=== PATIENT | female | born 1950 | race Caucasian/White ===

== ENCOUNTER 2019-07-18 12:11 | Outpatient (CLI) | payer MEDICARE, OTHER, SELFPAY ==
--- NOTE | 2019-07-18 | ECHO_ITS ---
Patient Info Name: Syeda Marks Age: 68 years : 1950 Gender: Female Ht: 64 in Wt: 200 lbs BSA: 2.06 m2 HR: 99 bpm BP: 155 / 87 mmHg Heart Rhythm: Sinus Rhythm Technical Quality: Good Exam Date: 07/18/2019 12:54 PM Exam Location: [facility] Patient Status: Outpatient Admit Date: 07/18/2019 Staff Ordering Physician: Kiran Rivera MD Clinical Molecular Geneticist: Sabi Caba RDCS Attending Provider: Kiran Rivera MD Referring Physician: Miguel HOWELL; Exam Type: CA echo doppler color flow Study Info Indications Z01.818 - Encounter for other preprocedural examination Complete two-dimensional, color flow and Doppler transthoracic echocardiogram is performed. Summary 1. Left ventricular chamber dimension is normal. 2. Left ventricular systolic function is normal, estimated at 60-65%. 3. No valvular abnormalities. 4. Compared with exam from September of last year there are no differences. Left Ventricle Left ventricular chamber dimension is normal. Left ventricular systolic function is normal, estimated at 60-65%. The left ventricular diastolic function is grade I diastolic dysfunction. Right Ventricle Right ventricular chamber dimension is normal. Left Atria Left atrial chamber dimension is normal. Right Atria Right atrial chamber dimension is normal. Aortic Valve The aortic valve is normal. Pulmonic Valve The pulmonic valve is not well visualized. Mitral Valve The mitral valve has normal leaflets. Tricuspid Valve The tricuspid valve leaflets are normal. Pericardium/Pleural The pericardium appears normal. Aorta The aortic root size at the sinus of Valsalva is normal. Left Ventricular Outflow Tract Name Value Normal LVOT 2D LVOT Diameter 1.9 cm LVOT Doppler LVOT Peak Gradient 4 mmHg LVOT Mean Gradient 2 mmHg LVOT VTI 21 cm LVOT VTI/AV VTI Ratio 1.1 LVOT Stroke Volume 57 ml LVOT CO 4.7 l/min LVOT CI 2.3 l/min/m2 Pulmonic Valve Name Value Normal RVOT Doppler RVOT Peak Gradient 2 mmHg PV Doppler PV Peak Gradient 3 mmHg Mitral Valve Name Value Normal MV Doppler MV Decel [place] 397 cm/s2 MV PHT 51 ms MV Area (PHT) 4.3 cm2 4.0-5.0 MV Diasto
== END 2019-07-18 12:12 | disposition home or self-care (01) ==
PROVIDERS: PCP Internal Medicine; Visit Provider Internal Medicine Hematology & Oncology
DX: Z01.818 Encounter for other preprocedural examination (principal); C50.911 Malignant neoplasm of unspecified site of right female breast
CPT/HCPCS: 93306

== ENCOUNTER 2020-01-05 09:29 | Outpatient (CLI) | payer MEDICARE, OTHER, SELFPAY ==
--- NOTE | 2020-01-05 | ECHO_ITS ---
Patient Info Name: Syeda Marks Age: 69 years : 1950 Gender: Female Ht: 64 in Wt: 211 lbs BSA: 2.12 m2 HR: 83 bpm BP: 137 / 66 mmHg Heart Rhythm: Sinus Rhythm Technical Quality: Good Exam Date: 01/05/2020 10:07 AM Exam Location: [facility] Patient Status: Outpatient Admit Date: 01/05/2020 Staff Ordering Physician: Kiran Rivera MD Pump Tester: Christie De Paz RDCS Attending Provider: Kiran Rivera MD Referring Physician: Miguel HOWELL; Exam Type: CA echo doppler color flow Study Info Indications C50.111 - Malignant neoplasm of central portion of right female breast Complete two-dimensional, color flow and Doppler transthoracic echocardiogram is performed. Summary 1. Complete two-dimensional, color flow and Doppler transthoracic echocardiogram is performed. 2. Left ventricular chamber dimension is normal. 3. Left ventricular systolic function is normal, estimated at 60-65%. 4. There is mildly increased left ventricular wall thickness. 5. The left ventricular diastolic function is grade I diastolic dysfunction. 6. Left atrial chamber dimension is mildly enlarged. 7. There is mild mitral valve regurgitation. 8. There is mild tricuspid valve regurgitation. Left Ventricle Left ventricular chamber dimension is normal. Left ventricular systolic function is normal, estimated at 60-65%. There is mildly increased left ventricular wall thickness. The left ventricular diastolic function is grade I diastolic dysfunction. Right Ventricle Right ventricular chamber dimension is normal. Right ventricular systolic function is normal. Left Atria Left atrial chamber dimension is mildly enlarged. Right Atria Right atrial chamber dimension is normal. Atrial Septum Intact interatrial septum visualized by color flow imaging. Aortic Valve The aortic valve is probable trileaflet. There is no aortic valve sclerosis. There is no aortic valve stenosis. There is trace aortic valve regurgitation. Pulmonic Valve The pulmonic valve is normal. There is no pulmonic valve stenosis. There is trace pulmonic regurgitation. Mitral Valve The mitral valve has normal leaflets. There is no mitral valve stenosis. There is mild mitral valve regurgitation. Tricuspid Valve The tricuspid valve leaflets are normal. There is no significant tricuspid valve stenosis. There is mild tricuspid valve regurgitation. No pulmonary hypertension, estimated pulmonary arterial systolic pressure is 32 mmHg. Pericardium/Pleural The pericardium appears normal. There is no pericardial effusion. Inferior Vena Cava Normal inferior vena cava with >50% collapse upon inspiration consistent with normal right atrial pressure, 5 mmHg. Aorta The aortic root size at the sinus of Valsalva is normal. Left Ventricular Outflow Tract Name Value Normal LVOT 2D LVOT Diameter 2.0 cm LVOT Doppler LVOT Peak Gradient 4 mmHg LVOT Mean Gradient 3 mmHg LVOT VTI 23 cm LVOT VTI/AV VTI Ratio 0.9
== END 2020-01-05 09:30 | disposition home or self-care (01) ==
LOC: ANHCARD 09:29
PROVIDERS: PCP Internal Medicine; Visit Provider Internal Medicine Hematology & Oncology
DX: C50.911 Malignant neoplasm of unspecified site of right female breast (principal); I34.0 Nonrheumatic mitral (valve) insufficiency; I36.1 Nonrheumatic tricuspid (valve) insufficiency
CPT/HCPCS: 93306

== ENCOUNTER 2020-04-11 16:09 | Outpatient (CLI) | payer MEDICARE, OTHER, SELFPAY ==
[2020-04-11 16:57] LABS: Alanine Aminotransferase 25 U/L (4-35); Aspartate Amino Transferase 27 U/L (14-36)
== END 2020-04-11 16:10 | disposition home or self-care (01) ==
LOC: ANHLAB 16:12
PROVIDERS: PCP Internal Medicine; Visit Provider Podiatrist Foot & Ankle Surgery
DX: B35.1 Tinea unguium (principal)
CPT/HCPCS: 36415; 84450; 84460

== ENCOUNTER → 2020-07-28 03:15 | Outpatient (CLI) | payer MEDICARE, OTHER, SELFPAY ==
[2020-07-28 19:46] LABS: SARS-CoV-2 RNA PCR Negative
== END ==
PROVIDERS: PCP Internal Medicine; Visit Provider Surgery
DX: Z01.812 Encounter for preprocedural laboratory examination (principal); Z20.822 Contact with and (suspected) exposure to COVID-19
CPT/HCPCS: C9803; U0003; U0005

== ENCOUNTER 2020-08-01 01:27 | Day surgery (SDC) | payer MEDICARE, OTHER, SELFPAY ==
[2020-07-17 10:12] VITALS: BMI 32.9
[2020-08-01 10:09] VITALS: BP 143/63; PULSE 97; RESP 20; TEMP 36.8; O2SAT 100
[2020-08-01] MEDS: LACTATED RINGERS 1,000 ML 30 ML IV CONT ×2 (10:30→12:26)
--- NOTE | 2020-08-01 10:48 | WPDANESEPPF ---
Anes - Initial Pre Proc Eval Procedure: Operation Date: 08/01/20 12:00 Proposed Procedures p Removal Timi Cath - Sandra Camacho MD Date/Time: 08/01/20 10:48 Surgeon: Sandra Camacho MD Pre Op Diagnosis: invasive ductal CA of breast Patient Data Age: 69 Gender: F Height: 5 ft 4 in Weight: 96.6 kg Last Vital Signs Temp 36.8 C 08/01/20 10:09 Pulse 97 08/01/20 10:09 Resp 20 08/01/20 10:09 BP 143/63 H 08/01/20 10:09 Pulse Ox 100 08/01/20 10:09 Allergies Allergy/AdvReac Type Severity Reaction Status Date / Time No Known Allergies Allergy Verified 08/01/20 10:21 Home Medications Medication Instructions Recorded Confirmed Type ascorbic acid (vitamin C) 500 mg PO DAILY 12/17/18 08/01/20 History famotidine 20 mg PO DAILY PRN 12/17/18 08/01/20 History multivitamin 1 tablet PO DAILY 12/17/18 08/01/20 History anastrozole 1 mg PO DAILY 06/08/19 08/01/20 History diphenoxylate-atropine 2.5 1 tablet PO QID PRN 07/20/19 08/01/20 History mg-0.025 mg tablet Lamisil 250 mg PO DAILY 05/24/20 08/01/20 History lisinopril 20 mg PO DAILY 08/01/20 08/01/20 History Patient hx anesthesia problems: none Family hx anesthesia problems: none PMFSH Past Medical History Medical History HTN (hypertension) Surgical History Surgical History Hx of appendectomy Family History Family History Mother Patient's mother is Father Cerebrovascular accident Social History Social History Smoking status: Never smoker Second hand tobacco smoke exposure: No Alcohol intake: current Drinks per week: 1 Substance use: never Living arrangements: with family Additional living arrangements comments: HUSB Spiritual care concerns: No Anes - Eval Final PreProcedure Day of Procedure 08/01/20 10:48 Patient weight: obese Heart: regular rate and rhythm Lungs: clear to auscultation Airway: Mallampati scale class II Neurological: alert and oriented Last oral intake: >/= 8 hours ASA classification: III Emergent: no Anesthetic plan: proceed Anesthesia type and monitoring: general GIVS and standard monitoring Informed Consent: The patient's anesthetic plan and its attendant risks and benefits were discussed with the patient/family/POA. Questions were solicited and answers provided to the satisfaction of the patient/family/POA.
--- NOTE | 2020-08-01 11:41 | PM.IMHP ---
H&P: HPI History of Present Illness Date/Time: 08/01/20 11:41 Pt is a 69 y/o F presenting for removal of VAD. Pt is s/p treatment for R breast cancer. Pt reports no issues c VAD. Pt reports it is regularly flushed. Chief Complaint: R breast cancer Review of Systems Review of Systems: All systems reviewed & are unremarkable except as noted in HPI and below PMFSH Past Medical History Medical History HTN (hypertension) Surgical History Surgical History Hx of appendectomy Family History Family History Mother Patient's mother is Father Cerebrovascular accident Social History Social History Smoking status: Never smoker Second hand tobacco smoke exposure: No Alcohol intake: current Drinks per week: 1 Substance use: never Living arrangements: with family Additional living arrangements comments: HUSB Spiritual care concerns: No Meds Home Medications and Allergies Home Medications Medication Instructions Recorded Confirmed Type ascorbic acid (vitamin C) 500 mg PO DAILY 12/17/18 08/01/20 History famotidine 20 mg PO DAILY PRN 12/17/18 08/01/20 History multivitamin 1 tablet PO DAILY 12/17/18 08/01/20 History anastrozole 1 mg PO DAILY 06/08/19 08/01/20 History diphenoxylate-atropine 2.5 1 tablet PO QID PRN 07/20/19 08/01/20 History mg-0.025 mg tablet Lamisil 250 mg PO DAILY 05/24/20 08/01/20 History lisinopril 20 mg PO DAILY 08/01/20 08/01/20 History Allergies Allergy/AdvReac Type Severity Reaction Status Date / Time No Known Allergies Allergy Verified 08/01/20 10:21 Vital Signs Vital Signs - 24 hr 08/01/20 10:09 Temperature 36.8 C Pulse Rate 97 Respiratory Rate 20 Blood Pressure 143/63 H Pulse Oximetry 100 Exam Const: General: cooperative, comfortable and no acute distress Orientation/consciousness: patient oriented x3 Chest: Chest palpation & inspection: normal inspection of the chest Other: L sided VAD - C/D/I Resp: Effort & Inspection: normal respiratory effort Auscultation: clear to auscultation bilaterally Cardio: Rate: regular rate Rhythm: regular rhythm GI: Inspection: normal to inspection GI Palp: No abdominal tenderness, Yes Soft to palpation and No Tenderness to palpation present (GI) Skin: General skin exam: normal color and no rashes or lesions noted Assessment and Plan Assessment and plan (1) Malignant neoplasm of upper-inner quadrant of right breast in female, estrogen receptor positive: Code(s): C50.211 - Malignant neoplasm of upper-inner quadrant of right female breast; Z17.0 - Estrogen receptor positive status [ER+] Status: Acute Assessment and Plan: will setup for removal today
--- NOTE | 2020-08-01 11:46 | WPDHPUPDATE1 ---
History and Physical Update Update Date/Time: 08/01/20 11:46 History and Physical has been reviewed, including an updated exam of the patient. There are NO changes in the patient's condition. Risks, benefits, and alternatives have been discussed and questions answered. Patient agrees to proceed with procedure.
[2020-08-01] MEDS: KETOROLAC 15 MG/ML VIAL (*BKC) IV PUSH (12:08)
--- NOTE | 2020-08-01 12:17 | PM.PROC ---
Procedure Note - Detailed Date of procedure: 08/01/20 Pre-op diagnosis: invasive ductal CA of breast Post-op diagnosis: same Procedure performed: Removal left chest venous access device Description of procedure: The patient was taken to the operating room placed in the supine position. After adequate induction of MAC anesthesia, the patient was prepped and draped in the normal sterile fashion. A time-out was then done to verify the patient's identity, as well as the procedure being performed. I began by localizing the previous incision line in the left chest and around the port itself. Once this was done, I made an incision through the old incision to the level of the port. I then bluntly dissected around the port, and located the 2 sutures holding the port in place. I then cut the 2 sutures and removed the port from the pocket. I was then able to remove the port and catheter in full. The catheter was noted in the left subclavian vein. I then held pressure at the level of the left subclavian vein for approximately 5 minutes. Hemostasis was noted after pressure was held. I then localized the pocket further and closed the subcutaneous tissue with 3 0 Vicryl suture. I then closed the skin with 4 O Monocryl subcuticular suture. Dermabond was then placed on the wound. The patient tolerated the procedure well, was alert and awake in the operating room postoperatively, and will be transferred to the recovery in stable condition. Implants: none Anesthesia: MAC and local Surgeon: Sandra Camacho MD Estimated blood loss (mL): 5 Drains: No Packing: No Pathology: none sent Complications: No immediate complications Condition: stable Disposition: PACU Findings: removal left-sided VAD
[2020-08-01 12:24] VITALS: BP 128/61; PULSE 94; RESP 16; O2SAT 97
[2020-08-01 13:00] VITALS: BP 119/56; PULSE 82; RESP 16
[2020-08-01 13:30] VITALS: BP 106/60; PULSE 72; RESP 16
== END 2020-08-01 13:45 | disposition home or self-care (01) ==
PROVIDERS: PCP Internal Medicine; Visit Provider Surgery
PROC: (CPT 36589; principal; 2020-08-01 12:00)
DX: Z45.2 Encounter for adjustment and management of vascular access device (principal); Z85.3 Personal history of malignant neoplasm of breast; I10 Essential (primary) hypertension; Z79.811 Long term (current) use of aromatase inhibitors; E66.9 Obesity, unspecified; Z68.36 Body mass index [BMI] 36.0-36.9, adult
CPT/HCPCS: 36590; J0690; J1100; J1885; J2250; J2405; J2704; J3010; J7120

== ENCOUNTER 2021-09-10 11:45 | Outpatient (CLI) | payer MEDICARE, OTHER, SELFPAY ==
[2021-09-10 16:16] LABS: Cholesterol 265 mg/dL (0-200); HDL Direct 43 mg/dL; Triglycerides 270 mg/dL (<150)
[2021-09-10 16:31] LABS: LDL Cholesterol Direct 118 mg/dL
[2021-09-10 18:57] LABS: Folic Acid > 20.0 ng/mL (2.76->20)
== END 2021-09-10 11:46 | disposition home or self-care (01) ==
LOC: ANHLAB 11:47
PROVIDERS: PCP Physician Assistant; Visit Provider Physician Assistant
DX: E66.9 Obesity, unspecified (principal); R53.83 Other fatigue
CPT/HCPCS: 36415; 80061; 82607; 82746; 84443

== ENCOUNTER 2021-10-01 10:16 | Outpatient (CLI) | payer MEDICARE, OTHER, SELFPAY ==
--- NOTE | ~2021-10-01 | PE_ITS ---
EXAMINATION: PET skull to mid thigh DATE: 10/01/2021 12:34 INDICATION: Malignant neoplasm of the upper inner quadrant of the right breast TECHNIQUE: Blood glucose level was 101 mg/dL. 10.247 mCi of 18-fluorodeoxyglucose (18-FDG) was admini stered i.v. Low dose computed tomography (CT) images were acquired from the base of the brain to the proximal thighs for attenuation correction and anatomic localization. Positron emission tomography (P ET) images were acquired in the same distribution beginning 56 minutes after injection. Images includ ing fused PET/CT images were reconstructed in axial, coronal, and sagittal planes. Automated exposure control technique was employed. The dose-length product was 1006.63mGy-cm. COMPARISON: None FINDINGS: Head/neck: There is symmetric increased activity in the oral cavity, masseter muscles, laryngeal muscles and ocu lar muscles without CT correlate, likely physiologic. No pathologically enlarged cervical lymphadenop athy or suspicious foci of increased soft tissue FDG uptake in the visualized head or neck. Chest: Mild emphysema suggested however evaluation of fine pulmonary parenchymal detail is somewhat limited by motion artifact throughout the majority of the lungs. 11 x 9 mm noncalcified left lower lobe nodul e at the posterior sulcus without evident FDG uptake. There are couple small calcified nodules in the right upper lobe consistent with old granulomatous disease. Mild bibasilar atelectasis. Heart size i s normal. No pericardial or pleural effusion. Thoracic aorta is normal in caliber. Surgical clip and postoperative scarring at the upper inner quadrant of the right breast likely at the site of a report ed right breast cancer. No nodular soft tissue density a suspicious increased FDG uptake at this loca tion suggest local recurrence. Additional surgical clips at the right axilla consistent with associat ed lymph node dissection. Prominent increased FDG uptake at the bilateral patti likely related to meta static lymphadenopathy with maximal SUV of 11.6 on the right and 10.5 on the left. The associated lym ph nodes are unable to be clearly distinguished from the adjacent vasculature but do not appear signi ficantly enlarged. Abdomen/pelvis/proximal thighs: Physiologic renal accumulation and excretion of FDG activity in the kidneys, bladder and along portio ns of ureters. Normal degree and heterogenous pattern of increased uptake throughout the liver withou t radiologic correlate or dominant FDG avid lesion. Likely benign 1.5 cm low-attenuation lesion at th e medial aspect of the spleen without evident FDG uptake likely representing a splenic cyst or ottoniel ioma. The gallbladder, pancreas and bilateral adrenal glands are normal. Mild uptake scattered throug hout the bowels without radiologic correlate, also likely physiologic. Fibroid uterus with multiple l arge calcified uterine fibroids without increased FDG uptake. No pathologically enlarged abdominal or pelvic lymphadenopathy. No other suspicious FDG avid soft tissue lesions. Musculoskeletal: Numerous scattered FDG avid bone lesions many with subtle sclerosis scattered throughout the neck, ch est, abdomen, pelvis and proximal femurs. The largest includes a large confluent region of prominent increased FDG uptake occupying much of the right sacrum and adjacent right innominate bone where ther e is a subtle permeative pattern and patchy sclerosis consistent with metastatic disease. The maximal SUV of the disease in the right ilium is 13.2 in the region of the right ischium. Nondisplaced sagit tally oriented pathologic fracture at the right sacral ala. Additional likely pathologic fracture at the right pubic body with similar sclerosis and increased FDG uptake. IMPRESSION: 1. Widespread, FDG avid metastatic lesions of bone with likely pathologic fracture at the right sacra l ala and right pubic body. 2. Prominent
[2021-10-01 10:57] LABS: Glucose Point of Care 101 mg/dl (65-105)
== END 2021-10-01 10:17 | disposition home or self-care (01) ==
PROVIDERS: PCP Physician Assistant; Visit Provider Internal Medicine Hematology & Oncology
DX: C50.211 Malignant neoplasm of upper-inner quadrant of right female breast (principal); Z17.0 Estrogen receptor positive status [ER+]; D25.9 Leiomyoma of uterus, unspecified
CPT/HCPCS: 78815; A9552

== ENCOUNTER 2021-10-07 12:26 | Outpatient (CLI) | payer MEDICARE, OTHER, SELFPAY ==
[2021-10-07 13:07] LABS: INR 1.1; Prothrombin Time 14.1 Seconds (11.1-14.7)
[2021-10-07 13:08] LABS: Partial Thromboplastin Time 34.7 SECONDS (22.3-36.8)
== END 2021-10-07 12:27 | disposition home or self-care (01) ==
PROVIDERS: PCP Physician Assistant; Visit Provider Surgery
DX: C50.211 Malignant neoplasm of upper-inner quadrant of right female breast (principal); Z17.0 Estrogen receptor positive status [ER+]
CPT/HCPCS: 36415; 85610; 85730

== ENCOUNTER 2021-10-09 02:00 | Day surgery (SDC) | payer MEDICARE, OTHER, SELFPAY ==
--- NOTE | 2021-10-07 11:14 | PC.NURSE ---
Report to the Outpatient Waiting Room, entrance under the green pavilion located off [facility], at time _1200 on date ___10/09/21____. OR Time: _1400 . - You and your visitor will be asked a series of questions to screen for COVID 19 for your protection. - Only one visitor is allowed at this time. - The patient visitor is requested to leave or wait in car when not with patient. - A mask is required within the hospital. Patients may have clear liquids (water, carbonated beverages, clear teas, apple juice) until 3 hours prior to surgery with a maximum of 20 ounces. - No food from midnight until time of surgery - Infants may have breast milk until 4 hours before surgery, infant formula 6 hours prior to surgery. - Children will be allowed to drink immediately following surgery. If applicable, please bring a bottle or sippy cup to assist with drinking. Juice, water, soda, and popsicles are readily available. For infants on formula, please bring formula the day of surgery. Pacifiers are allowed. Take the following medications with a SIP of water the morning of surgery: _LETROZOLE Medications to discontinue per physician __ALL VITAMINS AND SUPPLEMENTS 3 DAYS PRE OP Date to take last dose____10/07/21 Please no make-up, nail togolese, hairspray, perfume, deodorant, or body powder the day of surgery. No jewelry (including any body piercings) or valuables the day of surgery, leave them at home. Please take a shower or bath the night before, or the morning of, surgery with an antibacterial soap. Wear comfortable, loose fitting clothing. Children are encouraged to wear pajamas. - Jewelry must be removed prior to entering the operating room. Rings and piercings that are not removed may be cut off. - The hospital will not accept responsibility for valuables. - Please leave all valuables, including medications, at home the day of surgery. If you are going home after surgery, a licensed security patrol driver must drive you home. - NO public transportation without another adult. - We recommend that an adult stay with you for 24 hours following discharge. - We also recommend that you do not drive, make important decision, drink alcoholic beverages, or take any drugs that were not prescribed by your health care provider for at least 24 hours after your discharge time. For Pediatric surgeries, we recommend two adults accompany the child home (only one inside the building at this time). Follow any additional instructions given to you from your surgeon. If you or anyone in your household have experienced Covid symptoms in the past week, please notify your surgeon or the nurse liaison at the phone number below for possible testing. Telephone instructions given to _PATIENT and asked if any additional questions and then verbalized understanding. Patient advised to call surgeon office or pre surgery nurse liaison [phone] if any additional questions.
[2021-10-07 11:21] VITALS: BMI 31.7
--- NOTE | 2021-10-08 15:38 | WPDANESEPPF ---
Anes - Initial Pre Proc Eval Procedure: Operation Date: 10/09/21 14:00 Proposed Procedures p Insertion Timi Cath - Kb Haro DO Date/Time: 10/08/21 15:38 Surgeon: Kb Haro DO Pre Op Diagnosis: malignant neoplasm of right breast Patient Data Age: 70 Gender: F Height: 1.63 m Weight: 83.95 kg Allergies Allergy/AdvReac Type Severity Reaction Status Date / Time No Known Allergies Allergy Verified 10/09/21 12:53 Home Medications Medication Instructions Recorded Confirmed Type ascorbic acid (vitamin C) 500 mg 500 mg PO DAILY 12/17/18 10/07/21 History tablet famotidine 20 mg tablet 20 mg PO DAILY PRN Dyspepsia 12/17/18 10/07/21 History multivitamin 1 tablet PO DAILY 12/17/18 10/07/21 History diphenoxylate-atropine 2.5 1 tablet PO QID PRN diarrhea 07/20/19 10/09/21 History mg-0.025 mg tablet (Lomotil) lisinopril 20 mg tablet See Rx Instructions .Route 01/18/21 10/07/21 Rx .COMPLEX #90 tabs acetaminophen 500 mg capsule 500 mg PO Q6H PRN Pain 10/07/21 10/07/21 History calcium carbonate 600 mg-vitamin 1 tablet PO DAILY 10/07/21 10/07/21 History D3 10 mcg (400 unit) tablet (Calcium 600 + D(3)) cholecalciferol (vitamin D3) 50 50 mcg PO DAILY 10/07/21 10/07/21 History mcg (2,000 unit) tablet ferrous sulfate 325 mg (65 mg 325 mg PO DAILY 10/07/21 10/07/21 History iron) tablet letrozole 2.5 mg tablet 2.5 mg PO DAILY 10/07/21 10/07/21 History Patient hx anesthesia problems: none Family hx anesthesia problems: none Results Review: All pre-operative results and documents have been reviewed as part of the pre-operative evaluation. [facility] Past Medical History Medical History (Updated 10/08/21 @ 17:05 by Kiran Rivera MD) Anemia GERD (gastroesophageal reflux disease) History of breast cancer HTN (hypertension) Surgical History Surgical History Hx of appendectomy Family History Family History Mother Patient's mother is Father Cerebrovascular accident Social History Social History Smoking status: Never smoker Second hand tobacco smoke exposure: No Alcohol intake: current Drinks per week: 1 Substance use: never Living arrangements: with family Additional living arrangements comments: HUSB Spiritual care concerns: No Anes - Eval Final PreProcedure Day of Procedure 10/08/21 15:38 Patient weight: obese Heart: regular rate and rhythm Lungs: clear to auscultation Airway: Mallampati scale class II Neurological: alert and oriented Last oral intake: >/= 8 hours ASA classification: III Emergent: no Anesthetic plan: proceed Anesthesia type and monitoring: general GIVS and standard monitoring Results Review: All pre-operative results and documents have been reviewed as part of the pre-operative evaluation. Informed Consent: The patient's anesthetic plan and its attendant risks and benefits were discussed with the patient/family/POA. Questions were solicited and answers provided to the satisfaction of the patient/family/POA.
--- NOTE | ~2021-10-09 | XR_ITS ---
XR chest port-a-cath/central 10/09/2021 15:59 Indication: Insertion of portacatheter Procedure: AP portable chest Comparison: 03/22/2019 Findings: Portacatheter tip in the SVC. Heart size normal. Bibasilar atelectasis. No focal pneumonia, edema or pneumothorax. Impression: 1: Bibasilar atelectasis. Reviewed, dictated and finalized at location A. Impression: 1: Bibasilar atelectasis.
--- NOTE | ~2021-10-09 | XR_ITS ---
EXAMINATION: XR fl guide central line place DATE: 10/09/2021 14:00 CDT INDICATION: INSERT LYNDA CATH . TECHNIQUE: 2 fluoroscopic images of the left lower and right upper mediastinum were obtained during c entral line placement performed by the surgeon. I was not present in the operating room. Fluoroscopy exposure time was 88.1 seconds. Cumulative dose was 15.68 mGy. COMPARISON: None FINDINGS: Left-sided catheter tubing terminates in the cavoatrial junction. IMPRESSION: Fluoroscopic documentation of central line placement. Please refer to the operative note for complete procedural details . Reviewed, dictated and finalized at location K. IMPRESSION: Fluoroscopic documentation of central line placement. Please refer to the opera tive note for complete procedural details .
[2021-10-09 12:30] VITALS: BP 147/86; PULSE 115; RESP 14; TEMP 36.2; O2SAT 100
[2021-10-09] MEDS: LACTATED RINGERS 1,000 ML 30 ML IV CONT (12:30)
[2021-10-09] MEDS: KETOROLAC 15 MG/ML VIAL (*BKC) IV PUSH (12:47)
--- NOTE | 2021-10-09 13:24 | SUR.PREOP ---
pt informed delay in procedure
--- NOTE | 2021-10-09 14:31 | PM.IMHP ---
H&P: HPI History of Present Illness Date/Time: 10/09/21 14:31 Chief Complaint: Metastatic right breast cancer Narrative: 70 yo woman presents for port placement. She previously had a portacath in the left chest. This was removed 1 year ago, but now she has evidence of recurrent cancer. She now needs another port. Review of Systems Review of Systems: All systems reviewed & are unremarkable except as noted in HPI and below Constitutional: Constitutional: Denies chills, Denies fever(s), Denies headache(s) and Denies weight loss Eyes: Eyes: Denies change in vision ENT: Denies dizziness, Denies headache(s), Denies neck mass and Denies throat swelling Cardiovascular: Cardiovascular: Denies chest pain, Denies lightheadedness and Denies dyspnea Respiratory: Respiratory: Denies cough, Denies dyspnea and Denies wheezing Gastrointestinal: Gastrointestinal: Denies abdominal pain, Denies change in bowel habits, Denies nausea and Denies vomiting Genitourinary: Genitourinary: Denies hematuria and Denies dysuria Musculoskeletal: Musculoskeletal: Reports as per HPI Integumentary/Breasts: Skin/Breast: Reports as per HPI Neurologic: Denies dizziness and Denies headache(s) Allergic/Immunologic: Allergic/Immunologic: Denies throat swelling and Denies wheezing [facility] Past Medical History Medical History (Updated 10/08/21 @ 17:05 by Kiran Rivera MD) Anemia GERD (gastroesophageal reflux disease) History of breast cancer HTN (hypertension) Surgical History Surgical History Hx of appendectomy Family History Family History Mother Patient's mother is Father Cerebrovascular accident Social History Social History Smoking status: Never smoker Second hand tobacco smoke exposure: No Alcohol intake: current Drinks per week: 1 Substance use: never Living arrangements: with family Additional living arrangements comments: [facility] Spiritual care concerns: No Meds Home Medications and Allergies Home Medications Medication Instructions Recorded Confirmed Type ascorbic acid (vitamin C) 500 mg 500 mg PO DAILY 12/17/18 10/07/21 History tablet famotidine 20 mg tablet 20 mg PO DAILY PRN Dyspepsia 12/17/18 10/07/21 History multivitamin 1 tablet PO DAILY 12/17/18 10/07/21 History diphenoxylate-atropine 2.5 1 tablet PO QID PRN diarrhea 07/20/19 10/09/21 History mg-0.025 mg tablet (Lomotil) lisinopril 20 mg tablet See Rx Instructions .Route 01/18/21 10/07/21 Rx .COMPLEX #90 tabs acetaminophen 500 mg capsule 500 mg PO Q6H PRN Pain 10/07/21 10/07/21 History calcium carbonate 600 mg-vitamin 1 tablet PO DAILY 10/07/21 10/07/21 History D3 10 mcg (400 unit) tablet (Calcium 600 + D(3)) cholecalciferol (vitamin D3) 50 50 mcg PO DAILY 10/07/21 10/07/21 History mcg (2,000 unit) tablet ferrous sulfate 325 mg (65 mg 325 mg PO DAILY 10/07/21 10/07/21 History iron) tablet letrozole 2.5 mg tablet 2.5 mg PO DAILY 10/07/21 10/07/21 History Allergies Allergy/AdvReac Type Severity Reaction Status Date / Time No Known Allergies Allergy Verified 10/09/21 12:53 Vital Signs Vital Signs - 24 hr 10/09/21 12:30 Temperature 36.2 C L Pulse Rate 115 H Respiratory Rate 14 Blood Pressure 147/86 H Pulse Oximetry 100 Oxygen Delivery Room Air Exam Const: General: no acute distress and alert Orientation/consciousness: patient oriented x3 HENMT: Head: normocephalic and atraumatic Ears: hearing grossly normal bilaterally General nose exam: Normal nares present Mouth: Yes Normal oral and palatal mucosa present Eyes: Periorbital: periorbital findings normal Sclera: sclerae normal EOM: EOMs intact bilaterally Neck: Neck: normal visual inspection, no lymphadenopathy and trachea midline Chest: Ch
--- NOTE | 2021-10-09 14:34 | WPDHPUPDATE1 ---
History and Physical Update Update Date/Time: 10/09/21 14:34 History and Physical has been reviewed, including an updated exam of the patient. There are NO changes in the patient's condition. Risks, benefits, and alternatives have been discussed and questions answered. Patient agrees to proceed with procedure.
[2021-10-09] MEDS: ceFAZolin 2 GM/D5W 50 ML 2 GM/50 ML BAG IVPB (14:42)
[2021-10-09] MEDS: LIDO 1%/EPINEPHRINE 1:100,000 50 ML VIAL INFILTRATE (15:06)
[2021-10-09] MEDS: HEPARIN SODIUM, PORCINE 10,000 UNITS/10 ML VIAL 3000 UNITS IRRIGATION (15:10)
[2021-10-09] MEDS: HEPARIN SODIUM 5,000 UNITS/ML VIAL 5000 UNITS IRRIGATION (15:11)
--- NOTE | 2021-10-09 15:26 | W.PM.PROC2 ---
Procedure Note - Detailed Date of Procedure 10/09/21 Pre-op Diagnosis malignant neoplasm of right breast Post-op Diagnosis Same Procedure Performed Left Internal Jugular tunneled Port-a-Cath placement using ultrasound and fluoroscopic guidance Surgeon Kb Haro, DO Anesthesia MAC and Local (0.5% bupivicaine with epinephrine) Indications This is a 70-year-old woman who presents with recurrent metastatic breast cancer. She was previously treated for breast cancer and she had a port placed which was removed about 1 year ago. On recent follow-up imaging she was found to have metastatic breast cancer involving the bones. She now is in need of another port placement to start treatment. Findings SonoSite ultrasound was used to identify the left internal jugular vein. This was visualized as a compressible vessel just lateral to the pulsatile carotid artery. An 18 gauge introducer needle was then advanced under ultrasound guidance directly into the lumen of the left internal jugular vein. Dark nonpulsatile blood was aspirated. Fluoroscopy was then used to guide advancement of the guidewire followed by the dilator and sheath. The final fluoroscopic images demonstrated the catheter tip in the distal SVC and no kinks along its path. Description of Procedure Procedure as well as risks, benefits, and alternatives were discussed with patient. Written consent was obtained and placed in chart prior to procedure. Patient was brought back to surgical suite. Was placed supine on operating table. Time-out was done confirm patient procedure. IV sedation was then administered by the Anesthesia Department. The chest and neck area was prepped and draped in sterile fashion using chlorhexidine prep. Patient was placed in Trendelenburg position. SonoSite ultrasound was used to identify the left internal jugular vein. It was visualized as a compressible vessel just lateral to the carotid artery. 1% lidocaine with epinephrine was infiltrated directly over the vessel under ultrasound guidance. An 18 gauge introducer needle was then advanced under ultrasound guidance directly into the left internal jugular vein. Dark nonpulsatile blood was aspirated. A 0.035 in guidewire was then advanced through the needle under fluoroscopic guidance. The guidewire was visualized advancing all the way down into the superior vena cava. 1% lidocaine with epinephrine was then infiltrated on the left anterior chest and along the tract up to the guidewire insertion site. A 3 cm incision was made with a 15 blade scalpel, and electrocautery was then used for dissection down through the subcutaneous tissue to the pectoral fascia. A pocket was created just inferior to the incision using blunt dissection. A small bear incision was then also made at the insertion site at the neck. The tunneler was then advanced from the chest incision up to the neck incision and the catheter tubing was brought up through this tract. The dilator and sheath were then advanced over the guidewire under fluoroscopic visualization. The dilator and guidewire were then removed leaving the sheath in place. The catheter tubing was then advanced through the sheath under fluoroscopic guidance. The sheath was unsnapped and carefully peeled away. The catheter tubing was released underneath the neck incision. Fluoroscopy was used to confirm proper placement of the catheter tubing and no kinks along its path. The catheter was then cut to proper length and secured to the port. The port was then accessed with a Jackson needle and aspirated and flushed with heparinized saline. The port function with ease. The port was then hep-locked with Hep-Lock solution. The port was then placed within the pocket that was created, and was secured to the fascia using 3 0 Prolene simple interrupted sutures. The patient was flattened out in bed. Christina's fascia was reapproximated using 3 0 Vicryl simple interrupted sutures. The skin of the in
[2021-10-09 15:28] VITALS: BP 101/62; PULSE 94; RESP 16; O2SAT 97
--- NOTE | 2021-10-09 15:51 | SUR.PHASEII ---
PORTABLE CXR IN PROGRESS.
[2021-10-09 15:55] VITALS: BP 96/73; PULSE 91; RESP 16
[2021-10-09 16:25] VITALS: BP 123/57; PULSE 83; RESP 16
== END 2021-10-09 16:46 | disposition home or self-care (01) ==
PROVIDERS: PCP Physician Assistant; Visit Provider Surgery
PROC: (CPT 36561; principal; 2021-10-09 14:00)
DX: C50.211 Malignant neoplasm of upper-inner quadrant of right female breast (principal); C79.51 Secondary malignant neoplasm of bone; Z17.0 Estrogen receptor positive status [ER+]; I10 Essential (primary) hypertension; D64.9 Anemia, unspecified; K21.9 Gastro-esophageal reflux disease without esophagitis; E66.9 Obesity, unspecified; Z68.31 Body mass index [BMI] 31.0-31.9, adult
CPT/HCPCS: 36561; 77001; C1788; J0690; J1644; J1885; J2250; J2704; J3010; J7040; J7120

== ENCOUNTER 2021-10-30 12:15 | Outpatient (CLI) | payer MEDICARE, OTHER, SELFPAY ==
--- NOTE | 2021-10-30 | ECHO_ITS ---
Patient Info Name: Syeda Marks Age: 70 years : 1950 Gender: Female Ht: 64 in Wt: 185 lbs BSA: 1.98 m2 HR: 100 bpm BP: 174 / 80 mmHg Technical Quality: Good Exam Date: 10/30/2021 12:55 PM Exam Location: [facility] Patient Status: Outpatient Admit Date: 10/30/2021 Staff Ordering Physician: Kiran Rivera MD Survival Specialist: Ean Campbell RDCS, RT Attending Provider: Kiran Rivera MD Referring Physician: Miguel HOWELL; Exam Type: CA echo doppler color flow Study Info Indications C80.1 - Malignant (primary) neoplasm, unspecified Complete two-dimensional, color flow and Doppler transthoracic echocardiogram is performed. Strain analysis performed. Summary 1. Complete two-dimensional, color flow and Doppler transthoracic echocardiogram is performed. 2. Left ventricular chamber dimension is normal. 3. Left ventricular systolic function is normal, estimated at 65-70%. 4. The left ventricular diastolic function is grade I diastolic dysfunction. 5. E/e' 9 is minimally elevated. 6. Global longitudinal strain is mildly abnormal at -16.0%. Left Ventricle E/e' 9 is minimally elevated. Global longitudinal strain is mildly abnormal at -16.0%. Left ventricular chamber dimension is normal. Left ventricular systolic function is normal, estimated at 65-70%. The left ventricular diastolic function is grade I diastolic dysfunction. Right Ventricle Right ventricular systolic function is normal and with normal TAPSE 2.4 cm. Right ventricular chamber dimension is normal. Left Atria Left atrial chamber dimension is normal. Right Atria Right atrial chamber dimension is normal. Aortic Valve The aortic valve is trileaflet. There is no aortic valve stenosis. There is no aortic valve regurgitation. Pulmonic Valve There is no pulmonic regurgitation. Mitral Valve There is no mitral valve stenosis. There is no mitral valve regurgitation. Tricuspid Valve There is no tricuspid valve regurgitation. Pericardium/Pleural There is no pericardial effusion. Inferior Vena Cava Normal inferior vena cava with >50% collapse upon inspiration consistent with normal right atrial pressure, 5 mmHg. Aorta The aortic root size at the sinus of Valsalva is normal. Left Ventricular Outflow Tract Name Value Normal LVOT 2D LVOT Diameter 2.0 cm LVOT Doppler LVOT Peak Gradient 4 mmHg LVOT Mean Gradient 2 mmHg LVOT VTI 16 cm LVOT VTI/AV VTI Ratio 0.7 LVOT Stroke Volume 50 ml LVOT CO 4.5 l/min LVOT CI 2.3 l/min/m2 Mitral Valve Name Value Normal MV Doppler MV Decel [place] 366 cm/s2 MV PHT
== END 2021-10-30 12:16 | disposition home or self-care (01) ==
LOC: ANHCARD 12:17
PROVIDERS: PCP Physician Assistant; Visit Provider Internal Medicine Hematology & Oncology
DX: C50.211 Malignant neoplasm of upper-inner quadrant of right female breast (principal); Z17.0 Estrogen receptor positive status [ER+]; C80.1 Malignant (primary) neoplasm, unspecified; I10 Essential (primary) hypertension
CPT/HCPCS: 93306

== ENCOUNTER 2022-01-16 08:19 | Outpatient (CLI) | payer MEDICARE, OTHER, SELFPAY ==
--- NOTE | ~2022-01-16 | NM_ITS ---
EXAMINATION: NM bone scan whole body DATE: 01/16/2022 12:52 INDICATION: Malignant neoplasm of upper inner quadrant of right breast. TECHNIQUE: 24.5 mCi Tc-99m HDP was administered intravenously. Delayed whole-body scintigrams were o btained. COMPARISON: PET/CT 10/01/21 FINDINGS: There is increased activity in the intertrochanteric regions of the proximal femora, bilate ral pelvis, most vertebral bodies, sternum, and scapulae correlating with lesions by PET/CT. There ar e foci of increased activity in the skull without CT correlate. These findings are consistent with me tastatic disease. IMPRESSION: 1. Widespread osseous metastatic disease. Reviewed, dictated and finalized at location A. PMENT TESTER
== END 2022-01-16 08:20 | disposition home or self-care (01) ==
LOC: ANHIMG 08:21
PROVIDERS: PCP Physician Assistant; Visit Provider Internal Medicine Hematology & Oncology
DX: C50.211 Malignant neoplasm of upper-inner quadrant of right female breast (principal); Z17.0 Estrogen receptor positive status [ER+]
CPT/HCPCS: 78306; A9561

== ENCOUNTER 2022-01-28 07:27 | Outpatient (CLI) | payer MEDICARE, OTHER, SELFPAY ==
--- NOTE | 2022-01-28 | ECHO_ITS ---
Patient Info Name: Syeda Marks Age: 71 years : 1950 Gender: Female Ht: 64 in Wt: 189 lbs BSA: 2.00 m2 HR: 85 bpm BP: 145 / 84 mmHg Technical Quality: Good Exam Date: 01/28/2022 9:53 AM [facility] Patient Status: Outpatient Admit Date: 01/28/2022 Staff Ordering Physician: Kiran Rivera MD Shot Polisher: Ean Campbell RDCS, RT Attending Provider: Kiran Rivera MD Referring Physician: Miguel HOWELL; Exam Type: CA echo doppler color flow Study Info Indications C80.1 - Malignant (primary) neoplasm, unspecified Complete two-dimensional, color flow and Doppler transthoracic echocardiogram is performed. Strain analysis performed. Summary 1. Complete two-dimensional, color flow and Doppler transthoracic echocardiogram is performed. 2. Left ventricular chamber dimension is normal. 3. Left ventricular systolic function is normal, estimated at 60-65%. 4. The left ventricular diastolic function is grade I diastolic dysfunction. 5. E/e' 6 is not elevated. 6. Global longitudinal strain is normal at -18.1%. 7. There is mild aortic valve sclerosis. 8. There is trace tricuspid valve regurgitation. Left Ventricle E/e' 6 is not elevated. Global longitudinal strain is normal at -18.1%. Left ventricular chamber dimension is normal. Left ventricular systolic function is normal, estimated at 60-65%. The left ventricular diastolic function is grade I diastolic dysfunction. Right Ventricle Right ventricular systolic function is normal and with normal TAPSE 2.1 cm. Right ventricular chamber dimension is normal. Left Atria Left atrial chamber dimension is normal. Right Atria Right atrial chamber dimension is normal. Aortic Valve The aortic valve is trileaflet. There is mild aortic valve sclerosis. There is no aortic valve stenosis. There is no aortic valve regurgitation. Pulmonic Valve There is no pulmonic regurgitation. Mitral Valve There is no mitral valve stenosis. There is no mitral valve regurgitation. Tricuspid Valve There is trace tricuspid valve regurgitation. RVSP is not calculated due to an inadequate TR jet. Pericardium/Pleural There is no pericardial effusion. Inferior Vena Cava Normal inferior vena cava with >50% collapse upon inspiration consistent with normal right atrial pressure, 5 mmHg. Aorta The aortic root size at the sinus of Valsalva is normal. Left Ventricular Outflow Tract Name Value Normal LVOT 2D LVOT Diameter 2.0 cm LVOT Doppler LVOT Peak Gradient 4 mmHg LVOT Mean Gradient 2 mmHg LVOT VTI 20 cm LVOT VTI/AV VTI Ratio 0.8 LVOT Stroke Volume 64 ml LVOT CO 5.9 l/min LVOT CI 3.0 l/min/m2 Mitral Valve Name Value Normal MV
== END 2022-01-28 07:28 | disposition home or self-care (01) ==
LOC: ANHCARD 07:28
PROVIDERS: PCP Physician Assistant; Visit Provider Internal Medicine Hematology & Oncology
DX: C50.211 Malignant neoplasm of upper-inner quadrant of right female breast (principal); Z17.0 Estrogen receptor positive status [ER+]; I35.8 Other nonrheumatic aortic valve disorders
CPT/HCPCS: 93306

== ENCOUNTER 2022-01-28 07:29 | Outpatient (CLI) | payer MEDICARE, OTHER, SELFPAY ==
--- NOTE | ~2022-01-28 | CT_ITS ---
EXAMINATION: CT chest abdomen pelvis w con DATE: 01/28/2022 07:59 INDICATION: Malignant neoplasm of upper inner quadrant of right breast; restaging TECHNIQUE: Computed tomography (CT) of the chest, abdomen and pelvis was performed with 100 CC Omnipa que 350 intravenous contrast. Automated exposure control and iterative reconstruction technique were employed. Exam dose: 1069.71 mGy-cm total exam DLP. COMPARISON: 10/01/2021 PET/CT scan FINDINGS: Left internal jugular Port-A-Cath catheter tip in the upper right atrium. Surgical clips and likely postsurgical seroma of the inner mid to upper right breast are again noted. There is mild skin thickening of the breast in this area. Right axillary surgical clips consistent with prior axillary node dissection.. Normal size and homogeneous enhancement of the thyroid gland. No hilar or mediastinal mass lesion or lymphadenopathy. Normal heart size. No pericardial or pleural effusion. No thoracic aortic aneurysm or dissection. There are occasional calcified pulmonary granulomas consistent with old pulmonary granulomatous disea se. Mild discoid atelectasis or scarring in the lower lung zones, most prominent at the left lower lobe. No pulmonary infiltrate or consolidation. No suspicious pulmonary mass density is noted. The gallbladder is present. No bile duct or pancreatic duct dilatation. No hepatic space-occupying mass lesion. No pancreatic mass lesion or calcification. 1.5 cm cystic lesion of the spleen, nonspecific. No splenomegaly. Normal morphology of the adrenal glands. 1.9 cm upper pole left renal cyst. No renal mass lesion or urinary tract calculus or hydroureteroneph rosis is evident. Urinary bladder is relatively evacuated. A large calcified uterine fibroids are noted Normal caliber of the abdominal aorta with minimal atherosclerotic calcification. No intraperitoneal or retroperitoneal or pelvic mass lesion or adenopathy or ascites. There are fluid levels in the small and large bowel suggesting possible enterocolitis. No bowel obstr uction, bowel wall thickening, pneumatosis or intraperitoneal free air is detected. There is extensive osteosclerotic metastatic disease of the axial skeleton, including sternum, spine, sacrum, pelvis, with significant progression particularly in the thoracic and lumbar spine since 10/01. There are associated pathologic mild to moderate anterior wedge compression fracture deformiti es of T9, T12 and L1 IMPRESSION: Progression of extensive osteosclerotic metastatic disease since 10/01/2021 Reviewed, dictated and finalized at Location A. Reviewed, dictated and finalized at location B. STED LIVING ASSISTANT
== END 2022-01-28 07:30 | disposition home or self-care (01) ==
PROVIDERS: PCP Physician Assistant; Visit Provider Internal Medicine Hematology & Oncology
DX: C50.211 Malignant neoplasm of upper-inner quadrant of right female breast (principal); C79.51 Secondary malignant neoplasm of bone; Z17.0 Estrogen receptor positive status [ER+]
CPT/HCPCS: 71260; 74177; 93306; Q9967

== ENCOUNTER 2022-04-18 07:24 | Outpatient (CLI) | payer MEDICARE, OTHER, SELFPAY ==
--- NOTE | 2022-04-18 | ECHO_ITS ---
Patient Info Name: Syeda Marks Age: 71 years : 1950 Gender: Female Ht: 64 in Wt: 189 lbs BSA: 2.00 m2 HR: 77 bpm BP: 163 / 88 mmHg Technical Quality: Good Exam Date: 04/18/2022 7:35 AM Exam Location: [facility] Patient Status: Outpatient Admit Date: 04/18/2022 Staff Ordering Physician: Kiran Rivera MD Attending Provider: Kiran Rivera MD Referring Physician: Miguel HOWELL; Exam Type: CA echo doppler color flow Study Info Complete two-dimensional, color flow and Doppler transthoracic echocardiogram is performed. Strain analysis performed. Summary 1. Complete two-dimensional, color flow and Doppler transthoracic echocardiogram is performed. 2. Left ventricular chamber dimension is normal. 3. Left ventricular systolic function is normal, estimated at 60-65%. 4. The left ventricular diastolic function is grade I diastolic dysfunction. 5. E/e' 9 is minimally elevated. 6. Global longitudinal strain is normal at -18.3%. 7. No pulmonary hypertension, estimated pulmonary arterial systolic pressure is 33 mmHg. Left Ventricle E/e' 9 is minimally elevated. Global longitudinal strain is normal at -18.3%. Left ventricular chamber dimension is normal. Left ventricular systolic function is normal, estimated at 60-65%. The left ventricular diastolic function is grade I diastolic dysfunction. Right Ventricle Right ventricular systolic function is normal and with normal TAPSE 2.5 cm. Right ventricular chamber dimension is normal. Left Atria Left atrial chamber dimension is normal. Right Atria Right atrial chamber dimension is normal. Aortic Valve The aortic valve is trileaflet. There is no aortic valve stenosis. There is no aortic valve regurgitation. Pulmonic Valve There is no pulmonic regurgitation. Mitral Valve There is no mitral valve stenosis. There is no mitral valve regurgitation. Tricuspid Valve There is no tricuspid valve regurgitation. No pulmonary hypertension, estimated pulmonary arterial systolic pressure is 33 mmHg. Pericardium/Pleural There is no pericardial effusion. Inferior Vena Cava Normal inferior vena cava with >50% collapse upon inspiration consistent with normal right atrial pressure, 5 mmHg. Aorta The aortic root size at the sinus of Valsalva is normal. Left Ventricular Outflow Tract Name Value Normal LVOT 2D LVOT Diameter 2.0 cm LVOT Doppler LVOT Peak Gradient 4 mmHg LVOT Mean Gradient 2 mmHg LVOT VTI 21 cm LVOT VTI/AV VTI Ratio 0.9 LVOT Stroke Volume 68 ml LVOT CO 5.2 l/min LVOT CI 2.6 l/min/m2 Pulmonic Valve Name Value Normal RVOT Doppler RVOT Peak Gradient
== END 2022-04-18 07:25 | disposition home or self-care (01) ==
LOC: ANHCARD 07:26
PROVIDERS: PCP Physician Assistant; Visit Provider Internal Medicine Hematology & Oncology
DX: Z51.81 Encounter for therapeutic drug level monitoring (principal); C50.911 Malignant neoplasm of unspecified site of right female breast
CPT/HCPCS: 93306

== ENCOUNTER 2022-04-29 08:21 | Outpatient (CLI) | payer MEDICARE, OTHER, SELFPAY ==
--- NOTE | ~2022-04-29 | CT_ITS ---
Clinical Indication: Breast cancer CT Scan of the Chest with Contrast: Technique: Contiguous sections were acquired throughout the chest after intravenous administration of 75 cc of Omnipaque 350. Dose reduction technique was used on this scan by utilizing automated exposu re control and iterative reconstruction technique. The dose-length product (DLP) was 273.72 mGy-cm. COMPARISON: 01/28/2022 Findings: There is no evidence of any significant mediastinal, hilar or axillary lymphadenopathy. No large pulm onary embolus seen. There is no evidence of aortic dissection or aneurysm. There is no evidence of pleural or pericardial effusion. Several calcified pulmonary granulomas noted. No suspicious pulmonary nodule seen. Images through the upper abdomen reveal stable splenic cyst. Extensive sclerotic osseous metastatic disease is unchanged from prior exam. Impression: Extensive osseous metastatic disease, unchanged. No significant pulmonary abnormality seen. Reviewed, dictated and finalized at [facility]. NG SPECIALIST Impression: Extensive osseous metastatic disease, unchanged. No significant pulmonary abnormality seen.
--- NOTE | ~2022-04-29 | NM_ITS ---
NM bone scan whole body INDICATION: Invasive ductal carcinoma the breasts TECHNIQUE: The patient was injected with 26.4 mCi Tc 99m HDP. Gamma camera images of the region of i nterest and whole body were obtained. COMPARISON: CT dated 04/29/2022 and bone scan dated 01/16/2022 FINDINGS: There are multiple foci of abnormal radiotracer uptake in the skull, thoracic and lumbar sp ine, bilateral ribs, sternum, intertrochanteric region of the right femur, consistent with metastatic disease. IMPRESSION: 1: Abnormal multifocal uptake throughout the visualized bones described above, consistent with wides pread osseous metastases. Reviewed, dictated and finalized at location L. SEARCH MANAGER IMPRESSION: 1: Abnormal multifocal uptake throughout the visualized bones described above, consistent with widespread osseous metastases.
== END 2022-04-29 08:22 | disposition home or self-care (01) ==
PROVIDERS: PCP Physician Assistant; Visit Provider Internal Medicine Hematology & Oncology
DX: C50.911 Malignant neoplasm of unspecified site of right female breast (principal); C79.51 Secondary malignant neoplasm of bone
CPT/HCPCS: 36415; 71260; 78306; 80053; 85025; 86300; A9503; Q9967

== ENCOUNTER 2022-07-22 08:31 | Outpatient (CLI) | payer MEDICARE, OTHER, SELFPAY ==
--- NOTE | ~2022-07-22 | CT_ITS ---
EXAMINATION:CT diagnostic chest w con DATE: 07/22/2022 09:06 INDICATION: Invasive ductal carcinoma of right breast. TECHNIQUE: Computed tomography (CT) of the chest was performed with 75 mL Omnipaque 350 intravenous c ontrast. Automated exposure control and iterative reconstruction technique were employed. The dose-le ngth product (DLP) was 260.19 mGy-cm. COMPARISON: Chest CT 04/29/2022 FINDINGS: There is mild scarring at the lung apices. Calcified pulmonary nodules are consistent with old granulomatous disease. There is mild radiation fibrosis in anterior right lung. There is mild ate lectasis bilaterally. No pleural effusion. There is a left internal jugular port with tip in right at rium. The heart size is normal. No pericardial effusion. There are surgical clips in right axilla. Th ere are changes of lumpectomy in right breast. There is a 1.7 cm cyst in the spleen. There is a 1.9 c m cyst in left kidney. There are widespread sclerotic lesions of bone, consistent with metastatic dis ease. There is mild chronic height loss of multiple vertebral bodies. IMPRESSION: 1. Stable widespread sclerotic lesions of bone, consistent with metastatic disease. Reviewed, dictated and finalized at location A. IMPRESSION: 1. Stable widespread sclerotic lesions of bone, consistent with metastatic dise ase.
--- NOTE | ~2022-07-22 | NM_ITS ---
EXAMINATION: NM bone scan whole body DATE: 07/22/2022 12:20 INDICATION: Invasive ductal carcinoma of right breast. TECHNIQUE: 23.1 mCi Tc-99m HDP was administered intravenously. Delayed whole-body scintigrams were o btained. COMPARISON: Chest CT 07/22/2022, bone scan 04/29/2022, CT abdomen and pelvis 01/28/22 FINDINGS: There are widespread foci of increased activity in the spine, pelvis, ribs, and proximal fe roth correlating with sclerotic lesions by CT, consistent with metastatic disease. IMPRESSION: 1. Widespread osseous metastatic disease, stable from 04/29/2022. Reviewed, dictated and finalized at location A.
== END 2022-07-22 08:32 | disposition home or self-care (01) ==
LOC: ANHIMG 08:32
PROVIDERS: PCP Physician Assistant; Visit Provider Internal Medicine Hematology & Oncology
DX: D05.11 Intraductal carcinoma in situ of right breast (principal); C79.51 Secondary malignant neoplasm of bone
CPT/HCPCS: 71260; 78306; A9503; Q9967

== ENCOUNTER 2022-07-24 12:21 | Outpatient (CLI) | payer MEDICARE, OTHER, SELFPAY ==
--- NOTE | 2022-07-24 13:00 | ECHO_ITS ---
Patient Info Name: Syeda Marks Age: 71 years : 1950 Gender: Female Ht: 64 in Wt: 190 lbs BSA: 2.01 m2 HR: 84 bpm BP: 147 / 71 mmHg Technical Quality: Fair Exam Date: 07/24/2022 1:16 PM Exam Location: [facility] Patient Status: Outpatient Admit Date: 07/24/2022 Staff Ordering Physician: Kiran Rivera MD [employer] Refuel[employer] Handler: Aliya Ponce RDCS Attending Provider: Kiran Rivera MD Referring Physician: Miguel HOWELL; Exam Type: CA echo doppler color flow Study Info Indications C50.911 - INVASIVE DUCTAL CARCINOMA OF BREAST, FEMALE, RIGHT Complete two-dimensional, color flow and Doppler transthoracic echocardiogram is performed. Summary 1. Complete two-dimensional, color flow and Doppler transthoracic echocardiogram is performed. 2. Left ventricular chamber dimension is normal. 3. Left ventricular systolic function is normal, estimated at 65-70%. 4. There is mild concentric increased left ventricular wall thickness. 5. The left ventricular diastolic function is grade I diastolic dysfunction. 6. E/e' 11 is mildly elevated. 7. There is mild aortic valve sclerosis. 8. No pulmonary hypertension, estimated pulmonary arterial systolic pressure is 12 mmHg. Left Ventricle E/e' 11 is mildly elevated. Left ventricular chamber dimension is normal. Left ventricular systolic function is normal, estimated at 65-70%. There is mild concentric increased left ventricular wall thickness. The left ventricular diastolic function is grade I diastolic dysfunction. Right Ventricle Right ventricular systolic function is normal and with normal TAPSE 2.3 cm. Right ventricular chamber dimension is normal. Left Atria Left atrial chamber dimension is normal. Right Atria Right atrial chamber dimension is normal. Aortic Valve The aortic valve is trileaflet. There is mild aortic valve sclerosis. There is no aortic valve stenosis. There is no aortic valve regurgitation. Pulmonic Valve There is no pulmonic regurgitation. Mitral Valve There is no mitral valve stenosis. There is no mitral valve regurgitation. Tricuspid Valve There is no tricuspid valve regurgitation. No pulmonary hypertension, estimated pulmonary arterial systolic pressure is 12 mmHg. Pericardium/Pleural There is no pericardial effusion. Inferior Vena Cava Normal inferior vena cava with >50% collapse upon inspiration consistent with normal right atrial pressure, 5 mmHg. Aorta The aortic root size at the sinus of Valsalva is normal. Left Ventricular Outflow Tract Name Value Normal LVOT 2D LVOT Diameter 1.7 cm LVOT Doppler LVOT Peak Gradient 4 mmHg LVOT Mean Gradient 1 mmHg LVOT VTI 19 cm LVOT VTI/AV VTI Ratio 0.7 LVOT Stroke Volume 44 ml LVOT CO 3.6 l/min LVOT CI 1.8 l/min/m2 Pulmonic Valve Name Value Normal RVOT Doppler --------
== END 2022-07-24 12:22 | disposition home or self-care (01) ==
LOC: ANHCARD 12:23
PROVIDERS: PCP Physician Assistant; Visit Provider Internal Medicine Hematology & Oncology
DX: C50.911 Malignant neoplasm of unspecified site of right female breast (principal); I35.8 Other nonrheumatic aortic valve disorders
CPT/HCPCS: 93306

== ENCOUNTER 2022-10-23 12:19 | Outpatient (CLI) | payer MEDICARE, OTHER, SELFPAY ==
--- NOTE | 2022-10-23 | ECHO_ITS ---
Patient Info Name: Syeda Marks Age: 71 years : 1950 Gender: Female Ht: 64 in Wt: 190 lbs BSA: 2.01 m2 HR: 97 bpm BP: 145 / 79 mmHg Heart Rhythm: Sinus Rhythm Technical Quality: Fair Exam Date: 10/23/2022 12:57 PM Exam Location: [facility] Patient Status: Outpatient Admit Date: 10/23/2022 Staff Ordering Physician: Kiran Rivera MD Real Time Operator: Selma Collins RDCS Attending Provider: Kiran Rivera MD Referring Physician: Miguel HOWELL; Exam Type: CA echo doppler color flow Study Info Indications - breast cancer Complete two-dimensional, color flow and Doppler transthoracic echocardiogram is performed. Strain analysis performed. Summary 1. Complete two-dimensional, color flow and Doppler transthoracic echocardiogram is performed. 2. Left ventricular chamber dimension is normal. 3. Left ventricular systolic function is normal, estimated at 65-70%. 4. The left ventricular diastolic function is grade I diastolic dysfunction. 5. E/e' 9 is minimally elevated. 6. Global longitudinal strain is normal at -18.0%. 7. There is trace tricuspid valve regurgitation. 8. No pulmonary hypertension, estimated pulmonary arterial systolic pressure is 26 mmHg. Left Ventricle E/e' 9 is minimally elevated. Global longitudinal strain is normal at -18.0%. Left ventricular chamber dimension is normal. Left ventricular systolic function is normal, estimated at 65-70%. The left ventricular diastolic function is grade I diastolic dysfunction. Right Ventricle Right ventricular systolic function is normal and with normal TAPSE 2.2 cm. Right ventricular chamber dimension is normal. Left Atria Left atrial chamber dimension is normal. Right Atria Right atrial chamber dimension is normal. Aortic Valve The aortic valve is trileaflet. There is no aortic valve stenosis. There is no aortic valve regurgitation. Pulmonic Valve There is no pulmonic regurgitation. Mitral Valve There is no mitral valve stenosis. There is no mitral valve regurgitation. Tricuspid Valve There is trace tricuspid valve regurgitation. No pulmonary hypertension, estimated pulmonary arterial systolic pressure is 26 mmHg. Pericardium/Pleural There is no pericardial effusion. Inferior Vena Cava Normal inferior vena cava with >50% collapse upon inspiration consistent with normal right atrial pressure, 5 mmHg. Aorta The aortic root size at the sinus of Valsalva is normal. Left Ventricular Outflow Tract Name Value Normal LVOT 2D LVOT Diameter 2.0 cm LVOT Doppler LVOT Peak Gradient 2 mmHg LVOT Mean Gradient 1 mmHg LVOT VTI 16 cm LVOT VTI/AV VTI Ratio 0.6 LVOT Stroke Volume 47 ml LVOT CO 3.8 l/min LVOT CI 1.9 l/min/m2 Pulmonic Valve Name Value Normal RVOT Doppler
== END 2022-10-23 12:20 | disposition home or self-care (01) ==
LOC: ANHCARD 12:22
PROVIDERS: PCP Physician Assistant; Visit Provider Internal Medicine Hematology & Oncology
DX: C50.911 Malignant neoplasm of unspecified site of right female breast (principal); Z13.6 Encounter for screening for cardiovascular disorders
CPT/HCPCS: 93306

== ENCOUNTER 2022-12-16 11:41 | Outpatient (CLI) | payer MEDICARE, OTHER, SELFPAY ==
--- NOTE | ~2022-12-16 | XR_ITS ---
EXAMINATION: XR mandible min 4V DATE: 12/16/2022 12:08 INDICATION: Mandibular pain. Soft tissue swelling below the chin. TECHNIQUE: 4 views of the mandible were obtained. COMPARISON: PET/CT 10/01/2021 FINDINGS: Bone alignment is normal. No fracture. There is mild osteoarthritis of the temporomandibula r joints. IMPRESSION: 1. Mild osteoarthritis of the temporomandibular joints. Reviewed, dictated and finalized at location E.
== END 2022-12-16 11:42 | disposition home or self-care (01) ==
LOC: ANHIMG 11:43
PROVIDERS: PCP Physician Assistant; Visit Provider Internal Medicine Hematology & Oncology
DX: R68.84 Jaw pain (principal)
CPT/HCPCS: 70110; 99212; G0463

== ENCOUNTER 2023-02-12 10:23 | Outpatient (CLI) | payer MEDICARE, OTHER, SELFPAY ==
--- NOTE | ~2023-02-12 | NM_ITS ---
EXAMINATION: NM bone scan whole body DATE: 02/12/2023 13:56 INDICATION: Cancer, metastatic to bone. TECHNIQUE: Modified 0.4 mCi Tc-99m HDP was administered intravenously. Delayed whole-body scintigram s were obtained. COMPARISON: Mandibular radiographs dated 12/16/2022, chest CT dated 07/22/[address] chest, abdomen a nd pelvis dated 01/28/2022 FINDINGS: Significant interval progression in prominent uptake extending diffusely cross the midline from the l eft mandibular body to the right mandibular body consistent with progression of likely metastatic dis ease which was indiscernible on the prior radiographs. There has also been progression of a small foc i of moderate uptake in the right supra-acetabular region at the L1 and L5 vertebral bodies. New focu s of mild uptake in the region of the right greater trochanter. There are a few additional unchanged small foci of mild uptake at the sternum, cervical and thoracic spine, right scapula and a few ribs. IMPRESSION: 1. Widespread osseous metastatic disease with progression of a few sites including at the mandible, l umbar spine, right supra-acetabular region and right greater trochanter. Reviewed, dictated and finalized at location A. WORKER IMPRESSION: 1. Widespread osseous metastatic disease with progression of a few sites includ ing at the mandible, lumbar spine, right supra-acetabular region and right grea ter trochanter.
== END 2023-02-12 10:24 | disposition home or self-care (01) ==
PROVIDERS: PCP Physician Assistant; Visit Provider Internal Medicine Hematology & Oncology
DX: C79.51 Secondary malignant neoplasm of bone (principal)
CPT/HCPCS: 78306; A9503

== ENCOUNTER 2023-02-16 10:59 | Inpatient (IN) | payer MEDICARE, OTHER, SELFPAY ==
[2023-02-16] VITALS (11 sets, daily range): BP systolic 129–161; BP diastolic 51–69; PULSE 105–114; RESP 15–19; TEMP 36.4; O2SAT 93–100
--- NOTE | ~2023-02-16 | CT_ITS ---
Non-contrast CT scan of the Abdomen and Pelvis Clinical indication: Diarrhea Technique: 2.5 mm axial scans were obtained through the abdomen and pelvis without intravenous or or al contrast. Dose reduction technique was used on this scan by utilizing automated exposure control a nd iterative reconstruction technique. The dose-length product (DLP) was 802.65 mGy-cm. COMPARISON: 01/28/2022 Findings: Images through the lung bases reveal 5 mm pleural-based right lower lobe pulmonary nodule, unchanged. Several calcified granulomas are present.. The liver, right kidney, pancreas, gallbladder, and adrenals appear normal. 2 mm non-obstructing left renal stone noted. There is no aortic aneurysm. There is no evidence of bowel obstruction. Stable irregular central mesenteric mass with coarse calci fication, measuring approximately 2.8 cm in maximum diameter. Images through the pelvis were performed. There is no evidence of ascites or lymphadenopathy. Large u terine fibroids are present, many which are densely calcified. Urinary bladder unremarkable. There is extensive, predominantly sclerotic osseous metastatic disease at the visualized skeleton. St able mild compression deformities in the spine noted. Impression: Stable 2.8 cm irregular, partially calcified central mesenteric mass, suspicious for carcinoid. Stable extensive osseous metastatic disease with several mild compression fractures. Large uterine fibroids, many which are densely calcified. 2 mm nonobstructing left renal stone. Stable 5 mm right lower lobe pulmonary nodule. Reviewed, dictated and finalized at [facility]. [facility] [place] Impression: Stable 2.8 cm irregular, partially calcified central mesenteric mass, suspiciou s for carcinoid. Stable extensive osseous metastatic disease with several mild compression fract ures. Large uterine fibroids, many which are densely calcified. 2 mm nonobstructing left renal stone. Stable 5 mm right lower lobe pulmonary nodule.
[2023-02-16 12:26] LABS: Eosinophils Percent Auto 0.3 % (0-4.4); Hematocrit 31.3 % (37.0-47.0); Hemoglobin 9.8 g/dL (12.0-15.0); Immature Granulocyte Absolute 0.12 K/mm3 (0.00-0.031); Immature Granulocyte Percent A 1.9 % (0-0.5); Lymphocytes Absolute Auto 0.52 K/mm3 (0.9-3.2); Lymphocytes Percent Auto 8.3 % (18.3-44.2); Mean Corpuscular HGB Conc 31.3 g/dl (32-36); Mean Corpuscular Volume 92.6 fl (80-100); Mean Platelet Volume 8.5 fl (7.4-10.4); Monocytes Absolute Auto 0.4 K/mm3 (0.1-0.6); Monocytes Percent Auto 5.8 % (2.6-8.5); Neutrophils Absolute Auto 5.2 K/mm3 (1.3-6.7); Neutrophils Percent Auto 83.7 % (45.5-73.1); Platelet Count Result 278 k/mm3 (150-375); Red Blood Count 3.38 M/mm3 (4.2-5.4); Red Cell Distribution Width 14.5 % (11.5-14.5); White Blood Count 6.2 K/mm3 (4.5-10.0)
[2023-02-16 12:37] LABS: Alanine Aminotransferase 23 U/L (6-35); Albumin Level 4.3 g/dL (3.5-5.1); Alkaline Phosphatase 76 U/L (38-126); Anion Gap 14 mmol/L (8-16); Aspartate Amino Transferase 31 U/L (14-36); Bilirubin,Total 0.4 mg/dL (0.2-1.3); Blood Urea Nitrogen 57 mg/dL (7-17); Calcium 10.4 mg/dL (8.4-10.2); Carbon Dioxide 14 mmol/L (22-30); Chloride 108 mmol/L (98-107); Estimated CRCL calculation 19 ml/min; Estimated Glomerular Filt Rate 19; Glucose 135 mg/dL (65-110); Lipase 45 U/L (23-300); Potassium 5.6 mmol/L (3.4-5.0); Sodium 136 mmol/L (137-145)
[2023-02-16] MEDS: SODIUM CHLORIDE 0.9% IV 1,000 ML 999 ML IV CONT ×2 (12:53→14:31)
[2023-02-16] MEDS: FAMOTIDINE 20 MG/2 ML VIAL IV PUSH (12:54)
[2023-02-16] MEDS: ONDANSETRON INJ 4 MG/2 ML VIAL IV PUSH (12:54)
--- NOTE | 2023-02-16 14:08 | ED.NAVMDI ---
HPI - Nausea/Vomiting/Diarrhea General Chief complaint: Nausea/Vomiting/Diarrhea Stated complaint: diarrhea Time Seen by Provider: 02/16/23 12:11 History of Present Illness HPI Narrative: patient presents the emergency department with her spouse. She has history of breast cancer. For the past 3 weeks she has had persistent diarrhea. she has had 5-15 episodes of diarrhea a day. Denies nausea and vomiting. Denies decreased appetite. Denies blood in her stool. She states that every time she eats she has no episode of diarrhea. Denies fevers and chills. Normally the Imodium and the other medications at her oncologist prescribed results for diarrhea however this time they have not. She has stopped all supplements anything with magnesium But nothing has helped. Related Data Home Medications Medication Instructions Recorded Confirmed ascorbic acid (vitamin C) 500 mg 500 mg PO DAILY 12/17/18 02/13/23 tablet famotidine 20 mg tablet 20 mg PO DAILY PRN Dyspepsia 12/17/18 02/13/23 multivitamin 1 tablet PO DAILY 12/17/18 02/13/23 diphenoxylate-atropine 2.5 1 tablet PO QID PRN diarrhea 07/20/19 02/13/23 mg-0.025 mg tablet (Lomotil) acetaminophen 500 mg capsule 500 mg PO Q6H PRN Pain 10/07/21 02/13/23 calcium carbonate 600 mg-vitamin 1 tablet PO BID 10/07/21 02/13/23 D3 10 mcg (400 unit) tablet (Calcium 600 + D(3)) ferrous sulfate 325 mg (65 mg 325 mg PO DAILY 10/07/21 02/13/23 iron) tablet letrozole 2.5 mg tablet 2.5 mg PO DAILY 10/07/21 02/13/23 lapatinib 250 mg tablet 1,000 mg PO DAILY 11/19/21 02/13/23 Allergies Allergy/AdvReac Type Severity Reaction Status Date / Time No Known Allergies Allergy Verified 02/13/23 11:31 Review of Systems Review of Systems: negative except what is documented in the HPI [facility] Past Medical History Medical History Anemia GERD (gastroesophageal reflux disease) History of breast cancer HTN (hypertension) Surgical History Surgical History Hx of appendectomy Family History Family History Mother Patient's mother is Father Cerebrovascular accident Social History Social History Smoking status: Never smoker Second hand tobacco smoke exposure: No Alcohol intake: current Drinks per week: 1 Substance use: never Lack of Transportation: No Lack of Food: Never True Current Housing: I Have Housing Concerned About Future Housing: No Difficulty Paying Gas/Electric Bills: No Difficulty Paying for Meds: No Currently Unemployed: No Education: Associate Degree Difficulty w/ Childcare or Family Care: No Living arrangements: with family Additional living arrangements comments: HUSB Spiritual care concerns: No Exam Narrative: GENERAL: Well-appearing, well-nourished, and in no acute distress. HEAD: Normocephalic, atraumatic. EYES: PERRLA and EOMI. ENT: Nares clear, no rhinorrhea or epistaxis. Mucous membranes moist. NECK: Supple. CHEST: Clear to auscultation. No respiratory distress. HEART: Regular rate and rhythm. ABDOMEN: Soft, nontender, nondistended. EXTREMITIES: Normal range of motion. No edema. SKIN: Warm, dry, no rash. NEURO: No focal deficits. Alert and oriented x3. PSYCH: Normal mood and affect. Course Course Emergency Course: differential diagnosis includes but not limited to colitis, idiopathic diarrhea labs and CT ordered. patient is tachycardic, IV fluids ordered Vital Signs Vital signs: Vital Signs Temperature 36.4 C 02/16/23 11:01 Pulse Rate 114 H 02/16/23 11:01 Respiratory Rate 18 02/16/23 11:01 Blood Pressure 161/69 H 02/16/23 11:01 Pulse Oximetry 100 02/16/23 11:01 Oxygen Delivery Room Air 02/16/23 11:01 Temperature
--- NOTE | 2023-02-16 14:12 | ECG_ITS ---
Measurements Intervals [place] Rate: 103 P: 37 WI: 152 QRS: 20 QRSD: 90 T: 11 QT: 325 QTc: 426 Interpretive Statements SINUS TACHYCARDIA LOW-VOLTAGE QRS IN PRECORDIAL LEADS BORDERLINE ECG COMPARED TO ECG 03/22/2019 09:46:01 SINUS TACHYCARDIA NOW PRESENT Electronically Signed On 02-16-2023 17:26:19 [employer]CESSION CASHIER by Francisco Mock M.D.
[2023-02-16 14:56] LABS: Appearance Urine Clear (Clear); Bilirubin Urine Negative (Negative); Blood Urine Negative (Negative); Color Urine Yellow (Yellow); Glucose Urine UA Negative (Negative); Ketones Urine Negative (Negative); Leukocyte Esterase Ur Negative LEU/UL (Negative); Nitrate Urine Negative (Negative); Protein Urine Negative (Negative); Specific Grav Ur 1.008 (1.001-1.035); Urobilinogen Urine 0.2 mg/dL (<2.0)
[2023-02-16 15:16] LABS: Add Urine Microscopic? NO; Lactic Acid Reflex 1.7 mmol/L (0.7-2.0)
--- NOTE | 2023-02-16 20:05 | PM.IMHP ---
H&P: HPI History of Present Illness Date/Time: 02/16/23 18:30 Chief Complaint: Diarrhea. Narrative: This is a very pleasant 72-year-old female with right breast cancer diagnosed with widespread osseous metastatic disease in December 2021 who presented to the emergency department via private vehicle from home for evaluation of diarrhea. The patient provides the following history. About a month ago she started having daily episodes of diarrhea and eventually got under control with Lomotil and other prescription medication that she was given by Dr. Rivera (it was thought that her chemotherapy agents were the cause of the diarrhea). Unfortunate within the last 3 to 4 days or so the diarrhea has returned and she is going between 5 to 10 times a day. She describes dark, watery diarrhea (she is on iron supplementation and her urine stool is always dark) and she has not noticed any bright red blood or mucus in the stool. She does not have any abdominal discomfort with that. It does seem to slow down somewhat with and not eating. She has tried to cut back on her magnesium but is now on supplementation as her magnesium stores are low. She denies fever, chills, and sweats. No recent antibiotic use. No recent travel. No sick contacts. She was afebrile on arrival with stable blood pressures. Labs were significant for acute on chronic kidney injury and multiple electrolyte abnormalities including a sodium of 136, potassium 5.6, chloride 108, carbon dioxide 14, calcium 10.4. She received 2 L IV fluid in the ED and she is being admitted in this setting for further hydration and close monitoring of electrolytes. Review of Systems Review of Systems: Twelve systems were reviewed and are negative except for as per HPI. [facility] Past Medical History Medical History (Updated 02/16/23 @ 22:21 by Ginna García PA-C) Anemia Breast cancer metastasized to bone GERD (gastroesophageal reflux disease) History of breast cancer HTN (hypertension) Surgical History Surgical History (Updated 02/16/23 @ 22:18 by Ginna García PA-C) History of lumpectomy Hx of appendectomy Family History Family History Mother Patient's mother is Father Cerebrovascular accident Social History Social History (Updated 02/16/23 @ 22:18 by Ginna G Gerling, PA-C) Social History: Surrogate medical decision maker: Moe Marks, spouse. Code status: full code. Smoking status: Never smoker Second hand tobacco smoke exposure: No Alcohol intake: current Drinks per week: 1 Substance use: never Lack of Transportation: No Lack of Food: Never True Current Housing: I Have Housing Concerned About Future Housing: No Difficulty Paying Gas/Electric Bills: No Difficulty Paying for Meds: No Currently Unemployed: No Education: Associate Degree Difficulty w/ Childcare or Family Care: No Living arrangements: with family Additional living arrangements comments: Lives with in [place]. They have 1 child. Spiritual care concerns: No Meds Home Medications and Allergies Home Medications Medication Instructions Recorded Confirmed Type ascorbic acid (vitamin C) 500 mg 500 mg PO DAILY 12/17/18 02/16/23 History tablet famotidine 20 mg tablet 20 mg PO DAILY PRN Dyspepsia 12/17/18 02/16/23 History multivitamin 1 tablet PO DAILY 12/17/18 02/16/23 History diphenoxylate-atropine 2.5 1 tablet PO QID PRN diarrhea 07/20/19 02/16/23 History mg-0.025 mg tablet (Lomotil) acetaminophen 500 mg capsule 500 mg PO Q6H PRN Pain 10/07/21 02/16/23 History ferrous sulfate 325 mg (65 mg 325 mg PO DAILY 10/07/21 02/16/23 History iron) tablet letrozole 2.5 mg tablet 2.5 mg PO DAILY 10/07/21 02/16/23 History lapatinib 250 mg tablet 1,000 mg PO DAILY 11/19/21 02/16/23 History lisinopril 20 mg tablet 20 mg PO QAM 02/16/23 02/16/23 History Allergies A
[2023-02-16 20:53] LABS: Anion Gap 11 mmol/L (8-16); Blood Urea Nitrogen 43 mg/dL (7-17); Calcium 9.2 mg/dL (8.4-10.2); Carbon Dioxide 12 mmol/L (22-30); Chloride 115 mmol/L (98-107); Estimated CRCL calculation 28 ml/min; Estimated Glomerular Filt Rate 30; Glucose 101 mg/dL (65-110); Magnesium 1.5 mg/dL (1.6-2.3); Potassium 4.9 mmol/L (3.4-5.0); Sodium 138 mmol/L (137-145)
[2023-02-16 22:11] LABS: Free T4 Free Thyroxine Reflex 1.48 ng/dL (0.78-2.19)
[2023-02-16] MEDS: MAGNESIUM SULF 1 GM/D5W 100 ML 1 GM/100 ML BAG IVPB (22:16)
[2023-02-16] MEDS: HYDROcodone/acetaminophen (*CRX) 5-325 MG TABLET 1 TAB PO (22:19)
[2023-02-16 22:50] LABS: Total Triiodothyronine (T3) 0.95 NG/ML (0.97-1.69)
[2023-02-16] MEDS: LACTATED RINGERS 1,000 ML 100 ML IV CONT (23:37)
[2023-02-17] VITALS (10 sets, daily range): BP systolic 130–147; BP diastolic 61–91; PULSE 86–115; RESP 14–20; TEMP 36.3–37.2; O2SAT 96–100; BMI 30.4
[2023-02-17] MEDS: SODIUM BICARBONATE 8.4% 150 MEQ in DEXTROSE 5% 1,000 ML 950 ML IV CONT (01:51)
[2023-02-17] MEDS: DIPHENOXYLATE/ATROPINE (*CRX) 2.5 MG TABLET 1 TABLET PO ×2 (07:36→20:06)
--- NOTE | 2023-02-17 07:41 | PC.NURSE ---
pt reports diarrhea requested lomotil, med given, breakfast ordered
--- NOTE | 2023-02-17 08:20 | PC.NURSE ---
waiting for medications to come from pharmacy
[2023-02-17 08:34] LABS: Eosinophils Percent Auto 0.5 % (0-4.4); Hematocrit 26.4 % (37.0-47.0); Hemoglobin 8.7 g/dL (12.0-15.0); Immature Granulocyte Percent A 1.7 % (0-0.5); Lymphocytes Absolute Auto 0.55 K/mm3 (0.9-3.2); Lymphocytes Percent Auto 9.5 % (18.3-44.2); Mean Corpuscular Hemoglobin 29.5 pg (26-34); Mean Corpuscular Volume 89.5 fl (80-100); Monocytes Absolute Auto 0.4 K/mm3 (0.1-0.6); Monocytes Percent Auto 6.9 % (2.6-8.5); Neutrophils Absolute Auto 4.7 K/mm3 (1.3-6.7); Neutrophils Percent Auto 81.4 % (45.5-73.1); Platelet Count Result 249 k/mm3 (150-375); Red Blood Count 2.95 M/mm3 (4.2-5.4); Red Cell Distribution Width 14.3 % (11.5-14.5); White Blood Count 5.8 K/mm3 (4.5-10.0)
[2023-02-17 08:48] LABS: Alanine Aminotransferase 19 U/L (6-35); Albumin Level 3.9 g/dL (3.5-5.1); Alkaline Phosphatase 68 U/L (38-126); Anion Gap 7 mmol/L (8-16); Aspartate Amino Transferase 31 U/L (14-36); Bilirubin,Total 0.3 mg/dL (0.2-1.3); Blood Urea Nitrogen 31 mg/dL (7-17); Calcium 8.9 mg/dL (8.4-10.2); Carbon Dioxide 19 mmol/L (22-30); Chloride 111 mmol/L (98-107); Estimated CRCL calculation 39 ml/min; Estimated Glomerular Filt Rate 44; Glucose 142 mg/dL (65-110); Magnesium 1.7 mg/dL (1.6-2.3); Potassium 4.7 mmol/L (3.4-5.0); Sodium 137 mmol/L (137-145)
[2023-02-17] MEDS: MULTIVITAMINS THERAPEUTIC TAB (*BKC) 1 TABLET PO (08:57)
[2023-02-17] MEDS: FAMOTIDINE 20 MG TABLET PO (08:57)
[2023-02-17] MEDS: LETROZOLE (*CHEMO) 2.5 MG TABLET PO (08:58)
[2023-02-17] MEDS: ASCORBIC ACID 500 MG TABLET PO (08:58)
[2023-02-17] MEDS: ENOXAPARIN 40 MG/0.4 ML SYRINGE SUB-Q (08:59)
--- NOTE | 2023-02-17 09:15 | PC.NURSE ---
iron supplement did not come fro pharmacy with other daily meds. Pharmacy notified and Ericka on 3med/surg notified
--- NOTE | 2023-02-17 09:20 | ADMGEN ---
This patient, Syeda Marsk, was admitted to [facility] Surg Room 332-01. Patient/family oriented to hospital policies and general routines including ID bracelet, bed and alarms, visiting hours, pain management, procedures, bathroom and other care routines, personal items, smoking policy, room service/diet, and visiting hours. Information on how to activate the Rapid Response Team has been discussed. Patient/Family are encouraged to report perceived risks to care and to ask questions if they do not understand what they are told or what they should do.
[2023-02-17] MEDS: FERROUS SULFATE 325 MG TABLET DR PO (11:05)
[2023-02-17] MEDS: LACTATED RINGERS 1,000 ML 100 ML IV CONT ×2 (11:05→21:32)
--- NOTE | 2023-02-17 12:44 | PM.IMPN ---
Progress Note: A&P Assessment and Plan (1) Acute on chronic kidney failure: Code(s): N17.9 - Acute kidney failure, unspecified; N18.9 - Chronic kidney disease, unspecified Status: Acute Assessment and Plan: Likely dehydration related due to consistent diarrhea. Status post IV fluid bolus and maintenance. (2) Electrolyte abnormality: Code(s): E87.8 - Other disorders of electrolyte and fluid balance, not elsewhere classified Status: Acute Assessment and Plan: 02/17: Mild hypo magnesemia improved after repletion in the emergency department. Potassium is on the high side of normal at 4.7 today. IZAIAH improved. (3) Dehydration: Code(s): E86.0 - Dehydration Status: Acute Assessment and Plan: See 1. (4) Diarrhea: Qualifiers: Diarrhea type: unspecified type Qualified Code(s): R19.7 - Diarrhea, unspecified Code(s): R19.7 - Diarrhea, unspecified Status: Acute Assessment and Plan: Continue loperamide and Lomotil p.r.n.. Dr. Rivera has stopped one of her chemo medications. (5) Chronic anemia: Code(s): D64.9 - Anemia, unspecified Status: Acute Assessment and Plan: Chronic, Dr. Rivera on board (6) Breast cancer metastasized to bone: Code(s): C50.919 - Malignant neoplasm of unspecified site of unspecified female breast; C79.51 - Secondary malignant neoplasm of bone Status: Acute Assessment and Plan: Acute area chin per patient that is swollen and tender Time Spent With Patient Time with patient: 25 - 35 minutes Subjective Date/time seen: 02/17/23 12:44 Interval history: 02/16 H&P: This is a very pleasant 72-year-old female with right breast cancer diagnosed with widespread osseous metastatic disease in December 2021 who presented to the emergency department via private vehicle from home for evaluation of diarrhea. The patient provides the following history. About a month ago she started having daily episodes of diarrhea and eventually got under control with Lomotil and other prescription medication that she was given by Dr. Rivera (it was thought that her chemotherapy agents were the cause of the diarrhea). Unfortunate within the last 3 to 4 days or so the diarrhea has returned and she is going between 5 to 10 times a day. She describes dark, watery diarrhea (she is on iron supplementation and her urine stool is always dark) and she has not noticed any bright red blood or mucus in the stool. She does not have any abdominal discomfort with that. It does seem to slow down somewhat with and not eating. She has tried to cut back on her magnesium but is now on supplementation as her magnesium stores are low. She denies fever, chills, and sweats. No recent antibiotic use. No recent travel. No sick contacts. She was afebrile on arrival with stable blood pressures. Labs were significant for acute on chronic kidney injury and multiple electrolyte abnormalities including a sodium of 136, potassium 5.6, chloride 108, carbon dioxide 14, calcium 10.4. She received 2 L IV fluid in the ED and she is being admitted in this setting for further hydration and close monitoring of electrolytes. 02/17: Dr. Rivera saw patient and stopped a chemo medication that is likely cause of diarrhea. IV fluids will continue. Patient already asking if she can go home tomorrow. She did not eat lunch today, states that when she eats it causes diarrhea so she is not eating much. I explained that we would want her symptoms better and her to eat before discharge. Review of Systems Review of Systems: Twelve systems were reviewed and are negative except for as per HPI. Exam Narrative: General: Chronically ill, nontoxic-appearing female sitting up in bed. HEENT: PERRL, EOMI. Sclera anicteric. Tacky mucous membranes. Gums are erythematous with shallow ulcerations. Neck: Supple. There is in approximately 2 to 2.5 cm area of fluctuance under the
--- NOTE | 2023-02-17 14:02 | PHAR ---
The patient's home med of LAPATINIB 250MG has been verified.
--- NOTE | 2023-02-17 18:13 | PDONCCN ---
[facility] - Date of Consult Date/Time: 02/17/23 18:13 Requesting Physician: Dre Russell MD Primary Care Provider: Sid Barrios PA-C - Consult Narrative Reason for consult: Metastatic breast cancer Narrative: Syeda Marks is a 72 year old female with diagnosis of metastatic breast cancer currently on treatment with letrozole, Herceptin and lapatinib since October 2021. Patient was seen in the office on February 09. She was concerned about worsening of the chin pain. She bone scan was ordered that showed metastatic involvement of the mandible. She got admitted to the hospital with diarrhea profound nature. Denies any melena hematochezia. No fevers and chills. She was complaining of abdominal discomfort. Labs showed mild anemia with hemoglobin of 8.7. BUN was elevated as well as creatinine was elevated. CT scan of abdomen and pelvis showed 2.8 cm central mesenteric mass concerning for carcinoid as well as stable bone metastasis. There was 5 mm right lower lobe pulmonary nodule. She denies any other complaints. Review of Systems - Review of Systems All systems reviewed & are unremarkable except as noted in HPI and [facility] Medical History: Medical History (Last Updated 02/16/23 @ 22:18 by Ginna García PA-C) Anemia Breast cancer metastasized to bone GERD (gastroesophageal reflux disease) History of breast cancer HTN (hypertension) Surgical History: Surgical History (Last Updated 02/16/23 @ 22:18 by Ginna García PA-C) History of lumpectomy Hx of appendectomy Family History: Family History (Last Reviewed 02/16/23 @ 22:18 by Ginna García PA-C) Mother Patient's mother is Father Cerebrovascular accident - Social History Social History: Social History (Last Updated 02/16/23 @ 22:18 by Ginna García PA-C) Alcohol Use: Alcohol intake: never Drinks per week: 1 Substance Use: Substance use: never Others: Spiritual care concerns: No Living Arrangements: Living arrangements: with family Smoking Status: Smoking status: Never smoker Second hand tobacco smoke exposure: No Social Determinants of Health: Has the Lack of Transportation Kept You From Medical Appointments or From Getting Medications?: No Within the Past 12 Months, Were You Worried Whether Your Food Would Run Out Before You Got Money to Buy More?: Never True What is Your Housing Situation Today?: I Have Housing Are You Worried That in the Next 2 Months, You May Not Have Your Own Housing to Live In?: No Do You Have Trouble Paying Your Heating Or Electricity Bill?: No Do You Have Trouble Paying For Medicines?: No Are You Currently Unemployed and Looking for Work?: No Highest Level of Education Completed: Decline to Answer Do You Have Trouble With Childcare or the Care of a Family Member?: No Exam - Vital Signs Vital Signs - 24 hr 02/16/23 19:29 02/16/23 22:49 02/17/23 01:52 Temperature Pulse Rate 111 H 105 H 103 H Respiratory Rate 15 19 15 Blood Pressure 134/63 133/63 131/64 Pulse Oximetry 97 97 99 02/17/23 05:22 02/17/23 05:24 02/17/23 05:26 Temperature 36.9 C Pulse Rate 90 100 102 H Respiratory Rate 14 Blood Pressure 142/65 H 135/61 146/91 H Pulse Oximetry 100 02/17/23 05:27 02/17/23 06:42 02/17/23 08:00 Temperature 36.4 C Pulse Rate 101 H 86 108 H Respiratory Rate 15 16 Blood Pressure 130/70 130/71 139/71 Pulse Oximetry 96 97 02/17/23 09:20 02/17/23 14:00 Temperature 37.2 C 36.3 C L Pulse Rate 115 H 106 H Respiratory Rate 18 14 Blood Pressure 142/72 H 135/69 Pulse Oximetry 98 98 - Exam HEENT: EOMI, PERRLA, mucous membranes moist and pink, nares patent Neck: supple Lungs: clear to auscultation, normal air movement Heart: no murmurs, gallops, or rubs, regular rhythm, regular rate Abdomen: abdomen soft, non-distended, normal bowel sounds Extr
[2023-02-17] MEDS: HYDROcodone/acetaminophen (*CRX) 5-325 MG TABLET 1 TAB PO (21:32)
[2023-02-18] MEDS: LACTATED RINGERS 1,000 ML 100 ML IV CONT (05:45)
[2023-02-18 06:00] VITALS: BP 131/79; PULSE 106; RESP 18; TEMP 36.4; O2SAT 97
[2023-02-18 06:21] LABS: Basophils Percent Auto 0.3 % (0.2-1.2); Eosinophils Percent Auto 0.4 % (0-4.4); Hemoglobin 8.2 g/dL (12.0-15.0); Immature Granulocyte Absolute 0.18 K/mm3 (0.00-0.031); Immature Granulocyte Percent A 2.5 % (0-0.5); Lymphocytes Absolute Auto 0.62 K/mm3 (0.9-3.2); Lymphocytes Percent Auto 8.8 % (18.3-44.2); Mean Corpuscular HGB Conc 31.5 g/dl (32-36); Mean Corpuscular Hemoglobin 29.6 pg (26-34); Mean Corpuscular Volume 93.9 fl (80-100); Mean Platelet Volume 8.6 fl (7.4-10.4); Monocytes Absolute Auto 0.6 K/mm3 (0.1-0.6); Monocytes Percent Auto 8.3 % (2.6-8.5); Neutrophils Absolute Auto 5.6 K/mm3 (1.3-6.7); Neutrophils Percent Auto 79.7 % (45.5-73.1); Platelet Count Result 248 k/mm3 (150-375); Red Blood Count 2.77 M/mm3 (4.2-5.4); Red Cell Distribution Width 14.3 % (11.5-14.5); White Blood Count 7.1 K/mm3 (4.5-10.0)
[2023-02-18 06:29] LABS: Alanine Aminotransferase 17 U/L (6-35); Albumin Level 3.4 g/dL (3.5-5.1); Alkaline Phosphatase 55 U/L (38-126); Anion Gap 9 mmol/L (8-16); Aspartate Amino Transferase 31 U/L (14-36); Bilirubin,Total 0.5 mg/dL (0.2-1.3); Blood Urea Nitrogen 21 mg/dL (7-17); Calcium 8.3 mg/dL (8.4-10.2); Carbon Dioxide 17 mmol/L (22-30); Chloride 110 mmol/L (98-107); Estimated CRCL calculation 52 ml/min; Estimated Glomerular Filt Rate > 60; Glucose 96 mg/dL (65-110); Magnesium 1.6 mg/dL (1.6-2.3); Potassium 4.4 mmol/L (3.4-5.0); Sodium 136 mmol/L (137-145)
--- NOTE | 2023-02-18 07:44 | PM.DS ---
DS: Summary Time Spent with Patient Time attestation: Total time spent providing and/or coordinating discharge services: DS: Data Data Completed and Pending Labs on day of discharge: Labs from last 24 hours 02/18/23 02/17/23 02/17/23 05:44 19:53 08:22 WBC 7.1 5.8 RBC 2.77 L 2.95 L Hgb 8.2 L 8.7 L Hct 26.0 L 26.4 L MCV 93.9 89.5 MCH 29.6 29.5 MCHC 31.5 L 33.0 RDW 14.3 14.3 Plt Count 248 249 MPV 8.6 8.0 Immature Gran % (Auto) 2.5 H 1.7 H Neut % (Auto) 79.7 H 81.4 H Lymph % (Auto) 8.8 L 9.5 L Rhea % (Auto) 8.3 6.9 Eos % (Auto) 0.4 0.5 Baso % (Auto) 0.3 0.0 L Lymph # (Auto) 0.62 L 0.55 L Rhea # (Auto) 0.6 0.4 Eos # (Auto) 0.0 0.0 Baso # (Auto) 0.0 0.0 Abs Immat Gran (auto) 0.18 H 0.10 H Absolute Neuts (auto) 5.6 4.7 Absolute Nucleated RBC 0.0 0.0 Nucleated RBC % 0.0 0.0 Sodium 136 L 137 Potassium 4.4 4.7 Chloride 110 H 111 H Carbon Dioxide 17 L 19 L Anion Gap 9 7 L BUN 21 H D 31 H D Creatinine 0.90 1.20 H Estim Creat Clear Calc 52 39 Estimated GFR > 60 44 L Glucose 96 142 H Calcium 8.3 L 8.9 Magnesium 1.6 1.7 Total Bilirubin 0.5 0.3 AST 31 31 ALT 17 19 Alkaline Phosphatase 55 68 Total Protein 6.0 L 7.0 Albumin 3.4 L 3.9 Serotonin Pending Chromogranin A Pending Discharge Plan Discharge Attending physician on discharge: Wolfgang Alarcon Consulting providers: Kiran Rivera Discharging Clinician: Inder Alejandra Anticipated Discharge Date/Time: 02/18/23 13:00 Patient Disposition: Home, Self-Care Activity: as tolerated Diet: as tolerated Discharge Instructions: Follow up with Radiation Oncology due to jaw metastasis. Please hold lapatinib until restarted by Oncology Call your primary care provider to schedule an office visit for post hospitalization evaluation. Return to the ER or call 911 if you experience high fever, difficulty breathing or new/worsening symptoms of concern. Thank you for [facility]. We hope you were pleased with your care. Patient Instructions: Antibiotic Form, Acute Diarrhea (ED), Nutrition Tips for Relief of Diarrhea (DC) Stand Alone Forms: General Discharge Information Follow-up/Referrals: Kiran Rivera MD [Physician] - Call for Appointment Discharge Medications: Continued multivitamin Tablet 1 tablet PO DAILY famotidine 20 mg Tablet 20 mg PO DAILY PRN (Reason: Dyspepsia) ascorbic acid (vitamin C) 500 mg Tablet 500 mg PO DAILY diphenoxylate-atropine [Lomotil] 2.5-0.025 mg tablet 1 tablet PO QID PRN (Reason: diarrhea) lisinopril 20 mg tablet 20 mg PO QAM letrozole 2.5 mg tablet 2.5 mg PO DAILY ferrous sulfate 325 mg (65 mg iron) Tablet 325 mg PO DAILY acetaminophen 500 mg Capsule 500 mg PO Q6H PRN (Reason: Pain) Held lapatinib 250 mg Tablet 1,000 mg PO DAILY Hold Instructions: Resume on 03/09/23. Hold until restarted by Oncology Rx Instructions: must administer on empty stomach, at least 1 hour before or 1 hour after a meal/food Date of admission: 02/17/23 08:19 Primary Care Provider: Sid Barrios Admitting Provider: Dre Russell Attending physician on admission: Dre Russell Condition: Stable
[2023-02-18 08:00] VITALS: O2SAT 97
[2023-02-18] MEDS: ASCORBIC ACID 500 MG TABLET PO (08:06)
[2023-02-18] MEDS: FERROUS SULFATE 325 MG TABLET DR PO (08:06)
[2023-02-18] MEDS: ENOXAPARIN 40 MG/0.4 ML SYRINGE SUB-Q (08:07)
[2023-02-18] MEDS: LETROZOLE (*CHEMO) 2.5 MG TABLET PO (08:07)
[2023-02-18] MEDS: MULTIVITAMINS THERAPEUTIC TAB (*BKC) 1 TABLET PO (08:07)
--- NOTE | 2023-02-18 09:48 | PM.IMPN ---
Progress Note: A&P Assessment and Plan (1) Acute on chronic kidney failure: Code(s): N17.9 - Acute kidney failure, unspecified; N18.9 - Chronic kidney disease, unspecified Status: Acute Assessment and Plan: Likely dehydration related due to consistent diarrhea. Status post IV fluid bolus and maintenance. 02/18: Labs improved, IZAIAH resolved (2) Electrolyte abnormality: Code(s): E87.8 - Other disorders of electrolyte and fluid balance, not elsewhere classified Status: Acute Assessment and Plan: 02/17: Mild hypo magnesemia improved after repletion in the emergency department. Potassium is on the high side of normal at 4.7 today. IZAIAH improved. 02/18: IZAIAH improved, magnesium and potassium also improved (3) Dehydration: Code(s): E86.0 - Dehydration Status: Acute Assessment and Plan: See 1. (4) Diarrhea: Qualifiers: Diarrhea type: unspecified type Qualified Code(s): R19.7 - Diarrhea, unspecified Code(s): R19.7 - Diarrhea, unspecified Status: Acute Assessment and Plan: Continue loperamide and Lomotil p.r.n.. Dr. Rivera has stopped one of her chemo medications. (5) Chronic anemia: Code(s): D64.9 - Anemia, unspecified Status: Acute Assessment and Plan: Chronic, Dr. Rivera on board (6) Breast cancer metastasized to bone: Code(s): C50.919 - Malignant neoplasm of unspecified site of unspecified female breast; C79.51 - Secondary malignant neoplasm of bone Status: Acute Assessment and Plan: Acute area chin per patient that is swollen and tender, Radiation Oncology on discharge Plan Increase PO intake then DC IV fluids. Discharge possible tomorrow. Time Spent With Patient Time with patient: 25 - 35 minutes Subjective Date/time seen: 02/18/23 09:48 Interval history: 02/16 H&P: This is a very pleasant 72-year-old female with right breast cancer diagnosed with widespread osseous metastatic disease in December 2021 who presented to the emergency department via private vehicle from home for evaluation of diarrhea. The patient provides the following history. About a month ago she started having daily episodes of diarrhea and eventually got under control with Lomotil and other prescription medication that she was given by Dr. Rivera (it was thought that her chemotherapy agents were the cause of the diarrhea). Unfortunate within the last 3 to 4 days or so the diarrhea has returned and she is going between 5 to 10 times a day. She describes dark, watery diarrhea (she is on iron supplementation and her urine stool is always dark) and she has not noticed any bright red blood or mucus in the stool. She does not have any abdominal discomfort with that. It does seem to slow down somewhat with and not eating. She has tried to cut back on her magnesium but is now on supplementation as her magnesium stores are low. She denies fever, chills, and sweats. No recent antibiotic use. No recent travel. No sick contacts. She was afebrile on arrival with stable blood pressures. Labs were significant for acute on chronic kidney injury and multiple electrolyte abnormalities including a sodium of 136, potassium 5.6, chloride 108, carbon dioxide 14, calcium 10.4. She received 2 L IV fluid in the ED and she is being admitted in this setting for further hydration and close monitoring of electrolytes. 02/17: Dr. Rivera saw patient and stopped a chemo medication that is likely cause of diarrhea. IV fluids will continue. Patient already asking if she can go home tomorrow. She did not eat lunch today, states that when she eats it causes diarrhea so she is not eating much. I explained that we would want her symptoms better and her to eat before discharge. 02/18: Patient still having significant decreased appetite this morning. Loose stools improving some but fecal incontinence did occur. Patient reports significant exhaustion from such frequent diarrhe
[2023-02-18] MEDS: DIPHENOXYLATE/ATROPINE (*CRX) 2.5 MG TABLET 1 TABLET PO ×2 (10:21→18:45)
[2023-02-18 11:37] LABS: Toxigenic C. Diff NEGATIVE (NEGATIVE)
[2023-02-18 14:00] VITALS: BP 134/59; PULSE 107; RESP 16; TEMP 36.8; O2SAT 96
[2023-02-18] MEDS: HYDROcodone/acetaminophen (*CRX) 5-325 MG TABLET 1 TAB PO (20:53)
[2023-02-18] MEDS: LACTATED RINGERS 1,000 ML 50 ML IV CONT (20:54)
[2023-02-18 21:55] VITALS: BP 142/76; PULSE 100; RESP 16; TEMP 36.6; O2SAT 97
[2023-02-19] MEDS: DIPHENOXYLATE/ATROPINE (*CRX) 2.5 MG TABLET 1 TABLET PO (05:57)
[2023-02-19 06:00] VITALS: BP 135/80; PULSE 107; RESP 16; TEMP 36.7; O2SAT 97
[2023-02-19 06:02] LABS: Basophils Percent Auto 0.2 % (0.2-1.2); Eosinophils Absolute Auto 0.1 K/mm3 (0-0.3); Eosinophils Percent Auto 0.9 % (0-4.4); Hematocrit 25.2 % (37.0-47.0); Immature Granulocyte Absolute 0.35 K/mm3 (0.00-0.031); Immature Granulocyte Percent A 5.3 % (0-0.5); Lymphocytes Percent Auto 12.2 % (18.3-44.2); Mean Corpuscular HGB Conc 31.7 g/dl (32-36); Mean Corpuscular Hemoglobin 29.3 pg (26-34); Mean Corpuscular Volume 92.3 fl (80-100); Mean Platelet Volume 8.6 fl (7.4-10.4); Monocytes Absolute Auto 0.5 K/mm3 (0.1-0.6); Monocytes Percent Auto 7.8 % (2.6-8.5); Neutrophils Absolute Auto 4.9 K/mm3 (1.3-6.7); Neutrophils Percent Auto 73.6 % (45.5-73.1); Platelet Count Result 260 k/mm3 (150-375); Red Blood Count 2.73 M/mm3 (4.2-5.4); Red Cell Distribution Width 14.3 % (11.5-14.5); White Blood Count 6.6 K/mm3 (4.5-10.0)
[2023-02-19 06:08] LABS: Alanine Aminotransferase 17 U/L (6-35); Albumin Level 3.6 g/dL (3.5-5.1); Alkaline Phosphatase 63 U/L (38-126); Anion Gap 8 mmol/L (8-16); Aspartate Amino Transferase 32 U/L (14-36); Bilirubin,Total 0.4 mg/dL (0.2-1.3); Blood Urea Nitrogen 13 mg/dL (7-17); Calcium 7.9 mg/dL (8.4-10.2); Carbon Dioxide 21 mmol/L (22-30); Chloride 108 mmol/L (98-107); Estimated CRCL calculation 52 ml/min; Estimated Glomerular Filt Rate > 60; Glucose 100 mg/dL (65-110); Magnesium 1.6 mg/dL (1.6-2.3); Potassium 3.9 mmol/L (3.4-5.0); Sodium 137 mmol/L (137-145)
[2023-02-19] MEDS: LETROZOLE (*CHEMO) 2.5 MG TABLET PO (09:46)
[2023-02-19] MEDS: FERROUS SULFATE 325 MG TABLET DR PO (09:46)
[2023-02-19] MEDS: MULTIVITAMINS THERAPEUTIC TAB (*BKC) 1 TABLET PO (09:46)
[2023-02-19] MEDS: ENOXAPARIN 40 MG/0.4 ML SYRINGE SUB-Q (09:47)
[2023-02-19] MEDS: ASCORBIC ACID 500 MG TABLET PO (09:47)
--- NOTE | 2023-02-19 12:35 | PM.DS ---
DS: Admitting Diagnosis Discharge Date 02/19/2023 Admitting Diagnosis Acute on chronic kidney failure, electrolyte abnormality, dehydration, diarrhea, chronic anemia, breast cancer metastasized to bone DS: Discharge Diagnosis Discharge Diagnosis (1) Chemotherapy induced diarrhea: Code(s): K52.1 - Toxic gastroenteritis and colitis; T45.1X5A - Adverse effect of antineoplastic and immunosuppressive drugs, initial encounter Status: Acute (2) Chronic anemia: Code(s): D64.9 - Anemia, unspecified Status: Acute (3) Electrolyte abnormality: Code(s): E87.8 - Other disorders of electrolyte and fluid balance, not elsewhere classified Status: Acute (4) Dehydration: Code(s): E86.0 - Dehydration Status: Acute (5) Acute on chronic kidney failure: Code(s): N17.9 - Acute kidney failure, unspecified; N18.9 - Chronic kidney disease, unspecified Status: Acute (6) Breast cancer metastasized to bone: Code(s): C50.919 - Malignant neoplasm of unspecified site of unspecified female breast; C79.51 - Secondary malignant neoplasm of bone Status: Acute (7) Diarrhea: Qualifiers: Diarrhea type: unspecified type Qualified Code(s): R19.7 - Diarrhea, unspecified Code(s): R19.7 - Diarrhea, unspecified Status: Acute (8) Use of letrozole (Femara): Code(s): Z79.811 - buttermaker (current) use of aromatase inhibitors Status: Acute (9) Bone metastasis: Code(s): C79.51 - Secondary malignant neoplasm of bone Status: Acute DS: Summary Hospital Course Reason for hospitalization: Profuse diarrhea associated with chemotherapy, IZAIAH Hospital Course: 02/16 H&P:? This is a very pleasant 72-year-old female with right breast cancer diagnosed with widespread osseous metastatic disease in December 2021 who presented to the emergency department via private vehicle from home for evaluation of diarrhea. The patient provides the following history. About a month ago she started having daily episodes of diarrhea and eventually got under control with Lomotil and other prescription medication that she was given by Dr. Rivera (it was thought that her chemotherapy agents were the cause of the diarrhea). Unfortunate within the last 3 to 4 days or so the diarrhea has returned and she is going between 5 to 10 times a day. She describes dark, watery diarrhea (she is on iron supplementation and her urine stool is always dark) and she has not noticed any bright red blood or mucus in the stool. She does not have any abdominal discomfort with that. It does seem to slow down somewhat with and not eating. She has tried to cut back on her magnesium but is now on supplementation as her magnesium stores are low. She denies fever, chills, and sweats. No recent antibiotic use. No recent travel. No sick contacts. She was afebrile on arrival with stable blood pressures. Labs were significant for acute on chronic kidney injury and multiple electrolyte abnormalities including a sodium of 136, potassium 5.6, chloride 108, carbon dioxide 14, calcium 10.4. She received 2 L IV fluid in the ED and she is being admitted in this setting for further hydration and close monitoring of electrolytes. 02/17:? Dr. Rivera saw patient and stopped a chemo medication that is likely cause of diarrhea.? IV fluids will continue.? Patient already asking if she can go home tomorrow.? She did not eat lunch today, states that when she eats it causes diarrhea so she is not eating much.? I explained that we would want her symptoms better and her to eat before discharge. 02/18:? Patient still having significant decreased appetite this morning.? Loose stools improving some but fecal incontinence did occur.? Patient reports significant exhaustion from such frequent diarrhea.? Recommended patient stay another day and increase oral fluids in the meantime.? IV fluid rate decreased from 100 mL/hr to 50 mL/hr.? 02/19: Patient tolerati
[2023-03-05 16:11] LABS: Serotonin 528 ng/mL (56-244)
== END 2023-02-19 14:08 | disposition home or self-care (01) | DRG 683 ==
LOC: ANHED 19:42 → ANH3MEDSUR 20:34
PROVIDERS: Emergency Medicine; Internal Medicine Hematology & Oncology; Nurse Practitioner; Physician Assistant; Admitting Provider Internal Medicine; Emergency Provider Emergency Medicine; PCP Physician Assistant; Visit Provider Internal Medicine
DX: N17.9 Acute kidney failure, unspecified (principal); C79.51 Secondary malignant neoplasm of bone; K52.1 Toxic gastroenteritis and colitis; E87.5 Hyperkalemia; E86.0 Dehydration; E83.42 Hypomagnesemia; I12.9 Hypertensive chronic kidney disease with stage 1 through stage 4 chronic kidney disease, or unspecified chronic kidney disease; N18.9 Chronic kidney disease, unspecified; C50.919 Malignant neoplasm of unspecified site of unspecified female breast; K21.9 Gastro-esophageal reflux disease without esophagitis; D64.9 Anemia, unspecified; T45.1X5A Adverse effect of antineoplastic and immunosuppressive drugs, initial encounter
CPT/HCPCS: 36415; 74176; 80048; 80053; 81003; 83605; 83690; 83735; 84260; 84439; 84443; 84480; 85025; 86316; 87045; 87269; 87272; 87427; 87449; 87493; 93005; 96361; 96365; 96375; 99285; A9270; G0378; J1650; J2405; J3475; J7030; J7070; J7120

== ENCOUNTER 2023-02-24 09:48 | Emergency (ER) | payer MEDICARE, OTHER, SELFPAY ==
--- NOTE | ~2023-02-24 | CT_ITS ---
EXAMINATION: CT facial bones w con DATE: 02/24/2023 13:27 INDICATION: Chin abscess. TECHNIQUE: Computed tomography (CT) of the facial bones and maxillofacial region was performed with 7 5 mL Omnipaque 350 intravenous contrast. Automated exposure control and iterative reconstruction tech [employer]que were employed. The dose-length product was 415.84 mGy-cm. COMPARISON: Bone scan 02/12/2023, 07/22/22, mandible radiographs 12/16/2022, PET/CT 10/01/2021 FINDINGS: There are likely changes of ocular lens replacement surgeries. There is a 3.0 x 3.0 x 2.4 c m mass in the submandibular region abutting the skin and mandible. There is irregularity of the skin margin. There is aggressive periosteal reaction of the adjacent mandible. There is ill-defined sclero sis in the mandible. There are multiple sclerotic lesions in the cervical spine. IMPRESSION: 1. Subcutaneous submandibular mass, consistent with phlegmon/abscess versus metastatic disease. 2. Sclerosis and aggressive periosteal reaction of the mandible, consistent with osteomyelitis versus metastatic disease. 3. Sclerotic lesions in the cervical spine, consistent with metastatic disease. Reviewed, dictated and finalized at location E. [facility]ER IMPRESSION: 1. Subcutaneous submandibular mass, consistent with phlegmon/abscess versus met astatic disease. 2. Sclerosis and aggressive periosteal reaction of the mandible, consistent wit h osteomyelitis versus metastatic disease. 3. Sclerotic lesions in the cervical spine, consistent with metastatic disease.
[2023-02-24 10:01] VITALS: BP 137/79; PULSE 132; RESP 20; TEMP 36.5; O2SAT 100
--- NOTE | 2023-02-24 11:47 | ED.GENADULT ---
HPI - General Adult General Chief complaint: Wound/Laceration Stated complaint: wound popped open Time Seen by Provider: 02/24/23 11:57 Source: patient and family Mode of arrival: ambulatory Limitations: no limitations History of Present Illness HPI narrative: 72 YEARS OLD WHITE FEMALE PRESENTS WITH A LUMP AT THE SUBMANDIBULAR AREA FOR THE LAST 2 MONTHS QUESTIONABLE METASTASIS, OVERNIGHT OPENED UP AND START LEAKING PURULENT DISCHARGE. SHE DENIES ANY FEVER OR CHILLS. HISTORY OF BREAST CANCER STAGE IV WITH BONE METASTASIS ALL OVER. CURRENTLY ON IMMUNE SUPPRESSANT MEDICATION FOR LAST 1 AND HALF YEAR Related Data Home Medications Medication Instructions Recorded Confirmed ascorbic acid (vitamin C) 500 mg 500 mg PO DAILY 12/17/18 02/24/23 tablet famotidine 20 mg tablet 20 mg PO DAILY PRN Dyspepsia 12/17/18 02/24/23 multivitamin 1 tablet PO DAILY 12/17/18 02/24/23 acetaminophen 500 mg capsule 500 mg PO Q6H PRN Pain 10/07/21 02/24/23 ferrous sulfate 325 mg (65 mg 325 mg PO DAILY 10/07/21 02/24/23 iron) tablet letrozole 2.5 mg tablet 2.5 mg PO DAILY 10/07/21 02/24/23 lapatinib 250 mg tablet 1,000 mg PO DAILY 11/19/21 02/24/23 lisinopril 20 mg tablet 20 mg PO QAM 02/16/23 02/16/23 Allergies Allergy/AdvReac Type Severity Reaction Status Date / Time amoxicillin [From Augmentin] AdvReac Nausea and Verified 02/24/23 17:03 Vomiting clavulanic acid AdvReac Nausea and Verified 02/24/23 17:03 [From Augmentin] Vomiting Review of Systems Review of Systems: All systems reviewed & are unremarkable except as noted in HPI and below PMFSH Past Medical History Medical History Anemia Breast cancer metastasized to bone Chemotherapy induced diarrhea GERD (gastroesophageal reflux disease) History of breast cancer HTN (hypertension) Surgical History Surgical History History of lumpectomy Hx of appendectomy Family History Family History Mother Patient's mother is Father Cerebrovascular accident Social History Social History Social History: Surrogate medical decision maker: Moe Marks, spouse. Code status: full code. Smoking status: Never smoker Second hand tobacco smoke exposure: No Alcohol intake: never Drinks per week: 1 Substance use: never Do You Feel Safe in your Home?: Yes Lack of Transportation: No Lack of Food: Never True Current Housing: I Have Housing Concerned About Future Housing: No Difficulty Paying Gas/Electric Bills: No Difficulty Paying for Meds: No Currently Unemployed: No Education: Decline to Answer Difficulty w/ Childcare or Family Care: No Living arrangements: with family Additional living arrangements comments: Lives with in [place]. They have 1 child. Spiritual care concerns: No Exam Narrative: GENERAL APPEARANCE: WELL-DEVELOPED, WELL-NOURISHED SKIN: NORMAL COLOR HEAD: NORMOCEPHALIC, NONTRAUMATIC EYES: CLEAR CONJUNCTIVA ENT: OROPHARYNX NORMAL, EARS NORMAL, NOSE NORMAL NECK: SUPPLE, NONTENDER, SUB MANDIBULAR MASS, FIRM IN CONSISTENCY, WITH AN OPENING LEAKING PURULENT DISCHARGE CHEST AND RESPIRATORY: AIRWAY PATENT, NO RESPIRATORY DISTRESS, NO ACCESSORY MUSCLE USE HEART: REGULAR RATE/RHYTHM ABDOMEN: SOFT, NONTENDER, NO ORGANOMEGALY, QUIET BOWEL SOUNDS VASCULAR: NORMAL PERIPHERAL PULSES, NORMAL CAPILLARY REFILL. MUSCULOSKELETAL: NORMAL RANGE OF MOTION, NONTENDER BACK NEUROLOGIC: ALERT AND ORIENTED ?3, AIRPORT SECURITY SCREENER IS NORMAL TESTED, NO GROSS MOTOR DEFICIT
[2023-02-24 12:09] VITALS: BP 139/69; PULSE 111; RESP 18; TEMP 36.8; O2SAT 97
[2023-02-24 12:20] LABS: Basophils Percent Auto 0.2 % (0.2-1.2); Eosinophils Percent Auto 0.1 % (0-4.4); Hematocrit 30.9 % (37.0-47.0); Hemoglobin 9.8 g/dL (12.0-15.0); Immature Granulocyte Absolute 0.35 K/mm3 (0.00-0.031); Immature Granulocyte Percent A 2.3 % (0-0.5); Lymphocytes Absolute Auto 0.64 K/mm3 (0.9-3.2); Lymphocytes Percent Auto 4.2 % (18.3-44.2); Mean Corpuscular HGB Conc 31.7 g/dl (32-36); Mean Corpuscular Hemoglobin 29.3 pg (26-34); Mean Corpuscular Volume 92.2 fl (80-100); Mean Platelet Volume 8.7 fl (7.4-10.4); Monocytes Absolute Auto 0.8 K/mm3 (0.1-0.6); Monocytes Percent Auto 5.2 % (2.6-8.5); Neutrophils Absolute Auto 13.5 K/mm3 (1.3-6.7); Platelet Count Result 378 k/mm3 (150-375); Red Blood Count 3.35 M/mm3 (4.2-5.4); Red Cell Distribution Width 14.7 % (11.5-14.5); White Blood Count 15.3 K/mm3 (4.5-10.0)
[2023-02-24 12:40] LABS: Alanine Aminotransferase 39 U/L (6-35); Albumin Level 4.4 g/dL (3.5-5.1); Alkaline Phosphatase 132 U/L (38-126); Anion Gap 15 mmol/L (8-16); Aspartate Amino Transferase 47 U/L (14-36); Bilirubin,Total 0.8 mg/dL (0.2-1.3); Blood Urea Nitrogen 19 mg/dL (7-17); CRP 4.8 mg/dL (<1.0); Calcium 10.6 mg/dL (8.4-10.2); Carbon Dioxide 19 mmol/L (22-30); Chloride 103 mmol/L (98-107); Estimated CRCL calculation 42 ml/min; Estimated Glomerular Filt Rate 49; Glucose 127 mg/dL (65-110); Potassium 4.9 mmol/L (3.4-5.0); Sodium 137 mmol/L (137-145)
[2023-02-24 12:56] LABS: Lactic Acid Reflex 1.5 mmol/L (0.7-2.0)
[2023-02-24 12:57] LABS: INR 1.1; Prothrombin Time 14.9 Seconds (11.1-14.7)
[2023-02-24 12:58] LABS: Partial Thromboplastin Time 35.8 SECONDS (22.3-36.8)
[2023-02-24 14:10] VITALS: BP 141/74; PULSE 103; RESP 20; TEMP 36.6; O2SAT 97
[2023-02-24] MEDS: ONDANSETRON INJ 4 MG/2 ML VIAL 8 MG (16:25)
[2023-02-24] MEDS: PIPERACILLN/TAZ 3.375GM/NS50ML 3.375 GM/50 ML BAG IVPB (16:26)
[2023-02-24] MEDS: SODIUM CHLORIDE 0.9% IV 1,000 ML 999 ML IV CONT (16:26)
[2023-02-24 16:59] VITALS: BP 139/78; PULSE 97; RESP 18; TEMP 36.7; O2SAT 97
[2023-02-24] MEDS: VANCOMYCIN 2,000 MG/NS 500 ML 2,000 MG/500 ML BAG 250 MG IVPB (17:42)
[2023-02-24 18:01] VITALS: BP 134/74; PULSE 99; RESP 16; TEMP 36.9; O2SAT 98
== END 2023-02-24 18:04 | disposition short-term general hospital (02) ==
PROVIDERS: Emergency Provider Emergency Medicine; PCP Physician Assistant
DX: M27.2 Inflammatory conditions of jaws (principal); C50.919 Malignant neoplasm of unspecified site of unspecified female breast; C79.52 Secondary malignant neoplasm of bone marrow; D64.9 Anemia, unspecified; K21.9 Gastro-esophageal reflux disease without esophagitis; I10 Essential (primary) hypertension; Z79.811 Long term (current) use of aromatase inhibitors
CPT/HCPCS: 36415; 70487; 80053; 83605; 85025; 85610; 85730; 86140; 87040; 96361; 96365; 96367; 96375; 99212; 99285; G0463; J2405; J2543; J3370; J7030; Q9967

== ENCOUNTER 2023-03-26 07:30 | Outpatient (CLI) | payer MEDICARE, OTHER, SELFPAY ==
--- NOTE | 2023-03-26 | ECHO_ITS ---
Patient Info Name: Syeda Marks Age: 72 years : 1950 Gender: Female Ht: 64 in Wt: 180 lbs BSA: 1.95 m2 HR: 85 bpm BP: 140 / 65 mmHg Technical Quality: Good Exam Date: 03/26/2023 7:55 AM Exam Location: Echo Lab Patient Status: Outpatient Admit Date: 03/26/2023 Staff Ordering Physician: Kiran Rivera MD Attending Provider: Kiran Rivera MD Referring Physician: Miguel HOWELL; Exam Type: CA echo doppler color flow Study Info Indications - post chemo Complete two-dimensional, color flow and Doppler transthoracic echocardiogram is performed. Strain analysis performed. Summary 1. Complete two-dimensional, color flow and Doppler transthoracic echocardiogram is performed. 2. Left ventricular chamber dimension is normal. 3. Left ventricular systolic function is normal, estimated at 60-65%. 4. The left ventricular diastolic function is grade I diastolic dysfunction. 5. E/e' 12 is mildly elevated. 6. Global longitudinal strain is normal at -18.4%. 7. Left atrial chamber dimension is mildly enlarged. 8. There is trace mitral valve regurgitation. 9. No pulmonary hypertension, estimated pulmonary arterial systolic pressure is 28 mmHg. Left Ventricle E/e' 12 is mildly elevated. Global longitudinal strain is normal at -18.4%. Left ventricular chamber dimension is normal. Left ventricular systolic function is normal, estimated at 60-65%. The left ventricular diastolic function is grade I diastolic dysfunction. Right Ventricle Right ventricular systolic function is normal and with normal TAPSE 2.0 cm. Right ventricular chamber dimension is normal. Left Atria Left atrial chamber dimension is mildly enlarged. Right Atria Right atrial chamber dimension is normal. Aortic Valve The aortic valve is trileaflet. There is no aortic valve stenosis. There is no aortic valve regurgitation. Pulmonic Valve There is no pulmonic regurgitation. Mitral Valve There is no mitral valve stenosis. There is trace mitral valve regurgitation. Tricuspid Valve There is no tricuspid valve regurgitation. No pulmonary hypertension, estimated pulmonary arterial systolic pressure is 28 mmHg. Pericardium/Pleural There is no pericardial effusion. Inferior Vena Cava Normal inferior vena cava with >50% collapse upon inspiration consistent with normal right atrial pressure, 5 mmHg. Aorta The aortic root size at the sinus of Valsalva is normal. Left Ventricular Outflow Tract Name Value Normal LVOT 2D LVOT Diameter 2.0 cm LVOT Doppler LVOT Peak Gradient 3 mmHg LVOT Mean Gradient 2 mmHg LVOT VTI 19 cm LVOT VTI/AV VTI Ratio 0.8 LVOT Stroke Volume 59 ml LVOT CO 4.1 l/min LVOT CI 2.1 l/min/m2 Pulmonic Valve Name Value Normal PV Doppler PV Peak Gradie
== END 2023-03-26 07:31 | disposition home or self-care (01) ==
LOC: ANHCARD 07:31
PROVIDERS: PCP Internal Medicine; Visit Provider Internal Medicine Hematology & Oncology
DX: C50.911 Malignant neoplasm of unspecified site of right female breast (principal); I34.0 Nonrheumatic mitral (valve) insufficiency; R93.1 Abnormal findings on diagnostic imaging of heart and coronary circulation; Z79.60 Long term (current) use of unspecified immunomodulators and immunosuppressants
CPT/HCPCS: 36415; 80053; 85025; 86300; 93306

== ENCOUNTER 2023-06-23 10:26 | Outpatient (CLI) | payer MEDICARE, OTHER, SELFPAY ==
--- NOTE | 2023-06-23 | ECHO_ITS ---
Patient Info Name: Syeda Marks Age: 72 years : 1950 Gender: Female Ht: 59 in Wt: 170 lbs BSA: 1.83 m2 HR: 140 bpm BP: 124 / 76 mmHg Heart Rhythm: Tachycardia Technical Quality: Good Exam Date: 06/23/2023 10:57 AM Exam Location: Echo Lab Patient Status: Outpatient Admit Date: 06/23/2023 Staff Ordering Physician: Kiran Rivera MD Reservations Sales Supervisor: Aliya Ponce RDCS Attending Provider: Kiran Rivera MD Referring Physician: Miguel HOWELL; Exam Type: CA echo doppler color flow Study Info Indications - during chemo Complete two-dimensional, color flow and Doppler transthoracic echocardiogram is performed. Summary 1. Complete two-dimensional, color flow and Doppler transthoracic echocardiogram is performed. 2. Left ventricular chamber dimension is normal. 3. Left ventricular systolic function is normal, estimated at 60-65%. 4. The left ventricular diastolic function is grade I diastolic dysfunction. 5. E/e' 6 is not elevated. 6. There is trace mitral valve regurgitation. 7. No pulmonary hypertension, estimated pulmonary arterial systolic pressure is 24 mmHg. Left Ventricle E/e' 6 is not elevated. Left ventricular chamber dimension is normal. Left ventricular systolic function is normal, estimated at 60-65%. The left ventricular diastolic function is grade I diastolic dysfunction. Right Ventricle Right ventricular chamber dimension is normal. Right ventricular systolic function is normal. Left Atria Left atrial chamber dimension is normal. Right Atria Right atrial chamber dimension is normal. Aortic Valve The aortic valve is trileaflet. There is no aortic valve stenosis. There is no aortic valve regurgitation. Pulmonic Valve There is no pulmonic regurgitation. Mitral Valve There is no mitral valve stenosis. There is trace mitral valve regurgitation. Tricuspid Valve There is no tricuspid valve regurgitation. No pulmonary hypertension, estimated pulmonary arterial systolic pressure is 24 mmHg. Pericardium/Pleural There is no pericardial effusion. Inferior Vena Cava Normal inferior vena cava with >50% collapse upon inspiration consistent with normal right atrial pressure, 5 mmHg. Aorta The aortic root size at the sinus of Valsalva is normal. Left Ventricular Outflow Tract Name Value Normal LVOT 2D LVOT Diameter 2.0 cm LVOT Doppler LVOT Peak Gradient 3 mmHg LVOT Mean Gradient 2 mmHg LVOT VTI 14 cm LVOT VTI/AV VTI Ratio 0.8 LVOT Stroke Volume 42 ml LVOT CO 4.2 l/min LVOT CI 2.3 l/min/m2 Pulmonic Valve Name Value Normal RVOT Doppler RVOT Peak Gradient 2 mmHg PV Doppler PV Peak Gradient
== END 2023-06-23 10:27 | disposition home or self-care (01) ==
LOC: ANHCARD 10:28
PROVIDERS: PCP Physician Assistant; Visit Provider Internal Medicine Hematology & Oncology
DX: Z51.81 Encounter for therapeutic drug level monitoring (principal); Z79.630 Long term (current) use of alkylating agent; C50.911 Malignant neoplasm of unspecified site of right female breast
CPT/HCPCS: 93306

== ENCOUNTER 2023-08-25 07:24 | Emergency (ER) | payer MEDICARE, OTHER, SELFPAY ==
[2023-08-25 07:29] VITALS: BP 146/68; PULSE 113; RESP 17; TEMP 37.2; O2SAT 99
--- NOTE | 2023-08-25 08:06 | ED.GENADULT ---
HPI - General Adult General Chief complaint: Skin/Abscess/Foreign Body Stated complaint: cyst Time Seen by Provider: 08/25/23 07:49 History of Present Illness HPI narrative: 72-year-old female presents to the emergency department for evaluation for a wound did to her chin. Patient states she did have a cyst that last year that was ultimately drained. Patient reports that the cyst has come back. Patient does describe drainage from the cyst. Patient did have follow-up with ENT and he stated he was unable to do in the for the cyst and did set the patient up with follow-up with a physician and [facility] for next week. Patient states she was concerned about the symptoms that she was having such is the intermittent drainage from the wound so she wanted to be evaluated did not feel she could wait the week until her appointment. Patient is currently following up with Oncology for metastatic breast cancer. Related Data Home Medications Medication Instructions Recorded Confirmed ascorbic acid (vitamin C) 500 mg 500 mg PO DAILY 12/17/18 08/10/23 tablet famotidine 20 mg tablet 20 mg PO DAILY PRN Dyspepsia 12/17/18 08/10/23 multivitamin 1 tablet PO DAILY 12/17/18 08/10/23 acetaminophen 500 mg capsule 500 mg PO Q6H PRN Pain 10/07/21 08/10/23 ferrous sulfate 325 mg (65 mg 325 mg PO DAILY 10/07/21 08/10/23 iron) tablet letrozole 2.5 mg tablet 2.5 mg PO DAILY 10/07/21 08/10/23 Probiotic 1 tablet PO DAILY 04/24/23 08/10/23 doxycycline hyclate 1 tablet PO BID 04/24/23 08/10/23 vitamin B12 1 mg-folic acid 0.8 mg 1,000 tablet PO DAILY 07/23/23 08/10/23 tablet Allergies Allergy/AdvReac Type Severity Reaction Status Date / Time amoxicillin [From Augmentin] AdvReac Nausea and Verified 08/25/23 07:34 Vomiting clavulanic acid AdvReac Nausea and Verified 08/25/23 07:34 [From Augmentin] Vomiting Review of Systems Review of Systems: All systems reviewed & are unremarkable except as noted in HPI and below PMFSH Past Medical History Medical History Anemia Breast cancer metastasized to bone Chemotherapy induced diarrhea GERD (gastroesophageal reflux disease) History of breast cancer HTN (hypertension) Surgical History Surgical History History of lumpectomy Hx of appendectomy Family History Family History Mother Patient's mother is Father Cerebrovascular accident Social History Social History Social History: Surrogate medical decision maker: Moe Marks, spouse. Code status: full code. Smoking status: Never smoker Second hand tobacco smoke exposure: No Alcohol intake: never Drinks per week: 1 Substance use: never Do You Feel Safe in your Home?: Yes Lack of Transportation: No Lack of Food: Never True Current Housing: I Have Housing Concerned About Future Housing: No Difficulty Paying Gas/Electric Bills: No Difficulty Paying for Meds: No Currently Unemployed: No Education: Decline to Answer Difficulty w/ Childcare or Family Care: No Living arrangements: with family Additional living arrangements comments: Lives with in [place]. They have 1 child. Spiritual care concerns: No Exam Narrative: APPEARANCE: Well appearing, no pain, no distress, well-nourished. HEAD: normocephalic, atraumatic. EYES: PERRLA/EOMI, conjunctivae clear. NOSE: Normal no drainage EARS:TMS clear with good light reflex. THROAT: Pharynx clear, no exudate. NECK: Supple. No adenopathy, no masses. RESPIRATORY: Airway patent, respirations nonlabored. Clear to auscultation bilaterally, no rales, rhonchi, wheezing. CARDIOVASCULAR: Regular rate and rhythm without murmurs rubs or gallops. ABDOMINAL: Soft, nontender, nondistended, normal bowel sounds M
[2023-08-25] MEDS: CEPHALEXIN 500 MG CAPSULE PO (08:23)
== END 2023-08-25 08:24 | disposition home or self-care (01) ==
LOC: ANHED 08:10
PROVIDERS: Emergency Provider Emergency Medicine; PCP Internal Medicine
DX: L72.9 Follicular cyst of the skin and subcutaneous tissue, unspecified (principal); I10 Essential (primary) hypertension; Z85.3 Personal history of malignant neoplasm of breast
CPT/HCPCS: 71250; 74176; 78306; 99283; A9270; A9503

== ENCOUNTER 2023-08-25 08:39 | Outpatient (CLI) | payer MEDICARE, OTHER, SELFPAY ==
--- NOTE | ~2023-08-25 | NM_ITS ---
EXAMINATION: NM bone scan whole body DATE: 08/25/2023 13:05 INDICATION: Invasive ductal carcinoma of the breast TECHNIQUE: 23.6 mCi Tc-99m HDP was administered intravenously. Delayed whole-body scintigrams were o btained. COMPARISON: Bone scan dated 07/22/2022 and 02/12/[address] chest, abdomen and pelvis dated -07/23 FINDINGS: No significant change in scattered foci of increased bone uptake the largest and most intense at the mandible. There are several additional lesions in the spine, ribs and pelvis consistent with widespre ad metastatic disease with more extensive sclerotic bone disease evident on the CT than on the curren t bone scan suggesting treated metastatic disease. There is a new region of likely soft tissue activi ty at the dorsum of the left wrist likely representing extravasation at the site of injection. No oth er new or enlarging lesions identified when compared with the prior bone scan. IMPRESSION: 1. Stable appearance of widespread bone uptake in the axial and appendicular skeleton consistent with metastatic disease. Reviewed, dictated and finalized at location B. IMPRESSION: 1. Stable appearance of widespread bone uptake in the axial and appendicular sk [place]leton consistent with metastatic disease.
--- NOTE | ~2023-08-25 | CT_ITS ---
EXAMINATION: CT chest abdomen pelvis wo con DATE: 08/25/2023 09:06 INDICATION: Invasive ductal breast carcinoma. TECHNIQUE: Computed tomography (CT) of the chest, abdomen, and pelvis was performed without intraveno us contrast. Automated exposure control and iterative reconstruction technique were employed. The dos e-length product was 843.37 mGy-cm. COMPARISON: 02/16/2023 FINDINGS: CHEST CT: Mild biapical pleural-parenchymal scarring. There are few small bilateral calcified pulmonary nodules consistent with old granulomatous disease. No suspicious noncalcified pulmonary nodules. Mild discoi d atelectasis in the lingula and bilateral lower lobes. No pneumonia, pulmonary edema, pleural effusi on or pneumothorax. Left supraclavicular central venous port catheter with distal tip at the superior cavoatrial junction. Thoracic aorta is normal in caliber. No pathologically enlarged thoracic lympha denopathy. A couple surgical clips in the left breast adjacent to a small ovoid region of central fat attenuation with surrounding thin surrounding rim of soft tissue density suggestive of fat necrosis at the site of a likely excisional breast biopsy. Additional surgical clips the right axilla likely r elated to prior lymph node dissection. Severe thoracic spondylosis. There are numerous scattered scle rotic bone lesions in the spine, and multiple ribs, and the sternum and scapula consistent with wides pread osseous metastatic disease. ABDOMEN/PELVIS CT: Liver, gallbladder, pancreas, bilateral adrenal glands and right kidney are normal. 2.1 cm left renal cyst and 2 mm nonobstructing stone at the lower pole of the left kidney. 1.5 cm splenic cyst. 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 No bowel obstruction. Suggestion of a ne w calcified mass at the tip of the cecum Multiple uterine fibroids, several of which are calcified, t he 2 largest measuring up to 7.0 cm and 6.3 cm. Bladder is normal. Very small amount of likely physio logic free fluid in the cul-de-sac. Unchanged partially calcified 2.1 x 1.9 cm central mesenteric mas s. No other pathologically enlarged abdominal or pelvic lymphadenopathy. Additional extensive scatter ed sclerotic metastatic bone lesions in the lumbar spine and pelvis. A few chronic likely pathologic compression fractures in the lower thoracic and upper lumbar spine. Additional chronic nondisplaced l ikely pathologic fracture at the right sacral ala. IMPRESSION: 1. Extensive scattered sclerotic bone lesions consistent with metastatic disease. These appear unchan ged when compared with the prior study. 2. Unchanged 2.1 x 1.9 cm partially calcified spiculated central mesenteric mass which could be secon yuri to carcinoid tumor, sclerosing mesenteritis or treated metastatic disease or lymphoma. 3. Fibroid uterus. 4. 2 mm nonobstructing left renal stone. Reviewed, dictated and finalized at location B. IMPRESSION: 1. Extensive scattered sclerotic bone lesions consistent with metastatic diseas e. These appear unchanged when compared with the prior study. 2. Unchanged 2.1 x 1.9 cm partially calcified spiculated central mesenteric mas s which could be secondary to carcinoid tumor, sclerosing mesenteritis or treat ed metastatic disease or lymphoma. 3. Fibroid uterus. 4. 2 mm nonobstructing left renal stone.
== END 2023-08-25 08:40 | disposition home or self-care (01) ==
LOC: ANHIMG 08:42
PROVIDERS: PCP Internal Medicine; Visit Provider Internal Medicine Hematology & Oncology
DX: C50.911 Malignant neoplasm of unspecified site of right female breast (principal); D25.9 Leiomyoma of uterus, unspecified; N20.0 Calculus of kidney
CPT/HCPCS: 71250; 74176; 78306; A9503

== ENCOUNTER 2023-10-13 08:30 | Outpatient (CLI) | payer MEDICARE, OTHER, SELFPAY ==
--- NOTE | 2023-10-13 | ECHO_ITS ---
Patient Info Name: Syeda Marks Age: 72 years : 1950 Gender: Female Ht: 64 in Wt: 178 lbs BSA: 1.94 m2 HR: 97 bpm BP: 142 / 71 mmHg Heart Rhythm: Sinus Rhythm Technical Quality: Good Exam Date: 10/13/2023 8:55 AM Exam Location: Echo Lab Patient Status: Outpatient Admit Date: 10/13/2023 Staff Ordering Physician: Kiran Rivera MD Manager Multicultural: Selma Collins RDCS Attending Provider: Kiran Rivera MD Referring Physician: Miguel HOWELL; Exam Type: CA echo doppler color flow Study Info Indications - Z51.81 Complete two-dimensional, color flow and Doppler transthoracic echocardiogram is performed. Strain analysis performed. Summary 1. Complete two-dimensional, color flow and Doppler transthoracic echocardiogram is performed. 2. Left ventricular chamber dimension is normal. 3. Left ventricular systolic function is normal, estimated at 65-70%. 4. The left ventricular diastolic function is grade I diastolic dysfunction. 5. E/e' 9 is minimally elevated. 6. Global longitudinal strain is normal at -21.8%. 7. No pulmonary hypertension, estimated pulmonary arterial systolic pressure is 17 mmHg. Left Ventricle E/e' 9 is minimally elevated. Global longitudinal strain is normal at -21.8%. Left ventricular chamber dimension is normal. Left ventricular systolic function is normal, estimated at 65-70%. The left ventricular diastolic function is grade I diastolic dysfunction. Right Ventricle Right ventricular systolic function is normal and with normal TAPSE 2.3 cm. Right ventricular chamber dimension is normal. Left Atria Left atrial chamber dimension is normal. Right Atria Right atrial chamber dimension is normal. Aortic Valve The aortic valve is trileaflet. There is no aortic valve stenosis. There is no aortic valve regurgitation. Pulmonic Valve There is no pulmonic regurgitation. Mitral Valve There is no mitral valve stenosis. There is no mitral valve regurgitation. Tricuspid Valve There is no tricuspid valve regurgitation. No pulmonary hypertension, estimated pulmonary arterial systolic pressure is 17 mmHg. Pericardium/Pleural There is no pericardial effusion. Inferior Vena Cava Normal inferior vena cava with >50% collapse upon inspiration consistent with normal right atrial pressure, 5 mmHg. Aorta The aortic root size at the sinus of Valsalva is normal. Left Ventricular Outflow Tract Name Value Normal LVOT 2D LVOT Diameter 2.0 cm LVOT Doppler LVOT Peak Gradient 5 mmHg LVOT Mean Gradient 2 mmHg LVOT VTI 18 cm LVOT VTI/AV VTI Ratio 0.7 LVOT Stroke Volume 54 ml LVOT CO 4.5 l/min LVOT CI 2.3 l/min/m2 Pulmonic Valve Name Value Normal RVOT Doppler RVOT Peak Gradient 2 mmHg
== END 2023-10-13 08:31 | disposition home or self-care (01) ==
LOC: ANHCARD 08:30
PROVIDERS: PCP Internal Medicine; Visit Provider Internal Medicine Hematology & Oncology
DX: C50.911 Malignant neoplasm of unspecified site of right female breast (principal); Z51.81 Encounter for therapeutic drug level monitoring; Z79.899 Other long term (current) drug therapy
CPT/HCPCS: 93306

== ENCOUNTER 2023-12-08 08:15 | Outpatient (CLI) | payer MEDICARE, OTHER, SELFPAY ==
--- NOTE | ~2023-12-08 | NM_ITS ---
EXAMINATION: NM bone scan whole body DATE: 12/08/2023 12:28 INDICATION: Invasive ductal carcinoma of breast, female. TECHNIQUE: 24.7 mCi Tc-99m HDP was administered intravenously. Delayed whole-body scintigrams were o btained. COMPARISON: Bone scan 08/25/2023, CT chest, abdomen, and pelvis 12/08/2023, CT maxillofacial 02/24/23 FINDINGS: There are widespread scattered foci of increased activity involving the spine, ribs, pelvis , proximal femora, sternum, and mandible correlating with predominantly sclerotic lesions by CT, cons istent with metastatic disease. IMPRESSION: 1. Widespread bone lesions, stable in distribution from 08/25/2023, consistent with metastatic disease . Reviewed, dictated and finalized at location A. IMPRESSION: 1. Widespread bone lesions, stable in distribution from 08/25/2023, consistent w ith metastatic disease.
--- NOTE | ~2023-12-08 | CT_ITS ---
Clinical Indication: Breast cancer CT Scan of the Chest, Abdomen, and Pelvis without Contrast: Technique: Contiguous sections were acquired throughout the chest, abdomen, and pelvis without IV con trast administration. Dose reduction technique was used on this scan by utilizing automated exposure control and iterative reconstruction technique. The dose-length product (DLP) was 1052.03 mGy-cm. Comparison: 08/25/2023 Findings: There is no evidence of any significant mediastinal, hilar or axillary lymphadenopathy. The mediastin al soft tissues appear normal. There is no evidence of pleural or pericardial effusion. Stable 2 mm right upper lobe pulmonary nodule/granuloma. There is linear right basilar scarring or at electasis. There is linear left basilar scarring or atelectasis. Calcified left lower lobe granulomas are present. The liver, spleen, pancreas, gallbladder, adrenals and right kidney are within normal limits. 2-3 mm nonobstructing left renal stone present. No evidence of aortic aneurysm. No lymphadenopathy. No bowel obstruction or bowel wall thickening. There is an irregular coarsely calcified mesenteric ma ss measuring approximately 2.9 cm in maximum diameter (axial image 157).. Urinary bladder is unremarkable. Enlarged multi fibroid uterus present, with densely calcified fibroi ds present. Extensive sclerotic osseous metastatic disease throughout the skeleton is stable from prior exam. Impression: No change from prior exam. Extensive sclerotic osseous metastatic disease, possibly treated disease. Stable 2.9 cm irregular calcified mesenteric mass. Stable small nonobstructing left renal stone. Enlarged multi fibroid uterus. Reviewed, dictated and finalized at [facility]. Impression: No change from prior exam. Extensive sclerotic osseous metastatic disease, poss ibly treated disease. Stable 2.9 cm irregular calcified mesenteric mass. Stable small nonobstructing left renal stone. Enlarged multi fibroid uterus.
[2023-12-08 09:23] LABS: Estimated Glomerular Filt Rate 24
== END 2023-12-08 08:16 | disposition home or self-care (01) ==
PROVIDERS: PCP Internal Medicine; Visit Provider Internal Medicine Hematology & Oncology
DX: C50.911 Malignant neoplasm of unspecified site of right female breast (principal); D25.9 Leiomyoma of uterus, unspecified; N20.0 Calculus of kidney
CPT/HCPCS: 71250; 74176; 78306; A9503

== ENCOUNTER 2023-12-25 15:00 | Inpatient (IN) | payer MEDICARE, OTHER, SELFPAY ==
[2023-12-25] VITALS (11 sets, daily range): BP systolic 126–150; BP diastolic 56–76; PULSE 99–123; RESP 17–27; TEMP 36.4–37.1; O2SAT 96–100; BMI 29.9
--- NOTE | ~2023-12-25 | XR_ITS ---
EXAMINATION: XR ERCP DATE: 12/28/2023 14:11 INDICATION: Choledocholithiasis. TECHNIQUE: 2 spot fluoroscopic images of the right upper quadrant were obtained during endoscopic ret rograde cholangiopancreatography (ERCP). Fluoroscopy exposure time was 287 seconds. COMPARISON: MRCP 12/26/2023 FINDINGS: Endoscope is in the second portion of the duodenum. There is contrast opacification of the common duct. There are stones in the common duct. IMPRESSION: 1. Choledocholithiasis. Please refer to the ERCP procedure note for additional details. Reviewed, dictated and finalized at location B.
--- NOTE | ~2023-12-25 | US_ITS ---
Right upper quadrant ABDOMINAL ULTRASOUND Ordering provider: Tony Magdaleno History: . RUQ tenderness . Comparison: None. FINDINGS: LIVER: Normal size and echotexture. No focal hepatic lesions or perihepatic fluid collections are matteo ntified. Normal flow of the portal vein. Slight dilatation of the proximal intrahepatic bile ducts. GALLBLADDER: Cholelithiasis with multiple stones. the largest measures 1.9 CNM.. No evidence for slud ge, gallbladder wall thickening or pericholecystic fluid collections. Wall thickness is 0.4 cm. A neg ative sonographic Campbell's sign was noted. BILIARY DUCTS: No evidence for intra or extrahepatic biliary dilation. Common bile duct measures 4 mm in diameter which is within normal limits. PANCREAS: Not demonstrated. UPPER ABDOMINAL AORTA: Normal in caliber. IVC: Patent. FREE FLUID: None. IMPRESSION: Cholelithiasis. Otherwise, Unremarkable right upper quadrant ultrasound of the abdomen. Reviewed, dictated and finalized at location A.
--- NOTE | ~2023-12-25 | MR_ITS ---
EXAMINATION: MR MRCP wo/w con/w 3D wo ind DATE: 12/26/2023 08:18 INDICATION: Right upper quadrant abdominal pain. TECHNIQUE: Magnetic resonance imaging (MRI) of the abdomen was performed without and with 16 mL Multi Joya intravenous contrast. Sequences included coronal T2-weighted FS FSE, coronal T2-weighted FSE, a xial T1-weighted LAVA, coronal FS FIESTA, axial dual-echo T1-weighted SPGR, coronal lava-FLEX, sagitt al T2-weighted FSE, axial T2-weighted FSE, and axial DWI. Thick-slab T2-weighted FSE images were obta ined for magnetic resonance cholangiopancreatography (MRCP). Maximum intensity projection 3-D reconst ructions of the volumetric data were created by the technologist. Postcontrast sequences included cor onal LAVA-flex and time course of axial T1-weighted LAVA. COMPARISON: CT abdomen and pelvis 12/25/2023 FINDINGS: ABDOMEN MRI: There is moderate intrahepatic biliary duct dilatation. There are gallstones in the gall bladder, which is normal in size. There is a 16 mm cyst in the spleen. There is fat stranding around the head of the pancreas, consistent with acute interstitial pancreatitis. There is a 4 mm cyst in th e pancreas, likely benign. The adrenal glands and right kidney are normal. There is a 2.6 cm cyst in left kidney. There are no dilated loops of bowel. There is a 2.5 cm calcified mass in the mesentery. Partially visualized are uterine fibroids. There are widespread sclerotic lesions of bone. ABDOMEN MRCP: The common duct is dilated to 9 mm. There is an 8 mm stone in the common duct. IMPRESSION: 1. Acute interstitial pancreatitis. 2. Choledocholithiasis with intrahepatic and extrahepatic biliary duct dilatation. 3. Cholelithiasis. 4. Widespread sclerotic lesions of bone, consistent with metastatic disease. 5. 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 Reviewed, dictated and finalized at location A. IMPRESSION: 1. Acute interstitial pancreatitis. 2. Choledocholithiasis with intrahepatic and extrahepatic biliary duct dilatati on. 3. Cholelithiasis. 4. Widespread sclerotic lesions of bone, consistent with metastatic disease. 5. Chronic 2.5 cm calcified mass in the mesentery, consistent with sclerosing m esenteritis versus carcinoid.
--- NOTE | ~2023-12-25 | CT_ITS ---
CLINICAL INDICATION: Right upper quadrant tenderness, cholelithiasis. COMPARISON: Multiple prior CT examinations of the chest abdomen and pelvis performed most recently on 12/08/2023 and dating back to 01/28/2022. Reference is also made to right upper quadrant ultrasound examination, performed earlier this evening . TECHNIQUE: An enhanced CT of the abdomen and pelvis was performed utilizing multislice spiral [employer] ue reconstructed at 5 mm slice thickness. Coronal and sagittal reconstructions were performed. This CT examination was performed utilizing dose reduction techniques. DLP: 773 mGy-cm FINDINGS/OBSERVATIONS: Visualized lower thorax:Calcified granuloma within the left lower lobe for which no further follow-up is needed. The remainder of the bilateral lung bases are clear. Heart is of normal size, without pericardial eff usion. Liver: The liver is not enlarged but demonstrates dense attenuation within the biliary ducts, further evaluated below. Gallbladder and biliary system: The gallbladder is hydropic, measuring at least 9.6 cm in longitudina l dimension. Intrahepatic biliary ductal dilatation is present. Despite the ultrasound appearance and measurements, the common bile duct on CT appears markedly enlar ged (up to 15 mm), and demonstrates abnormally dense attenuation. Further evaluation with MRCP (or ER CP) is recommended. Ultrasound examination also demonstrated innumerable gallbladder stones, which are not calcified on C T examination. This could account for the increased density within the biliary tree, possibly a cause of obstruction, not visualized on today's noncontrast CT. Pancreas: The pancreas is atrophic. The lack of contrast limits its evaluation. Spleen: The spleen is not enlarged. A rounded 15 mm focus of decreased attenuation is identified within the spleen, unchanged dating back to 2021. The remainder of the spleen demonstrates homogeneous attenuation. Kidneys: Well-circumscribed fluid attenuation focus within the upper pole of the left kidney, unchang ed from 2021, representing a cyst for which no further follow-up is needed. 3 mm stone within the lower pole of the left kidney an interval change from prior studies. Adrenal glands: Unremarkable Gastrointestinal tract: Trace fecal stasis without obstruction. Calcified spiculated focus within the mesentery of the right lower quadrant, stable dating back to . Appendix:Surgically absent Vasculature: No aneurysmal dilatation of the abdominal aorta. The inferior vena cava is slit like, suggesting hypovolemia. Lymph nodes: Scattered nonpathologically enlarged lymph nodes throughout the retroperitoneum and at t he root of the mesentery, a nonspecific finding. Pelvic structures:The uterus is enlarged and nodular with multiple bulky calcifications, consistent w ith prior fibroid disease. The bladder is decompressed, limiting its evaluation. Body wall and musculoskeletal: Redemonstration of extensive blastic and sclerotic lesions throughout the spine, visualized portion of the sternum and pelvis, consistent with patient's known metastatic d isease. IMPRESSION: Gallbladder hydrops with indeterminate attenuation within the dilated common bile duct with extension to the central most intrahepatic ducts. These findings could represent obstruction due to malignancy versus choledocholithiasis for which MRC P/ERCP is recommended, if the patient is clinically able. Additional findings of significant hypovolemia given the appearance of the inferior vena cava. Nonobstructing calculus within the lower pole of the left kidney, increased in size from 12/08/2023 an d an interval change from 2022 and 2021. Redemonstration of known metastatic osseous disease, as detailed above These findings were discussed with Dr. Santos, caring for the patient in the ER at 7:00 PM on 2023 Reviewed, dictated and finalized at location A. IMPRESSION: Gallbladder hydrops with indeterminate attenuation within the dilated common bi le duct with extension to the central most intrahepatic ducts. These findings could represent obstruction due to malignancy versus choledochol ithiasis for which MRCP/ERCP is recommended, if the patient is clinically able. Additional findings of significant hypovolemia given the appearance of the infe rior vena cava. Nonobstructing calculus within the lower pole of the left kidney, increased in size from 12/08/2023 and an interval change from 2022 and 2021. Redemonstration of known metastatic osseous disease, as detailed above These findings were discussed with Dr. Santos, caring for the patient in the E R at 7:00 PM on 12/25/2023
--- NOTE | 2023-12-25 15:31 | ED_ITS ---
HPI - Abdominal Pain General Chief Complaint: Abdominal Pain <Tony Magdaleno PA-C - Last Filed: 12/25/23 15:34> Stated Complaint: RUQ abd pain <Tony Magdaleno PA-C - Last Filed: 12/25/23 15:34> Time Seen by Provider: 12/25/23 15:31 <Tony Magdaleno PA-C - Last Filed: 12/25/23 15:34> Focused HPI: This is a 73-year-old female with PMH of breast cancer with metastasis who presents to the ED for chief complaint of right upper quadrant abdominal pain beginning yesterday. Reports the pain has been intermittent but worsened today after drinking some milk. Reports the pain is primarily in the right upper quadrant but does radiate to the right flank at times. States that she toast and then the pain started to resolve but then came back full force. States that she was seen by Dr. Eduardo tubbs recently and had ch emo treatment 1 week ago. She is receiving chemo for cancer that has spread to the bones. Denies chest pain, shortness of breath, urinary symptoms. GENERAL: Well-appearing, well-nourished, and in no acute distress. HEAD: Normocephalic, atraumatic. CHEST: Clear to auscultation. No respiratory distress. HEART: Regular rate and rhythm. NEURO: Alert and oriented x3. Patient screened in triage and initial orders placed. Additional care and disposition to be based upon diagnostic testing and treatment. <Tony Magdaleno PA-C - Last Filed: 12/25/23 15:34> Source: patient <Tony Magdaleno PA-C - Last Filed: 12/25/23 15:34> Mode of arrival: ambulatory <Tony Magdaleno PA-C - Last Filed: 12/25/23 15:34> Limitations: no limitations <Tony Magdaleno PA-C - Last Filed: 12/25/23 15:34> History of Present Illness HPI narrative: Agree with HPI. sees Dr. Rivera. RUQ pain, peristent since drinking milk. No alleviating factors. <Ferdinand Santos MD - Last Filed: 12/25/23 21:17> Related Data Home Medications: Home Medications Medication Instructions Recorded Confirmed ascorbic acid (vitamin C) 500 mg 500 mg PO DAILY 12/17/18 12/15/23 tablet famotidine 20 mg tablet 20 mg PO DAILY PRN Dyspepsia 12/17/18 12/15/23 multivitamin 1 tablet PO DAILY 12/17/18 12/15/23 acetaminophen 500 mg capsule 500 mg PO Q6H PRN Pain 10/07/21 12/15/23 ferrous sulfate 325 mg (65 mg 325 mg PO DAILY 10/07/21 12/15/23 iron) tablet Probiotic 1 tablet PO DAILY 04/24/23 12/15/23 doxycycline hyclate 1 tablet PO BID 04/24/23 12/15/23 vitamin B12 1 mg-folic acid 0.8 mg 1,000 tablet PO DAILY 07/23/23 12/15/23 tablet megestrol 400 mg/10 mL (10 mL) 400 mg PO DAILY 09/21/23 12/15/23 oral suspension <Tony Magdaleno PA-C - Last Filed: 12/25/23 15:34> Allergies/Adverse Reactions: Allergies Allergy/AdvReac Type Severity Reaction Status Date / Time amoxicillin [From Augmentin] AdvReac Nausea and Verified 12/25/23 15:03 Vomiting clavulanic acid AdvReac Nausea and Verified 12/25/23 15:03 [From Augmentin] Vomiting <Tony Magdaleno PA-C - Last Filed: 12/25/23 15:34> Review of Systems Review of Systems: All systems reviewed & are unremarkable except as noted in HPI and below <Ferdinand Santos MD - Last Filed: 12/25/23 21:17> Constitutional: Constitutional: Reports no additional constitutional complaints <Ferdinand Santos MD - Last Filed: 12/25/23 21:17> Cardiovascular: Cardiovascular: Reports no additional cardiovascular complaints <Ferdinand Santos MD - Last Filed: 12/25/23 21:17> Respiratory: Respiratory: Reports no additional respiratory complaints <Ferdinand Santos MD - Last Filed: 12/25/23 21:17> Gastrointestinal: Gastrointestinal: Reports abdominal pain, Denies diarrhea, Reports nausea and Denies vomiting <Ferdinand Santos MD - Last Filed: 12/25/23 21:17> Genitourinary: Genitourinary: Reports no additional female genitourinary complaints <Ferdinand Santos MD - Last Filed: 12/25/23 21:17> [facility] Past Medical History Medical History: Medical History (Updated 12/25/23 @ 21:17 by Ferdinand Santos MD) Anemia Breast cancer metastasized to bone Chemotherapy induced diarrhea GERD (gastroesophageal reflux disease) History of breast cancer HTN (hypertension) <Tony Magdaleno PA-C - Last Filed: 12/25/23 15:34> Surgical History Surgical History: Surgical History History of lumpectomy Hx of appendectomy <Tony Magdaleno PA-C - Last Filed: 12/25/23 15:34> Family History Family History: Family History Mother Patient's mother is Father Cerebrovascular accident <Tony Magdaleno PA-C - Last Filed: 12/25/23 15:34> Social History Social History: Social History Social History: Surrogate medical decision maker: Moe Marks, spouse. Code status: full code. Smoking status: Never smoker Second hand tobacco smoke exposure: No Alcohol intake: never Drinks per week: 1 Substance use: never Do You Feel Safe in your Home?: Yes Lack of Transportation: No Lack of Food: Never True Current Housing: I Have Housing Concerned About Future Housing: No Difficulty Paying Gas/Electric Bills: No Difficulty Paying for Meds: No Currently Unemployed: No Education: Decline to Answer Difficulty w/ Childcare or Family Care: No Living arrangements: with family Additional living arrangements comments: Lives with in [place]. They have 1 child. Spiritual care concerns: No <Tony Magdaleno PA-C - Last Filed: 12/25/23 15:34> Exam Narrative: GENERAL: Well-appearing, well-nourished, and in no acute distress. HEAD: Normocephalic, atraumatic. ENT: Mucous membranes moist. CHEST: Clear to auscultation. No respiratory distress. HEART: Regular rate and rhythm. Normal peripheral pulses. ABDOMEN: Soft, tender to palpation right upper quadrant with guarding, nondistended. EXTREMITIES: Normal range of motion. No edema. SKIN: Warm, dry, no rash. NEURO: Alert and oriented x3. PSYCH: Normal mood and affect. <Ferdinand Santos MD - Last Filed: 12/25/23 21:17> Course Course Emergency Course: GI consult. Admit for MRCP. NPO. Suspect stone causing obstruction over mass. No evidence of infection at this time so antibiotics will be withheld. <Ferdinand Santos MD - Last Filed: 12/25/23 21:17> Vital Signs Vital signs: Vital Signs Temperature 97.8 F 12/25/23 15:28 Pulse Rate 99 12/25/23 15:28 Respiratory Rate 17 12/25/23 15:28 Blood Pressure 146/56 H 12/25/23 15:28 Pulse Oximetry 100 12/25/23 15:28 Oxygen Delivery Room Air 12/25/23 15:28 Temperature 97.8 F 12/25/23 15:28 Pulse Rate 99 12/25/23 15:28 Respiratory Rate 17 12/25/23 15:28 Blood Pressure 146/56 H 12/25/23 15:28 Pulse Oximetry 100 12/25/23 15:28 Oxygen Delivery Room Air 12/25/23 15:28 <Tony Magdaleno PA-C - Last Filed: 12/25/23 15:34> Vital Signs Temperature 97.8 F 12/25/23 15:28 Pulse Rate 99 12/25/23 15:28 Respiratory Rate 17 12/25/23 15:28 Blood Pressure 146/56 H 12/25/23 15:28 Pulse Oximetry 100 12/25/23 15:28 Oxygen Delivery Room Air 12/25/23 15:28 Temperature 97.8 F 12/25/23 15:28 Pulse Rate 99 12/25/23 15:28 Respiratory Rate 17 12/25/23 15:28 Blood Pressure 146/56 H 12/25/23 15:28 Pulse Oximetry 100 12/25/23 15:28 Oxygen Delivery Room Air 12/25/23 15:28 <Ferdinand Santos MD - Last Filed: 12/25/23 21:17> MDM - Abdominal Pain Lab Data Result diagrams: 12/25/23 16:45 12/25/23 16:45 <Tony Magdaleno PA-C - Last Filed: 12/25/23 15:34> Labs: Lab Results 12/25/23 12/25/23 Range/Units 16:45 17:58 WBC 7.0 (4.5-10.0) K/mm3 RBC 2.94 L (4.2-5.4) M/mm3 Hgb 10.2 L (12.0-15.0) g/dL Hct 30.6 L (37.0-47.0) % MCV 104.1 H (80-100) fl MCH 34.7 H (26-34) pg MCHC 33.3 (32-36) g/dl RDW 15.5 H (11.5-14.5) % Plt Count 173 (150-375) k/mm3 MPV 10.6 H (7.4-10.4) fl Immature Gran % (Auto) 1.6 H (0-0.5) % Neut % (Auto) 87.6 H (45.5-73.1) % Lymph % (Auto) 4.6 L (18.3-44.2) % Jack % (Auto) 6.0 (2.6-8.5) % Eos % (Auto) 0.1 (0-4.4) % Baso % (Auto) 0.1 L (0.2-1.2) % Lymph # (Auto) 0.32 L (0.9-3.2) K/mm3 Jack # (Auto) 0.4 (0.1-0.6) K/mm3 Eos # (Auto) 0.0 (0-0.3) K/mm3 Baso # (Auto) 0.0 (0.0-0.1) K/mm3 Abs Immat Gran (auto) 0.11 H (0.00-0.031) K/mm3 Absolute Neuts (auto) 6.1 (1.3-6.7) K/mm3 Absolute Nucleated RBC 0.000 (0.0-0.012) K/mm3 Nucleated RBC % 0.0 (0.0-0.2) % Sodium 137 (137-145) mmol/L Potassium 4.4 (3.4-5.0) mmol/L Chloride 103 (98-107) mmol/L Carbon Dioxide 23 (22-30) mmol/L Anion Gap 11 (4-12) mmol/L BUN 19 H (7-17) mg/dL Creatinine 1.40 H (0.7-1.0) mg/dL Estim Creat Clear Calc 33 ml/min Estimated GFR 37 L (59 - ) Glucose 122 H (65-110) mg/dL Calcium 11.3 H (8.4-10.2) mg/dL Total Bilirubin 4.1 H (0.2-1.3) mg/dL Direct Bilirubin 1.8 H (0-0.3) mg/dL AST 437 H (14-36) U/L ALT 435 H (6-35) U/L Alkaline Phosphatase 246 H (38-126) U/L Total Protein 7.0 (6.3-8.2) g/dL Albumin 4.3 (3.5-5.1) g/dL Lipase 434 H (23-300) U/L Urine Color Dark yellow (Yellow) Urine Appearance Clear (Clear) Urine pH 8.0 (5.0-9.0) Ur Specific Wendell 1.018 (1.001-1.035) Urine Protein 1+ H (Negative) mg/dL Urine Glucose (UA) Negative (Negative) mg/dL Urine Ketones Trace H (Negative) mg/dL Ur Blood (Man) Negative (Negative) Urine Nitrate Negative (Negative) Urine Bilirubin 2+ H (Negative) Urine Urobilinogen 1.0 (<2.0) mg/dL Add Ur Microanalysis Reviewed Leukocyte Esterase Rfl 1+ H (Negative) KIRSTY/UL Urine RBC 0-2 (0-2) /hpf Urine WBC 0-5 (0-3) /hpf Ur Squamous Epith Cells Occasional (Few) /hpf Urine Bacteria None seen /hpf Urine Casts 6-10 <Tony Madgaleno PA-C - Last Filed: 12/25/23 15:34> Lab Results 12/25/23 12/25/23 Range/Units 16:45 17:58 WBC 7.0 (4.5-10.0) K/mm3 RBC 2.94 L (4.2-5.4) M/mm3 Hgb 10.2 L (12.0-15.0) g/dL Hct 30.6 L (37.0-47.0) % MCV 104.1 H (80-100) fl MCH 34.7 H (26-34) pg MCHC 33.3 (32-36) g/dl RDW 15.5 H (11.5-14.5) % Plt Count 173 (150-375) k/mm3 MPV 10.6 H (7.4-10.4) fl Immature Gran % (Auto) 1.6 H (0-0.5) % Neut % (Auto) 87.6 H (45.5-73.1) % Lymph % (Auto) 4.6 L (18.3-44.2) % Jack % (Auto) 6.0 (2.6-8.5) % Eos % (Auto) 0.1 (0-4.4) % Baso % (Auto) 0.1 L (0.2-1.2) % Lymph # (Auto) 0.32 L (0.9-3.2) K/mm3 Jack # (Auto) 0.4 (0.1-0.6) K/mm3 Eos # (Auto) 0.0 (0-0.3) K/mm3 Baso # (Auto) 0.0 (0.0-0.1) K/mm3 Abs Immat Gran (auto) 0.11 H (0.00-0.031) K/mm3 Absolute Neuts (auto) 6.1 (1.3-6.7) K/mm3 Absolute Nucleated RBC 0.000 (0.0-0.012) K/mm3 Nucleated RBC % 0.0 (0.0-0.2) % Sodium 137 (137-145) mmol/L Potassium 4.4 (3.4-5.0) mmol/L Chloride 103 (98-107) mmol/L Carbon Dioxide 23 (22-30) mmol/L Anion Gap 11 (4-12) mmol/L BUN 19 H (7-17) mg/dL Creatinine 1.40 H (0.7-1.0) mg/dL Estim Creat Clear Calc 33 ml/min Estimated GFR 37 L (59 - ) Glucose 122 H (65-110) mg/dL Calcium 11.3 H (8.4-10.2) mg/dL Total Bilirubin 4.1 H (0.2-1.3) mg/dL Direct Bilirubin 1.8 H (0-0.3) mg/dL AST 437 H (14-36) U/L ALT 435 H (6-35) U/L Alkaline Phosphatase 246 H (38-126) U/L Total Protein 7.0 (6.3-8.2) g/dL Albumin 4.3 (3.5-5.1) g/dL Lipase 434 H (23-300) U/L Urine Color Dark yellow (Yellow) Urine Appearance Clear (Clear) Urine pH 8.0 (5.0-9.0) Ur Specific [place]ell 1.018 (1.001-1.035) Urine Protein 1+ H (Negative) mg/dL Urine Glucose (UA) Negative (Negative) mg/dL Urine Ketones Trace H (Negative) mg/dL Ur Blood (Man) Negative (Negative) Urine Nitrate Negative (Negative) Urine Bilirubin 2+ H (Negative) Urine Urobilinogen 1.0 (<2.0) mg/dL Add Ur Microanalysis Reviewed Leukocyte Esterase Rfl 1+ H (Negative) KIRSTY/UL Urine RBC 0-2 (0-2) /hpf Urine WBC 0-5 (0-3) /hpf Ur Squamous Epith Cells Occasional (Few) /hpf Urine Bacteria None seen /hpf Urine Casts 6-10 <Ferdinand Santos MD - Last Filed: 12/25/23 21:17> Imaging Data Radiologist's impression: ITS Impressions Upper Quadrant Ultrasound 12/25/23 16:11 IMPRESSION: Cholelithiasis. Otherwise, Unremarkable right upper quadrant ultrasound of the abdomen. Abdomen/Pelvis CT 12/25/23 18:37 IMPRESSION: Gallbladder hydrops with indeterminate attenuation within the dilated common b ile duct with extension to the central most intrahepatic ducts. These findings could represent obstruction due to malignancy versus choledocholithiasis for which MRCP/ERCP is recommended, if the patient is clinically able. Additional findings of significant hypovolemia given the appearance of the inferior vena cava. Nonobstructing calculus within the lower pole of the left kidney, increased in size from 12/08/2023 and an interval change from 2022 and 2021. Redemonstration of known metastatic osseous disease, as detailed above These findings were discussed with Dr. Santos, caring for the patient in the ER at 7:00 PM on 12/25/2023 <Tony Magdaleno PA-C - Last Filed: 12/25/23 15:34> ITS Impressions Upper Quadrant Ultrasound 12/25/23 16:11 IMPRESSION: Cholelithiasis. Otherwise, Unremarkable right upper quadrant ultrasound of the abdomen. Abdomen/Pelvis CT 12/25/23 18:37 IMPRESSION: Gallbladder hydrops with indeterminate attenuation within the dilated common bile duct with extension to the central most intrahepatic ducts. These findings could represent obstruction due to malignancy versus choledocho lithiasis for which MRCP/ERCP is recommended, if the patient is clinically able. Additional findings of significant hypovolemia given the appearance of the inferior vena cava. Nonobstructing calculus within the lower pole of the left kidney, increased in size from 12/08/2023 and an interval change from 2022 and 2021. Redemonstration of known metastatic osseous disease, as detailed above These findings were discussed with Dr. Santos, caring for the patient in the ER at 7:00 PM on 12/25/2023 <Ferdinand Santos MD - Last Filed: 12/25/23 21:17> Discharge Plan Discharge Clinical Impression: Abdominal pain, RUQ, Cholelithiasis, Elevated transaminase level <Tony Magdaleno PA-C - Last Filed: 12/25/23 15:34> Patient Disposition: Still a Patient <Tony Magdaleno PA-C - Last Filed: 12/25/23 15:34> Condition: Stable <Tony Magdaleno PA-C - Last Filed: 12/25/23 15:34> Instructions: Antibiotic Form <Tony Magdaleno PA-C - Last Filed: 12/25/23 15:34> Prescriptions: No Action multivitamin Tablet 1 tablet PO DAILY famotidine 20 mg Tablet 20 mg PO DAILY PRN (Reason: Dyspepsia) ascorbic acid (vitamin C) 500 mg Tablet 500 mg PO DAILY Probiotic 124 mg 1 tablet PO DAILY doxycycline hyclate 100 mg 1 tablet PO BID vitamin [id number] acid 1-0.8 mg Tablet 1,000 tablet PO DAILY megestrol 400 mg/10 mL (10 mL) Suspension 400 mg PO DAILY diphenoxylate-atropine [Lomotil] 2.5-0.025 mg tablet 1 tablet PO QID PRN (Reason: diarrhea) Qty: 40 0RF ferrous sulfate 325 mg (65 mg iron) Tablet 325 mg PO DAILY acetaminophen 500 mg Capsule 500 mg PO Q6H PRN (Reason: Pain) lisinopril 20 mg tablet See Rx Instructions .ROUTE .COMPLEX Qty: 90 2RF Dose Instruction: TAKE 1 TABLET BY MOUTH DAILY Rx Instructions: TAKE 1 TABLET BY MOUTH DAILY <Tony Magdaleno PA-C - Last Filed: 12/25/23 15:34> Follow-up/Referrals: Braeden,Puneet Jiménez DO [Physician] - <Tony Magdaleno PA-C - Last Filed: 12/25/23 15:34>
[2023-12-25 16:54] LABS: Basophils Percent Auto 0.1 % (0.2-1.2); Eosinophils Percent Auto 0.1 % (0-4.4); Hematocrit 30.6 % (37.0-47.0); Hemoglobin 10.2 g/dL (12.0-15.0); Immature Granulocyte Absolute 0.11 K/mm3 (0.00-0.031); Immature Granulocyte Percent A 1.6 % (0-0.5); Lymphocytes Absolute Auto 0.32 K/mm3 (0.9-3.2); Lymphocytes Percent Auto 4.6 % (18.3-44.2); Mean Corpuscular HGB Conc 33.3 g/dl (32-36); Mean Corpuscular Hemoglobin 34.7 pg (26-34); Mean Corpuscular Volume 104.1 fl (80-100); Mean Platelet Volume 10.6 fl (7.4-10.4); Monocytes Absolute Auto 0.4 K/mm3 (0.1-0.6); Neutrophils Absolute Auto 6.1 K/mm3 (1.3-6.7); Neutrophils Percent Auto 87.6 % (45.5-73.1); Platelet Count Result 173 k/mm3 (150-375); Red Blood Count 2.94 M/mm3 (4.2-5.4); Red Cell Distribution Width 15.5 % (11.5-14.5)
[2023-12-25 17:06] LABS: Alanine Aminotransferase 435 U/L (6-35); Albumin Level 4.3 g/dL (3.5-5.1); Alkaline Phosphatase 246 U/L (38-126); Anion Gap 11 mmol/L (4-12); Aspartate Amino Transferase 437 U/L (14-36); Bilirubin Direct 1.8 mg/dL (0-0.3); Bilirubin,Total 4.1 mg/dL (0.2-1.3); Blood Urea Nitrogen 19 mg/dL (7-17); Calcium 11.3 mg/dL (8.4-10.2); Carbon Dioxide 23 mmol/L (22-30); Chloride 103 mmol/L (98-107); Estimated CRCL calculation 33 ml/min; Estimated Glomerular Filt Rate 37; Glucose 122 mg/dL (65-110); Lipase 434 U/L (23-300); Potassium 4.4 mmol/L (3.4-5.0); Sodium 137 mmol/L (137-145)
[2023-12-25 18:25] LABS: Add Urine Microscopic? YES; Appearance Urine Clear (Clear); Bacteria Urine None Seen /hpf; Bilirubin Urine 2+ (Negative); Blood Urine Negative (Negative); Color Urine Dark Yellow (Yellow); Glucose Urine UA Negative (Negative); Ketones Urine Trace mg/dL (Negative); Leukocyte Esterase Ur 1+ LEU/UL (Negative); Need Manual Microscopic Reviewed; Nitrate Urine Negative (Negative); Protein Urine 1+ mg/dL (Negative); RBC Urine 0-2 /hpf (0-2); Specific Grav Ur 1.018 (1.001-1.035); Squamous Epithelial Cell Urine Occasional /hpf (Few); WBC Urine 0-5 /hpf (0-3)
[2023-12-25] MEDS: SODIUM CHLORIDE 0.9% IV 1,000 ML 999 ML IV CONT (20:37)
[2023-12-25] MEDS: MORPHINE SULFATE (*CRX) 4 MG/ML INJ IV PUSH (20:37)
[2023-12-25] MEDS: ONDANSETRON INJ 4 MG/2 ML VIAL IV PUSH ×2 (20:37→22:42)
--- NOTE | 2023-12-25 22:15 | ADMGEN ---
This patient, Syeda Marks, was admitted to Medical Room 340-01. Patient/family oriented to hospital policies and general routines including ID bracelet, bed and alarms, visiting hours, pain management, procedures, bathroom and other care routines, personal items, smoking policy, room service/diet, and visiting hours. Information on how to activate the Rapid Response Team has been discussed. Patient/Family are encouraged to report perceived risks to care and to ask questions if they do not understand what they are told or what they should do.
[2023-12-25] MEDS: MORPHINE SULFATE (*CRX) 2 MG/ML INJ IV PUSH (22:37)
[2023-12-25] MEDS: SODIUM CHLORIDE 0.9% IV 1,000 ML 125 ML IV CONT (22:38)
--- NOTE | 2023-12-25 22:52 | P.HP_ITS ---
H&P: HPI History of Present Illness Date/Time: 12/25/23 22:52 Chief Complaint: Right upper quadrant pain Narrative: 73-year-old female who arrives with her sister and her . She lives with her . Complains of right upper quadrant pain on the day of admission 12/25/2023. Became abruptly in onset while she was doing nothing in morning. Pain was persistent and radiated to her right flank. Any type of oral intake exacerbated it. She cannot eat since the morning of admission.. This also happened a few weeks ago but it was transient and she was able to forego seeking professional evaluation. Of note, the patient has a history of GERD, hypertension, breast cancer invasive ductal carcinoma of the right breast diagnosed September 21, 2018. Currently on Enhertu started April 23, 2023 due to recurrence. Your evaluation demonstrated blood pressure 126/76, with mild sinus tachycardia, respiratory rate 22 due to pain, afebrile. Saturating well on room air. Laboratory workup revealed normal WBC, hemoglobin 10.2, transaminitis, hyperbilirubinemia, elevated lipase at 434. CT abdomen pelvis with contrast demonstrated: Gallbladder hydrops with indeterminate attenuation within the dilated common bile duct with extension to the central most intrahepatic ducts. These findings could represent obstruction due to malignancy versus choledocholithiasis for which MRCP/ERCP is recommended, if the patient is clinically able. Additional findings of significant hypovolemia given the appearance of the inferior vena cava. Nonobstructing calculus within the lower pole of the left kidney, increased in size from 12/08/2023 and an interval change from 2022 and 2021. Redemonstration of known metastatic osseous disease, as detailed above GI consulted from ER. Recommended hospitalization. MRCP ordered. Patient was given Zofran, morphine 4 mg IV x1, 1 L normal saline bolus. Hospice service requested to admit the patient on 12/25/2023. Review of Systems Review of Systems: All systems reviewed & are unremarkable except as noted in HPI and below (Subjective) [facility] Past Medical History Medical History (Updated 12/25/23 @ 23:18 by Carlie Farrell MD) Anemia Breast cancer metastasized to bone Chemotherapy induced diarrhea GERD (gastroesophageal reflux disease) History of breast cancer HTN (hypertension) Surgical History Surgical History History of lumpectomy Hx of appendectomy Family History Family History Mother Patient's mother is Father Cerebrovascular accident Social History Social History Social History: Surrogate medical decision maker: Moe Marks, spouse. Code status: full code. Smoking status: Never smoker Second hand tobacco smoke exposure: No Alcohol intake: never Drinks per week: 1 Substance use: never Substance use type: does not use Do You Feel Safe in your Home?: Yes Lack of Transportation: No Lack of Food: Never True Current Housing: I Have Housing Concerned About Future Housing: No Difficulty Paying Gas/Electric Bills: No Difficulty Paying for Meds: No Currently Unemployed: No Education: Associate Degree Difficulty w/ Childcare or Family Care: No Living arrangements: with family Additional living arrangements comments: Lives with in [place]. They have 1 child. Spiritual care concerns: No Meds Home Medications and Allergies Home Medications Medication Instructions Recorded Confirmed Type ascorbic acid (vitamin C) 500 mg 500 mg PO BID 12/17/18 12/25/23 History tablet famotidine 20 mg tablet 20 mg PO DAILY PRN Dyspepsia 12/17/18 12/25/23 History multivitamin 1 tablet PO DAILY 12/17/18 12/25/23 History acetaminophen 500 mg capsule 500 mg PO Q6H PRN Pain 10/07/21 12/25/23 History ferrous sulfate 325 mg (65 mg 325 mg PO BID 10/07/21 12/25/23 History iron) tablet doxycycline hyclate 1 tablet PO BID 04/24/23 12/25/23 History vitamin B12 1 mg-folic acid 0.8 mg 1,000 tablet PO DAILY 07/23/23 12/25/23 History tablet diphenoxylate-atropine 2.5 1 tablet PO PRN PRN Diarrhea 12/25/23 12/25/23 History mg-0.025 mg tablet lisinopril 20 mg tablet 20 mg PO DAILY 12/25/23 12/25/23 History ondansetron 8 mg disintegrating 8 mg PO Q8H PRN Nausea 12/25/23 12/25/23 History tablet Allergies Allergy/AdvReac Type Severity Reaction Status Date / Time amoxicillin [From Augmentin] AdvReac Nausea and Verified 12/25/23 15:03 Vomiting clavulanic acid AdvReac Nausea and Verified 12/25/23 15:03 [From Augmentin] Vomiting Vital Signs Vital Signs - 24 hr 12/25/23 15:28 12/25/23 20:13 12/25/23 20:25 Temperature 97.8 F Pulse Rate 99 116 H 109 H Respiratory Rate 17 23 H 22 H Blood Pressure 146/56 H Pulse Oximetry 100 Oxygen Delivery Room Air 12/25/23 20:31 12/25/23 20:59 12/25/23 21:02 Temperature Pulse Rate 114 H 110 H 112 H Respiratory Rate 20 18 20 Blood Pressure Pulse Oximetry 99 100 Oxygen Delivery 12/25/23 21:15 12/25/23 21:30 12/25/23 21:45 Temperature Pulse Rate 106 H 105 H 123 H Respiratory Rate 26 H 26 H 22 H Blood Pressure Pulse Oximetry 96 98 100 Oxygen Delivery 12/25/23 21:49 12/25/23 22:20 Temperature 97.6 F 98.8 F Pulse Rate 109 H 112 H Respiratory Rate 27 H 18 Blood Pressure 126/76 150/59 H Pulse Oximetry 98 97 Oxygen Delivery Exam Const: General: comfortable and no acute distress Eyes: Pupils: Equal, round and reactive pupils present Neck: Neck: supple Resp: Effort & Inspection: normal respiratory effort Auscultation: clear to auscultation bilaterally Cardio: Rate: regular rate Rhythm: regular rhythm Heart sounds: no gallops, no murmurs and no rubs GI: Inspection: non-distended GI Palp: Yes Soft to palpation Other: Positive Campbell sign : General: Yes bladder normal to palpation Extrem: General: no edema H&P: Results Labs Labs: Short CBC 12/25/23 Range/Units 16:45 WBC 7.0 (4.5-10.0) K/mm3 Hgb 10.2 L (12.0-15.0) g/dL Hct 30.6 L (37.0-47.0) % Plt Count 173 (150-375) k/mm3 BMP 12/25/23 16:45 Sodium 137 Potassium 4.4 Chloride 103 Carbon Dioxide 23 BUN 19 H Creatinine 1.40 H Glucose 122 H Calcium 11.3 H Liver Function 12/25/23 Range/Units 16:45 Total Bilirubin 4.1 H (0.2-1.3) mg/dL Direct Bilirubin 1.8 H (0-0.3) mg/dL AST 437 H (14-36) U/L ALT 435 H (6-35) U/L Alkaline Phosphatase 246 H (38-126) U/L Albumin 4.3 (3.5-5.1) g/dL Urine 12/25/23 Range/Units 17:58 Urine Color Dark yellow (Yellow) Urine Appearance Clear (Clear) Urine pH 8.0 (5.0-9.0) Ur Specific [place] 1.018 (1.001-1.035) Urine Protein 1+ H (Negative) mg/dL Urine Glucose (UA) Negative (Negative) mg/dL Assessment and Plan Assessment and plan (1) Abdominal pain, RUQ: Code(s): R10.11 - Right upper quadrant pain Status: Acute (2) Elevated transaminase level: Code(s): R74.01 - Elevation of levels of liver transaminase levels Status: Acute (3) Choledocholithiasis: Code(s): K80.50 - Calculus of bile duct without cholangitis or cholecystitis without obstruction Status: Acute Plan 73-year-old female who arrives with her sister and her . She lives with her . Complains of right upper quadrant pain on the day of admission 12/25/2023. Became abruptly in onset while she was doing nothing in morning. Pain was persistent and radiated to her right flank. Any type of oral intake exacerbated it. She cannot eat since the morning of admission.. This also happened a few weeks ago but it was transient and she was able to forego seeking professional evaluation. Of note, the patient has a history of GERD, hypertension, breast cancer invasive ductal carcinoma of the right breast diagnosed September 21, 2018. Currently on Enhertu started April 23, 2023 due to recurrence. Your evaluation demonstrated blood pressure 126/76, with mild sinus tachycardia, respiratory rate 22 due to pain, afebrile. Saturating well on room air. Laboratory workup revealed normal WBC, hemoglobin 10.2, transaminitis, hyperbilirubinemia, elevated lipase at 434. CT abdomen pelvis with contrast demonstrated: Gallbladder hydrops with indeterminate attenuation within the dilated common bile duct with extension to the central most intrahepatic ducts. These findings could represent obstruction due to malignancy versus choledocholithiasis for which MRCP/ERCP is recommended, if the patient is clinically able. Additional findings of significant hypovolemia given the appearance of the inferior vena cava. Nonobstructing calculus within the lower pole of the left kidney, increased in size from 12/08/2023 and an interval change from 2022 and 2021. Redemonstration of known metastatic osseous disease, as detailed above GI consulted from ER. Recommended hospitalization. MRCP ordered. Patient was given Zofran, morphine 4 mg IV x1, 1 L normal saline bolus. Hospice service requested to admit the patient on 12/25/2023. ----- NPO except sips with meds. MRCP ordered. GI consultation pending. Zofran p.r.n., morphine p.r.n., fluids. ----- SCDs. Famotidine 20 mg IV b.i.d. Full code. Hospitalist [facility] Advance Care Plan I have confirmed that the patient's Advanced Care Plan is present, code status is documented, or surrogate decision maker is listed in patient medical record.: Yes Medication Reconciliation I have utilized all available resources to obtain, update and review the patients current medications (includes all prescriptions, OTC, herbals, cannabis, and nutritional supplements).: Yes
[2023-12-26] MEDS: FAMOTIDINE 20 MG/2 ML VIAL IV PUSH (00:28)
[2023-12-26 05:42] LABS: Basophils Percent Auto 0.2 % (0.2-1.2); Hematocrit 27.3 % (37.0-47.0); Hemoglobin 9.1 g/dL (12.0-15.0); Immature Granulocyte Absolute 0.09 K/mm3 (0.00-0.031); Immature Granulocyte Percent A 1.4 % (0-0.5); Lymphocytes Absolute Auto 0.49 K/mm3 (0.9-3.2); Lymphocytes Percent Auto 7.7 % (18.3-44.2); Mean Corpuscular HGB Conc 33.3 g/dl (32-36); Mean Corpuscular Hemoglobin 35.4 pg (26-34); Mean Corpuscular Volume 106.2 fl (80-100); Mean Platelet Volume 10.8 fl (7.4-10.4); Monocytes Absolute Auto 0.4 K/mm3 (0.1-0.6); Monocytes Percent Auto 6.2 % (2.6-8.5); Neutrophils Absolute Auto 5.4 K/mm3 (1.3-6.7); Neutrophils Percent Auto 84.5 % (45.5-73.1); Platelet Count Result 155 k/mm3 (150-375); Red Blood Count 2.57 M/mm3 (4.2-5.4); Red Cell Distribution Width 15.7 % (11.5-14.5); White Blood Count 6.3 K/mm3 (4.5-10.0)
[2023-12-26 05:51] LABS: INR 1.1; Prothrombin Time 14.2 Seconds (11.1-14.7)
[2023-12-26 05:52] LABS: Alanine Aminotransferase 372 U/L (6-35); Albumin Level 3.5 g/dL (3.5-5.1); Alkaline Phosphatase 211 U/L (38-126); Anion Gap 7 mmol/L (4-12); Aspartate Amino Transferase 331 U/L (14-36); Bilirubin,Total 4.4 mg/dL (0.2-1.3); Blood Urea Nitrogen 16 mg/dL (7-17); Carbon Dioxide 23 mmol/L (22-30); Chloride 107 mmol/L (98-107); Estimated CRCL calculation 33 ml/min; Estimated Glomerular Filt Rate 37; Glucose 119 mg/dL (65-110); Phosphorus 3.7 mg/dL (2.5-4.5); Potassium 4.3 mmol/L (3.4-5.0); Sodium 137 mmol/L (137-145)
[2023-12-26 06:00] VITALS: BP 128/63; PULSE 109; RESP 20; TEMP 36.9; O2SAT 97
[2023-12-26] MEDS: MORPHINE SULFATE (*CRX) 2 MG/ML INJ IV PUSH ×2 (06:15→22:05)
[2023-12-26] MEDS: ONDANSETRON INJ 4 MG/2 ML VIAL IV PUSH (06:16)
[2023-12-26 06:44] LABS: Anisocytosis 1+; Platelet Estimate Adequate (Adequate); Schistocytes None Seen
[2023-12-26 07:24] VITALS: O2SAT 97
--- NOTE | 2023-12-26 08:31 | PM.IMPN ---
Progress Note: A&P Assessment and Plan (1) Abdominal pain, RUQ: Code(s): R10.11 - Right upper quadrant pain Status: Acute Assessment and Plan: CT abdomen pelvis with contrast demonstrated: Gallbladder hydrops with indeterminate attenuation within the dilated common bile duct with extension to the central most intrahepatic ducts. These findings could represent obstruction due to malignancy versus choledocholithiasis for which MRCP/ERCP is recommended, if the patient is clinically able. Additional findings of significant hypovolemia given the appearance of the inferior vena cava. Nonobstructing calculus within the lower pole of the left kidney, increased in size from 12/08/2023 and an interval change from 2022 and 2021. Redemonstration of known metastatic osseous disease, as detailed above GI consulted from ER. Recommended hospitalization. MRCP ordered. Patient was given Zofran, morphine 4 mg IV x1, 1 L normal saline bolus. (2) Elevated transaminase level: Code(s): R74.01 - Elevation of levels of liver transaminase levels Status: Acute (3) Choledocholithiasis: Code(s): K80.50 - Calculus of bile duct without cholangitis or cholecystitis without obstruction Status: Acute Assessment and Plan: GI consulted ordered, notes reviewed: This patient has clear evidence of cholelithiasis and choledocholithiasis with jaundice, markedly increased AST and ALT levels and an MRCP demonstrating the presence of a common bile duct stone. Will start antibiotics, will check INR tomorrow and will plan ERCP on Thursday. On the other hand, magnesium level is noticed to be low, and suggest correcting it during the weekend. In the meantime, patient can have a regular diet and will be kept NPO after midnight on Thursday for ERCP on Thursday at noon. Plan 73-year-old female who arrives with her sister and her . She lives with her . Complains of right upper quadrant pain on the day of admission 12/25/2023. Became abruptly in onset while she was doing nothing in morning. Pain was persistent and radiated to her right flank. Any type of oral intake exacerbated it. She cannot eat since the morning of admission.. This also happened a few weeks ago but it was transient and she was able to forego seeking professional evaluation. Of note, the patient has a history of GERD, hypertension, breast cancer invasive ductal carcinoma of the right breast diagnosed September 21, 2018. Currently on Enhertu started April 23, 2023. SCDs. Famotidine 20 mg IV b.i.d. Full code. Time Spent With Patient Time with patient: Greater than 35 minutes Subjective Date/time seen: 12/26/23 08:31 Interval history: Right upper quadrant pain Narrative: 73-year-old female who arrives with her sister and her . She lives with her . Complains of right upper quadrant pain on the day of admission 12/25/2023. Became abruptly in onset while she was doing nothing in morning. Pain was persistent and radiated to her right flank. Any type of oral intake exacerbated it. She cannot eat since the morning of admission.. This also happened a few weeks ago but it was transient and she was able to forego seeking professional evaluation. Of note, the patient has a history of GERD, hypertension, breast cancer invasive ductal carcinoma of the right breast diagnosed September 21, 2018. Currently on Enhertu started April 23, 2023 due to recurrence. Blood pressure 126/76, with mild sinus tachycardia, respiratory rate 22 due to pain, afebrile. Saturating well on room air. Laboratory workup revealed normal WBC, hemoglobin 10.2, transaminitis, hyperbilirubinemia, elevated lipase at 434. CT abdomen pelvis with contrast demonstrated: Gallbladder hydrops with indeterminate attenuation within the dilated common bile duct with extension to the central most intrahepatic ducts. These findings could represent obstruction due to malignancy versus choledocholithiasis for which MRCP/ERCP is recommended, if the patient is clinically able. Additional findings of significant hypovolemia given the appearance of the inferior vena cava. Nonobstructing calculus within the lower pole of the left kidney, increased in size from 12/08/2023 and an interval change from 2022 and 2021. Redemonstration of known metastatic osseous disease, as detailed above GI consulted from ER. Recommended hospitalization. MRCP ordered. Patient was given Zofran, morphine 4 mg IV x1, 1 L normal saline bolus. 12/25- pt is seen and examined. GI consulted. GI consult pending- IV- pain control and nausea med prn ordered.pt is pleasant, calm, reports being comfortable- no nausea or pain Review of Systems Review of Systems: All systems reviewed & are unremarkable except as noted in HPI and below (Subjective) Exam Const: General: comfortable and no acute distress Eyes: Pupils: Equal, round and reactive pupils present Neck: Neck: supple Resp: Effort & Inspection: normal respiratory effort Auscultation: clear to auscultation bilaterally Cardio: Rate: regular rate Rhythm: regular rhythm Heart sounds: no gallops, no murmurs and no rubs GI: Inspection: non-distended Other: Positive Campbell sign : General: Yes bladder normal to palpation Bimanual exam- vagina & uterus: bladder normal to palpation Neuro: Cranial nerves: Yes Equal, round and reactive pupils present Extrem: General: no edema Objective Data Vital Signs Vital Signs: Vital Signs - 24 hr 12/25/23 15:28 12/25/23 20:13 12/25/23 20:25 Temperature 97.8 F Pulse Rate 99 116 H 109 H Respiratory Rate 17 23 H 22 H Blood Pressure 146/56 H Pulse Oximetry 100 Oxygen Delivery Room Air Fraction of Inspired Oxygen 12/25/23 20:31 12/25/23 20:59 12/25/23 21:02 Temperature Pulse Rate 114 H 110 H 112 H Respiratory Rate 20 18 20 Blood Pressure Pulse Oximetry 99 100 Oxygen Delivery Fraction of Inspired Oxygen 12/25/23 21:15 12/25/23 21:30 12/25/23 21:45 Temperature Pulse Rate 106 H 105 H 123 H Respiratory Rate 26 H 26 H 22 H Blood Pressure Pulse Oximetry 96 98 100 Oxygen Delivery Fraction of Inspired Oxygen 12/25/23 21:49 12/25/23 22:20 12/26/23 06:00 Temperature 97.6 F 98.8 F 98.4 F Pulse Rate 109 H 112 H 109 H Respiratory Rate 27 H 18 20 Blood Pressure 126/76 150/59 H 128/63 Pulse Oximetry 98 97 97 Oxygen Delivery Fraction of Inspired Oxygen 12/26/23 07:24 Temperature Pulse Rate Respiratory Rate Blood Pressure Pulse Oximetry 97 Oxygen Delivery Room Air Fraction of Inspired Oxygen 21 Intake/Output Intake/Output: Intake & Output 12/23/23 12/24/23 12/25/23 12/26/23 23:59 23:59 23:59 23:59 Intake Total 1000 0 Balance 1000 0 Meds/Results Medications: Active Medications Generic Name Dose Route Start Last Admin Trade Name Freq PRN Reason Stop Dose Admin Famotidine 20 mg 12/25/23 23:20 12/26/23 00:28 Famotidine 20 Mg/2 Ml Vial IV PUSH 20 mg Q12HR AMADO Administration Sodium Chloride 1,000 mls @ 125 mls/hr 12/25/23 20:20 12/25/23 22:38 Normal Saline Iv IV CONT 125 mls/hr .Q8H AMADO Administration Morphine Sulfate 2 mg 12/25/23 20:16 12/26/23 06:15 Morphine Sulfate (*Crx) 2 Mg/Ml Inj IV PUSH 2 mg Q2H PRN Administration Pain Rated 7-10 Ondansetron HCl 4 mg 12/25/23 20:16 12/26/23 06:16 Ondansetron Inj 4 Mg/2 Ml Vial IV PUSH 4 mg Q4H PRN Administration Nausea Radiology Results: ITS Impressions Upper Quadrant Ultrasound 12/25/23 16:11 IMPRESSION: Cholelithiasis. Otherwise, Unremarkable right upper quadrant ultrasound of the abdomen. Abdomen/Pelvis CT 12/25/23 18:37 IMPRESSION: Gallbladder hydrops with indeterminate attenuation within the dilated common bile duct with extension to the central most intrahepatic ducts. These findings could represent obstruction due to malignancy versus choledocholithiasis for which MRCP/ERCP is recommended, if the patient is clinically able. Additional findings of significant hypovolemia given the appearance of the inferior vena cava. Nonobstructing calculus within the lower pole of the left kidney, increased in size from 12/08/2023 and an interval change from 2022 and 2021. Redemonstration of known metastatic osseous disease, as detailed above These findings were discussed with Dr. Santos, caring for the patient in the ER at 7:00 PM on 12/25/2023 Labs Labs: Laboratory Results - last 24 hr 12/25/23 12/25/23 12/26/23 16:45 17:58 05:19 WBC 7.0 6.3 RBC 2.94 L 2.57 L Hgb 10.2 L 9.1 L Hct 30.6 L 27.3 L MCV 104.1 H 106.2 H MCH 34.7 H 35.4 H MCHC 33.3 33.3 RDW 15.5 H 15.7 H Plt Count 173 155 MPV 10.6 H 10.8 H Immature Gran % (Auto) 1.6 H 1.4 H Neut % (Auto) 87.6 H 84.5 H Lymph % (Auto) 4.6 L 7.7 L [place] % (Auto) 6.0 6.2 Eos % (Auto) 0.1 0.0 Baso % (Auto) 0.1 L 0.2 Lymph # (Auto) 0.32 L 0.49 L [place] # (Auto) 0.4 0.4 Eos # (Auto) 0.0 0.0 Baso # (Auto) 0.0 0.0 Abs Immat Gran (auto) 0.11 H 0.09 H Absolute Neuts (auto) 6.1 5.4 Absolute Nucleated RBC 0.000 0.000 Nucleated RBC % 0.0 0.0 Platelet Estimate Adequate Anisocytosis 1+ Schistocytes None seen PT 14.2 INR 1.1 Sodium 137 137 Potassium 4.4 4.3 Chloride 103 107 Carbon Dioxide 23 23 Anion Gap 11 7 BUN 19 H 16 Creatinine 1.40 H 1.40 H Estim Creat Clear Calc 33 33 Estimated GFR 37 L 37 L Glucose 122 H 119 H Calcium 11.3 H 10.0 Phosphorus 3.7 Magnesium 1.0 L Total Bilirubin 4.1 H 4.4 H Direct Bilirubin 1.8 H AST 437 H 331 H ALT 435 H 372 H Alkaline Phosphatase 246 H 211 H Total Protein 7.0 6.0 L Albumin 4.3 3.5 Lipase 434 H Urine Color Dark yellow Urine Appearance Clear Urine pH 8.0 Ur Specific [place] 1.018 Urine Protein 1+ H Urine Glucose (UA) Negative Urine Ketones Trace H Ur Blood (Man) Negative Urine Nitrate Negative Urine Bilirubin 2+ H Urine Urobilinogen 1.0 Add Ur Microanalysis Reviewed Leukocyte Esterase Rfl 1+ H Urine RBC 0-2 Urine WBC 0-5 Ur Squamous Epith Cells Occasional Urine Bacteria None seen Urine Casts 6-10 Quality VTE Prophylaxis VTE prophylaxis: mechanical ordered
[2023-12-26 08:47] LABS: Glucose Point of Care 108 mg/dl (65-105)
[2023-12-26] MEDS: SODIUM CHLORIDE 0.9% IV 1,000 ML 125 ML IV CONT ×2 (08:54→23:50)
--- NOTE | 2023-12-26 10:55 | WPDGICN ---
Assessment and Plan Assessment and plan (1) Choledocholithiasis: Code(s): K80.50 - Calculus of bile duct without cholangitis or cholecystitis without obstruction Status: Acute Assessment and Plan: This patient has clear evidence of cholelithiasis and choledocholithiasis with jaundice, markedly increased AST and ALT levels and an MRCP demonstrating the presence of a common bile duct stone. Will start antibiotics, will check INR tomorrow and will plan ERCP on Thursday. On the other hand, magnesium level is noticed to be low, and suggest correcting it during the weekend. In the meantime, patient can have a regular diet and will be kept NPO after midnight on Thursday for ERCP on Thursday at noon. (2) Abdominal pain, RUQ: Code(s): R10.11 - Right upper quadrant pain Status: Acute (3) Hypomagnesemia: Code(s): E83.42 - Hypomagnesemia Status: Acute GI Consult Note Consult date/time: 12/26/23 10:55 Reason for consult: jaundice - abdominal pain HPI: Syeda Marks is a 73 year old female with a history of metastatic breast cancer to the bones, currently undergoing a rescue chemotherapy regime. She was in her usual state of health and yesterday she felt sudden onset of epigastric and right upper quadrant pain, very intense, and decided to come to the emergency room for evaluation. She was jaundiced and found to have a distended gallbladder with multiple stones, intra and extrahepatic biliary dilatation. She was admitted, provided hydration and analgesia and is currently comfortable and asymptomatic. Review of Systems Review of Systems: All systems reviewed & are unremarkable except as noted in HPI and below PMFSH Past Medical History Medical History (Updated 12/26/23 @ 11:01 by Joshua Elizabeth MD) Anemia Breast cancer metastasized to bone Chemotherapy induced diarrhea GERD (gastroesophageal reflux disease) History of breast cancer HTN (hypertension) Surgical History Surgical History History of lumpectomy Hx of appendectomy Family History Family History Mother Patient's mother is Father Cerebrovascular accident Social History Social History Social History: Surrogate medical decision maker: Moe Marks, spouse. Code status: full code. Smoking status: Never smoker Second hand tobacco smoke exposure: No Alcohol intake: never Drinks per week: 1 Substance use: never Substance use type: does not use Do You Feel Safe in your Home?: Yes Lack of Transportation: No Lack of Food: Never True Current Housing: I Have Housing Concerned About Future Housing: No Difficulty Paying Gas/Electric Bills: No Difficulty Paying for Meds: No Currently Unemployed: No Education: Associate Degree Difficulty w/ Childcare or Family Care: No Living arrangements: with family Additional living arrangements comments: Lives with in [place]. They have 1 child. Spiritual care concerns: No Meds Home Medications and Allergies Home Medications Medication Instructions Recorded Confirmed Type ascorbic acid (vitamin C) 500 mg 500 mg PO BID 12/17/18 12/25/23 History tablet famotidine 20 mg tablet 20 mg PO DAILY PRN Dyspepsia 12/17/18 12/25/23 History multivitamin 1 tablet PO DAILY 12/17/18 12/25/23 History acetaminophen 500 mg capsule 500 mg PO Q6H PRN Pain 10/07/21 12/25/23 History ferrous sulfate 325 mg (65 mg 325 mg PO BID 10/07/21 12/25/23 History iron) tablet doxycycline hyclate 1 tablet PO BID 04/24/23 12/25/23 History vitamin B12 1 mg-folic acid 0.8 mg 1,000 tablet PO DAILY 07/23/23 12/25/23 History tablet diphenoxylate-atropine 2.5 1 tablet PO PRN PRN Diarrhea 12/25/23 12/25/23 History mg-0.025 mg tablet lisinopril 20 mg tablet 20 mg PO DAILY 12/25/23 12/25/23 History ondansetron 8 mg disintegrating 8 mg PO Q8H PRN Nausea 12/25/23 12/25/23 History tablet Allergies Allergy/AdvReac Type Severity Reaction Status Date / Time amoxicillin [From Augmentin] AdvReac Nausea and Verified 12/25/23 15:03 Vomiting clavulanic acid AdvReac Nausea and Verified 12/25/23 15:03 [From Augmentin] Vomiting Vital Signs Vital Signs - 24 hr 12/25/23 15:28 12/25/23 20:13 12/25/23 20:25 Temperature 97.8 F Pulse Rate 99 116 H 109 H Respiratory Rate 17 23 H 22 H Blood Pressure 146/56 H Pulse Oximetry 100 Oxygen Delivery Room Air Fraction of Inspired Oxygen 12/25/23 20:31 12/25/23 20:59 12/25/23 21:02 Temperature Pulse Rate 114 H 110 H 112 H Respiratory Rate 20 18 20 Blood Pressure Pulse Oximetry 99 100 Oxygen Delivery Fraction of Inspired Oxygen 12/25/23 21:15 12/25/23 21:30 12/25/23 21:45 Temperature Pulse Rate 106 H 105 H 123 H Respiratory Rate 26 H 26 H 22 H Blood Pressure Pulse Oximetry 96 98 100 Oxygen Delivery Fraction of Inspired Oxygen 12/25/23 21:49 12/25/23 22:20 12/26/23 06:00 Temperature 97.6 F 98.8 F 98.4 F Pulse Rate 109 H 112 H 109 H Respiratory Rate 27 H 18 20 Blood Pressure 126/76 150/59 H 128/63 Pulse Oximetry 98 97 97 Oxygen Delivery Fraction of Inspired Oxygen 12/26/23 07:24 12/26/23 08:00 Temperature Pulse Rate Respiratory Rate Blood Pressure Pulse Oximetry 97 Oxygen Delivery Room Air Room Air Fraction of Inspired Oxygen 21 Exam Const: General: comfortable Resp: Effort & Inspection: normal respiratory effort and able to speak in complete sentences Auscultation: clear to auscultation bilaterally Cardio: Rate: regular rate Rhythm: regular rhythm GI: GI Palp: No No hepatosplenomegaly present Auscultation: normal bowel sounds Rectal Exam: deferred Skin: Other: moderate jaundice Psych: Appearance: grossly normal Mental Status: mental status grossly normal Results Labs 12/26/23 05:19 12/26/23 05:19 Labs: Short CBC 12/25/23 12/26/23 Range/Units 16:45 05:19 WBC 7.0 6.3 (4.5-10.0) K/mm3 Hgb 10.2 L 9.1 L (12.0-15.0) g/dL Hct 30.6 L 27.3 L (37.0-47.0) % Plt Count 173 155 (150-375) k/mm3 BMP 12/25/23 12/26/23 16:45 05:19 Sodium 137 137 Potassium 4.4 4.3 Chloride 103 107 Carbon Dioxide 23 23 BUN 19 H 16 Creatinine 1.40 H 1.40 H Glucose 122 H 119 H Calcium 11.3 H 10.0 Liver Function 12/25/23 12/26/23 Range/Units 16:45 05:19 Total Bilirubin 4.1 H 4.4 H (0.2-1.3) mg/dL Direct Bilirubin 1.8 H (0-0.3) mg/dL AST 437 H 331 H (14-36) U/L ALT 435 H 372 H (6-35) U/L Alkaline Phosphatase 246 H 211 H (38-126) U/L Albumin 4.3 3.5 (3.5-5.1) g/dL Urine 12/25/23 Range/Units 17:58 Urine Color Dark yellow (Yellow) Urine Appearance Clear (Clear) Urine pH 8.0 (5.0-9.0) Ur Specific [place] 1.018 (1.001-1.035) Urine Protein 1+ H (Negative) mg/dL Urine Glucose (UA) Negative (Negative) mg/dL
[2023-12-26 14:00] VITALS: BP 131/62; PULSE 98; RESP 16; TEMP 36.6; O2SAT 96
[2023-12-26] MEDS: MAGNESIUM SULF 2 GM/WATER 50ML 2 GM/50 ML BAG IVPB (15:57)
[2023-12-26] MEDS: ASCORBIC ACID 500 MG TABLET PO (17:35)
[2023-12-26] MEDS: FERROUS SULFATE 325 MG TABLET DR PO (17:35)
[2023-12-26 20:49] VITALS: BP 149/68; PULSE 91; RESP 18; TEMP 37; O2SAT 94
[2023-12-26] MEDS: DOXYCYCLINE HYCLATE 100 MG TABLET PO (21:49)
[2023-12-27 05:53] LABS: Hematocrit 24.5 % (37.0-47.0); Hemoglobin 8.1 g/dL (12.0-15.0); Mean Corpuscular HGB Conc 33.1 g/dl (32-36); Mean Corpuscular Hemoglobin 35.1 pg (26-34); Mean Corpuscular Volume 106.1 fl (80-100); Mean Platelet Volume 9.9 fl (7.4-10.4); Platelet Count Result 129 k/mm3 (150-375); Red Blood Count 2.31 M/mm3 (4.2-5.4); Red Cell Distribution Width 16.1 % (11.5-14.5); White Blood Count 4.6 K/mm3 (4.5-10.0)
[2023-12-27 06:00] VITALS: BP 132/66; PULSE 100; RESP 18; TEMP 37.1; O2SAT 100
[2023-12-27 06:06] LABS: Anion Gap 7 mmol/L (4-12); Blood Urea Nitrogen 10 mg/dL (7-17); Calcium 9.5 mg/dL (8.4-10.2); Carbon Dioxide 22 mmol/L (22-30); Chloride 108 mmol/L (98-107); Estimated CRCL calculation 42 ml/min; Estimated Glomerular Filt Rate 49; Glucose 80 mg/dL (65-110); Magnesium 1.4 mg/dL (1.6-2.3); Potassium 3.8 mmol/L (3.4-5.0); Sodium 137 mmol/L (137-145)
[2023-12-27 06:09] LABS: INR 1.1; Prothrombin Time 14.3 Seconds (11.1-14.7)
[2023-12-27 07:36] VITALS: O2SAT 97
[2023-12-27] MEDS: SODIUM CHLORIDE 0.9% IV 1,000 ML 125 ML IV CONT ×2 (08:43→19:12)
[2023-12-27] MEDS: CYANOCOBALAMIN 1,000 MCG TABLET 1000 MCG PO (08:45)
[2023-12-27] MEDS: FOLIC ACID 0.4 MG TABLET 0.8 MG PO (08:45)
[2023-12-27] MEDS: DOXYCYCLINE HYCLATE 100 MG TABLET PO ×2 (08:46→20:15)
[2023-12-27] MEDS: FAMOTIDINE 20 MG TABLET PO (08:46)
[2023-12-27] MEDS: ASCORBIC ACID 500 MG TABLET PO ×2 (08:46→17:03)
[2023-12-27] MEDS: MULTIVITAMINS THERAPEUTIC TAB (*BKC) 1 TABLET PO (08:46)
[2023-12-27] MEDS: lisinopriL 20 MG TABLET PO (08:46)
[2023-12-27 08:50] VITALS: O2SAT 97
--- NOTE | 2023-12-27 10:32 | P.PNIM_ITS ---
Progress Note: A&P Assessment and Plan (1) Abdominal pain, RUQ: Code(s): R10.11 - Right upper quadrant pain Status: Acute Assessment and Plan: CT abdomen pelvis with contrast demonstrated: Gallbladder hydrops with indeterminate attenuation within the dilated common bile duct with extension to the central most intrahepatic ducts. These findings could represent obstruction due to malignancy versus choledocholithiasis for which MRCP/ERCP is recommended, if the patient is clinically able. Additional findings of significant hypovolemia given the appearance of the inferior vena cava. Nonobstructing calculus within the lower pole of the left kidney, increased in size from 12/08/2023 and an interval change from 2022 and 2021. Redemonstration of known metastatic osseous disease, as detailed above GI consulted from ER. Recommended hospitalization. MRCP ordered. Patient was given Zofran, morphine 4 mg IV x1, 1 L normal saline bolus. (2) Elevated transaminase level: Code(s): R74.01 - Elevation of levels of liver transaminase levels Status: Acute (3) Choledocholithiasis: Code(s): K80.50 - Calculus of bile duct without cholangitis or cholecystitis without obstruction Status: Acute Assessment and Plan: GI consulted ordered, notes reviewed: This patient has clear evidence of cholelithiasis and choledocholithiasis with jaundice, markedly increased AST and ALT levels and an MRCP demonstrating the presence of a common bile duct stone. Will start antibiotics, will check INR tomorrow and will plan ERCP on Thursday. On the other hand, magnesium level is noticed to be low, and suggest correcting it during the weekend. In the meantime, patient can have a regular diet and will be kept NPO after midnight on Thursday for ERCP on Thursday at noon. - continue antibiotics- nausea/pain control -GI is following- appreciate recommendation Plan 73-year-old female who arrives with her sister and her . She lives with her . Complains of right upper quadrant pain on the day of admission 12/25/2023. Became abruptly in onset while she was doing nothing in morning. Pain was persistent and radiated to her right flank. Any type of oral intake exacerbated it. She cannot eat since the morning of admission.. This also happened a few weeks ago but it was transient and she was able to forego seeking professional evaluation. Of note, the patient has a history of GERD, hypertension, breast cancer invasive ductal carcinoma of the right breast diagnosed September 21, 2018. Currently on En hertu started April 23, 2023. - mg is replaced yesterday and today- monitor SCDs. Famotidine 20 mg IV b.i.d. Full code. Time Spent With Patient Time with patient: Greater than 35 minutes Subjective Date/time seen: 12/27/23 10:32 Interval history: Right upper quadrant pain Narrative: 73-year-old female who arrives with her sister and her . She lives with her . Complains of right upper quadrant pain on the day of admission 12/25/2023. Became abruptly in onset while she was doing nothing in morning. Pain was persistent and radiated to her right flank. Any type of oral intake exacerbated it. She cannot eat since the morning of admission.. This also happened a few weeks ago but it was transient and she was able to forego seeking professional evaluation. Of note, the patient has a history of GERD, hypertension, breast cancer invasive ductal carcinoma of the right breast diagnosed September 21, 2018. Currently on Enhertu started April 23, 2023 due to recurrence. Blood pressure 126/76, with mild sinus tachycardia, respiratory rate 22 due to pain, afebrile. Saturating well on room air. Laboratory workup revealed normal WBC, hemoglobin 10.2, transaminitis, hyperbilirubinemia, elevated lipase at 434. CT abdomen pelvis with contrast demonstrated: Gallbladder hydrops with indeterminate attenuation within the dilated common bile duct with extension to the central most intrahepatic ducts. These findings could represent obstruction due to malignancy versus choledocholithiasis for which MRCP/ERCP is recommended, if the patient is clinically able. Additional findings of significant hypovolemia given the appearance of the inferior vena cava. Nonobstructing calculus within the lower pole of the left kidney, increased in size from 12/08/2023 and an interval change from 2022 and 2021. Redemonstration of known metastatic osseous disease, as detailed above GI consulted from ER. Recommended hospitalization. MRCP ordered. Patient was given Zofran, morphine 4 mg IV x1, 1 L normal saline bolus. 12/25- pt is seen and examined. GI consulted. GI consult pending- IV- pain control and nausea med prn ordered.pt is pleasant, calm, reports being comfortable- no nausea or pain 12/26- ERCP on Thursday- NPO at midnight tonight. Doing well otherwise.No nausea- ambulating well Review of Systems Review of Systems: All systems reviewed & are unremarkable except as noted in HPI and below (Subjective) Exam Const: General: comfortable and no acute distress Eyes: Pupils: Equal, round and reactive pupils present Neck: Neck: supple Resp: Effort & Inspection: normal respiratory effort Auscultation: clear to auscultation bilaterally Cardio: Rate: regular rate Rhythm: regular rhythm Heart sounds: no gallops, no murmurs and no rubs GI: Inspection: non-distended Other: Positive Campbell sign : General: Yes bladder normal to palpation Bimanual exam- vagina & uterus: bladder normal to palpation Neuro: Cranial nerves: Yes Equal, round and reactive pupils present Extrem: General: no edema Objective Data Vital Signs Vital Signs: Vital Signs - 24 hr 12/26/23 14:00 12/26/23 20:49 12/26/23 20:00 Temperature 97.8 F 98.6 F Pulse Rate 98 91 Respiratory Rate 16 18 Blood Pressure 131/62 149/68 H Pulse Oximetry 96 94 Oxygen Delivery Room Air 12/27/23 06:00 12/27/23 07:36 Temperature 98.8 F Pulse Rate 100 Respiratory Rate 18 Blood Pressure 132/66 Pulse Oximetry 100 97 Oxygen Delivery Room Air Intake/Output Intake/Output: Intake & Output 12/24/23 12/25/23 12/26/23 12/27/23 23:59 23:59 23:59 23:59 Intake Total 1000 3000.0 1720 Balance 1000 3000.0 1720 Meds/Results Medications: Active Medications Generic Name Dose Route Start Last Admin Trade Name Freq PRN Reason Stop Dose Admin Acetaminophen 1,000 mg 12/26/23 16:16 Acetaminophen 500 Mg Tablet PO Q8H PRN Pain Ascorbic Acid 500 mg 12/26/23 17:00 12/27/23 08:46 Ascorbic Acid 500 Mg Tablet PO 500 mg BID AMADO Administration Cyanocobalamin 1,000 mcg 12/27/23 09:00 12/27/23 08:45 Cyanocobalamin 1,000 Mcg Tablet PO 1,000 mcg DAILY AMADO Administration Diphenoxylate HCl/Atropine 1 tablet 12/26/23 15:49 Diphenoxylate/Atropine (*Crx) 2.5 Mg Tablet PO PRN PRN Diarrhea Doxycycline Hyclate 100 mg 12/26/23 21:00 12/27/23 08:46 Doxycycline Hyclate 100 Mg Tablet PO 100 mg Q12HR AMADO Administration Famotidine 20 mg 12/27/23 09:00 12/27/23 08:46 Famotidine 20 Mg Tablet PO 20 mg DAILY AMADO Administration Ferrous Sulfate 325 mg 12/26/23 17:00 12/26/23 17:35 Ferrous Sulfate [address] PO 325 mg 1200,1700 AMADO Administration Folic Acid 0.8 mg 12/27/23 09:00 12/27/23 08:45 Folic Acid 0.4 Mg Tablet PO 01/26/24 08:59 0.8 mg DAILY AMADO Administration Sodium Chloride 1,000 mls @ 125 mls/hr 12/25/23 20:20 12/27/23 08:43 Normal Saline Iv IV CONT 125 mls/hr .Q8H AMADO Administration Ceftriaxone Sodium 1 gm in 50 mls @ 100 mls/hr 12/26/23 11:10 12/27/23 08:44 Rocephin 1 Gm/Ns 50 Ml IVPB 100 mls/hr DAILY AMADO Administration Magnesium Sulfate 2 gm in 50 mls @ 25 mls/hr 12/27/23 10:14 Magnesium Sulf 2 Gm/Water 50ml IVPB 12/27/23 12:13 ONCE ONE Lisinopril 20 mg 12/27/23 09:00 12/27/23 08:46 Lisinopril 20 Mg Tablet PO 20 mg DAILY AMADO Administration Loperamide HCl 2 mg 12/26/23 16:18 Loperamide Hcl 2 Mg Capsule PO PRN PRN Diarrhea Magnesium Oxide 400 mg 12/28/23 09:00 Magnesium Oxide 400 Mg Tablet PO DAILY [facility] Morphine Sulfate 2 mg 12/25/23 20:16 12/26/23 22:05 Morphine Sulfate (*Crx) 2 Mg/Ml Inj IV PUSH 2 mg Q2H PRN Administration Pain Rated 7-10 Multivitamins Therapeutic 1 tablet 12/27/23 09:00 12/27/23 08:46 Multivitamins Therapeutic Tab (*Bkc) PO 1 tablet DAILY AMADO Administration Ondansetron HCl 4 mg 12/25/23 20:16 12/26/23 06:16 Ondansetron Inj 4 Mg/2 Ml Vial IV PUSH 4 mg Q4H PRN Administration Nausea Radiology Results: ITS Impressions Upper Quadrant Ultrasound 12/25/23 16:11 IMPRESSION: Cholelithiasis. Otherwise, Unremarkable right upper quadrant ultrasound of the abdomen. Abdomen/Pelvis CT 12/25/23 18:37 IMPRESSION: Gallbladder hydrops with indeterminate attenuation within the dilated common bile duct with extension to the central most intrahepatic ducts. These findings could represent obstruction due to malignancy versus choledocholithiasis for which MRCP/ERCP is recommended, if the patient is clinically able. Additional findings of significant hypovolemia given the appearance of the inferior vena cava. Nonobstructing calculus within the lower pole of the left kidney, increased in size from 12/08/2023 and an interval change from 2022 and 2021. Redemonstration of known metastatic osseous disease, as detailed above These findings were discussed with Dr. Santos, caring for the patient in the ER at 7:00 PM on 12/25/2023 MRCP 12/26/23 08:20 IMPRESSION: 1. Acute interstitial pancreatitis. 2. Choledocholithiasis with intrahepatic and extrahepatic biliary duct dilatation. 3. Cholelithiasis. 4. Widespread sclerotic lesions of bone, consistent with metastatic disease. 5. 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 Labs Labs: Laboratory Results - last 24 hr 12/27/23 05:32 WBC 4.6 RBC 2.31 L Hgb 8.1 L Hct 24.5 L MCV 106.1 H MCH 35.1 H MCHC 33.1 RDW 16.1 H Plt Count 129 L MPV 9.9 PT 14.3 INR 1.1 Sodium 137 Potassium 3.8 Chloride 108 H Carbon Dioxide 22 Anion Gap 7 BUN 10 D Creatinine 1.10 H Estim Creat Clear Calc 42 Estimated GFR 49 L Glucose 80 Calcium 9.5 Magnesium 1.4 L Quality VTE Prophylaxis VTE prophylaxis: mechanical ordered
--- NOTE | 2023-12-27 10:50 | WPDGIPROGNO ---
Progress Note: A&P Assessment and Plan (1) Hypomagnesemia: Code(s): E83.42 - Hypomagnesemia Status: Acute (2) Choledocholithiasis: Code(s): K80.50 - Calculus of bile duct without cholangitis or cholecystitis without obstruction Status: Acute Assessment and Plan: the patient has clear evidence of choledocholithiasis on MRCP. Plan for ERCP tomorrow. She is already getting ceftriaxone and will administered lactated Ringer's and indomethacin suppository prior to the procedure. Surgery to follow the patient post ERCP to planned laparoscopic cholecystectomy. Magnesium level still low although better than yesterday's. Will administer another 2 g of IV magnesium today. Subjective Date/time seen: 12/27/23 10:50 Interval history: Patient doing well, asymptomatic, no fever, no abdominal pain, tolerating food with no problems. Exam Narrative: Unchanged Objective Data Vital Signs Vital Signs: Vital Signs - 24 hr 12/26/23 14:00 12/26/23 20:49 12/26/23 20:00 Temperature 97.8 F 98.6 F Pulse Rate 98 91 Respiratory Rate 16 18 Blood Pressure 131/62 149/68 H Pulse Oximetry 96 94 Oxygen Delivery Room Air 12/27/23 06:00 12/27/23 07:36 Temperature 98.8 F Pulse Rate 100 Respiratory Rate 18 Blood Pressure 132/66 Pulse Oximetry 100 97 Oxygen Delivery Room Air Intake/Output Intake/Output: Intake & Output 12/24/23 12/25/23 12/26/23 12/27/23 23:59 23:59 23:59 23:59 Intake Total 1000 3000.0 1720 Balance 1000 3000.0 1720 Meds/Results Medications: Active Medications Generic Name Dose Route Start Last Admin Trade Name Freq PRN Reason Stop Dose Admin Acetaminophen 1,000 mg 12/26/23 16:16 Acetaminophen 500 Mg Tablet PO Q8H PRN Pain Ascorbic Acid 500 mg 12/26/23 17:00 12/27/23 08:46 Ascorbic Acid 500 Mg Tablet PO 500 mg BID AMADO Administration Cyanocobalamin 1,000 mcg 12/27/23 09:00 12/27/23 08:45 Cyanocobalamin 1,000 Mcg Tablet PO 1,000 mcg DAILY AMADO Administration Diphenoxylate HCl/Atropine 1 tablet 12/26/23 15:49 Diphenoxylate/Atropine (*Crx) 2.5 Mg Tablet PO PRN PRN Diarrhea Doxycycline Hyclate 100 mg 12/26/23 21:00 12/27/23 08:46 Doxycycline Hyclate 100 Mg Tablet PO 100 mg Q12HR AMADO Administration Famotidine 20 mg 12/27/23 09:00 12/27/23 08:46 Famotidine 20 Mg Tablet PO 20 mg DAILY AMADO Administration Ferrous Sulfate 325 mg 12/26/23 17:00 12/26/23 17:35 Ferrous Sulfate [address] PO 325 mg 1200,1700 AMADO Administration Folic Acid 0.8 mg 12/27/23 09:00 12/27/23 08:45 Folic Acid 0.4 Mg Tablet PO 01/26/24 08:59 0.8 mg DAILY AMADO Administration Sodium Chloride 1,000 mls @ 125 mls/hr 12/25/23 20:20 12/27/23 08:43 Normal Saline Iv IV CONT 125 mls/hr .Q8H AMADO Administration Ceftriaxone Sodium 1 gm in 50 mls @ 100 mls/hr 12/26/23 11:10 12/27/23 08:44 Rocephin 1 Gm/Ns 50 Ml IVPB 100 mls/hr DAILY AMADO Administration Magnesium Sulfate 2 gm in 50 mls @ 25 mls/hr 12/27/23 10:14 Magnesium Sulf 2 Gm/Water 50ml IVPB 12/27/23 12:13 ONCE ONE Lisinopril 20 mg 12/27/23 09:00 12/27/23 08:46 Lisinopril 20 Mg Tablet PO 20 mg DAILY AMADO Administration Loperamide HCl 2 mg 12/26/23 16:18 Loperamide Hcl 2 Mg Capsule PO PRN PRN Diarrhea Magnesium Oxide 400 mg 12/28/23 09:00 Magnesium Oxide 400 Mg Tablet PO DAILY AMADO Morphine Sulfate 2 mg 12/25/23 20:16 12/26/23 22:05 Morphine Sulfate (*Crx) 2 Mg/Ml Inj IV PUSH 2 mg Q2H PRN Administration Pain Rated 7-10 Multivitamins Therapeutic 1 tablet 12/27/23 09:00 12/27/23 08:46 Multivitamins Therapeutic Tab (*Bkc) PO 1 tablet DAILY AMADO Administration Ondansetron HCl 4 mg 12/25/23 20:16 12/26/23 06:16 Ondansetron Inj 4 Mg/2 Ml Vial IV PUSH 4 mg Q4H PRN Administration Nausea Radiology Results: ITS Impressions Upper Quadrant Ultrasound 12/25/23 16:11 IMPRESSION: Cholelithiasis. Otherwise, Unremarkable right upper quadrant ultrasound of the abdomen. Abdomen/Pelvis CT 12/25/23 18:37 IMPRESSION: Gallbladder hydrops with indeterminate attenuation within the dilated common bile duct with extension to the central most intrahepatic ducts. These findings could represent obstruction due to malignancy versus choledocholithiasis for which MRCP/ERCP is recommended, if the patient is clinically able. Additional findings of significant hypovolemia given the appearance of the inferior vena cava. Nonobstructing calculus within the lower pole of the left kidney, increased in size from 12/08/2023 and an interval change from 2022 and 2021. Redemonstration of known metastatic osseous disease, as detailed above These findings were discussed with Dr. Santos, caring for the patient in the ER at 7:00 PM on 12/25/2023 MRCP 12/26/23 08:20 IMPRESSION: 1. Acute interstitial pancreatitis. 2. Choledocholithiasis with intrahepatic and extrahepatic biliary duct dilatation. 3. Cholelithiasis. 4. Widespread sclerotic lesions of bone, consistent with metastatic disease. 5. 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 Labs Labs: Laboratory Results - last 24 hr 12/27/23 05:32 WBC 4.6 RBC 2.31 L Hgb 8.1 L Hct 24.5 L MCV 106.1 H MCH 35.1 H MCHC 33.1 RDW 16.1 H Plt Count 129 L MPV 9.9 PT 14.3 INR 1.1 Sodium 137 Potassium 3.8 Chloride 108 H Carbon Dioxide 22 Anion Gap 7 BUN 10 D Creatinine 1.10 H Estim Creat Clear Calc 42 Estimated GFR 49 L Glucose 80 Calcium 9.5 Magnesium 1.4 L
[2023-12-27] MEDS: FERROUS SULFATE 325 MG TABLET DR PO ×2 (11:55→17:03)
[2023-12-27] MEDS: MAGNESIUM SULF 2 GM/WATER 50ML 2 GM/50 ML BAG IVPB (11:56)
--- NOTE | 2023-12-27 15:06 | P.PNAN_ITS ---
Anes - Eval Pre Procedure Procedure: ERCP Date/Time: 12/27/23 15:06 Surgeon: Glenn Pre Op Diagnosis: RUQ Pain w Transaminitis/Cholelithiasis Patient Data Age: 73 Gender: F Height: 1.63 m Weight: 79.1 kg Last Vital Signs Temp 37.1 C 12/27/23 06:00 Pulse 100 12/27/23 06:00 Resp 18 12/27/23 06:00 BP 132/66 12/27/23 06:00 Pulse Ox 97 12/27/23 08:50 O2 Del Method Room Air 12/27/23 08:50 FiO2 21 12/26/23 07:24 Allergies Allergy/AdvReac Type Severity Reaction Status Date / Time amoxicillin [From Augmentin] AdvReac Nausea and Verified 12/25/23 15:03 Vomiting clavulanic acid AdvReac Nausea and Verified 12/25/23 15:03 [From Augmentin] Vomiting Home Medications Medication Instructions Recorded Confirmed Type ascorbic acid (vitamin C) 500 mg 500 mg PO BID 12/17/18 12/25/23 History tablet famotidine 20 mg tablet 20 mg PO DAILY 12/17/18 12/25/23 History multivitamin 1 tablet PO DAILY 12/17/18 12/25/23 History acetaminophen 500 mg capsule 1,000 mg PO Q8H PRN Pain 10/07/21 12/26/23 History ferrous sulfate 325 mg (65 mg 325 mg PO BID 10/07/21 12/25/23 History iron) tablet doxycycline hyclate 1 tablet PO BID 04/24/23 12/25/23 History vitamin B12 1 mg-folic acid 0.8 mg 1,000 tablet PO DAILY 07/23/23 12/25/23 History tablet diphenoxylate-atropine 2.5 1 tablet PO PRN PRN Diarrhea 12/25/23 12/25/23 History mg-0.025 mg tablet lisinopril 20 mg tablet 20 mg PO DAILY 12/25/23 12/25/23 History ondansetron 8 mg disintegrating 8 mg PO Q8H PRN Nausea 12/25/23 12/25/23 History tablet loperamide 2 mg capsule 2 mg PO PRN PRN Diarrhea 12/26/23 12/26/23 History Laboratory Tests 12/27/23 05:32 WBC 4.6 K/mm3 (4.5-10.0) RBC 2.31 L M/mm3 (4.2-5.4) Hgb 8.1 L g/dL (12.0-15.0) Hct 24.5 L % (37.0-47.0) MCV 106.1 H fl (80-100) MCH 35.1 H pg (26-34) MCHC 33.1 g/dl (32-36) RDW 16.1 H % (11.5-14.5) Plt Count 129 L k/mm3 (150-375) MPV 9.9 fl (7.4-10.4) PT 14.3 Seconds (11.1-14.7) INR 1.1 Sodium 137 mmol/L (137-145) Potassium 3.8 mmol/L (3.4-5.0) Chloride 108 H mmol/L (98-107) Carbon Dioxide 22 mmol/L (22-30) Anion Gap 7 mmol/L (4-12) BUN 10 D mg/dL (7-17) Creatinine 1.10 H mg/dL (0.7-1.0) Estim Creat Clear Calc 42 ml/min Estimated GFR 49 L (59 - ) Glucose 80 mg/dL (65-110) Calcium 9.5 mg/dL (8.4-10.2) Magnesium 1.4 L mg/dL (1.6-2.3) Patient hx anesthesia problems: none Family hx anesthesia problems: none Results Review: All pre-operative results and documents have been reviewed as part of the pre- operative evaluation. [facility] Past Medical History Medical History Anemia Breast cancer metastasized to bone Chemotherapy induced diarrhea GERD (gastroesophageal reflux disease) History of breast cancer HTN (hypertension) Surgical History Surgical History History of lumpectomy Hx of appendectomy Family History Family History Mother Patient's mother is Father Cerebrovascular accident Social History Social History Social History: Surrogate medical decision maker: Moe Marks, spouse. Code status: full code. Smoking status: Never smoker Second hand tobacco smoke exposure: No Alcohol intake: never Drinks per week: 1 Substance use: never Substance use type: does not use Do You Feel Safe in your Home?: Yes Lack of Transportation: No Lack of Food: Never True Current Housing: I Have Housing Concerned About Future Housing: No Difficulty Paying Gas/Electric Bills: No Difficulty Paying for Meds: No Currently Unemployed: No Education: Associate Degree Difficulty w/ Childcare or Family Care: No Living arrangements: with family Additional living arrangements comments: Lives with in [place]. They have 1 child. Spiritual care concerns: No Exam Day of Procedure 12/27/23 15:06
[2023-12-27] MEDS: ONDANSETRON INJ 4 MG/2 ML VIAL IV PUSH ×2 (15:23→20:15)
[2023-12-27 15:33] VITALS: BP 144/60; PULSE 93; RESP 18; TEMP 36.4; O2SAT 99
[2023-12-27] MEDS: MORPHINE SULFATE (*CRX) 2 MG/ML INJ IV PUSH ×2 (20:15→22:19)
[2023-12-27 21:31] VITALS: BP 144/61; PULSE 88; RESP 18; TEMP 37; O2SAT 100
[2023-12-28] VITALS (12 sets, daily range): BP systolic 70–154; BP diastolic 36–89; PULSE 71–105; RESP 16–22; TEMP 36.1–36.8; O2SAT 94–100
[2023-12-28] MEDS: ONDANSETRON INJ 4 MG/2 ML VIAL IV PUSH ×2 (00:22→22:12)
[2023-12-28] MEDS: MORPHINE SULFATE (*CRX) 2 MG/ML INJ IV PUSH (00:22)
[2023-12-28] MEDS: SODIUM CHLORIDE 0.9% IV 1,000 ML 125 ML IV CONT (03:09)
[2023-12-28 05:45] LABS: Hematocrit 24.1 % (37.0-47.0); Hemoglobin 7.9 g/dL (12.0-15.0); Mean Corpuscular HGB Conc 32.8 g/dl (32-36); Mean Corpuscular Volume 106.6 fl (80-100); Mean Platelet Volume 10.5 fl (7.4-10.4); Platelet Count Result 146 k/mm3 (150-375); Red Blood Count 2.26 M/mm3 (4.2-5.4); White Blood Count 4.5 K/mm3 (4.5-10.0)
[2023-12-28 05:57] LABS: Potassium 3.5 mmol/L (3.4-5.0)
[2023-12-28 05:59] LABS: Anion Gap 6 mmol/L (4-12); Blood Urea Nitrogen 9 mg/dL (7-17); Calcium 9.3 mg/dL (8.4-10.2); Carbon Dioxide 21 mmol/L (22-30); Chloride 109 mmol/L (98-107); Estimated CRCL calculation 46 ml/min; Estimated Glomerular Filt Rate 55; Glucose 87 mg/dL (65-110); Sodium 136 mmol/L (137-145)
--- NOTE | 2023-12-28 08:12 | PM.IMPN ---
Progress Note: A&P Assessment and Plan (1) Abdominal pain, RUQ: Code(s): R10.11 - Right upper quadrant pain Status: Acute Assessment and Plan: CT abdomen pelvis with contrast demonstrated: Gallbladder hydrops with indeterminate attenuation within the dilated common bile duct with extension to the central most intrahepatic ducts. These findings could represent obstruction due to malignancy versus choledocholithiasis for which MRCP/ERCP is recommended, if the patient is clinically able. Additional findings of significant hypovolemia given the appearance of the inferior vena cava. Nonobstructing calculus within the lower pole of the left kidney, increased in size from 12/08/2023 and an interval change from 2022 and 2021. Redemonstration of known metastatic osseous disease, as detailed above GI consulted from ER. Recommended hospitalization. MRCP ordered. Patient was given Zofran, morphine 4 mg IV x1, 1 L normal saline bolus. (2) Elevated transaminase level: Code(s): R74.01 - Elevation of levels of liver transaminase levels Status: Acute (3) Choledocholithiasis: Code(s): K80.50 - Calculus of bile duct without cholangitis or cholecystitis without obstruction Status: Acute Assessment and Plan: GI consulted ordered, notes reviewed: This patient has clear evidence of cholelithiasis and choledocholithiasis with jaundice, markedly increased AST and ALT levels and an MRCP demonstrating the presence of a common bile duct stone. Will start antibiotics, will check INR tomorrow and will plan ERCP on Thursday. On the other hand, magnesium level is noticed to be low, and suggest correcting it during the weekend. In the meantime, patient can have a regular diet and will be kept NPO after midnight on Thursday for ERCP on Thursday at noon. - continue antibiotics- nausea/pain control -GI is following Plan 73-year-old female who arrives with her sister and her . She lives with her . Complains of right upper quadrant pain on the day of admission 12/25/2023. Became abruptly in onset while she was doing nothing in morning. Pain was persistent and radiated to her right flank. Any type of oral intake exacerbated it. She cannot eat since the morning of admission.. This also happened a few weeks ago but it was transient and she was able to forego seeking professional evaluation. Of note, the patient has a history of GERD, hypertension, breast cancer invasive ductal carcinoma of the right breast diagnosed September 21, 2018. Currently on Enhertu started April 23, 2023. - mg is replaced yesterday and today- monitor SCDs. Famotidine 20 mg IV b.i.d. Full code. Time Spent With Patient Time with patient: Greater than 35 minutes Subjective Date/time seen: 12/28/23 08:12 Interval history: Right upper quadrant pain Narrative: 73-year-old female who arrives with her sister and her . She lives with her . Complains of right upper quadrant pain on the day of admission 12/25/2023. Became abruptly in onset while she was doing nothing in morning. Pain was persistent and radiated to her right flank. Any type of oral intake exacerbated it. She cannot eat since the morning of admission.. This also happened a few weeks ago but it was transient and she was able to forego seeking professional evaluation. Of note, the patient has a history of GERD, hypertension, breast cancer invasive ductal carcinoma of the right breast diagnosed September 21, 2018. Currently on Enhertu started April 23, 2023 due to recurrence. Blood pressure 126/76, with mild sinus tachycardia, respiratory rate 22 due to pain, afebrile. Saturating well on room air. Laboratory workup revealed normal WBC, hemoglobin 10.2, transaminitis, hyperbilirubinemia, elevated lipase at 434. CT abdomen pelvis with contrast demonstrated: Gallbladder hydrops with indeterminate attenuation within the dilated common bile duct with extension to the central most intrahepatic ducts. These findings could represent obstruction due to malignancy versus choledocholithiasis for which MRCP/ERCP is recommended, if the patient is clinically able. Additional findings of significant hypovolemia given the appearance of the inferior vena cava. Nonobstructing calculus within the lower pole of the left kidney, increased in size from 12/08/2023 and an interval change from 2022 and 2021. Redemonstration of known metastatic osseous disease, as detailed above GI consulted from ER. Recommended hospitalization. MRCP ordered. Patient was given Zofran, morphine 4 mg IV x1, 1 L normal saline bolus. 12/25- pt is seen and examined. GI consulted. GI consult pending- IV- pain control and nausea med prn ordered.pt is pleasant, calm, reports being comfortable- no nausea or pain 12/26- ERCP on Thursday- NPO at midnight tonight. Doing well otherwise.No nausea- ambulating well 12/27- ERCP today- no events overnight. doing well- uneventful night. No pain, no nausea Review of Systems Review of Systems: All systems reviewed & are unremarkable except as noted in HPI and below (Subjective) Exam Const: General: comfortable and no acute distress Eyes: Pupils: Equal, round and reactive pupils present Neck: Neck: supple Resp: Effort & Inspection: normal respiratory effort Auscultation: clear to auscultation bilaterally Cardio: Rate: regular rate Rhythm: regular rhythm Heart sounds: no gallops, no murmurs and no rubs GI: Inspection: non-distended Other: Positive Campbell sign : General: Yes bladder normal to palpation Bimanual exam- vagina & uterus: bladder normal to palpation Neuro: Cranial nerves: Yes Equal, round and reactive pupils present Extrem: General: no edema Objective Data Vital Signs Vital Signs: Vital Signs - 24 hr 12/27/23 08:50 12/27/23 15:33 12/27/23 20:15 Temperature 97.5 F L Pulse Rate 93 Respiratory Rate 18 Blood Pressure 144/60 H Pulse Oximetry 97 99 Oxygen Delivery Room Air Room Air 12/27/23 21:31 12/28/23 06:00 12/28/23 07:53 Temperature 98.6 F 98.2 F Pulse Rate 88 87 Respiratory Rate 18 18 Blood Pressure 144/61 H 127/65 Pulse Oximetry 100 97 99 Oxygen Delivery Room Air Intake/Output Intake/Output: Intake & Output 12/25/23 12/26/23 12/27/23 12/28/23 23:59 23:59 23:59 23:59 Intake Total 1000 3000.0 3660 1473.8 Balance 1000 3000.0 3660 1473.8 Meds/Results Medications: Active Medications Generic Name Dose Route Start Last Admin Trade Name Freq PRN Reason Stop Dose Admin Acetaminophen 1,000 mg 12/26/23 16:16 Acetaminophen 500 Mg Tablet PO Q8H PRN Pain Ascorbic Acid 500 mg 12/26/23 17:00 12/27/23 17:03 Ascorbic Acid 500 Mg Tablet PO 500 mg BID AMADO Administration Cyanocobalamin 1,000 mcg 12/27/23 09:00 12/27/23 08:45 Cyanocobalamin 1,000 Mcg Tablet PO 1,000 mcg DAILY AMADO Administration Diphenoxylate HCl/Atropine 1 tablet 12/26/23 15:49 Diphenoxylate/Atropine (*Crx) 2.5 Mg Tablet PO PRN PRN Diarrhea Doxycycline Hyclate 100 mg 12/26/23 21:00 12/27/23 20:15 Doxycycline Hyclate 100 Mg Tablet PO 100 mg Q12HR AMADO Administration Famotidine 20 mg 12/27/23 09:00 12/27/23 08:46 Famotidine 20 Mg Tablet PO 20 mg DAILY AMADO Administration Ferrous Sulfate 325 mg 12/26/23 17:00 12/27/23 17:03 Ferrous Sulfate [address] PO 325 mg 1200,1700 AMADO Administration Folic Acid 0.8 mg 12/27/23 09:00 12/27/23 08:45 Folic Acid 0.4 Mg Tablet PO 01/26/24 08:59 0.8 mg DAILY AMADO Administration Sodium Chloride 1,000 mls @ 125 mls/hr 12/25/23 20:20 12/28/23 03:09 Normal Saline Iv IV CONT 125 mls/hr .Q8H AMADO Administration Ceftriaxone Sodium 1 gm in 50 mls @ 100 mls/hr 12/26/23 11:10 12/27/23 21:06 Rocephin 1 Gm/Ns 50 Ml IVPB Infused DAILY AMADO Infusion Lisinopril 20 mg 12/27/23 09:00 12/27/23 08:46 Lisinopril 20 Mg Tablet PO 20 mg DAILY AMADO Administration Loperamide HCl 2 mg 12/26/23 16:18 Loperamide Hcl 2 Mg Capsule PO PRN PRN Diarrhea Magnesium Oxide 400 mg 12/28/23 09:00 Magnesium Oxide 400 Mg Tablet PO DAILY AMADO Morphine Sulfate 2 mg 12/25/23 20:16 12/28/23 00:22 Morphine Sulfate (*Crx) 2 Mg/Ml Inj IV PUSH 2 mg Q2H PRN Administration Pain Rated 7-10 Multivitamins Therapeutic 1 tablet 12/27/23 09:00 12/27/23 08:46 Multivitamins Therapeutic Tab (*Bkc) PO 1 tablet DAILY AMADO Administration Ondansetron HCl 4 mg 12/25/23 20:16 12/28/23 00:22 Ondansetron Inj 4 Mg/2 Ml Vial IV PUSH 4 mg Q4H PRN Administration Nausea Radiology Results: ITS Impressions Upper Quadrant Ultrasound 12/25/23 16:11 IMPRESSION: Cholelithiasis. Otherwise, Unremarkable right upper quadrant ultrasound of the abdomen. Abdomen/Pelvis CT 12/25/23 18:37 IMPRESSION: Gallbladder hydrops with indeterminate attenuation within the dilated common bile duct with extension to the central most intrahepatic ducts. These findings could represent obstruction due to malignancy versus choledocholithiasis for which MRCP/ERCP is recommended, if the patient is clinically able. Additional findings of significant hypovolemia given the appearance of the inferior vena cava. Nonobstructing calculus within the lower pole of the left kidney, increased in size from 12/08/2023 and an interval change from 2022 and 2021. Redemonstration of known metastatic osseous disease, as detailed above These findings were discussed with Dr. Santos, caring for the patient in the ER at 7:00 PM on 12/25/2023 MRCP 12/26/23 08:20 IMPRESSION: 1. Acute interstitial pancreatitis. 2. Choledocholithiasis with intrahepatic and extrahepatic biliary duct dilatation. 3. Cholelithiasis. 4. Widespread sclerotic lesions of bone, consistent with metastatic disease. 5. 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 Labs Labs: Laboratory Results - last 24 hr 12/28/23 05:13 WBC 4.5 RBC 2.26 L Hgb 7.9 L Hct 24.1 L MCV 106.6 H MCH 35.0 H MCHC 32.8 RDW 16.0 H Plt Count 146 L MPV 10.5 H Sodium 136 L Potassium 3.5 Chloride 109 H Carbon Dioxide 21 L Anion Gap 6 BUN 9 Creatinine 1.00 Estim Creat Clear Calc 46 Estimated GFR 55 L Glucose 87 Calcium 9.3 Quality VTE Prophylaxis VTE prophylaxis: mechanical ordered
[2023-12-28] MEDS: lisinopriL 20 MG TABLET PO (08:46)
[2023-12-28] MEDS: LACTATED RINGERS 1,000 ML 150 ML IV CONT ×2 (12:32→14:23)
[2023-12-28] MEDS: INDOMETHACIN 50 MG SUPP.RECT 100 MG RECTAL (12:33)
--- NOTE | 2023-12-28 12:33 | P.PNAN_ITS ---
Anes - Initial Pre Proc Eval Procedure: Operation Date: 12/28/23 12:30 Proposed Procedures p Endoscopic Retro Cholangiopancreatogram - Joshua Elizabeth MD Date/Time: 12/28/23 12:33 Surgeon: Carlie Farrell MD Pre Op Diagnosis: RUQ Pain w Transaminitis/Cholelithiasis Patient Data Age: 73 Gender: F Height: 1.63 m Weight: 79.1 kg Last Vital Signs Temp 36.2 C L 12/28/23 12:29 Pulse 103 H 12/28/23 12:29 Resp 20 12/28/23 12:29 BP 154/77 H 12/28/23 12:29 Pulse Ox 98 12/28/23 12:29 O2 Del Method Room Air 12/28/23 12:29 FiO2 21 12/26/23 07:24 Allergies Allergy/AdvReac Type Severity Reaction Status Date / Time amoxicillin [From Augmentin] AdvReac Nausea and Verified 12/25/23 15:03 Vomiting clavulanic acid AdvReac Nausea and Verified 12/25/23 15:03 [From Augmentin] Vomiting Home Medications Medication Instructions Recorded Confirmed Type ascorbic acid (vitamin C) 500 mg 500 mg PO BID 12/17/18 12/25/23 History tablet famotidine 20 mg tablet 20 mg PO DAILY 12/17/18 12/25/23 History multivitamin 1 tablet PO DAILY 12/17/18 12/25/23 History acetaminophen 500 mg capsule 1,000 mg PO Q8H PRN Pain 10/07/21 12/26/23 History ferrous sulfate 325 mg (65 mg 325 mg PO BID 10/07/21 12/25/23 History iron) tablet doxycycline hyclate 1 tablet PO BID 04/24/23 12/25/23 History vitamin B12 1 mg-folic acid 0.8 mg 1,000 tablet PO DAILY 07/23/23 12/25/23 History tablet diphenoxylate-atropine 2.5 1 tablet PO PRN PRN Diarrhea 12/25/23 12/25/23 History mg-0.025 mg tablet lisinopril 20 mg tablet 20 mg PO DAILY 12/25/23 12/25/23 History ondansetron 8 mg disintegrating 8 mg PO Q8H PRN Nausea 12/25/23 12/25/23 History tablet loperamide 2 mg capsule 2 mg PO PRN PRN Diarrhea 12/26/23 12/26/23 History Laboratory Tests 12/28/23 05:13 WBC 4.5 K/mm3 (4.5-10.0) RBC 2.26 L M/mm3 (4.2-5.4) Hgb 7.9 L g/dL (12.0-15.0) Hct 24.1 L % (37.0-47.0) MCV 106.6 H fl (80-100) MCH 35.0 H pg (26-34) MCHC 32.8 g/dl (32-36) RDW 16.0 H % (11.5-14.5) Plt Count 146 L k/mm3 (150-375) MPV 10.5 H fl (7.4-10.4) Sodium 136 L mmol/L (137-145) Potassium 3.5 mmol/L (3.4-5.0) Chloride 109 H mmol/L (98-107) Carbon Dioxide 21 L mmol/L (22-30) Anion Gap 6 mmol/L (4-12) BUN 9 mg/dL (7-17) Creatinine 1.00 mg/dL (0.7-1.0) Estim Creat Clear Calc 46 ml/min Estimated GFR 55 L (59 - ) Glucose 87 mg/dL (65-110) Calcium 9.3 mg/dL (8.4-10.2) Patient hx anesthesia problems: none Family hx anesthesia problems: none Results Review: All pre-operative results and documents have been reviewed as part of the pre- operative evaluation. [facility] Past Medical History Medical History Anemia Breast cancer metastasized to bone Chemotherapy induced diarrhea GERD (gastroesophageal reflux disease) History of breast cancer HTN (hypertension) Surgical History Surgical History History of lumpectomy Hx of appendectomy Family History Family History Mother Patient's mother is Father Cerebrovascular accident Social History Social History Social History: Surrogate medical decision maker: Moe Marks, spouse. Code status: full code. Smoking status: Never smoker Second hand tobacco smoke exposure: No Alcohol intake: never Drinks per week: 1 Substance use: never Substance use type: does not use Do You Feel Safe in your Home?: Yes Lack of Transportation: No Lack of Food: Never True Current Housing: I Have Housing Concerned About Future Housing: No Difficulty Paying Gas/Electric Bills: No Difficulty Paying for Meds: No Currently Unemployed: No Education: Associate Degree Difficulty w/ Childcare or Family Care: No Living arrangements: with family Additional living arrangements comments: Lives with in [place]. They have 1 child. Spiritual care concerns: No Anes - Eval Final PreProcedure Day of Procedure 12/28/23 12:33 Patient weight: overweight Heart: regular rate and rhythm Lungs: decreased breath sounds Airway: Mallampati scale class II and special considerations poor dentition Neurological: alert and oriented Last oral intake: >/= 8 hours ASA classification: IV Emergent: no Anesthetic plan: proceed Anesthesia type and monitoring: general ETT and standard monitoring Results Review: All pre-operative results and documents have been reviewed as part of the pre- operative evaluation. Informed Consent: The patient's anesthetic plan and its attendant risks and benefits were discussed with the patient/family/POA. Questions were solicited and answers provided to the satisfaction of the patient/family/POA.
--- NOTE | 2023-12-28 12:59 | PM.IMHP ---
H&P: HPI History of Present Illness Date/Time: 12/28/23 12:59 Chief Complaint: Abdominal pain Narrative: patient evaluated over the weekend with a history is metastatic breast cancer, who had a new onset epigastric/right upper quadrant pain. Multiple gallstones were seen on imaging studies, including a common bile duct stone documented on MRCP. Down here for ERCP, sphincterotomy stone extraction. [facility] Past Medical History Medical History Anemia Breast cancer metastasized to bone Chemotherapy induced diarrhea GERD (gastroesophageal reflux disease) History of breast cancer HTN (hypertension) Surgical History Surgical History History of lumpectomy Hx of appendectomy Family History Family History Mother Patient's mother is Father Cerebrovascular accident Social History Social History Social History: Surrogate medical decision maker: Moe Marks, spouse. Code status: full code. Smoking status: Never smoker Second hand tobacco smoke exposure: No Alcohol intake: never Drinks per week: 1 Substance use: never Substance use type: does not use Do You Feel Safe in your Home?: Yes Lack of Transportation: No Lack of Food: Never True Current Housing: I Have Housing Concerned About Future Housing: No Difficulty Paying Gas/Electric Bills: No Difficulty Paying for Meds: No Currently Unemployed: No Education: Associate Degree Difficulty w/ Childcare or Family Care: No Living arrangements: with family Additional living arrangements comments: Lives with in [place]. They have 1 child. Spiritual care concerns: No Meds Home Medications and Allergies Home Medications Medication Instructions Recorded Confirmed Type ascorbic acid (vitamin C) 500 mg 500 mg PO BID 12/17/18 12/25/23 History tablet famotidine 20 mg tablet 20 mg PO DAILY 12/17/18 12/25/23 History multivitamin 1 tablet PO DAILY 12/17/18 12/25/23 History acetaminophen 500 mg capsule 1,000 mg PO Q8H PRN Pain 10/07/21 12/26/23 History ferrous sulfate 325 mg (65 mg 325 mg PO BID 10/07/21 12/25/23 History iron) tablet doxycycline hyclate 1 tablet PO BID 04/24/23 12/25/23 History vitamin B12 1 mg-folic acid 0.8 mg 1,000 tablet PO DAILY 07/23/23 12/25/23 History tablet diphenoxylate-atropine 2.5 1 tablet PO PRN PRN Diarrhea 12/25/23 12/25/23 History mg-0.025 mg tablet lisinopril 20 mg tablet 20 mg PO DAILY 12/25/23 12/25/23 History ondansetron 8 mg disintegrating 8 mg PO Q8H PRN Nausea 12/25/23 12/25/23 History tablet loperamide 2 mg capsule 2 mg PO PRN PRN Diarrhea 12/26/23 12/26/23 History Allergies Allergy/AdvReac Type Severity Reaction Status Date / Time amoxicillin [From Augmentin] AdvReac Nausea and Verified 12/25/23 15:03 Vomiting clavulanic acid AdvReac Nausea and Verified 12/25/23 15:03 [From Augmentin] Vomiting Vital Signs Vital Signs - 24 hr 12/27/23 15:33 12/27/23 20:15 12/27/23 21:31 Temperature 97.5 F L 98.6 F Pulse Rate 93 88 Respiratory Rate 18 18 Blood Pressure 144/60 H 144/61 H Pulse Oximetry 99 100 Oxygen Delivery Room Air 12/28/23 06:00 12/28/23 07:53 12/28/23 08:40 Temperature 98.2 F Pulse Rate 87 Respiratory Rate 18 Blood Pressure 127/65 Pulse Oximetry 97 99 Oxygen Delivery Room Air Room Air 12/28/23 12:29 Temperature 97.2 F L Pulse Rate 103 H Respiratory Rate 20 Blood Pressure 154/77 H Pulse Oximetry 98 Oxygen Delivery Room Air H&P: Results Labs Labs: Short CBC 12/28/23 Range/Units 05:13 WBC 4.5 (4.5-10.0) K/mm3 Hgb 7.9 L (12.0-15.0) g/dL Hct 24.1 L (37.0-47.0) % Plt Count 146 L (150-375) k/mm3 BMP 12/28/23 05:13 Sodium 136 L Potassium 3.5 Chloride 109 H Carbon Dioxide 21 L BUN 9 Creatinine 1.00 Glucose 87 Calcium 9.3 Assessment and Plan Assessment and plan (1) Choledocholithiasis: Code(s): K80.50 - Calculus of bile duct without cholangitis or cholecystitis without obstruction Status: Acute Assessment and Plan: Will proceed with ERCP. Indomethacin suppository 100 g administered and will administer 1 or 2 L of lactated Ringer's during the procedure and after. (2) Cholelithiasis: Code(s): K80.20 - Calculus of gallbladder without cholecystitis without obstruction Status: Acute
--- NOTE | 2023-12-28 14:44 | SUR.PHASEII ---
1423 Order for 2nd bag of Lactated Ringer ordered by Dr. Elizabeth. Orders to continue LR on the medical floor.
--- NOTE | 2023-12-28 15:48 | WPDGIPROGNO ---
Progress Note: A&P Assessment and Plan (1) Choledocholithiasis: Code(s): K80.50 - Calculus of bile duct without cholangitis or cholecystitis without obstruction Status: Acute (2) Cholelithiasis: Code(s): K80.20 - Calculus of gallbladder without cholecystitis without obstruction Status: Acute Assessment and Plan: Patient's common bile duct is clear from stones. She will need laparoscopic cholecystectomy. Surgery already contacted will see her today. She received a 2nd round of magnesium due to hypomagnesemia. We will check levels tomorrow a.m.. Subjective Date/time seen: 12/28/23 15:48 Interval history: The patient underwent ERCP sphincterotomy and passage of 12 mm balloon 2 hours ago. There were no residual common bile duct stones. Objective Data Vital Signs Vital Signs: Vital Signs - 24 hr 12/27/23 20:15 12/27/23 21:31 12/28/23 06:00 Temperature 98.6 F 98.2 F Pulse Rate 88 87 Respiratory Rate 18 18 Blood Pressure 144/61 H 127/65 Pulse Oximetry 100 97 Oxygen Delivery Room Air Oxygen Flow Rate 12/28/23 07:53 12/28/23 08:40 12/28/23 12:29 Temperature 97.2 F L Pulse Rate 103 H Respiratory Rate 20 Blood Pressure 154/77 H Pulse Oximetry 99 98 Oxygen Delivery Room Air Room Air Room Air Oxygen Flow Rate 12/28/23 14:13 12/28/23 14:23 12/28/23 14:33 Temperature 97.2 F L Pulse Rate 76 77 71 Respiratory Rate 16 18 21 H Blood Pressure 80/39 L 70/36 L 96/52 L Pulse Oximetry 100 100 100 Oxygen Delivery Simple Face Mask Simple Face Mask Simple Face Mask Oxygen Flow Rate 15 10 4 12/28/23 14:43 12/28/23 14:53 12/28/23 15:03 Temperature Pulse Rate 98 104 H 105 H Respiratory Rate 22 H 18 19 Blood Pressure 120/66 124/89 117/75 Pulse Oximetry 98 98 95 Oxygen Delivery Room Air Room Air Room Air Oxygen Flow Rate 12/28/23 15:32 Temperature 96.9 F L Pulse Rate 105 H Respiratory Rate 18 Blood Pressure 143/59 H Pulse Oximetry 94 Oxygen Delivery Oxygen Flow Rate Intake/Output Intake/Output: Intake & Output 12/25/23 12/26/23 12/27/23 10/28/24 23:59 23:59 23:59 23:59 Intake Total 1000 3000.0 3660 2573.8 Balance 1000 3000.0 3660 2573.8 Meds/Results Medications: Active Medications Generic Name Dose Route Start Last Admin Trade Name Freq PRN Reason Stop Dose Admin Acetaminophen 1,000 mg 12/26/23 16:16 Acetaminophen 500 Mg Tablet PO Q8H PRN Pain Ascorbic Acid 500 mg 12/26/23 17:00 12/27/23 17:03 Ascorbic Acid 500 Mg Tablet PO 500 mg BID AMADO Administration Cyanocobalamin 1,000 mcg 12/27/23 09:00 12/27/23 08:45 Cyanocobalamin 1,000 Mcg Tablet PO 1,000 mcg DAILY AMADO Administration Diphenoxylate HCl/Atropine 1 tablet 12/26/23 15:49 Diphenoxylate/Atropine (*Crx) 2.5 Mg Tablet PO PRN PRN Diarrhea Doxycycline Hyclate 100 mg 12/26/23 21:00 12/27/23 20:15 Doxycycline Hyclate 100 Mg Tablet PO 100 mg Q12HR AMADO Administration Famotidine 20 mg 12/27/23 09:00 12/27/23 08:46 Famotidine 20 Mg Tablet PO 20 mg DAILY AMADO Administration Ferrous Sulfate 325 mg 12/26/23 17:00 12/27/23 17:03 Ferrous Sulfate [address] PO 325 mg 1200,1700 AMADO Administration Folic Acid 0.8 mg 12/27/23 09:00 12/27/23 08:45 Folic Acid 0.4 Mg Tablet PO 01/26/24 08:59 0.8 mg DAILY AMADO Administration Ceftriaxone Sodium 1 gm in 50 mls @ 100 mls/hr 12/26/23 11:10 12/28/23 08:44 Rocephin 1 Gm/Ns 50 Ml IVPB 100 mls/hr DAILY AMADO Administration Lactated Ringer's 1,000 mls @ 120 mls/hr 12/28/23 15:05 Lr - Lactated Ringers Iv IV CONT .Q8H20M AMADO Lisinopril 20 mg 12/27/23 09:00 12/28/23 08:46 Lisinopril 20 Mg Tablet PO 20 mg DAILY AMADO Administration Loperamide HCl 2 mg 12/26/23 16:18 Loperamide Hcl 2 Mg Capsule PO PRN PRN Diarrhea Magnesium Oxide 400 mg 12/28/23 09:00 Magnesium Oxide 400 Mg Tablet PO DAILY [facility] Metronidazole 500 mg 12/28/23 14:00 Metronidazole 500 Mg Tablet PO Q8HR [facility] Morphine Sulfate 2 mg 12/25/23 20:16 12/28/23 00:22 Morphine Sulfate (*Crx) 2 Mg/Ml Inj IV PUSH 2 mg Q2H PRN Administration Pain Rated 7-10 Multivitamins Therapeutic 1 tablet 12/27/23 09:00 12/27/23 08:46 Multivitamins Therapeutic Tab (*Bkc) PO 1 tablet DAILY [facility] Administration Ondansetron HCl 4 mg 12/25/23 20:16 12/28/23 00:22 Ondansetron Inj 4 Mg/2 Ml Vial IV PUSH 4 mg Q4H PRN Administration Nausea Pantoprazole Sodium 40 mg 12/29/23 09:00 Pantoprazole 40 Mg Tablet PO QAM [facility] Radiology Results: ITS Impressions Upper Quadrant Ultrasound 12/25/23 16:11 IMPRESSION: Cholelithiasis. Otherwise, Unremarkable right upper quadrant ultrasound of the abdomen. Abdomen/Pelvis CT 12/25/23 18:37 IMPRESSION: Gallbladder hydrops with indeterminate attenuation within the dilated common bile duct with extension to the central most intrahepatic ducts. These findings could represent obstruction due to malignancy versus choledocholithiasis for which MRCP/ERCP is recommended, if the patient is clinically able. Additional findings of significant hypovolemia given the appearance of the inferior vena cava. Nonobstructing calculus within the lower pole of the left kidney, increased in size from 12/08/2023 and an interval change from 2022 and 2021. Redemonstration of known metastatic osseous disease, as detailed above These findings were discussed with Dr. Santos, caring for the patient in the ER at 7:00 PM on 12/25/2023 MRCP 12/26/23 08:20 IMPRESSION: 1. Acute interstitial pancreatitis. 2. Choledocholithiasis with intrahepatic and extrahepatic biliary duct dilatation. 3. Cholelithiasis. 4. Widespread sclerotic lesions of bone, consistent with metastatic disease. 5. 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 Endo Retro Cholangiopancreatogram 12/28/23 14:25 IMPRESSION: 1. Choledocholithiasis. Please refer to the ERCP procedure note for additional details. Labs Labs: Laboratory Results - last 24 hr 12/28/23 05:13 WBC 4.5 RBC 2.26 L Hgb 7.9 L Hct 24.1 L MCV 106.6 H MCH 35.0 H MCHC 32.8 RDW 16.0 H Plt Count 146 L MPV 10.5 H Sodium 136 L Potassium 3.5 Chloride 109 H Carbon Dioxide 21 L Anion Gap 6 BUN 9 Creatinine 1.00 Estim Creat Clear Calc 46 Estimated GFR 55 L Glucose 87 Calcium 9.3
[2023-12-28] MEDS: FOLIC ACID 0.4 MG TABLET 0.8 MG PO (15:57)
[2023-12-28] MEDS: DOXYCYCLINE HYCLATE 100 MG TABLET PO ×2 (15:58→21:00)
[2023-12-28] MEDS: MAGNESIUM OXIDE 400 MG TABLET PO (15:58)
[2023-12-28] MEDS: CYANOCOBALAMIN 1,000 MCG TABLET 1000 MCG PO (15:58)
[2023-12-28] MEDS: MULTIVITAMINS THERAPEUTIC TAB (*BKC) 1 TABLET PO (15:58)
[2023-12-28] MEDS: ASCORBIC ACID 500 MG TABLET PO (15:58)
[2023-12-28] MEDS: FAMOTIDINE 20 MG TABLET PO (15:58)
[2023-12-28] MEDS: metroNIDAZOLE 500 MG TABLET PO ×2 (15:59→21:00)
[2023-12-28] MEDS: FERROUS SULFATE 325 MG TABLET DR PO (15:59)
[2023-12-28] MEDS: LACTATED RINGERS 1,000 ML 120 ML IV CONT (15:59)
[2023-12-29] MEDS: LACTATED RINGERS 1,000 ML 120 ML IV CONT ×3 (02:26→19:37)
[2023-12-29] MEDS: metroNIDAZOLE 500 MG TABLET PO ×3 (05:18→21:10)
[2023-12-29 05:25] VITALS: BP 132/66; PULSE 87; RESP 16; TEMP 36.7; O2SAT 97
[2023-12-29] MEDS: DIPHENOXYLATE/ATROPINE (*CRX) 2.5 MG TABLET 1 TABLET PO ×3 (06:21→23:47)
[2023-12-29 06:32] LABS: Hematocrit 27.4 % (37.0-47.0); Hemoglobin 8.7 g/dL (12.0-15.0); Mean Corpuscular HGB Conc 31.8 g/dl (32-36); Mean Corpuscular Hemoglobin 35.8 pg (26-34); Mean Corpuscular Volume 112.8 fl (80-100); Mean Platelet Volume 10.3 fl (7.4-10.4); Platelet Count Result 180 k/mm3 (150-375); Red Blood Count 2.43 M/mm3 (4.2-5.4); Red Cell Distribution Width 16.2 % (11.5-14.5); White Blood Count 5.2 K/mm3 (4.5-10.0)
[2023-12-29 06:46] LABS: Potassium 3.6 mmol/L (3.4-5.0)
[2023-12-29 06:52] LABS: Anion Gap 7 mmol/L (4-12); Blood Urea Nitrogen 10 mg/dL (7-17); Calcium 9.6 mg/dL (8.4-10.2); Carbon Dioxide 22 mmol/L (22-30); Chloride 109 mmol/L (98-107); Estimated CRCL calculation 50 ml/min; Estimated Glomerular Filt Rate > 60; Glucose 80 mg/dL (65-110); Magnesium 1.3 mg/dL (1.6-2.3); Sodium 138 mmol/L (137-145)
[2023-12-29] MEDS: FAMOTIDINE 20 MG TABLET PO (08:52)
[2023-12-29] MEDS: PANTOPRAZOLE 40 MG TABLET PO (08:52)
[2023-12-29] MEDS: CYANOCOBALAMIN 1,000 MCG TABLET 1000 MCG PO (08:52)
[2023-12-29] MEDS: MULTIVITAMINS THERAPEUTIC TAB (*BKC) 1 TABLET PO (08:52)
[2023-12-29] MEDS: LOPERAMIDE HCL 2 MG CAPSULE PO (08:52)
[2023-12-29] MEDS: FOLIC ACID 0.4 MG TABLET 0.8 MG PO (08:52)
[2023-12-29] MEDS: lisinopriL 20 MG TABLET PO (08:52)
[2023-12-29] MEDS: DOXYCYCLINE HYCLATE 100 MG TABLET PO ×2 (08:52→21:10)
[2023-12-29] MEDS: ASCORBIC ACID 500 MG TABLET PO ×2 (08:52→17:11)
[2023-12-29] MEDS: MAGNESIUM OXIDE 400 MG TABLET PO (08:52)
[2023-12-29] MEDS: ONDANSETRON INJ 4 MG/2 ML VIAL IV PUSH ×2 (08:53→12:59)
--- NOTE | 2023-12-29 09:17 | PM.IMPN ---
Progress Note: A&P Assessment and Plan (1) Abdominal pain, RUQ: Code(s): R10.11 - Right upper quadrant pain Status: Acute Assessment and Plan: CT abdomen pelvis with contrast demonstrated: Gallbladder hydrops with indeterminate attenuation within the dilated common bile duct with extension to the central most intrahepatic ducts. These findings could represent obstruction due to malignancy versus choledocholithiasis for which MRCP/ERCP is recommended, if the patient is clinically able. Additional findings of significant hypovolemia given the appearance of the inferior vena cava. Nonobstructing calculus within the lower pole of the left kidney, increased in size from 12/08/2023 and an interval change from 2022 and 2021. Redemonstration of known metastatic osseous disease, as detailed above GI consulted from ER. Recommended hospitalization. MRCP ordered. Patient was given Zofran, morphine 4 mg IV x1, 1 L normal saline bolus. 12/28- FI is following: Patient's common bile duct is clear from stones. She will need laparoscopic cholecystectomy. Surgery already contacted will see her today. She received a 2nd round of magnesium due to hypomagnesemia. (2) Elevated transaminase level: Code(s): R74.01 - Elevation of levels of liver transaminase levels Status: Acute (3) Choledocholithiasis: Code(s): K80.50 - Calculus of bile duct without cholangitis or cholecystitis without obstruction Status: Acute Assessment and Plan: GI consulted ordered, notes reviewed: This patient has clear evidence of cholelithiasis and choledocholithiasis with jaundice, markedly increased AST and ALT levels and an MRCP demonstrating the presence of a common bile duct stone. Will start antibiotics, will check INR tomorrow and will plan ERCP on Thursday. On the other hand, magnesium level is noticed to be low, and suggest correcting it during the weekend. In the meantime, patient can have a regular diet and will be kept NPO after midnight on Thursday for ERCP on Thursday at noon. - continue antibiotics- nausea/pain control -GI is following- Patient's common bile duct is clear from stones. She will need laparoscopic cholecystectomy. Surgery already contacted will see her today. She received a 2nd round of magnesium due to hypomagnesemia. We will check levels tomorrow a.m. Plan 73-year-old female who arrives with her sister and her . She lives with her . Complains of right upper quadrant pain on the day of admission 12/25/2023. Became abruptly in onset while she was doing nothing in morning. Pain was persistent and radiated to her right flank. Any type of oral intake exacerbated it. She cannot eat since the morning of admission.. This also happened a few weeks ago but it was transient and she was able to forego seeking professional evaluation. Of note, the patient has a history of GERD, hypertension, breast cancer invasive ductal carcinoma of the right breast diagnosed September 21, 2018. Currently on Enhertu started April 23, 2023. - mg is replaced yesterday and today- monitor SCDs. Famotidine 20 mg IV b.i.d. Full code. Time Spent With Patient Time with patient: Greater than 35 minutes Subjective Date/time seen: 12/29/23 09:17 Interval history: seen and examined. She will need laparoscopic cholecystectomy. Surgery consulted per DR Elizabeth. Review of Systems Review of Systems: All systems reviewed & are unremarkable except as noted in HPI and below (Subjective) Exam Const: General: comfortable and no acute distress Eyes: Pupils: Equal, round and reactive pupils present Neck: Neck: supple Resp: Effort & Inspection: normal respiratory effort Auscultation: clear to auscultation bilaterally Cardio: Rate: regular rate Rhythm: regular rhythm Heart sounds: no gallops, no murmurs and no rubs GI: Inspection: non-distended Other: Positive Campbell sign : General: Yes bladder normal to palpation Bimanual exam- vagina & uterus: bladder normal to palpation Neuro: Cranial nerves: Yes Equal, round and reactive pupils present Extrem: General: no edema Objective Data Vital Signs Vital Signs: Vital Signs - 24 hr 12/28/23 12:29 12/28/23 14:13 12/28/23 14:23 Temperature 97.2 F L 97.2 F L Pulse Rate 103 H 76 77 Respiratory Rate 20 16 18 Blood Pressure 154/77 H 80/39 L 70/36 L Pulse Oximetry 98 100 100 Oxygen Delivery Room Air Simple Face Mask Simple Face Mask Oxygen Flow Rate 15 10 12/28/23 14:33 12/28/23 14:43 12/28/23 14:53 Temperature Pulse Rate 71 98 104 H Respiratory Rate 21 H 22 H 18 Blood Pressure 96/52 L 120/66 124/89 Pulse Oximetry 100 98 98 Oxygen Delivery Simple Face Mask Room Air Room Air Oxygen Flow Rate 4 12/28/23 15:03 12/28/23 15:32 12/28/23 16:15 Temperature 96.9 F L 98.1 F Pulse Rate 105 H 105 H 87 Respiratory Rate 19 18 18 Blood Pressure 117/75 143/59 H 127/70 Pulse Oximetry 95 94 97 Oxygen Delivery Room Air Oxygen Flow Rate 12/28/23 19:24 12/28/23 20:00 12/29/23 05:25 Temperature 97.7 F 98.1 F Pulse Rate 90 87 Respiratory Rate 18 16 Blood Pressure 130/69 132/66 Pulse Oximetry 98 97 Oxygen Delivery Room Air Oxygen Flow Rate Intake/Output Intake/Output: Intake & Output 12/26/23 12/27/23 12/28/23 12/29/23 23:59 23:59 23:59 23:59 Intake Total 3000.0 3660 2863.8 1000 Balance 3000.0 3660 2863.8 1000 Meds/Results Medications: Active Medications Generic Name Dose Route Start Last Admin Trade Name Freq PRN Reason Stop Dose Admin Acetaminophen 1,000 mg 12/26/23 16:16 Acetaminophen 500 Mg Tablet PO Q8H PRN Pain Ascorbic Acid 500 mg 12/26/23 17:00 12/29/23 08:52 Ascorbic Acid 500 Mg Tablet PO 500 mg BID AMADO Administration Cyanocobalamin 1,000 mcg 12/27/23 09:00 12/29/23 08:52 Cyanocobalamin 1,000 Mcg Tablet PO 1,000 mcg DAILY AMADO Administration Diphenoxylate HCl/Atropine 1 tablet 12/26/23 15:49 12/29/23 06:21 Diphenoxylate/Atropine (*Crx) 2.5 Mg Tablet PO 1 tablet PRN PRN Administration Diarrhea Doxycycline Hyclate 100 mg 12/26/23 21:00 12/29/23 08:52 Doxycycline Hyclate 100 Mg Tablet PO 100 mg Q12HR AMADO Administration Famotidine 20 mg 12/27/23 09:00 12/29/23 08:52 Famotidine 20 Mg Tablet PO 20 mg DAILY AMADO Administration Ferrous Sulfate 325 mg 12/26/23 17:00 12/28/23 16:00 Ferrous Sulfate [address] PO Not Given 1200,1700 [facility] Folic Acid 0.8 mg 12/27/23 09:00 12/29/23 08:52 Folic Acid 0.4 Mg Tablet PO 01/26/24 08:59 0.8 mg DAILY AMADO Administration Ceftriaxone Sodium 1 gm in 50 mls @ 100 mls/hr 12/26/23 11:10 12/29/23 08:52 Rocephin 1 Gm/Ns 50 Ml IVPB 100 mls/hr DAILY AMADO Administration Lactated Ringer's 1,000 mls @ 120 mls/hr 12/28/23 15:05 12/29/23 02:26 Lr - Lactated Ringers Iv IV CONT 120 mls/hr .Q8H20M AMADO Administration Lisinopril 20 mg 12/27/23 09:00 12/29/23 08:52 Lisinopril 20 Mg Tablet PO 20 mg DAILY AMADO Administration Loperamide HCl 2 mg 12/26/23 16:18 12/29/23 08:52 Loperamide Hcl 2 Mg Capsule PO 2 mg PRN PRN Administration Diarrhea Magnesium Oxide 400 mg 12/28/23 09:00 12/29/23 08:52 Magnesium Oxide 400 Mg Tablet PO 400 mg DAILY AMADO Administration Metronidazole 500 mg 12/28/23 14:00 12/29/23 05:18 Metronidazole 500 Mg Tablet PO 500 mg Q8HR AMADO Administration Morphine Sulfate 2 mg 12/25/23 20:16 12/28/23 00:22 Morphine Sulfate (*Crx) 2 Mg/Ml Inj IV PUSH 2 mg Q2H PRN Administration Pain Rated 7-10 Multivitamins Therapeutic 1 tablet 12/27/23 09:00 12/29/23 08:52 Multivitamins Therapeutic Tab (*Bkc) PO 1 tablet DAILY AMADO Administration Ondansetron HCl 4 mg 12/25/23 20:16 12/29/23 08:53 Ondansetron Inj 4 Mg/2 Ml Vial IV PUSH 4 mg Q4H PRN Administration Nausea Pantoprazole Sodium 40 mg 12/29/23 09:00 12/29/23 08:52 Pantoprazole 40 Mg Tablet PO 40 mg QAM AMADO Administration Radiology Results: ITS Impressions Upper Quadrant Ultrasound 12/25/23 16:11 IMPRESSION: Cholelithiasis. Otherwise, Unremarkable right upper quadrant ultrasound of the abdomen. Abdomen/Pelvis CT 12/25/23 18:37 IMPRESSION: Gallbladder hydrops with indeterminate attenuation within the dilated common bile duct with extension to the central most intrahepatic ducts. These findings could represent obstruction due to malignancy versus choledocholithiasis for which MRCP/ERCP is recommended, if the patient is clinically able. Additional findings of significant hypovolemia given the appearance of the inferior vena cava. Nonobstructing calculus within the lower pole of the left kidney, increased in size from 12/08/2023 and an interval change from 2022 and 2021. Redemonstration of known metastatic osseous disease, as detailed above These findings were discussed with Dr. Santos, caring for the patient in the ER at 7:00 PM on 12/25/2023 MRCP 12/26/23 08:20 IMPRESSION: 1. Acute interstitial pancreatitis. 2. Choledocholithiasis with intrahepatic and extrahepatic biliary duct dilatation. 3. Cholelithiasis. 4. Widespread sclerotic lesions of bone, consistent with metastatic disease. 5. 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 Endo Retro Cholangiopancreatogram 12/28/23 14:25 IMPRESSION: 1. Choledocholithiasis. Please refer to the ERCP procedure note for additional details. Labs Labs: Laboratory Results - last 24 hr 12/29/23 06:15 WBC 5.2 RBC 2.43 L Hgb 8.7 L Hct 27.4 L MCV 112.8 H D MCH 35.8 H MCHC 31.8 L RDW 16.2 H Plt Count 180 MPV 10.3 Sodium 138 Potassium 3.6 Chloride 109 H Carbon Dioxide 22 Anion Gap 7 BUN 10 Creatinine 0.90 Estim Creat Clear Calc 50 Estimated GFR > 60 Glucose 80 Calcium 9.6 Magnesium 1.3 L Quality VTE Prophylaxis VTE prophylaxis: mechanical ordered
[2023-12-29] MEDS: FERROUS SULFATE 325 MG TABLET DR PO ×2 (12:59→17:11)
[2023-12-29 14:00] VITALS: BP 128/67; PULSE 99; RESP 19; TEMP 37.1; O2SAT 96
--- NOTE | 2023-12-29 15:44 | WPDGIPROGNO ---
Progress Note: A&P Assessment and Plan (1) Cholelithiasis: Code(s): K80.20 - Calculus of gallbladder without cholecystitis without obstruction Status: Acute Assessment and Plan: The patient underwent ERCP yesterday, finding no residual stones. Laparoscopic cholecystectomy to be scheduled by surgery, pending consultation. Time Spent With Patient Time with patient: less than 15 minutes Subjective Date/time seen: 12/29/23 15:44 Interval history: The patient is doing well, tolerating food, no fever no abdominal pain. Still with ceftriaxone, awaiting surgical consultation. Objective Data Vital Signs Vital Signs: Vital Signs - 24 hr 12/28/23 16:15 12/28/23 19:24 12/28/23 20:00 Temperature 98.1 F 97.7 F Pulse Rate 87 90 Respiratory Rate 18 18 Blood Pressure 127/70 130/69 Pulse Oximetry 97 98 Oxygen Delivery Room Air 12/29/23 05:25 12/29/23 08:52 Temperature 98.1 F Pulse Rate 87 Respiratory Rate 16 Blood Pressure 132/66 Pulse Oximetry 97 Oxygen Delivery Room Air Intake/Output Intake/Output: Intake & Output 12/26/23 12/27/23 12/28/23 12/29/23 23:59 23:59 23:59 23:59 Intake Total 3000.0 3660 2863.8 2230 Balance 3000.0 3660 2863.8 2230 Meds/Results Medications: Active Medications Generic Name Dose Route Start Last Admin Trade Name Freq PRN Reason Stop Dose Admin Acetaminophen 1,000 mg 12/26/23 16:16 Acetaminophen 500 Mg Tablet PO Q8H PRN Pain Ascorbic Acid 500 mg 12/26/23 17:00 12/29/23 08:52 Ascorbic Acid 500 Mg Tablet PO 500 mg BID AMADO Administration Cyanocobalamin 1,000 mcg 12/27/23 09:00 12/29/23 08:52 Cyanocobalamin 1,000 Mcg Tablet PO 1,000 mcg DAILY AMADO Administration Diphenoxylate HCl/Atropine 1 tablet 12/26/23 15:49 12/29/23 06:21 Diphenoxylate/Atropine (*Crx) 2.5 Mg Tablet PO 1 tablet PRN PRN Administration Diarrhea Doxycycline Hyclate 100 mg 12/26/23 21:00 12/29/23 08:52 Doxycycline Hyclate 100 Mg Tablet PO 100 mg Q12HR AMADO Administration Famotidine 20 mg 12/27/23 09:00 12/29/23 08:52 Famotidine 20 Mg Tablet PO 20 mg DAILY AMADO Administration Ferrous Sulfate 325 mg 12/26/23 17:00 12/29/23 12:59 Ferrous Sulfate [address] PO 325 mg 1200,1700 AMADO Administration Folic Acid 0.8 mg 12/27/23 09:00 12/29/23 08:52 Folic Acid 0.4 Mg Tablet PO 01/26/24 08:59 0.8 mg DAILY AMADO Administration Ceftriaxone Sodium 1 gm in 50 mls @ 100 mls/hr 12/26/23 11:10 12/29/23 09:22 Rocephin 1 Gm/Ns 50 Ml IVPB Infused DAILY AMADO Infusion Lactated Ringer's 1,000 mls @ 120 mls/hr 12/28/23 15:05 12/29/23 11:30 Lr - Lactated Ringers Iv IV CONT 120 mls/hr .Q8H20M AMADO Administration Lisinopril 20 mg 12/27/23 09:00 12/29/23 08:52 Lisinopril 20 Mg Tablet PO 20 mg DAILY AMADO Administration Loperamide HCl 2 mg 12/26/23 16:18 12/29/23 08:52 Loperamide Hcl 2 Mg Capsule PO 2 mg PRN PRN Administration Diarrhea Magnesium Oxide 400 mg 12/28/23 09:00 12/29/23 08:52 Magnesium Oxide 400 Mg Tablet PO 400 mg DAILY AMADO Administration Metronidazole 500 mg 12/28/23 14:00 12/29/23 12:59 Metronidazole 500 Mg Tablet PO 500 mg Q8HR AMADO Administration Morphine Sulfate 2 mg 12/25/23 20:16 12/28/23 00:22 Morphine Sulfate (*Crx) 2 Mg/Ml Inj IV PUSH 2 mg Q2H PRN Administration Pain Rated 7-10 Multivitamins Therapeutic 1 tablet 12/27/23 09:00 12/29/23 08:52 Multivitamins Therapeutic Tab (*Bkc) PO 1 tablet DAILY AMADO Administration Ondansetron HCl 4 mg 12/25/23 20:16 12/29/23 12:59 Ondansetron Inj 4 Mg/2 Ml Vial IV PUSH 4 mg Q4H PRN Administration Nausea Pantoprazole Sodium 40 mg 12/29/23 09:00 12/29/23 08:52 Pantoprazole 40 Mg Tablet PO 40 mg QAM AMADO Administration Radiology Results: ITS Impressions Upper Quadrant Ultrasound 12/25/23 16:11 IMPRESSION: Cholelithiasis. Otherwise, Unremarkable right upper quadrant ultrasound of the abdomen. Abdomen/Pelvis CT 12/25/23 18:37 IMPRESSION: Gallbladder hydrops with indeterminate attenuation within the dilated common bile duct with extension to the central most intrahepatic ducts. These findings could represent obstruction due to malignancy versus choledocholithiasis for which MRCP/ERCP is recommended, if the patient is clinically able. Additional findings of significant hypovolemia given the appearance of the inferior vena cava. Nonobstructing calculus within the lower pole of the left kidney, increased in size from 12/08/2023 and an interval change from 2022 and 2021. Redemonstration of known metastatic osseous disease, as detailed above These findings were discussed with Dr. Santos, caring for the patient in the ER at 7:00 PM on 12/25/2023 MRCP 12/26/23 08:20 IMPRESSION: 1. Acute interstitial pancreatitis. 2. Choledocholithiasis with intrahepatic and extrahepatic biliary duct dilatation. 3. Cholelithiasis. 4. Widespread sclerotic lesions of bone, consistent with metastatic disease. 5. 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 Endo Retro Cholangiopancreatogram 12/28/23 14:25 IMPRESSION: 1. Choledocholithiasis. Please refer to the ERCP procedure note for additional details. Labs Labs: Laboratory Results - last 24 hr 12/29/23 06:15 WBC 5.2 RBC 2.43 L Hgb 8.7 L Hct 27.4 L MCV 112.8 H D MCH 35.8 H MCHC 31.8 L RDW 16.2 H Plt Count 180 MPV 10.3 Sodium 138 Potassium 3.6 Chloride 109 H Carbon Dioxide 22 Anion Gap 7 BUN 10 Creatinine 0.90 Estim Creat Clear Calc 50 Estimated GFR > 60 Glucose 80 Calcium 9.6 Magnesium 1.3 L
--- NOTE | 2023-12-29 16:06 | P.CONGS_ITS ---
Assessment and Plan Assessment and plan (1) Cholelithiasis: Code(s): K80.20 - Calculus of gallbladder without cholecystitis without obstruction Status: Acute Assessment and Plan: Patient presented with acute biliary pancreatitis and found to have choledocholithiasis on MRCP. She does have evidence of cholelithiasis on imaging. Common bile duct stone likely passed. ERCP with sphincterotomy yesterday but no stones in the common bile duct. We would recommend proceeding with a laparoscopic cholecystectomy to prevent recurrence. I discussed with the patient that this would temporarily put her chemotherapy on hold while she recovers from surgery. We discussed the details of a laparoscopic cholecystect marvin, possible open, that would be done under general anesthesia, as well as the risks, benefits, alternatives, and expected recovery in detail. All of her questions were answered. She agrees to proceed with surgery. We will work on adding her onto the surgery schedule in the next few days. (2) Choledocholithiasis: Code(s): K80.50 - Calculus of bile duct without cholangitis or cholecystitis without obstruction Status: Acute (3) Biliary acute pancreatitis: Code(s): K85.10 - Biliary acute pancreatitis without necrosis or infection Status: Acute Assessment and Plan: Presented with acute biliary pancreatitis with only a mildly elevated lipase in the 400's. MRCP showed acute interstitial pancreatitis with choledocholithiasis and cholelithiasis. Her abdominal pain has resolved and her abdominal exam is completely benign. See plan above. Will repeat labs tomorrow. (4) Elevated LFTs: Code(s): R79.89 - Other specified abnormal findings of blood chemistry Status: Acute Assessment and Plan: Will repeat labs tomorrow. (5) Breast cancer metastasized to bone: Code(s): C50.919 - Malignant neoplasm of unspecified site of unspecified female breast; C79.51 - Secondary malignant neoplasm of bone Status: Acute Assessment and Plan: Undergoing chemotherapy treatments. She has a Port in her left chest. She is due for her next chemotherapy treatment next Thursday and we discussed that chemotherapy would likely need to be held while recovering from surgery, but this would be deferred to Oncology when they would want to resume her chemo. (6) Chronic anemia: Code(s): D64.9 - Anemia, unspecified Status: Acute Assessment and Plan: Hgb stable but low at 8.7. (7) Acute on chronic kidney failure: Code(s): N17.9 - Acute kidney failure, unspecified; N18.9 - Chronic kidney disease, unspecified Status: Acute Assessment and Plan: Improved and creatinine now down to 0.9. Plan I have discussed the patient's case and plan of care with Dr. Babcock. History of Present Illness Consult details Consult date: 12/29/23 Reason for consult: other (Cholelithiasis) Requesting physician: Joshua Elizabeth MD Narrative: This is a 73-year-old woman with PMH of breast cancer with metastasis undergoing chemotherapy, GERD, and hypertension, who we have been asked to see in surgical consultation for cholelithiasis. She presented to the ED last Thursday with complaints of right upper quadrant abdominal pain. This was a sudden onset in the morning and radiated into her right flank. She reports associated nausea. She had a similar episode of pain about a month prior and was concerned it was related to her gallbladder. Her abdominal pain resolved after 2 days and she was not evaluated for her pain at that time as her symptoms resolved. Workup in the ED showed elevated liver enzymes with a total bilirubin of 4.1 and lipase 434. Right upper quadrant ultrasound showed cholelithiasis. CT scan of the abdomen and pelvis showed a dilated gallbladder with common bile duct dilation that extends to the central most intrahepatic ducts. This also showed hypovolemia with the flattened appearance of inferior vena cava, nonobstructing calculus within the lower pole of the left kidney, and known metastatic osseous disease. 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 GI was consulted and she underwent ERCP yesterday with sphincterotomy. There were no common bile duct stones found, but she was found to have a duodenal ulcer. She is now seen in consultation on the medical floor. Her is at the bedside. Review of Systems Review of Systems: All systems reviewed & are unremarkable except as noted in HPI and below PMFSH Past Medical History Medical History Anemia Breast cancer metastasized to bone Chemotherapy induced diarrhea GERD (gastroesophageal reflux disease) History of breast cancer Diagnosed in 2019 status post right-sided lumpectomy and sentinel lymph node biopsy in 2019. Found to have recurrent metastatic disease and was started on chemotherapy in 2023. HTN (hypertension) Surgical History Surgical History History of lumpectomy Hx of appendectomy Open appendectomy Family History Family History Mother Patient's mother is Father Cerebrovascular accident Social History Social History Social History: Surrogate medical decision maker: Moe Marks, spouse. Code status: full code. Smoking status: Never smoker Second hand tobacco smoke exposure: No Alcohol intake: never Drinks per week: 1 Substance use: never Substance use type: does not use Do You Feel Safe in your Home?: Yes Lack of Transportation: No Lack of Food: Never True Current Housing: I Have Housing Concerned About Future Housing: No Difficulty Paying Gas/Electric Bills: No Difficulty Paying for Meds: No Currently Unemployed: No Education: Associate Degree Difficulty w/ Childcare or Family Care: No Living arrangements: with family Additional living arrangements comments: Lives with in [place]. They have 1 child. Spiritual care concerns: No Meds Home Medications and Allergies Home Medications Medication Instructions Recorded Confirmed Type ascorbic acid (vitamin C) 500 mg 500 mg PO BID 12/17/18 12/25/23 History tablet famotidine 20 mg tablet 20 mg PO DAILY 12/17/18 12/25/23 History multivitamin 1 tablet PO DAILY 12/17/18 12/25/23 History acetaminophen 500 mg capsule 1,000 mg PO Q8H PRN Pain 10/07/21 12/26/23 History ferrous sulfate 325 mg (65 mg 325 mg PO BID 10/07/21 12/25/23 History iron) tablet doxycycline hyclate 1 tablet PO BID 04/24/23 12/25/23 History vitamin B12 1 mg-folic acid 0.8 mg 1,000 tablet PO DAILY 07/23/23 12/25/23 History tablet diphenoxylate-atropine 2.5 1 tablet PO PRN PRN Diarrhea 12/25/23 12/25/23 History mg-0.025 mg tablet lisinopril 20 mg tablet 20 mg PO DAILY 12/25/23 12/25/23 History ondansetron 8 mg disintegrating 8 mg PO Q8H PRN Nausea 12/25/23 12/25/23 History tablet loperamide 2 mg capsule 2 mg PO PRN PRN Diarrhea 12/26/23 12/26/23 History Allergies Allergy/AdvReac Type Severity Reaction Status Date / Time amoxicillin [From Augmentin] AdvReac Nausea and Verified 12/25/23 15:03 Vomiting clavulanic acid AdvReac Nausea and Verified 12/25/23 15:03 [From Augmentin] Vomiting Vital Signs Vital Signs - 24 hr 12/28/23 16:15 12/28/23 19:24 12/28/23 20:00 Temperature 98.1 F 97.7 F Pulse Rate 87 90 Respiratory Rate 18 18 Blood Pressure 127/70 130/69 Pulse Oximetry 97 98 Oxygen Delivery Room Air 12/29/23 05:25 12/29/23 08:52 Temperature 98.1 F Pulse Rate 87 Respiratory Rate 16 Blood Pressure 132/66 Pulse Oximetry 97 Oxygen Delivery Room Air Exam Const: General: comfortable and no acute distress Nutritional Appearance: average body habitus Orientation/consciousness: patient oriented x3 HENMT: Head: normocephalic and atraumatic Ears: hearing grossly normal bilaterally Mouth: Yes moist mucous membranes Eyes: General: appearance normal, both eyes and all related structures Pupils: Equal, round and reactive pupils present Neck: Neck: normal visual inspection and full ROM Resp: Effort & Inspection: no respiratory distress Auscultation: clear to auscultation bilaterally Cardio: Rate: regular rate Rhythm: regular rhythm Heart sounds: S1 normal heart sound present and S2 normal heart sound present Peripheral pulses: Peripheral pulses 2+ throughout GI: Inspection: non-distended, scar (lower abdominal scar in the midline) and no visible herniation GI Palp: Yes Soft to palpation, No Tenderness to palpation present (GI), No Guarding due to palpation present (GI), Yes No hepatosplenomegaly present and No Rebound tenderness present Auscultation: normal bowel sounds Skin: General skin exam: normal color Neuro: General: moves all extremities and no focal motor deficits Speech: normal speech Motor exam (neuro): 5/5 motor strength present throughout Extrem: General: normal to inspection and no edema Psych: Mental Status: mental status grossly normal Attitude: cooperative Insight: Good insight present (Psych) Judgement: Good judgement present (Psych) Results Labs 12/29/23 06:15 12/29/23 06:15 Labs: Abnormal lab results 12/29/23 Range/Units 06:15 RBC 2.43 L (4.2-5.4) M/mm3 Hgb 8.7 L (12.0-15.0) g/dL Hct 27.4 L (37.0-47.0) % MCV 112.8 H D (80-100) fl MCH 35.8 H (26-34) pg MCHC 31.8 L (32-36) g/dl RDW 16.2 H (11.5-14.5) % Chloride 109 H (98-107) mmol/L Magnesium 1.3 L (1.6-2.3) mg/dL Diabetes panel 12/29/23 Range/Units 06:15 Sodium 138 (137-145) mmol/L Potassium 3.6 (3.4-5.0) mmol/L Chloride 109 H (98-107) mmol/L Carbon Dioxide 22 (22-30) mmol/L BUN 10 (7-17) mg/dL Creatinine 0.90 (0.7-1.0) mg/dL Glucose 80 (65-110) mg/dL Calcium 9.6 (8.4-10.2) mg/dL Calcium panel 12/29/23 Range/Units 06:15 Calcium 9.6 (8.4-10.2) mg/dL Pituitary panel 12/29/23 Range/Units 06:15 Sodium 138 (137-145) mmol/L Potassium 3.6 (3.4-5.0) mmol/L Chloride 109 H (98-107) mmol/L Carbon Dioxide 22 (22-30) mmol/L BUN 10 (7-17) mg/dL Creatinine 0.90 (0.7-1.0) mg/dL Glucose 80 (65-110) mg/dL Calcium 9.6 (8.4-10.2) mg/dL Adrenal panel 12/29/23 Range/Units 06:15 Sodium 138 (137-145) mmol/L Potassium 3.6 (3.4-5.0) mmol/L Chloride 109 H (98-107) mmol/L Carbon Dioxide 22 (22-30) mmol/L BUN 10 (7-17) mg/dL Creatinine 0.90 (0.7-1.0) mg/dL Glucose 80 (65-110) mg/dL Calcium 9.6 (8.4-10.2) mg/dL All other labs normal. Imaging Additional studies: ITS Impressions Upper Quadrant Ultrasound 12/25/23 16:11 IMPRESSION: Cholelithiasis. Otherwise, Unremarkable right upper quadrant ultrasound of the abdomen. Abdomen/Pelvis CT 12/25/23 18:37 IMPRESSION: Gallbladder hydrops with indeterminate attenuation within the dilated common bile duct with extension to the central most intrahepatic ducts. These findings could represent obstruction due to malignancy versus choledocholithiasis for which MRCP/ERCP is recommended, if the patient is clinically able. Additional findings of significant hypovolemia given the appearance of the inferior vena cava. Nonobstructing calculus within the lower pole of the left kidney, increased in size from 12/08/2023 and an interval change from 2022 and 2021. Redemonstration of known metastatic osseous disease, as detailed above These findings were discussed with Dr. Santos, caring for the patient in the ER at 7:00 PM on 12/25/2023 MRCP 12/26/23 08:20 IMPRESSION: 1. Acute interstitial pancreatitis. 2. Choledocholithiasis with intrahepatic and extrahepatic biliary duct dilatation. 3. Cholelithiasis. 4. Widespread sclerotic lesions of bone, consistent with metastatic disease. 5. 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 Endo Retro Cholangiopancreatogram 12/28/23 14:25 IMPRESSION: 1. Choledocholithiasis. Please refer to the ERCP procedure note for additional details.
[2023-12-29 21:29] VITALS: BP 151/80; PULSE 110; RESP 18; TEMP 36.9; O2SAT 96
[2023-12-30] VITALS (8 sets, daily range): BP systolic 133–155; BP diastolic 63–92; PULSE 86–115; RESP 18–21; TEMP 36.4–36.9; O2SAT 92–98
[2023-12-30] MEDS: LACTATED RINGERS 1,000 ML 120 ML IV CONT ×2 (03:49→11:57)
[2023-12-30] MEDS: metroNIDAZOLE 500 MG TABLET PO ×2 (05:58→21:03)
[2023-12-30 07:11] LABS: Hematocrit 24.2 % (37.0-47.0); Mean Corpuscular HGB Conc 33.1 g/dl (32-36); Mean Corpuscular Hemoglobin 35.9 pg (26-34); Mean Corpuscular Volume 108.5 fl (80-100); Mean Platelet Volume 10.5 fl (7.4-10.4); Platelet Count Result 172 k/mm3 (150-375); Red Blood Count 2.23 M/mm3 (4.2-5.4); Red Cell Distribution Width 16.4 % (11.5-14.5)
[2023-12-30 07:33] LABS: Alanine Aminotransferase 224 U/L (6-35); Alkaline Phosphatase 193 U/L (38-126); Anion Gap 8 mmol/L (4-12); Aspartate Amino Transferase 141 U/L (14-36); Bilirubin,Total 1.4 mg/dL (0.2-1.3); Blood Urea Nitrogen 6 mg/dL (7-17); Calcium 9.1 mg/dL (8.4-10.2); Carbon Dioxide 24 mmol/L (22-30); Chloride 109 mmol/L (98-107); Estimated CRCL calculation 56 ml/min; Estimated Glomerular Filt Rate > 60; Glucose 82 mg/dL (65-110); Lipase 34 U/L (23-300); Potassium 3.1 mmol/L (3.4-5.0); Sodium 141 mmol/L (137-145)
--- NOTE | 2023-12-30 10:19 | P.PNIM_ITS ---
Progress Note: A&P Assessment and Plan (1) Choledocholithiasis: Code(s): K80.50 - Calculus of bile duct without cholangitis or cholecystitis without obstruction Status: Acute Assessment and Plan: GI consulted ordered, notes reviewed: This patient has clear evidence of cholelithiasis and choledocholithiasis with jaundice, markedly increased AST and ALT levels and an MRCP demonstrating the presence of a common bile duct stone. Will start antibiotics, will check INR tomorrow and will plan ERCP on Thursday. On the other hand, magnesium level is noticed to be low, and suggest correcting it during the weekend. In the meantime, patient can have a regular diet and will be kept NPO after midnight on Thursday for ERCP on Thursday at noon. - continue antibiotics- nausea/pain control -GI is following- status post ERCP Patient's common bile duct is clear from stones. surgery consult plan for cholecystectomy today likely discharge home tomorrow (2) Abdominal pain, RUQ: Code(s): R10.11 - Right upper quadrant pain Status: Acute Assessment and Plan: CT abdomen pelvis with contrast demonstrated: Gallbladder hydrops with indeterminate attenuation within the dilated common bile duct with extension to the central most intrahepatic ducts. These findings could represent obstruction due to malignancy versus choledocholithiasis for which MRCP/ERCP is recommended, if the patient is clinically able. Additional findings of significant hypovolemia given the appearance of the inferior vena cava. Nonobstructing calculus within the lower pole of the left kidney, increased in size from 12/08/2023 and an interval change from 2022 and 2021. Redemonstration of known metastatic osseous disease, as detailed above 12/28- GI is following: ERCP 12/29 lipase WDL, plan for surgery for cholecystectomy will (3) Elevated transaminase level: Code(s): R74.01 - Elevation of levels of liver transaminase levels Status: Acute Assessment and Plan: trending down (4) Macrocytic anemia: Code(s): D53.9 - Nutritional anemia, unspecified Status: Acute Assessment and Plan: chronic disease hemoglobin stable (5) UTI (urinary tract infection): Code(s): N39.0 - Urinary tract infection, site not specified Status: Acute Assessment and Plan: Mirian JUDD Plan 73-year-old female who arrives with her sister and her . She lives with her . Complains of right upper quadrant pain on the day of admission 12/25/2023. Became abruptly in onset while she was doing nothing in morning. Pain was persistent and radiated to her right flank. Any type of oral intake exacerbated it. She cannot eat since the morning of admission.. This also happened a few weeks ago but it was transient and she was able to forego seeking professional evaluation. Of note, the patient has a history of GERD, hypertension, breast cancer invasive ductal carcinoma of the right breast diagnosed September 21, 2018. Currently on Enhertu started April 23, 2023. - mg is replaced yesterday and today- monitor SCDs. Famotidine 20 mg IV b.i.d. Full code. Time Spent With Patient Time with patient: Greater than 35 minutes Subjective Date/time seen: 12/30/23 10:19 Interval history: 73 year old female patient evaluated over the weekend with a history is metastatic breast cancer, who had a new onset epigastric/right upper quadrant pain choledocholithiasis. The patient is doing well, tolerating food, no fever no abdominal pain. 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 All systems reviewed & are unremarkable except as noted in HPI and below (Subjective) Exam Narrative: General: well appearing, appears stated age. HEENT: normocephalic, atraumatic. Mucous membranes moist. EOMI, PERRLA, bilateral sclera anicteric, no conjunctival injection. Neck supple without JVD, lymphadenopathy, or bruit. Respiratory: clear to ascultation bilaterally. No rales/rhonic/wheezes. Cardiovascular: Regular rate and rhythm, normal S1-S2 upon ascultation. No murmurs, rubs, or clicks. PMI is nondisplaced, capillary refill less than 3 second. Abdomen: Soft, round, no pulsatile masses, nondistended and nontender. No rebound, no guarding. No CVA tenderness, no hepatosplenomegaly. Bowel sounds present to all four quadrants. No high pitch or tinkling sounds, resonant to percussion. Extremities: No cyanosis, clubbing, or edema present. Pulses are palpable 2/2. Active ROM to all four extremities. Neuro: Alert and orientated x 4. PERRLA. Cranial nerves 2-12 intact without focal deficit. Skin: Warm, dry, and intact, without rash, erythema, or lesion. Psych: pleasant, cooperative, normal speech, normal affect, no hallucinations, no dysarthia Const: General: comfortable and no acute distress Eyes: Pupils: Equal, round and reactive pupils present Neck: Neck: supple Resp: Effort & Inspection: normal respiratory effort Auscultation: clear to auscultation bilaterally Cardio: Rate: regular rate Rhythm: regular rhythm Heart sounds: no gallops, no murmurs and no rubs GI: Inspection: non-distended Other: Positive Campbell sign : General: Yes bladder normal to palpation Bimanual exam- vagina & uterus: bladder normal to palpation Neuro: Cranial nerves: Yes Equal, round and reactive pupils present Extrem: General: no edema Objective Data Vital Signs Vital Signs: Vital Signs - 24 hr 12/29/23 14:00 12/29/23 19:47 12/29/23 21:29 Temperature 98.8 F 98.4 F Pulse Rate 99 110 H Respiratory Rate 19 18 Blood Pressure 128/67 151/80 H Pulse Oximetry 96 96 Oxygen Delivery Room Air 12/30/23 05:03 Temperature 97.7 F Pulse Rate 93 Respiratory Rate 18 Blood Pressure 133/63 Pulse Oximetry 96 Oxygen Delivery Intake/Output Intake/Output: Intake & Output 12/27/23 12/28/23 12/29/23 12/30/23 23:59 23:59 23:59 23:59 Intake Total 3660 2863.8 3426 984 Balance 3660 2863.8 3426 984 Meds/Results Medications: Active Medications Generic Name Dose Route Start Last Admin Trade Name Freq PRN Reason Stop Dose Admin Acetaminophen 1,000 mg 12/26/23 16:16 Acetaminophen 500 Mg Tablet PO Q8H PRN Pain Ascorbic Acid 500 mg 12/26/23 17:00 12/30/23 10:10 Ascorbic Acid 500 Mg Tablet PO Not Given BID AMADO Cyanocobalamin 1,000 mcg 12/27/23 09:00 12/30/23 10:11 Cyanocobalamin 1,000 Mcg Tablet PO Not Given DAILY AMADO Diphenoxylate HCl/Atropine 1 tablet 12/26/23 15:49 12/29/23 23:47 Diphenoxylate/Atropine (*Crx) 2.5 Mg Tablet PO 1 tablet PRN PRN Administration Diarrhea Doxycycline Hyclate 100 mg 12/26/23 21:00 12/30/23 10:11 Doxycycline Hyclate 100 Mg Tablet PO Not Given Q12HR AMADO Famotidine 20 mg 12/27/23 09:00 12/30/23 10:11 Famotidine 20 Mg Tablet PO Not Given DAILY [facility] Ferrous Sulfate 325 mg 12/26/23 17:00 12/29/23 17:11 Ferrous Sulfate [address] PO 325 mg 1200,1700 AMADO Administration Folic Acid 0.8 mg 12/27/23 09:00 12/30/23 10:11 Folic Acid 0.4 Mg Tablet PO 01/26/24 08:59 Not Given DAILY [facility] Ceftriaxone Sodium 1 gm in 50 mls @ 100 mls/hr 12/26/23 11:10 12/30/23 10:16 Rocephin 1 Gm/Ns 50 Ml IVPB 100 mls/hr DAILY AMADO Administration Lactated Ringer's 1,000 mls @ 120 mls/hr 12/28/23 15:05 12/30/23 03:49 Lr - Lactated Ringers Iv IV CONT 120 mls/hr .Q8H20M AMADO Administration Lisinopril 20 mg 12/27/23 09:00 12/30/23 10:11 Lisinopril 20 Mg Tablet PO Not Given DAILY [facility] Loperamide HCl 2 mg 12/26/23 16:18 12/29/23 08:52 Loperamide Hcl 2 Mg Capsule PO 2 mg PRN PRN Administration Diarrhea Magnesium Oxide 400 mg 12/28/23 09:00 12/30/23 10:11 Magnesium Oxide 400 Mg Tablet PO Not Given DAILY [facility] Metronidazole 500 mg 12/28/23 14:00 12/30/23 05:58 Metronidazole 500 Mg Tablet PO 500 mg Q8HR AMADO Administration Morphine Sulfate 2 mg 12/25/23 20:16 12/28/23 00:22 Morphine Sulfate (*Crx) 2 Mg/Ml Inj IV PUSH 2 mg Q2H PRN Administration Pain Rated 7-10 Multivitamins Therapeutic 1 tablet 12/27/23 09:00 12/30/23 10:11 Multivitamins Therapeutic Tab (*Bkc) PO Not Given DAILY AMADO Ondansetron HCl 4 mg 12/25/23 20:16 12/29/23 12:59 Ondansetron Inj 4 Mg/2 Ml Vial IV PUSH 4 mg Q4H PRN Administration Nausea Pantoprazole Sodium 40 mg 12/29/23 09:00 12/30/23 10:11 Pantoprazole 40 Mg Tablet PO Not Given QAM [facility] Radiology Results: ITS Impressions Upper Quadrant Ultrasound 12/25/23 16:11 IMPRESSION: Cholelithiasis. Otherwise, Unremarkable right upper quadrant ultrasound of the abdomen. Abdomen/Pelvis CT 12/25/23 18:37 IMPRESSION: Gallbladder hydrops with indeterminate attenuation within the dilated common bile duct with extension to the central most intrahepatic ducts. These findings could represent obstruction due to malignancy versus choledocholithiasis for which MRCP/ERCP is recommended, if the patient is clinically able. Additional findings of significant hypovolemia given the appearance of the inferior vena cava. Nonobstructing calculus within the lower pole of the left kidney, increased in size from 12/08/2023 and an interval change from 2022 and 2021. Redemonstration of known metastatic osseous disease, as detailed above These findings were discussed with Dr. Santos, caring for the patient in the ER at 7:00 PM on 12/25/2023 MRCP 12/26/23 08:20 IMPRESSION: 1. Acute interstitial pancreatitis. 2. Choledocholithiasis with intrahepatic and extrahepatic biliary duct dilatation. 3. Cholelithiasis. 4. Widespread sclerotic lesions of bone, consistent with metastatic disease. 5. 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 Endo Retro Cholangiopancreatogram 12/28/23 14:25 IMPRESSION: 1. Choledocholithiasis. Please refer to the ERCP procedure note for additional details. Labs Labs: Laboratory Results - last 24 hr 12/29/23 12/30/23 16:41 06:16 WBC 4.0 L RBC 2.23 L Hgb 8.0 L Hct 24.2 L MCV 108.5 H MCH 35.9 H MCHC 33.1 RDW 16.4 H Plt Count 172 MPV 10.5 H Sodium 141 Potassium 3.1 L Chloride 109 H Carbon Dioxide 24 Anion Gap 8 BUN 6 L Creatinine 0.80 Estim Creat Clear Calc 56 Estimated GFR > 60 Glucose 82 Calcium 9.1 Total Bilirubin 1.4 H AST 141 H ALT 224 H Alkaline Phosphatase 193 H Total Protein 6.0 L Albumin 3.0 L Lipase 34 Blood Type O Positive Antibody Screen Negative Quality VTE Prophylaxis VTE prophylaxis: mechanical ordered Hospitalist MIPS Advance Care Plan I have confirmed that the patient's Advanced Care Plan is present, code status is documented, or surrogate decision maker is listed in patient medical record.: Yes Medication Reconciliation I have utilized all available resources to obtain, update and review the patients current medications (includes all prescriptions, OTC, herbals, cannabis, and nutritional supplements).: Yes
[2023-12-30 11:10] LABS: Lipase 37 U/L (23-300)
[2023-12-30] MEDS: KCL 20 MEQ/SW 100 ML 100 ML 50 MEQ IVPB (11:55)
[2023-12-30 12:21] LABS: Folic Acid > 20.0 ng/mL (2.76->20); Vitamin B12 > 1000.0 pg/mL (239-931)
--- NOTE | 2023-12-30 13:57 | PC.NURSE ---
Patient off of unit to surgery
[2023-12-30] MEDS: LACTATED RINGERS 1,000 ML 30 ML IV CONT (14:05)
--- NOTE | 2023-12-30 14:32 | P.PNAN_ITS ---
Anes - Eval Final PreProcedure Day of Procedure 12/30/23 14:32 Patient weight: overweight Heart: regular rate and rhythm Lungs: clear to auscultation Airway: Mallampati scale class II Neurological: alert and oriented Last oral intake: >/= 8 hours ASA classification: IV Emergent: no Anesthetic plan: proceed Anesthesia type and monitoring: general ETT and standard monitoring Results Review: All pre-operative results and documents have been reviewed as part of the pre- operative evaluation. Informed Consent: The patient's anesthetic plan and its attendant risks and benefits were discussed with the patient/family/POA. Questions were solicited and answers provided to the satisfaction of the patient/family/POA.
--- NOTE | 2023-12-30 14:32 | WPDHPUPDATE1 ---
History and Physical Update Update Date/Time: 12/30/23 14:32 History and Physical has been reviewed, including an updated exam of the patient. There are NO changes in the patient's condition. Risks, benefits, and alternatives have been discussed and questions answered. Patient agrees to proceed with procedure.
[2023-12-30] MEDS: BUPIVACAINE/EPINEPHRINE 0.5% 10 ML VIAL 30 ML INFILTRATE (15:34)
--- NOTE | 2023-12-30 16:32 | P.OP_ITS ---
Procedure Note - Detailed Date of Procedure 12/30/23 Pre-op Diagnosis Cholelithiasis Post-op Diagnosis Same Procedure Performed Laparoscopic cholecystectomy Surgeon Kb Haro, DO Anesthesia General and Local (0.5% bupivacaine) Indications This is a 73-year-old woman who presented to the emergency department with right upper quadrant pain and elevated liver enzymes. Her workup showed evidence of a dilated common bile duct. She then had an MRCP which showed evidence of choledocholithiasis and multiple stones within the gallbladder. She underwent ERCP [address] Elizabeth. she further discussions were made with the patient about treatment options and decision was made to proceed with laparoscopic cholecystectomy, possible open. Findings Laparoscopic cholecystectomy was performed. The patient had evidence of pericholecystic adhesions and a dilated and elongated gallbladder. Her gallbladder was filled with small gallstones. Her gallbladder neck and cystic duct were also dilated, but the cystic duct did not appear to be containing any stones. The gallbladder was removed and sent to the lab for pathology. Description of Procedure Procedure as well as risks, benefits, and alternatives were discussed with patient. Written consent was obtained and placed in chart prior to procedure. The patient was brought back to surgical suite. Patient was placed in supine position on operating table. Time-out was done to confirm patient and procedure. Patient was then intubated by the anesthesia department. Abdomen was prepped and draped in sterile fashion using chlorhexidine prep. 0.5% bupivacaine with epinephrine was infiltrated at each site of incision. A 5 millimeter incision was made near the umbilicus, and a 5 millimeter Optiview trocar was advanced through the abdominal layers under direct visualization. Once inside the abdominal cavity, carbon dioxide was insufflated to create a pneumoperitoneum. The camera was inserted and the abdomen was inspected. No immediate abnormalities were identified. The patient was placed in reverse Trendelenburg position and rotated slightly to the left. An 11 millimeter incision was made in the subxiphoid region, and an 11 millimeter trocar was inserted under direct visualization. Two 5 millimeter incisions were made in the right upper quadrant, and two 5 millimeter trocars were inserted under direct visualization. The gallbladder was identified and grasped at the fundus and retracted superiorly. It was then grasped at the infundibulum retracted laterally. Careful dissection around the neck of the gallbladder was performed using blunt dissection with a [place] grasper and hook electrocautery. The cystic duct was identified, and a window was created behind it. The cystic artery was also identified and a window was created behind it. The critical view of safety was identified, visualizing the cystic duct running directly into the neck of the gallbladder, and the cystic artery running directly into the wall of the gallbladder. A 5 millimeter clip software lead was then used to place 2 clips proximally and 1 clip distally on both the cystic duct and cystic artery. They were then both transected using endoscopic scissors. Once safely away from the sal hepatitis, the gallbladder was dissected free from the liver bed using hook electrocautery. Hemostasis was achieved along the way. The gallbladder was removed completely and then removed through the subxiphoid port. The liver bed was then inspected. Hemostasis appeared adequate, and our clips appeared secure. The area was gently irrigated with sterile saline. No other abnormalities were seen. The patient was flattened out in bed, and 1 final inspection was made around the abdominal cavity. The subxiphoid port was removed, and a Shalom Fermín cone was used to approximate the fascia with an 0-Vicryl simple interrupted suture. The remaining ports were then removed under direct visualization, the camera was removed, and the pneumoperitoneum was released. The skin of the incisions was approximated using 4-0 Monocryl subcuticular sutures. Exofin glue was applied on top. The patient was then awakened from anesthesia, extubated, and transferred to recovery. Estimated Blood Loss 20 Pathology Yes (Gallbladder) Complications No immediate complications Condition Stable Disposition Floor AM Billing Surgery - Charge Forward: Surgery Billing
[2023-12-30] MEDS: LACTATED RINGERS 1,000 ML 100 ML IV CONT (17:16)
[2023-12-30] MEDS: DOXYCYCLINE HYCLATE 100 MG TABLET PO (21:03)
[2023-12-30] MEDS: ACETAMINOPHEN 500 MG TABLET PO (23:21)
[2023-12-31 02:44] VITALS: BP 142/83; PULSE 91; RESP 20; TEMP 36.7; O2SAT 98
[2023-12-31] MEDS: metroNIDAZOLE 500 MG TABLET PO (06:10)
[2023-12-31 06:44] VITALS: BP 140/72; PULSE 94; RESP 20; TEMP 36.6; O2SAT 100
[2023-12-31] MEDS: PANTOPRAZOLE 40 MG TABLET PO (08:29)
[2023-12-31] MEDS: FOLIC ACID 0.4 MG TABLET 0.8 MG PO (08:29)
[2023-12-31] MEDS: CYANOCOBALAMIN 1,000 MCG TABLET 1000 MCG PO (08:29)
[2023-12-31] MEDS: MAGNESIUM OXIDE 400 MG TABLET PO (08:29)
[2023-12-31] MEDS: MULTIVITAMINS THERAPEUTIC TAB (*BKC) 1 TABLET PO (08:29)
[2023-12-31] MEDS: ENOXAPARIN 40 MG/0.4 ML SYRINGE SUB-Q (08:29)
[2023-12-31] MEDS: ASCORBIC ACID 500 MG TABLET PO (08:29)
[2023-12-31] MEDS: DOXYCYCLINE HYCLATE 100 MG TABLET PO (08:29)
[2023-12-31] MEDS: lisinopriL 20 MG TABLET PO (08:29)
[2023-12-31] MEDS: FAMOTIDINE 20 MG TABLET PO (08:29)
[2023-12-31 08:56] LABS: Hematocrit 27.1 % (37.0-47.0); Hemoglobin 8.9 g/dL (12.0-15.0); Mean Corpuscular HGB Conc 32.8 g/dl (32-36); Mean Corpuscular Hemoglobin 35.3 pg (26-34); Mean Corpuscular Volume 107.5 fl (80-100); Mean Platelet Volume 10.5 fl (7.4-10.4); Platelet Count Result 227 k/mm3 (150-375); Red Blood Count 2.52 M/mm3 (4.2-5.4); Red Cell Distribution Width 16.7 % (11.5-14.5); White Blood Count 8.3 K/mm3 (4.5-10.0)
[2023-12-31 09:07] LABS: Anion Gap 10 mmol/L (4-12); Blood Urea Nitrogen 8 mg/dL (7-17); Calcium 9.5 mg/dL (8.4-10.2); Carbon Dioxide 23 mmol/L (22-30); Chloride 106 mmol/L (98-107); Estimated CRCL calculation 50 ml/min; Estimated Glomerular Filt Rate > 60; Glucose 94 mg/dL (65-110); Potassium 3.1 mmol/L (3.4-5.0); Sodium 139 mmol/L (137-145)
--- NOTE | 2023-12-31 10:17 | P.PNIM_ITS ---
Progress Note: A&P Assessment and Plan (1) Choledocholithiasis: Code(s): K80.50 - Calculus of bile duct without cholangitis or cholecystitis without obstruction Status: Acute Assessment and Plan: GI consulted ordered, notes reviewed: This patient has clear evidence of cholelithiasis and choledocholithiasis with jaundice, markedly increased AST and ALT levels and an MRCP demonstrating the presence of a common bile duct stone. Will start antibiotics, will check INR tomorrow and will plan ERCP on Thursday. On the other hand, magnesium level is noticed to be low, and suggest correcting it during the weekend. In the meantime, patient can have a regular diet and will be kept NPO after midnight on Thursday for ERCP on Thursday at noon. - continue antibiotics- nausea/pain control -GI is following- status post ERCP Patient's common bile duct is clear from stones. surgery consult plan for cholecystectomy today likely discharge home tomorrow (2) Abdominal pain, RUQ: Code(s): R10.11 - Right upper quadrant pain Status: Acute Assessment and Plan: CT abdomen pelvis with contrast demonstrated: Gallbladder hydrops with indeterminate attenuation within the dilated common bile duct with extension to the central most intrahepatic ducts. These findings could represent obstruction due to malignancy versus choledocholithiasis for which MRCP/ERCP is recommended, if the patient is clinically able. Additional findings of significant hypovolemia given the appearance of the inferior vena cava. Nonobstructing calculus within the lower pole of the left kidney, increased in size from 12/08/2023 and an interval change from 2022 and 2021. Redemonstration of known metastatic osseous disease, as detailed above 12/28- GI is following: ERCP 12/29 lipase WDL, plan for surgery for cholecystectomy will (3) Elevated transaminase level: Code(s): R74.01 - Elevation of levels of liver transaminase levels Status: Acute Assessment and Plan: trending down (4) Macrocytic anemia: Code(s): D53.9 - Nutritional anemia, unspecified Status: Acute Assessment and Plan: chronic disease hemoglobin stable (5) UTI (urinary tract infection): Code(s): N39.0 - Urinary tract infection, site not specified Status: Acute Assessment and Plan: Mirian JUDD Plan 73-year-old female who arrives with her sister and her . She lives with her . Complains of right upper quadrant pain on the day of admission 12/25/2023. Became abruptly in onset while she was doing nothing in morning. Pain was persistent and radiated to her right flank. Any type of oral intake exacerbated it. She cannot eat since the morning of admission.. This also happened a few weeks ago but it was transient and she was able to forego seeking professional evaluation. Of note, the patient has a history of GERD, hypertension, breast cancer invasive ductal carcinoma of the right breast diagnosed September 21, 2018. Currently on Enhertu started April 23, 2023. - mg is replaced yesterday and today- monitor SCDs. Famotidine 20 mg IV b.i.d. Full code. Subjective Date/time seen: 12/31/23 10:17 Interval history: 73 year old female patient evaluated over the weekend with a history is metastatic breast cancer, who had a new onset epigastric/right upper quadrant pain choledocholithiasis. The patient is doing well, tolerating food, no fever no abdominal pain. on antibiotics, plan for postop day 1 from cholecystectomy Review of Systems Review of Systems: 12 systems were reviewed and are negative except for as per HPI. All systems reviewed & are unremarkable except as noted in HPI and below (Subjective) Exam Narrative: General: well appearing, appears stated age. HEENT: normocephalic, atraumatic. Mucous membranes moist. EOMI, PERRLA, bilateral sclera anicteric, no conjunctival injection. Neck supple without JVD, lymphadenopathy, or bruit. Respiratory: clear to ascultation bilaterally. No rales/rhonic/wheezes. Cardiovascular: Regular rate and rhythm, normal S1-S2 upon ascultation. No murmurs, rubs, or clicks. PMI is nondisplaced, capillary refill less than 3 second. Abdomen: Soft, round, no pulsatile masses, nondistended and nontender. No rebound, no guarding. No CVA tenderness, no hepatosplenomegaly. Bowel sounds present to all four quadrants. No high pitch or tinkling sounds, resonant to percussion. Extremities: No cyanosis, clubbing, or edema present. Pulses are palpable 2/2. Active ROM to all four extremities. Neuro: Alert and orientated x 4. PERRLA. Cranial nerves 2-12 intact without focal deficit. Skin: Warm, dry, and intact, without rash, erythema, or lesion. Psych: pleasant, cooperative, normal speech, normal affect, no hallucinations, no dysarthia Const: General: comfortable and no acute distress Eyes: Pupils: Equal, round and reactive pupils present Neck: Neck: supple Resp: Effort & Inspection: normal respiratory effort Auscultation: clear to auscultation bilaterally Cardio: Rate: regular rate Rhythm: regular rhythm Heart sounds: no gallops, no murmurs and no rubs GI: Inspection: non-distended Other: Positive Campbell sign : General: Yes bladder normal to palpation Bimanual exam- vagina & uterus: bladder normal to palpation Neuro: Cranial nerves: Yes Equal, round and reactive pupils present Extrem: General: no edema Objective Data Vital Signs Vital Signs: Vital Signs - 24 hr 12/30/23 14:05 12/30/23 16:27 12/30/23 16:40 Temperature 98.5 F 97.6 F Pulse Rate 104 H 115 H 102 H Respiratory Rate 18 18 18 Blood Pressure 142/68 H 155/74 H 154/72 H Pulse Oximetry 98 98 92 Oxygen Delivery Room Air Simple Face Mask Room Air Oxygen Flow Rate 8 12/30/23 16:55 12/30/23 16:55 12/30/23 17:37 Temperature 98.4 F 97.6 F Pulse Rate 98 86 100 Respiratory Rate 21 H 18 18 Blood Pressure 153/75 H 145/65 H 141/92 H Pulse Oximetry 96 98 97 Oxygen Delivery Room Air Oxygen Flow Rate 12/30/23 18:42 12/30/23 20:00 12/30/23 21:48 Temperature 97.7 F 98.2 F Pulse Rate 95 98 Respiratory Rate 18 18 Blood Pressure 143/63 H 153/82 H Pulse Oximetry 97 96 Oxygen Delivery Room Air Oxygen Flow Rate 12/31/23 02:44 12/31/23 06:44 12/31/23 08:29 Temperature 98.1 F 97.8 F Pulse Rate 91 94 Respiratory Rate 20 20 Blood Pressure 142/83 H 140/72 Pulse Oximetry 98 100 Oxygen Delivery Room Air Oxygen Flow Rate Intake/Output Intake/Output: Intake & Output 12/28/23 12/29/23 12/30/23 12/31/23 23:59 23:59 23:59 23:59 Intake Total 2863.8 3426 2790 600 Balance 2863.8 3426 2790 600 Meds/Results Medications: Active Medications Generic Name Dose Route Start Last Admin Trade Name Freq PRN Reason Stop Dose Admin Acetaminophen 500 mg 12/30/23 16:59 12/30/23 23:21 Acetaminophen 500 Mg Tablet PO 500 mg Q6H PRN Administration Pain Rated 1-3 Hydrocodone Bitart/Acetaminophen 1 tab 12/30/23 16:59 Hydrocodone/Acetaminophen (*Crx) 5-325 Mg Tablet PO Q4H PRN Pain Rated 4-6 Hydrocodone Bitart/Acetaminophen 1 tab 12/30/23 16:59 Hydrocodone/Acetaminophen (*Crx) 7.5-325 Mg Tablet PO Q4H PRN Pain Rated 7-10 Ascorbic Acid 500 mg 12/26/23 17:00 12/31/23 08:29 Ascorbic Acid 500 Mg Tablet PO 500 mg BID AMADO Administration Cyanocobalamin 1,000 mcg 12/27/23 09:00 12/31/23 08:29 Cyanocobalamin 1,000 Mcg Tablet PO 1,000 mcg DAILY AMADO Administration Diphenoxylate HCl/Atropine 1 tablet 12/26/23 15:49 12/29/23 23:47 Diphenoxylate/Atropine (*Crx) 2.5 Mg Tablet PO 1 tablet PRN PRN Administration Diarrhea Doxycycline Hyclate 100 mg 12/26/23 21:00 12/31/23 08:29 Doxycycline Hyclate 100 Mg Tablet PO 100 mg Q12HR AMADO Administration Enoxaparin Sodium 40 mg 12/31/23 09:00 12/31/23 08:29 Enoxaparin 40 Mg/0.4 Ml Syringe SUB-Q 40 mg DAILY AMADO Administration Famotidine 20 mg 12/27/23 09:00 12/31/23 08:29 Famotidine 20 Mg Tablet PO 20 mg DAILY AMADO Administration Ferrous Sulfate 325 mg 12/26/23 17:00 12/30/23 16:11 Ferrous Sulfate [address] PO Not Given 1200,1700 AMADO Folic Acid 0.8 mg 12/27/23 09:00 12/31/23 08:29 Folic Acid 0.4 Mg Tablet PO 01/26/24 08:59 0.8 mg DAILY AMADO Administration Lisinopril 20 mg 12/27/23 09:00 12/31/23 08:29 Lisinopril 20 Mg Tablet PO 20 mg DAILY AMADO Administration Loperamide HCl 2 mg 12/26/23 16:18 12/29/23 08:52 Loperamide Hcl 2 Mg Capsule PO 2 mg PRN PRN Administration Diarrhea Magnesium Oxide 400 mg 12/28/23 09:00 12/31/23 08:29 Magnesium Oxide 400 Mg Tablet PO 400 mg DAILY AMADO Administration Metronidazole 500 mg 12/28/23 14:00 12/31/23 06:10 Metronidazole 500 Mg Tablet PO 500 mg Q8HR AMADO Administration Morphine Sulfate 2 mg 12/30/23 16:59 Morphine Sulfate (*Crx) 2 Mg/Ml Inj IV PUSH Q2H PRN Breakthrough Pain Rated 4-6 or NPO Morphine Sulfate 4 mg 12/30/23 16:59 Morphine Sulfate (*Crx) 4 Mg/Ml Inj IV PUSH Q2H PRN Breakthrough Pain Rated 7-10 or NPO Multivitamins Therapeutic 1 tablet 12/27/23 09:00 12/31/23 08:29 Multivitamins Therapeutic Tab (*Bkc) PO 1 tablet DAILY AMADO Administration Naloxone HCl 0.1 mg 12/30/23 16:59 Naloxone Hcl 0.4 Mg/Ml Vial IV PUSH Q2M PRN Opiate Reversal Ondansetron HCl 4 mg 12/25/23 20:16 12/29/23 12:59 Ondansetron Inj 4 Mg/2 Ml Vial IV PUSH 4 mg Q4H PRN Administration Nausea Pantoprazole Sodium 40 mg 12/29/23 09:00 12/31/23 08:29 Pantoprazole 40 Mg Tablet PO 40 mg QAM AMADO Administration Radiology Results: ITS Impressions Upper Quadrant Ultrasound 12/25/23 16:11 IMPRESSION: Cholelithiasis. Otherwise, Unremarkable right upper quadrant ultrasound of the abdomen. Abdomen/Pelvis CT 12/25/23 18:37 IMPRESSION: Gallbladder hydrops with indeterminate attenuation within the dilated common bile duct with extension to the central most intrahepatic ducts. These findings could represent obstruction due to malignancy versus choledocholithiasis for which MRCP/ERCP is recommended, if the patient is clinically able. Additional findings of significant hypovolemia given the appearance of the inferior vena cava. Nonobstructing calculus within the lower pole of the left kidney, increased in size from 12/08/2023 and an interval change from 2022 and 2021. Redemonstration of known metastatic osseous disease, as detailed above These findings were discussed with Dr. Santos, caring for the patient in the ER at 7:00 PM on 12/25/2023 MRCP 12/26/23 08:20 IMPRESSION: 1. Acute interstitial pancreatitis. 2. Choledocholithiasis with intrahepatic and extrahepatic biliary duct dilatation. 3. Cholelithiasis. 4. Widespread sclerotic lesions of bone, consistent with metastatic disease. 5. 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 Endo Retro Cholangiopancreatogram 12/28/23 14:25 IMPRESSION: 1. Choledocholithiasis. Please refer to the ERCP procedure note for additional d etails. Labs Labs: Laboratory Results - last 24 hr 12/30/23 12/31/23 06:12 08:30 WBC 8.3 RBC 2.52 L Hgb 8.9 L Hct 27.1 L MCV 107.5 H MCH 35.3 H MCHC 32.8 RDW 16.7 H Plt Count 227 MPV 10.5 H Sodium 139 Potassium 3.1 L Chloride 106 Carbon Dioxide 23 Anion Gap 10 BUN 8 Creatinine 0.90 Estim Creat Clear Calc 50 Estimated GFR > 60 Glucose 94 Calcium 9.5 Lipase 37 Vitamin B12 > 1000.0 H Folate > 20.0 H Quality VTE Prophylaxis VTE prophylaxis: mechanical ordered
[2023-12-31 10:43] VITALS: BP 144/72; PULSE 98; RESP 16; TEMP 36.8; O2SAT 98
[2023-12-31] MEDS: FERROUS SULFATE 325 MG TABLET DR PO (11:07)
[2023-12-31] MEDS: LOPERAMIDE HCL 2 MG CAPSULE PO (11:07)
--- NOTE | 2023-12-31 13:24 | P.PNGS_ITS ---
Progress Note: A&P Assessment and Plan (1) Cholelithiasis: Code(s): K80.20 - Calculus of gallbladder without cholecystitis without obstruction Status: Acute Assessment and Plan: * Doing well on POD#1. OK to discharge from surgical standpoint. Follow up in 2 weeks in office. Discharge instructions discussed with patient. (2) Elevated LFTs: Code(s): R79.89 - Other specified abnormal findings of blood chemistry Status: Acute (3) Breast cancer metastasized to bone: Code(s): C50.919 - Malignant neoplasm of unspecified site of unspecified female breast; C79.51 - Secondary malignant neoplasm of bone Status: Acute Subjective Subjective Date/Time Seen: 12/31/23 13:24 Interval history: Tolerating diet. pain controlled. no nausea/vomiting. Exam GI: Inspection: non-distended and incision (intact with glue, ecchymosis) GI Palp: Yes Soft to palpation and Yes Tenderness to palpation present (GI) (incisional) Objective Data Vital Signs Vital Signs: Vital Signs - 24 hr 12/30/23 14:05 12/30/23 16:27 12/30/23 16:40 Temperature 98.5 F 97.6 F Pulse Rate 104 H 115 H 102 H Respiratory Rate 18 18 18 Blood Pressure 142/68 H 155/74 H 154/72 H Pulse Oximetry 98 98 92 Oxygen Delivery Room Air Simple Face Mask Room Air Oxygen Flow Rate 8 12/30/23 16:55 12/30/23 16:55 12/30/23 17:37 Temperature 98.4 F 97.6 F Pulse Rate 98 86 100 Respiratory Rate 21 H 18 18 Blood Pressure 153/75 H 145/65 H 141/92 H Pulse Oximetry 96 98 97 Oxygen Delivery Room Air Oxygen Flow Rate 12/30/23 18:42 12/30/23 20:00 12/30/23 21:48 Temperature 97.7 F 98.2 F Pulse Rate 95 98 Respiratory Rate 18 18 Blood Pressure 143/63 H 153/82 H Pulse Oximetry 97 96 Oxygen Delivery Room Air Oxygen Flow Rate 12/31/23 02:44 12/31/23 06:44 12/31/23 08:29 Temperature 98.1 F 97.8 F Pulse Rate 91 94 Respiratory Rate 20 20 Blood Pressure 142/83 H 140/72 Pulse Oximetry 98 100 Oxygen Delivery Room Air Oxygen Flow Rate 12/31/23 10:43 Temperature 98.3 F Pulse Rate 98 Respiratory Rate 16 Blood Pressure 144/72 H Pulse Oximetry 98 Oxygen Delivery Oxygen Flow Rate Intake/Output Intake/Output: Intake & Output 12/28/23 12/29/23 12/30/23 12/31/23 23:59 23:59 23:59 23:59 Intake Total 2863.8 3426 2790 1050 Balance 2863.8 3426 2790 1050 Meds/Results Medications: Active Medications Generic Name Dose Route Start Last Admin Trade Name Freq PRN Reason Stop Dose Admin Acetaminophen 500 mg 12/30/23 16:59 12/30/23 23:21 Acetaminophen 500 Mg Tablet PO 500 mg Q6H PRN Administration Pain Rated 1-3 Hydrocodone Bitart/Acetaminophen 1 tab 12/30/23 16:59 Hydrocodone/Acetaminophen (*Crx) 5-325 Mg Tablet PO Q4H PRN Pain Rated 4-6 Hydrocodone Bitart/Acetaminophen 1 tab 12/30/23 16:59 Hydrocodone/Acetaminophen (*Crx) 7.5-325 Mg Tablet PO Q4H PRN Pain Rated 7-10 Ascorbic Acid 500 mg 12/26/23 17:00 12/31/23 08:29 Ascorbic Acid 500 Mg Tablet PO 500 mg BID AMADO Administration Cyanocobalamin 1,000 mcg 12/27/23 09:00 12/31/23 08:29 Cyanocobalamin 1,000 Mcg Tablet PO 1,000 mcg DAILY AMADO Administration Diphenoxylate HCl/Atropine 1 tablet 12/26/23 15:49 12/29/23 23:47 Diphenoxylate/Atropine (*Crx) 2.5 Mg Tablet PO 1 tablet PRN PRN Administration Diarrhea Doxycycline Hyclate 100 mg 12/26/23 21:00 12/31/23 08:29 Doxycycline Hyclate 100 Mg Tablet PO 100 mg Q12HR AMADO Administration Enoxaparin Sodium 40 mg 12/31/23 09:00 12/31/23 08:29 Enoxaparin 40 Mg/0.4 Ml Syringe SUB-Q 40 mg DAILY AMADO Administration Famotidine 20 mg 12/27/23 09:00 12/31/23 08:29 Famotidine 20 Mg Tablet PO 20 mg DAILY AMADO Administration Ferrous Sulfate 325 mg 12/26/23 17:00 12/31/23 11:07 Ferrous Sulfate [address] PO 325 mg 1200,1700 AMADO Administration Folic Acid 0.8 mg 12/27/23 09:00 12/31/23 08:29 Folic Acid 0.4 Mg Tablet PO 01/26/24 08:59 0.8 mg DAILY AMADO Administration Lisinopril 20 mg 12/27/23 09:00 12/31/23 08:29 Lisinopril 20 Mg Tablet PO 20 mg DAILY AMADO Administration Loperamide HCl 2 mg 12/26/23 16:18 12/31/23 11:07 Loperamide Hcl 2 Mg Capsule PO 2 mg PRN PRN Administration Diarrhea Magnesium Oxide 400 mg 12/28/23 09:00 12/31/23 08:29 Magnesium Oxide 400 Mg Tablet PO 400 mg DAILY AMADO Administration Metronidazole 500 mg 12/28/23 14:00 12/31/23 06:10 Metronidazole 500 Mg Tablet PO 500 mg Q8HR AMADO Administration Morphine Sulfate 2 mg 12/30/23 16:59 Morphine Sulfate (*Crx) 2 Mg/Ml Inj IV PUSH Q2H PRN Breakthrough Pain Rated 4-6 or NPO Morphine Sulfate 4 mg 12/30/23 16:59 Morphine Sulfate (*Crx) 4 Mg/Ml Inj IV PUSH Q2H PRN Breakthrough Pain Rated 7-10 or NPO Multivitamins Therapeutic 1 tablet 12/27/23 09:00 12/31/23 08:29 Multivitamins Therapeutic Tab (*Bkc) PO 1 tablet DAILY AMADO Administration Naloxone HCl 0.1 mg 12/30/23 16:59 Naloxone Hcl 0.4 Mg/Ml Vial IV PUSH Q2M PRN Opiate Reversal Ondansetron HCl 4 mg 12/25/23 20:16 12/29/23 12:59 Ondansetron Inj 4 Mg/2 Ml Vial IV PUSH 4 mg Q4H PRN Administration Nausea Pantoprazole Sodium 40 mg 12/29/23 09:00 12/31/23 08:29 Pantoprazole 40 Mg Tablet PO 40 mg QAM AMADO Administration Radiology Results: ITS Impressions Upper Quadrant Ultrasound 12/25/23 16:11 IMPRESSION: Cholelithiasis. Otherwise, Unremarkable right upper quadrant ultrasound of the abdomen. Abdomen/Pelvis CT 12/25/23 18:37 IMPRESSION: Gallbladder hydrops with indeterminate attenuation within the dilated common bile duct with extension to the central most intrahepatic ducts. These findings could represent obstruction due to malignancy versus choledocholithiasis for which MRCP/ERCP is recommended, if the patient is clinically able. Additional findings of significant hypovolemia given the appearance of the inferior vena cava. Nonobstructing calculus within the lower pole of the left kidney, increased in size from 12/08/2023 and an interval change from 2022 and 2021. Redemonstration of known metastatic osseous disease, as detailed above These findings were discussed with Dr. Santos, caring for the patient in the ER at 7:00 PM on 12/25/2023 MRCP 12/26/23 08:20 IMPRESSION: 1. Acute interstitial pancreatitis. 2. Choledocholithiasis with intrahepatic and extrahepatic biliary duct dilatation. 3. Cholelithiasis. 4. Widespread sclerotic lesions of bone, consistent with metastatic disease. 5. 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 Endo Retro Cholangiopancreatogram 12/28/23 14:25 IMPRESSION: 1. Choledocholithiasis. Please refer to the ERCP procedure note for additional details. Labs Labs: Laboratory Results - last 24 hr 12/31/23 08:30 WBC 8.3 RBC 2.52 L Hgb 8.9 L Hct 27.1 L MCV 107.5 H MCH 35.3 H MCHC 32.8 RDW 16.7 H Plt Count 227 MPV 10.5 H Sodium 139 Potassium 3.1 L Chloride 106 Carbon Dioxide 23 Anion Gap 10 BUN 8 Creatinine 0.90 Estim Creat Clear Calc 50 Estimated GFR > 60 Glucose 94 Calcium 9.5
[2023-12-31 14:44] VITALS: BP 137/64; PULSE 96; RESP 16; TEMP 36.6; O2SAT 97
--- NOTE | 2023-12-31 15:17 | P.DS_ITS ---
DS: Admitting Diagnosis Discharge Date 12/31/2023 Admitting Diagnosis right upper quadrant pain and UTI DS: Discharge Diagnosis Discharge Diagnosis (1) Choledocholithiasis: Code(s): K80.50 - Calculus of bile duct without cholangitis or cholecystitis without obstruction Status: Acute Assessment and Plan: GI consulted ordered, notes reviewed: This patient has clear evidence of cholelithiasis and choledocholithiasis with jaundice, markedly increased AST and ALT levels and an MRCP demonstrating the presence of a common bile duct stone. Will start antibiotics, will check INR tomorrow and will plan ERCP on Thursday. On the other hand, magnesium level is noticed to be low, and suggest correcting it during the weekend. In the meantime, patient can have a regular diet and will be kept NPO after midnight on Thursday for ERCP on Thursday at noon. - continue antibiotics- nausea/pain control -GI is following- status post ERCP Patient's common bile duct is clear from stones. cholecystectomy on 12/30/2023 (2) Abdominal pain, RUQ: Code(s): R10.11 - Right upper quadrant pain Status: Acute Assessment and Plan: CT abdomen pelvis with contrast demonstrated: Gallbladder hydrops with indeterminate attenuation within the dilated common bile duct with extension to the central most intrahepatic ducts. These findings could represent obstruction due to malignancy versus choledocholithiasis for which MRCP/ERCP is recommended, if the patient is clinically able. Additional findings of significant hypovolemia given the appearance of the inferior vena cava. Nonobstructing calculus within the lower pole of the left kidney, increased in size from 12/08/2023 and an interval change from 2022 and 2021. Redemonstration of known metastatic osseous disease, as detailed above 12/28- GI is following: ERCP 12/29 lipase WDL, plan for surgery for cholecystectomy will (3) Elevated transaminase level: Code(s): R74.01 - Elevation of levels of liver transaminase levels Status: Acute Assessment and Plan: trending down (4) Macrocytic anemia: Code(s): D53.9 - Nutritional anemia, unspecified Status: Acute Assessment and Plan: chronic disease cancer hemoglobin stable (5) UTI (urinary tract infection): Code(s): N39.0 - Urinary tract infection, site not specified Status: Acute Assessment and Plan: resolved Rocephin DC Plan 73-year-old female who arrives with her sister and her . She lives with her . Complains of right upper quadrant pain on the day of admission 12/25/2023. Became abruptly in onset while she was doing nothing in morning. Pain was persistent and radiated to her right flank. Any type of oral intake exacerbated it. She cannot eat since the morning of admission.. This also happened a few weeks ago but it was transient and she was able to forego seeking professional evaluation. Of note, the patient has a history of GERD, hypertension, breast cancer invasive ductal carcinoma of the right breast diagnosed September 21, 2018. Currently on Enhertu started April 23, 2023. - mg is replaced yesterday and today- monitor SCDs. Famotidine 20 mg IV b.i.d. Full code. DS: Summary Hospital Course Reason for hospitalization: choledocholithiasis and UTI Hospital Course: 73-year-old female who arrives with her sister and her . She lives with her . Complains of right upper quadrant pain on the day of admission 12/25/2023. Became abruptly in onset while she was doing nothing in morning. Pain was persistent and radiated to her right flank. Any type of oral intake exacerbated it. She cannot eat since the morning of admission.. This also happened a few weeks ago but it was transient and she was able to forego seeking professional evaluation. Of note, the patient has a history of GERD, hypertension, breast cancer invasive ductal carcinoma of the right breast diagnosed September 21, 2018. Currently on Enhertu started April 23, 2023. patient had a CT that showed Cholelithiasis. Otherwise, Unremarkable right upper quadrant ultrasound of the abdomen. Gallbladder hydrops with indeterminate attenuation within the dilated common bile duct with extension to the central most intrahepatic ducts. These findings could represent obstruction due to malignancy versus choledocholithiasis for which MRCP/ERCP is recommended, if the patient is clinically able. GI was consulted with MRCP performed that showed Acute interstitial pancreatitis, Choledocholithiasis with intrahepatic and extrahepatic biliary duct dilatation and Cholelithiasis. on 12/28/2023 patient had a ERCP. on 12/30/2023 the patient's lipase resolved with improvement in LFTs and patient had a cholecystectomy. On the day of discharge patient complains of moderate pain at 1 of the port sites but it overall is doing well eating and drinking fine. Status at Discharge Functional status at discharge: independent ambulation Time Spent with Patient Time attestation: Total time spent providing and/or coordinating discharge services: Exam Narrative: General: well appearing, appears stated age. HEENT: normocephalic, atraumatic. Mucous membranes moist. EOMI, PERRLA, bilateral sclera anicteric, no conjunctival injection. Neck supple without JVD, lymphadenopathy, or bruit. Respiratory: clear to auscultation bilaterally. No rales/rhonic/wheezes. Cardiovascular: Regular rate and rhythm, normal S1-S2 upon auscultation. No murmurs, rubs, or clicks. PMI is nondisplaced, capillary refill less than 3 second. Abdomen: Soft, round, no pulsatile masses, nondistended and nontender. No rebound, no guarding. No CVA tenderness, no hepatosplenomegaly. Bowel sounds present to all four quadrants. No high pitch or tinkling sounds, resonant to percussion. Laparoscopic sites with Dermabond, bruising around the umbilicus Extremities: No cyanosis, clubbing, or edema present. Pulses are palpable 2/2. Active ROM to all four extremities. Neuro: Alert and orientated x 4. PERRLA. Cranial nerves 2-12 intact without focal deficit. Skin: Warm, dry, and intact, without rash, erythema, or lesion. Psych: pleasant, cooperative, normal speech, normal affect, no hallucinations, no dysarthria Const: General: comfortable and no acute distress Eyes: Pupils: Equal, round and reactive pupils present Neck: Neck: supple Resp: Effort & Inspection: normal respiratory effort Auscultation: clear to auscultation bilaterally Cardio: Rate: regular rate Rhythm: regular rhythm Heart sounds: no gallops, no murmurs and no rubs GI: Inspection: non-distended Other: Positive Campbell sign : General: Yes bladder normal to palpation Bimanual exam- vagina & uterus: bladder normal to palpation Neuro: Cranial nerves: Yes Equal, round and reactive pupils present Extrem: General: no edema DS: Data Data Completed and Pending Pending studies at discharge: Pending at discharge 12/30/23 16:16 Surgical [PTH] Routine Labs on day of discharge: Labs from last 24 hours 12/31/23 08:30 WBC 8.3 RBC 2.52 L Hgb 8.9 L Hct 27.1 L MCV 107.5 H MCH 35.3 H MCHC 32.8 RDW 16.7 H Plt Count 227 MPV 10.5 H Sodium 139 Potassium 3.1 L Chloride 106 Carbon Dioxide 23 Anion Gap 10 BUN 8 Creatinine 0.90 Estim Creat Clear Calc 50 Estimated GFR > 60 Glucose 94 Calcium 9.5 Discharge Plan Discharge Attending physician on discharge: Dre Russell Consulting providers: Kb López Discharging Clinician: Yennifer Gunter Anticipated Discharge Date/Time: 12/31/23 15:28 Patient Disposition: Home, Self-Care Activity: other - see discharge instructions Diet: low fat Wound Care Instructions: other - see discharge instructions Discharge Instructions: DISCHARGE INSTRUCTION SHEET FOR HERNIA, GALLBLADDER AND APPENDIX SURGERIES DR. LÓPEZ PATIENT TO TAKE HOME 1. May shower, no soaking in bath x 2weeks. 2. Call office for: * Wound increasingly painful or bleeding * Vomiting * Fever of greater than 101 degrees 3. If no bowel movement for three days, take 1 oz. (30 ml) Milk of Magnesia or MiraLax 17g 1 to 2 times daily. 4. No heavy lifting > 10-15 pounds x __2___ 5. No driving for 3 days or while taking narcotic pain medications. 6. Ice to surgical site for 48 hours (30 min on, then 30 min off). 7. Up walking 10-30 minutes three times per day. 8. Resume previous home medications. 9. Follow-up 10-14 days in office for wound check or as previously scheduled. ([phone]) 10. Oral pain medications prescription to be sent to pharmacy. Take Tylenol 500mg every 6 hours and Ibuprofen 600mg every 6 hours for the first 2 days, then as needed. 11. NUTRITION: Start out by drinking fluids and increase your diet as tolerated. If you experience nausea, try dry toast, crackers, and 7-UP. If nausea or vomiting persists, contact your surgeon?s office. 12. Gallbladders-Low Fat Diet for 2 weeks (send care note of low fat diet) Revised June 2018 Patient Instructions: Antibiotic Form Stand Alone Forms: General Discharge Information Follow-up/Referrals: Kb López, [Physician] - 2 Weeks Discharge Medications: New hydrocodone-acetaminophen 5-325 mg tablet 1 tablet PO Q4H PRN (Reason: pain) Qty: 10 0RF Continued multivitamin Tablet 1 tablet PO DAILY famotidine 20 mg Tablet 20 mg PO DAILY Rx Instructions: before dinner ascorbic acid (vitamin C) 500 mg Tablet 500 mg PO BID doxycycline hyclate 100 mg 1 tablet PO BID vitamin F42-jrazl acid 1-0.8 mg Tablet 1,000 tablet PO DAILY ferrous sulfate 325 mg (65 mg iron) Tablet 325 mg PO BID acetaminophen 500 mg Capsule 1,000 mg PO Q8H PRN (Reason: Pain) diphenoxylate-atropine 2.5-0.025 mg tablet 1 tablet PO PRN PRN (Reason: Diarrhea) ondansetron 8 mg tablet,disintegrating 8 mg PO Q8H PRN (Reason: Nausea) lisinopril 20 mg tablet 20 mg PO DAILY loperamide [Imodium] 2 mg Capsule 2 mg PO PRN PRN (Reason: Diarrhea) Rx Instructions: if lomotil is not effective Date of admission: 12/26/23 12:50 Primary Care Provider: Alexey Medrano Admitting Provider: Carlie Farrell Attending physician on admission: Carlie Farrell Condition: Improved Quality VTE Prophylaxis VTE prophylaxis: mechanical ordered Hospitalist MIPS Heart Failure (Exclusion) Patient has history of Heart Transplant or Left Ventricular Assistive Device?: No IF YES, STOP HERE Heart Failure (Qualifier) Patient has current or prior documentation of LVEF less than or equal to 40%, or mod/servere depressed LVSF?: No IF NO, STOP HERE
== END 2023-12-31 16:25 | disposition home or self-care (01) | DRG 417 ==
LOC: ANHED 21:17 → ANH3MED 21:26
PROVIDERS: Internal Medicine Gastroenterology; Nurse Practitioner; Nurse Practitioner Family; Physician Assistant; Surgery; Admitting Provider General Practice; Emergency Provider Emergency Medicine; PCP Internal Medicine; Visit Provider Nurse Practitioner Gerontology
PROC: 0F798ZZ Dilation of Common Bile Duct, Via Natural or Artificial Opening Endoscopic (ICD-10-PCS; CPT 43260; principal; 2023-12-28 12:30)
PROC: 0FT44ZZ Resection of Gallbladder, Percutaneous Endoscopic Approach (ICD-10-PCS; CPT 47562; principal; 2023-12-30 15:30)
DX: K80.70 Calculus of gallbladder and bile duct without cholecystitis without obstruction (principal); K85.10 Biliary acute pancreatitis without necrosis or infection; C79.51 Secondary malignant neoplasm of bone; K82.1 Hydrops of gallbladder; K26.9 Duodenal ulcer, unspecified as acute or chronic, without hemorrhage or perforation; C50.911 Malignant neoplasm of unspecified site of right female breast; D64.9 Anemia, unspecified; K21.9 Gastro-esophageal reflux disease without esophagitis; I10 Essential (primary) hypertension; E83.42 Hypomagnesemia; Z90.49 Acquired absence of other specified parts of digestive tract
CPT/HCPCS: 36415; 74176; 74183; 74329; 76376; 76705; 80048; 80053; 81001; 82248; 82607; 82746; 82948; 83690; 83735; 84100; 85025; 85027; 85610; 86850; 86900; 86901; 87086; 88304; 96361; 96374; 96375; 99285; A9270; A9577; G0378; J0330; J0696; J1100; J1171; J1650; J2003; J2270; J2371; J2405; J2704; J3010; J3475; J3480; J7030; J7120; Q9966

== ENCOUNTER 2024-02-29 09:25 | Outpatient (CLI) | payer MEDICARE, OTHER, SELFPAY ==
--- NOTE | 2024-02-29 | ECHO_ITS ---
Patient Info Name: Syeda Marks Age: 73 years : 1950 Gender: Female Ht: 64 in Wt: 178 lbs BSA: 1.94 m2 HR: 82 bpm BP: 134 / 66 mmHg Heart Rhythm: Sinus Rhythm Technical Quality: Good Exam Date: 02/29/2024 10:00 AM Exam Location: Echo Lab Patient Status: Outpatient Admit Date: 02/29/2024 Staff Ordering Physician: Kiran Rivera MD Pyrometer Temperature Regulator: Selma Collins RDCS Attending Provider: Kiran Rivera MD Referring Physician: Miguel HOWELL; Exam Type: CA echo doppler color flow Study Info Indications - breast cancer of right breast, chemo Complete two-dimensional, color flow and Doppler transthoracic echocardiogram is performed. Strain analysis performed. Summary 1. Complete two-dimensional, color flow and Doppler transthoracic echocardiogram is performed. 2. Normal left ventricular function was seen. Ejection fraction was 60%. 3. Left ventricular chamber size was normal and there was no evidence of LVH. 4. Left ventricular diastolic function is grade 1. 5. Global longitudinal strain is normal at -21.4% which is similar to what it was last time in October of 2023. 6. Left atrial and right atrial size was normal. 7. No pericardial effusion. 8. Aortic root was also normal. 9. Estimated PA pressure was 10/19/2028 which is normal pulmonary pressures. Left Ventricle Left ventricular chamber dimension is normal. Left ventricular systolic function is normal, estimated at 65-70%. There is no increased left ventricular wall thickness. Left ventricular septal wall motion is normal. The left ventricular diastolic function is grade I diastolic dysfunction. Right Ventricle Right ventricular chamber dimension is normal. Right ventricular systolic function is normal. Left Atria Left atrial chamber dimension is normal. Right Atria Right atrial chamber dimension is normal. Aortic Valve The aortic valve is trileaflet. There is no aortic valve stenosis. There is no aortic valve regurgitation. Mitral Valve The mitral valve has normal leaflets. There is no mitral valve stenosis. There is no mitral valve regurgitation. Tricuspid Valve The tricuspid valve leaflets are normal. There is trace tricuspid valve regurgitation. No pulmonary hypertension, estimated pulmonary arterial systolic pressure is 30 mmHg. Pericardium/Pleural The pericardium appears normal. There is no pericardial effusion. Aorta The aortic root size at the sinus of Valsalva is normal. Left Ventricular Outflow Tract Name Value Normal LVOT 2D LVOT Diameter 2.0 cm LVOT Doppler LVOT Peak Gradient 3 mmHg LVOT Mean Gradient 1 mmHg LVOT VTI 14 cm LVOT VTI/AV VTI Ratio 0.6 LVOT Stroke Volume 46 ml LVOT CO 3.6 l/min LVOT CI 1.9 l/min/m2 Pulmonic Valve Name Value Normal RVOT Doppler RVOT Peak Gradient 3 mmHg PV Doppler PV Peak Gradient 11 mmHg Mitral Valve Name Value Normal MV Doppler MV Decel Clinch 344 cm/s2 MV PHT 51 ms MV Area (PHT) 4.3 cm2 4.0-5.0 MV Diastolic Function MV E Peak Velocity 61 cm/s MV A Peak Velocity 69 cm/s MV E/A 0.9 MV Decel Time 177 ms MV Annular TDI MV E/e' (Septal) 6.5 <=8.0 MV E/e' (Lateral) 6.5 <=8.0 MV E/e' (Average) 6.5 Tricuspid Valve Name Value Normal TV Regurgitation Doppler TR Peak Velocity 222 cm/s TR Peak Gradient 20 mmHg Estimated PAP/RSVP RA Pressure 10 mmHg <=5 PA Systolic Pressure 30 mmHg <36 RV Systolic Pressure 30 mmHg <36 Aorta Name Value Normal Ascending Aorta Ao Root Diameter (MM) 2.7 cm Ao Root Diam Index (MM) 1.4 cm/m2 Aortic Valve Name Value Normal AV Doppler AV Peak Velocity 129 cm/s AV Peak Gradient 7 mmHg AV Mean Gradient 3 mmHg AV VTI 22 cm AV Area (Cont Eq VTI) 2.1 cm2 >=3.0 AV Area (Cont Eq Carlos) 2.1 cm2 AV Regurgitation 2D LVOT Area 3.3 cm2 Ventricles Name Value Normal LV Dimensions 2D/MM IVS Diastolic Thickness (2D) 0.9 cm 0.6-1.0 LVID Diastole (2D) 3.7 cm 3.8-5.2 LVIW Diastolic Thickness (2D) 0.9 cm 0.6-0.9 LVID Systole (2D) 2.4 cm 2.2-3.5 LVOT Diameter 2.0 cm LV Mass (2D Cubed) 95.96 g 67.00-162.00 LV Mass Index (2D Cubed) 50 g/m2 43-95 Relative Wall Thickness (2D) 0.50 LV Fractional Shortening/Ejection Fraction 2D/MM LV Fractional Shortening (2D) 35 % 27-45 LV EF (2D Teicholz) 66 % 54-74 LV Diastolic Volume (4C MOD) 80 ml LV EF (4C MOD) 73 % LV Diastolic Volume (2C MOD) 53 ml LV EF (2C MOD) 69 % LV Diastolic Volume (BP MOD) 66 ml 46-106 LV Diastolic Volume Index (BP MOD) 34 ml/m2 29-61 LV Systolic Volume (BP MOD) 19 ml 14-42 LV Systolic Volume Index (BP MOD) 10 ml/m2 8-24 LV EF (BP MOD) 71 % 54-74 LV Diastolic Length (4C) 8.1 cm LV Systolic Length (4C) 6.2 cm LV Stroke Volume (4C MOD) 58 ml Atria Name Value Normal LA Dimensions LA Dimension (MM) 4.3 cm 2.7-3.8 LA Volume (4C A-L) 38 ml LA Volume (BP A-L) 42 ml RA Dimensions RA Area (4C) 9.7 cm2 <=18.0 EchoPAC Name Value Normal JUDITH AA peak sys SL (AWMA) 22.9 % AAS peak sys SL (AWMA) 26.9 % AI peak sys SL (AWMA) 26.8 % AL peak sys SL (AWMA) 20.5 % AP peak sys SL (AWMA) 25.8 % peak sys SL (AWMA) 23.2 % AVC (AWMA) 360 ms BA peak sys SL (AWMA) 17.4 % BAS peak sys SL (AWMA) 19.2 % BI peak sys SL (AWMA) 20.6 % BL peak sys SL (AWMA) 20.0 % BP peak sys SL (AWMA) 18.7 % BS peak sys SL (AWMA) 17.4 % G peak SL(A2C) (AWMA) 21.4 % G peak SL(A4C) (AWMA) 20.1 % G peak SL(APLAX) (AWMA) 22.0 % G peak SL(Avg) (AWMA) 21.2 % MA peak sys SL (AWMA) 18.4 % MAS peak sys SL (AWMA) 22.3 % ND peak sys SL (AWMA) 23.1 % ML peak sys SL (AWMA) 20.3 % MP peak sys SL (AWMA) 20.7 % MS peak sys SL (AWMA) 20.5 % Report Signatures
== END 2024-02-29 09:26 | disposition home or self-care (01) ==
LOC: ANHCARD 09:25
PROVIDERS: PCP Internal Medicine; Visit Provider Internal Medicine Hematology & Oncology
DX: Z01.818 Encounter for other preprocedural examination (principal); C50.411 Malignant neoplasm of upper-outer quadrant of right female breast; I51.89 Other ill-defined heart diseases
CPT/HCPCS: 93306

== ENCOUNTER 2024-05-17 10:00 | Outpatient (CLI) | payer MEDICARE, OTHER, SELFPAY ==
--- NOTE | ~2024-05-17 | CT_ITS ---
Clinical Indication: Invasive ductal carcinoma CT Scan of the Chest, Abdomen, and Pelvis without Contrast: Technique: Contiguous sections were acquired throughout the chest, abdomen, and pelvis without IV con trast administration. Dose reduction technique was used on this scan by utilizing automated exposure control and iterative reconstruction technique. The dose-length product (DLP) was 683.48 mGy-cm. Comparison: 12/25/2023 and 12/08/2023 Findings: There is no evidence of any significant mediastinal, hilar or axillary lymphadenopathy. The mediastin al soft tissues appear normal. There is no evidence of pleural or pericardial effusion. There are several irregular nodular opacities in lung bases bilaterally, with additional peripheral c onsolidation in the posterior right lung apex/upper lobe. There is probable mild post radiation fisher e in the right middle lobe. The liver, spleen, pancreas, adrenals and right kidney are within normal limits. 3 mm nonobstructing left renal stone present. Cholecystectomy clips are present. No evidence of aortic aneurysm. No lymp hadenopathy. No bowel obstruction or bowel wall thickening. Stable calcified amorphous mass in the mid mesentery.. Urinary bladder is unremarkable. Enlarged multi fibroid uterus again present. Diffuse osseous metastatic disease is similar to prior exam. Stable mild compression deformity of L1 noted superior endplate. Stable additional compression deformities of T9 and T12. Impression: Several irregular nodular opacities in the lung apices with peripheral consolidation the posterior ri ght lung apex. Findings could reflect infectious/inflammatory process or postradiation change. Metast atic disease not completely excluded, though felt to be less likely based on morphologic appearance. Probable mild postradiation change right middle lobe. Stable diffuse osseous metastatic disease. Stable compression deformity of T9, T12, and L1. Stable calcified mass in the mid mesentery. Enlarged multi fibroid uterus. Reviewed, dictated and finalized at [facility]. Impression: Several irregular nodular opacities in the lung apices with peripheral consolid ation the posterior right lung apex. Findings could reflect infectious/inflamma tory process or postradiation change. Metastatic disease not completely exclude d, though felt to be less likely based on morphologic appearance. Probable mild postradiation change right middle lobe. Stable diffuse osseous metastatic disease. Stable compression deformity of T9, T12, and L1. Stable calcified mass in the mid mesentery. Enlarged multi fibroid uterus.
--- NOTE | ~2024-05-17 | NM_ITS ---
Whole-body bone scan: History: Breast cancer. Radiopharmaceutical: 26.4 mCi of technetium 99m MDP was administered intravenously. Procedure: Three hour delayed anterior and posterior whole-body bone scan was performed. COMPARISON: 12/08/2023 Findings: There are multifocal areas of increased uptake throughout the spine and pelvis, with additi onal areas increased uptake at the bilateral intertrochanteric regions of the proximal femora. There is additional uptake in the sternum, probable multiple subtle areas of uptake in the ribs. Spinal upt kellen is most prominent at the L5 and T10 levels, but there is multilevel uptake present.. Impression: Widespread osseous metastatic disease, similar to prior exam. Reviewed, dictated and finalized at location . Impression: Widespread osseous metastatic disease, similar to prior exam.
--- OUTSIDE RECORDS SUMMARY | 2024-05-17 11:13 | XMS_ITS | Continuity of Care Document ---
Author Organization [facility] Address [address] [facility] [address] [place] [address] Phone Care Team Providers Care Curing Oven Attendant Name Role Phone Connie Moctezuma Unavailable Unavailable Advance Directives Directive Yes / No Effective Date File Name No Information Encounters Encounter Description Practice Location Reason(s) For Visit Diagnoses Date Provider Providers Copied on Encounter [facility], [address], [place], [place], [id number], [place] tel:[phone] [facility]) No Information 5[address] Rhianna Rosales. [address] , [address], [place], [address], [place]. tel:[phone] Family History Family Member Type Diagnosis Age At Onset No Information Payers Payer name Insurance type Covered constitution party ID Authoriza tion(s) No Information Social History Type Description Quantity Date Captured Comments Sex Female Smoking Status No Information Chief Complaint And Reason For Visit No Information Reason For Referral Reason For Referral No Information History Of Present Illness Encounter Date Complaint History Of Prese nt Illness No Information Functional Status Date Functional Assessmen t No Information Instructions Date Instruction Additional Infor mation No Information Assessments Type Assessment Date No Information Patient Care Teams Name Effective Dates (start - stop) Status Members No Information
--- OUTSIDE RECORDS SUMMARY | 2024-05-17 11:13 | XMS_ITS | Encounter Summary ---
Author Organization [facility] Address [address] [place] [address] Care Team Providers Care Modern Greek Studies Professor Name Role Phone Alexey Medrano DO Primary Care Provider [phone] Encounter Details Date Type Department Care Team (Late Contact Info) Description 03/23/2019 Chart Note [facility] Radiation Therapy [address] [place] [address] [place] [address] [place] [address] Social History Tobacco Use Types Packs/Day Years Used Date Smoking Tobacco: Never Smokeless Tobacco: Never Alcohol Use Standard Drinks/Week Comments Yes 0 (1 standard drink = 0.6 oz pur e alcohol) rarely Comments No Sex and Gender Information Value Date Recorded Sex Assigned at Not on file Legal Sex Female 10:42 AM CDT Gender Identity Not on file Sexual Orientation Not on file documented as of this encounter Plan of Treatment Upcoming Encounters Date Type Department Care Team (Late st Contact Info) Description 05/31/2024 8:30 AM CDT Office Visit [facility] Oncology and Hematology - [place] [address] [facility] [address] [place] [address] Kiran Rivera MD [address] [facility] [address] [place] [address] documented as of this encounter Visit Diagnoses Not on filedocumented in this encounter Care Teams Modern Greek Studies Professor Relationship Specialty Start Date End Date Alexey Medrano DO [address] [facility] [address] [place] [id number] PCP - General Internal Medicine 12/15/23 documented as of this encounter
--- OUTSIDE RECORDS SUMMARY | 2024-05-17 11:13 | XMS_ITS | Encounter Summary ---
Author Organization [facility] Address [address] [place] [address] Care Team Providers Care Artist Model Name Role Phone Alexey Medrano DO Primary Care Provider [phone] Encounter Details Date Type Department Care Team (Late Contact Info) Description 05/11/2024 Orders Only [facility] Oncology and Hematology - [place] [address] [place] [address] [place] [address] [place] [address] [address] [place] [address] Social History Tobacco Use Types Packs/Day Years Used Date Smoking Tobacco: Never Smokeless Tobacco: Never Alcohol Use Standard Drinks/Week Comments Yes 0 (1 standard drink = 0.6 oz pur e alcohol) rarely Feeling Safe Answer Date Recorded Are you in a relationship wi th someone who hurts you emotionally and/or physically? No 02/24/2023 Food Insecurity Answer Date Recorded Social/Environmental Concerns No concerns Transportation Needs Answer Date Record ed Social/Environmental Concerns No concerns Housing Stability Answer Date Recorded Social/Environmental Concerns No concerns Utility Needs Answer Date Recorded Social/Environmental Concerns No concerns Comments No Sex and Gender Information Value Date Recorded Sex Assigned at Not on file Legal Sex Female 10:42 AM CDT Gender Identity Not on file Sexual Orientation Not on file documented as of this encounter Plan of Treatment Upcoming Encounters Date Type Department Care Team (Late Contact Info) Description 05/31/2024 8:30 AM CDT Office Visit [facility] Oncology and Hematology - [place] [address] [place] [address] Kiran Rivera MD [address] [facility] [address] [place] [address] documented as of this encounter Procedures Procedure Name Priority Date/Time Associated Diagnosis Comments BASIC METABOLIC PANEL Routine 05/10/2024 9:54 AM CDT documented in this encounter Results * BASIC METABOLIC PANEL (05/10/2024 9:54 AM CDT) Blood us Kiran Rivera MD CHEMISTRY ORDERABLES Final Resu lt documented in this encounter Visit Diagnoses Not on filedocumented in this encounter Care Teams Artist Model Relationship Specialty Start Date End Date Alexey Medrano DO [address] [place] [address] PCP - General Internal Medicine 12/15/23 documented as of this encounter
--- OUTSIDE RECORDS SUMMARY | 2024-05-17 11:13 | XMS_ITS | Encounter Summary ---
Author Organization [facility] [email or web address] [facility] Address [address] [place] [address] Care Team Providers Care Crew Leader/Control Room Operator Name Role Phone Alexey Medrano DO Primary Care Provider [phone] Reason for Visit * Reason Onset Date Comments Medication Refill 05/16/2024 Encounter Details Date Type Department Care Team (Late Contact Info) Description 05/16/2024 Refill [facility] Oncology and Hematology - [place] [address] [facility] [address] [place] [address] Kiran Rivera MD [address] [facility] [address] [place] [address] Acute diarrhea; Invasive ductal carcinoma of breast, female, right (CMS/HCC) Social History Tobacco Use Types Packs/Day Years [...] AM CDT Office Visit [facility] Oncology and Hematology - [place] [address] [facility] [address] [place] [address] Kiran Rivera MD [address] [facility] [address] [place] [address] documented as of this encounter Visit Diagnoses Diagnosis Acute diarrhea Diarrhea Invasive ductal carcinoma of breast, female, right (CMS/HCC) documented in this encounter Care Teams Crew Leader/Control Room Operator Relationship Specialty Start Date End Date Alexey Medrano DO [address] [facility] [address] [place] [address] PCP - General Internal Medicine 12/15/23 documented as of this encounter
--- OUTSIDE RECORDS SUMMARY | 2024-05-17 11:13 | XMS_ITS | Clinical Summary ---
Author Organization [facility] Address [address] [place] [address] Care Team Providers Care Media Services Specialist Name Role Phone Alexey Medrano Primary Care Provider [phone] Allergies Active Allergy Reactions Criticality Noted Date Comments Amoxicillin-Pot Clavulanate Nausea and Vomiting Low 03/03/2023 Medications lisinopril (PRINIVIL) 20 mg tablet 09/21/19 19 Active iron-vitamin C-vitamin S73-qrbnq acid-succinic acid (MULTIGEN PLUS) 238-93-19-1-50 tn-cx-riv-mg-mg Tablet tablet Take by mouth. A ctive multivitamin (DAILY-MIREYA) tablet Take 1 Tablet by mouth daily. Active ascorbic acid (VITAMIN C ORAL) Take by mouth. Activ e COVID-19 VACC,MRNA,MODER NA,-PF IM Inject by intramuscular injection. Lot [id number] Through [facility] Second shot in one month 04/02/19 21 Active ondansetron (ZOFRAN) 4 mg Tablet TAKE ONE TABLET EVERY 4-6 HOURS DAILY NEEDED 08/17/19 22 Active lidocaine-prilo keely (EMLA) 2.5-2.5 % Cream Apply to affected area see administration instructions. 30 Gram 1 11/12/19 22 Active ferrous sulfate (FEOSOL) 300 mg (60 mg iron)/5 mL solution Take 300 mg by mouth daily. Active lapatinib (TYKERB) 250 mg tabletIndicatio ns:Cancer, metastatic to bone (CMS/HCC),Malig nant neoplasm of axillary tail of right female breast, unspecified estrogen receptor status (CMS/HCC) TAKE 4 TABLETS BY MOUTH 1 TIME A DAY BEFORE BREAKFAST. 120 Tablet 5 08/19/19 23 Active letrozole (Femara) 2.5 mg tablet Take 1 Tablet (2.5 mg) by mouth daily. 90 Tablet 3 09/10/19 23 Active lidocaine-alumi num-magnesium hydroxide-simet hicone-diphenhy drAMINE mouthwashIndica tions:Cancer, metastatic to bone (CMS/HCC) Take 10 mL by mouth every 4 hours as needed for Pain. 120 mL 3 01/27/20 23 Active HYDROcodone-tariq taminophen (NORCO) 5-325 mg tabletIndicatio ns:Cancer, metastatic to bone (CMS/HCC) Take 1 Tablet by mouth every 6 hours as needed for Pain, Moderate. Max Daily Amount: 4 Tablets 60 Tablet 02/07/20 23 Active acetaminophen (TYLENOL) 325 mg tablet Take 2 Tablets (650 mg) by mouth every 6 hours as needed. 60 Tablet 3 4:36 PM CONSERVATION BIOLOGY PROFESSOR 02/29/20 23 Active ibuprofen (MOTRIN) 600 mg tablet Take 1 Tablet (600 mg) by mouth every 6 hours as needed for mild pain. 60 Tablet 3 4:36 PM CONSERVATION BIOLOGY PROFESSOR 02/29/20 23 Active Saccharomyces boulardii (FLORASTOR) 250 mg Capsule Take 1 Capsule (250 mg) by mouth 2 times daily. 60 Capsule 3 4:36 PM CONSERVATION BIOLOGY PROFESSOR 02/29/20 23 Active cefUROXime axetil (CEFTIN) 500 mg tablet Take 1 Tablet (500 mg) by mouth 2 times daily. 18 Tablet 3 4:36 PM CONSERVATION BIOLOGY PROFESSOR 02/29/20 23 Active chlorhexidine gluconate (Peridex) 0.12 % Mouthwash 10 mL by Mouth/Throat route 3 times daily. 180 mL 3 03/17/19 24 Active doxycycline hyclate (VIBRAMYCIN) 100 mg capsule Take 100 mg by mouth 2 times daily. 03/20/19 24 Active ondansetron (ZOFRAN ODT) 8 mg Tablet, Rapid Dissolve DISSOLVE ONE TABLET ON TOP OF TONGUE THEN SWALLOW WITH SALIVA EVERY 8 HOURS NEEDED FOR NAUSEA AND VOMITING 30 Tablet 1 01/25/20 24 Active prochlorperazin e maleate (COMPAZINE) 10 mg tablet Take 1 Tablet (10 mg) by mouth every 6 hours as needed for Nausea/Emesis. 30 Tablet 2 01/26/20 24 Active diphenoxylate-a tropine 2.5 mg-0.025 mg tabletIndicatio ns:Acute diarrhea,Invasi ve ductal carcinoma of breast, female, right (CMS/HCC) TAKE 1 TABLET BY MOUTH FOUR TIMES DAILY NEEDED FOR DIARRHEA OR LOOSE STOOLS 90 Tablet 1 05/17/19 25 Active diphenoxylate-a tropine 2.5 mg-0.025 mg tabletIndicatio ns:Acute diarrhea,Invasi ve ductal carcinoma of breast, female, right (CMS/HCC) TAKE 1 TABLET BY MOUTH FOUR TIMES DAILY NEEDED FOR DIARRHEA OR LOOSE STOOLS 90 Tablet 1 09/10/19 24 025 Discontin ued(Reord er) Active Problems Patient Care Coordination No te Formatting of this note migh t be different from the original. Primary Care: Sid Barrios PA-C Referring Provider: Sid Barrios PA-C [address] [place] [address] Other: Problem Noted Date Diagnosed Date Osteonecrosis of mandible 02/27/2023 Facial abscess 02/24/2023 Osteomyelitis 02/24/2023 Malignant neoplasm of axillary tail of right fem josé miguel breast 01/21/2022 Cancer, metastatic to bone 01/21/2022 Invasive ductal carcinoma of breast, female, rig ht 10/18/2018 Lump of right breast 09/21/2018 Abnormality of left breast on screening mammogra m 09/21/2018 Encounters Date Type Department Care Team Description 05/16/2024 Refill [facility] Oncology and Hematology - [place] [address] [place] [address] Kiran Rivera MD Acute diarrhea; Invasive ductal carcinoma of breast, female, right (CMS/HCC) 05/11/2024 Orders Only [facility] Oncology and Hematology - [place] [address] [place] [address] Kiran Rivera MD 05/10/2024 Orders Only [facility] Oncology and Hematology - [place] [address] [place] [address] Kiran Rivera MD Encounter for monitoring cyclophosphamide therapy (Primary Dx); Invasive ductal carcinoma of breast, female, right (CMS/HCC) 05/09/2024 Orders Only [facility] Oncology and Hematology - [address] Kiran Rivera MD Invasive ductal carcinoma of breast, female, right (CMS/HCC) 05/04/2024 External Device Data STL ABSTRACTION Provider, Abstract 05/02/2024 8:45 AM CONSERVATION BIOLOGY PROFESSOR Office Visit [facility] Oncology and Hematology - [place] [address] Kiran Rivera MD Invasive ductal carcinoma of breast, female, right (CMS/HCC) (Primary Dx) 05/02/2024 Orders Only [facility] Oncology and Hematology - [place] [address] [place] [id number] Kiran Rivera MD 04/25/2024 Orders Only [facility] Oncology and Hematology - [address] Kiran Rivera MD Invasive ductal carcinoma of breast, female, right (CMS/HCC) 04/18/2024 Orders Only [facility] Oncology and Hematology - [place] [address] [place] [phone] Kiran Rivera MD Invasive ductal carcinoma of breast, female, right (CMS/HCC) (Primary Dx) 04/11/2024 Orders Only [facility] Oncology and Hematology - [place] [address] [place] [id number] Kiran Rivera MD Invasive ductal carcinoma of breast, female, right (CMS/HCC) 03/30/2024 Orders Only [facility] Oncology and Hematology - [place] [address] [place] [address] Kiran Rivera MD 03/29/2024 Orders Only [facility] Oncology and Hematology - [place] [address] [place] [phone] Kiran Rivera MD 03/28/2024 Orders Only [facility] Oncology and Hematology - [place] [address] [place] [phone] Kiran Rivera MD Invasive ductal carcinoma of breast, female, right (CMS/HCC) 03/24/2024 External Device Data STL ABSTRACTION Provider, Abstract 03/22/2024 Orders Only [facility] Oncology and Hematology - [place] [address] [place] [phone] Kiran Rivera MD 03/14/2024 Orders Only [facility] Oncology and Hematology - [place] [address] Kiran Rivera MD Invasive ductal carcinoma of breast, female, right (CMS/HCC) 03/11/2024 Orders Only [facility] Oncology and Hematology - [place] [address] Kiran Rivera MD 03/08/2024 9:30 AM CONSERVATION BIOLOGY PROFESSOR Office Visit [facility] Oncology and Hematology - [place] [address] Adelso Leal MD Invasive ductal carcinoma of breast, female, right (CMS/HCC) (Primary Dx) 03/03/2024 Orders Only [facility] Oncology and Hematology - [address] [place] [phone] Kiran Rivera MD 02/29/2024 Orders Only [facility] Oncology and Hematology - [place] [address] [place] [address] Kiran Rivera MD Invasive ductal carcinoma of breast, female, right (CMS/HCC) 02/26/2024 Orders Only [facility] Oncology and Hematology - [place] [address] [place] [address] Kiran Rivera MD 02/22/2024 Orders Only [facility] Oncology and Hematology - [place] [address] [place] [address] Kiran Rivera MD from Last 3 Months Family History Medical History Relation Name Comments Colon Cancer Father Breast Cancer Neg Hx Ovarian Cancer Neg Hx Relation Name Status Comments Father Social History Tobacco Use Types Packs/Day Years Used Date Smoking Tobacco: Never Smokeless Tobacco: Never Tobacco Cessation:Counseling Given: Not Answered Alcohol Use Standard Drinks/Week Comments Yes 0 [...] on file Sexual Orientation Not on file Last Filed Vital Signs Vital Sign Reading Time Taken Comments Blood Pressure 137/82 05/02/2024 8:39 AM CONSERVATION BIOLOGY PROFESSOR Pulse 118 05/02/2024 8:39 AM CONSERVATION BIOLOGY PROFESSOR Temperature 36.6 C (97.8 F) 05/02/2024 8:39 AM CONSERVATION BIOLOGY PROFESSOR Respiratory Rate 15 05/02/2024 8:39 AM CONSERVATION BIOLOGY PROFESSOR Oxygen Saturation 94% 05/02/2024 8:39 AM CONSERVATION BIOLOGY PROFESSOR Inhaled Oxygen Concentration - - Weight 79.7 kg (175 lb 12.8 oz) 05/02/2024 8:39 AM CONSERVATION BIOLOGY PROFESSOR Height 162.6 cm (5' 4 ) 03/17/2023 2:08 PM CONSERVATION BIOLOGY PROFESSOR Body Mass Index 30.18 03/17/2023 2:08 PM CONSERVATION BIOLOGY PROFESSOR Plan of Treatment Upcoming Encounters Date Type Department Care Team (Late st Contact Info) Description 05/31/2024 8:30 AM CDT Office Visit [facility] Oncology and Hematology [place] [address] [place] [address] Kiran Rivera MD [address] [address] Health Maintenance Due Date Last Done Comments DTAP/TDAP/TD VACCINES (1 - Tdap) 12/05/1970 PNEUMOCOCCAL VACCINE 50+ YEA RS (1 of 2 - PCV) 12/05/1970 Traditional Medicare (ACO) A nnual Wellness Visit 12/05/1970 ZOSTER VACCINE (1 of 2) 12/05/1970 COLORECTAL SCREENING 12/05/1996 Colorectal Cancer Screening 12/05/1996 FIT-DNA Q 3 years 12/05/1996 FIT/FOBT Q 1 year 12/05/1996 Flex Sig/CT Colonography Q 5 years 12/05/1996 OSTEOPOROSIS SCREENING 12/05/2016 BREAST CANCER SCREENING 01/21/2023 01/22/20, 01/03/2021, 06/14/2020, Additional history exists INFLUENZA VACCINE (#1) 2023 RSV VACCINE (60+ or ) (1 - 1-dose 75+ series) 12/05/2026 Medical Devices Implanted Type Area Finishing Supervisor Device Identifier Shelf Expiration Date Model / Serial / Lot Juke Box Mechanic Clip Surgiclip Ii Talon 9.75in [id number] - [id number] Implanted:Qty: 1 on 03/31/2019 by Alissa Duarte MD at [facility] [place] Clip Right: Breast [employer] - COVIDIEN 07/31/2023 [id number] / / [id number] Hemostatic Surgicel 2x14in 1950 - [id number] Implanted:Qty: 1 on 03/31/2019 by Alissa Duarte MD at [facility] [place] Hemostatic Right: Breast [employer] 04/30/20231950 / / [id number] Hemostatic Surgicel 2x14in 1950 - [id number] Implanted:Qty: 1 on 03/31/2019 by Alissa Duarte MD at [facility] [place] Hemostatic Right: Breast [employer] 04/30/20231950 / / [id number] Procedures Procedure Name Priority Date/Time Associated Diagnosis Comments BASIC METABOLIC PANEL Routine 05/10/2024 9:54 AM CDT BASIC METABOLIC PANEL Routine 05/02/2024 2:38 PM CONSERVATION BIOLOGY PROFESSOR CBC WITH AUTODIFFERENTIAL Routine 05/02/2024 10:30 AM CONSERVATION BIOLOGY PROFESSOR BASIC METABOLIC PANEL Routine 03/29/2024 4:11 PM CONSERVATION BIOLOGY PROFESSOR CBC WITH DIFFERENTIAL Routine 03/29/2024 4:08 PM CONSERVATION BIOLOGY PROFESSOR BASIC METABOLIC PANEL Routine 03/29/2024 4:05 PM CONSERVATION BIOLOGY PROFESSOR CBC WITH DIFFERENTIAL Routine 03/29/2024 4:04 PM CONSERVATION BIOLOGY PROFESSOR CBC WITH DIFFERENTIAL Routine 03/21/2024 10:48 AM CONSERVATION BIOLOGY PROFESSOR CBC WITH DIFFERENTIAL Routine 03/08/2024 1:30 PM CONSERVATION BIOLOGY PROFESSOR BASIC METABOLIC PANEL Routine 03/08/2024 11:17 AM CONSERVATION BIOLOGY PROFESSOR ECHO COMPLETE Routine 02/29/2024 10:56 AM CONSERVATION BIOLOGY PROFESSOR CBC WITH DIFFERENTIAL Routine 02/22/2024 3:15 PM CONSERVATION BIOLOGY PROFESSOR CANCER ANTIGEN 15-3 Routine 02/22/2024 1 2:41 PM CONSERVATION BIOLOGY PROFESSOR BASIC METABOLIC PANEL Routine 02/22/2024 9:27 AM CONSERVATION BIOLOGY PROFESSOR MAMMO 3D RIAN DIAGNOSTIC BILAT W OR WO CAD Routine 01/21/2022 12:54 PM CONSERVATION BIOLOGY PROFESSOR Invasive ductal carcinoma of breast, female, right (CMS/HCC) Malignant neoplasm of axillary tail of right female breast, unspecified estrogen receptor status from Last 3 Months or Most Recently Relevant to Health Maintenance Results * BASIC METABOLIC PANEL (05/10/2024 9:54 AM CDT) Only the most recent of6 resultswithin the time period is included. Blood us Kiran Rivera MD CHEMISTRY ORDERABLES Final Resu lt * CBC WITH AUTODIFFERENTIAL (05/02/2024 10:30 AM CONSERVATION BIOLOGY PROFESSOR) Blood us Kiran Rivera MD HEMATOLOGY ORDERABLES Final Res ult * CBC WITH DIFFERENTIAL (03/29/2024 4:08 PM CONSERVATION BIOLOGY PROFESSOR) Only the most recent of5 resultswithin the time period is included. Blood us Kiran Rivera MD HEMATOLOGY ORDERABLES Final Res ult * ECHO COMPLETE (02/29/2024 10:56 AM CONSERVATION BIOLOGY PROFESSOR) us Kiran Rivera MD ECHO ORDERABLES Final Result * CANCER ANTIGEN 15-3 (02/22/2024 12:41 PM CONSERVATION BIOLOGY PROFESSOR) Blood us Kiran Rivera MD CHEMISTRY ORDERABLES Final Resu lt * MAMMO DIAG BILAT 3D RIAN W OR WO CAD (01/21/2022 12:54 PM CONSERVATION BIOLOGY PROFESSOR) Anatomical Region Laterality Modality Breast Bilateral Mammography 01/21/2022 12:5 4 PM CONSERVATION BIOLOGY PROFESSOR Impressions 01/21/2022 3:32 PM CONSERVATION BIOLOGY PROFESSOR IMPRESSION: No suspicious findings to suggest malignancy in either breast. Annual mammography is recommended. OVERALL FINAL ASSESSMENT: BI-RADS CATEGORY 2 - Benign findings. Narrative 01/21/2022 3:32 PM CONSERVATION BIOLOGY PROFESSOR EXAM: BILATERAL DIAGNOSTIC DIGITAL MAMMOGRAM WITH 3D TOMOSYNTHESIS AND CAD DATE: 01/21/2022 12:54 PM HISTORY: Personal history of breast cancer with prior right breast conservation therapy. DICTATION LOCATION: [facility] TECHNIQUE: Mediolateral oblique, mediolateral and craniocaudal views of both breasts were performed using full-field digital mammography. Low-dose digital breast tomosynthesis examination was performed with 2D and 3D acquisitions. Examination is read in conjunction with computer aided detection. COMPARISON: 01/15/2021 and older. BREAST COMPOSITION: Scattered fibroglandular densities FINDINGS: Mammographic changes consistent with breast conservation therapy are seen on the right. No concerning mass, suspicious microcalcifications, or concerning areas of architectural distortion are identified in either breast. Computer aided detection was utilized. Procedure Note Katy Bernard MD - 01/21/2022 EXAM: BILATERAL DIAGNOSTIC DIGITAL MAMMOGRAM WITH 3D TOMOSYNTHESIS AND CAD DATE: 01/21/2022 12:54 PM HISTORY: Personal history of breast cancer with prior right breast conservation therapy. DICTATION LOCATION: [facility] TECHNIQUE: Mediolateral oblique, mediolateral and craniocaudal views of both breasts were performed using full-field digital mammography. Low-dose digital breast tomosynthesis examination was performed with 2D and 3D acquisitions. Examination is read in conjunction with computer aided detection. COMPARISON: 01/15/2021 and older. BREAST COMPOSITION: Scattered fibroglandular densities FINDINGS: Mammographic changes consistent with breast conservation therapy are seen on the right. No concerning mass, suspicious microcalcifications, or concerning areas of architectural distortion are identified in either breast. Computer aided detection was utilized. IMPRESSION: No suspicious findings to suggest malignancy in either breast. Annual mammography is recommended. OVERALL FINAL ASSESSMENT: BI-RADS CATEGORY 2 - Benign findings. Charlene Birch MD MAMMO ORDERABLES Final R esult from Last 3 Months or Most Recently Relevant to Health Maintenance Insurance MEDICARE PART A AND B [facility] MEDICARE PART A AND B [facility] RX [facility] Medicare Part D RX [employer] (INTERNAL) [facility] Plans Advance Directives For more information, please contact: [phone] * Full Code (Latest Code Status on File) Date Activated Date Inactivated Comments 02/24/2023 10:43 PM 02/28/2023 7:18 PM Care Teams Media Services Specialist Relationship Specialty Start Date End Date Alexey Medrano DO [address] [place] [address] PCP - General Internal Medicine 12/15/23
--- OUTSIDE RECORDS SUMMARY | 2024-05-17 11:13 | XMS_ITS | Clinical Summary ---
Author Organization [facility] Address [address] [place] [address] Care Team Providers Care Minute Clerk For Basic Traffic Name Role Phone Sid Barrios PA-C Primary Care Provide r Source Comments [facility],non-owned Affiliates and Associated Physician Practices is amultiple site organization consisting of ambulatory clinics and hospital sitesin [place], [place], [place] and [place]. This disclosure is being madepursuant to the Care Everywhere program and may not contain all information available regarding this patient. Last updated 17.[facility] Social History Tobacco Use Types Packs/Day Years Used Date Smoking Tobacco: Never Assessed Sex and Gender Information Value Date Recorded Sex Assigned at Not on file Gender Identity Not on file Sexual Orientation Not on file Last Filed Vital Signs Vital Sign Reading Time Taken Comments Blood Pressure - - Pulse - - Temperature - - Respiratory Rate - - Oxygen Saturation - - Inhaled Oxygen Concentration - - Weight 91.2 kg (201 lb) 10/12/2018 7:10 AM CDT Height 162.6 cm (5' 4 ) 10/12/2018 7:10 AM CDT Body Mass Index 34.5 10/12/2018 7:10 AM CDT Plan of Treatment Health Maintenance Due Date Last Done Comments BONE DENSITY TESTING 1950 COLOGUARD (AGES 45-75) - COL ON CA SCREENING 1950 COLON MONITORING 1950 COLONOSCOPY - COLON CA SCREENING 1950 CT COLONOGRAPHY - COLON CA SCREENING 1950 Colorectal Cancer Screening 1950 FIT - COLON CA SCREENING 1950 FLEX SIG - COLON CA SCREENING 1950 LIPID TESTING 1950 MAMMOGRAM 1950 MEDICARE AWV 12 MONTHS 1950 HEPATITIS C SCREENING 12/01/1969 DTAP/TDAP/TD VACCINES (1 - Tdap) 12/05/1970 PNEUMOCOCCAL VACCINE 50+ (1 of 1 - PCV) 12/05/2001 ZOSTER VACCINE (1 of 2) 12/05/2001 COVID-19 VACCINE ( - 2023-2 5 season) 2023 INFLUENZA VACCINE (#1) 2023 DEPRESSION SCREENING 03/02/2024 Respiratory Syncytial Virus (RSV) Vaccine Pt: or over 60 yrs (1 - 1-dose 75+ series) 12/05/2026 HEPATITIS B VACCINE Aged Out No longe r eligible based on patient's age to complete this topic HIB VACCINE Aged Out No longer eligi ble based on patient's age to complete this topic HPV VACCINE Aged Out No longer eligi ble based on patient's age to complete this topic MENINGOCOCCAL (Group B) VACC INE SHARED DECISION-MAKING Aged Out No longer eligibl e based on patient's age to complete this topic MENINGOCOCCAL GROUPS A/C/Y/W VACCINE Aged Out No longer eligible b ased on patient's age to complete this topic Care Teams Minute Clerk For Basic Traffic Relationship Specialty Start Date End Date Sid Barrios PA-C [address] [place] [address] PCP - General Physician Payroll Master 02/27/23
== END 2024-05-17 10:01 | disposition home or self-care (01) ==
PROVIDERS: PCP Internal Medicine; Visit Provider Internal Medicine Hematology & Oncology
DX: C50.911 Malignant neoplasm of unspecified site of right female breast (principal); C79.51 Secondary malignant neoplasm of bone
CPT/HCPCS: 71250; 74176; 78306; A9503

== ENCOUNTER 2024-05-24 14:03 | Outpatient (CLI) | payer MEDICARE, OTHER, SELFPAY ==
--- NOTE | 2024-05-24 | ECHO_ITS ---
Patient Info Name: Syeda Marks Age: 73 years : 1950 Gender: Female Ht: 64 in Wt: 170 lbs BSA: 1.89 m2 HR: 122 bpm BP: 116 / 72 mmHg Technical Quality: Fair Exam Date: 05/24/2024 3:02 PM Exam Location: Echo Lab Patient Status: Outpatient Admit Date: 05/24/2024 Staff Ordering Physician: Kiran Rivera MD Top Distribution Executive: Selma Collins RDCS Attending Provider: Kiran Rivera MD Referring Physician: Miguel HOWELL; Exam Type: CA echo doppler color flow Study Info Indications C50.911 - Malignant neoplasm of unspecified site of right female breast Strain analysis performed. Complete two-dimensional, color flow and Doppler transthoracic echocardiogram is performed. Summary 1. Complete two-dimensional, color flow and Doppler transthoracic echocardiogram is performed. 2. Left ventricular chamber dimension is normal. 3. Left ventricular systolic function is normal, estimated at 65-70%. 4. The left ventricular diastolic function is grade I diastolic dysfunction. 5. E/e' 7 is not elevated. 6. Global longitudinal strain is normal at -20.5%. 7. There is trace tricuspid valve regurgitation. 8. No pulmonary hypertension, estimated pulmonary arterial systolic pressure is 27 mmHg. Left Ventricle E/e' 7 is not elevated. Global longitudinal strain is normal at -20.5%. Left ventricular chamber dimension is normal. Left ventricular systolic function is normal, estimated at 65-70%. The left ventricular diastolic function is grade I diastolic dysfunction. Right Ventricle Right ventricular chamber dimension is normal. Right ventricular systolic function is normal. Left Atria Left atrial chamber dimension is normal. Right Atria Right atrial chamber dimension is normal. Aortic Valve The aortic valve is trileaflet. There is no aortic valve stenosis. There is no aortic valve regurgitation. Pulmonic Valve There is no pulmonic regurgitation. Mitral Valve There is no mitral valve stenosis. There is no mitral valve regurgitation. Tricuspid Valve There is trace tricuspid valve regurgitation. No pulmonary hypertension, estimated pulmonary arterial systolic pressure is 27 mmHg. Pericardium/Pleural There is no pericardial effusion. Inferior Vena Cava Normal inferior vena cava with >50% collapse upon inspiration consistent with normal right atrial pressure, 5 mmHg. Aorta The aortic root size at the sinus of Valsalva is normal. Left Ventricular Outflow Tract Name Value Normal LVOT 2D LVOT Diameter 2.0 cm LVOT Doppler LVOT Peak Gradient 4 mmHg LVOT Mean Gradient 2 mmHg LVOT VTI 14 cm LVOT VTI/AV VTI Ratio 0.7 LVOT Stroke Volume 44 ml LVOT CO 4.4 l/min LVOT CI 2.3 l/min/m2 Mitral Valve Name Value Normal MV Doppler MV Decel [place] 755 cm/s2 MV PHT 27 ms MV Area (PHT) 8.1 cm2 4.0-5.0 MV Diastolic Function MV E Peak Velocity 71 cm/s MV A Peak Velocity 93 cm/s MV E/A 0.8 MV Decel Time 94 ms MV Annular TDI MV E/e' (Septal) 9.5 <=8.0 MV E/e' (Lateral) 6.4 <=8.0 MV E/e' (Average) 7.9 Tricuspid Valve Name Value Normal TV Regurgitation Doppler TR Peak Velocity 233 cm/s TR Peak Gradient 22 mmHg Estimated PAP/RSVP RA Pressure 5 mmHg <=5 PA Systolic Pressure 27 mmHg <36 RV Systolic Pressure 27 mmHg <36 Aortic Valve Name Value Normal AV Doppler AV Peak Velocity 130 cm/s AV Peak Gradient 7 mmHg AV Mean Gradient 4 mmHg AV VTI 21 cm AV Area (Cont Eq VTI) 2.1 cm2 >=3.0 AV Area (Cont Eq Carlos) 2.4 cm2 AV Regurgitation 2D LVOT Area 3.1 cm2 Ventricles Name Value Normal LV Dimensions 2D/MM IVS Diastolic Thickness (2D) 1.0 cm 0.6-1.0 LVID Diastole (2D) 5.0 cm 3.8-5.2 LVIW Diastolic Thickness (2D) 0.9 cm 0.6-0.9 LVID Systole (2D) 2.9 cm 2.2-3.5 LVOT Diameter 2.0 cm LV Mass (2D Cubed) 161.24 g 67.00-162.00 LV Mass Index (2D Cubed) 85 g/m2 43-95 Relative Wall Thickness (2D) 0.34 LV Fractional Shortening/Ejection Fraction 2D/MM LV Fractional Shortening (2D) 42 % 27-45 LV EF (2D Teicholz) 73 % 54-74 LV Diastolic Volume (4C MOD) 61 ml LV EF (4C MOD) 61 % LV Diastolic Volume (2C MOD) 52 ml LV EF (2C MOD) 63 % LV Diastolic Volume (BP MOD) 56 ml 46-106 LV Diastolic Volume Index (BP MOD) 30 ml/m2 29-61 LV Systolic Volume (BP MOD) 22 ml 14-42 LV Systolic Volume Index (BP MOD) 12 ml/m2 8-24 LV EF (BP MOD) 61 % 54-74 LV Diastolic Length (4C) 7.3 cm LV Systolic Length (4C) 6.3 cm LV Stroke Volume (4C MOD) 37 ml Atria Name Value Normal LA Dimensions LA Volume (4C A-L) 37 ml LA Volume (BP A-L) 43 ml RA Dimensions RA Area (4C) 10.5 cm2 <=18.0 EchoPAC Name Value Normal JUDITH AA peak sys SL (AWMA) 25.7 % AAS peak sys SL (AWMA) 26.1 % AI peak sys SL (AWMA) 27.3 % AL peak sys SL (AWMA) 27.4 % AP peak sys SL (AWMA) 31.1 % peak sys SL (AWMA) 27.0 % AVC (AWMA) 355 ms BA peak sys SL (AWMA) 13.9 % BAS peak sys SL (AWMA) 9.7 % BI peak sys SL (AWMA) 19.8 % BL peak sys SL (AWMA) 17.9 % BP peak sys SL (AWMA) 16.7 % BS peak sys SL (AWMA) 13.3 % G peak SL(A2C) (AWMA) 20.6 % G peak SL(A4C) (AWMA) 20.6 % G peak SL(APLAX) (AWMA) 20.3 % G peak SL(Avg) (AWMA) 20.5 % MA peak sys SL (AWMA) 17.8 % MAS peak sys SL (AWMA) 13.9 % AK peak sys SL (AWMA) 21.0 % ML peak sys SL (AWMA) 20.7 % MP peak sys SL (AWMA) 25.3 % MS peak sys SL (AWMA) 17.0 % Report Signatures
--- OUTSIDE RECORDS SUMMARY | 2024-05-24 16:31 | XMS_ITS | Continuity of Care Document ---
Author Organization [facility] Address [address] [facility] [address] [place] [address] Phone Care Team Providers Care Welt Trimming Machine Operator Name Role Phone Connie Moctezuma Unavailable Unavailable Advance Directives Directive Yes / No Effective Date File Name No Information Encounters Encounter Description Practice Location Reason(s) For Visit Diagnoses Date Provider Providers Copied on Encounter [facility], [address], [place], [place], [id number], [place] tel:[phone] [facility] No Information [phone] 0 Rhianna Rosales. [address] , [address], [place], [address], [place]. tel:[phone] Family History Family Member Type Diagnosis Age [...]
--- OUTSIDE RECORDS SUMMARY | 2024-05-24 16:31 | XMS_ITS | Clinical Summary ---
Author Organization [facility] Address [address] [place] [address] Care Team Providers Care Desktop Publisher Name Role Phone Alexey Medrano Primary Care Provider [phone] Allergies Active Allergy Reactions Criticality Noted Date Comments Amoxicillin-Pot Clavulanate Nausea and Vomiting Low 03/03/2023 Medications lisinopril (PRINIVIL) 20 mg tablet 09/21/19 19 Active iron-vitamin C-vitamin A52-zgqik acid-succinic acid (MULTIGEN PLUS) 370-05-93-1-50 yu-pw-quu-mg-mg Tablet tablet Take by mouth. A ctive multivitamin (DAILY-MIREYA) tablet Take 1 Tablet by mouth daily. Active ascorbic acid (VITAMIN C ORAL) Take by mouth. Activ e COVID-19 VACC,MRNA,MODER NA,-PF IM Inject by intramuscular injection. Lot [id number] Through [facility] Second shot in one month 04/02/19 [...] as needed. 60 Tablet 3 4:36 PM DISPENSING OPTICIAN APPRENTICE 02/29/20 23 Active ibuprofen (MOTRIN) 600 mg tablet Take 1 Tablet (600 mg) by mouth every 6 hours as needed for mild pain. 60 Tablet 3 4:36 PM DISPENSING OPTICIAN APPRENTICE 02/29/20 23 Active Saccharomyces boulardii (FLORASTOR) 250 mg Capsule Take 1 Capsule (250 mg) by mouth 2 times daily. 60 Capsule 3 4:36 PM DISPENSING OPTICIAN APPRENTICE 02/29/20 23 Active cefUROXime axetil (CEFTIN) 500 mg tablet Take 1 Tablet (500 mg) by mouth 2 times daily. 18 Tablet 3 4:36 PM DISPENSING OPTICIAN APPRENTICE 02/29/20 23 Active chlorhexidine gluconate (Peridex) 0.12 [...] STOOLS 90 Tablet 1 05/17/19 25 Active megestroL (MEGACE) 400 mg/10 mL (40 mg/mL) suspension Take 10 mL (400 mg) by mouth daily. 240 mL 1 05/25/19 25 Active diphenoxylate-a tropine 2.5 mg-0.025 mg [...] PA-C Referring Provider: Sid Barrios PA-C [address] [facility] [address] [place] [address] Other: Problem Noted Date Diagnosed Date Osteonecrosis of mandible 02/27/2023 Facial abscess 02/24/2023 Osteomyelitis 02/24/2023 Malignant neoplasm of axillary tail of right fem josé miguel breast 01/21/2022 Cancer, metastatic to bone 01/21/2022 Invasive ductal carcinoma of breast, female, rig ht 10/18/2018 Lump of right breast 09/21/2018 Abnormality of left breast on screening mammogra m 09/21/2018 Encounters Date Type Department Care Team Description 05/24/2024 Telephone [facility] Oncology and Hematology - [place] [address] [place] [address] Kiran Rivera MD Megace 05/23/2024 Orders Only [facility] Oncology and Hematology - [place] [address] [place] [address] Kiran Rivera MD Invasive ductal carcinoma of breast, female, right (CMS/HCC) 05/18/2024 Orders Only [facility] Oncology and Hematology - [place] [address] [place] [id number] Kiran Rivera MD 05/17/2024 Orders Only [facility] Oncology and Hematology - [place] [address] [place] [id number] Kiran Rivera MD 05/16/2024 Refill [facility] Oncology and Hematology - [place] [address] [place] [id number] Kiran Rivera MD Acute diarrhea; Invasive ductal carcinoma of breast, female, right (CMS/HCC) 05/11/2024 Orders Only [facility] Oncology and Hematology - [place] [address] Kiran Rivera MD 05/10/2024 Orders Only [facility] Oncology and Hematology - [place] [address] [place] [address] Kiran Rivera MD Encounter for monitoring cyclophosphamide therapy (Primary Dx); Invasive ductal carcinoma of breast, female, right (CMS/HCC) 05/09/2024 Orders Only [facility] Oncology and Hematology - [place] [address] [place] [address] Kiran Rivera MD Invasive ductal carcinoma of breast, female, right (CMS/HCC) 05/04/2024 External Device Data STL ABSTRACTION Provider, Abstract 05/02/2024 8:45 AM DISPENSING OPTICIAN APPRENTICE Office Visit [facility] Oncology and Hematology - [place] [address] [place] [address] Kiran Rivera MD Invasive ductal carcinoma of breast, female, right (CMS/HCC) (Primary Dx) 05/02/2024 Orders Only [facility] Oncology and Hematology - [place] [address] [place] [address] Kiran Rivera MD 04/25/2024 Orders Only [facility] Oncology and Hematology - [place] [address] [place] [address] Kiran Rivera MD Invasive ductal carcinoma of breast, female, right (CMS/HCC) 04/18/2024 [facility] On[facility] and Hematology - [place] [address] Kiran Rivera MD Invasive ductal carcinoma of breast, female, right (CMS/HCC) (Primary Dx) 04/11/2024 Orders Only [facility] Oncology and Hematology - [place] [address] [place] [id number] Kiran Rivera MD Invasive ductal carcinoma of breast, female, right (CMS/HCC) 03/30/2024 Orders Only [facility] Oncology and Hematology - [place] [address] [place] [phone] Kiarn Rivera MD 03/29/2024 Orders Only [facility] Oncology and Hematology - [place] [address] [place] [id number] Kiran Rivera MD 03/28/2024 Orders Only [facility] Oncology and Hematology - [place] [address] [place] [address] Kiran Rivera MD Invasive ductal carcinoma of breast, female, right (CMS/HCC) 03/24/2024 External Device Data STL ABSTRACTION Provider, Abstract 03/22/2024 Orders Only [facility] Oncology and Hematology - [place] [address] [place] [address] Kiran Rivera MD 03/14/2024 Orders Only [facility] Oncology and Hematology - [place] [address] [place] [address] Kiran Rivera MD Invasive ductal carcinoma of breast, female, right (CMS/HCC) 03/11/2024 Orders Only [facility] Oncology and Hematology - [place] [address] [place] [address] Kiran Rivera MD 03/08/2024 9:30 AM DISPENSING OPTICIAN APPRENTICE Office Visit [facility] Oncology and Hematology - [place] [address] [place] [address] Adelso Leal MD Invasive ductal carcinoma of breast, female, right (CMS/HCC) (Primary Dx) 03/03/2024 Orders Only [facility] Oncology and Hematology - [place] [address] Kiran Rivera MD 02/29/2024 Orders Only [facility] Oncology and Hematology - [place] [address] Kiran Rivera MD Invasive ductal carcinoma of breast, female, right (CMS/HCC) 02/26/2024 Orders Only [facility] Oncology and Hematology - [place] [address] [place] [phone] Kiran Rivera MD from Last 3 Months [...] Comments Blood Pressure 137/82 05/02/2024 8:39 AM DISPENSING OPTICIAN APPRENTICE Pulse 118 05/02/2024 8:39 AM DISPENSING OPTICIAN APPRENTICE Temperature 36.6 C (97.8 F) 05/02/2024 8:39 AM DISPENSING OPTICIAN APPRENTICE Respiratory Rate 15 05/02/2024 8:39 AM DISPENSING OPTICIAN APPRENTICE Oxygen Saturation 94% 05/02/2024 8:39 AM DISPENSING OPTICIAN APPRENTICE Inhaled Oxygen Concentration - - Weight 79.7 kg (175 lb 12.8 oz) 05/02/2024 8:39 AM DISPENSING OPTICIAN APPRENTICE Height 162.6 cm (5' 4 ) 03/17/2023 2:08 PM DISPENSING OPTICIAN APPRENTICE Body Mass Index 30.18 03/17/2023 2:08 PM DISPENSING OPTICIAN APPRENTICE Plan of Treatment Upcoming Encounters Date Type Department Care Team (Late st Contact Info) Description 05/31/2024 8:30 AM CDT Office Visit [facility] Oncology and Hematology - [place] [address] [facility] [address] [place] [address] Kiran Rivera MD [address] [facility] [address] [place] [address] Health Maintenance Due Date Last Done [...] OSTEOPOROSIS SCREENING 12/05/2016 BREAST CANCER SCREENING 01/21/2023 01/22/20 22, 01/03/2021, 06/14/2020, Additional history exists INFLUENZA VACCINE (#1) 2023 RSV VACCINE (60+ or ) (1 - 1-dose 75+ series) 12/05/2026 Medical Devices Implanted Type Area Greenhouse Transplanter Device Identifier Shelf Expiration Date Model / Serial / Lot Ux Specialist Clip Surgiclip Ii Talon 9.75in [id number] - [id number] Implanted:Qty: 1 on 03/31/2019 by Alissa Duarte MD at [facility] Clip Right: Breast [employer] - COVIDIEN 07/31/2023 [id number] / / [id number] Hemostatic Surgicel 2x14in 1949 - [id number] Implanted:Qty: 1 on 03/31/2019 by Alissa Duarte MD at [facility] Hemostatic Right: Breast [employer]- [employer] 04/30/20231950 / / [id number] Hemostatic Surgicel 2x14in 1949 - [id number] Implanted:Qty: 1 on 03/31/2019 by Alissa Duarte MD at [facility] Hemostatic Right: Breast [employer] 04/30/20231950 / / [id number] Procedures Procedure Name Priority Date/Time Associated Diagnosis Comments CT CHEST ABDOMEN PELVIS W CONT Routine 05/17/2024 2:40 PM CDT CBC MIXED CELL DIFFERENTIAL Routine 05/16/2024 11:43 AM CDT BASIC METABOLIC PANEL Routine 05/10/2024 9:54 AM CDT BASIC METABOLIC PANEL Routine 05/02/2024 2:38 PM DISPENSING OPTICIAN APPRENTICE CBC WITH AUTODIFFERENTIAL Routine 05/02/2024 10:30 AM DISPENSING OPTICIAN APPRENTICE BASIC METABOLIC PANEL Routine 03/29/2024 4:11 PM DISPENSING OPTICIAN APPRENTICE CBC WITH DIFFERENTIAL Routine 03/29/2024 4:08 PM DISPENSING OPTICIAN APPRENTICE BASIC METABOLIC PANEL Routine 03/29/2024 4:05 PM DISPENSING OPTICIAN APPRENTICE CBC WITH DIFFERENTIAL Routine 03/29/2024 4:04 PM DISPENSING OPTICIAN APPRENTICE CBC WITH DIFFERENTIAL Routine 03/21/2024 10:48 AM DISPENSING OPTICIAN APPRENTICE CBC WITH DIFFERENTIAL Routine 03/08/2024 1:30 PM DISPENSING OPTICIAN APPRENTICE BASIC METABOLIC PANEL Routine 03/08/2024 11:17 AM DISPENSING OPTICIAN APPRENTICE ECHO COMPLETE Routine 02/29/2024 10:56 AM DISPENSING OPTICIAN APPRENTICE MAMMO 3D RIAN DIAGNOSTIC BILAT W OR WO CAD Routine 01/21/2022 12:54 PM DISPENSING OPTICIAN APPRENTICE Invasive ductal carcinoma of breast, female, right (CMS/HCC) Malignant neoplasm of axillary tail of right female breast, unspecified estrogen receptor status from Last 3 Months or Most Recently Relevant to Health Maintenance Results * CT CHEST ABDOMEN PELVIS W CONT (05/17/2024 2:40 PM CDT) Anatomical Region Laterality Modality Chest Computed Tomogra phy us Kiran Rivera MD CT ORDERABLES Final Result * CBC MIXED CELL DIFFERENTIAL (05/16/2024 11:43 AM CDT) Blood Result Erika Rivera MD HEMATOLOGY ORDERABLES Final Res ult * BASIC METABOLIC PANEL (05/10/2024 9:54 AM CDT) Only the most recent of5 resultswithin the time period is included. Blood Result Erika Rivera MD CHEMISTRY ORDERABLES Final Resu lt * CBC WITH AUTODIFFERENTIAL (05/02/2024 10:30 AM DISPENSING OPTICIAN APPRENTICE) Blood Result [facility] us Kiran Rivera MD HEMATOLOGY ORDERABLES Final Res ult * CBC WITH DIFFERENTIAL (03/29/2024 4:08 PM DISPENSING OPTICIAN APPRENTICE) Only the most recent of4 resultswithin the time period is included. Blood Result Erika Rivera MD HEMATOLOGY ORDERABLES Final Res ult * ECHO COMPLETE (02/29/2024 10:56 AM DISPENSING OPTICIAN APPRENTICE) Result [facility] us Kiran Rivera MD ECHO ORDERABLES Final Result * MAMMO DIAG BILAT 3D RIAN W OR WO CAD (01/21/2022 12:54 PM DISPENSING OPTICIAN APPRENTICE) Anatomical Region Laterality Modality Breast Bilateral Mammography 01/21/2022 12:5 4 PM DISPENSING OPTICIAN APPRENTICE Impressions 01/21/2022 3:32 PM DISPENSING OPTICIAN APPRENTICE IMPRESSION: No suspicious findings to suggest malignancy in either breast. Annual mammography is recommended. OVERALL FINAL ASSESSMENT: BI-RADS CATEGORY 2 - Benign findings. Narrative 01/21/2022 3:32 PM DISPENSING OPTICIAN APPRENTICE EXAM: BILATERAL DIAGNOSTIC DIGITAL MAMMOGRAM WITH 3D [...] Maintenance Insurance MEDICARE PART A AND B [facility] MEDICARE PART A AND B [facility] RX [facility] Medicare Part D RX [employer] (INTERNAL) [facility] Advance Directives For more information, please contact: [phone] * Full Code (Latest Code Status on File) Date Activated Date Inactivated Comments 02/24/2023 10:43 PM 02/28/2023 7:18 PM Care Teams Desktop Publisher Relationship Specialty Start Date End Date Alexey Medrano DO [address] [facility] [address] [facility] [address] [place] [address] PCP - General Internal Medicine 12/15/23
--- OUTSIDE RECORDS SUMMARY | 2024-05-24 16:31 | XMS_ITS | Encounter Summary ---
Author Organization [facility] [employer] [facility] Address [address] [place] [address] Care Team Providers Care Welding Operator Name Role Phone Alexey Medrano DO Primary Care Provider [phone] Encounter Details Date Type Department Care Team (Late Contact Info) Description 05/18/[address] [facility] Oncology and Hematology - [place] [address] [place] [address] [place] [address] [place] [address] [address] [place] [address] Social History Tobacco Use Types [...] Description 05/31/2024 8:30 AM CDT Office Visit [facility] Oncology and Hematology - [place] [address] [place] [address] Kiran Rivera MD [address] [facility] [address] [place] [address] documented as of this encounter Procedures Procedure Name Priority Date/Time Associated Diagnosis Comments CBC MIXED CELL DIFFERENTIAL Routine 05/16/2024 11:43 AM CDT documented in this encounter Results * CBC MIXED CELL DIFFERENTIAL (05/16/2024 11:43 AM CDT) Blood us Kiran Rivera MD HEMATOLOGY ORDERABLES Final Res ult documented in this encounter Visit Diagnoses Not on filedocumented in this encounter Care Teams Welding Operator Relationship Specialty Start Date End Date Alexey Medrano DO [address] [facility] [address] [place] [address] PCP - General Internal Medicine 12/15/23 documented as of this encounter
--- OUTSIDE RECORDS SUMMARY | 2024-05-24 16:31 | XMS_ITS | Encounter Summary ---
Author Organization [facility] [employer] [facility] Address [address] [place] [address] Care Team Providers Care Hydraulic Boom Operator Name Role Phone Alexey Medrano DO Primary Care Provider [phone] Encounter Details Date Type Department Care Team (Late Contact Info) Description 05/23/2024 Orders Only [facility] Oncology and Hematology - [place] [address] [facility] [address] [place] [address] Kiran Rivera MD [address] [facility] [address] [place] [address] Invasive ductal carcinoma of breast, female, right [...] Description 05/31/2024 8:30 AM CDT Office Visit [facility] Oncology and Hematology [facility] [address] [facility] [address] [place] [address] Kiran Rivera MD [address] [facility] [address] [place] [address] documented as of this encounter Visit Diagnoses Diagnosis Invasive ductal carcinoma of breast, female, right (CMS/HCC) documented in this encounter Care Teams Hydraulic Boom Operator Relationship Specialty Start Date End Date Alexey Medrano DO [address] [facility] [address] [place] [address] PCP - General Internal Medicine 12/15/23 documented as of this encounter
--- OUTSIDE RECORDS SUMMARY | 2024-05-24 16:31 | XMS_ITS | Encounter Summary ---
Author Organization [facility] [employer] [facility] Address [address] [place] [address] Care Team Providers Care Signal Worker Helper Name Role Phone Alexey Medrano DO Primary Care Provider [phone] Reason for Visit * Reason Onset Date Comments Megace 05/24/2024 Encounter Details Date Type Department Care Team (Late st Contact Info) Description 05/24/2024 Telephone [facility] Oncology and Hematology - [place] [address] [facility] [address] [place] [address] Kiran Rivera MD [address] [facility] [address] [place] [address] [place] Social History Tobacco Use Types Packs/Day Years [...] on file documented as of this encounter Miscellaneous Notes * Telephone Encounter - Carmina Mcclelland - 05/24/2024 3:27 PM CDT LVM for patient with recommendations. * Telephone Encounter - Carmina Mcclelland - 05/24/2024 3:26 PM CDT ----- Message from Dr. Kiran Rivera sent at 05/24/2024 3:11 PM CDT ----- Regarding: RE: Megace ordered ----- Message ----- From: Carmina Mcclelland Sent: 05/24/2024 1:48 PM CDT To: Kiran Rivera MD Subject: Megace Patient called and stated that she does not have much of an appetite and is wanting to know if you could prescribe megace for her to take for a little while? Please advise. documented in this encounter Plan of Treatment Upcoming Encounters Date Type Department Care Team (Late st Contact Info) Description 05/31/2024 8:30 AM CDT Office Visit [facility] Oncology and Hematology - [place] [address] [place] [address] [address] [place] [address] Kiran Rivera MD [address] [facility] [address] [place] [address] documented as of this encounter Visit Diagnoses Not on filedocumented in this encounter Care Teams Signal Worker Helper Relationship Specialty Start Date End Date Alexey Medrano DO [address] [place] [address] PCP - General Internal Medicine 12/15/23 documented as of this encounter
--- OUTSIDE RECORDS SUMMARY | 2024-05-24 16:31 | XMS_ITS | Encounter Summary ---
Author Organization [facility] Address [address] [place] [address] Care Team Providers Care Employee Benefits Insurance Agent Name Role Phone Alexey Medrano DO Primary Care Provider [phone] Encounter Details Date Type Department Care Team (Late Contact Info) Description 03/23/2019 Chart Note [facility] Radiation Therapy [address] [place] [address] [place] [address] [place] [address] Social History Tobacco Use Types [...] 05/31/2024 8:30 AM CDT Office Visit [facility] Oncology and Hematology - Walter [address] [facility] [address] [place] [address] Kiran Rivera MD [address] [facility] [address] [place] [address] documented as of this encounter Visit Diagnoses Not on filedocumented in this encounter Care Teams Employee Benefits Insurance Agent Relationship Specialty Start Date End Date Alexey Medrano DO [address] [facility] [address] [place] [address] PCP - General Internal Medicine 12/15/23 documented as of this encounter
--- OUTSIDE RECORDS SUMMARY | 2024-05-24 16:31 | XMS_ITS | Clinical Summary ---
Author Organization [facility] Address [address] [facility] [place] [address] Care Team Providers Care Paint Prep Technician Name Role Phone Sid Barrios PA-C Primary Care Provide r Source Comments [facility] [employer],non-owned Affiliates and Associated Physician Practices is amultiple site organization consisting of ambulatory clinics and hospital sitesin [place], [place], [place] and [place]. This disclosure is being madepursuant to the Care Everywhere program and may not contain all information available regarding this patient. Last updated 17.[facility] [employer] Social History Tobacco Use Types Packs/Day Years [...] age to complete this topic Care Teams Paint Prep Technician Relationship Specialty Start Date End Date Sid Barrios PA-C [address] [place] [address] PCP - General Physician Tire Inspector 02/27/23
== END 2024-05-24 14:04 | disposition home or self-care (01) ==
LOC: ANHCARD 14:06
PROVIDERS: PCP Internal Medicine; Visit Provider Internal Medicine Hematology & Oncology
DX: Z51.81 Encounter for therapeutic drug level monitoring (principal); C50.911 Malignant neoplasm of unspecified site of right female breast; Z79.630 Long term (current) use of alkylating agent
CPT/HCPCS: 93306

== ENCOUNTER 2024-06-18 09:36 | Inpatient (IN) | payer MEDICARE, OTHER, SELFPAY ==
[2024-06-18] VITALS (15 sets, daily range): BP systolic 107–140; BP diastolic 54–87; PULSE 108–134; RESP 16–26; TEMP 36.4–36.7; O2SAT 93–100; BMI 29.2
--- NOTE | ~2024-06-18 | US_ITS ---
EXAMINATION: US venous doppler [facility] DATE: 06/22/2024 08:18 INDICATION: Venous thrombosis TECHNIQUE: Grayscale ultrasound images without and with compression and Doppler ultrasound images of the bilateral lower extremity veins were obtained. COMPARISON: None. FINDINGS: The visualized portions of right common femoral vein, profunda (deep) femoral vein, femoral vein, pop liteal vein, posterior tibial veins, peroneal veins, gastrocnemius vein and greater saphenous vein ou tflow are patent. The visualized portions of left common femoral vein, profunda femoral vein, femoral vein, popliteal v ein, posterior tibial veins, peroneal veins, gastrocnemius vein and greater saphenous vein outflow ar e patent. IMPRESSION: 1. No deep venous thrombosis in either lower limb. Reviewed, dictated and finalized at location A.
--- NOTE | ~2024-06-18 | XR_ITS ---
CHEST RADIOGRAPH CLINICAL HISTORY: Pneumonia/ shortness of breath . COMPARISON: Reference is made to a CT examination of the chest, performed 3 days earlier TECHNIQUE: Single portable view of the chest. FINDINGS Left internal jugular central venous port catheter identified with its tip projecting over the superi or vena cava. The remainder of the cardiomediastinal silhouette is otherwise unremarkable. Redemonstration of significant interstitial thickening and patchy groundglass opacification with a bi lateral upper lobe distribution, demonstrating progression from recent CT examination. IMPRESSION: Significant interstitial thickening with progression of patchy groundglass opacification with a bilat eral upper lobe distribution. Reviewed, dictated and finalized at location A. IMPRESSION: Significant interstitial thickening with progression of patchy groundglass opac ification with a bilateral upper lobe distribution.
--- NOTE | ~2024-06-18 | CT_ITS ---
EXAMINATION: CT diagnostic chest wo con DATE: 06/18/2024 10:54 INDICATION: tachycardia TECHNIQUE: Computed tomography (CT) of the chest was performed without intravenous contrast. Addition al 3D reconstructions utilizing coronal maximum intensity projection (MIP) were performed. Automated exposure control and iterative reconstruction technique were employed. The dose-length product was 30 0.22 mGy-cm. COMPARISON: 05/17/2024 FINDINGS: Respiratory motion in the lungs. Similar pattern of peripheral predominant reticular and patchy airsp tariq opacities in both lungs. There appears be some subtle progression with increasing groundglass opa city associated with a few the nodule at the apical left upper lobe and new small peripheral patchy a irspace opacity in the right upper lobe along the minor fissure. No pulmonary edema, pleural effusion or pneumothorax. Heart size is normal. No pericardial effusion. Thoracic aorta is normal in caliber. Left internal jugular central venous port catheter with distal tip at the caudal superior vena cava. No pathologically enlarged thoracic lymphadenopathy. Surgical clips at the right axilla likely relat ed to prior lymph node dissection. Thoracic cholecystectomy clips the gallbladder fossa. Moderate tho racic spondylosis. There is patchy sclerosis of the bones consistent with osseous metastatic disease. Unchanged compression fractures at T9, T12-L1. IMPRESSION: 1. Mild interval progression in peripheral predominant reticular and patchy airspace opacities in bot h lungs which most likely infectious/inflammatory in etiology although differential would include les s likely metastatic disease. 2. Diffuse patchy sclerosis of the bones consistent with metastatic disease with no change in chronic T9, T12 and L1 compression fractures. Reviewed, dictated and finalized at location A. IMPRESSION: 1. Mild interval progression in peripheral predominant reticular and patchy air space opacities in both lungs which most likely infectious/inflammatory in etio logy although differential would include less likely metastatic disease. 2. Diffuse patchy sclerosis of the bones consistent with metastatic disease wit h no change in chronic T9, T12 and L1 compression fractures.
--- NOTE | ~2024-06-18 | CT_ITS ---
Clinical Indication: Pulmonary embolus CT Scan of the Chest with Contrast: Technique: Contiguous sections were acquired throughout the chest after intravenous administration of 100 cc of Omnipaque 350. Dose reduction technique was used on this scan by utilizing automated expos ure control and iterative reconstruction technique. The dose-length product (DLP) was 361.96 mGy-cm. COMPARISON: 06/18/2024 Findings: There is no evidence of any significant mediastinal, hilar or axillary lymphadenopathy. There is no f illing defect in the pulmonary arterial tree to suggest pulmonary embolus. There is no evidence of ao rtic dissection or aneurysm. Small bilateral pleural effusions are present. No pericardial effusion. There is extensive patchy consolidation throughout the lungs, worse overall from prior exam, worst in the right upper lobe. Images through the upper abdomen reveal no abnormalities. There is extensive sclerotic osseous metast atic disease. There are mild compression deformities of T12 and L1. Impression: No evidence of pulmonary embolus, aortic dissection, or aortic aneurysm. Worsening patchy consolidation throughout the lungs, as above. Findings suggest worsening pulmonary e belen versus pneumonia. Correlate clinically. Extensive osseous metastatic disease. Stable mild compression deformities. Small bilateral pleural effusions, new from prior exam. Reviewed, dictated and finalized at location . Impression: No evidence of pulmonary embolus, aortic dissection, or aortic aneurysm. Worsening patchy consolidation throughout the lungs, as above. Findings suggest worsening pulmonary edema versus pneumonia. Correlate clinically. Extensive osseous metastatic disease. Stable mild compression deformities. Small bilateral pleural effusions, new from prior exam.
--- OUTSIDE RECORDS SUMMARY | 2024-06-18 09:39 | XMS_ITS | Continuity of Care Document ---
Author Organization [facility] Address [address] [facility] [address] [place] [address] Phone Care Team Providers Care Sales Representative Printing Supplies Name Role Phone Connie Moctezuma Unavailable Unavailable Advance Directives Directive Yes / No Effective Date File Name No Information Encounters Encounter Description Practice Location Reason(s) For Visit Diagnoses Date Provider Providers Copied on Encounter [facility], [id number] [place] [address] [address], [place], [place], [id number], [place] tel:[phone] [facility] No Information [phone] Rhianna Rosales. [address] , [address], [place], [address], [place]. tel:[phone] Family History Family Member Type Diagnosis Age At Onset No Information Payers Payer name Insurance type Covered green party ID Authoriza tion(s) No Information Social [...]
--- OUTSIDE RECORDS SUMMARY | 2024-06-18 09:39 | XMS_ITS | Clinical Summary ---
Author Organization [facility] Address [address] [place] [address] Care Team Providers Care Sanitary Aide Name Role Phone Alexey Medrano Primary Care Provider [phone] Allergies Active Allergy Reactions Criticality Noted Date Comments Amoxicillin-Pot Clavulanate Nausea and Vomiting Low 03/03/2023 Medications lisinopril (PRINIVIL) 20 mg tablet 09/21/19 19 Active iron-vitamin C-vitamin T07-wipfz acid-succinic acid (MULTIGEN PLUS) 366-47-46-1-50 pn-nc-yij-mg-mg Tablet tablet Take by mouth. A ctive multivitamin (DAILY-MIREYA) tablet Take 1 Tablet by mouth daily. Active ascorbic acid (VITAMIN C ORAL) Take by mouth. Activ e COVID-19 VACC,MRNA,MODER NA,-PF IM Inject by intramuscular injection. Lot [id number] Through [facility] Second shot in one month 04/02/19 [...] as needed. 60 Tablet 3 4:36 PM EXECUTIVE ASST 02/29/20 23 Active ibuprofen (MOTRIN) 600 mg tablet Take 1 Tablet (600 mg) by mouth every 6 hours as needed for mild pain. 60 Tablet 3 4:36 PM EXECUTIVE ASST 02/29/20 23 Active Saccharomyces boulardii (FLORASTOR) 250 mg Capsule Take 1 Capsule (250 mg) by mouth 2 times daily. 60 Capsule 3 4:36 PM EXECUTIVE ASST 02/29/20 23 Active cefUROXime axetil (CEFTIN) 500 mg tablet Take 1 Tablet (500 mg) by mouth 2 times daily. 18 Tablet 3 4:36 PM EXECUTIVE ASST 02/29/20 23 Active chlorhexidine gluconate (Peridex) 0.12 [...] daily. 240 mL 1 05/25/19 25 Active levoFLOXacin (LEVAQUIN) 500 mg tablet Take 1 Tablet (500 mg) by mouth daily for 10 days. 10 Tablet 06/14/19 25 025 Active levoFLOXacin (LEVAQUIN) 500 mg tablet Take 1 Tablet (500 mg) by mouth daily for 7 days. 10 Tablet 06/01/19 25 025 Active Problems Patient Care Coordination No te Formatting of this note migh t be different from the original. Primary Care: Sid Barrios PA-C Referring Provider: Sid Barrios PA-C [address] [facility] [address] [place] [address] Other: Problem Noted Date Diagnosed Date Osteonecrosis of mandible 02/27/2023 Facial abscess 02/24/2023 Osteomyelitis 02/24/2023 Malignant neoplasm of axillary tail of right fem josé miguel breast 01/21/2022 Cancer, metastatic to bone 01/21/2022 Invasive ductal carcinoma of breast, female, rig ht 10/18/2018 Lump of right breast 09/21/2018 Abnormality of left breast on screening mammogra m 09/21/2018 Encounters Date Type Department Care Team Description 06/13/2024 Orders Only [facility] Oncology and Hematology - Walter [address] [place] [address] Kiran Rivera MD 06/06/2024 Orders Only [facility] Oncology and Hematology - Walter [address] [place] [address] Kiran Rivera MD Invasive ductal carcinoma of breast, female, right (CMS/HCC) 05/31/2024 8:30 AM CDT Office Visit [facility] Oncology and Hematology - Walter [address] [place] [address] Kiran Rivera MD Invasive ductal carcinoma of breast, female, right (CMS/HCC) (Primary Dx) 05/31/2024 Orders Only [facility] Oncology and Hematology - Walter [address] [place] [address] Kiran Rivera MD 05/25/2024 Orders Only [facility] Oncology and Hematology - Walter [address] [place] [address] Kiran Rivera MD 05/24/2024 Telephone [facility] Oncology and Hematology - Walter [address] [place] [address] Kiran Rivera MD Mega 05/23/2024 Orders Only [facility] Oncology and Hematology - Walter [address] Kiran Rivera MD Invasive ductal carcinoma of breast, female, right (CMS/HCC) 05/18/2024 Orders Only [facility] Oncology and Hematology - [address] [place] [address] Kiran Rivera MD 05/17/2024 Orders Only [facility] Oncology and Hematology - Walter [address] Kiran Rivera MD 05/16/2024 Refill [facility] Oncology and Hematology - Walter [address] Kiran Rivera MD Acute diarrhea; Invasive ductal carcinoma of breast, female, right (CMS/HCC) 05/11/2024 Orders Only [facility] Oncology and Hematology - Walter [address] [place] [address] Kiran Rivera MD 05/10/2024 Orders Only [facility] Oncology and Hematology - [address] Kiran Rivera MD Encounter for monitoring cyclophosphamide therapy (Primary Dx); Invasive ductal carcinoma of breast, female, right (CMS/HCC) 05/09/2024 Orders Only [facility] Oncology and Hematology - Walter [address] [place] [id number] Kiran Rivera MD Invasive ductal carcinoma of breast, female, right (CMS/HCC) 05/04/2024 External Device Data STL ABSTRACTION Provider, Abstract 05/02/2024 8:45 AM EXECUTIVE ASST Office Visit [facility] Oncology and Hematology - Walter [address] Kiran Rivera MD Invasive ductal carcinoma of breast, female, right (CMS/HCC) (Primary Dx) 05/02/2024 Orders Only [facility] Oncology and Hematology - Walter [address] [place] [id number] Kiran Rivera MD 04/25/2024 Orders Only [facility] Oncology and Hematology - Walter [address] [place] [address] Kiran Rivera MD Invasive ductal carcinoma of breast, female, right (CMS/HCC) 04/18/2024 Orders Only [facility] Oncology and Hematology - Walter [address] [place] [address] Kiran Rivera MD Invasive ductal carcinoma of breast, female, right (CMS/HCC) (Primary Dx) 04/11/2024 Orders Only [facility] Oncology and Hematology - Walter [address] [place] [address] Kiran Rivera MD Invasive ductal carcinoma of breast, female, right (CMS/HCC) 03/30/2024 Orders Only [facility] Oncology and Hematology - Walter [address] [place] [address] Kiran Rivera MD 03/29/2024 Orders Only [facility] Oncology and Hematology - Walter [address] [place] [address] Kiran Rivera MD 03/28/2024 Orders Only [facility] Oncology and Hematology - Walter [address] [place] [address] Kiran Rivera MD Invasive ductal carcinoma of breast, female, right (CMS/HCC) 03/24/2024 External Device Data STL ABSTRACTION Provider, Abstract 03/22/2024 Orders Only [facility] Oncology and Hematology - Walter [address] [place] [address] Kiran Rivera MD from Last [...] Sign Reading Time Taken Comments Blood Pressure 134/85 05/31/2024 8:36 AM CDT Pulse 130 05/31/2024 8:33 AM CDT Pt. is nervous Temperature 36.5 C (97.7 F) 05/31/2024 8:33 AM CDT Respiratory Rate 15 05/31/2024 8:33 AM CDT Oxygen Saturation 95% 05/31/2024 8:3 3 AM CDT Inhaled Oxygen Concentration - - Weight 79.1 kg (174 lb 6.4 oz) 05/31/2024 8:33 AM CDT Height 162.6 cm (5' 4 ) 03/17/2023 2:08 PM EXECUTIVE ASST Body Mass Index 29.94 03/17/2023 2:08 PM EXECUTIVE ASST Plan of Treatment Upcoming Encounters Date Type Department Care Team (Late st Contact Info) Description 06/20/2024 Orders Only [facility] Oncology and Hematology [facility] [address] [place] [address] Kiran Rivera MD [address] [place] [address] Invasive ductal carcinoma of breast, female, right (CMS/HCC) 06/27/2024 8:30 AM CDT Office Visit [facility] Oncology and [facility] [address] [place] [address] Tiarra Virk MD [address] [place] [address] Health Maintenance Due Date Last [...] series) 12/05/2026 Medical Devices Implanted Type Area Entry Table Operator Device Identifier Shelf Expiration Date Model / Serial / Lot Rn Pool Clip Surgiclip Ii Talon 9.75in [id number] - [id number] Implanted:Qty: 1 on 03/31/2019 [place] [facility] Right: Breast [employer] - COVIDIEN 07/31/2023 [id number] / / [id number] Hemostatic Surgicel 2x14in 1950 - [id number] Implanted:Qty: 1 on 03/31/2019 [place]issa Du[place] [facility]ostatic Right: Breast [employer] 04/30/20231950 / / [id number] Hemostatic Surgicel 2x14in 1950 - [id number] Implanted:Qty: 1 on 03/31/2019 by Alissa Duarte [place] [facility] Hemostatic Right: Breast [employer] 04/30/20231950 / / [id number] Procedures Procedure Name Priority Date/Time Associated Diagnosis Comments COMPREHENSIVE METABOLIC PANEL Routine 05/30/2024 11:36 AM CDT CANCER ANTIGEN 15-3 Routine 05/24/2024 3 :[address] CHEST ABDOMEN PELVIS W CONT Routine 05/17/2024 2:40 PM CDT CBC MIXED CELL DIFFERENTIAL Routine 05/16/2024 11:43 AM CDT BASIC METABOLIC PANEL Routine 05/10/2024 9:54 AM CDT BASIC METABOLIC PANEL Routine 05/02/2024 2:38 PM EXECUTIVE ASST CBC WITH AUTODIFFERENTIAL Routine 05/02/2024 10:30 AM EXECUTIVE ASST BASIC METABOLIC PANEL Routine 03/29/2024 4:11 PM EXECUTIVE ASST CBC WITH DIFFERENTIAL Routine 03/29/2024 4:08 PM EXECUTIVE ASST BASIC METABOLIC PANEL Routine 03/29/2024 4:05 PM EXECUTIVE ASST CBC WITH DIFFERENTIAL Routine 03/29/2024 4:04 PM EXECUTIVE ASST CBC WITH DIFFERENTIAL Routine 03/21/2024 10:48 AM EXECUTIVE ASST MAMMO 3D RIAN DIAGNOSTIC BILAT W OR WO CAD Routine 01/21/2022 12:54 PM EXECUTIVE ASST Invasive ductal carcinoma of breast, female, right (CMS/HCC) Malignant neoplasm of axillary tail of right female breast, unspecified estrogen receptor status from Last 3 Months or Most Recently Relevant to Health Maintenance Results * COMPREHENSIVE METABOLIC PANEL (05/30/2024 11:36 AM CDT) Blood Result Erika Rivera MD CHEMISTRY ORDERABLES Final Resu lt * CANCER ANTIGEN 15-3 (05/24/2024 3:20 PM CDT) Blood Result Erika Rivera MD CHEMISTRY ORDERABLES Final Resu lt * CT CHEST ABDOMEN PELVIS W CONT (05/17/2024 2:40 PM CDT) Anatomical Region Laterality Modality Chest Computed Tomogra phy Result Erika Rivera MD CT ORDERABLES Final Result * CBC MIXED CELL DIFFERENTIAL (05/16/2024 11:43 AM CDT) Blood Result Erika Rivera MD HEMATOLOGY ORDERABLES Final Res ult * BASIC METABOLIC PANEL (05/10/2024 9:54 AM CDT) Only the most recent of4 resultswithin the time period is included. Blood Result Erika Rivera MD CHEMISTRY ORDERABLES Final Resu lt * CBC WITH AUTODIFFERENTIAL (05/02/2024 10:30 AM EXECUTIVE ASST) Blood Result Erika Rivera MD HEMATOLOGY ORDERABLES Final Res ult * CBC WITH DIFFERENTIAL (03/29/2024 4:08 PM EXECUTIVE ASST) Only the most recent of3 resultswithin the time period is included. Blood Result Erika Rivera MD HEMATOLOGY ORDERABLES Final Res ult * MAMMO DIAG BILAT 3D RIAN W OR WO CAD (01/21/2022 12:54 PM EXECUTIVE ASST) Anatomical Region Laterality Modality Breast Bilateral Mammography 01/21/2022 12:5 4 PM EXECUTIVE ASST Impressions 01/21/2022 3:32 PM EXECUTIVE ASST IMPRESSION: No suspicious findings to suggest malignancy in either breast. Annual mammography is recommended. OVERALL FINAL ASSESSMENT: BI-RADS CATEGORY 2 - Benign findings. Narrative 01/21/2022 3:32 PM EXECUTIVE ASST EXAM: BILATERAL DIAGNOSTIC DIGITAL MAMMOGRAM WITH 3D [...] Maintenance Insurance MEDICARE PART A AND B [facility] MEDICARE PART A AND B [facility] [place] [id number] RX [facility] Medicare Part D RX [employer] (INTERNAL) [facility] Plans Advance Directives For more information, please contact: [phone] * Full Code (Latest Code Status on File) Date Activated Date Inactivated Comments 02/24/2023 10:43 PM 02/28/2023 7:18 PM Care Teams Sanitary Aide Relationship Specialty Start Date End Date Alexey Medrano DO [address] [facility] [address] [place] [address] PCP - General Internal Medicine 12/15/23
--- OUTSIDE RECORDS SUMMARY | 2024-06-18 09:39 | XMS_ITS | Clinical Summary ---
Author Organization [facility] Address [address] [facility] [place] [address] Care Team Providers Care Senior Formulation Scientist Name Role Phone Sid Barrios PA-C Primary Care Provide r Source Comments [facility],non-[facility] Affiliates and Associated Physician Practices is amultiple site organization consisting of ambulatory clinics and hospital sitesin [place], [place], [place] and [place]. This disclosure is being madepursuant to the Care Everywhere program and may not contain all information available regarding this patient. Last updated 17.[facility] [employer] Social History Tobacco Use Types Packs/Day Years Used Date Smoking Tobacco: Never Assessed Comments Unknown Sex and Gender Information Value Date Recorded Sex Assigned at Not on file Legal Sex Female 11:00 AM CDT Gender Identity Not on file [...] VACCINE (1 of 2) 12/05/2001 COVID-19 VACCINE (1 - 2023-2 5 season) 2023 DEPRESSION SCREENING 03/02/2024 INFLUENZA VACCINE (Season Ended) 2024 Respiratory Syncytial Virus (RSV) Vaccine Pt: or [...] on patient's age to complete this topic Insurance SELF PAY NO INSURANCE Member Subscriber Plan / Payer (Ef fective for All Dates) Name:Nita Robert Member ID:Not on file Relation to Subscriber:Self Name:NITA ROBERT Subscriber ID:Not on file Payer ID:Not on file Group ID:Not on file Type:Self Pay Address: [place], [place] MEDICARE [employer] [employer] MEDICARE [employer] Care Teams Senior Formulation Scientist Relationship Specialty Start Date End Date Sid Barrios PA-C [address] [place] [address] PCP - General Physician Leather Goods I Assembler 02/27/23
--- OUTSIDE RECORDS SUMMARY | 2024-06-18 09:39 | XMS_ITS | Encounter Summary ---
Author Organization [facility] Address [address] [place] [address] Care Team Providers Care Child Care Specialist Name Role Phone Alexey Medrano DO Primary Care Provider [phone] Encounter Details Date Type Department Care Team (Late Contact Info) Description 03/23/2019 Chart Note [facility] Radiation Therapy [address] [place] [address] [place] [address] [place] [address] Social History Tobacco Use Types [...] st Contact Info) Description 06/20/2024 Orders Only [facility] Oncology and Hematology - [address] [place] [address] Kiran Rivera MD [address] [facility] [address] [place] [address] Invasive ductal carcinoma of breast, female, right (CMS/HCC) 06/27/2024 8:30 AM CDT Office Visit [facility] Oncology and Hematology - Walter [address] [place] [address] Tiarra Virk MD [address] [place] [address] documented as of this encounter Visit Diagnoses Not on filedocumented in this encounter Care Teams Child Care Specialist Relationship Specialty Start Date End Date Alexey Medrano DO [address] [facility] [address] [facility] [address] [place] [address] PCP - General Internal Medicine 12/15/23 documented as of this encounter
--- NOTE | 2024-06-18 09:41 | ECG_ITS ---
Test Date: 2024-06-18 09:55:05 Measurements Intervals Meredith Rate: 127 P: 50 WA: 155 QRS: 40 QRSD: 89 T: -12 QT: 305 QTc: 444 Interpretive Statements SINUS TACHYCARDIA NONSPECIFIC T-WAVE ABNORMALITY- INFERIOR LEADS ABNORMAL ECG No previous ECG available for comparison Electronically Signed On 06-18-2024 10:07:26 CDT by Carlitos Rowell D.O.
[2024-06-18] MEDS: LACTATED RINGERS 1,000 ML 999 ML IV CONT ×2 (10:06→12:46)
--- NOTE | 2024-06-18 10:07 | ED.GENADULT ---
HPI - General Adult General Chief complaint: Weakness Stated complaint: weakness, decreased appetite Time Seen by Provider: 06/18/24 09:55 History of Present Illness HPI narrative: 73-year-old female presents emergency department for evaluation for increasing weakness and decreased p.o. intake. Patient is currently being treated for breast cancer that metastasized to bone and possible lung. Patient's last treatment was approximately 3 weeks ago and she is due for another treatment on Thursday. Patient does feel increasingly weak. Patient denies any shortness of breath at rest but does have exertional shortness of breath. Patient does have worsening lower extremity edema. Patient denies any associated chest pain with this. Patient follows up with Dr. Rivera Related Data Home Medications ?Medication ?Instructions ?Recorded ?Confirmed ?Last Taken ?Type ascorbic acid (vitamin C) 500 mg 500 mg PO BID 12/17/18 06/18/24 12/25/23 History tablet famotidine 20 mg tablet 20 mg PO DAILY 12/17/18 06/18/24 12/24/23 History multivitamin 1 tablet PO DAILY 12/17/18 06/18/24 12/24/23 History acetaminophen 500 mg capsule 1,000 mg PO Q8H PRN Pain 10/07/21 06/18/24 06/17/24 21:00 History 1,000 mg ferrous sulfate 325 mg (65 mg 325 mg PO BID 10/07/21 06/18/24 12/24/23 History iron) tablet vitamin B12 1 mg-folic acid 0.8 mg 1,000 tablet PO DAILY 07/23/23 06/18/24 12/24/23 History tablet diphenoxylate-atropine 2.5 1 tablet PO PRN PRN Diarrhea 12/25/23 06/18/24 06/18/24 08:00 History mg-0.025 mg tablet 1 tablet lisinopril 20 mg tablet 20 mg PO DAILY 12/25/23 06/18/24 12/25/23 History ondansetron 8 mg disintegrating 8 mg PO Q8H PRN Nausea 12/25/23 06/18/24 12/24/23 History tablet loperamide 2 mg capsule 2 mg PO PRN PRN Diarrhea 12/26/23 06/18/24 Unknown History megestrol 400 mg/10 mL (40 mg/mL) 400 mg PO DAILY 05/31/24 06/18/24 Unknown History oral suspension levofloxacin 500 mg tablet 500 mg PO DAILY 06/18/24 06/18/24 Unknown History prochlorperazine maleate 10 mg 10 mg PO Q8H PRN nausea and 06/18/24 06/18/24 Unknown History tablet vomiting Allergies Allergy/AdvReac Type Severity Reaction Status Date / Time amoxicillin (From Augmentin) AdvReac Nausea and Verified 06/18/24 14:52 Vomiting clavulanic acid (From AdvReac Nausea and Verified 06/18/24 14:52 Augmentin) Vomiting Review of Systems Review of Systems: All systems reviewed & are unremarkable except as noted in HPI and below PMFSH Past Medical History Medical History (Updated 06/18/24 @ 11:23 by Srini Selby MD) Chemotherapy induced diarrhea Breast cancer metastasized to bone History of breast cancer Diagnosed in 2018 status post right-sided lumpectomy and sentinel lymph node biopsy in 2019. Found to have recurrent metastatic disease and was started on chemotherapy in 2023. Anemia GERD (gastroesophageal reflux disease) HTN (hypertension) Surgical History Surgical History History of lumpectomy Hx laparoscopic cholecystectomy 12/30/[address] Haro Hx of appendectomy Open appendectomy Family History Family History Mother Patient's mother is Father Cerebrovascular accident Social History Social History Social History: Surrogate medical decision maker: Moe Marks, spouse. Code status: full code. Smoking status: Never smoker Second hand tobacco smoke exposure: No Alcohol intake: never Drinks per week: 1 Substance use: never Substance use type: does not use Do You Feel Safe in your Home?: Yes Lack of Transportation: No Lack of Food: Never True Current Housing: I Have Housing Concerned About Future Housing: No Difficulty Paying Gas/Electric Bills: No Difficulty Paying for Meds: No Currently Unemployed: No Education: Associate Degree Difficulty w/ Childcare or Family Care: No Living arrangements: with family Additional living arrangements comments: Lives with in [place]. They have 1 child. Spiritual care concerns: No Exam Narrative: APPEARANCE: Ill-appearing HEAD: normocephalic, atraumatic. EYES: PERRLA/EOMI, conjunctivae clear. NOSE: Normal no drainage EARS:TMS clear with good light reflex. THROAT: Pharynx clear, no exudate. NECK: Supple. No adenopathy, no masses. RESPIRATORY: Airway patent, respirations nonlabored. Clear to auscultation bilaterally, no rales, rhonchi, wheezing. CARDIOVASCULAR: Tachycardia ABDOMINAL: Soft, nontender, nondistended, normal bowel sounds MUSCULOSKELETAL: Lower extremity edema NEURO: Alert. Cranial nerves II through XII intact. Good gait. Good coordination SKIN: Warm, dry. Normal Color Course Vital Signs Vital signs: Vital Signs Temperature 97.7 F 06/18/24 09:42 Pulse Rate 130 H 06/18/24 09:42 Respiratory Rate 20 06/18/24 09:42 Blood Pressure 118/57 L 06/18/24 09:42 Pulse Oximetry 100 06/18/24 09:42 Oxygen Delivery Room Air 06/18/24 09:42 Temperature 98.1 F 06/18/24 14:23 Pulse Rate 116 H 06/18/24 16:00 Respiratory Rate 16 06/18/24 14:23 Blood Pressure 126/63 06/18/24 14:23 Pulse Oximetry 97 06/18/24 14:23 Oxygen Delivery Room Air 06/18/24 09:42 Medical Decision Making [facility] Narrative Medical decision making narrative: 73-year-old female presents emergency department for evaluation for shortness of breath, rapid heart rate and decreased p.o. intake. Patient is currently afebrile leukocytosis and hemoglobin 8.7 which is similar to her baseline. Patient does have acute kidney injury. Patient's proBNP is not significantly elevated. Patient's be treating with IV fluids due to presumed dehydration. After that of IV fluids patient's heart rate was improved. Patient is also being started on antibiotics for presumed pneumonia. Discussed with hospitalist patient was accepted for admission. Differential Diagnosis Differential Diagnosis: Dehydration, sinus tachycardia, pneumonia, acute kidney injury, Vital Signs Vital Signs: Vital Signs Temperature 97.7 F 06/18/24 09:42 Pulse Rate 130 H 06/18/24 09:42 Respiratory Rate 20 06/18/24 09:42 Blood Pressure 118/57 L 06/18/24 09:42 Pulse Oximetry 100 06/18/24 09:42 Oxygen Delivery Room Air 06/18/24 09:42 Temperature 98.1 F 06/18/24 14:23 Pulse Rate 116 H 06/18/24 16:00 Respiratory Rate 16 06/18/24 14:23 Blood Pressure 126/63 06/18/24 14:23 Pulse Oximetry 97 06/18/24 14:23 Oxygen Delivery Room Air 06/18/24 09:42 Lab Data Lab results reviewed: Yes I reviewed the patient's lab results. 06/18/24 10:05 06/18/24 10:05 Labs: Lab Results 06/18/24 06/18/24 Range/Units 10:05 11:01 WBC 4.3 L (4.5-10.0) K/mm3 RBC 2.56 L (4.2-5.4) M/mm3 Hgb 8.7 L (12.0-15.0) g/dL Hct 26.8 L (37.0-47.0) % MCV 104.7 H (80-100) fl MCH 34.0 (26-34) pg MCHC 32.5 (32-36) g/dl RDW 17.4 H (11.5-14.5) % Plt Count 211 (150-375) k/mm3 MPV 9.9 (7.4-10.4) fl Immature Gran % (Auto) 5.5 H (0-0.5) % Neut % (Auto) 63.5 (45.5-73.1) % Lymph % (Auto) 12.2 L (18.3-44.2) % Moca % (Auto) 17.1 H (2.6-8.5) % Eos % (Auto) 1.2 (0-4.4) % Baso % (Auto) 0.5 (0.2-1.2) % Lymph # (Auto) 0.53 L (0.9-3.2) K/mm3 Moca # (Auto) 0.7 H (0.1-0.6) K/mm3 Eos # (Auto) 0.1 (0-0.3) K/mm3 Baso # (Auto) 0.0 (0.0-0.1) K/mm3 Abs Immat Gran (auto) 0.24 H (0.00-0.031) K/mm3 Absolute Neuts (auto) 2.8 (1.3-6.7) K/mm3 Absolute Nucleated RBC 0.020 H (0.0-0.012) K/mm3 Band Neutrophils % Not Reportable Nucleated RBC % 0.5 H (0.0-0.2) % Platelet Estimate Adequate (Adequate) Anisocytosis 1+ Crenated Cell 1+ Schistocytes None seen PT 18.9 H (11.1-14.7) Seconds INR 1.6 APTT 55.7 H (22.3-36.8) Seconds Sodium 138 (137-145) mmol/L Potassium 4.2 (3.4-5.0) mmol/L Chloride 112 H (98-107) mmol/L Carbon Dioxide 8 L (22-30) mmol/L Anion Gap 18 H (4-12) mmol/L BUN 72 H D (7-17) mg/dL Creatinine 2.86 H (0.7-1.0) mg/dL Estim Creat Clear Calc 16 ml/min Estimated GFR 16 L (59 - ) Glucose 111 H (65-110) mg/dL Calcium 10.9 H (8.4-10.2) mg/dL Total Bilirubin 0.6 (0.2-1.3) mg/dL AST 103 H (14-36) U/L ALT 23 (6-35) U/L Alkaline Phosphatase 187 H (38-126) U/L NT-Pro-B Natriuret Pep 249 H (19.9-100) pg/mL Total Protein 7.0 (6.3-8.2) g/dL Albumin 3.9 (3.5-5.1) g/dL Urine Color Yellow (Yellow) Urine Appearance Clear (Clear) Urine pH 5.0 (5.0-9.0) Ur Specific [place] 1.019 (1.001-1.035) Urine Protein Trace (Negative) mg/dL Urine Glucose (UA) Negative (Negative) mg/dL Urine Ketones Negative (Negative) mg/dL Ur Blood (Man) Negative (Negative) Urine Nitrate Negative (Negative) Urine Bilirubin Negative (Negative) Urine Urobilinogen 0.2 (<2.0) mg/dL Add Ur Microanalysis Reviewed Leukocyte Esterase Rfl Negative (Negative) KIRSTY/UL Urine RBC 0-2 (0-2) /hpf Urine WBC 0-5 (0-3) /hpf Ur Squamous Epith Cells None seen (Few) /hpf Urine Bacteria None seen /hpf Urine Casts 11-20 Hyaline Casts Present (None) /lpf Imaging Data Radiologist's impression: Impressions Chest CT 06/18/24 11:03 IMPRESSION: 1. Mild interval progression in peripheral predominant reticular and patchy airspace opacities in both lungs which most likely infectious/inflammatory in etiology although differential would include less likely metastatic disease. 2. Diffuse patchy sclerosis of the bones consistent with metastatic disease with no change in chronic T9, T12 and L1 compression fractures. Critical Care Time Critical Care Time Critical Care Time: Yes Total Critical Care Time: 35 Discharge Plan Discharge Clinical Impression: IZAIAH (acute kidney injury), Weakness, Pneumonia Patient Disposition: Still a Patient Condition: Serious
[2024-06-18 10:12] LABS: Basophils Percent Auto 0.5 % (0.2-1.2); Eosinophils Absolute Auto 0.1 K/mm3 (0-0.3); Eosinophils Percent Auto 1.2 % (0-4.4); Hematocrit 26.8 % (37.0-47.0); Hemoglobin 8.7 g/dL (12.0-15.0); Immature Granulocyte Absolute 0.24 K/mm3 (0.00-0.031); Immature Granulocyte Percent A 5.5 % (0-0.5); Lymphocytes Absolute Auto 0.53 K/mm3 (0.9-3.2); Lymphocytes Percent Auto 12.2 % (18.3-44.2); Mean Corpuscular HGB Conc 32.5 g/dl (32-36); Mean Corpuscular Volume 104.7 fl (80-100); Mean Platelet Volume 9.9 fl (7.4-10.4); Monocytes Absolute Auto 0.7 K/mm3 (0.1-0.6); Monocytes Percent Auto 17.1 % (2.6-8.5); Neutrophils Absolute Auto 2.8 K/mm3 (1.3-6.7); Neutrophils Percent Auto 63.5 % (45.5-73.1); Nucleated Red Blood Cells Perc 0.5 % (0.0-0.2); Platelet Count Result 211 k/mm3 (150-375); Red Blood Count 2.56 M/mm3 (4.2-5.4); Red Cell Distribution Width 17.4 % (11.5-14.5); White Blood Count 4.3 K/mm3 (4.5-10.0)
--- OUTSIDE RECORDS SUMMARY | 2024-06-18 10:12 | XMS_ITS | Clinical Summary ---
Author Organization [facility] Address [address] [place] [address] Care Team Providers Care Glass Loading Equipment Tender Name Role Phone Sid Barrios PA-C Primary Care Provide r Source Comments [facility] Affiliates and Associated Physician Practices is amultiple site organization consisting of ambulatory clinics and hospital sitesin [place], [place], [place] and [place]. This disclosure is being madepursuant to the Care Everywhere program and may not contain all information available regarding this patient. Last updated 17.[facility] [email or web address] Social History Tobacco Use Types Packs/Day Years [...] Group ID:Not on file Type:Self Pay Address: [place], [place] MEDICARE [employer] MEDICARE [employer] Care Teams Glass Loading Equipment Tender Relationship Specialty Start Date End Date Sid Barrios PA-C [address] [place] [address] PCP - General Physician Supervising Film Or Videotape Editor 02/27/23
--- OUTSIDE RECORDS SUMMARY | 2024-06-18 10:12 | XMS_ITS | Continuity of Care Document ---
Author Organization [facility] Address [address] [facility] [address] [place] [address] Phone Care Team Providers Care Fingerprint Expert Name Role Phone Connie Moctezuma Unavailable Unavailable Advance Directives Directive Yes / No Effective Date File Name No Information Encounters Encounter Description Practice Location Reason(s) For Visit Diagnoses Date Provider Providers Copied on Encounter [facility], [id number] [place] [address] [address], [place], [place], [id number], [place] tel:[phone] [facility] No Information 5-[address] Rhianna Rosales. [address] , [address], [place], [address], [place]. tel:[phone] Family History Family Member Type Diagnosis Age At Onset No Information Payers Payer name Insurance type Covered libertarian ID Authoriza tion(s) No Information Social History [...]
--- OUTSIDE RECORDS SUMMARY | 2024-06-18 10:12 | XMS_ITS | Encounter Summary ---
Author Organization [facility] Address [address] [place] [address] Care Team Providers Care Clinical Engineering Director Name Role Phone Alexey Medrano DO Primary Care Provider [phone] Encounter Details Date Type Department Care Team (Late Contact Info) Description 03/23/2019 Chart Note [facility] Radiation Therapy [address] [place] [address] [place] [address] [place] [address] Social History Tobacco Use Types [...] st Contact Info) Description 06/20/2024 Orders Only [facility] Oncology and Hematology - [address] [place] [address] Kiran Rivera MD [address] [place] [address] Invasive ductal carcinoma of breast, female, right (CMS/HCC) 06/27/2024 8:30 AM CDT Office Visit [facility] Oncology and Hematology - [address] [place] [address] Tiarra Virk MD [address] [place] [address] documented as of this encounter Visit Diagnoses Not on filedocumented in this encounter Care Teams Clinical Engineering Director Relationship Specialty Start Date End Date Alexey Medrano DO [address] [facility] [address] [place] [address] PCP - General Internal Medicine 12/15/23 documented as of this encounter
--- OUTSIDE RECORDS SUMMARY | 2024-06-18 10:12 | XMS_ITS | Clinical Summary ---
Author Organization [facility] Address [address] [place] [address] Care Team Providers Care Linux Administrator Name Role Phone Alexey Medrano Primary Care Provider [phone] Allergies Active Allergy Reactions Criticality Noted Date Comments Amoxicillin-Pot Clavulanate Nausea and Vomiting Low 03/03/2023 Medications lisinopril (PRINIVIL) 20 mg tablet 09/21/19 19 Active iron-vitamin C-vitamin S22-bhota acid-succinic acid (MULTIGEN PLUS) 153-69-84-1-50 jj-kc-adj-mg-mg Tablet tablet Take by mouth. A ctive multivitamin (DAILY-MIREYA) tablet Take 1 Tablet by mouth daily. Active ascorbic acid (VITAMIN C ORAL) Take by mouth. Activ e COVID-19 VACC,MRNA,MODER NA,-PF IM Inject by intramuscular injection. Lot [id number] Through [facility] Second shot in one month 04/02/19 [...] as needed. 60 Tablet 3 4:36 PM SOFTWARE WRITER 02/29/20 23 Active ibuprofen (MOTRIN) 600 mg tablet Take 1 Tablet (600 mg) by mouth every 6 hours as needed for mild pain. 60 Tablet 3 4:36 PM SOFTWARE WRITER 02/29/20 23 Active Saccharomyces boulardii (FLORASTOR) 250 mg Capsule Take 1 Capsule (250 mg) by mouth 2 times daily. 60 Capsule 3 4:36 PM SOFTWARE WRITER 02/29/20 23 Active cefUROXime axetil (CEFTIN) 500 mg tablet Take 1 Tablet (500 mg) by mouth 2 times daily. 18 Tablet 3 4:36 PM SOFTWARE WRITER 02/29/20 23 Active chlorhexidine gluconate (Peridex) 0.12 [...] PA-C Referring Provider: Sid Barrios PA-C [address] [place] [address] Other: Problem Noted Date Diagnosed Date Osteonecrosis [...] Department Care Team Description 06/13/2024 Orders Only [facility] Oncology and Hematology - [address] [place] [address] Kiran Rivera MD 06/06/2024 Orders Only [facility] Oncology and Hematology - [address] [place] [address] Kiran Rivera MD Invasive ductal carcinoma of breast, female, right (CMS/HCC) 05/31/2024 8:30 AM CDT Office Visit [facility] Oncology and Hematology - [address] [place] [address] Kiran Rivera MD Invasive ductal carcinoma of breast, female, right (CMS/HCC) (Primary Dx) 05/31/2024 Orders Only [facility] Oncology and Hematology - [address] [place] [address] Kiran Rivera MD 05/25/2024 Orders Only [facility] Oncology and Hematology - [address] [place] [address] Kiran Rivera MD 05/24/2024 Telephone [facility] Oncology and Hematology - [address] [place] [address] Kiran Rivera MD Mega 05/23/2024 Orders Only [facility] Oncology and Hematology - [address] Kiran Rivera MD Invasive ductal carcinoma of breast, female, right (CMS/HCC) 05/18/2024 Orders Only [facility] Oncology and Hematology - [address] [place] [address] Kiran Rivera MD 05/17/2024 Orders Only [facility] Oncology and Hematology - [address] Kiran Rivera MD 05/16/2024 Refill [facility] Oncology and Hematology - [address] Kiran Rivera MD Acute diarrhea; Invasive ductal carcinoma of breast, female, right (CMS/HCC) 05/11/2024 Orders Only [facility] Oncology and Hematology - [address] [place] [address] Kiran Rivera MD 05/10/2024 Orders Only [facility] Oncology and Hematology - [address] Kiran Rivera MD Encounter for monitoring cyclophosphamide therapy (Primary Dx); Invasive ductal carcinoma of breast, female, right (CMS/HCC) 05/09/2024 Orders Only [facility] Oncology and Hematology - [address] [place] [id number] Kiran Rivera MD Invasive ductal carcinoma of breast, female, right (CMS/HCC) 05/04/2024 External Device Data STL ABSTRACTION Provider, Abstract 05/02/2024 8:45 AM SOFTWARE WRITER Office Visit [facility] Oncology and Hematology - [address] Kiran Rivera MD Invasive ductal carcinoma of breast, female, right (CMS/HCC) (Primary Dx) 05/02/2024 Orders Only [facility] Oncology and Hematology - [address] [place] [id number] Kiran Rivera MD 04/25/2024 Orders Only [facility] Oncology and Hematology - [address] [place] [address] Kiran Rivera MD Invasive ductal carcinoma of breast, female, right (CMS/HCC) 04/18/2024 Orders Only [facility] Oncology and Hematology - [address] [place] [address] Kiran Rivera MD Invasive ductal carcinoma of breast, female, right (CMS/HCC) (Primary Dx) 04/11/2024 Orders Only [facility] Oncology and Hematology - [address] [place] [address] Kiran Rivera MD Invasive ductal carcinoma of breast, female, right (CMS/HCC) 03/30/2024 Orders Only [facility] Oncology and Hematology - [address] [place] [address] Kiran Rivera MD 03/29/2024 Orders Only [facility] Oncology and Hematology - [address] [place] [address] Kiran Rivera MD 03/28/2024 Orders Only [facility] Oncology and Hematology - [address] [place] [address] Kiran Rivera MD Invasive ductal carcinoma of breast, female, right (CMS/HCC) 03/24/2024 External Device Data STL ABSTRACTION Provider, Abstract 03/22/2024 Orders Only [facility] Oncology and Hematology - [address] [place] [address] Kiran Rivera MD from Last [...] cm (5' 4 ) 03/17/2023 2:08 PM SOFTWARE WRITER Body Mass Index 29.94 03/17/2023 2:08 PM SOFTWARE WRITER Plan of Treatment Upcoming Encounters Date Type Department Care Team (Late st Contact Info) Description 06/20/2024 Orders Only [facility] Oncology and Hematology [facility] [address] [place] [address] Kiran Rivera MD [address] [place] [address] Invasive ductal carcinoma of breast, female, right (CMS/HCC) 06/27/2024 8:30 AM CDT Office Visit [facility] Oncology and [facility] [address] [place] [address] Tiarra Virk MD [address] [place] [address] Health Maintenance Due Date Last [...] series) 12/05/2026 Medical Devices Implanted Type Area Office Services Specialist Device Identifier Shelf Expiration Date Model / Serial / Lot Shovel Log Loader Operator Clip Surgiclip Ii Talon 9.75in [id number] - [id number] Implanted:Qty: 1 on 03/31/2019 by Alissa Duarte MD at [facility] Clip Right: Breast [employer] - COVID[employer]EN 07/31/2023 [id number] / / [id number] Hemostatic Surgicel 2x14in 1950 - [id number] Implanted:Qty: 1 on 03/31/2019 by Alissa Duarte MD at [facility] Hemostatic Right: Breast [employer] 04/30/20231950 / / [id number] Hemostatic Surgicel 2x14in 1950 - [id number] Implanted:Qty: 1 on 03/31/2019 by Alissa Duarte MD at [facility] Hemostatic Right: Breast [employer] 04/30/20231950 / / [id number] Procedures Procedure Name Priority Date/Time Associated Diagnosis Comments COMPREHENSIVE METABOLIC PANEL Routine 05/30/2024 11:36 AM CDT CANCER ANTIGEN 15-3 Routine 05/24/2024 3 :[address] CHEST ABDOMEN PELVIS W CONT Routine 05/17/2024 2:40 PM CDT CBC MIXED CELL DIFFERENTIAL Routine 05/16/2024 11:43 AM CDT BASIC METABOLIC PANEL Routine 05/10/2024 9:54 AM CDT BASIC METABOLIC PANEL Routine 05/02/2024 2:38 PM SOFTWARE WRITER CBC WITH AUTODIFFERENTIAL Routine 05/02/2024 10:30 AM SOFTWARE WRITER BASIC METABOLIC PANEL Routine 03/29/2024 4:11 PM SOFTWARE WRITER CBC WITH DIFFERENTIAL Routine 03/29/2024 4:08 PM SOFTWARE WRITER BASIC METABOLIC PANEL Routine 03/29/2024 4:05 PM SOFTWARE WRITER CBC WITH DIFFERENTIAL Routine 03/29/2024 4:04 PM SOFTWARE WRITER CBC WITH DIFFERENTIAL Routine 03/21/2024 10:48 AM SOFTWARE WRITER MAMMO 3D RIAN DIAGNOSTIC BILAT W OR WO CAD Routine 01/21/2022 12:54 PM SOFTWARE WRITER Invasive ductal carcinoma of breast, female, right [...] * CBC WITH AUTODIFFERENTIAL (05/02/2024 10:30 AM SOFTWARE WRITER) Blood Result Erika Rivera MD HEMATOLOGY ORDERABLES Final Res ult * CBC WITH DIFFERENTIAL (03/29/2024 4:08 PM SOFTWARE WRITER) Only the most recent of3 resultswithin the time period is included. Blood Result Erika Rivera MD HEMATOLOGY ORDERABLES Final Res ult * MAMMO DIAG BILAT 3D RIAN W OR WO CAD (01/21/2022 12:54 PM SOFTWARE WRITER) Anatomical Region Laterality Modality Breast Bilateral Mammography 01/21/2022 12:5 4 PM SOFTWARE WRITER Impressions 01/21/2022 3:32 PM SOFTWARE WRITER IMPRESSION: No suspicious findings to suggest malignancy in either breast. Annual mammography is recommended. OVERALL FINAL ASSESSMENT: BI-RADS CATEGORY 2 - Benign findings. Narrative 01/21/2022 3:32 PM SOFTWARE WRITER EXAM: BILATERAL DIAGNOSTIC DIGITAL MAMMOGRAM WITH 3D [...] Maintenance Insurance MEDICARE PART A AND B [facility] MEDICARE PART A AND B [facility] [place] [id number] RX [facility] Medicare Part D RX [employer] (INTERNAL) [facility] Plans Advance Directives For more information, please contact: [phone] * Full Code (Latest Code Status on File) Date Activated Date Inactivated Comments 02/24/2023 10:43 PM 02/28/2023 7:18 PM Care Teams Linux Administrator Relationship Specialty Start Date End Date Alexey Medrano DO [address] [place] [address] PCP - General Internal Medicine 12/15/23
[2024-06-18 10:23] LABS: Alanine Aminotransferase 23 U/L (6-35); Albumin Level 3.9 g/dL (3.5-5.1); Alkaline Phosphatase 187 U/L (38-126); Anion Gap 18 mmol/L (4-12); Aspartate Amino Transferase 103 U/L (14-36); Bilirubin,Total 0.6 mg/dL (0.2-1.3); Blood Urea Nitrogen 72 mg/dL (7-17); Calcium 10.9 mg/dL (8.4-10.2); Carbon Dioxide 8 mmol/L (22-30); Chloride 112 mmol/L (98-107); Estimated CRCL calculation 16 ml/min; Estimated Glomerular Filt Rate 16; Glucose 111 mg/dL (65-110); Potassium 4.2 mmol/L (3.4-5.0); Sodium 138 mmol/L (137-145)
[2024-06-18 10:34] LABS: INR 1.6; Prothrombin Time 18.9 Seconds (11.1-14.7)
[2024-06-18 10:35] LABS: Partial Thromboplastin Time 55.7 Seconds (22.3-36.8)
[2024-06-18 10:42] LABS: Anisocytosis 1+; Crenated RBC 1+; Platelet Estimate Adequate (Adequate)
[2024-06-18 10:43] LABS: Schistocytes None Seen
[2024-06-18 11:00] LABS: NT Pro B Type Natriuretic Pept 249 pg/mL (19.9-100)
--- NOTE | 2024-06-18 11:20 | PC.NURSE ---
Bedside report provided by FELIX Chamberlain. Pt. has no additional requests at this time. This RN to assume care at this time.
[2024-06-18 11:24] LABS: Add Urine Microscopic? YES; Appearance Urine Clear (Clear); Bacteria Urine None Seen /hpf; Bilirubin Urine Negative (Negative); Blood Urine Negative (Negative); Color Urine Yellow (Yellow); Glucose Urine UA Negative (Negative); Hyaline Casts Urine Present /lpf; Ketones Urine Negative (Negative); Leukocyte Esterase Ur Negative LEU/UL (Negative); Need Manual Microscopic Reviewed; Nitrate Urine Negative (Negative); Protein Urine Trace mg/dL (Negative); RBC Urine 0-2 /hpf (0-2); Specific Grav Ur 1.019 (1.001-1.035); Squamous Epithelial Cell Urine None Seen /hpf (Few); Urobilinogen Urine 0.2 mg/dL (<2.0); WBC Urine 0-5 /hpf (0-3)
[2024-06-18] MEDS: levoFLOXacin 750 MG/D5W 150 ML 750 MG/150 ML BAG 100 MG IVPB (12:48)
--- NOTE | 2024-06-18 12:58 | P.HP_ITS ---
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 She was started on oral antibiotics about a week with no improvement in her breathing. She complains of tremors and anxiety but not rigors or chills. she said that her cough has improved but her weakness and shortness of breath have not. Shows leukopenia at 4.3, hemoglobin of 8.7 baseline being around 10, chloride of 112, carbon dioxide of 8, INR gap 18, BUN of 72, creatinine of 2.86 with baseline being around 1.18, AST 103 alkaline phos 187, proBNP 249, UA shows no acute process. CT of the chest shows Mild interval progression in peripheral predominant reticular and patchy airspace opacities in both lungs which most likely infectious/inflammatory in etiology although differential would include less likely metastatic disease. Her las CT chest was on 12/08/23 which showed There is no evidence of any significant mediastinal, hilar or axillary lymphadenopathy. The mediastinal soft tissues appear normal. Stable 2 mm right upper lobe pulmonary nodule/granuloma. There is linear right basilar scarring or atelectasis. There is linear left basilar scarring or atelectasis. Calcified left lower lobe granulomas are present. Review of Systems Review of Systems: 12 systems were reviewed and are negativ e except for as per HPI. [facility] Past Medical History Medical History (Updated 06/18/24 @ 11:23 by Srini Selby MD) Chemotherapy induced diarrhea Breast cancer metastasized to bone History of breast cancer Diagnosed in 2019 status post right-sided lumpectomy and sentinel lymph node biopsy in 2019. Found to have recurrent metastatic disease and was started on chemotherapy in 2023. Anemia GERD (gastroesophageal reflux disease) HTN (hypertension) Surgical History Surgical History History of lumpectomy Hx laparoscopic cholecystectomy 12/30/[address] Haro Hx of appendectomy Open appendectomy Family History Family History Mother Patient's mother is Father Cerebrovascular accident Social History Social History (Reviewed 01/11/24 @ 13:11 by CHAS Alva Social History: Surrogate medical decision maker: Moe Marks, spouse. Code status: full code. Smoking status: Never smoker Second hand tobacco smoke exposure: No Alcohol intake: never Drinks per week: 1 Substance use: never Substance use type: does not use Do You Feel Safe in your Home?: Yes Lack of Transportation: No Lack of Food: Never True Current Housing: I Have Housing Concerned About Future Housing: No Difficulty Paying Gas/Electric Bills: No Difficulty Paying for Meds: No Currently Unemployed: No Education: Associate Degree Difficulty w/ Childcare or Family Care: No Living arrangements: with family Additional living arrangements comments: Lives with in [place]. They have 1 child. Spiritual care concerns: No Meds Home Medications and Allergies Home Medications ?Medication ?Instructions ?Recorded ?Confirmed ?Type ascorbic acid (vitamin C) 500 mg 500 mg PO BID 12/17/18 06/18/24 History tablet famotidine 20 mg tablet 20 mg PO DAILY 12/17/18 06/18/24 History multivitamin 1 tablet PO DAILY 12/17/18 06/18/24 History acetaminophen 500 mg capsule 1,000 mg PO Q8H PRN Pain 10/07/21 06/18/24 History ferrous sulfate 325 mg (65 mg 325 mg PO BID 10/07/21 06/18/24 History iron) tablet vitamin B12 1 mg-folic acid 0.8 mg 1,000 tablet PO DAILY 07/23/23 06/18/24 History tablet diphenoxylate-atropine 2.5 1 tablet PO PRN PRN Diarrhea 12/25/23 06/18/24 History mg-0.025 mg tablet lisinopril 20 mg tablet 20 mg PO DAILY 12/25/23 06/18/24 History ondansetron 8 mg disintegrating 8 mg PO Q8H PRN Nausea 12/25/23 06/18/24 History tablet loperamide 2 mg capsule 2 mg PO PRN PRN Diarrhea 12/26/23 06/18/24 History megestrol 400 mg/10 mL (40 mg/mL) 400 mg PO DAILY 05/31/24 06/18/24 History oral suspension levofloxacin 500 mg tablet 500 mg PO DAILY 06/18/24 06/18/24 History prochlorperazine maleate 10 mg 10 mg PO Q8H PRN nausea and 06/18/24 06/18/24 History tablet vomiting Allergies Allergy/AdvReac Type Severity Reaction Status Date / Time amoxicillin (From Augmentin) AdvReac Nausea and Verified 06/18/24 14:52 Vomiting clavulanic acid (From AdvReac Nausea and Verified 06/18/24 14:52 Augmentin) Vomiting Vital Signs Vital Signs - 24 hr 06/18/24 09:42 06/18/24 09:50 06/18/24 09:51 Temperature 97.7 F Pulse Rate 130 H 134 H 130 H Respiratory Rate 20 18 22 H Blood Pressure 118/57 L 140/71 Pulse Oximetry 100 97 100 Oxygen Delivery Room Air 06/18/24 10:00 06/18/24 10:01 06/18/24 10:15 Temperature Pulse Rate 126 H 122 H 115 H Respiratory Rate 21 H 20 19 Blood Pressure 110/71 120/54 L Pulse Oximetry 97 99 98 Oxygen Delivery 06/18/24 10:16 06/18/24 10:30 06/18/24 10:31 Temperature Pulse Rate 117 H 116 H 108 H Respiratory Rate 20 26 H 18 Blood Pressure 107/87 Pulse Oximetry 98 93 96 Oxygen Delivery 06/18/24 12:52 Temperature Pulse Rate 119 H Respiratory Rate 24 H Blood Pressure 132/77 Pulse Oximetry 98 Oxygen Delivery Exam Narrative: General: chronically ill , appears stated age. HEENT: normocephalic, atraumatic. Mucous membranes moist. EOMI, PERRLA, bilateral sclera anicteric, no conjunctival injection. Neck supple without JVD, lymphadenopathy, or bruit. Respiratory: clear to auscultation bilaterally. No rales/rhonic/wheezes. port site without erythema or induration Cardiovascular: Regular rate and rhythm, normal S1-S2 upon ascultation. No murmurs, rubs, or clicks. PMI is nondisplaced, capillary refill less than 3 second. Abdomen: Soft, round, no pulsatile masses, nondistended and nontender. No rebound, no guarding. No CVA tenderness, no hepatosplenomegaly. Bowel sounds present to all four quadrants. No high pitch or tinkling sounds, resonant to percussion. Extremities: No cyanosis, clubbing, or edema present. Pulses are palpable 2/2. Active ROM to all four extremities. Neuro: Alert and orientated x 4. PERRLA. Cranial nerves 2-12 intact without focal deficit. Skin: Warm, dry, and intact, without rash, erythema, or lesion. Psych: pleasant, cooperative, normal speech, normal affect, no hallucinations, no dysarthia H&P: Results Labs Labs: Short CBC 06/18/24 Range/Units 10:05 WBC 4.3 L (4.5-10.0) K/mm3 Hgb 8.7 L (12.0-15.0) g/dL Hct 26.8 L (37.0-47.0) % Plt Count 211 (150-375) k/mm3 BMP 06/18/24 10:05 Sodium 138 Potassium 4.2 Chloride 112 H Carbon Dioxide 8 L BUN 72 H D Creatinine 2.86 H Glucose 111 H Calcium 10.9 H Liver Function 06/18/24 Range/Units 10:05 Total Bilirubin 0.6 (0.2-1.3) mg/dL AST 103 H (14-36) U/L ALT 23 (6-35) U/L Alkaline Phosphatase 187 H (38-126) U/L Albumin 3.9 (3.5-5.1) g/dL Urine 06/18/24 Range/Units 11:01 Urine Color Yellow (Yellow) Urine Appearance Clear (Clear) Urine pH 5.0 (5.0-9.0) Ur Specific [place] 1.019 (1.001-1.035) Urine Protein Trace (Negative) mg/dL Urine Glucose (UA) Negative (Negative) mg/dL Assessment and Plan Assessment and plan (1) Acute on chronic kidney failure: Code(s): N17.9 - Acute kidney failure, unspecified; N18.9 - Chronic kidney disease, unspecified Status: Acute Assessment and Plan: IV fluids hydration Hold lisinopril and nephrotoxic medications BMP in the AM (2) Pneumonia: Code(s): J18.9 - Pneumonia, unspecified organism Status: Acute Assessment and Plan: Versus possible metastases to lungs Pulmonology consulted pending recommendations, available by telephone on Thursday and in house on Thursday Started on Levaquin, per patient was on oral Levaquin IVF for hydration (3) Breast cancer metastasized to bone: Code(s): C50.919 - Malignant neoplasm of unspecified site of unspecified female breast; C79.51 - Secondary malignant neoplasm of bone Status: Acute Assessment and Plan: last treatment about two weeks ago (4) Chemotherapy induced diarrhea: Code(s): K52.1 - Toxic gastroenteritis and colitis; T45.1X5A - Adverse effect of antineoplastic and immunosuppressive drugs, initial encounter Status: Acute Assessment and Plan: Okay for home meds Quality VTE Prophylaxis VTE prophylaxis: mechanical ordered and pharmacologic ordered Hospitalist MIPS Advance Care Plan I have confirmed that the patient's Advanced Care Plan is present, code status is documented, or surrogate decision maker is listed in patient medical record.: Yes Medication Reconciliation I have utilized all available resources to obtain, update and review the patients current medications (includes all prescriptions, OTC, herbals, cannabis, and nutritional supplements).: Yes
[2024-06-18] MEDS: CENTRAL LINE FLUSH 10 ML IV PUSH ×2 (13:56→20:55)
--- NOTE | 2024-06-18 14:11 | ADMGEN ---
This patient, Syeda Marks, was admitted to Medical Room 250-01. Patient/family oriented to hospital policies and general routines including ID bracelet, bed and alarms, visiting hours, pain management, procedures, bathroom and other care routines, personal items, smoking policy, room service/diet, and visiting hours. Information on how to activate the Rapid Response Team has been discussed. Patient/Family are encouraged to report perceived risks to care and to ask questions if they do not understand what they are told or what they should do.
[2024-06-18] MEDS: ACETAMINOPHEN 325 MG TABLET 650 MG PO (15:42)
[2024-06-18] MEDS: ALPRAZolam (*CRX) 0.25 MG TABLET PO (15:43)
[2024-06-18] MEDS: ASCORBIC ACID 500 MG TABLET PO (17:19)
[2024-06-18] MEDS: FERROUS SULFATE 325 MG TABLET DR BY MOUTH (17:19)
[2024-06-18] MEDS: SODIUM CHLORIDE 0.9% IV 1,000 ML 125 ML IV CONT (17:21)
[2024-06-18] MEDS: HEPARIN SODIUM 5,000 UNITS/ML VIAL 5000 UNITS SUB-Q (20:53)
[2024-06-19] VITALS (9 sets, daily range): BP systolic 116–123; BP diastolic 53–56; PULSE 69–112; RESP 16–18; TEMP 36.6–37.3; O2SAT 96–99
[2024-06-19] MEDS: SODIUM CHLORIDE 0.9% IV 1,000 ML 125 ML IV CONT ×3 (02:38→18:45)
[2024-06-19] MEDS: LOPERAMIDE HCL 2 MG CAPSULE PO ×3 (05:45→10:42)
[2024-06-19] MEDS: CENTRAL LINE FLUSH 10 ML IV PUSH ×3 (05:51→20:28)
[2024-06-19 06:06] LABS: Basophils Percent Auto 0.6 % (0.2-1.2); Eosinophils Percent Auto 0.6 % (0-4.4); Hematocrit 23.9 % (37.0-47.0); Immature Granulocyte Absolute 0.21 K/mm3 (0.00-0.031); Immature Granulocyte Percent A 6.6 % (0-0.5); Lymphocytes Percent Auto 18.8 % (18.3-44.2); Mean Corpuscular HGB Conc 33.5 g/dl (32-36); Mean Corpuscular Hemoglobin 34.3 pg (26-34); Mean Corpuscular Volume 102.6 fl (80-100); Monocytes Absolute Auto 0.5 K/mm3 (0.1-0.6); Neutrophils Absolute Auto 1.8 K/mm3 (1.3-6.7); Neutrophils Percent Auto 57.4 % (45.5-73.1); Nucleated Red Blood Cells Perc 0.9 % (0.0-0.2); Platelet Count Result 178 k/mm3 (150-375); Red Blood Count 2.33 M/mm3 (4.2-5.4); Red Cell Distribution Width 17.3 % (11.5-14.5); White Blood Count 3.2 K/mm3 (4.5-10.0)
[2024-06-19 06:19] LABS: Anion Gap 14 mmol/L (4-12); Blood Urea Nitrogen 51 mg/dL (7-17); Calcium 10.4 mg/dL (8.4-10.2); Carbon Dioxide 10 mmol/L (22-30); Chloride 116 mmol/L (98-107); Estimated CRCL calculation 24 ml/min; Estimated Glomerular Filt Rate 25; Glucose 82 mg/dL (65-110); Potassium 4.3 mmol/L (3.4-5.0); Sodium 140 mmol/L (137-145)
[2024-06-19 06:40] LABS: Anisocytosis 1+; Crenated RBC 2+; Platelet Estimate Adequate (Adequate); Schistocytes None Seen
[2024-06-19] MEDS: FAMOTIDINE 20 MG TABLET PO (08:14)
[2024-06-19] MEDS: FERROUS SULFATE 325 MG TABLET DR BY MOUTH ×2 (08:14→16:35)
[2024-06-19] MEDS: ASCORBIC ACID 500 MG TABLET PO ×2 (08:14→16:35)
[2024-06-19] MEDS: MULTIVITAMINS THERAPEUTIC TAB (*BKC) 1 TABLET PO (08:14)
[2024-06-19] MEDS: MEGESTROL ACETATE (*CHEMO) ORAL SUSP 40 MG/ML SYR 400 MG PO (08:15)
[2024-06-19] MEDS: HEPARIN SODIUM 5,000 UNITS/ML VIAL 5000 UNITS SUB-Q ×2 (08:15→20:21)
[2024-06-19 12:22] LABS: Magnesium 1.3 mg/dL (1.6-2.3)
--- NOTE | 2024-06-19 13:55 | P.PNIM_ITS ---
Progress Note: A&P Assessment and Plan (1) Acute on chronic kidney failure: Code(s): N17.9 - Acute kidney failure, unspecified; N18.9 - Chronic kidney disease, unspecified Status: Acute Assessment and Plan: IV fluids hydration Hold lisinopril and nephrotoxic medications BMP in the AM (2) Pneumonia: Code(s): J18.9 - Pneumonia, unspecified organism Status: Acute Assessment and Plan: Versus possible metastases to lungs Pulmonology consulted pending recommendations, available by telephone on Thursday and in house on Thursday Started on Levaquin, per patient was on oral Levaquin IVF for hydration (3) Breast cancer metastasized to bone: Code(s): C50.919 - Malignant neoplasm of unspecified site of unspecified female breast; C79.51 - Secondary malignant neoplasm of bone Status: Acute Assessment and Plan: last treatment about two weeks ago (4) Chemotherapy induced diarrhea: Code(s): K52.1 - Toxic gastroenteritis and colitis; T45.1X5A - Adverse effect of antineoplastic and immunosuppressive drugs, initial encounter Status: Acute Assessment and Plan: Okay for home meds Plan upon arrival patient was dehydrated, weak and confused, patient has been receiving IVF and stats feeling much better, patient CT scan of chest is concerning for pneumonia, and being treated with levofloxacin, will follow up on blood C/S, patient is scheduled to have chemo infusion June 21, will inform her oncologist patient is in the hospital, will continue IVF and IV abx, will have PT/OT evaluate and further recommendation to follow. Subjective Date/time seen: 06/19/24 13:55 Interval history: weakness Narrative: 18-year-old female past medical history of currently being treated for breast cancer that metastasized to bone, anemia, hypertension chronic diarrhea secon yuri to chemotherapy presents the hospital with weakness. She was started on oral antibiotics about a week with no improvement in her breathing. She complains of tremors and anxiety but not rigors or chills. she said that her cough has improved but her weakness and shortness of breath have not. Shows leukopenia at 4.3, hemoglobin of 8.7 baseline being around 10, chloride of 112, carbon dioxide of 8, INR gap 18, BUN of 72, creatinine of 2.86 with baseline being around 1.18, AST 103 alkaline phos 187, proBNP 249, UA shows no acute process. CT of the chest shows Mild interval progression in peripheral predominant reticular and patchy airspace opacities in both lungs which most likely infectious/inflammatory in etiology although differential would include less likely metastatic disease. Her las CT chest was on 12/08/23 which showed There is no evidence of any significant mediastinal, hilar or axillary lymphadenopathy. The mediastinal soft tissues appear normal. Stable 2 mm right upper lobe pulmonary nodule/granuloma. There is linear right basilar scarring or atelectasis. There is linear left basilar scarring or atelectasis. Calcified left lower lobe granulomas are present. upon arrival patient was dehydrated, weak and confused, patient has been receiving IVF and stats feeling much better, patient CT scan of chest is concerning for pneumonia, and being treated with levofloxacin, will follow up on blood C/S, patient is scheduled to have chemo infusion June 21, will inform her oncologist patient is in the hospital, will continue IVF and IV abx, will have PT/OT evaluate and further recommendation to follow. Review of Systems Review of Systems: 12 systems were reviewed and are negativ e except for as per HPI. Exam Narrative: Patient is comfortable, NAD HEENT: eyes are clear and none icteric LUNGS:CTA HEART: RR S1S2 ABD: BS+, Soft and nontender Lower extremities: no edema SKIN: nonjaundiced Neuro: grossly intact. Objective Data Vital Signs Vital Signs: Vital Signs - 24 hr 06/18/24 14:23 06/18/24 16:00 06/18/24 20:00 Temperature 36.7 C Pulse Rate 128 H 116 H Respiratory Rate 16 Blood Pressure 126/63 Pulse Oximetry 97 Oxygen Delivery Room Air 06/18/24 20:00 06/18/24 22:56 06/19/24 00:00 Temperature 36.4 C Pulse Rate 109 H 110 H 96 Respiratory Rate 16 Blood Pressure 116/56 L Pulse Oximetry 96 Oxygen Delivery 06/19/24 04:00 06/19/24 05:49 06/19/24 08:00 Temperature 36.6 C Pulse Rate 98 106 H 99 Respiratory Rate 16 Blood Pressure 122/56 L Pulse Oximetry 97 Oxygen Delivery 06/19/24 12:00 Temperature Pulse Rate 112 H Respiratory Rate Blood Pressure Pulse Oximetry Oxygen Delivery Intake/Output Intake/Output: Intake & Output 06/16/24 06/17/24 06/18/24 06/19/24 23:59 23:59 23:59 23:59 Intake Total 1050 2710.8 Output Total 50 Balance 1000 2710.8 Meds/Results Medications: Active Medications Generic Name Dose Route Start Last Admin Trade Name Freq PRN Reason Stop Dose Admin Acetaminophen 650 mg 06/18/24 15:02 06/18/24 15:42 Acetaminophen 325 Mg Tablet PO 650 mg Q4H PRN Administration Mild Pain (1-3) or Fever Alprazolam 0.25 mg 06/18/24 15:02 06/18/24 15:43 Alprazolam (*Crx) 0.25 Mg Tablet PO 0.25 mg TID PRN Administration Anxiety Ascorbic Acid 500 mg 06/18/24 17:00 06/19/24 08:14 Ascorbic Acid 500 Mg Tablet PO 500 mg BID AMADO Administration Famotidine 20 mg 06/19/24 09:00 06/19/24 08:14 Famotidine 20 Mg Tablet PO 20 mg DAILY AMADO Administration Ferrous Sulfate 325 mg 06/18/24 17:00 06/19/24 08:14 Ferrous Sulfate [address] BY MOUTH 325 mg BID AMADO Administration Heparin Sodium (Beef Lung) 50 units 06/19/24 09:00 06/19/24 08:22 Heparin Flush 50 Units/5 Ml Syringe IV PUSH Not Given QAM AMADO Heparin Sodium (Beef Lung) 50 units 06/18/24 10:10 Heparin Flush 50 Units/5 Ml Syringe IV PUSH PRN PRN after intermittent infusion Heparin Sodium (Beef Lung) 50 units 06/18/24 10:10 Heparin Flush 50 Units/5 Ml Syringe IV PUSH PRN PRN after blood draws Heparin Sodium (Porcine) 500 units 06/18/24 10:10 Heparin Sodium Lock Flush 500 Units/5 Ml Syringe IV PUSH PRN PRN see comments below Heparin Sodium (Porcine) 5,000 units 06/18/24 21:00 06/19/24 08:15 Heparin Sodium 5,000 Units/Ml Vial SUB-Q 5,000 units Q12HR AMADO Administration Levofloxacin/Dextrose 500 mg in 100 mls @ 66.667 mls/hr 06/20/24 12:00 Levaquin 500 Mg/D5w 100 Ml IVPB Q48H AMADO Sodium Chloride 1,000 mls @ 125 mls/hr 06/18/24 15:55 06/19/24 10:24 Normal Saline Iv IV CONT 125 mls/hr .Q8H AMADO Administration Loperamide HCl 2 mg 06/18/24 19:16 06/19/24 10:42 Loperamide Hcl 2 Mg Capsule PO 2 mg PRN PRN Administration Diarrhea Megestrol Acetate 400 mg 06/19/24 09:00 06/19/24 08:15 Megestrol Acetate (*Chemo) Oral Susp 40 Mg/Ml Syr PO 400 mg DAILY AMADO Administration Multivitamins Therapeutic 1 tablet 06/19/24 09:00 06/19/24 08:14 Multivitamins Therapeutic Tab (*Bkc) PO 1 tablet DAILY AMADO Administration Ondansetron HCl 8 mg 06/18/24 15:07 Ondansetron Hcl Odt 4 Mg Tablet PO Q8H PRN Nausea Prochlorperazine Maleate 10 mg 06/18/24 15:03 Prochlorperazine Maleate 5 Mg Tablet PO Q8H PRN nausea and vomiting Sodium Chloride 10 ml 06/18/24 14:00 06/19/24 05:51 Central Line Flush IV PUSH 10 ml Q8HR AMADO Administration Radiology Results: ITS Impressions Chest CT 06/18/24 11:03 IMPRESSION: 1. Mild interval progression in peripheral predominant reticular and patchy airspace opacities in both lungs which most likely infectious/inflammatory in etiology although differential would include less likely metastatic disease. 2. Diffuse patchy sclerosis of the bones consistent with metastatic disease with no change in chronic T9, T12 and L1 compression fractures. Labs Labs: Laboratory Results - last 24 hr 06/19/24 06/19/24 05:46 05:51 WBC 3.2 L RBC 2.33 L Hgb 8.0 L Hct 23.9 L MCV 102.6 H MCH 34.3 H MCHC 33.5 RDW 17.3 H Plt Count 178 MPV 10.0 Immature Gran % (Auto) 6.6 H Neut % (Auto) 57.4 Lymph % (Auto) 18.8 [place] % (Auto) 16.0 H Eos % (Auto) 0.6 Baso % (Auto) 0.6 Lymph # (Auto) 0.60 L [place] # (Auto) 0.5 Eos # (Auto) 0.0 Baso # (Auto) 0.0 Abs Immat Gran (auto) 0.21 H Absolute Neuts (auto) 1.8 Absolute Nucleated RBC 0.030 H Band Neutrophils % Not Reportable Nucleated RBC % 0.9 H Platelet Estimate Adequate Anisocytosis 1+ Crenated Cell 2+ Schistocytes None seen Sodium 140 Potassium 4.3 Chloride 116 H Carbon Dioxide 10 L Anion Gap 14 H BUN 51 H D Creatinine 1.95 H Estim Creat Clear Calc 24 Estimated GFR 25 L Glucose 82 Calcium 10.4 H Magnesium 1.3 L Quality VTE Prophylaxis VTE prophylaxis: mechanical ordered and pharmacologic ordered
--- NOTE | 2024-06-19 14:31 | P.CONONC_ITS ---
Assessment and Plan Assessment and plan (1) Breast cancer metastasized to bone: Code(s): C50.919 - Malignant neoplasm of unspecified site of unspecified female breast; C79.51 - Secondary malignant neoplasm of bone Status: Acute Assessment and Plan: Patient has active metastatic breast cancer and is getting treatment with Dr. Rivera with IV chemotherapy Enhertu (Fam Trastuzumab deruxtecan). Patient was first diagnosed with Right breast cancer ER/MA Positive and Her2 positive disease 09/21/2018. She underwent neoadjuvant chemotherapy with TCH-P and then Lumpectomy with sentinel node biopsy on 03/31/19. She then underwent radiation therapy and 1 year of Herceptin which she finished 01/2020. Patient then was found to have metastatic breast cancer to bones on PET/CT performed 10/01/21 after observation of increasing CA 15-3. Patient then started first line chemotherapy for metastatic breast cancer with Lapatinib, Letrozole and Herceptin. She had severe diarrhea with Lapatinib and herceptin. Progression of bone mets were noted on Bone scan dne 02/12/23. Patient then started second line agent for metastatic breast cancer with Fam Trastuzumab Deruxtecan (Enhertu) and remains on this chemotherapy. Last CT scan done 05/17/24 showed bilateral pulmonary nodules concerning for infection and bone scan done 05/17/[address] Rivera treated patient with oral levofloxacin for 10 days in April 2024 with no relief. Her levofloxacin prescription was renewed last week when she came to infusion for Procrit injection. Patient is admitted for bilateral pneumonia and acute renal failure secondary to dehydration. She has been started on IV normal saline and IV levofloxacin. Care per hospitalist team. I will inform the [facility] that patient will not be coming for infusion on 06/21/24 where she is scheduled for next Enhertu infusion. Will continue to follow. HPI Data of Consult Date/Time: 06/19/24 14:31 Requesting Physician: Dre Russell MD Primary Care Provider: Alexey Medrano DO Consult Narrative Narrative: Syeda Marks is a 73 year old female who presented to ER 06/18/24 with concerns of progressive weakness and decreased appetite. Patient has active metastatic breast cancer and is getting treatment with Dr. Rivera with IV chemotherapy Enhertu (Fam Trastuzumab deruxtecan). Patient was first diagnosed with Right breast cancer ER/MA Positive and Her2 positive disease 09/21/2018. She underwent neoadjuvant chemotherapy with TCH-P and then Lumpectomy with sentinel node biopsy on 03/31/19. She then underwent radiation therapy and 1 year of Herceptin which she finished 01/2020. Patient then was found to have metastatic breast cancer to bones on PET/CT performed 10/01/21 after observation of increasing CA 15-3. Patient then started first line chemotherapy for metastatic breast cancer with Lapatinib, Letrozole and Herceptin. She had severe diarrhea with Lapatinib and herceptin. Progression of bone mets were noted on Bone scan dne 02/12/23. Patient then started second line agent for metastatic breast cancer with Fam Trastuzumab Deruxtecan (Enhertu) and remains on this chemotherapy. Last CT scan done 05/17/24 showed bilateral pulmonary nodules concerning for infection and bone scan done 05/17/[address] Rivera treated patient with oral levofloxacin for 10 days in April 2024 with no relief. Her prescription was renewed last week when she came to infusion for Procrit injection. Patient reports that she continued to experience progressive weakness and decreased oral intake and then presented to ER on 06/18/24. She also has progressive dyspnea and anxiety. Denies any f/c/night sweats. CT scan of chest done at admission shows progressive bilateral lung opacities. Creatinine was 2.86. WBC is 4.3 and Hemoglobin is 8.7g/dL. Patient is admitted for pnumonia and acute renal failure secondary to dehydration. The patient is started on IV levofloxacin and IV normal saline. at bedside. Review of Systems 2 Review of Systems: Patient reports weakness, fatigue, dyspnea with decreased appetite and oral intake. Patient also reports anxiety with her metastatic breast cancer and treatment. reports that patient also has lower extremity pain bilaterally (mid thigh down) in the evening. Patient endorses restless legs and urge to move at night. Denies f/c, night sweats. No back pain. No abdominal pain. she has diarrhea (1-2 BM per day) from chemotherapy. Denies falls, syncope, TIA or CVA. No hematochezia or melena. No hematuria. [facility] Past Medical History Medical History (Updated 06/19/24 @ 14:48 by Tiarra Virk MD) Chemotherapy induced diarrhea Breast cancer metastasized to bone History of breast cancer Diagnosed in 2019 status post right-sided lumpectomy and sentinel lymph node biopsy in 2019. Found to have recurrent metastatic disease and was started on chemotherapy in 2023. Anemia GERD (gastroesophageal reflux disease) HTN (hypertension) Surgical History Surgical History (Reviewed 01/11/24 @ 13:11 by Alta Mansfield [facility]) History of lumpectomy Hx laparoscopic cholecystectomy 12/30/[address] Haro Hx of appendectomy Open appendectomy Family History Family History Mother Patient's mother is Father Cerebrovascular accident Social History Social History (Reviewed 01/11/24 @ 13:11 by Alta Mansfield [facility]) Social History: Surrogate medical decision maker: Moe Marks, spouse. Code status: full code. Smoking status: Never smoker Second hand tobacco smoke exposure: No Alcohol intake: never Drinks per week: 1 Substance use: never Substance use type: does not use Do You Feel Safe in your Home?: Yes Lack of Transportation: No Lack of Food: Never True Current Housing: I Have Housing Concerned About Future Housing: No Difficulty Paying Gas/Electric Bills: No Difficulty Paying for Meds: No Currently Unemployed: No Education: Associate Degree Difficulty w/ Childcare or Family Care: No Living arrangements: with family Additional living arrangements comments: Lives with in [place]. They have 1 child. Spiritual care concerns: No Meds Home Medications and Allergies Home Medications ?Medication ?Instructions ?Recorded ?Confirmed ?Type ascorbic acid (vitamin C) 500 mg 500 mg PO BID 12/17/18 06/18/24 History tablet famotidine 20 mg tablet 20 mg PO DAILY 12/17/18 06/18/24 History multivitamin 1 tablet PO DAILY 12/17/18 06/18/24 History acetaminophen 500 mg capsule 1,000 mg PO Q8H PRN Pain 10/07/21 06/18/24 History ferrous sulfate 325 mg (65 mg 325 mg PO BID 10/07/21 06/18/24 History iron) tablet vitamin B12 1 mg-folic acid 0.8 mg 1,000 tablet PO DAILY 07/23/23 06/18/24 History tablet diphenoxylate-atropine 2.5 1 tablet PO PRN PRN Diarrhea 12/25/23 06/18/24 History mg-0.025 mg tablet lisinopril 20 mg tablet 20 mg PO DAILY 12/25/23 06/18/24 History ondansetron 8 mg disintegrating 8 mg PO Q8H PRN Nausea 12/25/23 06/18/24 History tablet loperamide 2 mg capsule 2 mg PO PRN PRN Diarrhea 12/26/23 06/18/24 History megestrol 400 mg/10 mL (40 mg/mL) 400 mg PO DAILY 05/31/24 06/18/24 History oral suspension levofloxacin 500 mg tablet 500 mg PO DAILY 06/18/24 06/18/24 History prochlorperazine maleate 10 mg 10 mg PO Q8H PRN nausea and 06/18/24 06/18/24 History tablet vomiting Allergies Allergy/AdvReac Type Severity Reaction Status Date / Time amoxicillin (From Augmentin) AdvReac Nausea and Verified 06/18/24 14:52 Vomiting clavulanic acid (From AdvReac Nausea and Verified 06/18/24 14:52 Augmentin) Vomiting Vital Signs Vital Signs - 24 hr 06/18/24 16:00 06/18/24 20:00 06/18/24 20:00 Temperature Pulse Rate 116 H 109 H Respiratory Rate Blood Pressure Pulse Oximetry Oxygen Delivery Room Air 06/18/24 22:56 06/19/24 00:00 06/19/24 04:00 Temperature 36.4 C Pulse Rate 110 H 96 98 Respiratory Rate 16 Blood Pressure 116/56 L Pulse Oximetry 96 Oxygen Delivery 06/19/24 05:49 06/19/24 08:00 06/19/24 12:00 Temperature 36.6 C Pulse Rate 106 H 99 112 H Respiratory Rate 16 Blood Pressure 122/56 L Pulse Oximetry 97 Oxygen Delivery Exam 2 Narrative: Alert and oriented x3, pleasant, ill appearing female in no acute distress HEENT: No scleral icterus, EOMI, no other gross abnormalities CV: Tachycardic. no m/g/r RESP: Lungs are clear to auscultation without wheezing ABD: Soft, NT, ND, BS+ EXT: no edema NEURO: Intact PSYCH: pleasant mood at this time. Results Labs 06/19/24 05:51 06/19/24 05:51 Labs: Short CBC 06/19/24 Range/Units 05:51 WBC 3.2 L (4.5-10.0) K/mm3 Hgb 8.0 L (12.0-15.0) g/dL Hct 23.9 L (37.0-47.0) % Plt Count 178 (150-375) k/mm3 [facility] 06/19/24 05:51 Sodium 140 Potassium 4.3 Chloride 116 H Carbon Dioxide 10 L BUN 51 H D Creatinine 1.95 H Glucose 82 Calcium 10.4 H Imaging Radiologist's impression: 06/18/24- CT Chest at admission [facility] [address] [place] [address] CT Scan Report Signed Patient: Syeda Marks : 1950 MR#: [id number] Age: 73 Acct:[id number] Loc: [facility] ADM Date: 06/18/24Attending Dr: Ordering Physician: Srini Selby MD Date of Service: 06/18/24 Procedure(s): CT diagnostic chest wo con Accession Number(s): [id number] cc: Srini Selby MD; Alexey Medrano DO~ EXAMINATION: CT diagnostic chest wo con DATE: 06/18/2024 10:54 INDICATION: tachycardia TECHNIQUE: Computed tomography (CT) of the chest was performed without intravenous contrast. Additional 3D reconstructions utilizing coronal maximum intensity projection (MIP) were performed. Automated exposure control and iterative reconstruction technique were employed. The dose-length product was 300.22 mGy-cm. COMPARISON: 05/17/2024 FINDINGS: Respiratory motion in the lungs. Similar pattern of peripheral predominant reticular and patchy airspace opacities in both lungs. There appears be some subtle progression with increasing groundglass opacity associated with a few the nodule at the apical left upper lobe and new small peripheral patchy airspace opacity in the right upper lobe along the minor fissure. No pulmonary edema, pleural effusion or pneumothorax. Heart size is normal. No pericardial effusion. Thoracic aorta is normal in caliber. Left internal jugular central venous port catheter with distal tip at the caudal superior vena cava. No pathologically enlarged thoracic lymphadenopathy. Surgical clips at the right axilla likely related to prior lymph node dissection. Thoracic cholecystectomy clips the gallbladder fossa. Moderate thoracic spondylosis. There is patchy sclerosis of the bones consistent with osseous metastatic disease. Unchanged compression fractures at T9, T12-L1. IMPRESSION: 1. Mild interval progression in peripheral predominant reticular and patchy airspace opacities in both lungs which most likely infectious/inflammatory in etiology although differential would include less likely metastatic disease. 2. Diffuse patchy sclerosis of the bones consistent with metastatic disease with no change in chronic T9, T12 and L1 compression fractures.
[2024-06-20] VITALS (11 sets, daily range): BP systolic 133–142; BP diastolic 63–74; PULSE 72–129; RESP 16–18; TEMP 36.7–37.1; O2SAT 95–97; BMI 29.2
[2024-06-20] MEDS: SODIUM CHLORIDE 0.9% IV 1,000 ML 125 ML IV CONT ×3 (02:30→15:00)
[2024-06-20 06:12] LABS: Hematocrit 21.3 % (37.0-47.0); Mean Corpuscular HGB Conc 32.4 g/dl (32-36); Mean Corpuscular Hemoglobin 33.8 pg (26-34); Mean Corpuscular Volume 104.4 fl (80-100); Mean Platelet Volume 9.6 fl (7.4-10.4); Platelet Count Result 136 k/mm3 (150-375); Red Blood Count 2.04 M/mm3 (4.2-5.4); Red Cell Distribution Width 17.5 % (11.5-14.5); White Blood Count 3.1 K/mm3 (4.5-10.0)
[2024-06-20 06:24] LABS: Anion Gap 8 mmol/L (4-12); Blood Urea Nitrogen 31 mg/dL (7-17); Calcium 9.9 mg/dL (8.4-10.2); Carbon Dioxide 13 mmol/L (22-30); Chloride 121 mmol/L (98-107); Estimated CRCL calculation 32 ml/min; Estimated Glomerular Filt Rate 36; Glucose 83 mg/dL (65-110); Potassium 3.7 mmol/L (3.4-5.0); Sodium 142 mmol/L (137-145)
[2024-06-20 06:35] LABS: Hemoglobin 6.9 g/dL (12.0-15.0)
[2024-06-20] MEDS: CENTRAL LINE FLUSH 10 ML IV PUSH ×2 (06:44→15:15)
[2024-06-20] MEDS: LOPERAMIDE HCL 2 MG CAPSULE PO (06:52)
--- NOTE | 2024-06-20 07:00 | PC.NURSE ---
I called and left a message on Dr. Sorai cell phone about Hgb of 6.[address] Farrell as Pt. has Hx. breast CA with mets and receiving chemo. Pt. denies any dark stools at this time but states that she just had a loose stool & requested Immodium. Pt. states that she has IBS and normally has diarrhea every couple of days which usually resolve with Immodium.
[2024-06-20] MEDS: ASCORBIC ACID 500 MG TABLET PO ×2 (09:28→17:17)
[2024-06-20] MEDS: FAMOTIDINE 20 MG TABLET PO (09:28)
[2024-06-20] MEDS: MULTIVITAMINS THERAPEUTIC TAB (*BKC) 1 TABLET PO (09:28)
[2024-06-20] MEDS: FERROUS SULFATE 325 MG TABLET DR BY MOUTH ×2 (09:28→17:17)
[2024-06-20] MEDS: MEGESTROL ACETATE (*CHEMO) ORAL SUSP 40 MG/ML SYR 400 MG PO (09:29)
[2024-06-20] MEDS: HEPARIN SODIUM 5,000 UNITS/ML VIAL 5000 UNITS SUB-Q ×2 (09:29→20:34)
[2024-06-20 10:13] LABS: Hematocrit 22.3 % (37.0-47.0); Hemoglobin 7.3 g/dL (12.0-15.0)
[2024-06-20 11:44] LABS: Magnesium 1.3 mg/dL (1.6-2.3)
[2024-06-20] MEDS: levoFLOXacin 500 MG/D5W 100 ML 500 MG/100 ML BAG 66.67 MG IVPB (11:58)
[2024-06-20] MEDS: MAGNESIUM SULF 2 GM/WATER 50ML 2 GM/50 ML BAG IVPB (13:56)
--- NOTE | 2024-06-20 16:06 | P.PNIM_ITS ---
Progress Note: A&P Assessment and Plan (1) Acute on chronic kidney failure: Code(s): N17.9 - Acute kidney failure, unspecified; N18.9 - Chronic kidney disease, unspecified Status: Acute Assessment and Plan: IV fluids hydration Hold lisinopril and nephrotoxic medications BMP in the AM (2) Pneumonia: Code(s): J18.9 - Pneumonia, unspecified organism Status: Acute Assessment and Plan: Versus possible metastases to lungs Pulmonology consulted pending recommendations, available by telephone on Thursday and in house on Thursday Started on Levaquin, per patient was on oral Levaquin IVF for hydration (3) Breast cancer metastasized to bone: Code(s): C50.919 - Malignant neoplasm of unspecified site of unspecified female breast; C79.51 - Secondary malignant neoplasm of bone Status: Acute Assessment and Plan: last treatment about two weeks ago (4) Chemotherapy induced diarrhea: Code(s): K52.1 - Toxic gastroenteritis and colitis; T45.1X5A - Adverse effect of antineoplastic and immunosuppressive drugs, initial encounter Status: Acute Assessment and Plan: Okay for home meds Plan upon arrival patient was dehydrated, weak and confused, patient has been receiving IVF and stats feeling much better, abd her BUN and Serum Creatine is trending down, patient CT scan of chest is concerning for pneumonia, and being treated with levofloxacin, will follow up on blood C/S, patient is scheduled to have chemo infusion June 21, her oncologist canceled the appointment, today patient stats she is havin rest lef syndrome, will start patient on gabapentin, will continue IVF and IV abx, will have PT/OT evaluate and further recommendation to follow. 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 She was started on oral antibiotics about a week with no improvement in her breathing. She complains of tremors and anxiety but not rigors or chills. she said that her cough has improved but her weakness and shortness of breath have not. Shows leukopenia at 4.3, hemoglobin of 8.7 baseline being around 10, chloride of 112, carbon dioxide of 8, INR gap 18, BUN of 72, creatinine of 2.86 with baseline being around 1.18, AST 103 alkaline phos 187, proBNP 249, UA shows no acute process. CT of the chest shows Mild interval progression in peripheral predominant reticular and patchy airspace opacities in both lungs which most likely infectious/inflammatory in etiology although differential would include less likely metastatic disease. Her las CT chest was on 12/08/23 which showed There is no evidence of any significant mediastinal, hilar or axillary lymphadenopathy. The mediastinal soft tissues appear normal. Stable 2 mm right upper lobe pulmonary nodule/granuloma. There is linear right basilar scarring or atelectasis. There is linear left basilar scarring or atelectasis. Calcified left lower lobe granulomas are present. upon arrival patient was dehydrated, weak and confused, patient has been receiving IVF and stats feeling much better, abd her BUN and Serum Creatine is trending down, patient CT scan of chest is concerning for pneumonia, and being treated with levofloxacin, will follow up on blood C/S, patient is scheduled to have chemo infusion June 21, her oncologist canceled the appointment, today patient stats she is havin rest lef syndrome, will start patient on gabapentin, will continue IVF and IV abx, will have PT/OT evaluate and further recommendation to follow. Review of Systems Review of Systems: 12 systems were reviewed and are negativ e except for as per HPI. Exam Narrative: Patient is comfortable, NAD HEENT: eyes are clear and none icteric LUNGS:CTA HEART: RR S1S2 ABD: BS+, Soft and nontender Lower extremities: no edema SKIN: nonjaundiced Neuro: grossly intact. Objective Data Vital Signs Vital Signs: Vital Signs - 24 hr 06/19/24 20:00 06/19/24 20:00 06/19/24 22:00 Temperature 37.3 C Pulse Rate 105 H 112 H Respiratory Rate 18 Blood Pressure 116/53 L Pulse Oximetry 99 Oxygen Delivery Room Air 06/20/24 00:00 06/20/24 04:00 06/20/24 06:00 Temperature 36.9 C Pulse Rate 72 99 129 H Respiratory Rate 18 Blood Pressure 142/63 H Pulse Oximetry 95 Oxygen Delivery 06/20/24 08:00 06/20/24 09:05 06/20/24 09:30 Temperature Pulse Rate 117 H Respiratory Rate Blood Pressure Pulse Oximetry 95 Oxygen Delivery Room Air Room Air 06/20/24 12:00 06/20/24 13:36 Temperature 37.1 C Pulse Rate 118 H 109 H Respiratory Rate 17 Blood Pressure 133/72 Pulse Oximetry 95 Oxygen Delivery Intake/Output Intake/Output: Intake & Output 06/17/24 06/18/24 06/19/24 06/20/24 23:59 23:59 23:59 23:59 Intake Total 1050 4190.8 2744.2 Output Total 50 Balance 1000 4190.8 2744.2 Meds/Results Medications: Active Medications Generic Name Dose Route Start Last Admin Trade Name Freq PRN Reason Stop Dose Admin Acetaminophen 650 mg 06/18/24 15:02 06/18/24 15:42 Acetaminophen 325 Mg Tablet PO 650 mg Q4H PRN Administration Mild Pain (1-3) or Fever Alprazolam 0.25 mg 06/18/24 15:02 06/18/24 15:43 Alprazolam (*Crx) 0.25 Mg Tablet PO 0.25 mg TID PRN Administration Anxiety Ascorbic Acid 500 mg 06/18/24 17:00 06/20/24 09:28 Ascorbic Acid 500 Mg Tablet PO 500 mg BID AMADO Administration Famotidine 20 mg 06/19/24 09:00 06/20/24 09:28 Famotidine 20 Mg Tablet PO 20 mg DAILY AMADO Administration Ferrous Sulfate 325 mg 06/18/24 17:00 06/20/24 09:28 Ferrous Sulfate [address] BY MOUTH 325 mg BID AMADO Administration Gabapentin 200 mg 06/20/24 21:00 Gabapentin 100 Mg Capsule PO HS AMADO Heparin Sodium (Beef Lung) 50 units 06/19/24 09:00 06/20/24 09:29 Heparin Flush 50 Units/5 Ml Syringe IV PUSH 50 units QAM AMADO Administration Heparin Sodium (Beef Lung) 50 units 06/18/24 10:10 Heparin Flush 50 Units/5 Ml Syringe IV PUSH PRN PRN after intermittent infusion Heparin Sodium (Beef Lung) 50 units 06/18/24 10:10 Heparin Flush 50 Units/5 Ml Syringe IV PUSH PRN PRN after blood draws Heparin Sodium (Porcine) 500 units 06/18/24 10:10 Heparin Sodium Lock Flush 500 Units/5 Ml Syringe IV PUSH PRN PRN see comments below Heparin Sodium (Porcine) 5,000 units 06/18/24 21:00 06/20/24 09:29 Heparin Sodium 5,000 Units/Ml Vial SUB-Q 5,000 units Q12HR AMADO Administration Levofloxacin/Dextrose 500 mg in 100 mls @ 66.667 mls/hr 06/20/24 12:00 06/20/24 11:58 Levaquin 500 Mg/D5w 100 Ml IVPB 66.67 mls/hr Q48H AMADO Administration Sodium Chloride 1,000 mls @ 125 mls/hr 06/18/24 15:55 06/20/24 15:00 Normal Saline Iv IV CONT 125 mls/hr .Q8H AMADO Administration Loperamide HCl 2 mg 06/18/24 19:16 06/20/24 06:52 Loperamide Hcl 2 Mg Capsule PO 2 mg PRN PRN Administration Diarrhea Megestrol Acetate 400 mg 06/19/24 09:00 06/20/24 09:29 Megestrol Acetate (*Chemo) Oral Susp 40 Mg/Ml Syr PO 400 mg DAILY AMADO Administration Multivitamins Therapeutic 1 tablet 06/19/24 09:00 06/20/24 09:28 Multivitamins Therapeutic Tab (*Bkc) PO 1 tablet DAILY AMADO Administration Ondansetron HCl 8 mg 06/18/24 15:07 Ondansetron Hcl Odt 4 Mg Tablet PO Q8H PRN Nausea Prochlorperazine Maleate 10 mg 06/18/24 15:03 Prochlorperazine Maleate 5 Mg Tablet PO Q8H PRN nausea and vomiting Sodium Chloride 10 ml 06/18/24 14:00 06/20/24 15:15 Central Line Flush IV PUSH 10 ml Q8HR AMADO Administration Radiology Results: ITS Impressions Chest CT 06/18/24 11:03 IMPRESSION: 1. Mild interval progression in peripheral predominant reticular and patchy airspace opacities in both lungs which most likely infectious/inflammatory in etiology although differential would include less likely metastatic disease. 2. Diffuse patchy sclerosis of the bones consistent with metastatic disease with no change in chronic T9, T12 and L1 compression fractures. Labs Labs: Laboratory Results - last 24 hr 06/20/24 06/20/24 06/20/24 05:58 06:05 09:48 WBC 3.1 L RBC 2.04 L Hgb 6.9 L* 7.3 L Hct 21.3 L 22.3 L MCV 104.4 H MCH 33.8 MCHC 32.4 RDW 17.5 H Plt Count 136 L MPV 9.6 Sodium 142 Potassium 3.7 Chloride 121 H Carbon Dioxide 13 L Anion Gap 8 BUN 31 H D Creatinine 1.42 H Estim Creat Clear Calc 32 Estimated GFR 36 L Glucose 83 Calcium 9.9 Magnesium 1.3 L Quality VTE Prophylaxis VTE prophylaxis: mechanical ordered and pharmacologic ordered
--- NOTE | 2024-06-20 16:50 | P.CONPL_ITS ---
Assessment and Plan Assessment and plan (1) Pneumonia: Code(s): J18.9 - Pneumonia, unspecified organism Status: Acute Assessment and Plan: She developed pneumonia several weeks prior to admission, failed outpatient Levaquin. Chest x-ray 06/21 shows progression of infiltrates compared to the chest CT 06/18 Mild interval progression in peripheral predominant reticular and patchy airspace opacities in both lungs which most likely infectious/inflammatory in etiology although differential would include less likely metastatic disease. Her arterial blood gas shows a pO2 of 60.9 with a CO2 of 19. She has as hypoxemia with compensation, rapid breathing causing a respiratory alkalosis. This is been going on for a few days looking at her chemistries. Oxygen has been added, I discussed with the my concern for pulmonary embolus, would like to get a CTA. Risks include with her anemia she could have some bleeding, her platelets are borderline [phone]. Oncology said the platelets were fine to give Lovenox for concern of pulmonary embolus until workup is completed will also get lower extremity Dopplers. She may also have metastatic breast cancer to the lungs. Lungs show interstitial changes but this could be lepidic pattern, not a nodular mass but lung cancer cells that are more infiltrative. The diagnostic confirmation may include a transbronchial biopsy but she is not stable at this moment. Will discuss with Oncology further. (2) Acute hypoxemic respiratory failure: Code(s): J96.01 - Acute respiratory failure with hypoxia Status: Acute Assessment and Plan: Saturation was misleading, looked to be 94 and above on room air but this was due to a tachypnea, respiratory rate was in the mid 20s, and her pCO2 was in the teens. 06/21/24 7.509, pCO2 16.6, pO2 60.8 saturation 94% Room air (3) Acute respiratory alkalosis: Code(s): E87.3 - Alkalosis Status: Acute Assessment and Plan: Plan plan: Oxygen. CTA and LE dopplers. Start full dose Lovenox for possible PE. Will need further work up to determine if she has breast metastases to lungs. Will follow with you. I spoke with the family at the bedside and by phone twice later in the evening 06/21. History of Present Illness History of Present Illness Consult date: 06/21/24 Requesting physician: Arabella Gamino MD Chief complaint: IZAIAH, Weakness, Pneumonia Narrative: Patient was seen June 21, 2024 at 17:15, Room 250; , daughter and son-in-law are at the bedside; they assist with a history says that her hemoglobin was lower this week than ever. NEW : Syeda Marks is a 73 plfa6oug female with breast cancer met to bone, anemia, chronic diarrhea due to chemo. She was admitted with dehydration and pneumonia seen on CXR 06/16. She has had metastatic breast cancer, initially diagnosed in 2018. She is a never smoker and has never had any lung problems. She developed pneumonia about 2 or 3 weeks ago, took Levaquin as an outpatient but this did not seem to really help. She was admitted here, had an abnormal chest CT and now has increased respiratory rate and shortness of breath. When she walks to the bathroom it takes her 15 minutes to recover. She is tachycardic and cannot take deep breaths. In addition to cough with sputum and shortness of breath, she is week, has not eaten normally for a month and has lost weight. Lowest H/H - 6.9/21.3% on June 20. Arterial blood gas today on room air showed pH 7.509, pCO2 16.6, pO2 60.8 saturation 94% She is breathing rapidly to improve her oxygenation, has a normal saturation but she is alkalotic The nurse started 2 L /min and gave her a Xanax. DATA * 06/18/[address]; Mild interval progression in peripheral predominant reticular and patchy airspace opacities in both lungs which most likely infectious/inflammatory in etiology although differential would include less likely metastatic disease. 2. Diffuse patchy sclerosis of the bones consistent with metastatic disease with no change in chronic T9, T12 and L1 compression fractures. * 06/21/ CXR IMPRESSION: Significant interstitial thickening with progression of patchy groundglass opacification with a bilateral upper lobe distribution. Review of Systems 2 Review of Systems: She walks at home, tries to stay active She also says this decrease is any fluid that may accumulate in her ankles All systems reviewed & are unremarkable except as noted in HPI and below PMFSH Past Medical History Medical History (Updated 06/22/24 @ 09:12 by Deidre Hudson MD) Chemotherapy induced diarrhea Breast cancer metastasized to bone History of breast cancer Diagnosed in 2019 status post right-sided lumpectomy and sentinel lymph node biopsy in 2019. Found to have recurrent metastatic disease and was started on chemotherapy in 2023. Anemia GERD (gastroesophageal reflux disease) HTN (hypertension) Surgical History Surgical History History of lumpectomy Hx laparoscopic cholecystectomy 12/30/[address] Haro Hx of appendectomy Open appendectomy Family History Family History Mother Patient's mother is Father Cerebrovascular accident Social History Social History Social History: Surrogate medical decision maker: Moe Marks, spouse. Code status: full code. Smoking status: Never smoker Second hand tobacco smoke exposure: No Alcohol intake: never Drinks per week: 1 Substance use: never Substance use type: does not use Do You Feel Safe in your Home?: Yes Lack of Transportation: No Lack of Food: Never True Current Housing: I Have Housing Concerned About Future Housing: No Difficulty Paying Gas/Electric Bills: No Difficulty Paying for Meds: No Currently Unemployed: No Education: Associate Degree Difficulty w/ Childcare or Family Care: No Living arrangements: with family Additional living arrangements comments: Lives with in [place]. They have 1 child. Spiritual care concerns: No Meds Home Medications and Allergies Home Medications ?Medication ?Instructions ?Recorded ?Confirmed ?Type ascorbic acid (vitamin C) 500 mg 500 mg PO BID 12/17/18 06/18/24 History tablet famotidine 20 mg tablet 20 mg PO DAILY 12/17/18 06/18/24 History multivitamin 1 tablet PO DAILY 12/17/18 06/18/24 History acetaminophen 500 mg capsule 1,000 mg PO Q8H PRN Pain 10/07/21 06/18/24 History ferrous sulfate 325 mg (65 mg 325 mg PO BID 10/07/21 06/18/24 History iron) tablet vitamin B12 1 mg-folic acid 0.8 mg 1,000 tablet PO DAILY 07/23/23 06/18/24 History tablet diphenoxylate-atropine 2.5 1 tablet PO PRN PRN Diarrhea 12/25/23 06/18/24 History mg-0.025 mg tablet lisinopril 20 mg tablet 20 mg PO DAILY 12/25/23 06/18/24 History ondansetron 8 mg disintegrating 8 mg PO Q8H PRN Nausea 12/25/23 06/18/24 History tablet loperamide 2 mg capsule 2 mg PO PRN PRN Diarrhea 12/26/23 06/18/24 History megestrol 400 mg/10 mL (40 mg/mL) 400 mg PO DAILY 05/31/24 06/18/24 History oral suspension levofloxacin 500 mg tablet 500 mg PO DAILY 06/18/24 06/18/24 History prochlorperazine maleate 10 mg 10 mg PO Q8H PRN nausea and 06/18/24 06/18/24 History tablet vomiting Allergies Allergy/AdvReac Type Severity Reaction Status Date / Time amoxicillin (From Augmentin) AdvReac Nausea and Verified 06/18/24 14:52 Vomiting clavulanic acid (From AdvReac Nausea and Verified 06/18/24 14:52 Augmentin) Vomiting Vital Signs Vital Signs - 24 hr 06/19/24 20:00 06/19/24 20:00 06/19/24 22:00 Temperature 37.3 C Pulse Rate 105 H 112 H Respiratory Rate 18 Blood Pressure 116/53 L Pulse Oximetry 99 Oxygen Delivery Room Air 06/20/24 00:00 06/20/24 04:00 06/20/24 06:00 Temperature 36.9 C Pulse Rate 72 99 129 H Respiratory Rate 18 Blood Pressure 142/63 H Pulse Oximetry 95 Oxygen Delivery 06/20/24 08:00 06/20/24 09:05 06/20/24 09:30 Temperature Pulse Rate 117 H Respiratory Rate Blood Pressure Pulse Oximetry 95 Oxygen Delivery Room Air Room Air 06/20/24 12:00 06/20/24 13:36 06/20/24 16:00 Temperature 37.1 C Pulse Rate 118 H 109 H 113 H Respiratory Rate 17 Blood Pressure 133/72 Pulse Oximetry 95 Oxygen Delivery Exam 2 Narrative: GEN: Alert, oriented, increased respiratory rate, wearing oxygen 1 L minute saturation 97% Family tells me oxygen was just added within the last hour. HEENT: pupils are equal, EOMI, symmetrical face; oral membranes partial moist, Mallampati II airway, NECK: Trachea is midline CHEST: Equal air entry, symmetric excursion, decreased breath sounds few crackles in the bases CV: Tachycardic regular S1S2 no m/g/r ABD : (+) bowel sounds Extremities : no clubbing, cyanosis, edema; skin is warm and dry, good capillary refill PSYCH: normal thought and speech, gait is not tested. Results Laboratory Findings 06/22/24 05:05 06/22/24 05:05 ABG, PT/INR, D-dimer: PT/INR, D-dimer PT 18.9 Seconds (11.1-14.7) H 06/18/24 10:05 INR 1.6 06/18/24 10:05 Abnormal lab findings: Abnormal Labs 06/18/24 06/19/24 06/19/24 10:05 05:46 05:51 WBC 4.3 L 3.2 L RBC 2.56 L 2.33 L Hgb 8.7 L 8.0 L Hct 26.8 L 23.9 L MCV 104.7 H 102.6 H MCH 34.3 H RDW 17.4 H 17.3 H Plt Count Immature Gran % (Auto) 5.5 H 6.6 H Lymph % (Auto) 12.2 L [place] % (Auto) 17.1 H 16.0 H Lymph # (Auto) 0.53 L 0.60 L [place] # (Auto) 0.7 H Abs Immat Gran (auto) 0.24 H 0.21 H Absolute Nucleated RBC 0.020 H 0.030 H Nucleated RBC % 0.5 H 0.9 H PT 18.9 H APTT 55.7 H Chloride 112 H 116 H Carbon Dioxide 8 L 10 L Anion Gap 18 H 14 H BUN 72 H D 51 H D Creatinine 2.86 H 1.95 H Estimated GFR 16 L 25 L Glucose 111 H Calcium 10.9 H 10.4 H Magnesium 1.3 L AST 103 H Alkaline Phosphatase 187 H NT-Pro-B Natriuret Pep 249 H 06/20/24 06/20/24 06/20/24 05:58 06:05 09:48 WBC 3.1 L RBC 2.04 L Hgb 6.9 L* 7.3 L Hct 21.3 L 22.3 L MCV 104.4 H MCH RDW 17.5 H Plt Count 136 L Immature Gran % (Auto) Lymph % (Auto) [place] % (Auto) Lymph # (Auto) [place] # (Auto) Abs Immat Gran (auto) Absolute Nucleated RBC Nucleated RBC % PT APTT Chloride 121 H Carbon Dioxide 13 L Anion Gap BUN 31 H D Creatinine 1.42 H Estimated GFR 36 L Glucose Calcium Magnesium 1.3 L AST Alkaline Phosphatase NT-Pro-B Natriuret Pep
[2024-06-20] MEDS: ACETAMINOPHEN 325 MG TABLET 650 MG PO (17:25)
--- NOTE | 2024-06-20 18:48 | WPDONCPN ---
Progress Note: A&P Assessment and Plan (1) Breast cancer metastasized to bone: Code(s): C50.919 - Malignant neoplasm of unspecified site of unspecified female breast; C79.51 - Secondary malignant neoplasm of bone Status: Acute Assessment and Plan: Patient has active metastatic breast cancer and is getting treatment with Dr. Rivera with IV chemotherapy Enhertu (Fam Trastuzumab deruxtecan). Patient was first diagnosed with Right breast cancer ER/GA Positive and Her2 positive disease 09/21/2018. She underwent neoadjuvant chemotherapy with TCH-P and then Lumpectomy with sentinel node biopsy on 03/31/19. She then underwent radiation therapy and 1 year of Herceptin which she finished 01/2020. Patient then was found to have metastatic breast cancer to bones on PET/CT performed 10/01/21 after observation of increasing CA 15-3. Patient then started first line chemotherapy for metastatic breast cancer with Lapatinib, Letrozole and Herceptin. She had severe diarrhea with Lapatinib and herceptin. Progression of bone mets were noted on Bone scan dne 02/12/23. Patient then started second line agent for metastatic breast cancer with Fam Trastuzumab Deruxtecan (Enhertu) and remains on this chemotherapy. Last CT scan done 05/17/24 showed bilateral pulmonary nodules concerning for infection and bone scan done 05/17/[address] Rivera treated patient with oral levofloxacin for 10 days in April 2024 with no relief. Her levofloxacin prescription was renewed last week when she came to infusion for Procrit injection. Patient is admitted for bilateral pneumonia and acute renal failure secondary to dehydration. She has been started on IV normal saline and IV levofloxacin. Care per hospitalist team. Labs 06/20/24 shows improvement in creatinine. There is concern of fluid overload given patient's dyspnea. IV fluids stopped today at 6:15pm. If dyspnea does not improve, may need another chest imaging to reevaluate. (2) Bone pain of lower leg: Code(s): M89.8X6 - Other specified disorders of bone, lower leg Status: Acute Assessment and Plan: Likely secondary to bone mets. She is on acetaminophen which is not helping. Suggest Tramadol 50mg TID prn for bone pain. She has also been started with gabapentin for restless legs. (3) Macrocytic anemia: Code(s): D53.9 - Nutritional anemia, unspecified Status: Acute Assessment and Plan: Patient with anemia. She has been on MIREYA (Procrit) as outpatient every [address] Rivera's office. I will get the exact dose and order Procrit as inpatient tomorrow. Subjective Date/time seen: 06/20/24 18:48 Interval history: Patient seen at bedside. present. Patient reports more dyspnea when walked to bathroom and to bed. Review of Systems Review of Systems Patient reports weakness, fatigue, dyspnea with decreased appetite and oral intake. Patient also reports anxiety with her metastatic breast cancer and treatment. reports that patient also has lower extremity pain bilaterally (mid thigh down) in the evening. Patient endorses restless legs and urge to move at night. Denies f/c, night sweats. No back pain. No abdominal pain. she has diarrhea (1-2 BM per day) from chemotherapy. Denies falls, syncope, TIA or CVA. No hematochezia or melena. No hematuria. Exam Narrative: Alert and oriented x3, pleasant, ill appearing female in no acute distress HEENT: No scleral icterus, EOMI, no other gross abnormalities CV: Tachycardic. no m/g/r RESP: Lungs are clear to auscultation without wheezing ABD: Soft, NT, ND, BS+ EXT: no edema NEURO: Intact PSYCH: pleasant mood at this time. Objective Data Vital Signs Vital Signs: Vital Signs - 24 hr 06/19/24 20:00 06/19/24 20:00 06/19/24 22:00 Temperature 37.3 C Pulse Rate 105 H 112 H Respiratory Rate 18 Blood Pressure 116/53 L Pulse Oximetry 99 Oxygen Delivery Room Air 06/20/24 00:00 06/20/24 04:00 06/20/24 06:00 Temperature 36.9 C Pulse Rate 72 99 129 H Respiratory Rate 18 Blood Pressure 142/63 H Pulse Oximetry 95 Oxygen Delivery 06/20/24 08:00 06/20/24 09:05 06/20/24 09:30 Temperature Pulse Rate 117 H Respiratory Rate Blood Pressure Pulse Oximetry 95 Oxygen Delivery Room Air Room Air 06/20/24 12:00 06/20/24 13:36 06/20/24 16:00 Temperature 37.1 C Pulse Rate 118 H 109 H 113 H Respiratory Rate 17 Blood Pressure 133/72 Pulse Oximetry 95 Oxygen Delivery Intake/Output Intake/Output: Intake & Output 06/17/24 06/18/24 06/19/24 06/20/24 23:59 23:59 23:59 23:59 Intake Total 1050 4190.8 3534.2 Output Total 50 Balance 1000 4190.8 3534.2 Meds/Results Medications: Active Medications Generic Name Dose Route Start Last Admin Trade Name Freq PRN Reason Stop Dose Admin Acetaminophen 650 mg 06/18/24 15:02 06/20/24 17:25 Acetaminophen 325 Mg Tablet PO 650 mg Q4H PRN Administration Mild Pain (1-3) or Fever Alprazolam 0.25 mg 06/18/24 15:02 06/18/24 15:43 Alprazolam (*Crx) 0.25 Mg Tablet PO 0.25 mg TID PRN Administration Anxiety Ascorbic Acid 500 mg 06/18/24 17:00 06/20/24 17:17 Ascorbic Acid 500 Mg Tablet PO 500 mg BID AMADO Administration Famotidine 20 mg 06/19/24 09:00 06/20/24 09:28 Famotidine 20 Mg Tablet PO 20 mg DAILY AMADO Administration Ferrous Sulfate 325 mg 06/18/24 17:00 06/20/24 17:17 Ferrous Sulfate [address] BY MOUTH 325 mg BID AMADO Administration Gabapentin 200 mg 06/20/24 21:00 Gabapentin 100 Mg Capsule PO HS AMADO Heparin Sodium (Beef Lung) 50 units 06/19/24 09:00 06/20/24 09:29 Heparin Flush 50 Units/5 Ml Syringe IV PUSH 50 units QAM AMADO Administration Heparin Sodium (Beef Lung) 50 units 06/18/24 10:10 Heparin Flush 50 Units/5 Ml Syringe IV PUSH PRN PRN after intermittent infusion Heparin Sodium (Beef Lung) 50 units 06/18/24 10:10 Heparin Flush 50 Units/5 Ml Syringe IV PUSH PRN PRN after blood draws Heparin Sodium (Porcine) 500 units 06/18/24 10:10 Heparin Sodium Lock Flush 500 Units/5 Ml Syringe IV PUSH PRN PRN see comments below Heparin Sodium (Porcine) 5,000 units 06/18/24 21:00 06/20/24 09:29 Heparin Sodium 5,000 Units/Ml Vial SUB-Q 5,000 units Q12HR AMADO Administration Levofloxacin/Dextrose 500 mg in 100 mls @ 66.667 mls/hr 06/20/24 12:00 06/20/24 11:58 Levaquin 500 Mg/D5w 100 Ml IVPB 66.67 mls/hr Q48H AMADO Administration Loperamide HCl 2 mg 06/18/24 19:16 06/20/24 06:52 Loperamide Hcl 2 Mg Capsule PO 2 mg PRN PRN Administration Diarrhea Megestrol Acetate 400 mg 06/19/24 09:00 06/20/24 09:29 Megestrol Acetate (*Chemo) Oral Susp 40 Mg/Ml Syr PO 400 mg DAILY AMADO Administration Multivitamins Therapeutic 1 tablet 06/19/24 09:00 06/20/24 09:28 Multivitamins Therapeutic Tab (*Bkc) PO 1 tablet DAILY AMADO Administration Ondansetron HCl 8 mg 06/18/24 15:07 Ondansetron Hcl Odt 4 Mg Tablet PO Q8H PRN Nausea Prochlorperazine Maleate 10 mg 06/18/24 15:03 Prochlorperazine Maleate 5 Mg Tablet PO Q8H PRN nausea and vomiting Radiology Results: ITS Impressions Chest CT 06/18/24 11:03 IMPRESSION: 1. Mild interval progression in peripheral predominant reticular and patchy airspace opacities in both lungs which most likely infectious/inflammatory in etiology although differential would include less likely metastatic disease. 2. Diffuse patchy sclerosis of the bones consistent with metastatic disease with no change in chronic T9, T12 and L1 compression fractures. Labs Labs: Laboratory Results - last 24 hr 06/20/24 06/20/24 06/20/24 05:58 06:05 09:48 WBC 3.1 L RBC 2.04 L Hgb 6.9 L* 7.3 L Hct 21.3 L 22.3 L MCV 104.4 H MCH 33.8 MCHC 32.4 RDW 17.5 H Plt Count 136 L MPV 9.6 Sodium 142 Potassium 3.7 Chloride 121 H Carbon Dioxide 13 L Anion Gap 8 BUN 31 H D Creatinine 1.42 H Estim Creat Clear Calc 32 Estimated GFR 36 L Glucose 83 Calcium 9.9 Magnesium 1.3 L
[2024-06-20] MEDS: GABAPENTIN 100 MG CAPSULE 200 MG PO (20:29)
[2024-06-21] VITALS (13 sets, daily range): BP systolic 137–145; BP diastolic 72–76; PULSE 100–113; RESP 16–20; TEMP 36.4–37.9; O2SAT 94–98
[2024-06-21 05:27] LABS: Hematocrit 22.4 % (37.0-47.0); Hemoglobin 7.4 g/dL (12.0-15.0); Mean Corpuscular Hemoglobin 34.1 pg (26-34); Mean Corpuscular Volume 103.2 fl (80-100); Mean Platelet Volume 9.9 fl (7.4-10.4); Platelet Count Result 139 k/mm3 (150-375); Red Blood Count 2.17 M/mm3 (4.2-5.4); Red Cell Distribution Width 17.7 % (11.5-14.5); White Blood Count 4.2 K/mm3 (4.5-10.0)
[2024-06-21] MEDS: ALPRAZolam (*CRX) 0.25 MG TABLET PO ×2 (07:00→17:33)
[2024-06-21] MEDS: ACETAMINOPHEN 325 MG TABLET 650 MG PO (07:00)
[2024-06-21 07:57] LABS: Sodium 142 mmol/L (137-145)
[2024-06-21 08:12] LABS: Anion Gap 11 mmol/L (4-12); Blood Urea Nitrogen 21 mg/dL (7-17); Calcium 10.4 mg/dL (8.4-10.2); Carbon Dioxide 12 mmol/L (22-30); Chloride 119 mmol/L (98-107); Estimated CRCL calculation 38 ml/min; Estimated Glomerular Filt Rate 44; Glucose 105 mg/dL (65-110); Magnesium 1.5 mg/dL (1.6-2.3); Potassium 3.5 mmol/L (3.4-5.0)
[2024-06-21] MEDS: ASCORBIC ACID 500 MG TABLET PO ×2 (09:45→17:32)
[2024-06-21] MEDS: FERROUS SULFATE 325 MG TABLET DR BY MOUTH ×2 (09:45→17:32)
[2024-06-21] MEDS: FAMOTIDINE 20 MG TABLET PO (09:45)
[2024-06-21] MEDS: MEGESTROL ACETATE (*CHEMO) ORAL SUSP 40 MG/ML SYR 400 MG PO (09:45)
[2024-06-21] MEDS: MULTIVITAMINS THERAPEUTIC TAB (*BKC) 1 TABLET PO (09:45)
[2024-06-21] MEDS: HEPARIN SODIUM 5,000 UNITS/ML VIAL 5000 UNITS SUB-Q ×2 (09:46→20:15)
[2024-06-21] MEDS: MAGNESIUM SULF 2 GM/WATER 50ML 2 GM/50 ML BAG IVPB (09:46)
[2024-06-21] MEDS: LOPERAMIDE HCL 2 MG CAPSULE PO (10:11)
[2024-06-21] MEDS: guaiFENesin 12 HR 600 MG TABCR PO ×2 (11:59→20:16)
--- NOTE | 2024-06-21 12:09 | P.PNIM_ITS ---
Progress Note: A&P Assessment and Plan (1) Acute on chronic kidney failure: Code(s): N17.9 - Acute kidney failure, unspecified; N18.9 - Chronic kidney disease, unspecified Status: Acute Assessment and Plan: IV fluids hydration Hold lisinopril and nephrotoxic medications BMP in the AM (2) Pneumonia: Code(s): J18.9 - Pneumonia, unspecified organism Status: Acute Assessment and Plan: Versus possible metastases to lungs Pulmonology consulted pending recommendations, available by telephone on Thursday and in house on Thursday Started on Levaquin, per patient was on oral Levaquin IVF for hydration (3) Breast cancer metastasized to bone: Code(s): C50.919 - Malignant neoplasm of unspecified site of unspecified female breast; C79.51 - Secondary malignant neoplasm of bone Status: Acute Assessment and Plan: last treatment about two weeks ago (4) Chemotherapy induced diarrhea: Code(s): K52.1 - Toxic gastroenteritis and colitis; T45.1X5A - Adverse effect of antineoplastic and immunosuppressive drugs, initial encounter Status: Acute Assessment and Plan: Okay for home meds Plan Upon arrival patient was dehydrated, weak and confused, patient has been receiving IVF and stats feeling much better, abd her BUN and Serum Creatine is trending down, patient CT scan of chest is concerning for pneumonia, and being treated with levofloxacin, will follow up on blood C/S, patient is scheduled to have chemo infusion June 21, her oncologist canceled the appointment, patient started she is having rest leg syndrome, started patient on gabapentin, which did help, discussed with her oncologist, patient has extensive bone metastatic from her breast cancer, the oncologist will order epogen for the patient, will stop IVF as patient kidney function is improving and will continue IV abx, will chest x-ray, will have PT/OT evaluate and further recommendation to follow. Subjective Date/time seen: 06/21/24 12:09 Interval history: weakness Narrative: 18-year-old female past medical history of currently being treated for breast cancer that metastasized to bone, anemia, hypertension chronic diarrhea secondary to chemotherapy presents the hospital with weakness. She was started on oral antibiotics about a week with no improvement in her breathing. She complains of tremors and anxiety but not rigors or chills. she said that her cough has improved but her weakness and shortness of breath have not. Shows leukopenia at 4.3, hemoglobin of 8.7 baseline being around 10, chloride of 112, carbon dioxide of 8, INR gap 18, BUN of 72, creatinine of 2.86 with baseline being around 1.18, AST 103 alkaline phos 187, proBNP 249, UA shows no acute process. CT of the chest shows Mild interval progression in peripheral predominant reticular and patchy airspace opacities in both lungs which most likely infectious/inflammatory in etiology although differential would include less likely metastatic disease. Her las CT chest was on 12/08/23 which showed There is no evidence of any significant mediastinal, hilar or axillary lymphadenopathy. The mediastinal soft tissues appear normal. Stable 2 mm right upper lobe pulmonary nodule/granuloma. There is linear right basilar scarring or atelectasis. There is linear left basilar scarring or atelectasis. Calcified left lower lobe granulomas are present. Upon arrival patient was dehydrated, weak and confused, patient has been receiving IVF and stats feeling much better, abd her BUN and Serum Creatine is trending down, patient CT scan of chest is concerning for pneumonia, and being treated with levofloxacin, will follow up on blood C/S, patient is scheduled to have chemo infusion [place] June 21, her oncologist canceled the appointment, patient started she is having rest leg syndrome, started patient on gabapentin, which did help, discussed with her oncologist, patient has extensive bone metastatic from her breast cancer, the oncologist will order epogen for the patient, will stop IVF as patient kidney function is improving and will continue IV abx, will chest x-ray, will have PT/OT evaluate and further recommendation to follow. Review of Systems Review of Systems: 12 systems were reviewed and are negativ e except for as per HPI. Exam Narrative: Patient is comfortable, NAD HEENT: eyes are clear and none icteric LUNGS:CTA HEART: RR S1S2 ABD: BS+, Soft and nontender Lower extremities: no edema SKIN: nonjaundiced Neuro: grossly intact. Objective Data Vital Signs Vital Signs: Vital Signs - 24 hr 06/20/24 13:36 06/20/24 16:00 06/20/24 19:59 Temperature 37.1 C Pulse Rate 109 H 113 H 113 H Respiratory Rate 17 17 Blood Pressure 133/72 Pulse Oximetry 95 95 Oxygen Delivery Room Air 06/20/24 20:00 06/20/24 21:09 06/21/24 00:00 Temperature 36.7 C Pulse Rate 111 H 109 H 103 H Respiratory Rate 16 Blood Pressure 134/74 Pulse Oximetry 97 Oxygen Delivery 06/21/24 04:00 06/21/24 05:28 06/21/24 07:00 Temperature 36.7 C 37.9 C H Pulse Rate 113 H 112 H Respiratory Rate 16 Blood Pressure 137/72 Pulse Oximetry 94 Oxygen Delivery 06/21/24 08:00 06/21/24 09:45 06/21/24 09:46 Temperature 37.0 C Pulse Rate 112 H Respiratory Rate Blood Pressure Pulse Oximetry Oxygen Delivery Room Air Intake/Output Intake/Output: Intake & Output 06/18/24 06/19/24 06/20/24 06/21/24 23:59 23:59 23:59 23:59 Intake Total 1050 4190.8 3684.2 318 Output Total 50 Balance 1000 4190.8 3684.2 318 Meds/Results Medications: Active Medications Generic Name Dose Route Start Last Admin Trade Name Freq PRN Reason Stop Dose Admin Acetaminophen 650 mg 06/18/24 15:02 06/21/24 07:00 Acetaminophen 325 Mg Tablet PO 650 mg Q4H PRN Administration Mild Pain (1-3) or Fever Alprazolam 0.25 mg 06/18/24 15:02 06/21/24 07:00 Alprazolam (*Crx) 0.25 Mg Tablet PO 0.25 mg TID PRN Administration Anxiety Ascorbic Acid 500 mg 06/18/24 17:00 06/21/24 09:45 Ascorbic Acid 500 Mg Tablet PO 500 mg BID AMADO Administration Benzocaine 1 lozenge 06/21/24 11:49 Benzocaine/Menthol (*Bkc) 18 Ea Lozenge PO PRN PRN Sore Throat Benzonatate 200 mg 06/21/24 11:48 Benzonatate 100 Mg Capsule PO Q8HR PRN Cough Famotidine 20 mg 06/19/24 09:00 06/21/24 09:45 Famotidine 20 Mg Tablet PO 20 mg DAILY AMADO Administration Ferrous Sulfate 325 mg 06/18/24 17:00 06/21/24 09:45 Ferrous Sulfate [address] BY MOUTH 325 mg BID AMADO Administration Gabapentin 200 mg 06/20/24 21:00 06/20/24 20:29 Gabapentin 100 Mg Capsule PO 200 mg HS AMADO Administration Guaifenesin 600 mg 06/21/24 11:50 06/21/24 11:59 Guaifenesin 12 Hr 600 Mg Tabcr PO 600 mg Q12HR AMADO Administration Heparin Sodium (Beef Lung) 50 units 06/19/24 09:00 06/21/24 09:46 Heparin Flush 50 Units/5 Ml Syringe IV PUSH 50 units QAM AMADO Administration Heparin Sodium (Beef Lung) 50 units 06/18/24 10:10 Heparin Flush 50 Units/5 Ml Syringe IV PUSH PRN PRN after intermittent infusion Heparin Sodium (Beef Lung) 50 units 06/18/24 10:10 Heparin Flush 50 Units/5 Ml Syringe IV PUSH PRN PRN after blood draws Heparin Sodium (Porcine) 500 units 06/18/24 10:10 Heparin Sodium Lock Flush 500 Units/5 Ml Syringe IV PUSH PRN PRN see comments below Heparin Sodium (Porcine) 5,000 units 06/18/24 21:00 06/21/24 09:46 Heparin Sodium 5,000 Units/Ml Vial SUB-Q 5,000 units Q12HR AMADO Administration Levofloxacin/Dextrose 500 mg in 100 mls @ 66.667 mls/hr 06/20/24 12:00 06/20/24 11:58 Levaquin 500 Mg/D5w 100 Ml IVPB 66.67 mls/hr Q48H AMADO Administration Loperamide HCl 2 mg 06/18/24 19:16 06/21/24 10:11 Loperamide Hcl 2 Mg Capsule PO 2 mg PRN PRN Administration Diarrhea Megestrol Acetate 400 mg 06/19/24 09:00 06/21/24 09:45 Megestrol Acetate (*Chemo) Oral Susp 40 Mg/Ml Syr PO 400 mg DAILY AMADO Administration Multivitamins Therapeutic 1 tablet 06/19/24 09:00 06/21/24 09:45 Multivitamins Therapeutic Tab (*Bkc) PO 1 tablet DAILY AMADO Administration Ondansetron HCl 8 mg 06/18/24 15:07 Ondansetron Hcl Odt 4 Mg Tablet PO Q8H PRN Nausea Prochlorperazine Maleate 10 mg 06/18/24 15:03 Prochlorperazine Maleate 5 Mg Tablet PO Q8H PRN nausea and vomiting Radiology Results: ITS Impressions Chest CT 06/18/24 11:03 IMPRESSION: 1. Mild interval progression in peripheral predominant reticular and patchy airspace opacities in both lungs which most likely infectious/inflammatory in etiology although differential would include less likely metastatic disease. 2. Diffuse patchy sclerosis of the bones consistent with metastatic disease with no change in chronic T9, T12 and L1 compression fractures. Labs Labs: Laboratory Results - last 24 hr 06/21/24 06/21/24 05:13 05:13 WBC 4.2 L RBC 2.17 L Hgb 7.4 L Hct 22.4 L MCV 103.2 H MCH 34.1 H MCHC 33.0 RDW 17.7 H Plt Count 139 L MPV 9.9 Sodium 142 Potassium 3.5 Chloride 119 H Carbon Dioxide 12 L Anion Gap 11 BUN 21 H D Creatinine 1.21 H Estim Creat Clear Calc 38 Estimated GFR 44 L Glucose 105 Calcium 10.4 H Magnesium 1.5 L Cancelled Quality VTE Prophylaxis VTE prophylaxis: mechanical ordered and pharmacologic ordered
[2024-06-21] MEDS: EPOETIN ALFA 20,000 UNITS/ML VIAL 20000 UNITS SUB-Q (13:48)
[2024-06-21] MEDS: BENZONATATE 100 MG CAPSULE 200 MG PO (13:57)
[2024-06-21 17:14] LABS: Alveolar/Arterial O2 Gradient 69.1 mmHg; Fractional Inspired Oxygen 21 %; HCO3 ABG 12.9 mEq/l (22.0-26.0); Oxygen Content ABG 13.7 %vol (16.0-22.0); Oxygen Saturation ABG 94.1 % (95.0-100.0); Oxyhemoglobin 91.7 % THb (90.0-100.0); PO2 ABG 60.8 mmHg (80.0-100.0); Total Hemoglobin 10.6 g/dL (12.0-18.0)
[2024-06-21 17:15] LABS: Device ROOM AIR; Modified Allen's Test Pass; PCO2 ABG 16.6 mmHg (35.0-45.0); Site Drawn LEFT RADIAL; pH ABG 7.509 (7.350-7.450)
--- NOTE | 2024-06-21 19:11 | WPDONCPN ---
Progress Note: A&P Assessment and Plan (1) Breast cancer metastasized to bone: Code(s): C50.919 - Malignant neoplasm of unspecified site of unspecified female breast; C79.51 - Secondary malignant neoplasm of bone Status: Acute Assessment and Plan: Patient has active metastatic breast cancer and is getting treatment with Dr. Rivera with IV chemotherapy Enhertu (Fam Trastuzumab deruxtecan). Patient was first diagnosed with Right breast cancer ER/RI Positive and Her2 positive disease 09/21/2018. She underwent neoadjuvant chemotherapy with TCH-P and then Lumpectomy with sentinel node biopsy on 03/31/19. She then underwent radiation therapy and 1 year of Herceptin which she finished 01/2020. Patient then was found to have metastatic breast cancer to bones on PET/CT performed 10/01/21 after observation of increasing CA 15-3. Patient then started first line chemotherapy for metastatic breast cancer with Lapatinib, Letrozole and Herceptin. She had severe diarrhea with Lapatinib and herceptin. Progression of bone mets were noted on Bone scan dne 02/12/23. Patient then started second line agent for metastatic breast cancer with Fam Trastuzumab Deruxtecan (Enhertu) and remains on this chemotherapy. Last CT scan done 05/17/24 showed bilateral pulmonary nodules concerning for infection and bone scan done 05/17/[address] Rivera treated patient with oral levofloxacin for 10 days in April 2024 with no relief. Her levofloxacin prescription was renewed last week when she came to infusion for Procrit injection. Patient is admitted for bilateral pneumonia and acute renal failure secondary to dehydration. She has been started on IV normal saline and IV levofloxacin. Acute renal failure has improved with creatinine 1.2 today 06/21/2024 However patient has worsening dyspnea and a chest x-ray performed today showed significant interstitial thickening with progression of patchy groundglass opacification with a bilateral upper lobe distribution. I believe pulmonary team will be involved now per patient there may be a bronchoscopy in planning. (2) Bone pain of lower leg: Code(s): M89.8X6 - Other specified disorders of bone, lower leg Status: Acute Assessment and Plan: Likely secondary to bone mets. She is on acetaminophen which is not helping. Suggest Tramadol 50mg TID prn for bone pain. She has also been started with gabapentin for restless legs. (3) Macrocytic anemia: Code(s): D53.9 - Nutritional anemia, unspecified Status: Acute Assessment and Plan: Patient with anemia. She has been on MIREYA (Procrit) as outpatient every [address] Rivera's office. I will get the exact dose and order Procrit as inpatient tomorrow. Subjective Date/time seen: 06/21/24 19:11 Interval history: Patient seen at bedside. She is unable to speak in long sentences due to dyspnea. Review of Systems Review of Systems Patient is progressively dyspneic. A CXR done today shows worsening infiltrates/opacities. She has no appetite and is fatigued. No chest pain. Progressive cough. Denies abdominal pain, hematochezia, melena. No hematuria no dysuria. Exam Narrative: Alert and oriented x3, pleasant, ill appearing female, in mild distress or dyspnea HEENT: No scleral icterus, EOMI, no other gross abnormalities CV: Tachycardic. no m/g/r RESP: Crackles in all lung orozco ABD: Soft, NT, ND, BS+ EXT: no edema NEURO: Intact PSYCH: pleasant mood at this time. Objective Data Vital Signs Vital Signs: Vital Signs - 24 hr 06/20/24 19:59 06/20/24 20:00 06/20/24 21:09 Temperature 36.7 C Pulse Rate 113 H 111 H 109 H Respiratory Rate 17 16 Blood Pressure 134/74 Pulse Oximetry 95 97 Oxygen Delivery Room Air Oxygen Flow Rate Fraction of Inspired Oxygen 06/21/24 00:00 06/21/24 04:00 06/21/24 05:28 Temperature 36.7 C Pulse Rate 103 H 113 H 112 H Respiratory Rate 16 Blood Pressure 137/72 Pulse Oximetry 94 Oxygen Delivery Oxygen Flow Rate Fraction of Inspired Oxygen 06/21/24 07:00 06/21/24 08:00 06/21/24 09:45 Temperature 37.9 C H Pulse Rate 112 H Respiratory Rate Blood Pressure Pulse Oximetry Oxygen Delivery Room Air Oxygen Flow Rate Fraction of Inspired Oxygen 06/21/24 09:46 06/21/24 12:00 06/21/24 14:00 Temperature 37.0 C 36.4 C L Pulse Rate 108 H 100 Respiratory Rate 18 Blood Pressure 140/76 Pulse Oximetry 97 Oxygen Delivery Oxygen Flow Rate Fraction of Inspired Oxygen 06/21/24 15:57 06/21/24 16:00 06/21/24 18:40 Temperature Pulse Rate 100 101 H Respiratory Rate 18 Blood Pressure Pulse Oximetry 97 97 Oxygen Delivery Room Air Venturi Mask Oxygen Flow Rate 9 Fraction of Inspired Oxygen 35 Intake/Output Intake/Output: Intake & Output 06/18/24 06/19/24 06/20/24 06/21/24 23:59 23:59 23:59 23:59 Intake Total 1050 4190.8 3684.2 618 Output Total 50 Balance 1000 4190.8 3684.2 618 Meds/Results Medications: Active Medications Generic Name Dose Route Start Last Admin Trade Name Freq PRN Reason Stop Dose Admin Acetaminophen 650 mg 06/18/24 15:02 06/21/24 07:00 Acetaminophen 325 Mg Tablet PO 650 mg Q4H PRN Administration Mild Pain (1-3) or Fever Alprazolam 0.25 mg 06/18/24 15:02 06/21/24 17:33 Alprazolam (*Crx) 0.25 Mg Tablet PO 0.25 mg TID PRN Administration Anxiety Ascorbic Acid 500 mg 06/18/24 17:00 06/21/24 17:32 Ascorbic Acid 500 Mg Tablet PO 500 mg BID AMADO Administration Benzocaine 1 lozenge 06/21/24 11:49 Benzocaine/Menthol (*Bkc) 18 Ea Lozenge PO PRN PRN Sore Throat Benzonatate 200 mg 06/21/24 11:48 06/21/24 13:57 Benzonatate 100 Mg Capsule PO 200 mg Q8HR PRN Administration Cough Famotidine 20 mg 06/19/24 09:00 06/21/24 09:45 Famotidine 20 Mg Tablet PO 20 mg DAILY AMADO Administration Ferrous Sulfate 325 mg 06/18/24 17:00 06/21/24 17:32 Ferrous Sulfate [address] BY MOUTH 325 mg BID AMADO Administration Gabapentin 200 mg 06/20/24 21:00 06/20/24 20:29 Gabapentin 100 Mg Capsule PO 200 mg HS AMADO Administration Guaifenesin 600 mg 06/21/24 11:50 06/21/24 11:59 Guaifenesin 12 Hr 600 Mg Tabcr PO 600 mg Q12HR AMADO Administration Heparin Sodium (Beef Lung) 50 units 06/19/24 09:00 06/21/24 09:46 Heparin Flush 50 Units/5 Ml Syringe IV PUSH 50 units QAM AMADO Administration Heparin Sodium (Beef Lung) 50 units 06/18/24 10:10 Heparin Flush 50 Units/5 Ml Syringe IV PUSH PRN PRN after intermittent infusion Heparin Sodium (Beef Lung) 50 units 06/18/24 10:10 Heparin Flush 50 Units/5 Ml Syringe IV PUSH PRN PRN after blood draws Heparin Sodium (Porcine) 500 units 06/18/24 10:10 Heparin Sodium Lock Flush 500 Units/5 Ml Syringe IV PUSH PRN PRN see comments below Heparin Sodium (Porcine) 5,000 units 06/18/24 21:00 06/21/24 09:46 Heparin Sodium 5,000 Units/Ml Vial SUB-Q 5,000 units Q12HR AMADO Administration Levofloxacin/Dextrose 500 mg in 100 mls @ 66.667 mls/hr 06/20/24 12:00 06/20/24 11:58 Levaquin 500 Mg/D5w 100 Ml IVPB 66.67 mls/hr Q48H AMADO Administration Loperamide HCl 2 mg 06/18/24 19:16 06/21/24 10:11 Loperamide Hcl 2 Mg Capsule PO 2 mg PRN PRN Administration Diarrhea Megestrol Acetate 400 mg 06/19/24 09:00 06/21/24 09:45 Megestrol Acetate (*Chemo) Oral Susp 40 Mg/Ml Syr PO 400 mg DAILY AMADO Administration Multivitamins Therapeutic 1 tablet 06/19/24 09:00 06/21/24 09:45 Multivitamins Therapeutic Tab (*Bkc) PO 1 tablet DAILY AMADO Administration Ondansetron HCl 8 mg 06/18/24 15:07 Ondansetron Hcl Odt 4 Mg Tablet PO Q8H PRN Nausea Prochlorperazine Maleate 10 mg 06/18/24 15:03 Prochlorperazine Maleate 5 Mg Tablet PO Q8H PRN nausea and vomiting Radiology Results: ITS Impressions Chest CT 06/18/24 11:03 IMPRESSION: 1. Mild interval progression in peripheral predominant reticular and patchy airspace opacities in both lungs which most likely infectious/inflammatory in etiology although differential would include less likely metastatic disease. 2. Diffuse patchy sclerosis of the bones consistent with metastatic disease with no change in chronic T9, T12 and L1 compression fractures. Chest X-Ray 06/21/24 15:56 IMPRESSION: Significant interstitial thickening with progression of patchy groundglass opacification with a bilateral upper lobe distribution. Labs Labs: Laboratory Results - last 24 hr 06/21/24 06/21/24 06/21/24 05:13 05:13 17:10 WBC 4.2 L RBC 2.17 L Hgb 7.4 L Hct 22.4 L MCV 103.2 H MCH 34.1 H MCHC 33.0 RDW 17.7 H Plt Count 139 L MPV 9.9 Puncture Site Left radial ABG pH 7.509 H* ABG pCO2 16.6 L* ABG pO2 60.8 L ABG PO2/FiO2 Ratio 2.90 ABG HCO3 12.9 L ABG O2 Saturation 94.1 L ABG O2 Content 13.7 L ABG Base Excess -8.0 A-a Gradient 69.1 Oxyhemoglobin 91.7 Total Hemoglobin 10.6 L O2 Delivery Device Room air O2 Liters/Min Not Reportable FiO2 21 Sodium 142 Potassium 3.5 Chloride 119 H Carbon Dioxide 12 L Anion Gap 11 BUN 21 H D Creatinine 1.21 H Estim Creat Clear Calc 38 Estimated GFR 44 L Glucose 105 Calcium 10.4 H Magnesium 1.5 L Cancelled
[2024-06-21] MEDS: GABAPENTIN 100 MG CAPSULE 200 MG PO (20:16)
[2024-06-22] VITALS (11 sets, daily range): BP systolic 131–145; BP diastolic 76–83; PULSE 105–118; RESP 18–28; TEMP 36.4–37.1; O2SAT 88–98
--- NOTE | 2024-06-22 01:51 | PC.NURSE ---
order for cta chest with PE protocol noted. consent and copy of power port card placed on chart and attempted to call [employer] to verify that port and card connected. company does not take calls until 8am. charge nurse, rachel and warehouse helper, wayne were unable to obtain peripheral iv access per medical technologist microbiology's request. And midnight medical technologist microbiology did not feel comfortable using power port at this time. so scan is delayed till morning.
[2024-06-22] MEDS: ACETAMINOPHEN 325 MG TABLET 650 MG PO ×2 (04:29→15:57)
[2024-06-22] MEDS: ALPRAZolam (*CRX) 0.25 MG TABLET PO (04:29)
[2024-06-22 05:21] LABS: Basophils Percent Auto 0.8 % (0.2-1.2); Eosinophils Percent Auto 0.8 % (0-4.4); Hemoglobin 7.3 g/dL (12.0-15.0); Immature Granulocyte Absolute 0.56 K/mm3 (0.00-0.031); Immature Granulocyte Percent A 11.4 % (0-0.5); Lymphocytes Percent Auto 14.3 % (18.3-44.2); Mean Corpuscular HGB Conc 33.2 g/dl (32-36); Mean Corpuscular Hemoglobin 33.8 pg (26-34); Mean Corpuscular Volume 101.9 fl (80-100); Mean Platelet Volume 9.3 fl (7.4-10.4); Monocytes Absolute Auto 0.8 K/mm3 (0.1-0.6); Monocytes Percent Auto 17.1 % (2.6-8.5); Neutrophils Absolute Auto 2.7 K/mm3 (1.3-6.7); Neutrophils Percent Auto 55.6 % (45.5-73.1); Nucleated Red Blood Cells Perc 2.6 % (0.0-0.2); Platelet Count Result 129 k/mm3 (150-375); Red Blood Count 2.16 M/mm3 (4.2-5.4); White Blood Count 4.9 K/mm3 (4.5-10.0)
[2024-06-22 05:32] LABS: INR 1.6
[2024-06-22 05:33] LABS: Anion Gap 11 mmol/L (4-12); Blood Urea Nitrogen 19 mg/dL (7-17); Calcium 10.1 mg/dL (8.4-10.2); Carbon Dioxide 12 mmol/L (22-30); Chloride 118 mmol/L (98-107); Estimated CRCL calculation 41 ml/min; Estimated Glomerular Filt Rate 48; Glucose 88 mg/dL (65-110); Partial Thromboplastin Time 66.1 Seconds (22.3-36.8); Potassium 3.2 mmol/L (3.4-5.0); Sodium 141 mmol/L (137-145)
[2024-06-22 07:08] LABS: Anisocytosis 1+; Platelet Estimate Slightly Decreased (Adequate)
[2024-06-22 07:09] LABS: Ovalocytes 1+; Schistocytes None Seen; Tear Drop Cells 1+
[2024-06-22] MEDS: guaiFENesin 12 HR 600 MG TABCR PO (08:44)
[2024-06-22] MEDS: FERROUS SULFATE 325 MG TABLET DR BY MOUTH ×2 (08:45→16:53)
[2024-06-22] MEDS: FAMOTIDINE 20 MG TABLET PO (08:45)
[2024-06-22] MEDS: MULTIVITAMINS THERAPEUTIC TAB (*BKC) 1 TABLET PO (08:47)
[2024-06-22] MEDS: ASCORBIC ACID 500 MG TABLET PO (08:47)
[2024-06-22] MEDS: ENOXAPARIN 80 MG/0.8 ML SYRINGE 75 MG SUB-Q (08:56)
[2024-06-22] MEDS: POTASSIUM CHLORIDE 20 MEQ ER TABLET 40 MEQ PO (09:04)
--- NOTE | 2024-06-22 09:14 | PM.PNPUL ---
Progress Note: A&P Assessment and Plan (1) Pneumonia: Code(s): J18.9 - Pneumonia, unspecified organism Status: Acute Assessment and Plan: Diagnosed with pneumonia several weeks prior to admission, failed outpatient Levaquin. 06/21 CXR -progression of infiltrates compared to the chest CT 06/18 Mild interval progression in peripheral predominant reticular and patchy airspace opacities in both lungs which most likely infectious/inflammatory in etiology although differential would include less likely metastatic disease. 06/22 CTA - much worse infiltrates, no PE; antibiotics expanded to include vancomycin and Zosyn in addition to Levaquin. (2) Acute hypoxemic respiratory failure: Code(s): J96.01 - Acute respiratory failure with hypoxia Status: Acute Assessment and Plan: Saturation was misleading, looked to be 94 and above on room air but this was due to a tachypnea, respiratory rate was in the mid 20s, and her pCO2 was in the teens. 06/21/24 7.509, pCO2 16.6, pO2 60.8 saturation 94% Room air Today sat 88% on RA, dropping, she cannot compensate. (3) Acute respiratory alkalosis: Code(s): E87.3 - Alkalosis Status: Acute Assessment and Plan: Respiratory rate now 28 saturation 88% on room air at 11:15 a.m., patient needs to keep the oxygen on, (4) Breast cancer metastasized to bone: Code(s): C50.919 - Malignant neoplasm of unspecified site of unspecified female breast; C79.51 - Secondary malignant neoplasm of bone Status: Acute Assessment and Plan: Original diagnosis 2019, now has metastases to the bone, may have breast mets Plan plan: Oxygen; she has increased O2 deficit, was not easily seen with her increased respiratory rate but now sat 88% on room air because she will keep the mask on. SHe is becoming confused, taking of O2. Does not need full dose Lovenox, CTA and lower extremity Dopplers are negative. Sputum studies, procalcitonin, expand antibiotic coverage with vancomycin and Zosyn in addition to Levaquin. She has full code, will need intubation if she does not respond to current treatment. Call the transfer line [phone] at [facility], spoke with a nurse coordinator Molly, gave most recent vital signs temperature 36.6? pulse 112 respirations 28 saturation 88% on room air because she is taking her mask off, blood pressure 145/76 She will contact the physician to review for transfer to [facility] for higher level of services, metastatic breast cancer with worsening bilateral pneumonia, possible breast cancer to lungs, electrolyte abnormalities K+3.2 replaced with 40 meq KCL this am. I spoke with oncologist covering for Dr Rivera, Dr Virk, she agreed with transfer for higher level of care for this patient. I spoke with the patient at the bedside and then her a additionally, patient is saying she was hesitant to be transferred however she is worsening and is not appropriate for what we can offer her at this hospital. I have been in contact with Melanie Gamboa hospitalist. I have communicated with Luciana Anne, our Infectious Diseases head athletic trainer/strength coach. I spoke with RN and manager of case. Subjective Date/time seen: 06/22/24 09:14 Interval history: 06/22/24 follow up visit; Patient had her CTA and LE Dopplers this morning. No evidence of pulmonary embolus. She has increased infiltrates throughout both lungs, consistent with pulmonary edema versus pneumonia. She has no fever, sputum is scant. She is sitting up in bed, O2 mask off. She feels about the same as yesterday, coughing with small amounts of sputum. She does not feel that O2 is helping her. She is still short of breath. 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 She was admitted with dehydration and pneumonia seen on CXR 06/16. She has had metastatic breast cancer, initially diagnosed in 2019. She is a never smoker and has never had any lung problems. She developed pneumonia about 2 or 3 weeks ago, took Levaquin as an outpatient but this did not seem to really help. She was admitted here, had an abnormal chest CT and now has increased respiratory rate and shortness of breath. When she walks to the bathroom it takes her 15 minutes to recover. She is tachycardic and cannot take deep breaths. In addition to cough with sputum and shortness of breath, she is week, has not eaten normally for a month and has lost weight. Lowest H/H - 6.9/21.3% on June 20. Arterial blood gas today on room air showed pH 7.509, pCO2 16.6, pO2 60.8 saturation 94% She is breathing rapidly to improve her oxygenation, has a normal saturation but she is alkalotic The nurse started 2 L /min and gave her a Xanax. DATA * 06/18/[address]; Mild interval progression in peripheral predominant reticular and patchy airspace opacities in both lungs which most likely infectious/inflammatory in etiology although differential would include less likely metastatic disease. 2. Diffuse patchy sclerosis of the bones consistent with metastatic disease with no change in chronic T9, T12 and L1 compression fractures. * 06/21/ CXR IMPRESSION: Significant interstitial thickening with progression of patchy groundglass opacification with a bilateral upper lobe distribution. * 06/22/24; CTA - No evidence of pulmonary embolus, aortic dissection, or aortic aneurysm. Worsening patchy consolidation throughout the lungs, as above. Findings suggest worsening pulmonary edema versus pneumonia. Correlate clinically. Extensive osseous metastatic disease. Stable mild compression deformities. Small bilateral pleural effusions, new from prior exam. Objective Data Vital Signs Vital Signs: Vital Signs - 24 hr 06/21/24 09:45 06/21/24 09:46 06/21/24 12:00 Temperature 37.0 C Pulse Rate 108 H Respiratory Rate Blood Pressure Pulse Oximetry Oxygen Delivery Room Air Oxygen Flow Rate Fraction of Inspired Oxygen 06/21/24 14:00 06/21/24 15:57 06/21/24 16:00 Temperature 36.4 C L Pulse Rate 100 100 101 H Respiratory Rate 18 18 Blood Pressure 140/76 Pulse Oximetry 97 97 Oxygen Delivery Room Air Oxygen Flow Rate Fraction of Inspired Oxygen 06/21/24 18:40 06/21/24 20:00 06/21/24 20:00 Temperature Pulse Rate 101 H 101 H Respiratory Rate 18 Blood Pressure Pulse Oximetry 97 97 Oxygen Delivery Venturi Mask Venturi Mask Oxygen Flow Rate 9 9 Fraction of Inspired Oxygen 35 35 06/21/24 20:00 06/21/24 21:40 06/22/24 00:00 Temperature 36.5 C Pulse Rate 113 H 113 H 109 H Respiratory Rate 20 Blood Pressure 145/76 H Pulse Oximetry 98 Oxygen Delivery Oxygen Flow Rate Fraction of Inspired Oxygen 06/22/24 05:59 06/22/24 08:28 Temperature 37.1 C 36.4 C Pulse Rate 118 H 105 H Respiratory Rate 20 18 Blood Pressure 142/83 H 145/76 H Pulse Oximetry 90 97 Oxygen Delivery Oxygen Flow Rate Fraction of Inspired Oxygen Intake/Output Intake/Output: Intake & Output 06/19/24 06/20/24 06/21/24 06/22/24 23:59 23:59 23:59 23:59 Intake Total 4190.8 3684.2 718 190 Output Total 1 Balance 4190.8 3684.2 718 189 Meds/Results Medications: Active Medications Generic Name Dose Route Start Last Admin Trade Name Freq PRN Reason Stop Dose Admin Acetaminophen 650 mg 06/18/24 15:02 06/22/24 04:29 Acetaminophen 325 Mg Tablet PO 650 mg Q4H PRN Administration Mild Pain (1-3) or Fever Albuterol/Ipratropium 3 ml 06/22/24 08:36 Ipratropium 0.5 Mg/Albuterol Sulfate 2.5 Mg Ampul.Neb 3 Ml INHALATION Q6HRT PRN Shortness Of Breath Or Wheezing Alprazolam 0.25 mg 06/18/24 15:02 06/22/24 04:29 Alprazolam (*Crx) 0.25 Mg Tablet PO 0.25 mg TID PRN Administration Anxiety Ascorbic Acid 500 mg 06/18/24 17:00 06/22/24 08:47 Ascorbic Acid 500 Mg Tablet PO 500 mg BID AMADO Administration Benzocaine 1 lozenge 06/21/24 11:49 Benzocaine/Menthol (*Bkc) 18 Ea Lozenge PO PRN PRN Sore Throat Benzonatate 200 mg 06/21/24 11:48 06/21/24 13:57 Benzonatate 100 Mg Capsule PO 200 mg Q8HR PRN Administration Cough Enoxaparin Sodium 75 mg 06/22/24 09:00 06/22/24 08:56 Enoxaparin 80 Mg/0.8 Ml Syringe SUB-Q 75 mg Q12HR AMADO Administration Famotidine 20 mg 06/19/24 09:00 06/22/24 08:45 Famotidine 20 Mg Tablet PO 20 mg DAILY AMADO Administration Ferrous Sulfate 325 mg 06/18/24 17:00 06/22/24 08:45 Ferrous Sulfate [address] BY MOUTH 325 mg BID AMADO Administration Gabapentin 200 mg 06/20/24 21:00 06/21/24 20:16 Gabapentin 100 Mg Capsule PO 200 mg HS AMADO Administration Guaifenesin 600 mg 06/21/24 11:50 06/22/24 08:44 Guaifenesin 12 Hr 600 Mg Tabcr PO 600 mg Q12HR AMADO Administration Heparin Sodium (Beef Lung) 50 units 06/19/24 09:00 06/21/24 09:46 Heparin Flush 50 Units/5 Ml Syringe IV PUSH 50 units QAM AMADO Administration Heparin Sodium (Beef Lung) 50 units 06/18/24 10:10 Heparin Flush 50 Units/5 Ml Syringe IV PUSH PRN PRN after intermittent infusion Heparin Sodium (Beef Lung) 50 units 06/18/24 10:10 Heparin Flush 50 Units/5 Ml Syringe IV PUSH PRN PRN after blood draws Heparin Sodium (Porcine) 500 units 06/18/24 10:10 Heparin Sodium Lock Flush 500 Units/5 Ml Syringe IV PUSH PRN PRN see comments below Levofloxacin/Dextrose 500 mg in 100 mls @ 66.667 mls/hr 06/20/24 12:00 06/20/24 11:58 Levaquin 500 Mg/D5w 100 Ml IVPB 66.67 mls/hr Q48H AMADO Administration Loperamide HCl 2 mg 06/18/24 19:16 06/21/24 10:11 Loperamide Hcl 2 Mg Capsule PO 2 mg PRN PRN Administration Diarrhea Megestrol Acetate 400 mg 06/19/24 09:00 06/21/24 09:45 Megestrol Acetate (*Chemo) Oral Susp 40 Mg/Ml Syr PO 400 mg DAILY AMADO Administration Multivitamins Therapeutic 1 tablet 06/19/24 09:00 06/22/24 08:47 Multivitamins Therapeutic Tab (*Bkc) PO 1 tablet DAILY AMADO Administration Ondansetron HCl 8 mg 06/18/24 15:07 Ondansetron Hcl Odt 4 Mg Tablet PO Q8H PRN Nausea Prochlorperazine Maleate 10 mg 06/18/24 15:03 Prochlorperazine Maleate 5 Mg Tablet PO Q8H PRN nausea and vomiting Radiology Results: ITS Impressions Chest CT 06/18/24 11:03 IMPRESSION: 1. Mild interval progression in peripheral predominant reticular and patchy airspace opacities in both lungs which most likely infectious/inflammatory in etiology although differential would include less likely metastatic disease. 2. Diffuse patchy sclerosis of the bones consistent with metastatic disease with no change in chronic T9, T12 and L1 compression fractures. Chest X-Ray 06/21/24 15:56 IMPRESSION: Significant interstitial thickening with progression of patchy groundglass opacification with a bilateral upper lobe distribution. Chest CTA 06/22/24 06:05 Impression: No evidence of pulmonary embolus, aortic dissection, or aortic aneurysm. Worsening patchy consolidation throughout the lungs, as above. Findings suggest worsening pulmonary edema versus pneumonia. Correlate clinically. Extensive osseous metastatic disease. Stable mild compression deformities. Small bilateral pleural effusions, new from prior exam. Venous Doppler Study 06/22/24 08:38 IMPRESSION: 1. No deep venous thrombosis in either lower limb. Labs Labs: Laboratory Results - last 24 hr 06/21/24 06/22/24 17:10 05:05 WBC 4.9 RBC 2.16 L Hgb 7.3 L Hct 22.0 L MCV 101.9 H MCH 33.8 MCHC 33.2 RDW 18.0 H Plt Count 129 L MPV 9.3 Immature Gran % (Auto) 11.4 H Neut % (Auto) 55.6 Lymph % (Auto) 14.3 L [place] % (Auto) 17.1 H Eos % (Auto) 0.8 Baso % (Auto) 0.8 Lymph # (Auto) 0.70 L [place] # (Auto) 0.8 H Eos # (Auto) 0.0 Baso # (Auto) 0.0 Abs Immat Gran (auto) 0.56 H Absolute Neuts (auto) 2.7 Absolute Nucleated RBC 0.130 H Band Neutrophils % Not Reportable Nucleated RBC % 2.6 H Platelet Estimate Slightly decreased Anisocytosis 1+ Tear Drop Cells 1+ Ovalocytes 1+ Schistocytes None seen PT 20.0 H INR 1.6 APTT 66.1 H Puncture Site Left radial ABG pH 7.509 H* ABG pCO2 16.6 L* ABG pO2 60.8 L ABG PO2/FiO2 Ratio 2.90 ABG HCO3 12.9 L ABG O2 Saturation 94.1 L ABG O2 Content 13.7 L ABG Base Excess -8.0 A-a Gradient 69.1 Oxyhemoglobin 91.7 Total Hemoglobin 10.6 L O2 Delivery Device Room air O2 Liters/Min Not Reportable FiO2 21 Sodium 141 Potassium 3.2 L Chloride 118 H Carbon Dioxide 12 L Anion Gap 11 BUN 19 H Creatinine 1.11 H Estim Creat Clear Calc 41 Estimated GFR 48 L Glucose 88 Calcium 10.1
[2024-06-22] MEDS: MEGESTROL ACETATE (*CHEMO) ORAL SUSP 40 MG/ML SYR 400 MG PO (09:34)
[2024-06-22 11:20] LABS: Procalcitonin 0.4 ng/mL
[2024-06-22] MEDS: PIPERACILLIN/TAZ 4.5G/NS 100ML 4.5 GM/100 ML BAG IVPB (12:09)
[2024-06-22 12:32] LABS: Magnesium 1.5 mg/dL (1.6-2.3)
--- NOTE | 2024-06-22 12:36 | P.PNIM_ITS ---
Subjective Date/time seen: 06/22/24 12:36 Review of Systems Review of Systems: All systems reviewed & are unremarkable except as noted in HPI and below Objective Data Vital Signs Vital Signs: Vital Signs - 24 hr 06/21/24 14:00 06/21/24 15:57 06/21/24 16:00 Temperature 97.5 F L Pulse Rate 100 100 101 H Respiratory Rate 18 18 Blood Pressure 140/76 Pulse Oximetry 97 97 Oxygen Delivery Room Air Oxygen Flow Rate Fraction of Inspired Oxygen 06/21/24 18:40 06/21/24 20:00 06/21/24 20:00 Temperature Pulse Rate 101 H 101 H Respiratory Rate 18 Blood Pressure Pulse Oximetry 97 97 Oxygen Delivery Venturi Mask Venturi Mask Oxygen Flow Rate 9 9 Fraction of Inspired Oxygen 35 35 06/21/24 20:00 06/21/24 21:40 06/22/24 00:00 Temperature 97.7 F Pulse Rate 113 H 113 H 109 H Respiratory Rate 20 Blood Pressure 145/76 H Pulse Oximetry 98 Oxygen Delivery Oxygen Flow Rate Fraction of Inspired Oxygen 06/22/24 05:59 06/22/24 08:28 06/22/24 09:40 Temperature 98.7 F 97.6 F Pulse Rate 118 H 105 H Respiratory Rate 20 18 Blood Pressure 142/83 H 145/76 H Pulse Oximetry 90 97 92 Oxygen Delivery Room Air Oxygen Flow Rate Fraction of Inspired Oxygen 06/22/24 10:40 06/22/24 12:31 Temperature 97.8 F Pulse Rate 112 H Respiratory Rate 28 H Blood Pressure Pulse Oximetry 88 L 98 Oxygen Delivery Venturi Mask Oxygen Flow Rate 9 Fraction of Inspired Oxygen Intake/Output Intake/Output: Intake & Output 06/19/24 06/20/24 06/21/24 06/22/24 23:59 23:59 23:59 23:59 Intake Total 4190.8 3684.2 718 530 Output Total 1 Balance 4190.8 3684.2 718 529 Meds/Results Medications: Active Medications Generic Name Dose Route Start Last Admin Trade Name Freq PRN Reason Stop Dose Admin Acetaminophen 650 mg 06/18/24 15:02 06/22/24 04:29 Acetaminophen 325 Mg Tablet PO 650 mg Q4H PRN Administration Mild Pain (1-3) or Fever Albuterol/Ipratropium 3 ml 06/22/24 08:36 Ipratropium 0.5 Mg/Albuterol Sulfate 2.5 Mg Ampul.Neb 3 Ml INHALATION Q6HRT PRN Shortness Of Breath Or Wheezing Alprazolam 0.25 mg 06/18/24 15:02 06/22/24 04:29 Alprazolam (*Crx) 0.25 Mg Tablet PO 0.25 mg TID PRN Administration Anxiety Ascorbic Acid 500 mg 06/18/24 17:00 06/22/24 08:47 Ascorbic Acid 500 Mg Tablet PO 500 mg BID AMADO Administration Benzocaine 1 lozenge 06/21/24 11:49 Benzocaine/Menthol (*Bkc) 18 Ea Lozenge PO PRN PRN Sore Throat Benzonatate 200 mg 06/21/24 11:48 06/21/24 13:57 Benzonatate 100 Mg Capsule PO 200 mg Q8HR PRN Administration Cough Enoxaparin Sodium 75 mg 06/22/24 09:00 06/22/24 08:56 Enoxaparin 80 Mg/0.8 Ml Syringe SUB-Q 75 mg Q12HR AMADO Administration Famotidine 20 mg 06/19/24 09:00 06/22/24 08:45 Famotidine 20 Mg Tablet PO 20 mg DAILY AMADO Administration Ferrous Sulfate 325 mg 06/18/24 17:00 06/22/24 08:45 Ferrous Sulfate [address] BY MOUTH 325 mg BID AMADO Administration Gabapentin 200 mg 06/20/24 21:00 06/21/24 20:16 Gabapentin 100 Mg Capsule PO 200 mg HS AMADO Administration Guaifenesin 600 mg 06/21/24 11:50 06/22/24 08:44 Guaifenesin 12 Hr 600 Mg Tabcr PO 600 mg Q12HR AMADO Administration Heparin Sodium (Beef Lung) 50 units 06/19/24 09:00 06/22/24 09:36 Heparin Flush 50 Units/5 Ml Syringe IV PUSH 50 units QAM AMADO Administration Heparin Sodium (Beef Lung) 50 units 06/18/24 10:10 Heparin Flush 50 Units/5 Ml Syringe IV PUSH PRN PRN after intermittent infusion Heparin Sodium (Beef Lung) 50 units 06/18/24 10:10 Heparin Flush 50 Units/5 Ml Syringe IV PUSH PRN PRN after blood draws Heparin Sodium (Porcine) 500 units 06/18/24 10:10 Heparin Sodium Lock Flush 500 Units/5 Ml Syringe IV PUSH PRN PRN see comments below Levofloxacin/Dextrose 500 mg in 100 mls @ 66.667 mls/hr 06/20/24 12:00 06/22/24 09:33 Levaquin 500 Mg/D5w 100 Ml IVPB Infused Q48H AMADO Infusion Vancomycin HCl 1,500 mg in 500 mls @ 250 mls/hr 06/23/24 11:00 Vancomycin 1,500 Mg/Ns 500 Ml IVPB Q24H AMADO Vancomycin HCl 2,000 mg in 500 mls @ 250 mls/hr 06/22/24 11:00 Vancomycin 2,000 Mg/Ns 500 Ml IVPB 06/22/24 12:59 ONCE ONE Piperacillin Sod/Tazobactam Sod 4.5 gm in 100 mls @ 200 mls/hr 06/22/24 12:00 06/22/24 12:09 Zosyn 4.5 Gm/Ns 100 Ml IVPB 200 mls/hr Q6H AMADO Administration Loperamide HCl 2 mg 06/18/24 19:16 06/21/24 10:11 Loperamide Hcl 2 Mg Capsule PO 2 mg PRN PRN Administration Diarrhea Megestrol Acetate 400 mg 06/19/24 09:00 06/22/24 09:34 Megestrol Acetate (*Chemo) Oral Susp 40 Mg/Ml Syr PO 400 mg DAILY [facility] Administration Multivitamins Therapeutic 1 tablet 06/19/24 09:00 06/22/24 08:47 Multivitamins Therapeutic Tab (*Bkc) PO 1 tablet DAILY AMADO Administration Ondansetron HCl 8 mg 06/18/24 15:07 Ondansetron Hcl Odt 4 Mg Tablet PO Q8H PRN Nausea Prochlorperazine Maleate 10 mg 06/18/24 15:03 Prochlorperazine Maleate 5 Mg Tablet PO Q8H PRN nausea and vomiting Radiology Results: ITS Impressions Chest CT 06/18/24 11:03 IMPRESSION: 1. Mild interval progression in peripheral predominant reticular and patchy airspace opacities in both lungs which most likely infectious/inflammatory in etiology although differential would include less likely metastatic disease. 2. Diffuse patchy sclerosis of the bones consistent with metastatic disease with no change in chronic T9, T12 and L1 compression fractures. Chest X-Ray 06/21/24 15:56 IMPRESSION: Significant interstitial thickening with progression of patchy groundglass opacification with a bilateral upper lobe distribution. Chest CTA 06/22/24 06:05 Impression: No evidence of pulmonary embolus, aortic dissection, or aortic aneurysm. Worsening patchy consolidation throughout the lungs, as above. Findings suggest worsening pulmonary edema versus pneumonia. Correlate clinically. Extensive osseous metastatic disease. Stable mild compression deformities. Small bilateral pleural effusions, new from prior exam. Venous Doppler Study 06/22/24 08:38 IMPRESSION: 1. No deep venous thrombosis in either lower limb. Labs Labs: Laboratory Results - last 24 hr 06/21/24 06/22/24 06/22/24 17:10 05:05 12:01 WBC 4.9 RBC 2.16 L Hgb 7.3 L Hct 22.0 L MCV 101.9 H MCH 33.8 MCHC 33.2 RDW 18.0 H Plt Count 129 L MPV 9.3 Immature Gran % (Auto) 11.4 H Neut % (Auto) 55.6 Lymph % (Auto) 14.3 L [place] % (Auto) 17.1 H Eos % (Auto) 0.8 Baso % (Auto) 0.8 Lymph # (Auto) 0.70 L [place] # (Auto) 0.8 H Eos # (Auto) 0.0 Baso # (Auto) 0.0 Abs Immat Gran (auto) 0.56 H Absolute Neuts (auto) 2.7 Absolute Nucleated RBC 0.130 H Band Neutrophils % Not Reportable Nucleated RBC % 2.6 H Platelet Estimate Slightly decreased Anisocytosis 1+ Tear Drop Cells 1+ Ovalocytes 1+ Schistocytes None seen PT 20.0 H INR 1.6 APTT 66.1 H Puncture Site Left radial ABG pH 7.509 H* ABG pCO2 16.6 L* ABG pO2 60.8 L ABG PO2/FiO2 Ratio 2.90 ABG HCO3 12.9 L ABG O2 Saturation 94.1 L ABG O2 Content 13.7 L ABG Base Excess -8.0 A-a Gradient 69.1 Oxyhemoglobin 91.7 Total Hemoglobin 10.6 L O2 Delivery Device Room air O2 Liters/Min Not Reportable FiO2 21 Sodium 141 Potassium 3.2 L Chloride 118 H Carbon Dioxide 12 L Anion Gap 11 BUN 19 H Creatinine 1.11 H Estim Creat Clear Calc 41 Estimated GFR 48 L Glucose 88 Calcium 10.1 Magnesium 1.5 L Procalcitonin 0.4
[2024-06-22] MEDS: FUROSEMIDE INJ 40 MG/4 ML VIAL 20 MG IV PUSH (12:56)
[2024-06-22] MEDS: levoFLOXacin 500 MG/D5W 100 ML 500 MG/100 ML BAG 66.67 MG IVPB (12:59)
[2024-06-22 13:28] LABS: MRSA (PCR) NOT DETECTED (NOT DETECTE)
[2024-06-22 14:07] LABS: Alveolar/Arterial O2 Gradient 43.6 mmHg; Base Excess ABG -8.6 mEq/l (+/-2.0); Fractional Inspired Oxygen 21 %; HCO3 ABG 13.5 mEq/l (22.0-26.0); Oxygen Content ABG 12.1 %vol (16.0-22.0); Oxygen Saturation ABG 97.1 % (95.0-100.0); Oxyhemoglobin 95.8 % THb (90.0-100.0); PO2 ABG 83.7 mmHg (80.0-100.0); PO2 FiO2 Ratio Arterial Blood 3.99 %; Total Hemoglobin 8.9 g/dL (12.0-18.0); pH ABG 7.475 (7.350-7.450)
[2024-06-22 14:13] LABS: Device ROOM AIR; Modified Allen's Test Pass; PCO2 ABG 18.7 mmHg (35.0-45.0); Site Drawn LEFT RADIAL
--- NOTE | 2024-06-22 14:33 | P.TS_ITS ---
Transfer Discharge Sum: Prov Provider Date of admission: 06/19/24 07:26 Primary care physician: Alexey Medrano DO Admitting clinician: Dre Russell MD Attending physician on admission: Dre Russell Consults: 06/18/24 15:53 Consult to Physician Routine Comment: Spoke to 06/18 0761 ([facility]) Consulting Provider: Balaji Singh manager call center/MD group to consult: Pulmonology Reason for consultation: Pneumonia versus Mets the lungs Has provider been notified: Yes 06/19/24 12:40 Consult to Physician Routine Comment: Spoke to DR @1250 06/19 [facility] Consulting Provider: Tiarra Virk manager call center/MD group to consult: Dr. Rivera Reason for consultation: history of breast cancer Has provider been notified: Yes 06/22/24 Care Coordination Consult Routine Reason for Consult:: Other Attending physician on discharge: Rashel Martin Discharging clinician: Melanie Gamboa Anticipated date of transfer: 06/22/24 Receiving physician/facility: [facility] DS: Admitting Diagnosis Discharge Date 06/22/2024 Admitting Diagnosis Weakness, decreased appetite DS: Discharge Diagnosis Discharge Diagnosis (1) Pneumonia: Code(s): J18.9 - Pneumonia, unspecified organism Status: Acute (2) Acute hypoxemic respiratory failure: Code(s): J96.01 - Acute respiratory failure with hypoxia Status: Acute (3) Breast cancer metastasized to bone: Code(s): C50.919 - Malignant neoplasm of unspecified site of unspecified female breast; C79.51 - Secondary malignant neoplasm of bone Status: Acute (4) Weakness: Code(s): R53.1 - Weakness Status: Acute (5) Acute respiratory alkalosis: Code(s): E87.3 - Alkalosis Status: Acute (6) Hypokalemia: Code(s): E87.6 - Hypokalemia Status: Acute (7) Macrocytic anemia: Code(s): D53.9 - Nutritional anemia, unspecified Status: Acute (8) Chemotherapy induced diarrhea: Code(s): K52.1 - Toxic gastroenteritis and colitis; T45.1X5A - Adverse effect of antineoplastic and immunosuppressive drugs, initial encounter Status: Acute Transfer Discharge Sum: Med Medications Active and Home Medications: Home Medications ascorbic acid (vitamin C) 500 mg tablet 500 mg PO BID 12/17/18 [History Confirmed 06/18/24] famotidine 20 mg tablet 20 mg PO DAILY 12/17/18 [History Confirmed 06/18/24] multivitamin 1 tablet PO DAILY 12/17/18 [History Confirmed 06/18/24] acetaminophen 500 mg capsule 1,000 mg PO Q8H PRN Pain 10/07/21 [History Confirmed 06/18/24] ferrous sulfate 325 mg (65 mg iron) tablet 325 mg PO BID 10/07/21 [History Confirmed 06/18/24] vitamin B12 1 mg-folic acid 0.8 mg tablet 1,000 tablet PO DAILY 07/23/23 [History Confirmed 06/18/24] diphenoxylate-atropine 2.5 mg-0.025 mg tablet 1 tablet PO PRN PRN Diarrhea 12/25/23 [History Confirmed 06/18/24] lisinopril 20 mg tablet 20 mg PO DAILY 12/25/23 [History Confirmed 06/18/24] ondansetron 8 mg disintegrating tablet 8 mg PO Q8H PRN Nausea 12/25/23 [History Confirmed 06/18/24] loperamide 2 mg capsule 2 mg PO PRN PRN Diarrhea 12/26/23 [History Confirmed 06/18/24] megestrol 400 mg/10 mL (40 mg/mL) oral suspension 400 mg PO DAILY 05/31/24 [H istory Confirmed 06/18/24] levofloxacin 500 mg tablet 500 mg PO DAILY 06/18/24 [History Confirmed 06/18/24] prochlorperazine maleate 10 mg tablet 10 mg PO Q8H PRN nausea and vomiting 06/18/24 [History Confirmed 06/18/24] Active Medications Acetaminophen (Acetaminophen 325 Mg Tablet) 650 mg PO Q4H PRN PRN Reason: Mild Pain (1-3) or Fever Last Admin: 06/22/24 04:29 Dose: 650 mg Albuterol/Ipratropium (Ipratropium 0.5 Mg/Albuterol Sulfate 2.5 Mg Ampul.Neb 3 Ml) 3 ml INHALATION Q6HRT PRN PRN Reason: Shortness Of Breath Or Wheezing Alprazolam (Alprazolam (*Crx) 0.25 Mg Tablet) 0.25 mg PO TID PRN PRN Reason: Anxiety Last Admin: 06/22/24 04:29 Dose: 0.25 mg Ascorbic Acid (Ascorbic Acid 500 Mg Tablet) 500 mg PO BID [facility] Last Admin: 06/22/24 08:47 Dose: 500 mg Benzocaine (Benzocaine/Menthol (*Bkc) 18 Ea Lozenge) 1 lozenge PO PRN PRN PRN Reason: Sore Throat Benzonatate (Benzonatate 100 Mg Capsule) 200 mg PO Q8HR PRN PRN Reason: Cough Last Admin: 06/21/24 13:57 Dose: 200 mg Enoxaparin Sodium (Enoxaparin 80 Mg/0.8 Ml Syringe) 75 mg SUB-Q Q12HR [facility] Last Admin: 06/22/24 08:56 Dose: 75 mg Famotidine (Famotidine 20 Mg Tablet) 20 mg PO DAILY [facility] Last Admin: 06/22/24 08:45 Dose: 20 mg Ferrous Sulfate (Ferrous Sulfate [address]) 325 mg BY MOUTH BID [facility] Last Admin: 06/22/24 08:45 Dose: 325 mg Gabapentin (Gabapentin 100 Mg Capsule) 200 mg PO HS [facility] Last Admin: 06/21/24 20:16 Dose: 200 mg Guaifenesin (Guaifenesin 12 Hr 600 Mg Tabcr) 600 mg PO Q12HR [facility] Last Admin: 06/22/24 08:44 Dose: 600 mg Heparin Sodium (Beef Lung) (Heparin Flush 50 Units/5 Ml Syringe) 50 units IV PUSH QAM [facility] Last Admin: 06/22/24 09:36 Dose: 50 units Heparin Sodium (Beef Lung) (Heparin Flush 50 Units/5 Ml Syringe) 50 units IV PUSH PRN PRN PRN Reason: after intermittent infusion Heparin Sodium (Beef Lung) (Heparin Flush 50 Units/5 Ml Syringe) 50 units IV PUSH PRN PRN PRN Reason: after blood draws Heparin Sodium (Porcine) (Heparin Sodium Lock Flush 500 Units/5 Ml Syringe) 500 units IV PUSH PRN PRN PRN Reason: see comments below Levofloxacin/Dextrose (Levaquin 500 Mg/D5w 100 Ml) 500 mg in 100 mls @ 66.667 mls/hr IVPB Q48H [facility] Last Admin: 06/22/24 12:59 Dose: 66.67 mls/hr Vancomycin HCl (Vancomycin 1,500 Mg/Ns 500 Ml) 1,500 mg in 500 mls @ 250 mls/hr IVPB Q24H [facility] Piperacillin Sod/Tazobactam Sod (Zosyn 4.5 Gm/Ns 100 Ml) 4.5 gm in 100 mls @ 200 mls/hr IVPB Q6H [facility] Last Admin: 06/22/24 12:09 Dose: 200 mls/hr Magnesium Sulfate (Magnesium Sulf 2 Gm/Water 50ml) 2 gm in 50 mls @ 25 mls/hr IVPB ONCE ONE Stop: 06/22/24 15:59 Loperamide HCl (Loperamide Hcl 2 Mg Capsule) 2 mg PO PRN PRN PRN Reason: Diarrhea Last Admin: 06/21/24 10:11 Dose: 2 mg Megestrol Acetate (Megestrol Acetate (*Chemo) Oral Susp 40 Mg/Ml Syr) 400 mg PO DAILY [facility] Last Admin: 06/22/24 09:34 Dose: 400 mg Multivitamins Therapeutic (Multivitamins Therapeutic Tab (*Bkc)) 1 tablet PO DAILY [facility] Last Admin: 06/22/24 08:47 Dose: 1 tablet Ondansetron HCl (Ondansetron Hcl Odt 4 Mg Tablet) 8 mg PO Q8H PRN PRN Reason: Nausea Prochlorperazine Maleate (Prochlorperazine Maleate 5 Mg Tablet) 10 mg PO Q8H PRN PRN Reason: nausea and vomiting Transfer Discharge Sum: Hosp Hospital Course Hospital course: Syeda Marks is a 73 year old female initial presentation showed leukopenia at 4.3, hemoglobin of 8.7 baseline being around 10, chloride of 112, carbon dioxide of 8, INR gap 18, BUN of 72, creatinine of 2.86 with baseline being around 1.18, AST 103 alkaline phos 187, proBNP 249, UA shows no acute process. CT of the chest shows Mild interval progression in peripheral predominant reticular and patchy airspace opacities in both lungs which most likely infectious/inflammatory in etiology although differential would include less likely metastatic disease. Her las CT chest was on 12/08/23 which showed There is no evidence of any significant mediastinal, hilar or axillary lymphadenopathy. The mediastinal soft tissues appear normal. Stable 2 mm right upper lobe pulmonary nodule/granuloma. There is linear right basilar scarring or atelectasis. There is linear left basilar scarring or atelectasis. Calcified left lower lobe granulomas are present. Chest X-Ray 06/21/24 15:56 IMPRESSION: Significant interstitial thickening with progression of patchy groundglass opacification with a bilateral upper lobe distribution. Chest CTA 06/22/24 06:05 Impression: No evidence of pulmonary embolus, aortic dissection, or aortic aneurysm. Worsening patchy consolidation throughout the lungs, as above. Findings suggest worsening pulmonary edema versus pneumonia. Correlate clinically. Extensive osseous metastatic disease. Stable mild compression deformities. Small bilateral pleural effusions, new from prior exam. Venous Doppler Study 06/22/24 08:38 IMPRESSION: 1. No deep venous thrombosis in either lower limb. Arterial blood gas 06/21/24 on room air showed pH 7.509, pCO2 16.6, pO2 60.8 saturation 94% Arterial blood gas today on room air showed pH 7.475 pCO2 18.7, pO2 83.7. Pulmonology saw patient and recommended patient be transferred to [facility] or higher level of services, metastatic breast cancer with worsening bilateral pneumonia, possible breast cancer to lungs. Oncologist covering for Dr Rivera, Dr Virk, she agreed with transfer for higher level of care for this patient. Patient accepted by [facility] after Pulmonology did call for transfer and bed available today. Time Spent with Patient Time attestation: Total time spent providing and/or coordinating transfer services: Total time spent: Greater than 30 minutes Exam Const: General: comfortable and no acute distress Resp: Effort & Inspection: normal respiratory effort Auscultation: diminished lung sounds Cardio: Rate: tachycardic GI: GI Palp: Yes Soft to palpation Auscultation: normal bowel sounds Extrem: General: no pedal edema Psych: Mental Status: mental status grossly normal Affect: normal affect Other: Tearful when discussed transfer to [facility]. DS: Data Data Completed and Pending Labs on day of discharge: Labs from last 24 hours 06/22/24 06/22/24 06/22/24 13:57 12:06 12:05 WBC RBC Hgb Hct MCV MCH MCHC RDW Plt Count MPV Immature Gran % (Auto) Neut % (Auto) Lymph % (Auto) [place] % (Auto) Eos % (Auto) Baso % (Auto) Lymph # (Auto) [place] # (Auto) Eos # (Auto) Baso # (Auto) Abs Immat Gran (auto) Absolute Neuts (auto) Absolute Nucleated RBC Band Neutrophils % Nucleated RBC % Platelet Estimate Anisocytosis Tear Drop Cells Ovalocytes Schistocytes PT INR APTT Puncture Site Left radial ABG pH 7.475 H ABG pCO2 18.7 L* ABG pO2 83.7 ABG PO2/FiO2 Ratio 3.99 ABG HCO3 13.5 L ABG O2 Saturation 97.1 ABG O2 Content 12.1 L ABG Base Excess -8.6 A-a Gradient 43.6 Oxyhemoglobin 95.8 Total Hemoglobin 8.9 L O2 Delivery Device Room air O2 Liters/Min Not Reportable FiO2 21 Sodium Potassium Chloride Carbon Dioxide Anion Gap BUN Creatinine Estim Creat Clear Calc Estimated GFR Glucose Calcium Magnesium Procalcitonin Nasal MRSA (PCR) Not detected Nasal RSV Type A (PCR) Pending Nasal RSV Type B (PCR) Pending Chlamy pneumoniae PCR Pending Adenovirus DNA Pending Human Bocavirus (ROBERTA) Pending Coronavirus Type OC43 Pending Coronavirus Type HKU1 Pending Coronavirus Type 229E Pending Coronavirus Type NL63 Pending Human Metapneumovir PCR Pending Influenza A (PCR) Pending Influenza A (H1) RNA Pending Influenza A (H3) PCR Pending M. pneumoniae DNA Pending Parainfluenza PCR Pending Parainfluenza 2 (PCR) Pending Parainfluenza 3 RNA (PCR) Pending Parainfluenza 4 (PCR) Pending Rhino/Enterovirus (ROBERTA) Pending SARS-CoV-2 RNA (RT-PCR) Pending Influenza Type B (PCR) Pending [facility] Test Comment Pending 06/22/24 06/22/24 06/21/24 12:01 05:05 17:10 WBC 4.9 RBC 2.16 L Hgb 7.3 L Hct 22.0 L MCV 101.9 H MCH 33.8 MCHC 33.2 RDW 18.0 H Plt Count 129 L MPV 9.3 Immature Gran % (Auto) 11.4 H Neut % (Auto) 55.6 Lymph % (Auto) 14.3 L [place] % (Auto) 17.1 H Eos % (Auto) 0.8 Baso % (Auto) 0.8 Lymph # (Auto) 0.70 L [place] # (Auto) 0.8 H Eos # (Auto) 0.0 Baso # (Auto) 0.0 Abs Immat Gran (auto) 0.56 H Absolute Neuts (auto) 2.7 Absolute Nucleated RBC 0.130 H Band Neutrophils % Not Reportable Nucleated RBC % 2.6 H Platelet Estimate Slightly decreased Anisocytosis 1+ Tear Drop Cells 1+ Ovalocytes 1+ Schistocytes None seen PT 20.0 H INR 1.6 APTT 66.1 H Puncture Site Left radial ABG pH 7.509 H* ABG pCO2 16.6 L* ABG pO2 60.8 L ABG PO2/FiO2 Ratio 2.90 ABG HCO3 12.9 L ABG O2 Saturation 94.1 L ABG O2 Content 13.7 L ABG Base Excess -8.0 A-a Gradient 69.1 Oxyhemoglobin 91.7 Total Hemoglobin 10.6 L O2 Delivery Device Room air O2 Liters/Min Not Reportable FiO2 21 Sodium 141 Potassium 3.2 L Chloride 118 H Carbon Dioxide 12 L Anion Gap 11 BUN 19 H Creatinine 1.11 H Estim Creat Clear Calc 41 Estimated GFR 48 L Glucose 88 Calcium 10.1 Magnesium 1.5 L Procalcitonin 0.4 Nasal MRSA (PCR) Nasal RSV Type A (PCR) Nasal RSV Type B (PCR) Chlamy pneumoniae PCR Adenovirus DNA Human Bocavirus (ROBERTA) Coronavirus Type OC43 Coronavirus Type HKU1 Coronavirus Type 229E Coronavirus Type NL63 Human Metapneumovir PCR Influenza A (PCR) Influenza A (H1) RNA Influenza A (H3) PCR M. pneumoniae DNA Parainfluenza PCR Parainfluenza 2 (PCR) Parainfluenza 3 RNA (PCR) Parainfluenza 4 (PCR) Rhino/Enterovirus (ROBERTA) SARS-CoV-2 RNA (RT-PCR) Influenza Type B (PCR) [facility] Test Comment Preliminary micro results at discharge 06/18/24 12:35 Blood Culture - Preliminary Blood 06/18/24 12:35 Blood Culture - Preliminary Blood
[2024-06-22] MEDS: VANCOMYCIN 2,000 MG/NS 500 ML 2,000 MG/500 ML BAG 250 MG IVPB (14:38)
[2024-06-22] MEDS: MAGNESIUM SULF 2 GM/WATER 50ML 2 GM/50 ML BAG IVPB (16:50)
[2024-06-25 11:49] LABS: Adenovirus DNA Not Detected (Not Detected); Chlamydophila pneumoniae Not Detected (Not Detected); Coronavirus 229E Not Detected (Not Detected); Coronavirus HKU1 Not Detected (Not Detected); Coronavirus NL63 Not Detected (Not Detected); Coronavirus OC43 Not Detected (Not Detected); Human Metapneumovirus Not Detected (Not Detected); Human Parainfluenza Virus 1 Not Detected (Not Detected); Human Parainfluenza Virus 2 Not Detected (Not Detected); Human Parainfluenza Virus 3 Not Detected (Not Detected); Human Parainfluenza Virus 4 Not Detected (Not Detected); Human RSV B Not Detected (Not Detected); Influenza A Not Detected (Not Detected); Influenza B Not Detected (Not Detected); Mycoplasma pneumoniae Not Detected (Not Detected); Rhinovirus/Enterovirus Not Detected (Not Detected)
== END 2024-06-22 18:29 | disposition short-term general hospital (02) | DRG 682 ==
LOC: ANHED 10:17 → ANH2MED 12:04
PROVIDERS: Emergency Medicine; Family Medicine; Internal Medicine Critical Care Medicine; Nurse Practitioner Gerontology; Admitting Provider Internal Medicine; Emergency Provider Emergency Medicine; PCP Internal Medicine; Visit Provider Nurse Practitioner Family
DX: N17.9 Acute kidney failure, unspecified (principal); J18.9 Pneumonia, unspecified organism; J96.01 Acute respiratory failure with hypoxia; C79.51 Secondary malignant neoplasm of bone; K52.1 Toxic gastroenteritis and colitis; E87.3 Alkalosis; C50.911 Malignant neoplasm of unspecified site of right female breast; E86.0 Dehydration; I10 Essential (primary) hypertension; D64.9 Anemia, unspecified; K21.9 Gastro-esophageal reflux disease without esophagitis; G25.81 Restless legs syndrome; T45.1X5A Adverse effect of antineoplastic and immunosuppressive drugs, initial encounter; Z20.822 Contact with and (suspected) exposure to COVID-19; Z17.0 Estrogen receptor positive status [ER+]; Z17.21 Progesterone receptor positive status; Z17.31 Human epidermal growth factor receptor 2 positive status
CPT/HCPCS: 36415; 36600; 71045; 71250; 71275; 80048; 80053; 81001; 82805; 83735; 83880; 84145; 85014; 85018; 85025; 85027; 85610; 85730; 87040; 87633; 87641; 93005; 93970; 96361; 96365; 99285; A9270; G0378; J1642; J1644; J1650; J1938; J1956; J2543; J3370; J3475; J7030; J7120; Q4081; Q9967

== ENCOUNTER 2024-07-05 18:37 | Observation (INO) | payer MEDICARE, OTHER, SELFPAY ==
--- NOTE | ~2024-07-05 | XR_ITS ---
CHEST RADIOGRAPH CLINICAL HISTORY: gen weakness; recent pneumonia . COMPARISON: 06/21/2024 TECHNIQUE: Single portable view of the chest. FINDINGS Left internal jugular central venous port catheter identified with its tip projecting over the cavoat rial junction. The remainder of the cardiomediastinal silhouette is otherwise unremarkable. Patchy opacification of the bilateral upper and right lower lobes, unchanged from prior. The remainder of the lungs are clear. IMPRESSION: Multifocal infiltrates, as detailed above. Reviewed, dictated and finalized at location A.
--- NOTE | ~2024-07-05 | CT_ITS ---
EXAMINATION: CT brain wo con DATE: 07/06/2024 08:33 INDICATION: Altered mental status with metastatic breast cancer. TECHNIQUE: Computed tomography (CT) of the head was performed without intravenous contrast. Sagittal and coronal reconstructions were performed. The mA was adjusted according to patient size. Iterative reconstruction technique was employed. The dose-length product was 681.00 mGy-cm. COMPARISON: None FINDINGS: Small old lacunar infarct in the right peritrigonal white matter. No acute intracranial hemorrhage, a cute infarction or abnormal extra axial fluid collection. There is mild scattered white matter hypoat tenuation consistent with chronic small vessel ischemic disease. Ventricles are normal and symmetric . No mass/mass effect. Changes of bilateral intraocular lens replacement. The orbits, paranasal sinus es and mastoid air cells are normal. IMPRESSION: 1. 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 No other acute intracranial proc ess. 2. Mild scattered white matter hypoattenuation consistent with chronic small vessel ischemic disease. Reviewed, dictated and finalized at location A. IMPRESSION: 1. 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 No other a cute intracranial process. 2. Mild scattered white matter hypoattenuation consistent with chronic small ve ssel ischemic disease.
[2024-07-05 18:40] VITALS: BP 145/81; PULSE 115; RESP 16; TEMP 36.4; O2SAT 95
--- OUTSIDE RECORDS SUMMARY | 2024-07-05 18:40 | XMS_ITS ---
Author Organization [facility] Address [address] [place] [address] Care Team Providers Care Owner Oral Surgeon Name Role Phone Alexey Medrano DO Primary Care Provider [phone] Active Problems Patient Care Coordination No te Formatting of this note migh t be different from the original. Primary Care: Sid Barrios PA-C Referring Provider: Sid Barrios PA-C [address] [place] [address] Other: Problem Noted Date Diagnosed Date ILD (interstitial lung disease) 06/24/2024 Hypercalcemia 06/23/2024 Protein-calorie malnutrition, severe 06/23/2024 Acute respiratory failure with hypoxia Acute renal failure 06/22/2024 Elevated LFTs 06/22/2024 Anemia due to antineoplastic chemotherapy 2024 Osteonecrosis of mandible 02/27/2023 Facial abscess 02/24/2023 Osteomyelitis 02/24/2023 Malignant neoplasm of axillary tail of right fem josé miguel breast 01/21/2022 Cancer, metastatic to bone 01/21/2022 Invasive ductal carcinoma of breast, female, rig ht 10/18/2018 Lump of right breast 09/21/2018 Abnormality of left breast on screening mammogra m 09/21/2018 Current Treatment and Therapy Plans No current plan information found. Past Treatment and Therapy Plans No past plan information found. Lifetime Dose Tracking * Chemical Lifetime Dose Automatic Entry Manual Entr y Effective Dose 60.02 mSv 60.02 mSv 0 mSv Total DLP 3,816.34 DLP 3,816.34 DLP 0 DLP CTDIvol Max 27.04 mGy 27.04 mGy 0 mGy CTDIvol Min 1.19 mGy 1.19 mGy 0 mGy
--- OUTSIDE RECORDS SUMMARY | 2024-07-05 18:40 | XMS_ITS | Encounter Summary ---
Author Organization [facility] [employer] [facility] Address [address] [place] [address] Care Team Providers Care Housekeeping Aide Name Role Phone Alexey Medrano Primary Care Provider [phone] Reason for Visit * Reason Comments Med Refill Encounter Details Date Type Department Care Team (Late Contact Info) Description 07/05/2024 Refill [facility] Oncology and Hematology - [place] [address] [facility] [address] [place] [address] Kiran Rivera MD [address] [place] [address] Social History Tobacco Use Types Packs/Day Years Used Date Smoking Tobacco: Never Smokeless Tobacco: Never Alcohol Use Standard Drinks/Week Comments Yes 0 (1 standard drink = 0.6 oz pur e alcohol) rarely Feeling Safe Answer Date Recorded Are you in a relationship wi th someone who hurts you emotionally and/or physically? No 06/22/2024 Food Insecurity Answer Date Recorded Patient needs follow up regardin 06/22/2024 Transportation Needs Answer Date Record ed Patient needs follow up regardin 06/22/2024 Housing Stability Answer Date Recorded Social/Environmental Concerns No concerns Utility Needs Answer Date Recorded Patient needs follow up regardin 06/22/2024 Comments No Sex and Gender Information Value Date Recorded Sex Assigned at Not on file Legal Sex Female 10:42 AM CDT Gender Identity Not on file Sexual Orientation Not on file documented as of this encounter Plan of Treatment Upcoming Encounters Date Type Department Care Team (Late Contact Info) Description 07/28/2024 8:45 AM CDT Office Visit [facility] Oncology and Hematology - [place] [address] [place] [address] Kiran Rivera MD [address] [place] [address] documented as of this encounter Visit Diagnoses Not on filedocumented in this encounter Care Teams Housekeeping Aide Relationship Specialty Start Date End Date Alexey Medrano DO [address] [place] [id number] PCP - General Internal Medicine 12/15/23 documented as of this encounter
--- OUTSIDE RECORDS SUMMARY | 2024-07-05 18:40 | XMS_ITS | Clinical Summary ---
Author Organization [facility] Address [address] [place] [address] Care Team Providers Care Display Designer Name Role Phone Sid Barrios PA-C Primary Care Provide r Source Comments [facility] Affiliates and Associated Physician Practices is amultiple site organization consisting of ambulatory clinics and hospital sitesin [place], [place], [place] and [place]. This disclosure is being madepursuant to the Care Everywhere program and may not contain all information available regarding this patient. Last updated 17.[facility] [employer] Social History Tobacco Use Types Packs/Day [...] Group ID:Not on file Type:Self Pay Address: [place], [place] [employer]IC[employer] [place] [employer] [place] [employer] [place] Care Teams Display Designer Relationship Specialty Start Date End Date Sid Barrios PA-C [address] [place] [address] PCP - General Physician City Engineer 02/27/23
--- OUTSIDE RECORDS SUMMARY | 2024-07-05 18:40 | XMS_ITS | Clinical Summary ---
Author Organization Unknown Care Team Providers Care Patternmaker Apprentice Wood Name Role Phone AGUSTIN INTERSDOTTIETE, PENTECOSTALISM Unavailable Latoya vailable RAMON PT, ABRIL Unavailable Unavailable Payers Payer Name Policy Type Policy Number Effective Date Expira tion Date MEDICARE.[facility] [id number] Problems Condition Name Condition Details Condition Category Status Onset Date Resolution Date Last Treatment Date Treating Clinician Comments ACUTE RESPIRATORY FAILURE WITH HYPOXIA Active 06-27 00:00: 00 Allergies, Adverse Reactions, Alerts Allergy Name Allergy Type Status Severity Reaction(s) Onset Date Inactive Date Treating Clinician Comments NO KNOWN ALLERGIES Propensity to adverse reactions Active 06-30 16:24: 03 Medications Ordered Medication Name Filled Medication Name Start Date Stop Date Current Medication? Ordering Clinician Indication Dosage Frequency Signature (SIG) Comments Components diphenoxyla te-atropine 2.5 mg-0.025 mg tablet 2022-03 00:00: 00 03-03 00:00 :00 No [id number] Unavailable Per instruc tions FOUR TIMES DAILY NEEDED Per instructio ns FOUR TIMES DAILY NEEDED (route: oral) Med Classific ation: Gastroint estinal Therapy Agents hydrocodone 5 mg-acetamin ophen 325 mg tablet 2022-03 00:00: 00 03-03 00:00 :00 No [id number] Unavailable Per instruc tions Per instructio ns (route: oral) Med Classific ation: Analgesic , Anti-infl ammatory or Antipyret ic acetaminoph en 325 mg tablet 03-02 00:00: 00 06-26 23:59 :00 No [id number] DISEASE MANAGEMENT Per instruc tions EVERY 6 HOURS Per instructio ns EVERY 6 HOURS (route: oral) Med Classific ation: Analgesic , Anti-infl ammatory or Antipyret ic cefuroxime axetil 500 mg tablet 03-02 00:00: 00 06-26 23:59 :00 No [id number] DISEASE MANAGEMENT Per instruc tions 2 TIMES DAILY Per instructio ns 2 TIMES DAILY (route: oral) Med Classific ation: Anti-Infe ctive Agents Florastor 250 mg capsule 03-02 00:00: 00 06-26 23:59 :00 No [id number] DISEASE MANAGEMENT Per instruc tions 2 TIMES DAILY Per instructio ns 2 TIMES DAILY (route: oral) Med Classific ation: Gastroint estinal Therapy Agents hydrocodone 5 mg-acetamin ophen 325 mg tablet 03-02 00:00: 00 06-26 23:59 :00 No [id number] DISEASE MANAGEMENT Per instruc tions EVERY 6 HOURS Per instructio ns EVERY 6 HOURS (route: oral) Med Classific ation: Analgesic , Anti-infl ammatory or Antipyret ic ibuprofen 600 mg tablet 03-02 00:00: 00 06-26 23:59 :00 No [id number] DISEASE MANAGEMENT Per instruc tions EVERY 6 HOURS Per instructio ns EVERY 6 HOURS (route: oral) Med Classific ation: Analgesic , Anti-infl ammatory or Antipyret ic Iron (ferrous sulfate) 325 mg (65 mg iron) tablet 03-02 00:00: 00 06-26 23:59 :00 No [id number] DISEASE MANAGEMENT Per instruc tions DAILY Per instructio ns DAILY (route: oral) Med Classific ation: Electroly te Balance-N utritiona l Products lapatinib 250 mg tablet 03-02 00:00: 00 06-26 23:59 :00 No [id number] DISEASE MANAGEMENT Per instruc tions DAILY Per instructio ns DAILY (route: oral) Med Classific ation: Antineopl astics letrozole 2.5 mg tablet 03-02 00:00: 00 06-26 23:59 :00 No [id number] DISEASE MANAGEMENT Per instruc tions DAILY Per instructio ns DAILY (route: oral) Med Classific ation: Antineopl astics lidocaine-p rilocaine 2.5 %-2.5 % topical cream 03-02 00:00: 00 06-26 23:59 :00 No [id number] DISEASE MANAGEMENT Per instruc tions NEEDED Per instructio ns NEEDED (route: topical) Med Classific ation: Dermatolo gical lisinopril 20 mg tablet 03-02 00:00: 00 06-26 23:59 :00 No [id number] DISEASE MANAGEMENT Per instruc tions DAILY Per instructio ns DAILY (route: oral) Med Classific ation: Cardiovas cular Therapy Agents Lomotil 2.5 mg-0.025 mg tablet 03-02 00:00: 00 06-26 23:59 :00 No [id number] DISEASE MANAGEMENT Per instruc tions 4 TIMES DAILY Per instructio ns 4 TIMES DAILY (route: oral) Med Classific ation: Gastroint estinal Therapy Agents ondansetron HCl 4 mg tablet 03-02 00:00: 00 06-26 23:59 :00 No [id number] DISEASE MANAGEMENT Per instruc tions NEEDED Per instructio ns NEEDED (route: oral) Med Classific ation: Gastroint estinal Therapy Agents doxycycline hyclate 100 mg capsule 03-20 00:00: 00 06-26 23:59 :00 No [id number] PROPHYLACTI C 1 capsule 2 TIMES DAILY 1 capsule 2 TIMES DAILY (route: oral) Med Classific ation: Anti-Infe ctive Agents Vital Signs Vital Name Observation Time Observation Value Commen ts Temperature 2024-07-04 14:59:00.000 97.8 [degF] Temperature 2024-06-30 12:39:00.000 97 [degF] BMI (%) 2024-06-30 12:17:38.000 27 kg/m2 Height 2024-06-30 12:17:21.000 64 [in_us] Pulse 2024-07-04 14:59:00.000 100 /min Pulse 2024-06-30 12:39:00.000 94 /min O2 Saturation (%) 2024-07-04 15:00:00.000 92 % O2 Saturation (%) 2024-06-30 12:39:00.000 93 % Respirations 2024-07-04 15:00:00.000 20 /min Respirations 2024-06-30 12:39:00.000 30 /min Weight (lbs) 2024-06-30 12:17:38.000 160 [lb_av] Systolic Blood Pressure 2024-07-04 14:59:00.000 122 mm [Hg] Systolic Blood Pressure 2024-06-30 12:39:00.000 118 mm [Hg] Diastolic Blood Pressure 2024-07-04 14:59:00.000 78 mm [Hg] Diastolic Blood Pressure 2024-06-30 12:39:00.000 78 mm [Hg] Plan of Treatment Planned Activity Planned Date Details Comments Future Scheduled Test AGENCY MAY PERFORM A RESUMPTION OF CARE VISIT FOLLOWING ANY HOSPITAL ADMISSION. PT TO EVALUATE, OBSERVE / ASSESS, AND MONITOR, FRAME TABLE OPERATOR TO OBSERVE AND MONITOR, PROVIDE SKILLED THERAPEUTIC INTERVENTION, ACTIVITY, EDUCATION, AND TRAINING TO ADDRESS; [code = AGENCY MAY PERFORM A RESUMPTION OF CARE VISIT FOLLOWING ANY HOSPITAL ADMISSION. PT TO EVALUATE, OBSERVE / ASSESS, AND MONITOR, FRAME TABLE OPERATOR TO OBSERVE AND MONITOR, PROVIDE SKILLED THERAPEUTIC INTERVENTION, ACTIVITY, EDUCATION, AND TRAINING TO ADDRESS;] Future Scheduled Test SIT TO/FRO M STAND TRANSFERS (PT/FRAME TABLE OPERATOR) [code = SIT TO/FROM STAND TRANSFERS (PT/FRAME TABLE OPERATOR)] Future Scheduled Test PT/FRAME TABLE OPERATOR TO PROVIDE GAIT TRAINING FOR IMPROVED MOBILITY AND /OR TO NORMALIZE GAIT PATTERN [code = PT/FRAME TABLE OPERATOR TO PROVIDE GAIT TRAINING FOR IMPROVED MOBILITY AND /OR TO NORMALIZE GAIT PATTERN] Future Scheduled Test PT/FRAME TABLE OPERATOR TO PROVIDE STAIR TRAINING [code = PT/FRAME TABLE OPERATOR TO PROVIDE STAIR TRAINING] Future Scheduled Test NEUROMUSCU LAR RE-EDUCATION / BALANCE / POSTURAL CONTROL (PT) [code = NEUROMUSCULAR RE-EDUCATION / BALANCE / POSTURAL CONTROL (PT)] Future Scheduled Test THERAPEUTI C EXERCISES AND ESTABLISHING A HOME EXERCISE PROGRAM (PT/FRAME TABLE OPERATOR) [code = THERAPEUTIC EXERCISES AND ESTABLISHING A HOME EXERCISE PROGRAM (PT/FRAME TABLE OPERATOR)] Future Scheduled Test PT/FRAME TABLE OPERATOR TO IDENTIFY FALL RISK FACTORS; EDUCATE THE PATIENT/CAREGIVER ON WAYS TO REDUCE FALL RISK FACTORS AND ESTABLISH HOME EXERCISE PROGRAM TO MINIMIZE FALL RISK. MAY TEACH THE PATIENT FLOOR RECOVERY WHEN CLINICALLY APPROPRIATE [code = PT/FRAME TABLE OPERATOR TO IDENTIFY FALL RISK FACTORS; EDUCATE THE PATIENT/CAREGIVER ON WAYS TO REDUCE FALL RISK FACTORS AND ESTABLISH HOME EXERCISE PROGRAM TO MINIMIZE FALL RISK. MAY TEACH THE PATIENT FLOOR RECOVERY WHEN CLINICALLY APPROPRIATE] Future Scheduled Test PT / FRAME TABLE OPERATOR T O EDUCATE ON HYPERTENSION SELF-MANAGEMENT [code = PT / FRAME TABLE OPERATOR TO EDUCATE ON HYPERTENSION SELF-MANAGEMENT] Future Scheduled Test PT / FRAME TABLE OPERATOR T O EDUCATE ON PNEUMONIA / ASPIRATION PNEUMONIA SELF-MANAGEMENT. [code = PT / FRAME TABLE OPERATOR TO EDUCATE ON PNEUMONIA / ASPIRATION PNEUMONIA SELF-MANAGEMENT.] Future Scheduled Test OCCUPATION AL THERAPIST TO EVALUATE FOR SAFETY WITH [employer] [code = OCCUPATIONAL THERAPIST TO EVALUATE FOR SAFETY WITH AFLS] Future Scheduled Test SPEECH THE RAPIST TO EVALUATE FOR MEMORY AND COGNITION [code = SPEECH THERAPIST TO EVALUATE FOR MEMORY AND COGNITION] Future Scheduled Test PT / FRAME TABLE OPERATOR T O INSTRUCT PATIENT/CAREGIVER ON RISK FOR HOSPITALIZATION/EMERGENCY ROOM VISITS, TEACH SIGNS AND SYMPTOMS THAT PUT PATIENT AT RISK, WHEN TO NOTIFY NURSE/PHYSICIAN OF COMPLICATIONS/DECLINE, AND WHEN TO CALL 911. [code = PT / FRAME TABLE OPERATOR TO INSTRUCT PATIENT/CAREGIVER ON RISK FOR HOSPITALIZATION/EMERGENCY ROOM VISITS, TEACH SIGNS AND SYMPTOMS THAT PUT PATIENT AT RISK, WHEN TO NOTIFY NURSE/PHYSICIAN OF COMPLICATIONS/DECLINE, AND WHEN TO CALL 911.] Future Scheduled Test PT / FRAME TABLE OPERATOR M AY EDUCATE ON PAIN MANAGEMENT CLINICALLY INDICATED, INCLUDING NON-PHARMACOLOGICAL PAIN REDUCTION TECHNIQUES [code = PT / FRAME TABLE OPERATOR MAY EDUCATE ON PAIN MANAGEMENT CLINICALLY INDICATED, INCLUDING NON-PHARMACOLOGICAL PAIN REDUCTION TECHNIQUES] Goal Patient Goal - TO WSLK WITHO UT A DEVICE Goal Provider Goal - Goal Provider Goal - PT STG: PATIENT WILL DEMONSTRATE IMPROVED ABILITY TO PERFORM SIT TO/FROM STAND TRANSFERS TO REDUCE THE RISK OF SKIN BREAKDOWN AND REDUCE FALL RISK FROM CGA TO INDEP IN 2 WEEKS Goal Provider Goal - PT LTG: PATIENT WILL DEMONSTRATE IMPROVED SAFE FUNCTIONAL MOBILITY BY IMPROVING AMBULATION FROM CGA WITH FWW FOR 30 FT TO INDEP WITH SPC FOR 150 FT INNORDER TO ACCESS ALL AREAS OF THE HOME IN 8 WEEKS Goal Provider Goal - PT LTG: PATIENT WILL DEMONSTRATE IMPROVED ABILITY TO SAFELY NEGOTIATE STAIRS FROM UNABLE TO INDEP WITH HANDRAIL IN ORDER TO A CESS SEWING ROOM UPSTAIRS IN 8 WEEKS Goal Provider Goal - PT LTG: PATIENT WILL DEMONSTRATE REDUCED FALL RISK EVIDENCED BY IMPROVED TINETTI FROM TO IN 8 WEEKS Goal Provider Goal - PT LTG: PATIENT WILL DEMONSTRATE INCREASED STRENGTH OF LES FROM 3+/5 TO 4+/5 IN 8 WEEKS Goal Provider Goal - PT LTG: PATIENT/CAREGIVER WILL DEMONSTRATE ADHERENCE TO FALL REDUCTION SELF-MANAGEMENT AND REDUCING FALL RISK FACTORS TO MINIMIZE FALL RISK BY END OF EPISODE PT LTG: PATIENT WILL BE INDEPENDENT WITH IMPLEMENTATION OF HEP WITHIN 3 WEEKS Goal Provider Goal - PT GOAL: PATIENT/CAREGIVER WILL BE ABLE TO IDENTIFY SIGNS OF EXACERBATION OF HYPERTENSION AND WILL VERBALIZE/DEMONSTRATE AN ABILITY TO ADHERE TO HYPERTENSION SELF-MANAGEMENT AND LIFE-STYLE CHANGES BY END OF EPISODE Goal Provider Goal - PT GOAL: PATIENT / CAREGIVER WILL DEMONSTRATE ADHERENCE TO PNEUMONIA SELF-MANAGEMENT BY END OF EPISODE. Goal Provider Goal - PATIENT/CAREGIVER WILL VERBALIZE UNDERSTANDING OF SIGNS AND SYMPTOMS THAT PUT THE PATIENT AT RISK FOR HOSPITALIZATION /EMERGENCY ROOM VISITS, WHEN TO NOTIFY NURSE/PHYSICIAN OF COMPLICATIONS/DECLINE AND WHEN TO CALL 911. Goal Provider Goal - CAREGIVER WILL DEMONSTRATE ADEQUATE KNOWLEDGE OF PAIN MANAGEMENT BY EOE. Goal Provider Goal - Goal Provider Goal - Encounters Start Date/Time End Date/Time Encounter Type Admission Type Attending [facility] Care Department Encounter ID Discharge Date Discharge Status Discharge Condition Discharge Reason Percent Goals Met 2024-06-30 00:00:00 2024-08-28 00:00:00 Outpatient MERLY Baker [facility] [id number]
--- OUTSIDE RECORDS SUMMARY | 2024-07-05 18:40 | XMS_ITS | Encounter Summary ---
Author Organization [facility] Address [address] [place] [address] Care Team Providers Care Chromium Plater Name Role Phone Alexey Medrano Primary Care Provider [phone] Reason for Referral * Eval and Treat (Routine) - Open Specialty Diagnoses / Procedures [facility] Referred To Contact Pulmonology Diagnoses Pneumonia due to infectious organism, unspecified laterality, unspecified part of lung Procedures CO OFFICE/OUTPATIENT ESTABLISHED MOD MDM 30 MIN CO OFFICE/OUTPATIENT NEW MODERATE MDM 45 MINUTES Kiran Rivera MD [address] [place] [id number] Phone: tel: fax: Referral ID Status Reason Start Date Expiration Date V isits Requested Visits Authorized [id number] Open STL CTS 07/04/2024 07/04/2025 1 1 * PET Scan (Routine) - Closed Specialty Diagnoses / Procedures [facility] Referred To Contact Diagnoses Invasive ductal carcinoma of breast, female, right (CMS/HCC) Procedures PET TUMOR OR INFECTION IMG W CT SKB Kiran Dean MD [address] [place] [phone] Phone: tel: fax: [place] [phone] Referral ID Status Reason Start Date Expiration Date V isits Requested Visits Authorized [id number] Closed STL CTS 07/04/2024 08/04/2025 1 1 Reason for Visit * Reason Comments Cancer Chemotherapy Encounter Details Date Type Department Care Team (Late st Contact Info) Description 07/04/2024 9:15 AM CDT Office Visit [facility] Oncology and Hematology - [place] [address] [facility] [address] [place] [address] Kiran Rivera MD [address] [facility] [address] [place] [address] Pneumonia due to infectious organism, unspecified laterality, unspecified part of lung (Primary Dx); Invasive ductal carcinoma of breast, female, right (CMS/HCC); Cancer, metastatic to bone (CMS/HCC) Social History Tobacco Use Types Packs/Day [...] on file documented as of this encounter Last Filed Vital Signs Vital Sign Reading Time Taken Comments Blood Pressure 129/92 07/04/2024 9:51 AM CDT Pulse 101 07/04/2024 9:49 AM CDT Temperature 37.7 C (99.8 F) 07/04/2024 9:49 AM CDT Respiratory Rate 14 07/04/2024 9:49 AM CDT Oxygen Saturation 93% 07/04/2024 9:49 AM CDT Inhaled Oxygen Concentration - - Weight 73.5 kg (162 lb) 07/04/2024 9:49 AM CDT Height - - Body Mass Index 27.81 06/22/2024 7:46 PM CDT documented in this encounter Progress Notes * Kiran Rivera MD - 07/04/2024 12:37 PM CDT HEMATOLOGY / ONCOLOGY PROGRESS NOTE Patient Identification: Name: Syeda Marks Age: 73 y.o. Sex: female : 1950 DIAGNOSIS Invasive ductal carcinoma of the right breast T1 cN0 M0 stage Ia disease ER CO positive HER-2/sam positive diagnosed September 21, 2018. Status post right-sided lumpectomy and sentinel lymph node biopsy on March 31, 2019. Tumor 1.8 cmwith no lymphovascular invasion, grade 2 along with DCIS, 1 sentinel lymph node negative. CURRENT TREATMENT Enhertu started April 23, 2023. TREATMENT HISTORY Neoadjuvant TCH Perjeta cycle 08/05 completed March 03, 2019. Status post right-sided lumpectomy and sentinel lymph node biopsy on March 31, 2019. Radiation therapy to the right breast completed June 06, 2019 Maintenance Herceptin cycle 1 start June 08, 2019. Completed in January 2020. Patient had left breast mass needle biopsy done on January 15, 2021 that came back benign fibrosis. Patient had debridement of left mandible osteomyelitis done on March 17, 2023. Letrozole, Tykerb and Herceptin started November 27, 2021. Discontinued due to progressive diseaseand poor tolerance in April 2023. Xgeva started October 22, 2021. 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 SUBJECTIVE Patient came to the office for follow-up visit. She was recently discharged from the hospital afterbeing treated for pneumonia. She just started feeling better but still on prednisone tapering dose.Denies any bone pain. No other new complaints. Review of system Constitutional: denies fevers, complain of tiredness and fatigue, weight stable HEENT: denies sinuscongestion, hearing or vision problems, eyes any mouth sores, occasional chin discomfort respiratory: denies cough, dyspnea, wheeze, complain of dyspnea on exertion Cardiovascular: denies chest pain, exertional chest pressure/discomfort, nausea, syncope, GI: denies constipation, dsyphagia, reflux symptoms, occasional diarrhea and nausea : denies dysuria, frequency, incontinence, urgency Integumentary system: no lymphadenopathy, sweats, flushing Musculoskeletal: denies: myalgia, stable hip arthralgia Neurological: denies blurry or disturbed vision, stable peripheral neuropathy Skin: No lumps, bumps or rashes. 12 point review of system was reviewed Objective: Vital signs in last 24 hours: As per nursing note Exam: General appearance: alert, cooperative, no distress, appears stated age Head: normocephalic, without obvious abnormality, atraumatic Eyes: conjunctivae/corneas clear, EOM's intact Ears: normal external ear canals AU Nose: Nares normal. Septum midline. Mucosa normal. No drainage or sinus tenderness Throat: Lips, mucosa, and tongue normal. Teeth and gums normal Neck: supple, symmetrical, trachea midline. Lungs: clear to auscultation bilaterally Heart: regular rate and rhythm, S1, S2 normal, no murmur, click, rub or gallop Abdomen: soft, non-tender. Bowel sounds normal. No masses, No organomegaly Extremities: extremities normal, atraumatic, no cyanosis or edema Skin: Skin color, texture, turgor normal. No rashes or lesions Lymph nodes: No lymphadenopathy Neuro: No obvious focal deficit Exam as above LABS Labs from November 12 showed WBC 7.0 hemoglobin 14.1 platelet 221,000 Labs from December 03 showed WBC 9.9 hemoglobin 12 platelet 283,000 creatinine 0.8. Labs from December 24 showed WBC 13.9 hemoglobin 11.3 platelet 197,000 creatinine 0.9. Labs from January 14, 2019 showed WBC 14.1 hemoglobin 10.4 platelet 202,000 creatinine 0.9 Labs from February 04 show WBC 10 hemoglobin 9.8 platelet 195,000 creatinine 0.8. Labs from March 11 showed WBC 16.6 hemoglobin 10 platelet 154,000 creatinine 0.9. Labs from April 20 showed WBC 4.9 hemoglobin 11.6 platelet 203,000 creatinine 0.9. Labs from June 08, 2019 showed WBC 3.9 hemoglobin 11.6 platelet 148,000 creatinine 1.0. Labs from July 27 show WBC 4.7 hemoglobin 11.4 platelet 160,000 creatinine 1.0. Labs from September 01 show WBC 4.0 hemoglobin 11.5 platelet 169,000. Labs from October 11 showed WBC 4.4 hemoglobin 11.5 platelet 183,000 creatinine 0.9. Labs from November 22 showed WBC 4.3 hemoglobin 11.5 platelet 168,000 creatinine 0.9 Labs from January 03 show WBC 4.0 hemoglobin 11.3 platelet 170,000 creatinine 0.9 Labs from March 28 showed WBC 5.2 hemoglobin 12.1 platelet 204,000 creatinine 1.0 CA 15-3 27. Labs from June 25 showed creatinine 1.0 WBC 5.0 hemoglobin 12.3 platelet 193,000 CA 15-3 is 30 Labs from Oct 29 8 showed WBC 5.4 hemoglobin 12.1 platelet 141,000 creatinine 0.9 CA 15-3 29 Labs from February 25 showed CA 15-3 30 WBC 5.1 hemoglobin 12.6 platelet 199,000 creatinine 1.0 Labs from July 02 showed hemoglobin 11.3 WBC 5.4 platelet 271,000 creatinine 1.1 total bilirubin 0.2 CA 15-3 55 Labs from September 10 show WBC 6.4 hemoglobin 11.3 platelet 259,000 vitamin B12 435 TSH 1.1 iron was 61iron saturation 17% ferritin 651 CA 15-3 124 Labs from December 10, 2021 showed WBC 4.7 hemoglobin 10.6 platelet 200,000 Labs from February 28 2 WBC 6.0 hemoglobin 11.8 platelet 236,000 creatinine 1.1 Labs from March 04 showed creatinine 0.9 bilirubin 0.6 WBC 5.9 hemoglobin 11.4 platelet 187,000 CA15-3 34 Labs from March 25 showed creatinine 1.0 total bilirubin 0.6 WBC 4.7 hemoglobin 10.7 platelet 187,000 Labs from April 29 showed CA 15-3 31 Labs from June 03 showed CA 15-3 36 WBC 5.3 hemoglobin 11.2 platelet 172,000 creatinine 1.2 Labs from July 29 show WBC 5.1 hemoglobin 11 platelet 186,000 creatinine 1.2 CA 15-3 32 Labs from September 09 showed WBC 5.5 hemoglobin 10.9 platelet 212,000 creatinine 1.3 CA 15-3 30 Labs from November 11 showed WBC 5.5 hemoglobin 10.4 platelet 244,000 creatinine 1.5 GFR 34 Labs from December 23 showed WBC 7.1 hemoglobin 10 platelet 240,000 creatinine 1.3 GFR 40 Labs from January 13 showed WBC 8.1 hemoglobin 10.1 platelet 250,000 creatinine 1.3 CA 15-3 31 Labs from February 03 showed creatinine 1.9 hemoglobin 9.7 Labs from March 26 showed CA 15-3 49 hemoglobin 10.2 WBC 5.9 platelet 226,000 creatinine 1.5 Labs from May 17 showed WBC 6.6 hemoglobin 10.2 platelet 1 95,000 creatinine 1.1 Labs from June 28 showed WBC 4.5 hemoglobin 8.8 platelet 221,000 creatinine 1.5 GFR 34 CA 15-3 35 Labs from July 19 show WBC 4.0 hemoglobin 8.8 platelet 197,000 creatinine 1.3 Labs from August 09 showed WBC 4.9 hemoglobin 9.2 platelet 213,000 creatinine 1.9 GFR 26 Labs from September 06 showed WBC 6.7 hemoglobin 10.2 platelet 190,000 creatinine 1.1 GFR 49 Labs from October 11 show WBC 4.3 hemoglobin 9.2 platelet 185,000 creatinine 1.4 GFR 37 CA 15-3 35 Labs from November 23 showed creatinine 1.6 hemoglobin 9.7 WBC 5.1 platelet 192,000 CA 15-3 51 Labs from December 14 showed WBC 4.5 hemoglobin 10.4 platelet 234,000 creatinine 1.4 GFR 37 Labs from January 25 showed creatinine 1.3 platelet 1 77,000 hemoglobin 10.8 platelet 5.4 CA 15-3 went down to 43 Labs from April 19 showed CA 15-3 60 hemoglobin 10.2 creatinine 1.4 Labs from May 29 4 showed hemoglobin 9.7 platelet 117,000 WBC 4.7 creatinine 1.1 CA 15-3 143 Labs from July 04 showed creatinine 1.6 GFR 32 hemoglobin 9.9 WBC 20 platelet 53,000 neutrophils 70% Assessment: Plan: Patient Active Problem List Diagnosis Date Noted ILD (interstitial lung disease) ([facility]) 06/24/2024 Hypercalcemia 06/23/2024 Protein-calorie malnutrition, severe 06/23/2024 Acute respiratory failure with hypoxia ([facility]) 06/22/2024 Acute renal failure 06/22/2024 Elevated LFTs 06/22/2024 Anemia due to antineoplastic chemotherapy 06/22/2024 Osteonecrosis of mandible ([facility]) 02/27/2023 Facial abscess 02/24/2023 Osteomyelitis ([facility]) 02/24/2023 Malignant neoplasm of axillary tail of right female breast ([facility]) 01/21/2022 Cancer, metastatic to bone ([facility]) 01/21/2022 Invasive ductal carcinoma of breast, female, right ([facility]) 10/18/2018 Lump of right breast 09/21/2018 Abnormality of left breast on screening mammogram 09/21/2018 Metastatic breast cancer with bone metastasis diagnosed in October 2021. Patient was initially diagnosed with early stage invasive ductal carcinoma of the right breast ER CO positive HER-2 sam positive. Status post neoadjuvant chemotherapy with TCH Perjeta and right-sidedlumpectomy in March 2019 and then subsequent radiation therapy. Patient had maintenance treatmentwith Herceptin completed in January 2020. Patient started treatment with Enhertu in April 23, 2023. Events noted. Her last treatment was in May 31, 2024. CT abdomen and pelvis done on June 23, 2024 showed extensive bone metastasis with hypodense liver lesions suspicious for metastatic disease. There was soft tissue structure in the left adnexa could represent exophytic uterine fibroid. Brain MRI done on June [address] chest from June 19 showed no evidence of PE. Patchy consolidation throughout the lung likely worsening pulmonary edema versus pneumonia. Due to her continuing recovery from recent pneumonia I will hold chemotherapy for 2 weeks and orderthe PET scan to look into the liver findings further. She will resume chemotherapy after PET scan in about 2 to 3 weeks. If PET scan shows worsening of the disease then we will consider TDM 1. Other option could be tucatinib, trastuzumab and Xeloda. Recurrent pneumonia and shortness of breath. I will refer her to Dr. Newman. Bone metastasis. She will receive refill on tramadol. Xgeva has been permanently discontinued due to osteomyelitis. Anemia secondary to CKD. Patient will continue Procrit on every 2 weeks basis along with iron and vitamin B12. Kiran Rivera MD documented in this encounter Plan of Treatment Upcoming Encounters Date Type Department Care Team (Late st Contact Info) Description 07/28/2024 8:45 AM CDT Office Visit [facility] Oncology and Hematology - [place] [address] [facility] [address] [place] [address] Kiran Rivera MD [address] [facility] [address] [place] [address] Scheduled Orders Name Type Priority Associated Diagnoses Orde r Schedule PET TUMOR OR INFECTION IMG W CT SKB MDTH Imaging Routine Invasive ductal carcinoma of breast, female, right (CMS/HCC) Expected: 07/11/2024, Expires: 07/04/2025 Scheduled Referrals Name Type Priority Associated Diagnoses Orde r Schedule AMB REFERRAL TO PULMONARY Outpatient Referral Routine Pneumonia due to infectious organism, unspecified laterality, unspecified part of lung Ordered: 07/04/2024 documented as of this encounter Visit Diagnoses Diagnosis Pneumonia due to infectious organism, unspecified laterality, unspecified part of lung- Primary Invasive ductal carcinoma of breast, female, right (CMS/HCC) Cancer, metastatic to bone (CMS/HCC) Secondary malignant neoplasm of bone and bone marrow documented in this encounter Care Teams Chromium Plater Relationship Specialty Start Date End Date Alexey Medrano DO [address] [facility] [address] [place] [address] PCP - General Internal Medicine 12/15/23 documented as of this encounter
--- OUTSIDE RECORDS SUMMARY | 2024-07-05 18:40 | XMS_ITS | Clinical Summary ---
Author Organization [facility] Address [address] [place] [address] Care Team Providers Care Driver'S License Examiner Name Role Phone Alexey Medrano Primary Care Provider [phone] Allergies Active Allergy Reactions Criticality Noted Date Comments Amoxicillin-Pot Clavulanate Nausea and Vomiting Low 03/03/2023 Medications lisinopril (PRINIVIL) 20 mg tablet 019 Active iron-vitamin C-vitamin [id number] acid-succinic acid (MULTIGEN PLUS) [id number] pg-ln-emv-mg-m g Tablet tablet Take by mouth. Activ e ascorbic acid (VITAMIN C ORAL) Take by mouth. Activ e COVID-19 VACC,MRNA,MODE RNA,-PF IM Inject by intramuscular injection. Lot [id number] Through [facility] Second shot in one month 021 Active ondansetron (ZOFRAN) 4 mg Tablet TAKE ONE TABLET EVERY 4-6 HOURS DAILY NEEDED 022 Active lidocaine-pril ocaine (EMLA) 2.5-2.5 % Cream Apply to affected area see administration instructions. 30 Gram 1 022 Active ferrous sulfate (FEOSOL) 300 mg (60 mg iron)/5 mL solution Take 300 mg by mouth daily. Active lapatinib (TYKERB) 250 mg tabletIndicati ons:Cancer, metastatic to bone (CMS/HCC),Iza gnant neoplasm of axillary tail of right female breast, unspecified estrogen receptor status (CMS/HCC) TAKE 4 TABLETS BY MOUTH 1 TIME A DAY BEFORE BREAKFAST. 120 Tablet 5 023 Active letrozole (Femara) 2.5 mg tablet Take 1 Tablet (2.5 mg) by mouth daily. 90 Tablet 3 023 Active lidocaine-alum inum-magnesium hydroxide-campos thicone-diphen hydrAMINE mouthwashIndic ations:Cancer, metastatic to bone (CMS/HCC) Take 10 mL by mouth every 4 hours as needed for Pain. 120 mL 3 023 Active acetaminophen (TYLENOL) 325 mg tablet Take 2 Tablets (650 mg) by mouth every 6 hours as needed. 60 Tablet 02/29/20 23 4:36 PM PANTOMIMIST 023 Active ibuprofen (MOTRIN) 600 mg tablet Take 1 Tablet (600 mg) by mouth every 6 hours as needed for mild pain. 60 Tablet 02/29/20 23 4:36 PM PANTOMIMIST 023 Active Saccharomyces boulardii (FLORASTOR) 250 mg Capsule Take 1 Capsule (250 mg) by mouth 2 times daily. 60 Capsule 02/29/20 4:36 PM PANTOMIMIST 023 Active chlorhexidine gluconate (Peridex) 0.12 % Mouthwash 10 mL by Mouth/Throat route 3 times daily. 180 mL 3 024 Active ondansetron (ZOFRAN ODT) 8 mg Tablet, Rapid Dissolve DISSOLVE ONE TABLET ON TOP OF TONGUE THEN SWALLOW WITH SALIVA EVERY 8 HOURS NEEDED FOR NAUSEA AND VOMITING 30 Tablet 1 024 Active prochlorperazi ne maleate (COMPAZINE) 10 mg tablet Take 1 Tablet (10 mg) by mouth every 6 hours as needed for Nausea/Emesis. 30 Tablet 2 024 Active diphenoxylate- atropine 2.5 mg-0.025 mg tabletIndicati ons:Acute diarrhea,Invas sue ductal carcinoma of breast, female, right (CMS/HCC) TAKE 1 TABLET BY MOUTH FOUR TIMES DAILY NEEDED FOR DIARRHEA OR LOOSE STOOLS 90 Tablet 1 025 Active predniSONE (DELTASONE) 10 mg tablet Take 4 Tablets (40 mg) by mouth daily for 3 days, THEN 3 Tablets (30 mg) daily for 3 days, THEN 2 Tablets (20 mg) daily for 3 days, THEN 1 Tablet (10 mg) daily for 3 days. 30 Tablet 025 2024 Active benzonatate (TESSALON) 200 mg capsule Take 1 Capsule (200 mg) by mouth 3 times daily as needed for Cough. 30 Capsule 1 Active traMADol (ULTRAM) 50 mg tabletIndicati ons:Cancer, metastatic to bone (CMS/HCC) Take 1 Tablet (50 mg) by mouth every 6 hours as needed for Pain. 30 Tablet Active naloxone (NARCAN) 4 mg/spray [place], Non-Aerosol EMERGENCY USE ONLY: Administer 1 spray (4 mg) in one nostril one time. May repeat in alternating nostrils every 2-3 min until responsive or EMS arrives. 2 Each 3 Active megestroL (MEGACE) 400 mg/10 mL (40 mg/mL) suspension SHAKE LIQUID AND TAKE 10 ML(400 MG) BY MOUTH DAILY 240 mL 1 Active multivitamin (DAILY-MIREYA) tablet Take 1 Tablet by mouth daily. 2024 Discontinued HYDROcodone-ac etaminophen (NORCO) 5-325 mg tabletIndicati ons:Cancer, metastatic to bone (CMS/HCC) Take 1 Tablet by mouth every 6 hours as needed for Pain, Moderate. Max Daily Amount: 4 Tablets 60 Tablet 023 2024 Discontinued(A lternate therapy prescribed) cefUROXime axetil (CEFTIN) 500 mg tablet Take 1 Tablet (500 mg) by mouth 2 times daily. 18 Tablet 02/29/20 23 4:36 PM PANTOMIMIST 023 2024 Discontinued doxycycline hyclate (VIBRAMYCIN) 100 mg capsule Take 100 mg by mouth 2 times daily. 024 2024 Discontinued megestroL (MEGACE) 400 mg/10 mL (40 mg/mL) suspension Take 10 mL (400 mg) by mouth daily. 240 mL 1 025 2024 Discontinued levoFLOXacin (LEVAQUIN) 500 mg tablet Take 1 Tablet (500 mg) by mouth daily for 7 days. 10 Tablet 025 2024 levoFLOXacin (LEVAQUIN) 500 mg tablet Take 1 Tablet (500 mg) by mouth daily for 10 days. 10 Tablet 025 2024 Discontinued benzonatate (TESSALON) 200 mg capsule Take 1 Capsule (200 mg) by mouth 3 times daily. 30 Capsule 025 2024 Discontinued(A lternate therapy prescribed) traMADol (ULTRAM) 50 mg tabletIndicati ons:Cancer, metastatic to bone (CMS/HCC) Take 1 Tablet (50 mg) by mouth every 6 hours as needed for Pain. 15 Tablet 025 2024 Discontinued(R eorder) Active Problems Patient Care Coordination No te Formatting of this note migh t be different from the original. Primary Care: Sdi Barrios PA-C Referring Provider: Sid Barrios PA-C [id number] [place] [address] Other: Problem Noted Date Diagnosed Date ILD [...] Encounters Date Type Department Care Team Description 07/05/2024 Orders Only [facility] - [place] [address] [place] [address] Kiran Rivera MD 07/05/2024 Refill [facility] - [place] [address] [place] [address] Kiran Rivera MD 07/04/2024 9:15 AM CDT Office Visit [facility] - [place] [address] [place] [address] Kiran Rivera MD Pneumonia due to infectious organism, unspecified laterality, unspecified part of lung (Primary Dx); Invasive ductal carcinoma of breast, female, right (CMS/HCC); Cancer, metastatic to bone (CMS/HCC) 06/28/2024 External Device Data STL ABSTRACTION Provider, Abstract 06/28/2024 External Device Data STL ABSTRACTION Provider, Abstract 06/28/2024 External Device Data ST[facility] ABSTRACTION Provider, Abstract 06/22/2024 7:34 PM CDT - 06/28/2024 4:46 PM CDT Hospital Encounter [facility] [address] [place] [address] Maureen Raman MD Weitzel, MD Nona Kaye Anne, MD Burke, MD Susan Mayen Vanaja, MD Long, Atif Aguilar MD Acute respiratory failure with hypoxia ([facility]/HCC) Discharge Disposition: Home or Self Care 06/22/2024 Travel 06/20/2024 Orders Only [facility] - [place] [address] [place] [phone] Kiran Rivera MD Invasive ductal carcinoma of breast, female, right (CMS/HCC) 06/13/2024 Orders Only [facility] - [place] [address] [place] [address] Kiran Rivera MD 06/06/2024 Orders Only [facility] - [place] [address] [place] [address] Kiran Rivera MD Invasive ductal carcinoma of breast, female, right (CMS/HCC) 05/31/2024 8:30 AM CDT Office Visit [facility] [address] [place] [address] Kiran Rivera MD Invasive ductal carcinoma of breast, female, right (CMS/HCC) (Primary Dx) 05/31/2024 Orders Only [facility] - [place] [address] [place] [address] Kiran Rivera MD 05/25/2024 Orders Only [facility] - [place] [address] Kiran Rivera MD 05/24/2024 Telephone [facility] - [place] [address] [place] [address] Kiran Rivera MD Megace 05/23/2024 Orders Only [facility] - [place] [address] Kiran Rivera MD Invasive ductal carcinoma of breast, female, right (CMS/HCC) 05/18/2024 Orders Only [facility] - [place] [address] Kiran Rivera MD 05/17/2024 Orders Only [facility] - [place] [address] [place] [id number] Kiran Rivera MD 05/16/2024 Refill [facility] - [place] [address] [place] [id number] Kiran Rivera MD Acute diarrhea; Invasive ductal carcinoma of breast, female, right (CMS/HCC) 05/11/2024 Orders Only [facility] - [place] [address] [place] [phone] Kiran Rivera MD 05/10/2024 Orders Only [facility] - [place] [address] [place] [phone] Kiran Rivera MD Encounter for monitoring cyclophosphamide therapy (Primary Dx); Invasive ductal carcinoma of breast, female, right (CMS/HCC) 05/09/2024 Orders Only [facility] - [place] [address] [place] [phone] Kiran Rivera MD Invasive ductal carcinoma of breast, female, right (CMS/HCC) 05/04/2024 External Device Data STL ABSTRACTION Provider, Abstract 05/02/2024 8:45 AM PANTOMIMIST Office Visit [facility] - [place] [address] [place] [id number] Kiran Rivera MD Invasive ductal carcinoma of breast, female, right (CMS/HCC) (Primary Dx) 05/02/2024 Orders Only [facility] - [place] [address] [place] [address] Kiran Rivera MD 04/25/2024 Orders Only [facility] - [place] [address] [place] [address] Kiran Rivera MD Invasive ductal carcinoma of breast, female, right (CMS/HCC) 04/18/2024 Orders Only [facility] - [place] [address] [place] [address] Kiran Rivera MD Invasive ductal carcinoma of breast, female, right (CMS/HCC) (Primary Dx) 04/11/2024 Orders Only [facility] - [place] [address] [place] [address] Kiran Rivera MD Invasive ductal carcinoma of breast, female, right (CMS/HCC) from Last 3 Months Family History Medical [...] (162 lb) 07/04/2024 9:49 AM CDT Height 162.6 cm (5' 4 ) 06/22/2024 7:46 PM CDT Body Mass Index 27.81 06/22/2024 7:46 PM CDT Plan of Treatment Upcoming Encounters Date Type Department Care Team (Late st Contact Info) Description 07/28/2024 8:45 AM CDT Office Visit [facility] - [place] [address] [facility] [address] [place] [address] Kiran Rivera MD [address] [facility] [address] [place] [address] Health Maintenance Due Date Last Done Comments DTAP/TDAP/TD VACCINES (1 - Tdap) 12/05/1970 PNEUMOCOCCAL VACCINE 50+ YEA RS (1 of 2 - PCV) 12/05/1970 ZOSTER VACCINE (1 of 2) 12/05/1970 COLORECTAL SCREENING 12/05/1996 Colorectal Cancer Screening 12/05/1996 FIT-DNA Q 3 years 12/05/1996 FIT/FOBT Q 1 year 12/05/1996 Flex Sig/CT Colonography Q 5 years 12/05/1996 RSV VACCINE (60+ or ) (1 - Risk 60-74 years 1-dose series) 2011 OSTEOPOROSIS SCREENING 12/05/2016 BREAST CANCER SCREENING 01/21/2023 01/22/20, 01/03/2021, 06/14/2020, Additional history exists INFLUENZA VACCINE (#1) 2023 Medical Devices Implanted Type Area Director Skills Device Identifier Shelf Expiration Date Model / Serial / Lot Senior Water/Wastewater Engineer Clip Surgiclip Ii Talon 9.75in [id number] - [id number] Implanted:Qty: 1 on 03/31/2019 by Alissa Duarte MD at [facility] [place] [place] Clip Right: Breast [employer] - COVIDIEN 07/31/2023 [id number] / / [id number] Hemostatic Surgicel 2x14in 1950 - [id number] Implanted:Qty: 1 on 03/31/2019 by Alissa Duarte MD at [facility] [place] [place] Hemostatic Right: Breast [employer] 04/30/20231950 / / [id number] Hemostatic Surgicel 2x14in 1950 - [id number] Implanted:Qty: 1 on 03/31/2019 by Alissa Duarte MD at [facility] [place] [place] Hemostatic Right: Breast [employer] 04/30/20231950 / / [id number] Procedures Procedure Name Priority Date/Time Associated Diagnosis Comments TELEMETRY REPORT 07/05/2024 11:18 AM CDT BASIC METABOLIC PANEL Routine 07/04/2024 2:29 PM CDT COMPREHENSIVE METABOLIC PANEL Routine 07/04/2024 2:16 PM CDT PULSE OXIMETRY, WITH EXERCISE Pending Discharge 06/28/2024 3:20 PM CDT DIFFERENTIAL, MANUAL Routine 06/28/2024 6:43 AM CDT CBC WITH DIFFERENTIAL Routine 06/28/2024 6:43 AM CDT DIFFERENTIAL, MANUAL Routine 06/27/2024 6:39 AM CDT CBC WITH DIFFERENTIAL Routine 06/27/2024 6:39 AM CDT BASIC METABOLIC PANEL Routine 06/27/2024 4:26 AM CDT MRI BRAIN W WO CONTRAST Pending Discharge 06/27/2024 3:16 AM CDT DIFFERENTIAL, MANUAL Routine 06/26/2024 3:52 PM CDT CBC WITH DIFFERENTIAL Routine 06/26/2024 3:52 PM CDT BLOOD GAS ARTERIAL Routine 06/26/2024 3: 48 PM CDT BASIC METABOLIC PANEL Routine 06/26/2024 3:22 AM CDT DIFFERENTIAL, MANUAL Routine 06/25/2024 3:24 AM CDT C-REACTIVE PROTEIN Routine 06/25/2024 3: 24 AM CDT CBC WITH DIFFERENTIAL Routine 06/25/2024 3:24 AM CDT BASIC METABOLIC PANEL Routine 06/25/2024 3:24 AM CDT DIFFERENTIAL, MANUAL Routine 06/24/2024 5:49 AM CDT CBC WITH DIFFERENTIAL Routine 06/24/2024 5:49 AM CDT HEPATIC FUNCTION PANEL Routine 5:49 AM CDT BASIC METABOLIC PANEL Routine 06/24/2024 5:[address] ABDOMEN W WO CONTRAST Routine 06/23/2024 11:42 PM CDT ECHOCARDIOGRAM W/ CONTRAST AGENT Routine 06/23/2024 1:50 PM CDT US ABDOMEN LIMITED Routine 06/23/2024 9: 34 AM CDT BASIC METABOLIC PANEL Routine 06/23/2024 3:44 AM CDT XR CHEST PA OR AP 1 VW Stat 12:24 AM CDT EKG 12-LEAD Routine 06/23/2024 12:03 AM CDT BRAIN NATRIURETIC PEPTIDE, BNP OR PROBNP Stat 06/22/2024 10:16 PM CDT DIFFERENTIAL, MANUAL Stat 06/22/2024 10:16 PM CDT C-REACTIVE PROTEIN Stat 06/22/2024 10:16 PM CDT LACTIC ACID Stat 06/22/2024 10:16 PM CDT COMPREHENSIVE METABOLIC PANEL Stat 06/22/2024 10:16 PM CDT CBC WITH DIFFERENTIAL Stat 06/22/2024 10:16 PM CDT BLOOD GAS ARTERIAL Stat 06/22/2024 10:07 PM CDT COMPREHENSIVE METABOLIC PANEL Routine 05/30/2024 11:36 AM CDT CANCER ANTIGEN 15-3 Routine 05/24/2024 3 :[address] CHEST ABDOMEN PELVIS W CONT Routine 05/17/2024 2:40 PM CDT CBC MIXED CELL DIFFERENTIAL Routine 05/16/2024 11:43 AM CDT BASIC METABOLIC PANEL Routine 05/10/2024 9:54 AM CDT BASIC METABOLIC PANEL Routine 05/02/2024 2:38 PM PANTOMIMIST CBC WITH AUTODIFFERENTIAL Routine 05/02/2024 10:30 AM PANTOMIMIST MAMMO 3D RIAN DIAGNOSTIC BILAT W OR WO CAD Routine 01/21/2022 12:54 PM PANTOMIMIST Invasive ductal carcinoma of breast, female, right (CMS/HCC) Malignant neoplasm of axillary tail of right female breast, unspecified estrogen receptor status from Last 3 Months or Most Recently Relevant to Health Maintenance Results * TELEMETRY REPORT (07/05/2024 11:18 AM CDT) us Provider Scanning ECG ORDERABLES Final Result * BASIC METABOLIC PANEL (07/04/2024 2:29 PM CDT) Only the most recent of8 resultswithin the time period is included. Blood Kiran Rivera MD CHEMISTRY ORDERABLES Final Resu lt * COMPREHENSIVE METABOLIC PANEL (07/04/2024 2:16 PM CDT) Only the most recent of3 resultswithin the time period is included. Blood Kiran Rivera MD CHEMISTRY ORDERABLES Final Resu lt * PULSE OXIMETRY, WITH EXERCISE (06/28/2024 3:20 PM CDT) Narrative [facility] - 06/28/2024 3:20 PM CDT Delilah Greenwood RCP 06/28/2024 3:23 PM OXYGEN WALK STUDY Oxygen Walk Study performed per Medicare guidelines for severe lung disease with a SpO2 of 88% or less while on room air at rest or with exertion. Recommendation: Patient requires 0 Liters per minute of oxygen at rest and 0 Lpm with exertion to maintain SpO2 of greater or equal to 90%. Baseline at rest-RA Pre Test at Rest. With Activity With Activity Post Test at Rest. Oxygen Level: RA RA RA RA Heart Rate: 113 130 135 115 SpO2: 93% 92% 92% 93% Comments about Evaluation: STUDY GOOD FOR 48 HOURS. Pt walked approximately 50 ft with rollator. Pt was SOB but her HR goes up to 130's while walking, she stops and it goes down and then she can walk farther. Please call for any questions about this walk study. Mitzy López PA-C PFT ORDERABLES Final Resu lt [facility] [address] [place] [address] * (ABNORMAL) MANUAL DIFFERENTIAL (06/28/2024 6:43 AM CDT) Only the most recent of6 resultswithin the time period is included. SEGMENTED NEUTROPHILS 65 % 06/28/2024 8:05 AM T [facility] [employer] SERVICES - . [facility] LYMPHOCYTES RELATIVE 16(L) 43 - 53 % 06/28/2024 8:05 AM T [facility] [employer] [facility] MONOCYTES RELATIVE 9 % 06/28/2024 8:05 AM T [facility] [employer] SERVICES - . [place] METAMYELOCYTES RELATIVE 3(H) <=0 % 06/28/2024 8:05 AM T [facility] [employer] [facility] - . [place] MYELOCYTES - REL (DIFF) 7(H) <=0 % 06/28/2024 8:05 AM T [facility] [employer] [facility] NEUTROPHILS ABSOLUTE COUNT 5.98 1.90 - 7.00 K/uL 06/28/2024 8:05 AM T [facility] [employer] [facility] - . [place] LYMPHOCYTES ABSOLUTE 1.47 0.70 - 4.50 K/uL 06/28/2024 8:05 AM T [facility] [employer] SERVICES - [facility] MONOCYTES ABSOLUTE 0.83 0.10 - 1.30 K/uL 06/28/2024 8:05 AM T [facility] [employer] SERVICES - . [place] TOTAL CELLS COUNTED IN DIFF 100 06/28/2024 8:05 AM T [facility] [employer] [facility] PLATELET EST. Consistent w Count 06/28/2024 8:05 AM T [facility] [employer] [facility] ANISOCYTOSIS 1+ /hpf 06/28/2024 8:05 AM [facility] [employer] [facility] MACROCYTES 1+ /hpf 06/28/2024 8:05 AM [facility] [employer] [facility] POLYCHROMASIA 1+ /hpf 06/28/2024 8:05 AM T [facility] [employer] [facility] Blood Venipuncture / Unknown 06/28/2024 6:43 AM CDT 06/28/2024 6:53 AM CDT us Kia Castellano MD HEMATOLOGY ORDERABLES COM Final Result [facility] [employer] SERVICES [facility] CLIA# [id number] [address] [place] [address] * (ABNORMAL) CBC WITH DIFFERENTIAL (06/28/2024 6:43 AM CDT) Only the most recent of6 resultswithin the time period is included. [facility] WBC 9.2 4.0 - 9.8 K/uL 06/28/2024 7:09 AM [employer] [facility]OR[facility] SERVICES - [facility] NRBCS 9 % 06/28/2024 7:09 AM [employer] [facility] SERVICES [facility] RBC 2.32(L) 3.90 - 4.90 M/uL 06/28/2024 7:09 AM [employer] [facility]OR[facility] SERVICES [facility] HEMOGLOBIN 7.9(L) 11.8 - 14.8 g/dL 06/28/2024 7:09 AM [employer] [facility] SERVICES [facility] HEMATOCRIT 23.6(L) 35.5 - 44.0 % 06/28/2024 7:09 AM [employer] [facility] SERVICES [facility] MCV 101.7(H) 82.0 - 99.0 fL 06/28/2024 7:09 AM [employer] [facility] SERVICES [facility] MCH 34.1(H) 27.2 - 32.6 pg 06/28/2024 7:09 AM [employer] [facility]ORAT[facility] SERVICES [facility] MCHC 33.5 31.5 - 35.5 g/dL 06/28/2024 7:09 AM [employer] SERVICES [facility] RDW 19.8(H) 11.5 - 14.5 % 06/28/2024 7:09 AM [employer] LABORATORY SERVICES [facility] RDW-STDEV 69.5(H) 37.1 - 48.7 fL 06/28/2024 7:09 AM [employer] [facility] SERVICES [facility] PLATELETS 45(L) 140 - 350 K/uL 06/28/2024 7:09 AM [employer] [facility] SERVICES [facility] Comment:Persistent abnormal result. MPV 06/28/2024 7:09 AM [employer] [facility] Comment:Parameter not availa ble Blood Venipuncture / Unknown 06/28/2024 6:43 AM CDT 06/28/2024 6:53 AM CDT us Kia Castellano MD HEMATOLOGY ORDERABLES Edited Re sult - Final [facility] SERVICES [facility]# [id number] [address] [place] [address] * MRI BRAIN W WO CONTRAST (06/27/2024 3:16 AM CDT) Anatomical Region Laterality Modality Head Magnetic Resonan ce 06/27/2024 3:21 AM CDT Impressions 06/27/2024 8:46 AM CDT IMPRESSION: Suspected metastatic disease to upper cervical vertebrae and calvarium. Prominent leptomeningeal enhancement as described above. Otherwise no evidence of parenchymal brain metastases. Focal cortical chronic infarcts. Dictation Location 1 [facility] Narrative 06/27/2024 8:46 AM CDT MR IMAGING BRAIN WITH AND WITHOUT IV CONTRAST 06/27/2024 HISTORY: Brain metastases suspected. IV CONTRAST: 16 cc ProHance FINDINGS: Examination shows ventricles are midline without shift, dilatation or mass effect. Focal area of increased T2 signal is identified in the left occipital lobe. This shows no contrast enhancement or diffusion restriction. This is probably an old subcortical infarct. There is additional area of cystic encephalomalacic change in the right inferior frontal lobe deep to the inferior frontal sulcus. Punctate focus of increased T2 signal intensity is seen in right mid frontal white matter probably related to chronic small vessel ischemic changes. Normal flow void is identified in the major cerebral vessels visualized. Bilateral lens replacements are noted. Focal cortical T2 bright area is seen in the left inferior temporal lobe. This shows no enhancement or diffusion restriction. There is slight thickening of the leptomeninges and slight uniform increase in enhancement. This is nonspecific. This may be seen in low intracranial pressure, in postoperative state or in the case of leptomeningeal metastases. Patient is noted to have extensive marrow replacement in the upper cervical segments. There is probably also calvarial marrow replacement. Procedure Note Pradip Turcios MD - 06/27/2024 MR IMAGING BRAIN WITH AND WITHOUT IV CONTRAST 06/27/2024 HISTORY: Brain metastases suspected. IV CONTRAST: 16 cc ProHance FINDINGS: Examination shows ventricles are midline without shift, dilatation or mass effect. Focal area of increased T2 signal is identified in the left occipital lobe. This shows no contrast enhancement or diffusion restriction. This is probably an old subcortical infarct. There is additional area of cystic encephalomalacic change in the right inferior frontal lobe deep to the inferior frontal sulcus. Punctate focus of increased T2 signal intensity is seen in right mid frontal white matter probably related to chronic small vessel ischemic changes. Normal flow void is identified in the major cerebral vessels visualized. Bilateral lens replacements are noted. Focal cortical T2 bright area is seen in the left inferior temporal lobe. This shows no enhancement or diffusion restriction. There is slight thickening of the leptomeninges and slight uniform increase in enhancement. This is nonspecific. This may be seen in low intracranial pressure, in postoperative state or in the case of leptomeningeal metastases. Patient is noted to have extensive marrow replacement in the upper cervical segments. There is probably also calvarial marrow replacement. IMPRESSION: Suspected metastatic disease to upper cervical vertebrae and calvarium. Prominent leptomeningeal enhancement as described above. Otherwise no evidence of parenchymal brain metastases. Focal cortical chronic infarcts. Dictation Location 1 [facility] us Beatriz Davis MD MR ORDERABLES Final Result * (ABNORMAL) BLOOD GAS ARTERIAL (06/26/2024 3:48 PM CDT) Only the most recent of2 resultswithin the time period is included. PH ARTERIAL 7.48(H) 7.35 - 7.45 06/26/2024 4:05 PM T [facility] LABORATORY SERVICES [facility] PCO2 ARTERIAL 22(L) 35 - 48 mm Hg 06/26/2024 4:05 PM [facility] [facility]ATORY [facility] PO2 ARTERIAL 77(L) 83 - 108 mm Hg 06/26/2024 4:05 PM [facility] HCO3 ARTERIAL 16(L) 22 - 26 mmol/L 06/26/2024 4:05 PM [facility] BASE EXCESS ABG -6.0(L) -2.0 - 3.0 mmol/L 06/26/2024 4:05 PM CDT [facility] - [facility] O2 SAT EST ARTERIAL 96 95 - 99 % 06/26/2024 4:05 PM T [facility] P/F RATIO ARTERIAL 275 06/26/2024 4:05 PM T [facility] OXYGEN MODE Nasal Cannula 06/26/2024 4:05 PM T [facility] Comment:2 L FIO2 28.0 21.0 - 100.0 % 06/26/2024 4:05 PM T [facility] Blood, arterial Arterial / Unknown 2024 3:48 PM CDT 06/26/2024 3:52 PM CDT Addi Suero MD ABG ORDERABLES Final Result Performing Organization Address [facility] Co de Phone Number [facility] CLIA# [id number] [address] [place] [address] * (ABNORMAL) C-REACTIVE PROTEIN (06/25/2024 3:24 AM CDT) Only the most recent of2 resultswithin the time period is included. CRP 82.5(H) <5.0 mg/L 06/25/2024 4:15 AM CDT [facility] Blood Venipuncture / Unknown 06/25/2024 3:24 AM CDT 06/25/2024 3:34 AM CDT Addi Suero MD CHEMISTRY ORDERABLES F inal Result Performing Organization Address City/[facility]/ZIP Co de Phone Number [facility] CLIA# [id number] [address] [place] [address] * (ABNORMAL) HEPATIC FUNCTION PANEL (06/24/2024 5:49 AM CDT) TOTAL PROTEIN 5.8(L) 6.7 - 8.6 g/dL 06/24/2024 6:46 AM T [facility] ALBUMIN 3.1(L) 3.5 - 5.2 g/dL 06/24/2024 6:46 AM T [facility]. [facility] BILIRUBIN TOTAL 0.3 0.2 - 1.1 mg/dL 06/24/2024 6:46 AM [facility] BILIRUBIN DIRECT 0.2 <0.4 mg/dL 06/25/19 6:46 AM T [facility]. [facility] ALKALINE PHOSPHATASE 213(H) 35 - 104 U/L 06/24/2024 6:46 AM T [facility]. [facility] AST 154(H) <33 U/L 06/24/2024 6:46 AM [facility] ALT 25 <34 U/L 06/24/2024 6:46 AM [facility] Blood Venipuncture / Unknown 06/24/2024 5:49 AM CDT 06/24/2024 5:57 AM CDT Narrative [facility] - 06/24/2024 6:46 AM CDT Samples containing indocyanine green cause interferences on Total and/or Direct Bilirubin and must not be measured. us Kia Castellano MD CHEMISTRY ORDERABLES Final Resu lt [facility]# [id number] [address] [facility] [place] [address] * CT ABDOMEN W WO CONTRAST (06/23/2024 11:42 PM CDT) Anatomical Region Laterality Modality Abdomen Computed Tomogra phy 06/23/2024 11:2 6 PM CDT Impressions 06/24/2024 8:36 AM CDT IMPRESSION: 1. Extensive osseous metastasis. 2. Hypodense liver lesions, suspicious for metastasis. However, the evaluation is limited due to motion artifact. 3. A small hypodense lesion in the spleen. 4. A soft tissue structure in the left adnexa which could represent prominent left ovary or exophytic uterine fibroid. Correlation with pelvic ultrasound is recommended. DICTATION LOCATION: Location 1 - [facility] 06/24/2024 8:[address] ABDOMEN W WO CONTRAST WITH MULTIPLANAR REFORMATTED IMAGES DATE: 06/23/2024 11:42 PM CLINICAL INFORMATION: Liver lesions. COMPARISON: None PROCEDURE: Axial images were obtained through the abdomen without and with the administration of 90 cc intravenous contrast. Oral contrast was not administered. Multiplanar reformatted images were reviewed. The examination was performed with the adjustment of mA according to the patient size and/or the use of Iterative Reconstruction Technique. FINDINGS: The study is limited due to motion. LOWER CHEST: Small bilateral pleural effusion is identified. There is interstitial thickening. The right middle lobe focal pleural thickening is seen. LIVER: The liver is heterogeneously dense. Several faint hypodense lesions are seen in the liver. The most obvious mass is in segment 4 measuring 3 cm. A small faint hypodense lesion in segment 3 is seen measuring 1.5 cm. The evaluation is limited due to respiratory motion. GALLBLADDER: Surgically absent. BILE DUCTS: Within normal limits. PANCREAS: Within normal limits. SPLEEN: A small hypodense lesion in the medial aspect of the spleen is seen measuring 1.2 cm. ADRENALS: Within normal limits. KIDNEYS/URETERS: A hypodense lesion without enhancement is seen in the upper pole of the left kidney likely representing a cyst. It measures 2 cm. No hydronephrosis or hydroureter is seen. BLADDER: Within normal limits. REPRODUCTIVE ORGANS: The uterus is enlarged and contains multiple calcified fibroids. An oval soft tissue structure in the left adnexa is seen likely which could represent prominent left ovary or exophytic uterine fibroid. It measures 3.7 x 5.2 cm. BOWEL: No bowel obstruction is identified. PERITONEUM/RETROPERITONEUM: No ascites, free air or significant lymphadenopathy. VESSELS: Within normal limits. ABDOMINAL WALL: Within normal limits. BONES: Numerous sclerotic lesions involving the osseous bones are seen consistent with metastasis. Procedure Note Meaghan Kincaid MD - 06/24/2024 CT ABDOMEN W WO CONTRAST WITH MULTIPLANAR REFORMATTED IMAGES DATE: 06/23/2024 11:42 PM CLINICAL INFORMATION: Liver lesions. COMPARISON: None PROCEDURE: Axial images were obtained through the abdomen without and with the administration of 90 cc intravenous contrast. Oral contrast was not administered. Multiplanar reformatted images were reviewed. The examination was performed with the adjustment of mA according to the patient size and/or the use of Iterative Reconstruction Technique. FINDINGS: The study is limited due to motion. LOWER CHEST: Small bilateral pleural effusion is identified. There is interstitial thickening. The right middle lobe focal pleural thickening is seen. LIVER: The liver is heterogeneously dense. Several faint hypodense lesions are seen in the liver. The most obvious mass is in segment 4 measuring 3 cm. A small faint hypodense lesion in segment 3 is seen measuring 1.5 cm. The evaluation is limited due to respiratory motion. GALLBLADDER: Surgically absent. BILE DUCTS: Within normal limits. PANCREAS: Within normal limits. SPLEEN: A small hypodense lesion in the medial aspect of the spleen is seen measuring 1.2 cm. ADRENALS: Within normal limits. KIDNEYS/URETERS: A hypodense lesion without enhancement is seen in the upper pole of the left kidney likely representing a cyst. It measures 2 cm. No hydronephrosis or hydroureter is seen. BLADDER: Within normal limits. REPRODUCTIVE ORGANS: The uterus is enlarged and contains multiple calcified fibroids. An oval soft tissue structure in the left adnexa is seen likely which could represent prominent left ovary or exophytic uterine fibroid. It measures 3.7 x 5.2 cm. BOWEL: No bowel obstruction is identified. PERITONEUM/RETROPERITONEUM: No ascites, free air or significant lymphadenopathy. VESSELS: Within normal limits. ABDOMINAL WALL: Within normal limits. BONES: Numerous sclerotic lesions involving the osseous bones are seen consistent with metastasis. IMPRESSION: 1. Extensive osseous metastasis. 2. Hypodense liver lesions, suspicious for metastasis. However, the evaluation is limited due to motion artifact. 3. A small hypodense lesion in the spleen. 4. A soft tissue structure in the left adnexa which could represent prominent left ovary or exophytic uterine fibroid. Correlation with pelvic ultrasound is recommended. DICTATION LOCATION: Location [address] [place] [address] us Kia Castellano MD CT ORDERABLES Final Result * ECHOCARDIOGRAM W/ CONTRAST AGENT (06/23/2024 1:50 PM CDT) EJECTION FRACTION 52 INTERFACE SYSTEM 06/23/2024 1:23 PM CDT Narrative INTERFACE SYSTEM - 06/23/2024 4:51 PM CDT [address] [address] [email or web address] Transthoracic Echocardiogram Patient: Nita Robert Study ID: ECHO COMPLETE - Gender: F : 1950 Age: 73 Race: [facility] Height 162.6cm Study Date: 06/23/2024 Weight: 78.7kg Access. #: [id number] BP: *Referring Physician:Tami Cobos *Ordering Physician:Tami Cobos planned giving officer: Nurse: Indications: Pain. Congestive heart failure. STUDY CONCLUSIONS: SUMMARY: - Technically difficult study. - Left ventricle: The cavity size was normal. Wall thickness was increased in a pattern of mild LVH. Global systolic function is at the lower limits of normal. The estimated ejection fraction is 50-55%. For Epic reporting: the left ventricular ejection fraction is 52% . Diastolic function assessment consistent with abnormal left ventricular relaxation (grade 1 diastolic dysfunction). - Right ventricle: The cavity size is normal. Systolic function is normal. - Left atrium: The atrium is normal in size. - Tricuspid valve: Mild regurgitation. - Pulmonary arteries: The peak systolic pressure is 46mm Hg. - Inferior vena cava: The IVC is dilated. Respirophasic diameter changes are in the normal range (> 50%), consistent with elevated central venous pressure. - Pericardium: There is no pericardial effusion. Cardiac Anatomy: LEFT VENTRICLE: The cavity size was normal. Wall thickness was increased in a pattern of mild LVH. Global systolic function is at the lower limits of normal. The estimated ejection fraction is 50-55%. For Epic reporting: the left ventricular ejection fraction is 52% . Wall motion is normal; there are no regional wall motion abnormalities. Diastolic function assessment consistent with abnormal left ventricular relaxation (grade 1 diastolic dysfunction). AORTIC VALVE: Not well visualized. No significant regurgitation. The mean systolic gradient is 5mm Hg. The peak systolic gradient is 10mm Hg. The LVOT to aortic valve VTI ratio is 0.74. The valve area is 2.3cm^2. The ratio of LVOT to aortic valve peak velocity is 0.82. AORTA: Aortic root: The root is normal-sized. MITRAL VALVE: Structurally normal valve. No significant regurgitation. The mean diastolic gradient is 2mm Hg. The peak diastolic gradient is 4mm Hg. LEFT ATRIUM: The atrium is normal in size. RIGHT VENTRICLE: The cavity size is normal. Systolic function is normal. PULMONIC VALVE: Not well visualized. No significant regurgitation. TRICUSPID VALVE: Structurally normal valve. Mild regurgitation. RIGHT ATRIUM: The atrium was normal in size. SYSTEMIC VEINS: Inferior vena cava: The IVC is dilated. Respirophasic diameter changes are in the normal range (> 50%), consistent with elevated central venous pressure. PERICARDIUM: There is no pericardial effusion. Measurements Left ventricle Value Ref IVS, ED, LAX (H) 1.1 cm 0.6 - 0.9 GEGE, LAX (L) 3.3 cm 3.8 - 5.2 GEGE/bsa, LAX (L) 1.8 cm/m^2 2.3 - 3.1 GEGE, LAX chord (N) 4.5 cm 3.8 - 5.2 ESD, LAX chord (H) 3.8 cm 2.2 - 3.5 GEGE/bsa, LAX chord (N) 2.4 cm/m^2 2.3 - 3.1 ESD/bsa, LAX chord (N) 2.1 cm/m^2 1.3 - 2.1 FS, LAX chord (L) 16 % 27 - 45 IVS, ED (N) 0.9 cm 0.6 - 0.9 PW, ED (H) 1.0 cm 0.6 - 0.9 EDV, 2-p (H) 124 ml 46 - 106 ESV, 2-p (H) 60 ml 14 - 42 EF, 2-p (L) 52 % 54 - 74 SV, 2-p 64 ml --------- SV/bsa, 2-p 34.9 ml/m^2 --------- E', lat amy, TDI (L) 9.3 cm/sec >=10.0 E/e', lat amy, TDI (N) 9 <=13 E', med amy, TDI (N) 8.1 cm/sec >=7.0 E/e', med amy, TDI 10 --------- E', avg, TDI 8.7 cm/sec --------- E/e', avg, TDI (N) 10 <=14 LVOT Value Ref Diam, S 2.0 cm --------- Area 3.1 cm^2 --------- Peak luz marina, S 1.11 m/sec --------- VTI, S 20.1 cm --------- Right ventricle Value Ref GEGE minor ax, A4C base (H) 4.2 cm 2.5 - 4.1 GEGE minor ax, A4C mid (N) 2.4 cm 1.9 - 3.5 GEGE major ax, A4C (N) 6.9 cm 5.9 - 8.3 TAPSE, MM (N) 2.4 cm >=1.7 Pressure, S 49 mm Hg --------- S' lateral (N) 20.6 cm/sec >=9.5 Left atrium Value Ref AP dim, ES (N) 3.2 cm 2.7 - 3.8 AP dim index, ES (N) 1.7 cm/m^2 1.5 - 2.3 SI dim, A4C 5.4 cm --------- Area ES, A4C (N) 17 cm^2 <=20 Area/bsa ES, A4C 9.18 cm^2/m^2 --------- SI dim, A2C 5.1 cm --------- SI dim, shorter 5.1 cm --------- Vol, ES, 1-p A2C (N) 43 ml 22 - 52 Vol/bsa, ES, 1-p A2C (N) 23 ml/m^2 13 - 40 Vol, ES, 2-p 44 ml --------- Vol/bsa, ES, 2-p (N) 24 ml/m^2 16 - 34 LA/Ao root ratio 1 --------- Right atrium Value Ref SI dim, ES, A4C (N) 4.7 cm 3.4 - 5.3 SI dim/bsa, ES, A4C (N) 2.6 cm/m^2 1.9 - 3.1 Area, ES, A4C (N) 11 cm^2 10 - 18 Vol, ES, 1-p A4C 22 ml --------- Vol/bsa, ES, 1-p A4C (N) 12 ml/m^2 9 - 33 Aortic valve Value Ref Peak v, S 1.4 m/sec --------- Mean v, S 1.03 m/sec --------- VTI, S 27.3 cm --------- Mean grad, S 5 mm Hg --------- Peak grad, S 10 mm Hg --------- LVOT/AV, VTI ratio 0.74 --------- LORNA, VTI 2.3 cm^2 --------- LORNA/bsa, VTI 1.26 cm^2/m^2 --------- LVOT/AV, Vpeak ratio 0.82 --------- LORNA, Vmax 2.2 cm^2 --------- LORNA/bsa, Vmax 1.2 cm^2/m^2 --------- Mitral valve Value Ref Mean v, D 0.7 m/sec --------- Peak E 0.84 m/sec --------- Peak A 1.1 m/sec --------- Decel time 168 ms --------- PHT 49 ms --------- Mean grad, D 2 mm Hg --------- Peak grad, D 4 mm Hg --------- Peak E/A ratio 0.8 --------- A-VTI 17.0 cm --------- MVA, PHT 4.5 cm^2 --------- MVA/bsa, PHT 2.44 cm^2/m^2 --------- Pulmonic valve Value Ref Peak v, S 1.18 m/sec --------- Accel time 88 ms --------- Peak grad, S 6 mm Hg --------- Tricuspid valve Value Ref TR peak v (H) 3 m/sec <=2.8 Peak RV-RA grad, S 39 mm Hg --------- Aortic root Value Ref Root diam, 3.2 cm --------- Ascending aorta Value Ref AAo AP diam, S 2.8 cm --------- AAo AP diam/bsa, S 1.5 cm/m^2 --------- Pulmonary artery Value Ref Pressure, S 46 mm Hg --------- Systemic veins Value Ref Estimated RA pressure 10 mm Hg --------- Legend: (L) and (H) crista values outside specified reference range. (N) alatorre values inside specified reference range. Procedure data: Procedure information: A transthoracic echocardiogram was performed. Scanning was performed from the parasternal, apical, and subcostal acoustic windows. Intravenous contrast (Definity) was administered. Transthoracic echocardiogram. Complete 2D, complete spectral Doppler, and color Doppler. Birthdate: Patient birthdate: 1950. Age: Patient is 73year(s) old. Sex: gender: female. Height: 162.6cm. 64in. Weight: 78.7kg. 173.4lb. Body mass index: 29.7kg/m^2. Body surface area: 1.84m^2. Study date: Study date: 06/23/2024. Study time: 01:23 PM. Prepared and Electronically Authenticated Nelson Bolton [id number] Procedure Note Nelson Bolton MD - 06/23/[address] [address] [email or web address] Transthoracic Echocardiogram Patient: Nita Robert Study ID: ECHO COMPLETE - Gender: F : 1950 Age: 73 Race: LILLY Height 162.6cm Study Date: 06/23/2024 Weight: 78.7kg Access. #: [id number] BP: *Referring Physician:Tami Cobos *Ordering Physician:Tami Cobos planned giving officer: Nurse: Indications: Pain. Congestive heart failure. STUDY CONCLUSIONS: SUMMARY: - Technically difficult study. - Left ventricle: The cavity size was normal. Wall thickness was increasedin a pattern of mild LVH. Global systolic function is at the lower limitsof normal. The estimated ejection fraction is 50-55%. For Epic reporting:the left ventricular ejection fraction is 52% . Diastolic functionassessment consistent with abnormal left ventricular relaxation (grade 1diastolic dysfunction). - Right ventricle: The cavity size is normal. Systolic function isnormal. - Left atrium: The atrium is normal in size. - Tricuspid valve: Mild regurgitation. - Pulmonary arteries: The peak systolic pressure is 46mm Hg. - Inferior vena cava: The IVC is dilated. Respirophasic diameter changesare in the normal range (> 50%), consistent with elevated central venous pressure. - Pericardium: There is no pericardial effusion. Cardiac Anatomy: LEFT VENTRICLE: The cavity size was normal. Wall thickness was increasedin a pattern of mild LVH. Global systolic function is at the lower limits of normal. The estimated ejection fraction is 50-55%. For Epic reporting:the left ventricular ejection fraction is 52% . Wall motion is normal; thereare no regional wall motion abnormalities. Diastolic function assessment consistent with abnormal left ventricular relaxation (grade 1 diastolic dysfunction). AORTIC VALVE: Not well visualized. No significant regurgitation. Themean systolic gradient is 5mm Hg. The peak systolic gradient is 10mm Hg. TheLVOT to aortic valve VTI ratio is 0.74. The valve area is 2.3cm^2. The ratioof LVOT to aortic valve peak velocity is 0.82. AORTA: Aortic root: The root is normal-sized. MITRAL VALVE: Structurally normal valve. No significantregurgitation. The mean diastolic gradient is 2mm Hg. The peak diastolic gradient is 4mmHg. LEFT ATRIUM: The atrium is normal in size. RIGHT VENTRICLE: The cavity size is normal. Systolic function isnormal. PULMONIC VALVE: Not well visualized. No significant regurgitation. TRICUSPID VALVE: Structurally normal valve. Mild regurgitation. RIGHT ATRIUM: The atrium was normal in size. SYSTEMIC VEINS: Inferior vena cava: The IVC is dilated. Respirophasic diameter changesare in the normal range (> 50%), consistent with elevated central venouspressure. PERICARDIUM: There is no pericardial effusion. Measurements Left ventricle Value Ref IVS, ED, LAX (H) 1.1 cm 0.6 - 0.9 GEGE, LAX (L) 3.3 cm 3.8 - 5.2 GEGE/bsa, LAX (L) 1.8 cm/m^2 2.3 - 3.1 GEGE, LAX chord (N) 4.5 cm 3.8 - 5.2 ESD, LAX chord (H) 3.8 cm 2.2 - 3.5 GEGE/bsa, LAX chord (N) 2.4 cm/m^2 2.3 - 3.1 ESD/bsa, LAX chord (N) 2.1 cm/m^2 1.3 - 2.1 FS, LAX chord (L) 16 % 27 - 45 IVS, ED (N) 0.9 cm 0.6 - 0.9 PW, ED (H) 1.0 cm 0.6 - 0.9 EDV, 2-p (H) 124 ml 46 - 106 ESV, 2-p (H) 60 ml 14 - 42 EF, 2-p (L) 52 % 54 - 74 SV, 2-p 64 ml --------- SV/bsa, 2-p 34.9 ml/m^2 --------- E', lat amy, TDI (L) 9.3 cm/sec >=10.0 E/e', lat amy, TDI (N) 9 <=13 E', med amy, TDI (N) 8.1 cm/sec >=7.0 E/e', med amy, TDI 10 --------- E', avg, TDI 8.7 cm/sec --------- E/e', avg, TDI (N) 10 <=14 LVOT Value Ref Diam, S 2.0 cm --------- Area 3.1 cm^2 --------- Peak luz marina, S 1.11 m/sec --------- VTI, S 20.1 cm --------- Right ventricle Value Ref GEGE minor ax, A4C base (H) 4.2 cm 2.5 - 4.1 GGEE minor ax, A4C mid (N) 2.4 cm 1.9 - 3.5 GEGE major ax, A4C (N) 6.9 cm 5.9 - 8.3 TAPSE, MM (N) 2.4 cm >=1.7 Pressure, S 49 mm Hg --------- S' lateral (N) 20.6 cm/sec >=9.5 Left atrium Value Ref AP dim, ES (N) 3.2 cm 2.7 - 3.8 AP dim index, ES (N) 1.7 cm/m^2 1.5 - 2.3 SI dim, A4C 5.4 cm --------- Area ES, A4C (N) 17 cm^2 <=20 Area/bsa ES, A4C 9.18 cm^2/m^2 --------- SI dim, A2C 5.1 cm --------- SI dim, shorter 5.1 cm --------- Vol, ES, 1-p A2C (N) 43 ml 22 - 52 Vol/bsa, ES, 1-p A2C (N) 23 ml/m^2 13 - 40 Vol, ES, 2-p 44 ml --------- Vol/bsa, ES, 2-p (N) 24 ml/m^2 16 - 34 LA/Ao root ratio 1 --------- Right atrium Value Ref SI dim, ES, A4C (N) 4.7 cm 3.4 - 5.3 SI dim/bsa, ES, A4C (N) 2.6 cm/m^2 1.9 - 3.1 Area, ES, A4C (N) 11 cm^2 10 - 18 Vol, ES, 1-p A4C 22 ml --------- Vol/bsa, ES, 1-p A4C (N) 12 ml/m^2 9 - 33 Aortic valve Value Ref Peak v, S 1.4 m/sec --------- Mean v, S 1.03 m/sec --------- VTI, S 27.3 cm --------- Mean grad, S 5 mm Hg --------- Peak grad, S 10 mm Hg --------- LVOT/AV, VTI ratio 0.74 --------- LORNA, VTI 2.3 cm^2 --------- LORNA/bsa, VTI 1.26 cm^2/m^2 --------- LVOT/AV, Vpeak ratio 0.82 --------- LORNA, Vmax 2.2 cm^2 --------- LORNA/bsa, Vmax 1.2 cm^2/m^2 --------- Mitral valve Value Ref Mean v, D 0.7 m/sec --------- Peak E 0.84 m/sec --------- Peak A 1.1 m/sec --------- Decel time 168 ms --------- PHT 49 ms --------- Mean grad, D 2 mm Hg --------- Peak grad, D 4 mm Hg --------- Peak E/A ratio 0.8 --------- A-VTI 17.0 cm --------- MVA, PHT 4.5 cm^2 --------- MVA/bsa, PHT 2.44 cm^2/m^2 --------- Pulmonic valve Value Ref Peak v, S 1.18 m/sec --------- Accel time 88 ms --------- Peak grad, S 6 mm Hg --------- Tricuspid valve Value Ref TR peak v (H) 3 m/sec <=2.8 Peak RV-RA grad, S 39 mm Hg --------- Aortic root Value Ref Root diam, 3.2 cm --------- Ascending aorta Value Ref AAo AP diam, S 2.8 cm --------- AAo AP diam/bsa, S 1.5 cm/m^2 --------- Pulmonary artery Value Ref Pressure, S 46 mm Hg --------- Systemic veins Value Ref Estimated RA pressure 10 mm Hg --------- Legend: (L) and (H) crista values outside specified reference range. (N) alatorre values inside specified reference range. Procedure data: Procedure information: A transthoracic echocardiogram was performed.Scanning was performed from the parasternal, apical, and subcostal acousticwindows. Intravenous contrast (Definity) was administered. Transthoracic echocardiogram. Complete 2D, complete spectral Doppler, and colorDoppler. Birthdate: Patient birthdate: 1950. Age: Patient is 73year(s)old. Sex: gender: female. Height: 162.6cm. 64in. Weight: 78.7kg. 173.4lb. Body mass index: 29.7kg/m^2. Body surface area: 1.84m^2.Study date: Study date: 06/23/2024. Study time: 01:23 PM. Prepared and Electronically Authenticated Nelson Bolton [id number] us Tami Frias MD US ORDERABLES Final Resu lt INTERFACE SYSTEM Refer to clinic/hospital department * US ABDOMEN LIMITED (06/23/2024 9:34 AM CDT) Anatomical Region Laterality Modality Abdomen Ultrasound 06/23/2024 9:35 AM CDT Impressions 06/23/2024 9:52 AM CDT IMPRESSION: 1. There are multiple hypoechoic liver masses. These would be best characterized with liver protocol CT abdomen pelvis without/with contrast as MRI would likely be subject to significant respiratory motion artifact given the patient's current respiratory status. DICTATION LOCATION: Location 4 Narrative 06/23/2024 9:52 AM CDT EXAM: US ABDOMEN LIMITED DATE: 06/23/2024 9:34 AM HISTORY: Elevated LFT's. See Reason for Exam COMPARISON: No relevant prior studies are available. The diamond wheel edger notes a suboptimal examination due to labored breathing. FINDINGS: Pancreas: The visualized portions of the pancreas are homogeneous. The tail is obscured by bowel gas. Liver: Significant portions of the right hepatic lobe are obscured by acoustic shadowing. There are multiple small hypoechoic liver masses. For example in the left hepatic lobe one measures 1.9 x 2.1 cm. Portal and hepatic veins are patent without flow reversal Gallbladder: Cholecystectomy Bile ducts: The bile ducts are not dilated. The common bile duct measures 4 mm in maximal diameter. Right kidney: The right kidney measures 9.2 cm in length. There is no evidence of hydronephrosis or solid renal mass. Procedure Note Renzo Grover III, MD - 06/23/2024 EXAM: US ABDOMEN LIMITED DATE: 06/23/2024 9:34 AM HISTORY: Elevated LFT's. See Reason for Exam COMPARISON: No relevant prior studies are available. The diamond wheel edger notes a suboptimal examination due to labored breathing. FINDINGS: Pancreas: The visualized portions of the pancreas are homogeneous. The tail is obscured by bowel gas. Liver: Significant portions of the right hepatic lobe are obscured by acoustic shadowing. There are multiple small hypoechoic liver masses. For example in the left hepatic lobe one measures 1.9 x 2.1 cm. Portal and hepatic veins are patent without flow reversal Gallbladder: Cholecystectomy Bile ducts: The bile ducts are not dilated. The common bile duct measures 4 mm in maximal diameter. Right kidney: The right kidney measures 9.2 cm in length. There is no evidence of hydronephrosis or solid renal mass. IMPRESSION: 1. There are multiple hypoechoic liver masses. These would be best characterized with liver protocol CT abdomen pelvis without/with contrast as MRI would likely be subject to significant respiratory motion artifact given the patient's current respiratory status. DICTATION LOCATION: Location 4 us Tami Frias MD US ORDERABLES Final Resu lt * XR CHEST PA OR AP 1 VW (06/23/2024 12:24 AM CDT) Anatomical Region Laterality Modality Chest Computed Radiogr aphy 06/23/2024 12:2 5 AM CDT Impressions 06/23/2024 7:14 AM CDT IMPRESSION: 1. Diffuse bilateral mixed interstitial and airspace opacities, which could represent pulmonary edema or multifocal pneumonia. 2. Small bilateral pleural effusions. DICTATION LOCATION: Location [address] [place] [address] Narrative 06/23/2024 7:14 AM CDT EXAMINATION: XR CHEST PA OR AP 1 VW HISTORY: Resp Distress COMPARISON: CT chest performed at outside facility on 06/22/2024 FINDINGS: Diffuse bilateral mixed interstitial and airspace opacities are noted. There are small bilateral pleural effusions. No pneumothorax identified. The heart size is normal. Left internal jugular approach four catheter terminates in the superior vena cava. No acute osseous injury is identified. INCIDENTAL FINDINGS: None. Procedure Note Inder Chamorro MD - 06/23/2024 EXAMINATION: XR CHEST PA OR AP 1 VW HISTORY: Resp Distress COMPARISON: CT chest performed at outside facility on 06/22/2024 FINDINGS: Diffuse bilateral mixed interstitial and airspace opacities are noted. There are small bilateral pleural effusions. No pneumothorax identified. The heart size is normal. Left internal jugular approach four catheter terminates in the superior vena cava. No acute osseous injury is identified. INCIDENTAL FINDINGS: None. IMPRESSION: 1. Diffuse bilateral mixed interstitial and airspace opacities, which could represent pulmonary edema or multifocal pneumonia. 2. Small bilateral pleural effusions. DICTATION LOCATION: Location [address] [place] [address] us Tami Frias MD DIAGNOSTIC IMAGING ORDERAB LES Final Result * EKG 12-LEAD (06/23/2024 12:03 AM CDT) 06/23/2024 12:0 3 AM CDT Narrative INTERFACE SYSTEM - 06/23/2024 1:57 PM CDT [facility] [address] [place] [address] Test Date: 2024-06-23 Pat Name: NITA ROBERT Department: 58 Room: [address] [place] [address] Gender: F Police Detective: LUKE : 1950 Requested By: MAUREEN Torres Order Number: [id number] Reading MD: Nelson Bolton Measurements Intervals Willard Rate: 108 P: 64 VT: 140 QRS: 42 QRSD: 88 T: 52 QT: 331 QTc: 444 Interpretive Statements SINUS TACHYCARDIA LOW QRS VOLTAGE IN EXTREMITY LEADS Electronically Signed On 06-23-2024 13:57:41 CDT by Nelson Bolton Procedure Note Nelson Bolton MD - 06/23/2024 [facility] [address] [facility] [place] [address] Test Date: 2024-06-23 Pat Name: NITA ROBERT Department: 58 Room: [address] [place] [address] Gender: F Police Detective: LUKE : 1950 Requested By: MAUREEN Torres Order Number: [id number] Reading MD: Nelson Bolton Measurements Intervals Willard Rate: 108 P: 64 VT: 140 QRS: 42 QRSD: 88 T: 52 QT: 331 QTc: 444 Interpretive Statements SINUS TACHYCARDIA LOW QRS VOLTAGE IN EXTREMITY LEADS Electronically Signed On 06-23-2024 13:57:41 CDT by Nelson Bolotn us Tami Frias MD ECG ORDERABLES Final Resu lt INTERFACE SYSTEM Refer to clinic/hospital department * LACTIC ACID (06/22/2024 10:16 PM CDT) LACTIC ACID 2.0 <=2.0 mmol/L 06/22/2024 10:46 PM CDT [facility] Blood Venipuncture / Unknown 06/22/2024 10:16 PM CDT 06/22/2024 10:21 PM CDT us Tami Frias MD CHEMISTRY ORDERABLES Final Result Performing Organization Address [facility]/ZIP Co de Phone Number [facility] CLIA# [id number] [address] [place] [address] * (ABNORMAL) BRAIN NATRIURETIC PEPTIDE, BNP OR PROBNP (06/22/2024 10:16 PM CDT) PROBNP, N TERMINAL 38,820(H) <124 pg/mL 06/23/2024 12:43 AM CDT [facility] [employer] [facility] Comment: INTERPRETIVE COMMENT based on diagnosis: Diagnostic NT pro-BNP cutoffs for Heart Failure in the absence of renal failure is suggested for the following ranges <75 years: <125 pg/mL >=75 years: <450 pg/mL Exclusionary rule out cut-point for Acute Decompensated Heart Failure(ADHF) All ages: <300 pg/mL Diagnostic NT pro-BNP cutoffs for Acute Decompensated Heart Failure(ADHF) in the absence of renal failure is suggested for the following ages <50 years: > 450 pg/mL 50-75 years: > 900 pg/mL >75 years: >1800 pg/mL Blood Venipuncture / Unknown 06/22/2024 10:16 PM CDT 06/22/2024 10:22 PM CDT Tami Frias MD CHEMISTRY ORDERABLES Final Result [facility]# [id number] [address] [place] [address] * CANCER ANTIGEN 15-3 (05/24/2024 3:20 PM CDT) Blood Kiran Rivera MD CHEMISTRY ORDERABLES Final Resu lt * CT CHEST ABDOMEN PELVIS W CONT (05/17/2024 2:40 PM CDT) Anatomical Region Laterality Modality Chest Computed Tomogra phy Kiran Rivera MD CT ORDERABLES Final Result * CBC MIXED CELL DIFFERENTIAL (05/16/2024 11:43 AM CDT) Blood Kiran Rivera MD HEMATOLOGY ORDERABLES Final Res ult * CBC WITH AUTODIFFERENTIAL (05/02/2024 10:30 AM PANTOMIMIST) Blood us Kiran Rivera MD HEMATOLOGY ORDERABLES Final Res ult * MAMMO DIAG BILAT 3D RIAN W OR WO CAD (01/21/2022 12:54 PM PANTOMIMIST) Anatomical Region Laterality Modality Breast Bilateral Mammography 01/21/2022 12:5 4 PM PANTOMIMIST Impressions 01/21/2022 3:32 PM PANTOMIMIST IMPRESSION: No suspicious findings to suggest malignancy in either breast. Annual mammography is recommended. OVERALL FINAL ASSESSMENT: BI-RADS CATEGORY 2 - Benign findings. Narrative 01/21/2022 3:32 PM PANTOMIMIST EXAM: BILATERAL DIAGNOSTIC DIGITAL MAMMOGRAM WITH 3D [...] prior right breast conservation therapy. [facility] [place] TECHNIQUE: Mediolateral oblique, mediolateral and craniocaudal views [...] Maintenance Insurance MEDICARE PART A AND B [employer] OF [facility] MEDICARE PART A AND B [employer] [facility] [place] [address] RX [facility] Medicare Part D RX [employer] (INTERNAL) [facility] Advance Directives For more information, please contact: [phone] * Full Code (Latest Code Status on File) Date Activated Date Inactivated Comments 06/22/2024 9:59 PM 06/28/2024 6:46 PM * Full Code Date Activated Date Inactivated Comments 02/24/2023 10:43 PM 02/28/2023 7:18 PM Care Teams Driver'S License Examiner Relationship Specialty Start Date End Date Alexey Medrano DO [address] [facility] [address] [place] [address] PCP - General Internal Medicine 12/15/23
--- OUTSIDE RECORDS SUMMARY | 2024-07-05 18:40 | XMS_ITS | Continuity of Care Document ---
Author Organization [facility] Address [address] [place] [address] Phone Care Team Providers Care Television Schedule Coordinator Name Role Phone Connie Moctezuma Unavailable Unavailable Advance Directives Directive Yes / No Effective Date File Name No Information Encounters Encounter Description Practice Location Reason(s) For Visit Diagnoses Date Provider Providers Copied on Encounter Formerly [facility], [id number] [place] [address] [address], [place], [place], [id number], [place] tel:[phone] [facility] No Information 5-[address] Rhianna Rosales. [address] , [address], [place], [address], [place]. tel:[phone] Family History Family Member Type Diagnosis Age At Onset No Information Payers Payer name Insurance type Covered democrat ID Authoriza tion(s) No Information Social History [...]
--- OUTSIDE RECORDS SUMMARY | 2024-07-05 18:40 | XMS_ITS | Encounter Summary ---
Author Organization [facility] [employer] [facility] Address [address] [place] [address] Care Team Providers Care Licensed Tax Consultant Name Role Phone Alexey Medrano Primary Care Provider Encounter Details Date Type Department Care Team (Late Contact Info) Description 07/05/2024 Orders Only [facility] Oncology and Hematology - Walter [address] [email or web address] [address] [place] [address] Kiran Rivera MD [address] [facility] [address] [place] [address] Social History Tobacco Use Types [...] Description 07/28/2024 8:45 AM CDT Office Visit [facility] Oncology and Hematology - Walter [address] [facility] [address] [place] [address] Kiran Rivera MD [address] [facility] [address] [place] [address] documented as of this encounter Procedures Procedure Name Priority Date/Time Associated Diagnosis Comments BASIC METABOLIC PANEL Routine 07/04/2024 2:29 PM CDT COMPREHENSIVE METABOLIC PANEL Routine 07/04/2024 2:16 PM CDT documented in this encounter Results * BASIC METABOLIC PANEL (07/04/2024 2:29 PM CDT) Blood Kiran Rivera MD CHEMISTRY ORDERABLES Final Resu lt * COMPREHENSIVE METABOLIC PANEL (07/04/2024 2:16 PM CDT) Blood us Kiran Rivera MD CHEMISTRY ORDERABLES Final Resu lt documented in this encounter Visit Diagnoses Not on filedocumented in this encounter Care Teams Licensed Tax Consultant Relationship Specialty Start Date End Date Alexey Medrano DO [address] [place] [address] PCP - General Internal Medicine 12/15/23 documented as of this encounter
--- OUTSIDE RECORDS SUMMARY | 2024-07-05 18:40 | XMS_ITS | Encounter Summary ---
Author Organization [facility] Address [address] [place] [address] Care Team Providers Care Sorter Packer Name Role Phone Alexey Medrano Primary Care Provider [phone] Encounter Details Date Type Department Care Team (Late Contact Info) Description 03/23/2019 Chart Note [facility] Radiation Therapy [address] [place] [address] [place] [address] [place] [address] Social History Tobacco Use Types [...] Description 07/28/2024 8:45 AM CDT Office Visit [facility] Oncology and Hematology - Walter [address] [facility] [address] [place] [address] Kiran Rivera MD [address] [facility] [address] [place] [address] documented as of this encounter Visit Diagnoses Not on filedocumented in this encounter Care Teams Sorter Packer Relationship Specialty Start Date End Date Alexey Medrano DO [address] [facility] [address] [facility] [address] [place] [phone] PCP - General Internal Medicine 12/15/23 documented as of this encounter
--- OUTSIDE RECORDS SUMMARY | 2024-07-05 18:40 | XMS_ITS | Clinical Summary ---
Author Organization Unknown Care Team Providers Care Business Services Coordinator Name Role Phone AGUSTIN INTERSDOTTIETE, JEWISH Unavailable Latoya vailable RAMON PT, ABRIL Unavailable Unavailable Payers Payer Name Policy Type Policy Number Effective Date Expira tion Date MEDICARE.[facility] [id number] Problems Condition Name Condition Details Condition Category [...] 2022-03 00:00: 00 03-03 00:00 :00 No [id number] Unavailable Per instruc tions FOUR TIMES DAILY NEEDED Per instructio ns FOUR TIMES DAILY NEEDED (route: oral) Med Classific ation: Gastroint estinal Therapy Agents hydrocodone 5 mg-acetamin ophen 325 mg tablet 2022-03 00:00: 00 03-03 00:00 :00 No [id number] Unavailable Per instruc tions Per instructio ns (route: oral) Med Classific ation: Analgesic , Anti-infl ammatory or Antipyret ic acetaminoph en 325 mg tablet 03-02 00:00: 00 06-26 23:59 :00 No [id number] DISEASE MANAGEMENT Per instruc tions EVERY 6 HOURS Per instructio ns EVERY 6 HOURS (route: oral) Med Classific ation: Analgesic , Anti-infl ammatory or Antipyret ic cefuroxime axetil 500 mg tablet 03-02 00:00: 00 06-26 23:59 :00 No [id number] DISEASE MANAGEMENT Per instruc tions 2 TIMES DAILY Per instructio ns 2 TIMES DAILY (route: oral) Med Classific ation: Anti-Infe ctive Agents Florastor 250 mg capsule 03-02 00:00: 00 06-26 23:59 :00 No [id number] DISEASE MANAGEMENT Per instruc tions 2 TIMES DAILY Per instructio ns 2 TIMES DAILY (route: oral) Med Classific ation: Gastroint estinal Therapy Agents hydrocodone 5 mg-acetamin ophen 325 mg tablet 03-02 00:00: 00 06-26 23:59 :00 No [id number] DISEASE MANAGEMENT Per instruc tions EVERY 6 HOURS Per instructio ns EVERY 6 HOURS (route: oral) Med Classific ation: Analgesic , Anti-infl ammatory or Antipyret ic ibuprofen 600 mg tablet 03-02 00:00: 00 06-26 23:59 :00 No [id number] DISEASE MANAGEMENT Per instruc tions EVERY 6 HOURS Per instructio ns EVERY 6 HOURS (route: oral) Med Classific ation: Analgesic , Anti-infl ammatory or Antipyret ic Iron (ferrous sulfate) 325 mg (65 mg iron) tablet 03-02 00:00: 00 06-26 23:59 :00 No [id number] DISEASE MANAGEMENT Per instruc tions DAILY Per instructio ns DAILY (route: oral) Med Classific ation: Electroly te Balance-N utritiona l Products lapatinib 250 mg tablet 03-02 00:00: 00 06-26 23:59 :00 No [id number] DISEASE MANAGEMENT Per instruc tions DAILY Per instructio ns DAILY (route: oral) Med Classific ation: Antineopl astics letrozole 2.5 mg tablet 03-02 00:00: 00 06-26 23:59 :00 No [id number] DISEASE MANAGEMENT Per instruc tions DAILY Per instructio ns DAILY (route: oral) Med Classific ation: Antineopl astics lidocaine-p rilocaine 2.5 %-2.5 % topical cream 03-02 00:00: 00 06-26 23:59 :00 No [id number] DISEASE MANAGEMENT Per instruc tions NEEDED Per instructio ns NEEDED (route: topical) Med Classific ation: Dermatolo gical lisinopril 20 mg tablet 03-02 00:00: 00 06-26 23:59 :00 No [id number] DISEASE MANAGEMENT Per instruc tions DAILY Per instructio ns DAILY (route: oral) Med Classific ation: Cardiovas cular Therapy Agents Lomotil 2.5 mg-0.025 mg tablet 03-02 00:00: 00 06-26 23:59 :00 No [id number] DISEASE MANAGEMENT Per instruc tions 4 TIMES DAILY Per instructio ns 4 TIMES DAILY (route: oral) Med Classific ation: Gastroint estinal Therapy Agents ondansetron HCl 4 mg tablet 03-02 00:00: 00 06-26 23:59 :00 No [id number] DISEASE MANAGEMENT Per instruc tions NEEDED Per instructio ns NEEDED (route: oral) Med Classific ation: Gastroint estinal Therapy Agents doxycycline hyclate 100 mg capsule 03-20 00:00: 00 06-26 23:59 :00 No [id number] PROPHYLACTI C 1 capsule 2 TIMES DAILY [...] TO EVALUATE, OBSERVE / ASSESS, AND MONITOR, CUSTOMS PATROL OFFICER TO OBSERVE AND MONITOR, PROVIDE SKILLED THERAPEUTIC INTERVENTION, ACTIVITY, EDUCATION, AND TRAINING TO ADDRESS; [code = AGENCY MAY PERFORM A RESUMPTION OF CARE VISIT FOLLOWING ANY HOSPITAL ADMISSION. PT TO EVALUATE, OBSERVE / ASSESS, AND MONITOR, CUSTOMS PATROL OFFICER TO OBSERVE AND MONITOR, PROVIDE SKILLED THERAPEUTIC INTERVENTION, ACTIVITY, EDUCATION, AND TRAINING TO ADDRESS;] Future Scheduled Test SIT TO/FRO M STAND TRANSFERS (PT/CUSTOMS PATROL OFFICER) [code = SIT TO/FROM STAND TRANSFERS (PT/CUSTOMS PATROL OFFICER)] Future Scheduled Test PT/CUSTOMS PATROL OFFICER TO PROVIDE GAIT TRAINING FOR IMPROVED MOBILITY AND /OR TO NORMALIZE GAIT PATTERN [code = PT/CUSTOMS PATROL OFFICER TO PROVIDE GAIT TRAINING FOR IMPROVED MOBILITY AND /OR TO NORMALIZE GAIT PATTERN] Future Scheduled Test PT/CUSTOMS PATROL OFFICER TO PROVIDE STAIR TRAINING [code = PT/CUSTOMS PATROL OFFICER TO PROVIDE STAIR TRAINING] Future Scheduled Test NEUROMUSCU LAR RE-EDUCATION / BALANCE / POSTURAL CONTROL (PT) [code = NEUROMUSCULAR RE-EDUCATION / BALANCE / POSTURAL CONTROL (PT)] Future Scheduled Test THERAPEUTI C EXERCISES AND ESTABLISHING A HOME EXERCISE PROGRAM (PT/CUSTOMS PATROL OFFICER) [code = THERAPEUTIC EXERCISES AND ESTABLISHING A HOME EXERCISE PROGRAM (PT/CUSTOMS PATROL OFFICER)] Future Scheduled Test PT/CUSTOMS PATROL OFFICER TO IDENTIFY FALL RISK FACTORS; EDUCATE THE PATIENT/CAREGIVER ON WAYS TO REDUCE FALL RISK FACTORS AND ESTABLISH HOME EXERCISE PROGRAM TO MINIMIZE FALL RISK. MAY TEACH THE PATIENT FLOOR RECOVERY WHEN CLINICALLY APPROPRIATE [code = PT/CUSTOMS PATROL OFFICER TO IDENTIFY FALL RISK FACTORS; EDUCATE THE PATIENT/CAREGIVER ON WAYS TO REDUCE FALL RISK FACTORS AND ESTABLISH HOME EXERCISE PROGRAM TO MINIMIZE FALL RISK. MAY TEACH THE PATIENT FLOOR RECOVERY WHEN CLINICALLY APPROPRIATE] Future Scheduled Test PT / CUSTOMS PATROL OFFICER T O EDUCATE ON HYPERTENSION SELF-MANAGEMENT [code = PT / CUSTOMS PATROL OFFICER TO EDUCATE ON HYPERTENSION SELF-MANAGEMENT] Future Scheduled Test PT / CUSTOMS PATROL OFFICER T O EDUCATE ON PNEUMONIA / ASPIRATION PNEUMONIA SELF-MANAGEMENT. [code = PT / CUSTOMS PATROL OFFICER TO EDUCATE ON PNEUMONIA / ASPIRATION PNEUMONIA SELF-MANAGEMENT.] Future Scheduled Test OCCUPATION AL THERAPIST TO EVALUATE FOR SAFETY WITH AFLS [code = OCCUPATIONAL THERAPIST TO EVALUATE FOR SAFETY WITH AFLS] Future Scheduled Test SPEECH THE RAPIST TO EVALUATE FOR MEMORY AND COGNITION [code = SPEECH THERAPIST TO EVALUATE FOR MEMORY AND COGNITION] Future Scheduled Test PT / CUSTOMS PATROL OFFICER T O INSTRUCT PATIENT/CAREGIVER ON RISK FOR HOSPITALIZATION/EMERGENCY ROOM VISITS, TEACH SIGNS AND SYMPTOMS THAT PUT PATIENT AT RISK, WHEN TO NOTIFY NURSE/PHYSICIAN OF COMPLICATIONS/DECLINE, AND WHEN TO CALL 911. [code = PT / CUSTOMS PATROL OFFICER TO INSTRUCT PATIENT/CAREGIVER ON RISK FOR HOSPITALIZATION/EMERGENCY ROOM VISITS, TEACH SIGNS AND SYMPTOMS THAT PUT PATIENT AT RISK, WHEN TO NOTIFY NURSE/PHYSICIAN OF COMPLICATIONS/DECLINE, AND WHEN TO CALL 911.] Future Scheduled Test PT / CUSTOMS PATROL OFFICER M AY EDUCATE ON PAIN MANAGEMENT CLINICALLY INDICATED, INCLUDING NON-PHARMACOLOGICAL PAIN REDUCTION TECHNIQUES [code = PT / CUSTOMS PATROL OFFICER MAY EDUCATE ON PAIN MANAGEMENT CLINICALLY INDICATED, [...] End Date/Time Encounter Type Admission Type Attending [facility] Care Department Encounter ID Discharge Date Discharge Status Discharge Condition Discharge Reason Percent Goals Met 2024-06-30 00:00:00 2024-08-28 00:00:00 Outpatient MERLY Baker [facility] [id number]
--- OUTSIDE RECORDS SUMMARY | 2024-07-05 21:06 | XMS_ITS | Encounter Summary ---
Author Organization [facility]3] [employer] [facility] Address [address] [place] [address] Care Team Providers Care Cataloging Assistant Name Role Phone Alexey Medrano Primary Care Provider [phone] Encounter Details Date Type Department Care Team (Late Contact Info) Description 07/05/2024 Orders Only [facility] Oncology and Hematology - Walter [address] [facility] [address] [place] [address] Kiran Rivera MD [address] [facility] [address] [place] [address] Social History Tobacco Use Types [...] Description 07/28/2024 8:45 AM CDT Office Visit [facility] Oncology and Hematology - Walter [address] [facility] [address] [place] [address] Kiran Rivera MD [address] [facility] [address] [place] [address] documented as of this encounter [...] on filedocumented in this encounter Care Teams Cataloging Assistant Relationship Specialty Start Date End Date Alexey Medrano DO [address] [place] [address] PCP - General Internal Medicine 12/15/23 documented as of this encounter
--- OUTSIDE RECORDS SUMMARY | 2024-07-05 21:06 | XMS_ITS | Clinical Summary ---
Author Organization Unknown Care Team Providers Care Configuration Management Specialist Name Role Phone AGUSTIN INTERSDOTTIETE, BAHAI Unavailable Latoya vailable RAMON PT, ABRIL Unavailable Unavailable Payers Payer Name Policy Type Policy Number Effective Date Expira tion Date [facility]IC[facility] [id number] Problems Condition Name Condition Details Condition Category [...] 2022-03 00:00: 00 03-03 00:00 :00 No [id number] Unavailable Per instruc tions FOUR TIMES DAILY NEEDED Per instructio ns FOUR TIMES DAILY NEEDED (route: oral) Med Classific ation: Gastroint estinal Therapy Agents hydrocodone 5 mg-acetamin ophen 325 mg tablet 2022-03 00:00: 00 03-03 00:00 :00 No [id number] Unavailable Per instruc tions Per instructio ns (route: oral) Med Classific ation: Analgesic , Anti-infl ammatory or Antipyret ic acetaminoph en 325 mg tablet 03-02 00:00: 00 06-26 23:59 :00 No [id number] DISEASE MANAGEMENT Per instruc tions EVERY 6 HOURS Per instructio ns EVERY 6 HOURS (route: oral) Med Classific ation: Analgesic , Anti-infl ammatory or Antipyret ic cefuroxime axetil 500 mg tablet 03-02 00:00: 00 06-26 23:59 :00 No [id number] DISEASE MANAGEMENT Per instruc tions 2 TIMES DAILY Per instructio ns 2 TIMES DAILY (route: oral) Med Classific ation: Anti-Infe ctive Agents Florastor 250 mg capsule 03-02 00:00: 00 06-26 23:59 :00 No [id number] DISEASE MANAGEMENT Per instruc tions 2 TIMES DAILY Per instructio ns 2 TIMES DAILY (route: oral) Med Classific ation: Gastroint estinal Therapy Agents hydrocodone 5 mg-acetamin ophen 325 mg tablet 03-02 00:00: 00 06-26 23:59 :00 No [id number] DISEASE MANAGEMENT Per instruc tions EVERY 6 HOURS Per instructio ns EVERY 6 HOURS (route: oral) Med Classific ation: Analgesic , Anti-infl ammatory or Antipyret ic ibuprofen 600 mg tablet 03-02 00:00: 00 06-26 23:59 :00 No [id number] DISEASE MANAGEMENT Per instruc tions EVERY 6 HOURS Per instructio ns EVERY 6 HOURS (route: oral) Med Classific ation: Analgesic , Anti-infl ammatory or Antipyret ic Iron (ferrous sulfate) 325 mg (65 mg iron) tablet 03-02 00:00: 00 06-26 23:59 :00 No [id number] DISEASE MANAGEMENT Per instruc tions DAILY Per instructio ns DAILY (route: oral) Med Classific ation: Electroly te Balance-N utritiona l Products lapatinib 250 mg tablet 03-02 00:00: 00 06-26 23:59 :00 No [id number] DISEASE MANAGEMENT Per instruc tions DAILY Per instructio ns DAILY (route: oral) Med Classific ation: Antineopl astics letrozole 2.5 mg tablet 03-02 00:00: 00 06-26 23:59 :00 No [id number] DISEASE MANAGEMENT Per instruc tions DAILY Per instructio ns DAILY (route: oral) Med Classific ation: Antineopl astics lidocaine-p rilocaine 2.5 %-2.5 % topical cream 03-02 00:00: 00 06-26 23:59 :00 No [id number] DISEASE MANAGEMENT Per instruc tions NEEDED Per instructio ns NEEDED (route: topical) Med Classific ation: Dermatolo gical lisinopril 20 mg tablet 03-02 00:00: 00 06-26 23:59 :00 No [id number] DISEASE MANAGEMENT Per instruc tions DAILY Per instructio ns DAILY (route: oral) Med Classific ation: Cardiovas cular Therapy Agents Lomotil 2.5 mg-0.025 mg tablet 03-02 00:00: 00 06-26 23:59 :00 No [id number] DISEASE MANAGEMENT Per instruc tions 4 TIMES DAILY Per instructio ns 4 TIMES DAILY (route: oral) Med Classific ation: Gastroint estinal Therapy Agents ondansetron HCl 4 mg tablet 03-02 00:00: 00 06-26 23:59 :00 No [id number] DISEASE MANAGEMENT Per instruc tions NEEDED Per instructio ns NEEDED (route: oral) Med Classific ation: Gastroint estinal Therapy Agents doxycycline hyclate 100 mg capsule 03-20 00:00: 00 06-26 23:59 :00 No [id number] PROPHYLACTI C 1 capsule 2 TIMES DAILY [...] TO EVALUATE, OBSERVE / ASSESS, AND MONITOR, ORTHODONTIC ASSISTANT TO OBSERVE AND MONITOR, PROVIDE SKILLED THERAPEUTIC INTERVENTION, ACTIVITY, EDUCATION, AND TRAINING TO ADDRESS; [code = AGENCY MAY PERFORM A RESUMPTION OF CARE VISIT FOLLOWING ANY HOSPITAL ADMISSION. PT TO EVALUATE, OBSERVE / ASSESS, AND MONITOR, ORTHODONTIC ASSISTANT TO OBSERVE AND MONITOR, PROVIDE SKILLED THERAPEUTIC INTERVENTION, ACTIVITY, EDUCATION, AND TRAINING TO ADDRESS;] Future Scheduled Test SIT TO/FRO M STAND TRANSFERS (PT/ORTHODONTIC ASSISTANT) [code = SIT TO/FROM STAND TRANSFERS (PT/ORTHODONTIC ASSISTANT)] Future Scheduled Test PT/ORTHODONTIC ASSISTANT TO PROVIDE GAIT TRAINING FOR IMPROVED MOBILITY AND /OR TO NORMALIZE GAIT PATTERN [code = PT/ORTHODONTIC ASSISTANT TO PROVIDE GAIT TRAINING FOR IMPROVED MOBILITY AND /OR TO NORMALIZE GAIT PATTERN] Future Scheduled Test PT/ORTHODONTIC ASSISTANT TO PROVIDE STAIR TRAINING [code = PT/ORTHODONTIC ASSISTANT TO PROVIDE STAIR TRAINING] Future Scheduled Test NEUROMUSCU LAR RE-EDUCATION / BALANCE / POSTURAL CONTROL (PT) [code = NEUROMUSCULAR RE-EDUCATION / BALANCE / POSTURAL CONTROL (PT)] Future Scheduled Test THERAPEUTI C EXERCISES AND ESTABLISHING A HOME EXERCISE PROGRAM (PT/ORTHODONTIC ASSISTANT) [code = THERAPEUTIC EXERCISES AND ESTABLISHING A HOME EXERCISE PROGRAM (PT/ORTHODONTIC ASSISTANT)] Future Scheduled Test PT/ORTHODONTIC ASSISTANT TO IDENTIFY FALL RISK FACTORS; EDUCATE THE PATIENT/CAREGIVER ON WAYS TO REDUCE FALL RISK FACTORS AND ESTABLISH HOME EXERCISE PROGRAM TO MINIMIZE FALL RISK. MAY TEACH THE PATIENT FLOOR RECOVERY WHEN CLINICALLY APPROPRIATE [code = PT/ORTHODONTIC ASSISTANT TO IDENTIFY FALL RISK FACTORS; EDUCATE THE PATIENT/CAREGIVER ON WAYS TO REDUCE FALL RISK FACTORS AND ESTABLISH HOME EXERCISE PROGRAM TO MINIMIZE FALL RISK. MAY TEACH THE PATIENT FLOOR RECOVERY WHEN CLINICALLY APPROPRIATE] Future Scheduled Test PT / ORTHODONTIC ASSISTANT T O EDUCATE ON HYPERTENSION SELF-MANAGEMENT [code = PT / ORTHODONTIC ASSISTANT TO EDUCATE ON HYPERTENSION SELF-MANAGEMENT] Future Scheduled Test PT / ORTHODONTIC ASSISTANT T O EDUCATE ON PNEUMONIA / ASPIRATION PNEUMONIA SELF-MANAGEMENT. [code = PT / ORTHODONTIC ASSISTANT TO EDUCATE ON PNEUMONIA / ASPIRATION PNEUMONIA SELF-MANAGEMENT.] Future Scheduled Test OCCUPATION AL THERAPIST TO EVALUATE FOR SAFETY WITH AFLS [code = OCCUPATIONAL THERAPIST TO EVALUATE FOR SAFETY WITH AFLS] Future Scheduled Test SPEECH THE RAPIST TO EVALUATE FOR MEMORY AND COGNITION [code = SPEECH THERAPIST TO EVALUATE FOR MEMORY AND COGNITION] Future Scheduled Test PT / ORTHODONTIC ASSISTANT T O INSTRUCT PATIENT/CAREGIVER ON RISK FOR HOSPITALIZATION/EMERGENCY ROOM VISITS, TEACH SIGNS AND SYMPTOMS THAT PUT PATIENT AT RISK, WHEN TO NOTIFY NURSE/PHYSICIAN OF COMPLICATIONS/DECLINE, AND WHEN TO CALL 911. [code = PT / ORTHODONTIC ASSISTANT TO INSTRUCT PATIENT/CAREGIVER ON RISK FOR HOSPITALIZATION/EMERGENCY ROOM VISITS, TEACH SIGNS AND SYMPTOMS THAT PUT PATIENT AT RISK, WHEN TO NOTIFY NURSE/PHYSICIAN OF COMPLICATIONS/DECLINE, AND WHEN TO CALL 911.] Future Scheduled Test PT / ORTHODONTIC ASSISTANT M AY EDUCATE ON PAIN MANAGEMENT CLINICALLY INDICATED, INCLUDING NON-PHARMACOLOGICAL PAIN REDUCTION TECHNIQUES [code = PT / ORTHODONTIC ASSISTANT MAY EDUCATE ON PAIN MANAGEMENT CLINICALLY INDICATED, [...] End Date/Time Encounter Type Admission Type Attending [facility] Care Department Encounter ID Discharge Date Discharge Status Discharge Condition Discharge Reason Percent Goals Met 2024-06-30 00:00:00 2024-08-28 00:00:00 Outpatient MERLY Baker [facility] [id number]
--- OUTSIDE RECORDS SUMMARY | 2024-07-05 21:06 | XMS_ITS | Clinical Summary ---
Author Organization Unknown Care Team Providers Care Artist Relationship Manager Name Role Phone AGUSTIN INTERSDOTTIETE, BAPTIST Unavailable Latoya vailable RAMON PT, ABRIL Unavailable Unavailable Payers Payer Name Policy Type Policy Number Effective Date Expira tion Date [facility]IC[facility] [id number] Problems Condition Name Condition Details Condition Category [...] 2022-03 00:00: 00 03-03 00:00 :00 No [id number] Unavailable Per instruc tions FOUR TIMES DAILY NEEDED Per instructio ns FOUR TIMES DAILY NEEDED (route: oral) Med Classific ation: Gastroint estinal Therapy Agents hydrocodone 5 mg-acetamin ophen 325 mg tablet 2022-03 00:00: 00 03-03 00:00 :00 No [id number] Unavailable Per instruc tions Per instructio ns (route: oral) Med Classific ation: Analgesic , Anti-infl ammatory or Antipyret ic acetaminoph en 325 mg tablet 03-02 00:00: 00 06-26 23:59 :00 No [id number] DISEASE MANAGEMENT Per instruc tions EVERY 6 HOURS Per instructio ns EVERY 6 HOURS (route: oral) Med Classific ation: Analgesic , Anti-infl ammatory or Antipyret ic cefuroxime axetil 500 mg tablet 03-02 00:00: 00 06-26 23:59 :00 No [id number] DISEASE MANAGEMENT Per instruc tions 2 TIMES DAILY Per instructio ns 2 TIMES DAILY (route: oral) Med Classific ation: Anti-Infe ctive Agents Florastor 250 mg capsule 03-02 00:00: 00 06-26 23:59 :00 No [id number] DISEASE MANAGEMENT Per instruc tions 2 TIMES DAILY Per instructio ns 2 TIMES DAILY (route: oral) Med Classific ation: Gastroint estinal Therapy Agents hydrocodone 5 mg-acetamin ophen 325 mg tablet 03-02 00:00: 00 06-26 23:59 :00 No [id number] DISEASE MANAGEMENT Per instruc tions EVERY 6 HOURS Per instructio ns EVERY 6 HOURS (route: oral) Med Classific ation: Analgesic , Anti-infl ammatory or Antipyret ic ibuprofen 600 mg tablet 03-02 00:00: 00 06-26 23:59 :00 No [id number] DISEASE MANAGEMENT Per instruc tions EVERY 6 HOURS Per instructio ns EVERY 6 HOURS (route: oral) Med Classific ation: Analgesic , Anti-infl ammatory or Antipyret ic Iron (ferrous sulfate) 325 mg (65 mg iron) tablet 03-02 00:00: 00 06-26 23:59 :00 No [id number] DISEASE MANAGEMENT Per instruc tions DAILY Per instructio ns DAILY (route: oral) Med Classific ation: Electroly te Balance-N utritiona l Products lapatinib 250 mg tablet 03-02 00:00: 00 06-26 23:59 :00 No [id number] DISEASE MANAGEMENT Per instruc tions DAILY Per instructio ns DAILY (route: oral) Med Classific ation: Antineopl astics letrozole 2.5 mg tablet 03-02 00:00: 00 06-26 23:59 :00 No [id number] DISEASE MANAGEMENT Per instruc tions DAILY Per instructio ns DAILY (route: oral) Med Classific ation: Antineopl astics lidocaine-p rilocaine 2.5 %-2.5 % topical cream 03-02 00:00: 00 06-26 23:59 :00 No [id number] DISEASE MANAGEMENT Per instruc tions NEEDED Per instructio ns NEEDED (route: topical) Med Classific ation: Dermatolo gical lisinopril 20 mg tablet 03-02 00:00: 00 06-26 23:59 :00 No [id number] DISEASE MANAGEMENT Per instruc tions DAILY Per instructio ns DAILY (route: oral) Med Classific ation: Cardiovas cular Therapy Agents Lomotil 2.5 mg-0.025 mg tablet 03-02 00:00: 00 06-26 23:59 :00 No [id number] DISEASE MANAGEMENT Per instruc tions 4 TIMES DAILY Per instructio ns 4 TIMES DAILY (route: oral) Med Classific ation: Gastroint estinal Therapy Agents ondansetron HCl 4 mg tablet 03-02 00:00: 00 06-26 23:59 :00 No [id number] DISEASE MANAGEMENT Per instruc tions NEEDED Per instructio ns NEEDED (route: oral) Med Classific ation: Gastroint estinal Therapy Agents doxycycline hyclate 100 mg capsule 03-20 00:00: 00 06-26 23:59 :00 No [id number] PROPHYLACTI C 1 capsule 2 TIMES DAILY [...] TO EVALUATE, OBSERVE / ASSESS, AND MONITOR, HEALTHCARE LIAISON TO OBSERVE AND MONITOR, PROVIDE SKILLED THERAPEUTIC INTERVENTION, ACTIVITY, EDUCATION, AND TRAINING TO ADDRESS; [code = AGENCY MAY PERFORM A RESUMPTION OF CARE VISIT FOLLOWING ANY HOSPITAL ADMISSION. PT TO EVALUATE, OBSERVE / ASSESS, AND MONITOR, HEALTHCARE LIAISON TO OBSERVE AND MONITOR, PROVIDE SKILLED THERAPEUTIC INTERVENTION, ACTIVITY, EDUCATION, AND TRAINING TO ADDRESS;] Future Scheduled Test SIT TO/FRO M STAND TRANSFERS (PT/HEALTHCARE LIAISON) [code = SIT TO/FROM STAND TRANSFERS (PT/HEALTHCARE LIAISON)] Future Scheduled Test PT/HEALTHCARE LIAISON TO PROVIDE GAIT TRAINING FOR IMPROVED MOBILITY AND /OR TO NORMALIZE GAIT PATTERN [code = PT/HEALTHCARE LIAISON TO PROVIDE GAIT TRAINING FOR IMPROVED MOBILITY AND /OR TO NORMALIZE GAIT PATTERN] Future Scheduled Test PT/HEALTHCARE LIAISON TO PROVIDE STAIR TRAINING [code = PT/HEALTHCARE LIAISON TO PROVIDE STAIR TRAINING] Future Scheduled Test NEUROMUSCU LAR RE-EDUCATION / BALANCE / POSTURAL CONTROL (PT) [code = NEUROMUSCULAR RE-EDUCATION / BALANCE / POSTURAL CONTROL (PT)] Future Scheduled Test THERAPEUTI C EXERCISES AND ESTABLISHING A HOME EXERCISE PROGRAM (PT/HEALTHCARE LIAISON) [code = THERAPEUTIC EXERCISES AND ESTABLISHING A HOME EXERCISE PROGRAM (PT/HEALTHCARE LIAISON)] Future Scheduled Test PT/HEALTHCARE LIAISON TO IDENTIFY FALL RISK FACTORS; EDUCATE THE PATIENT/CAREGIVER ON WAYS TO REDUCE FALL RISK FACTORS AND ESTABLISH HOME EXERCISE PROGRAM TO MINIMIZE FALL RISK. MAY TEACH THE PATIENT FLOOR RECOVERY WHEN CLINICALLY APPROPRIATE [code = PT/HEALTHCARE LIAISON TO IDENTIFY FALL RISK FACTORS; EDUCATE THE PATIENT/CAREGIVER ON WAYS TO REDUCE FALL RISK FACTORS AND ESTABLISH HOME EXERCISE PROGRAM TO MINIMIZE FALL RISK. MAY TEACH THE PATIENT FLOOR RECOVERY WHEN CLINICALLY APPROPRIATE] Future Scheduled Test PT / HEALTHCARE LIAISON T O EDUCATE ON HYPERTENSION SELF-MANAGEMENT [code = PT / HEALTHCARE LIAISON TO EDUCATE ON HYPERTENSION SELF-MANAGEMENT] Future Scheduled Test PT / HEALTHCARE LIAISON T O EDUCATE ON PNEUMONIA / ASPIRATION PNEUMONIA SELF-MANAGEMENT. [code = PT / HEALTHCARE LIAISON TO EDUCATE ON PNEUMONIA / ASPIRATION PNEUMONIA SELF-MANAGEMENT.] Future Scheduled Test OCCUPATION AL THERAPIST TO EVALUATE FOR SAFETY WITH AFLS [code = OCCUPATIONAL THERAPIST TO EVALUATE FOR SAFETY WITH AFLS] Future Scheduled Test SPEECH THE RAPIST TO EVALUATE FOR MEMORY AND COGNITION [code = SPEECH THERAPIST TO EVALUATE FOR MEMORY AND COGNITION] Future Scheduled Test PT / HEALTHCARE LIAISON T O INSTRUCT PATIENT/CAREGIVER ON RISK FOR HOSPITALIZATION/EMERGENCY ROOM VISITS, TEACH SIGNS AND SYMPTOMS THAT PUT PATIENT AT RISK, WHEN TO NOTIFY NURSE/PHYSICIAN OF COMPLICATIONS/DECLINE, AND WHEN TO CALL 911. [code = PT / HEALTHCARE LIAISON TO INSTRUCT PATIENT/CAREGIVER ON RISK FOR HOSPITALIZATION/EMERGENCY ROOM VISITS, TEACH SIGNS AND SYMPTOMS THAT PUT PATIENT AT RISK, WHEN TO NOTIFY NURSE/PHYSICIAN OF COMPLICATIONS/DECLINE, AND WHEN TO CALL 911.] Future Scheduled Test PT / HEALTHCARE LIAISON M AY EDUCATE ON PAIN MANAGEMENT CLINICALLY INDICATED, INCLUDING NON-PHARMACOLOGICAL PAIN REDUCTION TECHNIQUES [code = PT / HEALTHCARE LIAISON MAY EDUCATE ON PAIN MANAGEMENT CLINICALLY INDICATED, [...] End Date/Time Encounter Type Admission Type Attending [facility] Care Department Encounter ID Discharge Date Discharge Status Discharge Condition Discharge Reason Percent Goals Met 2024-06-30 00:00:00 2024-08-28 00:00:00 Outpatient MERLY Baker [facility] [id number] .[id number]
--- OUTSIDE RECORDS SUMMARY | 2024-07-05 21:06 | XMS_ITS | Continuity of Care Document ---
Author Organization [facility] Address [address] [place] [address] Phone Care Team Providers Care Preformer Impregnated Fabrics Name Role Phone Connie Moctezuma Unavailable Unavailable Advance Directives Directive Yes / No Effective Date File Name No Information Encounters Encounter Description Practice Location Reason(s) For Visit Diagnoses Date Provider Providers Copied on Encounter [facility], [id number] [place] [address] [address], [place], [place], [id number], [place] tel:[phone] [facility] No Information [address] Rhianna Rosales. [address] , [address], [place], [address], [place]. tel:[phone] Family History Family Member Type Diagnosis Age [...]
--- OUTSIDE RECORDS SUMMARY | 2024-07-05 21:06 | XMS_ITS | Encounter Summary ---
Author Organization [facility] [employer] [facility] Address [address] [place] [address] Care Team Providers Care Applications Instructor Name Role Phone Alexey Medrano Primary Care Provider [phone] Reason for Visit * Reason Comments Med Refill Encounter Details Date Type Department Care Team (Late Contact Info) Description 07/05/2024 Refill [facility] Oncology and Hematology - [place] [address] [facility] [address] [place] [address] Kiran Rivera MD [address] [facility] [address] [place] [address] Social History Tobacco Use Types [...] Description 07/28/2024 8:45 AM CDT Office Visit [facility] Oncology and Hematology - [place] [address] [facility] [address] [place] [address] Kiran Rivera MD [address] [facility] [address] [place] [address] documented as of this encounter Visit Diagnoses Not on filedocumented in this encounter Care Teams Applications Instructor Relationship Specialty Start Date End Date Alexey Medrano DO [address] [facility] [address] [place] [id number] PCP - General Internal Medicine 12/15/23 documented as of this encounter
--- OUTSIDE RECORDS SUMMARY | 2024-07-05 21:06 | XMS_ITS ---
Author Organization [facility] Address [address] [facility] [place] [address] Care Team Providers Care Motorcycle Repair Shop Supervisor Name Role Phone Alexey Medrano DO Primary Care Provider [phone] Active Problems Patient Care Coordination No te Formatting of this note migh t be different from the original. Primary Care: Sid Barrios PA-C Referring Provider: Sid Barrios PA-C [address] [facility] [address] [place] [address] Other: Problem Noted Date Diagnosed Date ILD [...]
--- OUTSIDE RECORDS SUMMARY | 2024-07-05 21:06 | XMS_ITS | Encounter Summary ---
Author Organization [facility] Address [address] [place] [address] Care Team Providers Care Perfect Bind Machine Operator Name Role Phone Alexey Medrano Primary Care Provider [phone] Reason for Referral * Eval and Treat (Routine) - Open Specialty Diagnoses / Procedures [facility] To Contact Pulmonology Diagnoses Pneumonia due to infectious organism, unspecified laterality, unspecified part of lung Procedures CT OFFICE/OUTPATIENT ESTABLISHED MOD MDM [address] OFFICE/OUTPATIENT NEW MODERATE MDM 45 MINUTES Kiran Rivera MD [address] [place] [address] Phone: tel: fax: Referral ID Status Reason Start Date Expiration Date V isits Requested Visits Authorized [id number] Open STL CTS 07/04/2024 07/04/2025 1 1 * PET Scan (Routine) - Closed Specialty Diagnoses / Procedures [facility] Referred To Contact Diagnoses Invasive ductal carcinoma of breast, female, right (CMS/HCC) Procedures PET TUMOR OR INFECTION IMG W CT SKB Kiran Dean MD [address] [place] [phone] Phone: tel: fax: [place] [phone] Referral ID Status Reason Start Date Expiration Date V isits Requested Visits Authorized [id number] Closed STL CTS 07/04/2024 08/04/2025 1 1 Reason for Visit * Reason Comments Cancer Chemotherapy Encounter Details Date Type Department Care Team (Late st Contact Info) Description 07/04/2024 9:15 AM CDT Office Visit [facility] Oncology and Hematology - [place] [address] [facility] [address] [place] [address] Kiran Rivera MD [address] [facility] [address] [place] [address] Pneumonia due to infectious organism, [...] T1 cN0 M0 stage Ia disease ER CT positive HER-2/sam positive diagnosed September 21, 2018. [...] (interstitial lung disease) ([facility]) 06/24/2024 Hypercalcemia 06/23/2024 Protein-calorie malnutrition, severe 06/23/2024 Acute respiratory failure with hypoxia ([facility]) 06/22/2024 Acute renal failure 06/22/2024 Elevated LFTs 06/22/2024 Anemia due to antineoplastic chemotherapy 06/22/2024 Osteonecrosis of mandible ([facility]) 02/27/2023 Facial abscess 02/24/2023 Osteomyelitis ([facility]) 02/24/2023 Malignant neoplasm of axillary tail of right female breast ([facility]) 01/21/2022 Cancer, metastatic to bone ([facility]) 01/21/2022 Invasive ductal carcinoma of breast, female, right ([facility]) 10/18/2018 Lump of right breast 09/21/2018 Abnormality of left breast on screening mammogram 09/21/2018 Metastatic breast cancer with bone metastasis diagnosed in October 2021. Patient was initially diagnosed with early stage invasive ductal carcinoma of the right breast ER CT positive HER-2 sam positive. Status post neoadjuvant [...] Description 07/28/2024 8:45 AM CDT Office Visit [facility] Oncology and Hematology - [place] [address] [facility] [address] [place] [address] Kiran Rivera MD [address] [facility] [address] [place] [address] Scheduled Orders Name Type Priority [...] marrow documented in this encounter Care Teams Perfect Bind Machine Operator Relationship Specialty Start Date End Date Alexey Medrano DO [address] [facility] [address] [place] [address] PCP - General Internal Medicine 12/15/23 documented as of this encounter
--- OUTSIDE RECORDS SUMMARY | 2024-07-05 21:06 | XMS_ITS | Clinical Summary ---
Author Organization [facility] Address [address] [place] [address] Care Team Providers Care Smelter Charger Name Role Phone Sid Barrios PA-C Primary Care Provide r Source Comments [facility] Affiliates and Associated Physician Practices is amultiple site organization consisting of ambulatory clinics and hospital sitesin [place], [place], [place] and [place]. This disclosure is being madepursuant to the Care Everywhere program and may not contain all information available regarding this patient. Last updated 17.[facility] [employer] Social History Tobacco Use Types Packs/Day [...] Group ID:Not on file Type:Self Pay Address: [place], [place] MEDICARE [employer] [place] [facility] R[facility]K [employer] Care Teams Smelter Charger Relationship Specialty Start Date End Date Sid Barrios PA-C [address] [place] [address] PCP - General Physician Slip Presser 02/27/23
--- OUTSIDE RECORDS SUMMARY | 2024-07-05 21:06 | XMS_ITS | Encounter Summary ---
Author Organization [facility] Address [address] [place] [address] Care Team Providers Care Coding Clerks Supervisor Name Role Phone Alexey Medrano Primary Care Provider [phone] Encounter Details Date Type Department Care Team (Late Contact Info) Description 03/23/2019 Chart Note [facility] Radiation Therapy [address] [place] [address] [place] [address] [place] [address] Social History Tobacco Use Types [...] Description 07/28/2024 8:45 AM CDT Office Visit [facility] Oncology and Hematology - [place] [address] [address] [place] [address] Kiran Rivera MD [address] [facility] [address] [place] [address] documented as of this encounter Visit Diagnoses Not on filedocumented in this encounter Care Teams Coding Clerks Supervisor Relationship Specialty Start Date End Date Alexey Medrano DO [address] [facility] [address] [facility] [address] [place] [phone] PCP - General Internal Medicine 12/15/23 documented as of this encounter
--- OUTSIDE RECORDS SUMMARY | 2024-07-05 21:06 | XMS_ITS | Clinical Summary ---
Author Organization [facility] Address [address] [place] [address] Care Team Providers Care Receiving Supervisor Name Role Phone Alexey Medrano Primary Care Provider [phone] Allergies Active Allergy Reactions Criticality Noted Date Comments Amoxicillin-Pot Clavulanate Nausea and Vomiting Low 03/03/2023 Medications lisinopril (PRINIVIL) 20 mg tablet 019 Active iron-vitamin C-vitamin K04-oxbzb acid-succinic acid (MULTIGEN PLUS) 142-62-64-1-50 dn-tx-aau-mg-m g Tablet tablet Take by mouth. Activ e ascorbic acid (VITAMIN C ORAL) Take by mouth. Activ e COVID-19 VACC,MRNA,MODE RNA,-PF IM Inject by intramuscular injection. Lot [id number] Through [facility] Second shot in one month 021 [...] needed. 60 Tablet 02/29/20 23 4:36 PM COMMERCIAL TRAILER TRUCK DRIVER 023 Active ibuprofen (MOTRIN) 600 mg tablet Take 1 Tablet (600 mg) by mouth every 6 hours as needed for mild pain. 60 Tablet 02/29/20 23 4:36 PM COMMERCIAL TRAILER TRUCK DRIVER 023 Active Saccharomyces boulardii (FLORASTOR) 250 mg Capsule Take 1 Capsule (250 mg) by mouth 2 times daily. 60 Capsule 02/29/20 4:36 PM COMMERCIAL TRAILER TRUCK DRIVER 023 Active chlorhexidine gluconate (Peridex) 0.12 % [...] 30 Tablet Active naloxone (NARCAN) 4 mg/spray [place], Non-Aerosol EMERGENCY USE ONLY: Administer 1 spray [...] daily. 18 Tablet 02/29/20 23 4:36 PM COMMERCIAL TRAILER TRUCK DRIVER 023 2024 Discontinued doxycycline hyclate (VIBRAMYCIN) 100 [...] PA-C Referring Provider: Sid Barrios PA-C [address] [facility] [address] [place] [address] Other: Problem Noted Date Diagnosed Date ILD [...] Department Care Team Description 07/05/2024 Orders Only [facility] Oncology and Hematology - [place] [address] [place] [address] Kiran Rivera MD 07/05/2024 Refill [facility] Oncology and Hematology - [place] [address] [place] [address] Kiran Rivera MD 07/04/2024 9:15 AM CDT Office Visit [facility] Oncology and Hematology - [place] [address] [place] [address] Kiran Rivera MD Pneumonia due [...] - 06/28/2024 4:46 PM CDT Hospital Encounter [facility] Medicine [address] [place] [address] Maureen Raman MD Weitzel, MD Nona Kaye Anne, MD Burke, MD Susan Mayen Vanaja, MD Long, Atif Aguilar MD Acute respiratory failure with hypoxia ([facility]/HCC) Discharge Disposition: Home or Self Care 06/22/2024 Travel 06/20/2024 Orders Only [facility] Oncology and Hematology - [place] [address] [place] [address] Kiran Rivera MD Invasive ductal carcinoma of breast, female, right (CMS/HCC) 06/13/2024 Orders Only [facility] Oncology and Hematology - [place] [address] [place] [address] Kiran Rivera MD 06/06/2024 Orders Only [facility] Oncology and Hematology - [place] [address] [place] [address] Kiran Rivera MD Invasive ductal carcinoma of breast, female, right (CMS/HCC) 05/31/2024 8:30 AM CDT Office Visit [facility] Oncology and H[facility]ology [facility] [address] [place] [address] Kiran Rivera MD Invasive ductal carcinoma of breast, female, right (CMS/HCC) (Primary Dx) 05/31/2024 Orders Only [facility] Oncology and Hematology - [address] [place] [address] Kiran Rivera MD 05/25/2024 Orders Only [facility] Oncology and Hematology - [place] [address] Kiran Rivera MD 05/24/2024 Telephone [facility] Oncology and Hematology - [place] [address] [place] [address] Kiran Rivera MD Megace 05/23/2024 Orders Only [facility] Oncology and Hematology - [place] [address] Kiran Rivera MD Invasive ductal carcinoma of breast, female, right (CMS/HCC) 05/18/2024 Orders Only [facility] Oncology and Hematology - [address] Kiran Rivera MD 05/17/2024 Orders Only [facility] Oncology and Hematology - [place] [address] [place] [phone] Kiran Rivera MD 05/16/2024 Refill [facility] Oncology and Hematology - [place] [address] [place] [address] Kiran Rivera MD Acute diarrhea; Invasive ductal carcinoma of breast, female, right (CMS/HCC) 05/11/2024 Orders Only [facility] Oncology and Hematology - [address] [place] [phone] Kiran Rivera MD 05/10/2024 Orders Only [facility] Oncology and Hematology - [address] [place] [phone] Kiran Rivera MD Encounter for monitoring cyclophosphamide therapy (Primary Dx); Invasive ductal carcinoma of breast, female, right (CMS/HCC) 05/09/2024 Orders Only [facility] Oncology and Hematology - [place] [address] [place] [phone] Kiran Rivera MD Invasive ductal carcinoma of breast, female, right (CMS/HCC) 05/04/2024 External Device Data STL ABSTRACTION Provider, Abstract 05/02/2024 8:45 AM COMMERCIAL TRAILER TRUCK DRIVER Office Visit [facility] Oncology and Hematology - [address] [place] [address] Kiran Rivera MD Invasive ductal carcinoma of breast, female, right (CMS/HCC) (Primary Dx) 05/02/2024 Orders Only [facility] Oncology and Hematology - [address] [place] [address] Kiran Rivera MD 04/25/2024 Orders Only [facility] Oncology and Hematology - [address] [place] [address] Kiran Rivera MD Invasive ductal carcinoma of breast, female, right (CMS/HCC) 04/18/2024 Orders Only [facility] Oncology and Hematology - [address] [place] [address] Kiran Rivera MD Invasive ductal carcinoma of breast, female, right (CMS/HCC) (Primary Dx) 04/11/2024 Orders Only [facility] Oncology and Hematology - [address] [place] [address] Kiran Rivera MD Invasive ductal [...] Description 07/28/2024 8:45 AM CDT Office Visit [facility] Oncology and Hematology - [place] [address] [facility] [address] [place] [address] Kiran Rivera MD [address] [facility] [address] [place] [address] Health Maintenance Due Date Last [...] (#1) 2023 Medical Devices Implanted Type Area Data Entry Analyst Device Identifier Shelf Expiration Date Model / Serial / Lot Warehouse Selector Clip Surgiclip Ii Talon 9.75in [id number] - [id number] Implanted:Qty: 1 on 03/31/2019 by Alissa Duarte MD at [facility] Clip Right: Breast [employer] - COVID[employer]EN 07/31/2023 [id number] / / [id number] Hemostatic Surgicel 2x14in 1950 - [id number] Implanted:Qty: 1 on 03/31/2019 by Alissa Duarte MD at [facility] [place] Hemostatic Right: Breast [employer] 04/30/20231950 / / [id number] Hemostatic Surgicel 2x14in 1949 - [id number] Implanted:Qty: 1 on 03/31/2019 by Alissa Duarte MD at [facility] [place] Hemostatic Right: Breast [employer] 04/30/20231950 / / [id number] Procedures Procedure Name Priority Date/Time Associated Diagnosis [...] BASIC METABOLIC PANEL Routine 05/02/2024 2:38 PM COMMERCIAL TRAILER TRUCK DRIVER CBC WITH AUTODIFFERENTIAL Routine 05/02/2024 10:30 AM COMMERCIAL TRAILER TRUCK DRIVER MAMMO 3D RIAN DIAGNOSTIC BILAT W OR WO CAD Routine 01/21/2022 12:54 PM COMMERCIAL TRAILER TRUCK DRIVER Invasive ductal carcinoma of breast, female, right [...] WITH EXERCISE (06/28/2024 3:20 PM CDT) Narrative [facility] - 06/28/2024 3:20 PM CDT Delilah [...] López PA-C PFT ORDERABLES Final Resu lt [facility] [address] [place] [address] * (ABNORMAL) MANUAL DIFFERENTIAL (06/28/2024 6:43 AM CDT) Only the most recent of6 resultswithin the time period is included. SEGMENTED NEUTROPHILS 65 % 06/28/2024 8:05 AM T [facility] [employer] [facility] - . [facility] LYMPHOCYTES RELATIVE 16(L) 43 - 53 % 06/28/2024 8:05 AM [facility] MONOCYTES RELATIVE 9 % 06/28/2024 8:05 AM T [facility] [employer] [facility] - . [place] METAMYELOCYTES RELATIVE 3(H) <=0 % 06/28/2024 8:05 AM [facility] - . [place] MYELOCYTES - REL (DIFF) 7(H) <=0 % 06/28/2024 8:05 AM T [facility] [employer] [facility] NEUTROPHILS ABSOLUTE COUNT 5.98 1.90 - 7.00 K/uL 06/28/2024 8:05 AM T [facility] [employer] [facility] - . [place] LYMPHOCYTES ABSOLUTE 1.47 0.70 - 4.50 K/uL 06/28/2024 8:05 AM [facility] MONOCYTES ABSOLUTE 0.83 0.10 - 1.30 K/uL 06/28/2024 8:05 AM T [facility] [employer] [facility] - . [place] TOTAL CELLS COUNTED IN DIFF 100 06/28/2024 8:05 AM T [facility] [employer] [facility] PLATELET EST. Consistent w Count 06/28/2024 8:05 AM T [facility] [employer] [facility] ANISOCYTOSIS 1+ /hpf 06/28/2024 8:05 AM [facility] [employer] [facility] MACROCYTES 1+ /hpf 06/28/2024 8:05 AM [facility] [employer] [facility] POLYCHROMASIA 1+ /hpf 06/28/2024 8:05 AM [facility] Blood Venipuncture / Unknown 06/28/2024 6:43 AM CDT 06/28/2024 6:53 AM CDT us Kia Castellano MD HEMATOLOGY ORDERABLES COM Final Result [facility] [employer] [facility] CLIA# [id number] [address] [place] [address] * (ABNORMAL) CBC WITH DIFFERENTIAL (06/28/2024 6:43 AM CDT) Only the most recent of6 resultswithin the time period is included. [facility] WBC 9.2 4.0 - 9.8 K/uL 06/28/2024 7:09 AM [employer] [facility] - [facility] NRBCS 9 % 06/28/2024 7:09 AM [employer] [facility] RBC 2.32(L) 3.90 - 4.90 M/uL 06/28/2024 7:09 AM [employer] [facility] HEMOGLOBIN 7.9(L) 11.8 - 14.8 g/dL 06/28/2024 7:09 AM [employer] [facility] HEMATOCRIT 23.6(L) 35.5 - 44.0 % 06/28/2024 7:09 AM [employer] [facility] MCV 101.7(H) 82.0 - 99.0 fL 06/28/2024 7:09 AM [employer] [facility] MCH 34.1(H) 27.2 - 32.6 pg 06/28/2024 7:09 AM [employer] [facility] MCHC 33.5 31.5 - 35.5 g/dL 06/28/2024 7:09 AM [employer] SERVICES [facility] RDW 19.8(H) 11.5 - 14.5 % 06/28/2024 7:09 AM [employer] [facility] RDW-STDEV 69.5(H) 37.1 - 48.7 fL 06/28/2024 7:09 AM [employer] [facility] PLATELETS 45(L) 140 - 350 K/uL 06/28/2024 7:09 AM [employer] [facility] Comment:Persistent abnormal result. MPV 06/28/2024 7:09 AM [employer] [facility] Comment:Parameter not availa ble Blood Venipuncture / Unknown 06/28/2024 6:43 AM CDT 06/28/2024 6:53 AM CDT us Kia Castellano MD HEMATOLOGY ORDERABLES Edited Re sult - Final [facility]# [id number] [address] [place] [address] * MRI BRAIN W WO CONTRAST (06/27/2024 3:16 AM CDT) Anatomical Region Laterality Modality Head Magnetic Resonan ce 06/27/2024 3:21 AM CDT Impressions 06/27/2024 8:46 AM CDT IMPRESSION: Suspected metastatic disease to upper cervical vertebrae and calvarium. Prominent leptomeningeal enhancement as described above. Otherwise no evidence of parenchymal brain metastases. Focal cortical chronic infarcts. Dictation Location 1 [facility] Narrative 06/27/2024 8:46 AM CDT MR IMAGING [...] Focal cortical chronic infarcts. Dictation Location 1 [facility] us Beatriz Davis MD MR ORDERABLES Final Result * (ABNORMAL) BLOOD GAS ARTERIAL (06/26/2024 3:48 PM CDT) Only the most recent of2 resultswithin the time period is included. PH ARTERIAL 7.48(H) 7.35 - 7.45 06/26/2024 4:05 PM T [facility]OR[facility] SERVICES [facility] PCO2 ARTERIAL 22(L) 35 - 48 mm Hg 06/26/2024 4:05 PM [facility] PO2 ARTERIAL 77(L) 83 - 108 mm Hg 06/26/2024 4:05 PM [facility] HCO3 ARTERIAL 16(L) 22 - 26 mmol/L 06/26/2024 4:05 PM [facility] BASE EXCESS ABG -6.0(L) -2.0 - 3.0 mmol/L 06/26/2024 4:05 PM CDT [facility] - [facility] O2 SAT EST ARTERIAL 96 95 - 99 % 06/26/2024 4:05 PM T [facility] P/F RATIO ARTERIAL 275 06/26/2024 4:05 PM T [facility] OXYGEN MODE Nasal Cannula 06/26/2024 4:05 PM T [facility] Comment:2 L FIO2 28.0 21.0 - 100.0 % 06/26/2024 4:05 PM T [facility] Blood, arterial Arterial / Unknown 2024 3:48 PM CDT 06/26/2024 3:52 PM CDT Addi Suero MD ABG ORDERABLES Final Result Performing Organization Address [facility] Co de Phone Number [facility] CLIA# [id number] [address] [place] [address] * (ABNORMAL) C-REACTIVE PROTEIN (06/25/2024 3:24 AM CDT) Only the most recent of2 resultswithin the time period is included. CRP 82.5(H) <5.0 mg/L 06/25/2024 4:15 AM CDT [facility] Blood Venipuncture / Unknown 06/25/2024 3:24 AM CDT 06/25/2024 3:34 AM CDT Addi Suero MD CHEMISTRY ORDERABLES F inal Result Performing Organization Address City/[facility]/ZIP Co de Phone Number [facility] CLIA# [id number] [address] [place] [address] [address] * (ABNORMAL) HEPATIC FUNCTION PANEL (06/24/2024 5:49 AM CDT) TOTAL PROTEIN 5.8(L) 6.7 - 8.6 g/dL 06/24/2024 6:46 AM T [facility] ALBUMIN 3.1(L) 3.5 - 5.2 g/dL 06/24/2024 6:46 AM T [facility]. [place] BILIRUBIN TOTAL 0.3 0.2 - 1.1 mg/dL 06/24/2024 6:46 AM [facility]. [facility] BILIRUBIN DIRECT 0.2 <0.4 mg/dL 06/25/19 6:46 AM T [facility]. [facility] ALKALINE PHOSPHATASE 213(H) 35 - 104 U/L 06/24/2024 6:46 AM T [facility]. [facility] AST 154(H) <33 U/L 06/24/2024 6:46 AM [facility]. [facility] ALT 25 <34 U/L 06/24/2024 6:46 AM [facility] Blood Venipuncture / Unknown 06/24/2024 5:49 AM CDT 06/24/2024 5:57 AM CDT Narrative [facility] - 06/24/2024 6:46 AM CDT Samples containing indocyanine green cause interferences on Total and/or Direct Bilirubin and must not be measured. us Kia Castellano MD CHEMISTRY ORDERABLES Final Resu lt [facility]# [id number] [address] [facility] [place] [address] * CT ABDOMEN W WO CONTRAST (06/23/2024 [...] is recommended. DICTATION LOCATION: Location 1 - [facility] 06/24/2024 8:[address] ABDOMEN W [...] pelvic ultrasound is recommended. DICTATION LOCATION: Location [address] [place] [address] us Kia Castellano MD CT ORDERABLES Final Result * ECHOCARDIOGRAM W/ CONTRAST AGENT (06/23/2024 1:50 PM CDT) EJECTION FRACTION 52 INTERFACE SYSTEM 06/23/2024 1:23 PM CDT Narrative INTERFACE SYSTEM - 06/23/2024 4:51 PM CDT [address] [address] [email or web address] Transthoracic Echocardiogram Patient: Nita Robert Study ID: ECHO COMPLETE - Gender: F : 1950 Age: 73 Race: [facility] Height 162.6cm Study Date: 06/23/2024 Weight: 78.7kg Access. #: [id number] BP: *Referring Physician:Tami Cobos *Ordering Physician:Tami Cobos dispersion mixer: Nurse: Indications: Pain. Congestive heart failure. STUDY [...] PM. Prepared and Electronically Authenticated Nelson Bolton [id number] Procedure Note Nelson Bolton MD - 06/23/[address] [address] [email or web address] [email or web address] Echocardiogram Patient: Nita Robert Study ID: ECHO COMPLETE - Gender: F : 1950 Age: 73 Race: LILLY Height 162.6cm Study Date: 06/23/2024 Weight: 78.7kg Access. #: [id number] BP: *Referring Physician:Tami Cobos *Ordering Physician:Tami Cobos dispersion mixer: Nurse: Indications: Pain. Congestive heart failure. STUDY [...] PM. Prepared and Electronically Authenticated Nelson Bolton [id number] us Tami Frias MD US ORDERABLES Final [...] No relevant prior studies are available. The mail order sorter notes a suboptimal examination due to labored [...] No relevant prior studies are available. The mail order sorter notes a suboptimal examination due to labored [...] Small bilateral pleural effusions. DICTATION LOCATION: Location [address] [place] [address] Narrative 06/23/2024 7:14 AM CDT EXAMINATION: XR [...] Small bilateral pleural effusions. DICTATION LOCATION: Location [address] [place] [address] us Tami Frias MD DIAGNOSTIC IMAGING ORDERAB LES Final Result * EKG 12-LEAD (06/23/2024 12:03 AM CDT) 06/23/2024 12:0 3 AM CDT Narrative INTERFACE SYSTEM - 06/23/2024 1:57 PM CDT [facility] [address] [place] [address] Test Date: 2024-06-23 Pat Name: NITA ROBERT Department: 58 Room: [address] [place] [address] Gender: F Horticultural Specialty Grower: LUKE : 1950 Requested By: MAUREEN Torres Order Number: [id number] Reading MD: Nelson Bolton Measurements Intervals Hewitt Rate: 108 P: 64 NV: 140 QRS: 42 QRSD: 88 T: 52 QT: 331 QTc: 444 Interpretive Statements SINUS TACHYCARDIA LOW QRS VOLTAGE IN EXTREMITY LEADS Electronically Signed On 06-23-2024 13:57:41 CDT by Nelson Bolton Procedure Note Nelson Bolton MD - 06/23/2024 [facility] [address] [facility] [place] [address] Test Date: 2024-06-23 Pat Name: NITA ROBERT Department: 58 Room: [address] [place] [address] Gender: F Horticultural Specialty Grower: LUKE : 1950 Requested By: MAUREEN Torres Order Number: [id number] Reading MD: Nelson Bolton Measurements Intervals Hewitt Rate: 108 P: 64 NV: 140 QRS: 42 QRSD: 88 T: 52 QT: 331 QTc: 444 Interpretive Statements SINUS TACHYCARDIA LOW QRS VOLTAGE IN EXTREMITY LEADS Electronically Signed On 06-23-2024 13:57:41 CDT by Nelson Bolton us Tami Frias MD ECG ORDERABLES Final Resu lt INTERFACE SYSTEM Refer to clinic/hospital department * LACTIC ACID (06/22/2024 10:16 PM CDT) LACTIC ACID 2.0 <=2.0 mmol/L 06/22/2024 10:46 PM CDT [facility] Blood Venipuncture / Unknown 06/22/2024 10:16 PM CDT 06/22/2024 10:21 PM CDT us Tami Frias MD CHEMISTRY ORDERABLES Final Result Performing Organization Address [facility]/ZIP Co de Phone Number [facility] CLIA# [id number] [address] [facility] [place] [address] * (ABNORMAL) BRAIN NATRIURETIC PEPTIDE, BNP OR PROBNP (06/22/2024 10:16 PM CDT) PROBNP, N TERMINAL 38,820(H) <124 pg/mL 06/23/2024 12:43 AM CDT [facility] [employer] [facility] Comment: INTERPRETIVE COMMENT based on diagnosis: Diagnostic [...] Tami Frias MD CHEMISTRY ORDERABLES Final Result [facility]# [id number] [address] [place] [address] * CANCER ANTIGEN 15-3 (05/24/2024 3:20 PM [...] * CBC WITH AUTODIFFERENTIAL (05/02/2024 10:30 AM COMMERCIAL TRAILER TRUCK DRIVER) Blood us Kiran Rivera MD HEMATOLOGY ORDERABLES Final Res ult * MAMMO DIAG BILAT 3D RIAN W OR WO CAD (01/21/2022 12:54 PM COMMERCIAL TRAILER TRUCK DRIVER) Anatomical Region Laterality Modality Breast Bilateral Mammography 01/21/2022 12:5 4 PM COMMERCIAL TRAILER TRUCK DRIVER Impressions 01/21/2022 3:32 PM COMMERCIAL TRAILER TRUCK DRIVER IMPRESSION: No suspicious findings to suggest malignancy in either breast. Annual mammography is recommended. OVERALL FINAL ASSESSMENT: BI-RADS CATEGORY 2 - Benign findings. Narrative 01/21/2022 3:32 PM COMMERCIAL TRAILER TRUCK DRIVER EXAM: BILATERAL DIAGNOSTIC DIGITAL MAMMOGRAM WITH 3D [...] prior right breast conservation therapy. [facility] [place] TECHNIQUE: Mediolateral oblique, mediolateral and craniocaudal views [...] Maintenance Insurance MEDICARE PART A AND B [employer] [facility] MEDICARE PART A AND B [employer] [facility] [place] [address] RX [facility] Medicare Part D RX [employer] (INTERNAL) [facility] Internal Plans Advance Directives For more information, please contact: [phone] * Full Code (Latest Code Status on File) Date Activated Date Inactivated Comments 06/22/2024 9:59 PM 06/28/2024 6:46 PM * Full Code Date Activated Date Inactivated Comments 02/24/2023 10:43 PM 02/28/2023 7:18 PM Care Teams Receiving Supervisor Relationship Specialty Start Date End Date Alexey Medrano DO [address] [facility] [address] [place] [address] PCP - General Internal Medicine 12/15/23
[2024-07-05] MEDS: LACTATED RINGERS 1,000 ML 999 ML IV CONT (21:23)
[2024-07-05 21:30] LABS: Alanine Aminotransferase 107 U/L (6-35); Albumin Level 3.7 g/dL (3.5-5.1); Alkaline Phosphatase 653 U/L (38-126); Anion Gap 13 mmol/L (4-12); Aspartate Amino Transferase 284 U/L (14-36); Bilirubin,Total 1.7 mg/dL (0.2-1.3); Blood Urea Nitrogen 58 mg/dL (7-17); Calcium 10.6 mg/dL (8.4-10.2); Carbon Dioxide 17 mmol/L (22-30); Chloride 110 mmol/L (98-107); Estimated Glomerular Filt Rate 36; Glucose 118 mg/dL (65-110); Potassium 4.6 mmol/L (3.4-5.0); Sodium 140 mmol/L (137-145)
[2024-07-05 21:44] LABS: Hematocrit 31.9 % (37.0-47.0); Immature Platelet Fraction Pct 9.3 % (0.9-11.2); Mean Corpuscular HGB Conc 31.3 g/dl (32-36); Mean Corpuscular Hemoglobin 34.4 pg (26-34); Mean Corpuscular Volume 109.6 fl (80-100); Platelet Count Result 43 k/mm3 (150-375); Red Blood Count 2.91 M/mm3 (4.2-5.4); White Blood Count 17.8 K/mm3 (4.5-10.0)
[2024-07-05 22:04] LABS: Total Cells Counted 100
[2024-07-05 22:05] LABS: Band Neutrophils Percent 7 % (0-6); Lymphocytes Absolute Manual 1.06 K/mm3 (1.1-4.5); Lymphocytes Percent Manual 6 % (18-44); Monocytes Absolute Manual 0.89 K/mm3 (0.1-0.90); Monocytes Percent Manual 5 % (3-9)
[2024-07-05 22:06] LABS: Myelocytes Percent 5 %; Nucleated Red Blood Cells 15 %; Platelet Estimate Decreased (Adequate)
[2024-07-05 22:07] LABS: Anisocytosis 2+; Macrocytosis 1+ (NORMAL); Ovalocytes 1+; Schistocytes None Seen
[2024-07-05 22:11] LABS: Metamyelocytes Percent 4 %; Neutrophils Absolute Manual 14.24 K/mm3 (1.7-7.2); Neutrophils Percent Manual 73 % (46-73)
[2024-07-05 22:40] LABS: Add Urine Microscopic? YES; Appearance Urine Cloudy (Clear); Bacteria Urine None Seen /hpf; Bilirubin Urine Negative (Negative); Blood Urine Negative (Negative); Color Urine Yellow (Yellow); Glucose Urine UA Negative (Negative); Hyaline Casts Urine Present /lpf; Ketones Urine Trace mg/dL (Negative); Leukocyte Esterase Ur Negative LEU/UL (Negative); Need Manual Microscopic Reviewed; Nitrate Urine Negative (Negative); Protein Urine 1+ mg/dL (Negative); RBC Urine 0-2 /hpf (0-2); Specific Grav Ur 1.019 (1.001-1.035); Squamous Epithelial Cell Urine None Seen /hpf (Few); Urobilinogen Urine 0.2 mg/dL (<2.0); WBC Urine 0-5 /hpf (0-3)
[2024-07-06] VITALS (8 sets, daily range): BP systolic 131–165; BP diastolic 59–93; PULSE 89–124; RESP 16–22; TEMP 35.7–36.6; O2SAT 92–96; BMI 27.9
[2024-07-06] MEDS: LACTATED RINGERS 1,000 ML 999 ML IV CONT (00:11)
[2024-07-06] MEDS: MORPHINE SULFATE (*CRX) 4 MG/ML INJ IV PUSH ×2 (02:14→22:18)
[2024-07-06] MEDS: traMADol HCL (*CRX) 50 MG TABLET PO (02:18)
--- NOTE | 2024-07-06 02:43 | P.HP_ITS ---
H&P: HPI History of Present Illness Date/Time: 07/06/24 02:43 Chief Complaint: Weakness Narrative: This is a very ill, 73-year-old female patient with significant history of right breast cancer ER/OR positive, HER2 positive initially diagnosed in August of 2018 who underwent adjuvant chemo and followed by lumpectomy March 31, 2019 with discovered metastasis to the bones in 10/01/2021 with upward trending CA 15-3 levels. Patient then was initial lysed on first-line treatment however was unable to tolerate it secondary to her diarrhea. Second-line treatment was initiated and then on 05/17/2024 CT scan showed concern for pulmonary infection. Patient was given 10 days of Levaquin did not have improvement in her symptoms and was ultimately admitted to the hospital here from June 22 to June 28 for acute respiratory failure with hypoxia and all signs pointing to potential of bacterial infection. Was felt to be due to the patient's Lapatinib. Patient was ultimately transferred from our hospital on June 28 to [facility] for pulmonology evaluation and possible bronchoscopy. I am told that this bronchoscopy did not occur, however it is noted in notes reviewed from the discharge summary from [facility] patient had echo while there demonstrating an ejection fraction of 50-55% with grade [address] scan with concerns for liver metastasis that correlates with patient's elevated LFTs. Patient was also treated for severe protein calorie malnutrition and followed up with Dr. Rivera yesterday in his office and is due to start chemo again on July 28. In the interim time patient was discharged home from [facility] on prednisone. Despite finishing the course of therapy patient continues to have a persistent, dry cough and presents to the emergency room this evening with inc reasing weakness, stating in a tearful manner, I don't want this pain anymore. Family tells me that for the past few weeks they have also noticed that patient has been increasingly confused. Examples include being unable to find words, not finishing her thoughts and stopping mid sentence and becoming increasingly frustrated due to communication difficulties. Patient appears ill. Workup performed in the emergency room consisted of labs and imaging. Labs significant for findings of leukocytosis at 17.8 with 7% bands. It is unclear whether not this was from her residual infection or from the dosing of steroids upon discharge from [facility]. Patient is anemic with hemoglobin of 10.0 which is her baseline and has thrombocytopenia with platelet level of 43. Metabolic panel with mild renal insufficiency with creatinine of 1.44. BUN is 58. Patient has transaminitis with AST of 284, ALT of 107, alk-phos elevated at 653 and total bilirubin of 1.7, this is consistent with concerns for liver metastasis. Urinalysis remarkable only for trace ketones and 1+ protein. Chest x-ray performed showing multiple focal infiltrates. This is concerning as patient did recently have treatment for similar infection. I discussed with family at the bedside whether not any imaging has been performed of the brain and was told that an MRI was performed of the brain while she was at [facility] that was negative for any signs of metastasis. Overall I have encouraged this patient and her family to have discussion regarding goals of care. She is appropriate for Palliative/Hospice care. They have agreed to think about it and at this time she is being admitted for initiation of tx for her respiratory complaints and we will consult Oncology to see her while she is here. Review of Systems Review of Systems: All systems reviewed & are unremarkable except as noted in HPI and below PMFSH Past Medical History Medical History (Updated 07/06/24 @ 03:08 by MALIA Rodriguez) Altered mental status Metastatic disease Chemotherapy induced diarrhea Breast cancer metastasized to bone History of breast cancer Diagnosed in 2019 status post right-sided lumpectomy and sentinel lymph node biopsy in 2019. Found to have recurrent metastatic disease and was started on chemotherapy in 2023. Anemia GERD (gastroesophageal reflux disease) HTN (hypertension) Surgical History Surgical History Hx laparoscopic cholecystectomy 12/30/[address] Haro History of lumpectomy Hx of appendectomy Open appendectomy Family History Family History Mother Patient's mother is Father Cerebrovascular accident Social History Social History Social History: Surrogate medical decision maker: Moe Marks, spouse. Code status: full code. Smoking status: Never smoker Second hand tobacco smoke exposure: Yes Alcohol intake: never Drinks per week: 1 Substance use: never Substance use type: does not use Do You Feel Safe in your Home?: Yes Lack of Transportation: No Lack of Food: Never True Current Housing: I Have Housing Concerned About Future Housing: No Difficulty Paying Gas/Electric Bills: No Difficulty Paying for Meds: No Currently Unemployed: No Education: Associate Degree Difficulty w/ Childcare or Family Care: No Living arrangements: with family Additional living arrangements comments: Lives with in [place]. They have 1 child. Spiritual care concerns: No Meds Home Medications and Allergies Home Medications ?Medication ?Instructions ?Recorded ?Confirmed ?Type ascorbic acid (vitamin C) 500 mg 500 mg PO BID 12/17/18 06/18/24 History tablet famotidine 20 mg tablet 20 mg PO DAILY 12/17/18 06/18/24 History multivitamin 1 tablet PO DAILY 12/17/18 06/18/24 History acetaminophen 500 mg capsule 1,000 mg PO Q8H PRN Pain 10/07/21 06/18/24 History ferrous sulfate 325 mg (65 mg 325 mg PO BID 10/07/21 06/18/24 History iron) tablet vitamin B12 1 mg-folic acid 0.8 mg 1,000 tablet PO DAILY 07/23/23 06/18/24 History tablet diphenoxylate-atropine 2.5 1 tablet PO PRN PRN Diarrhea 12/25/23 06/18/24 History mg-0.025 mg tablet ondansetron 8 mg disintegrating 8 mg PO Q8H PRN Nausea 12/25/23 06/18/24 History tablet loperamide 2 mg capsule 2 mg PO PRN PRN Diarrhea 12/26/23 06/18/24 History megestrol 400 mg/10 mL (40 mg/mL) 400 mg PO DAILY 05/31/24 06/18/24 History oral suspension prochlorperazine maleate 10 mg 10 mg PO Q8H PRN nausea and 06/18/24 06/18/24 History tablet vomiting lisinopril 20 mg tablet See Rx Instructions .Route 06/30/24 Rx .COMPLEX #90 tabs magnesium citrate 34 mg chewable mg PO BID 07/06/24 History tablet prednisone 10 mg tablet mg PO DAILY 07/06/24 History Allergies Allergy/AdvReac Type Severity Reaction Status Date / Time amoxicillin (From Augmentin) AdvReac Nausea and Verified 06/18/24 14:52 Vomiting clavulanic acid (From AdvReac Nausea and Verified 06/18/24 14:52 Augmentin) Vomiting Vital Signs Vital Signs - 24 hr 07/05/24 18:40 07/06/24 02:04 Temperature 97.6 F Pulse Rate 115 H 89 Respiratory Rate 16 22 H Blood Pressure 145/81 H 144/62 H Pulse Oximetry 95 93 Oxygen Delivery Room Air Exam Const: General: uncomfortable Other: Elderly female pt sitting up in the bed at this time in acute pain distress, tearful, saying, I just want the pain to stop. Family at bedside. HENMT: Face/Nose/Sinus: Normal nares present Mouth: Yes dry mucous membranes Eyes: Sclera: scleral abnormality (Mild icterus) Pupils: Equal, round and reactive pupils present EOM: EOMs intact bilaterally Neck: Neck: supple and no JVD Lymphatic: lymphadenopathy not noted Chest: Other: Nontender Resp: Effort & Inspection: normal respiratory effort Auscultation: diminished lung sounds diffuse Cardio: Rhythm: regular rhythm Heart sounds: no gallops, Murmur heart sound present and no rubs Other: Grade 2 holosystolic GI: Inspection: non-distended GI Palp: Yes Soft to palpation and No Tenderness to palpation present (GI) Auscultation: normal bowel sounds Skin: General skin exam: No normal color (Mild jaundice) Lesions: no lesions noted Rashes: no rashes noted Wounds: no wounds Neuro: Speech: normal speech Motor exam (neuro): Abnormal motor strength present (Generalized, nonfocal weakness) Sensory Exam: normal sensation Other: Patient forgetful, witnessed forgetting words mid sentence. Extrem: General: edema bilateral (Bilateral trace pitting) Psych: Mental Status: mental status grossly normal Affect: Sad affect present Other: Tearful H&P: Results Labs Labs: Short CBC 07/05/24 Range/Units 21:15 WBC 17.8 H (4.5-10.0) K/mm3 Hgb 10.0 L (12.0-15.0) g/dL Hct 31.9 L (37.0-47.0) % Plt Count 43 L (150-375) k/mm3 BMP 07/05/24 21:15 Sodium 140 Potassium 4.6 Chloride 110 H Carbon Dioxide 17 L BUN 58 H Creatinine 1.44 H Glucose 118 H Calcium 10.6 H Liver Function 07/05/24 Range/Units 21:15 Total Bilirubin 1.7 H (0.2-1.3) mg/dL AST 284 H (14-36) U/L ALT 107 H (6-35) U/L Alkaline Phosphatase 653 H (38-126) U/L Albumin 3.7 (3.5-5.1) g/dL Urine 07/05/24 Range/Units 21:56 Urine Color Yellow (Yellow) Urine Appearance Cloudy H (Clear) Urine pH 5.0 (5.0-9.0) Ur Specific [place] 1.019 (1.001-1.035) Urine Protein 1+ H (Negative) mg/dL Urine Glucose (UA) Negative (Negative) mg/dL Assessment and Plan Assessment and plan (1) Weakness: Code(s): R53.1 - Weakness Status: Acute Assessment and Plan: * Generalized, nonfocal * Fall precautions * Etiology most likely due to acute infection and/or metastatic disease * Consult PT and OT (2) Adult failure to thrive: Code(s): R62.7 - Adult failure to thrive Status: Acute Assessment and Plan: * Calorie deficit malnutrition * Secondary to metastatic disease and acute infection * Consult dietary * PT and OT consult * Continue Megace * Patient received IV fluids in emergency room of 2 L normal saline (3) Altered mental status: Code(s): R41.82 - Altered mental status, unspecified Status: Acute Assessment and Plan: * Etiology infection versus metastasis versus age-related changes * CT scan brain ordered * Trend labs and vital signs. * Provide for safety * No focal deficits. (4) Pneumonia: Code(s): J18.9 - Pneumonia, unspecified organism Status: Acute Assessment and Plan: * Chest x-ray showing multifocal infiltrates again with a left-shifted white count. * Azithromycin and Rocephin initiated * Lactic acid, procalcitonin ordered, blood cultures x2 pending * Sputum culture ordered * Provide supportive care * Not meeting sepsis criteria, but does meet SIRS at this point until additional labs return. (5) Metastatic disease: Code(s): C79.9 - Secondary malignant neoplasm of unspecified site Status: Acute Assessment and Plan: * Acute on chronic. Patient with known breast cancer with metastasis to the bone and according to imaging performed recently at [facility] showing lesion on liver that is highly concerning for metastasis and does correlate with patient's transaminitis and elevated bilirubin and alk-phos. * Consult Dr. Rivera from Oncology while admitted for opinion as he is patient's oncologist. * Patient appears acutely ill. Would be good candidate for palliative/hospice care as she is tearful stating, I just want the pain to stop. * Patient chooses to be full code at this time as she is undecided on what she wants. * Concerned that patient will not be strong enough to resume chemotherapy on July 28. (6) GERD (gastroesophageal reflux disease): Code(s): K21.9 - Gastro-esophageal reflux disease without esophagitis Status: Chronic Assessment and Plan: * Continue famotidine (7) Anemia: Code(s): D64.9 - Anemia, unspecified Status: Chronic Assessment and Plan: * Thrombocytopenia and hemoglobin of 10.0. * No signs of acute bleeding * Continue to monitor and trend labs * Oncology consulted Quality VTE Prophylaxis VTE prophylaxis: mechanical ordered
--- NOTE | 2024-07-06 02:53 | ED_ITS ---
HPI - Weakness General Chief complaint: Weakness Stated complaint: SOB, weakness, confusion, LKW 1400 Time Seen by Provider: 07/05/24 20:49 History of Present Illness HPI Narrative: Patient undergoing chemotherapy for ?metastatic? breast cancer coags not been feeling well for months to years, and has not been eating or drinking much, practically collapsed during occupational therapy at home today with generalized weakness. She is denying pain at this time but just overall feels very very tired Related Data Home Medications ?Medication ?Instructions ?Recorded ?Confirmed ?Last Taken ?Type ascorbic acid (vitamin C) 500 mg 500 mg PO BID 12/17/18 07/06/24 12/25/23 History tablet famotidine 20 mg tablet 20 mg PO DAILY 12/17/18 07/06/24 12/24/23 History multivitamin 1 tablet PO DAILY 12/17/18 07/06/24 12/24/23 History acetaminophen 500 mg capsule 1,000 mg PO Q8H PRN Pain 10/07/21 07/06/24 06/17/24 21:00 History 1,000 mg ferrous sulfate 325 mg (65 mg 325 mg PO BID 10/07/21 07/06/24 12/24/23 History iron) tablet vitamin B12 1 mg-folic acid 0.8 mg 1,000 tablet PO DAILY 07/23/23 07/06/24 12/24/23 History tablet diphenoxylate-atropine 2.5 1 tablet PO PRN PRN Diarrhea 12/25/23 07/06/24 06/18/24 08:00 History mg-0.025 mg tablet 1 tablet ondansetron 8 mg disintegrating 8 mg PO Q8H PRN Nausea 12/25/23 07/06/24 12/24/23 History tablet loperamide 2 mg capsule 2 mg PO PRN PRN Diarrhea 12/26/23 07/06/24 Unknown History megestrol 400 mg/10 mL (40 mg/mL) 400 mg PO DAILY 05/31/24 07/06/24 Unknown History oral suspension prochlorperazine maleate 10 mg 10 mg PO Q8H PRN nausea and 06/18/24 07/06/24 Unknown History tablet vomiting magnesium citrate 34 mg chewable mg PO BID 07/06/24 Unknown History tablet prednisone 10 mg tablet mg PO DAILY 07/06/24 07/05/24 17:30 History Allergies Allergy/AdvReac Type Severity Reaction Status Date / Time amoxicillin (From Augmentin) AdvReac Nausea and Verified 06/18/24 14:52 Vomiting clavulanic acid (From AdvReac Nausea and Verified 06/18/24 14:52 Augmentin) Vomiting Review of Systems 2 Review of Systems: All systems reviewed & are unremarkable except as noted in HPI and below PMFSH Past Medical History Medical History (Updated 07/06/24 @ 02:59 by Dahiana Holcomb MD) Chemotherapy induced diarrhea Breast cancer metastasized to bone History of breast cancer Diagnosed in 2019 status post right-sided lumpectomy and sentinel lymph node biopsy in 2019. Found to have recurrent metastatic disease and was started on chemotherapy in 2023. Anemia GERD (gastroesophageal reflux disease) HTN (hypertension) Surgical History Surgical History Hx laparoscopic cholecystectomy 12/30/[address] Haro History of lumpectomy Hx of appendectomy Open appendectomy Family History Family History Mother Patient's mother is Father Cerebrovascular accident Social History Social History Social History: Surrogate medical decision maker: Moe Marks, spouse. Code status: full code. Smoking status: Never smoker Second hand tobacco smoke exposure: Yes Alcohol intake: never Drinks per week: 1 Substance use: never Substance use type: does not use Do You Feel Safe in your Home?: Yes Lack of Transportation: No Lack of Food: Never True Current Housing: I Have Housing Concerned About Future Housing: No Difficulty Paying Gas/Electric Bills: No Difficulty Paying for Meds: No Currently Unemployed: No Education: Associate Degree Difficulty w/ Childcare or Family Care: No Living arrangements: with family Additional living arrangements comments: Lives with in [place]. They have 1 child. Spiritual care concerns: No Exam 2 Narrative: EXAMINATION OF ORGAN SYSTEMS/BODY AREAS: Constitutional: Vital signs per nursing GENERAL: Occasionally tearful HEAD: Normal with no signs of head trauma. EYES: EOMI, conjunctiva normal ENT: Hearing grossly intact LUNGS: Nonlabored breathing. HEART: Tachycardic ABD: [Soft], [nontender to palpation] EXT: Normal range of motion SKIN: [No rashes or lesions.] NEURO: [Alert and oriented x 3 but with speech finding difficulties. No gross focal sensory or strength deficits.] PSYCH: Tearful affect Course Vital Signs Vital signs: Vital Signs Temperature 97.6 F 07/05/24 18:40 Pulse Rate 115 H 07/05/24 18:40 Respiratory Rate 16 07/05/24 18:40 Blood Pressure 145/81 H 07/05/24 18:40 Pulse Oximetry 95 07/05/24 18:40 Oxygen Delivery Room Air 07/05/24 18:40 Temperature 97.6 F 07/05/24 18:40 Pulse Rate 89 07/06/24 02:04 Respiratory Rate 22 H 07/06/24 02:04 Blood Pressure 144/62 H 07/06/24 02:04 Pulse Oximetry 93 07/06/24 02:04 Oxygen Delivery Room Air 07/05/24 18:40 MDM - Weakness MDM Narrative Medical decision making narrative: 1) Differential diagnosis: Dehydration, infection, malnutrition, cancer with metastases, chemotherapy 2) Comorbidities: Cancer 3) External notes reviewed: Admission notes 4) History sources independently obtained from: Patient's , sister at bedside 5) Discussion of management with: Hospitalist 6) Independent interpretation of: Chest x-ray, showing multiple patchy of opacities bilaterally 7) Diagnostic tests or therapies considered but not ordered: n/a 8) Social determinants of health: 9) Shared decision making: Patient presenting with generalized weakness, failure thrive, eating and drinking, with breast cancer that is metastatic. She still currently on chemotherapy. I did have a very very long discussion with the patient and and sister at bedside regarding her goals of care, patient frequently crying that she is so tired but she also isn't trying to . They have plans to resume chemotherapy in 2 weeks. I did initiate goals of care discussion after learning that the cancer was metastatic; no chance of cure. They are agreeable to having palliative care consulted. Discussed with hospitalist for admission. IV fluids initiated. Lab Data 07/05/24 21:15 07/05/24 21:15 Labs: Lab Results 07/05/24 07/05/24 Range/Units 21:15 21:56 WBC 17.8 H (4.5-10.0) K/mm3 RBC 2.91 L (4.2-5.4) M/mm3 Hgb 10.0 L (12.0-15.0) g/dL Hct 31.9 L (37.0-47.0) % MCV 109.6 H (80-100) fl MCH 34.4 H (26-34) pg MCHC 31.3 L (32-36) g/dl RDW 23.0 H (11.5-14.5) % Plt Count 43 L (150-375) k/mm3 MPV Not Reportable Immature Gran % (Auto) Not Reportable Neut % (Auto) Not Reportable Lymph % (Auto) Not Reportable [place] % (Auto) Not Reportable Eos % (Auto) Not Reportable Baso % (Auto) Not Reportable Lymph # (Auto) Not Reportable [place] # (Auto) Not Reportable Eos # (Auto) Not Reportable Baso # (Auto) Not Reportable Abs Immat Gran (auto) Not Reportable Absolute Neuts (auto) Not Reportable Absolute Nucleated RBC Not Reportable Total Counted 100 Neutrophils % (Manual) 73 (46-73) % Band Neutrophils % 7 H (0-6) % Lymphocytes % (Manual) 6 L (18-44) % Monocytes % (Manual) 5 (3-9) % Metamyelocytes % 4 % Myelocytes % 5 % Nucleated RBC % Not Reportable Abs Neuts (Manual) 14.24 H (1.7-7.2) K/mm3 Abs Lymphs (Manual) 1.06 L (1.1-4.5) K/mm3 Abs Monocytes (Manual) 0.89 (0.1-0.90) K/mm3 Nucleated RBCs 15 % Platelet Estimate Decreased (Adequate) % Immature Plt Fraction 9.3 (0.9-11.2) % Anisocytosis 2+ Macrocytosis 1+ (NORMAL) Ovalocytes 1+ Schistocytes None seen Sodium 140 (137-145) mmol/L Potassium 4.6 (3.4-5.0) mmol/L Chloride 110 H (98-107) mmol/L Carbon Dioxide 17 L (22-30) mmol/L Anion Gap 13 H (4-12) mmol/L BUN 58 H (7-17) mg/dL Creatinine 1.44 H (0.7-1.0) mg/dL Estim Creat Clear Calc Not Reportable Estimated GFR 36 L (59 - ) Glucose 118 H (65-110) mg/dL Calcium 10.6 H (8.4-10.2) mg/dL Total Bilirubin 1.7 H (0.2-1.3) mg/dL AST 284 H (14-36) U/L ALT 107 H (6-35) U/L Alkaline Phosphatase 653 H (38-126) U/L Total Protein 7.0 (6.3-8.2) g/dL Albumin 3.7 (3.5-5.1) g/dL Urine Color Yellow (Yellow) Urine Appearance Cloudy H (Clear) Urine pH 5.0 (5.0-9.0) Ur Specific [place] 1.019 (1.001-1.035) Urine Protein 1+ H (Negative) mg/dL Urine Glucose (UA) Negative (Negative) mg/dL Urine Ketones Trace H (Negative) mg/dL Ur Blood (Man) Negative (Negative) Urine Nitrate Negative (Negative) Urine Bilirubin Negative (Negative) Urine Urobilinogen 0.2 (<2.0) mg/dL Add Ur Microanalysis Reviewed Leukocyte Esterase Rfl Negative (Negative) KIRSTY/UL Urine RBC 0-2 (0-2) /hpf Urine WBC 0-5 (0-3) /hpf Ur Squamous Epith Cells None seen (Few) /hpf Urine Bacteria None seen /hpf Urine Casts 11-20 Hyaline Casts Present (None) /lpf Discharge Plan Discharge Clinical Impression: Breast cancer metastasized to bone, Acute dehydration, Weakness, Adult failure to thrive Patient Disposition: Still a Patient Condition: Stable
[2024-07-06] MEDS: AZITHROMYCIN 500 MG/NS 250 ML 500 MG/250 ML BAG 250 MG IVPB (04:41)
[2024-07-06 07:39] LABS: Hematocrit 28.7 % (37.0-47.0); Immature Platelet Fraction Pct 8.5 % (0.9-11.2); Mean Corpuscular HGB Conc 31.4 g/dl (32-36); Mean Corpuscular Hemoglobin 35.3 pg (26-34); Mean Corpuscular Volume 112.5 fl (80-100); Platelet Count Result 30 k/mm3 (150-375); Red Blood Count 2.55 M/mm3 (4.2-5.4); Red Cell Distribution Width 23.1 % (11.5-14.5); White Blood Count 15.1 K/mm3 (4.5-10.0)
[2024-07-06 07:49] LABS: Alanine Aminotransferase 106 U/L (6-35); Albumin Level 3.2 g/dL (3.5-5.1); Alkaline Phosphatase 574 U/L (38-126); Anion Gap 12 mmol/L (4-12); Aspartate Amino Transferase 307 U/L (14-36); Bilirubin,Total 1.5 mg/dL (0.2-1.3); Blood Urea Nitrogen 55 mg/dL (7-17); Calcium 10.2 mg/dL (8.4-10.2); Carbon Dioxide 16 mmol/L (22-30); Chloride 112 mmol/L (98-107); Estimated CRCL calculation 32 ml/min; Estimated Glomerular Filt Rate 38; Glucose 99 mg/dL (65-110); Magnesium 1.9 mg/dL (1.6-2.3); Potassium 4.3 mmol/L (3.4-5.0); Sodium 140 mmol/L (137-145)
[2024-07-06 07:50] LABS: Lactic Acid Reflex 2.6 mmol/L (0.7-2.0)
[2024-07-06 08:04] LABS: Band Neutrophils Percent 10 % (0-6); Metamyelocytes Percent 1 %; Monocytes Absolute Manual 0.15 K/mm3 (0.1-0.90); Monocytes Percent Manual 1 % (3-9); Neutrophils Absolute Manual 13.89 K/mm3 (1.7-7.2); Neutrophils Percent Manual 82 % (46-73); Nucleated Red Blood Cells 6 %; Platelet Estimate Decreased (Adequate); Total Cells Counted 100
[2024-07-06 08:05] LABS: Anisocytosis 2+; Hypochromasia 1+; Polychromasia 1+; Schistocytes Rare
[2024-07-06 08:06] LABS: Poikilocytosis 1+
--- NOTE | 2024-07-06 08:23 | PC.NURSE ---
To CT per hospital bed.
--- NOTE | 2024-07-06 08:35 | PC.NURSE ---
Returned to room from CT per hospital bed.
[2024-07-06] MEDS: FERROUS SULFATE 325 MG TABLET DR PO ×2 (08:43→16:58)
[2024-07-06] MEDS: MEGESTROL ACETATE (*CHEMO) ORAL SUSP 40 MG/ML SYR 400 MG PO (08:43)
[2024-07-06] MEDS: MULTIVITAMINS THERAPEUTIC TAB (*BKC) 1 TABLET PO (08:43)
[2024-07-06] MEDS: ASCORBIC ACID 500 MG TABLET PO ×2 (08:43→16:58)
[2024-07-06] MEDS: FOLIC ACID 0.4 MG TABLET 0.8 MG PO (08:44)
[2024-07-06] MEDS: CYANOCOBALAMIN 1,000 MCG TABLET 1000 MCG PO (08:44)
[2024-07-06] MEDS: lisinopriL 20 MG TABLET BY MOUTH (08:44)
[2024-07-06 08:51] LABS: Procalcitonin 0.9 ng/mL
[2024-07-06] MEDS: ALPRAZolam (*CRX) 0.25 MG TABLET PO (08:53)
[2024-07-06 09:33] LABS: Reflex Lactic Acid Yes or No Add Lactic
[2024-07-06] MEDS: LACTATED RINGERS 1,000 ML 125 ML IV CONT ×2 (10:11→18:43)
[2024-07-06 10:17] LABS: Lactic Acid 2.7 mmol/L (0.7-2.0)
--- NOTE | 2024-07-06 12:48 | P.PNIM_ITS ---
Progress Note: A&P Assessment and Plan (1) Sepsis: Code(s): A41.9 - Sepsis, unspecified organism Status: Acute Assessment and Plan: * Meets sepsis criteria: Tachycardia- 115, WBC 15.1, Lactic acid 2.7, and pneum onia. * Receiving Azithromycin and Rocephin. * BC x2 pending. * LR @ 125 ml/hr. * Lactic acid 2.7>2.3. Continue to trend q 6. (2) Pneumonia: Code(s): J18.9 - Pneumonia, unspecified organism Status: Acute Assessment and Plan: * Chest x-ray showing multifocal infiltrates again with a left-shifted white count. * Azithromycin and Rocephin * Lactic acid 2.7, >2.3. Continue to trend q 6. * Procalcitonin 0.9, blood cultures x2 pending. * Sputum culture ordered * Provide supportive care * Meets sepsis criteria: Tachycardia- 115, WBC 15.1, Lactic acid 2.7, and pneumonia. * LR @ 125 ml/hr. (3) Adult failure to thrive: Code(s): R62.7 - Adult failure to thrive Status: Acute Assessment and Plan: * Calorie deficit malnutrition * Secondary to metastatic disease and acute infection * Consult dietary * PT and OT consult * Continue Megace * LR @ 125 ml/hr. * Palliative care consult placed. (4) Weakness: Code(s): R53.1 - Weakness Status: Acute Assessment and Plan: * Generalized, nonfocal * Fall precautions * Etiology most likely due to acute infection and/or metastatic disease * Consult PT and OT (5) Altered mental status: Code(s): R41.82 - Altered mental status, unspecified Status: Acute Assessment and Plan: * Etiology infection versus metastasis versus age-related changes * CT scan brain ordered * Trend labs and vital signs. * Provide for safety * No focal deficits. (6) Metastatic disease: Code(s): C79.9 - Secondary malignant neoplasm of unspecified site Status: Acute Assessment and Plan: * Acute on chronic. Patient with known breast cancer with metastasis to the bone and according to imaging performed recently at [facility] showing lesion on liver that is highly concerning for metastasis and does correlate with patient's transaminitis and elevated bilirubin and alk-phos. * Consult Dr. Rivera from Oncology while admitted for opinion as he is patient's oncologist. * Patient appears acutely ill. Would be good candidate for palliative/hospice care as she is tearful stating, I just want the pain to stop. * Patient chooses to be full code at this time as she is undecided on what she wants. * Concerned that patient will not be strong enough to resume chemotherapy on July 28. (7) GERD (gastroesophageal reflux disease): Code(s): K21.9 - Gastro-esophageal reflux disease without esophagitis Status: Chronic Assessment and Plan: * Continue famotidine (8) Anemia: Code(s): D64.9 - Anemia, unspecified Status: Chronic Assessment and Plan: * Thrombocytopenia and hemoglobin of 9.0. * No signs of acute bleeding * Continue to monitor and trend labs * Oncology consulted Subjective Date/time seen: 07/06/24 12:48 Interval history: Patient sitting up in bed with at bedside. Patient denies chest pain, palpitations, headache, dizziness, nausea, or vomiting. Patient reports having a poor appetite and not wanting to eat. asking about patient receiving a feeding tube. Patient states that she does not want a feeding tube. Patient states that she may be able to eat scrambled eggs and chocolate ice cream, nurse to notify dietary department. Review of Systems Review of Systems: All systems reviewed & are unremarkable except as noted in HPI and below Exam Const: General: comfortable and no acute distress Resp: Effort & Inspection: normal respiratory effort Auscultation: diminished lung sounds Cardio: Rate: regular rate Rhythm: regular rhythm Heart sounds: Murmur heart sound present GI: GI Palp: Yes Soft to palpation Auscultation: normal bowel sounds Neuro: Speech: normal speech Extrem: General: pedal edema bilaterally (trace edema. ) Other: trace edema bilateral hands. Psych: Mental Status: mental status grossly normal Other: flat affect. Objective Data Vital Signs Vital Signs: Vital Signs - 24 hr 07/05/24 18:40 07/06/24 02:04 07/06/24 02:58 Temperature 97.6 F 97 F L Pulse Rate 115 H 89 114 H Respiratory Rate 16 22 H 18 Blood Pressure 145/81 H 144/62 H 160/70 H Pulse Oximetry 95 93 94 Oxygen Delivery Room Air Oxygen Flow Rate 07/06/24 03:09 07/06/24 05:18 07/06/24 05:45 Temperature 97.4 F L Pulse Rate 124 H 115 H Respiratory Rate 18 Blood Pressure 165/93 H Pulse Oximetry 94 94 Oxygen Delivery Room Air Nasal Cannula Oxygen Flow Rate 2 Intake/Output Intake/Output: Intake & Output 07/03/24 07/04/24 07/05/24 07/06/24 23:59 23:59 23:59 23:59 Intake Total 1000 1300 Balance 1000 1300 Meds/Results Medications: Active Medications Generic Name Dose Route Start Last Admin Trade Name Freq PRN Reason Stop Dose Admin Acetaminophen 1,000 mg 07/06/24 03:02 Acetaminophen 500 Mg Tablet PO Q8H PRN Pain 1-6 Alprazolam 0.25 mg 07/06/24 08:33 07/06/24 08:53 Alprazolam (*Crx) 0.25 Mg Tablet PO 0.25 mg BID PRN Administration Anxiety Ascorbic Acid 500 mg 07/06/24 09:00 07/06/24 08:43 Ascorbic Acid 500 Mg Tablet PO 500 mg BID AMADO Administration Cyanocobalamin 1,000 mcg 07/06/24 09:00 07/06/24 08:44 Cyanocobalamin 1,000 Mcg Tablet PO 1,000 mcg QAM [facility] Administration Diphenoxylate HCl/Atropine 1 tablet 07/06/24 03:02 Diphenoxylate/Atropine (*Crx) 2.5 Mg Tablet PO PRN PRN Diarrhea Famotidine 20 mg 07/06/24 18:00 Famotidine 20 Mg Tablet PO QPM AMADO Ferrous Sulfate 325 mg 07/06/24 09:00 07/06/24 08:43 Ferrous Sulfate [address] PO 325 mg BID AMADO Administration Folic Acid 0.8 mg 07/06/24 09:00 07/06/24 08:44 Folic Acid 0.4 Mg Tablet PO 0.8 mg QAM AMADO Administration Heparin Sodium (Beef Lung) 50 units 07/07/24 09:00 Heparin Flush 50 Units/5 Ml Syringe IV PUSH QAM AMADO Heparin Sodium (Beef Lung) 50 units 07/06/24 11:03 Heparin Flush 50 Units/5 Ml Syringe IV PUSH PRN PRN after intermittent infusion Heparin Sodium (Beef Lung) 50 units 07/06/24 11:03 Heparin Flush 50 Units/5 Ml Syringe IV PUSH PRN PRN after blood draws Heparin Sodium (Porcine) 500 units 07/06/24 11:03 Heparin Sodium Lock Flush 500 Units/5 Ml Syringe IV PUSH PRN PRN see comments below Azithromycin 500 mg in 250 mls @ 250 mls/hr 07/06/24 05:00 07/06/24 05:41 Zithromax IVPB Infused Q24H AMADO Infusion Lactated Ringer's 1,000 mls @ 125 mls/hr 07/06/24 09:50 07/06/24 10:11 Lr - Lactated Ringers Iv IV CONT 125 mls/hr .Q8H AMADO Administration Cefepime HCl 2 gm in 50 mls @ 100 mls/hr 07/06/24 11:00 Maxipime 2 Gm/Ns 50 Ml IVPB Q12HR [facility] Lisinopril 20 mg 07/06/24 09:00 07/06/24 08:44 Lisinopril 20 Mg Tablet BY MOUTH 20 mg DAILY AMADO Administration Loperamide HCl 2 mg 07/06/24 03:02 Loperamide Hcl 2 Mg Capsule PO PRN PRN Diarrhea Megestrol Acetate 400 mg 07/06/24 09:00 07/06/24 08:43 Megestrol Acetate (*Chemo) Oral Susp 40 Mg/Ml Syr PO 400 mg DAILY [facility] Administration Morphine Sulfate 4 mg 07/06/24 03:09 Morphine Sulfate (*Crx) 4 Mg/Ml Inj IV PUSH Q4H PRN Pain Rated 7-10 Multivitamins Therapeutic 1 tablet 07/06/24 09:00 07/06/24 08:43 Multivitamins Therapeutic Tab (*Bkc) PO 1 tablet DAILY AMADO Administration Ondansetron HCl 4 mg 07/06/24 03:09 Ondansetron Inj 4 Mg/2 Ml Vial IV PUSH Q4H PRN Nausea And Vomiting Sodium Chloride 10 ml 07/06/24 14:00 Central Line Flush IV PUSH Q8HR [facility] Radiology Results: ITS Impressions Chest X-Ray 07/05/24 21:44 IMPRESSION: Multifocal infiltrates, as detailed above. Head CT 07/06/24 08:46 IMPRESSION: 1. 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 No other acute intracranial process. 2. Mild scattered white matter hypoattenuation consistent with chronic small vessel ischemic disease. Labs Labs: Laboratory Results - last 24 hr 07/05/24 07/05/24 07/06/24 21:15 21:56 07:25 WBC 17.8 H 15.1 H RBC 2.91 L 2.55 L Hgb 10.0 L 9.0 L Hct 31.9 L 28.7 L MCV 109.6 H 112.5 H MCH 34.4 H 35.3 H MCHC 31.3 L 31.4 L RDW 23.0 H 23.1 H Plt Count 43 L 30 L MPV Not Reportable TNP Immature Gran % (Auto) Not Reportable Not Reportable Neut % (Auto) Not Reportable Not Reportable Lymph % (Auto) Not Reportable Not Reportable [place] % (Auto) Not Reportable Not Reportable Eos % (Auto) Not Reportable Not Reportable Baso % (Auto) Not Reportable Not Reportable Lymph # (Auto) Not Reportable Not Reportable [place] # (Auto) Not Reportable Not Reportable Eos # (Auto) Not Reportable Not Reportable Baso # (Auto) Not Reportable Not Reportable Abs Immat Gran (auto) Not Reportable Not Reportable Absolute Neuts (auto) Not Reportable Not Reportable Absolute Nucleated RBC Not Reportable Not Reportable Total Counted 100 100 Neutrophils % (Manual) 73 82 H Band Neutrophils % 7 H 10 H Lymphocytes % (Manual) 6 L 6.0 L Monocytes % (Manual) 5 1 L Metamyelocytes % 4 1 Myelocytes % 5 Nucleated RBC % Not Reportable Not Reportable Abs Neuts (Manual) 14.24 H 13.89 H Abs Lymphs (Manual) 1.06 L 0.90 L Abs Monocytes (Manual) 0.89 0.15 Nucleated RBCs 15 6 Platelet Estimate Decreased Decreased % Immature Plt Fraction 9.3 8.5 Polychromasia 1+ Hypochromasia 1+ Poikilocytosis 1+ Anisocytosis 2+ 2+ Macrocytosis 1+ Ovalocytes 1+ Schistocytes None seen Rare Sodium 140 Potassium 4.6 Chloride 110 H Carbon Dioxide 17 L Anion Gap 13 H BUN 58 H Creatinine 1.44 H Estim Creat Clear Calc Not Reportable Estimated GFR 36 L Glucose 118 H Lactic Acid Calcium 10.6 H Magnesium Total Bilirubin 1.7 H AST 284 H ALT 107 H Alkaline Phosphatase 653 H Total Protein 7.0 Albumin 3.7 Procalcitonin Urine Color Yellow Urine Appearance Cloudy H Urine pH 5.0 Ur Specific [place] 1.019 Urine Protein 1+ H Urine Glucose (UA) Negative Urine Ketones Trace H Ur Blood (Man) Negative Urine Nitrate Negative Urine Bilirubin Negative Urine Urobilinogen 0.2 Add Ur Microanalysis Reviewed Leukocyte Esterase Rfl Negative Urine RBC 0-2 Urine WBC 0-5 Ur Squamous Epith Cells None seen Urine Bacteria None seen Urine Casts 11-20 Hyaline Casts Present 07/06/24 07/06/24 07:26 09:50 WBC RBC Hgb Hct MCV MCH MCHC RDW Plt Count MPV Immature Gran % (Auto) Neut % (Auto) Lymph % (Auto) [place] % (Auto) Eos % (Auto) Baso % (Auto) Lymph # (Auto) [place] # (Auto) Eos # (Auto) Baso # (Auto) Abs Immat Gran (auto) Absolute Neuts (auto) Absolute Nucleated RBC Total Counted Neutrophils % (Manual) Band Neutrophils % Lymphocytes % (Manual) Monocytes % (Manual) Metamyelocytes % Myelocytes % Nucleated RBC % Abs Neuts (Manual) Abs Lymphs (Manual) Abs Monocytes (Manual) Nucleated RBCs Platelet Estimate % Immature Plt Fraction Polychromasia Hypochromasia Poikilocytosis Anisocytosis Macrocytosis Ovalocytes Schistocytes Sodium 140 Potassium 4.3 Chloride 112 H Carbon Dioxide 16 L Anion Gap 12 BUN 55 H Creatinine 1.37 H Estim Creat Clear Calc 32 Estimated GFR 38 L Glucose 99 Lactic Acid 2.6 H 2.7 H Calcium 10.2 Magnesium 1.9 Total Bilirubin 1.5 H AST 307 H ALT 106 H Alkaline Phosphatase 574 H Total Protein 6.0 L Albumin 3.2 L Procalcitonin 0.9 Urine Color Urine Appearance Urine pH Ur Specific [place] Urine Protein Urine Glucose (UA) Urine Ketones Ur Blood (Man) Urine Nitrate Urine Bilirubin Urine Urobilinogen Add Ur Microanalysis Leukocyte Esterase Rfl Urine RBC Urine WBC Ur Squamous Epith Cells Urine Bacteria Urine Casts Hyaline Casts Quality VTE Prophylaxis VTE prophylaxis: mechanical ordered
--- NOTE | 2024-07-06 13:03 | PCPTNOTE ---
Attempted PT evaluation. Pt refused without reason. Nurse aware. Will follow.
[2024-07-06] MEDS: CEFEPIME 2 GM/NS 50 ML 2 GM/50 ML BAG IVPB ×2 (13:48→22:17)
[2024-07-06 16:42] LABS: Lactic Acid Reflex 2.3 mmol/L (0.7-2.0)
[2024-07-06] MEDS: FAMOTIDINE 20 MG TABLET PO (16:58)
--- NOTE | 2024-07-06 17:46 | WPDONCCN ---
Assessment and Plan Assessment and plan (1) Metastatic malignant neoplasm to breast: Code(s): C79.81 - Secondary malignant neoplasm of breast Status: Acute Assessment and Plan: Metastatic breast cancer with bone involvement diagnosed in October 2021. Patient was on chemotherapy with Enhertu started in April 21 but further treatment has been placed on hold due to recurrent pneumonias and tiredness and fatigue. She was recently seen in the office and CT scan abdomen pelvis done on June 23 discussed with the patient that showed extensive bone metastasis with hypodense liver lesions suspicious for metastatic disease. My plan was to perform PET scan before restarting any further therapy. Unfortunately she is back in the hospital with recurrent pneumonia with generalized tiredness and fatigue and poor appetite. Labs also showed worsening of thrombocytopenia. She will not be a candidate for any further chemotherapy given her declining performance status. I have discussed with the and the patient. I would suggest palliative/hospice care at this time. I will discontinue chemotherapy plan and PET scan. HPI Data of Consult Date/Time: 07/06/24 17:46 Requesting Physician: Dre Russell MD Primary Care Provider: Alexey Medrano DO Consult Narrative Narrative: Syeda Marks is a 73 year old female with history of metastatic breast cancer with bone metastasis diagnosed in October 2021. 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 Patient is currently on treatment with and HER2 started in April 2023 due to metastatic disease. She was last seen in the office just last week. Her last CT scan abdomen and pelvis done on May 2024 showed extensive bone metastasis with hypodense liver lesions suspicious for metastatic disease. There was patchy consolidation throughout the lungs likely worsening pulmonary edema versus pneumonia. She was recently treated for pneumonia and just started feeling better when I saw her in my office last time. My plan was to order the PET scan to assess the liver findings. Unfortunately patient got admitted to the hospital with generalized weakness and shortness of breath. She has been eating poorly and has been losing weight with loss of appetite. He continues to have dry cough she has been getting more confused. She seems to be quite depressed. Labs showed elevated WBC count. She was anemic with hemoglobin of 9 and platelet count has been dropping now down to 30. She denies any bleeding. Head CT was performed that showed old infarction but no acute intracranial process. Review of Systems Review of Systems: Review of system as per HPI otherwise negative [facility] Past Medical History Medical History (Updated 07/06/24 @ 16:39 by Melanie Gamboa APRN) Altered mental status Metastatic disease Chemotherapy induced diarrhea Breast cancer metastasized to bone History of breast cancer Diagnosed in 2019 status post right-sided lumpectomy and sentinel lymph node biopsy in 2019. Found to have recurrent metastatic disease and was started on chemotherapy in 2023. Anemia GERD (gastroesophageal reflux disease) HTN (hypertension) Surgical History Surgical History Hx laparoscopic cholecystectomy 12/30/[address] Haro History of lumpectomy Hx of appendectomy Open appendectomy Family History Family History Mother Patient's mother is Father Cerebrovascular accident Social History Social History Social History: Surrogate medical decision maker: Moe Marks, spouse. Code status: full code. Smoking status: Never smoker Second hand tobacco smoke exposure: Yes Alcohol intake: never Drinks per week: 1 Substance use: never Substance use type: does not use Do You Feel Safe in your Home?: Yes Lack of Transportation: No Lack of Food: Never True Current Housing: I Have Housing Concerned About Future Housing: No Difficulty Paying Gas/Electric Bills: No Difficulty Paying for Meds: No Currently Unemployed: No Education: Associate Degree Difficulty w/ Childcare or Family Care: No Living arrangements: with family Additional living arrangements comments: Lives with in [place]. They have 1 child. Spiritual care concerns: No Meds Home Medications and Allergies Home Medications ?Medication ?Instructions ?Recorded ?Confirmed ?Type ascorbic acid (vitamin C) 500 mg 500 mg PO BID 12/17/18 07/06/24 History tablet famotidine 20 mg tablet 20 mg PO DAILY 12/17/18 07/06/24 History multivitamin 1 tablet PO DAILY 12/17/18 07/06/24 History acetaminophen 500 mg capsule 1,000 mg PO Q8H PRN Pain 10/07/21 07/06/24 History ferrous sulfate 325 mg (65 mg 325 mg PO BID 10/07/21 07/06/24 History iron) tablet vitamin B12 1 mg-folic acid 0.8 mg 1,000 tablet PO DAILY 07/23/23 07/06/24 History tablet diphenoxylate-atropine 2.5 1 tablet PO PRN PRN Diarrhea 12/25/23 07/06/24 History mg-0.025 mg tablet ondansetron 8 mg disintegrating 8 mg PO Q8H PRN Nausea 12/25/23 07/06/24 History tablet loperamide 2 mg capsule 2 mg PO PRN PRN Diarrhea 12/26/23 07/06/24 History megestrol 400 mg/10 mL (40 mg/mL) 400 mg PO DAILY 05/31/24 07/06/24 History oral suspension prochlorperazine maleate 10 mg 10 mg PO Q8H PRN nausea and 06/18/24 07/06/24 History tablet vomiting lisinopril 20 mg tablet See Rx Instructions .Route 06/30/24 07/06/24 Rx .COMPLEX #90 tabs magnesium citrate 34 mg chewable 34 mg PO BID 07/06/24 07/06/24 History tablet prednisone 10 mg tablet 10 mg PO DAILY 07/06/24 07/06/24 History Allergies Allergy/AdvReac Type Severity Reaction Status Date / Time amoxicillin (From Augmentin) AdvReac Nausea and Verified 06/18/24 14:52 Vomiting clavulanic acid (From AdvReac Nausea and Verified 06/18/24 14:52 Augmentin) Vomiting Vital Signs Vital Signs - 24 hr 07/05/24 18:40 07/06/24 02:04 07/06/24 02:58 Temperature 36.4 C 36.1 C L Pulse Rate 115 H 89 114 H Respiratory Rate 16 22 H 18 Blood Pressure 145/81 H 144/62 H 160/70 H Pulse Oximetry 95 93 94 Oxygen Delivery Room Air Oxygen Flow Rate 07/06/24 03:09 07/06/24 05:18 07/06/24 05:45 Temperature 36.3 C L Pulse Rate 124 H 115 H Respiratory Rate 18 Blood Pressure 165/93 H Pulse Oximetry 94 94 Oxygen Delivery Room Air Nasal Cannula Oxygen Flow Rate 2 07/06/24 14:00 Temperature 36.6 C Pulse Rate 110 H Respiratory Rate 22 H Blood Pressure 131/59 L Pulse Oximetry 93 Oxygen Delivery Oxygen Flow Rate Exam Narrative: Lungs occasional wheezing and rhonchi bilaterally Cardiovascular regular rate rhythm no murmurs Abdomen soft nontender nondistended bowel sounds are positive Extremities no edema Mental status she is alert but seems to be quite depressed and tearful Results Labs 07/06/24 07:25 07/06/24 07:26 Labs: Short CBC 07/05/24 07/06/24 Range/Units 21:15 07:25 WBC 17.8 H 15.1 H (4.5-10.0) K/mm3 Hgb 10.0 L 9.0 L (12.0-15.0) g/dL Hct 31.9 L 28.7 L (37.0-47.0) % Plt Count 43 L 30 L (150-375) k/mm3 BMP 07/05/24 07/06/24 21:15 07:26 Sodium 140 140 Potassium 4.6 4.3 Chloride 110 H 112 H Carbon Dioxide 17 L 16 L BUN 58 H 55 H Creatinine 1.44 H 1.37 H Glucose 118 H 99 Calcium 10.6 H 10.2 Liver Function 07/05/24 07/06/24 Range/Units 21:15 07:26 Total Bilirubin 1.7 H 1.5 H (0.2-1.3) mg/dL AST 284 H 307 H (14-36) U/L ALT 107 H 106 H (6-35) U/L Alkaline Phosphatase 653 H 574 H (38-126) U/L Albumin 3.7 3.2 L (3.5-5.1) g/dL Urine 07/05/24 Range/Units 21:56 Urine Color Yellow (Yellow) Urine Appearance Cloudy H (Clear) Urine pH 5.0 (5.0-9.0) Ur Specific [place] 1.019 (1.001-1.035) Urine Protein 1+ H (Negative) mg/dL Urine Glucose (UA) Negative (Negative) mg/dL
[2024-07-06] MEDS: CENTRAL LINE FLUSH 10 ML IV PUSH (22:18)
[2024-07-06 23:38] LABS: Lactic Acid Reflex 2.1 mmol/L (0.7-2.0)
[2024-07-07] MEDS: HYDROmorphone HCL INJ (*CRX) 2 MG/ML VIAL 1 MG IV PUSH ×5 (00:21→21:14)
[2024-07-07 01:26] LABS: Reflex Lactic Acid Yes or No Add Lactic
[2024-07-07 02:26] LABS: Lactic Acid 1.8 mmol/L (0.7-2.0)
[2024-07-07] MEDS: LACTATED RINGERS 1,000 ML 125 ML IV CONT ×2 (03:59→17:30)
[2024-07-07] MEDS: AZITHROMYCIN 500 MG/NS 250 ML 500 MG/250 ML BAG 250 MG IVPB (04:47)
[2024-07-07] MEDS: CENTRAL LINE FLUSH 10 ML IV PUSH ×2 (04:53→20:54)
[2024-07-07] MEDS: oxyCODONE HCL (*CRX) 5 MG TAB IR PO (05:03)
[2024-07-07 05:27] LABS: Hematocrit 26.6 % (37.0-47.0); Hemoglobin 8.2 g/dL (12.0-15.0); Immature Platelet Fraction Pct 9.5 % (0.9-11.2); Mean Corpuscular HGB Conc 30.8 g/dl (32-36); Mean Corpuscular Hemoglobin 34.9 pg (26-34); Mean Corpuscular Volume 113.2 fl (80-100); Red Blood Count 2.35 M/mm3 (4.2-5.4); Red Cell Distribution Width 23.4 % (11.5-14.5); White Blood Count 10.4 K/mm3 (4.5-10.0)
[2024-07-07 05:47] LABS: Albumin Level 2.8 g/dL (3.5-5.1); Alkaline Phosphatase 527 U/L (38-126); Anion Gap 10 mmol/L (4-12); Aspartate Amino Transferase 339 U/L (14-36); Bilirubin,Total 1.4 mg/dL (0.2-1.3); Blood Urea Nitrogen 46 mg/dL (7-17); Calcium 9.9 mg/dL (8.4-10.2); Carbon Dioxide 19 mmol/L (22-30); Chloride 113 mmol/L (98-107); Estimated CRCL calculation 34 ml/min; Estimated Glomerular Filt Rate 42; Glucose 87 mg/dL (65-110); Magnesium 1.8 mg/dL (1.6-2.3); Potassium 4.2 mmol/L (3.4-5.0); Sodium 142 mmol/L (137-145)
[2024-07-07 05:49] LABS: Lactic Acid Reflex 4.7 mmol/L (0.7-2.0)
[2024-07-07 05:54] LABS: Alanine Aminotransferase 104 U/L (6-35); Platelet Count Result 20 k/mm3 (150-375)
[2024-07-07 05:57] LABS: Band Neutrophils Percent 7 % (0-6); Basophils Percent Manual 2 % (0-1); Eosinophils Percent Manual 1 % (0-4); Lymphocytes Absolute Manual 1.56 K/mm3 (1.1-4.5); Lymphocytes Percent Manual 15 % (18-44); Monocytes Absolute Manual 0.62 K/mm3 (0.1-0.90); Monocytes Percent Manual 6 % (3-9); Neutrophils Percent Manual 68 % (46-73); Total Cells Counted 100
[2024-07-07 05:58] LABS: Metamyelocytes Percent 1 %; Platelet Estimate Decreased (Adequate); Tear Drop Cells 1+
[2024-07-07 05:59] LABS: Nucleated Red Blood Cells 3 %; Ovalocytes 1+; Schistocytes None Seen
[2024-07-07 06:00] VITALS: BP 194/71; PULSE 118; RESP 20; TEMP 35.8; O2SAT 93
[2024-07-07 06:00] LABS: Anisocytosis 1+
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
[2024-07-07] MEDS: LORazepam INJ (*CRX) 2 MG/ML VIAL 0.5 MG IV PUSH (08:30)
--- NOTE | 2024-07-07 08:45 | P.PNIM_ITS ---
Progress Note: A&P Assessment and Plan (1) Sepsis: Code(s): A41.9 - Sepsis, unspecified organism Status: Acute Assessment and Plan: * Meets sepsis criteria: Tachycardia- 115, WBC 15.1, Lactic acid 2.7, and pneum onia. * Receiving Azithromycin and Rocephin. * BC x2 no growth to date. * LR @ 125 ml/hr. * Lactic acid 2.7>2.3>2.1>1.8>4.7. Patient changed to comfort measures, stop blood draws. (2) Pneumonia: Code(s): J18.9 - Pneumonia, unspecified organism Status: Acute Assessment and Plan: * Chest x-ray showing multifocal infiltrates again with a left-shifted white count. * Azithromycin and Rocephin * Procalcitonin 0.9, blood cultures x2 no growth to date. * Sputum culture ordered * Provide supportive care * Meets sepsis criteria: Tachycardia- 115, WBC 15.1, Lactic acid 2.7, and pneumonia. * WBC today 10.4. * LR @ 125 ml/hr. (3) Adult failure to thrive: Code(s): R62.7 - Adult failure to thrive Status: Acute Assessment and Plan: * Calorie deficit malnutrition * Secondary to metastatic disease and acute infection * Consult dietary * PT and OT consult * Continue Megace * LR @ 125 ml/hr. * Hospice consult placed. Patient comfort care today and to bed discharged on hospice tomorrow. * Dilaudid 1 mg IVP q 2 PRN and Ativan 1 mg ivp q 2 PRN. (4) Weakness: Code(s): R53.1 - Weakness Status: Acute Assessment and Plan: * Generalized, nonfocal * Fall precautions * Etiology most likely due to acute infection and/or metastatic disease. * Consult PT and OT (5) Altered mental status: Code(s): R41.82 - Altered mental status, unspecified Status: Acute Assessment and Plan: * Etiology infection versus metastasis versus age-related changes * CT scan brain showed: IMPRESSION: 1. 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 No other acute intracranial process. 2. Mild scattered white matter hypoattenuation consistent with chronic small vessel ischemic disease. (6) Metastatic disease: Code(s): C79.9 - Secondary malignant neoplasm of unspecified site Status: Acute Assessment and Plan: * Acute on chronic. Patient with known breast cancer with metastasis to the bone and according to imaging performed recently at [facility] showing lesion on liver that is highly concerning for metastasis and does correlate with patient's transaminitis and elevated bilirubin and alk-phos. * Consult Dr. Rivera from Oncology while admitted for opinion as he is patient's oncologist. * Patient appears acutely ill. Would be good candidate for palliative/hospice care as she is tearful stating, I just want the pain to stop. Hospice consult completed today by cheryl Jacobsen tomorrow on hospice. * Concerned that patient will not be strong enough to resume chemotherapy on July 28. * Oncology seen patient on 07/06/24. Chemotherapy plan and PET scan discontinued due to her not being a candidate for any further chemotherapy given her declining performance status. (7) GERD (gastroesophageal reflux disease): Code(s): K21.9 - Gastro-esophageal reflux disease without esophagitis Status: Chronic Assessment and Plan: * Continue famotidine (8) Anemia: Code(s): D64.9 - Anemia, unspecified Status: Chronic Assessment and Plan: * Thrombocytopenia and hemoglobin of 8.2. * No signs of acute bleeding * Oncology consulted- see note. Subjective Date/time seen: 07/07/24 08:45 Interval history: Patient uncomfortable this morning squirming in bed stating and waving arms. Asking for God to help her. Sister at bedside. Called and spoke with Moe. Moe and daughter agreeable that they would like to change patient to a DNR, make her comfortable, and place a hospice consult. Review of Systems Review of Systems: All systems reviewed & are unremarkable except as noted in HPI and below Exam Const: General: uncomfortable Other: restless Resp: Effort & Inspection: normal respiratory effort Auscultation: rhonchi and diminished lung sounds Cardio: Rate: tachycardic GI: GI Palp: Yes Soft to palpation Auscultation: normal bowel sounds Neuro: Speech: normal speech Extrem: General: pedal edema bilaterally (trace) Other: Trace edema bilateral hands. Psych: Mental Status: mental status grossly normal Affect: Anxious affect present Objective Data Vital Signs Vital Signs: Vital Signs - 24 hr 07/06/24 14:00 07/06/24 20:00 07/06/24 20:30 Temperature 97.8 F Pulse Rate 110 H 101 H Respiratory Rate 22 H 16 Blood Pressure 131/59 L Pulse Oximetry 93 94 92 Oxygen Delivery Nasal Cannula Nasal Cannula Oxygen Flow Rate 3 3 07/06/24 21:00 07/07/24 06:00 Temperature 96.3 F L 96.5 F L Pulse Rate 103 H 118 H Respiratory Rate 16 20 Blood Pressure 156/85 H 194/71 H Pulse Oximetry 96 93 Oxygen Delivery Oxygen Flow Rate Intake/Output Intake/Output: Intake & Output 07/04/24 07/05/24 07/06/24 07/07/24 23:59 23:59 23:59 23:59 Intake Total 1000 3190 1400 Output Total 900 Balance 1000 3190 500 Meds/Results Medications: Active Medications Generic Name Dose Route Start Last Admin Trade Name Freq PRN Reason Stop Dose Admin Acetaminophen 1,000 mg 07/06/24 03:02 Acetaminophen 500 Mg Tablet PO Q8H PRN Pain 1-6 Ascorbic Acid 500 mg 07/06/24 09:00 07/06/24 16:58 Ascorbic Acid 500 Mg Tablet PO 500 mg BID AMADO Administration Cyanocobalamin 1,000 mcg 07/06/24 09:00 07/06/24 08:44 Cyanocobalamin 1,000 Mcg Tablet PO 1,000 mcg QAM AMADO Administration Diphenoxylate HCl/Atropine 1 tablet 07/06/24 03:02 Diphenoxylate/Atropine (*Crx) 2.5 Mg Tablet PO PRN PRN Diarrhea Famotidine 20 mg 07/06/24 18:00 07/06/24 16:58 Famotidine 20 Mg Tablet PO 20 mg QPM AMADO Administration Ferrous Sulfate 325 mg 07/06/24 09:00 07/06/24 16:58 Ferrous Sulfate [address] PO 325 mg BID AMADO Administration Folic Acid 0.8 mg 07/06/24 09:00 07/06/24 08:44 Folic Acid 0.4 Mg Tablet PO 0.8 mg QAM AMADO Administration Heparin Sodium (Beef Lung) 50 units 07/07/24 09:00 Heparin Flush 50 Units/5 Ml Syringe IV PUSH QAM AMADO Heparin Sodium (Beef Lung) 50 units 07/06/24 11:03 Heparin Flush 50 Units/5 Ml Syringe IV PUSH PRN PRN after intermittent infusion Heparin Sodium (Beef Lung) 50 units 07/06/24 11:03 07/07/24 05:08 Heparin Flush 50 Units/5 Ml Syringe IV PUSH 50 units PRN PRN Administration after blood draws Heparin Sodium (Porcine) 500 units 07/06/24 11:03 Heparin Sodium Lock Flush 500 Units/5 Ml Syringe IV PUSH PRN PRN see comments below Hydromorphone HCl 1 mg 07/06/24 23:56 07/07/24 08:10 Hydromorphone Hcl Inj (*Crx) 2 Mg/Ml Vial IV PUSH 1 mg Q3H PRN Administration Pain Rated 7-10 Azithromycin 500 mg in 250 mls @ 250 mls/hr 07/06/24 05:00 07/07/24 05:47 Zithromax IVPB Infused Q24H AMADO Infusion Lactated Ringer's 1,000 mls @ 125 mls/hr 07/06/24 09:50 07/07/24 03:59 Lr - Lactated Ringers Iv IV CONT 125 mls/hr .Q8H AMADO Administration Cefepime HCl 2 gm in 50 mls @ 100 mls/hr 07/06/24 11:00 07/06/24 22:47 Maxipime 2 Gm/Ns 50 Ml IVPB Infused Q12HR AMADO Infusion Lisinopril 20 mg 07/06/24 09:00 07/06/24 08:44 Lisinopril 20 Mg Tablet BY MOUTH 20 mg DAILY AMADO Administration Loperamide HCl 2 mg 07/06/24 03:02 Loperamide Hcl 2 Mg Capsule PO PRN PRN Diarrhea Lorazepam 0.5 mg 07/07/24 08:17 Lorazepam Inj (*Crx) 2 Mg/Ml Vial IV PUSH Q6H PRN Anxiety Megestrol Acetate 400 mg 07/06/24 09:00 07/06/24 08:43 Megestrol Acetate (*Chemo) Oral Susp 40 Mg/Ml Syr PO 400 mg DAILY AMADO Administration Multivitamins Therapeutic 1 tablet 07/06/24 09:00 07/06/24 08:43 Multivitamins Therapeutic Tab (*Bkc) PO 1 tablet DAILY AMADO Administration Ondansetron HCl 4 mg 07/06/24 03:09 Ondansetron Inj 4 Mg/2 Ml Vial IV PUSH Q4H PRN Nausea And Vomiting Oxycodone HCl 5 mg 07/06/24 23:56 07/07/24 05:03 Oxycodone Hcl (*Crx) 5 Mg Tab Ir PO 5 mg Q4H PRN Administration Pain 4-10 Sodium Chloride 10 ml 07/06/24 14:00 07/07/24 04:53 Central Line Flush IV PUSH 10 ml Q8HR AMADO Administration Radiology Results: ITS Impressions Chest X-Ray 07/05/24 21:44 IMPRESSION: Multifocal infiltrates, as detailed above. Head CT 07/06/24 08:46 IMPRESSION: 1. 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 No other acute intracranial process. 2. Mild scattered white matter hypoattenuation consistent with chronic small vessel ischemic disease. Labs Labs: Laboratory Results - last 24 hr 07/06/24 07/06/24 07/06/24 07:26 09:50 16:06 WBC RBC Hgb Hct MCV MCH MCHC RDW Plt Count MPV Immature Gran % (Auto) Neut % (Auto) Lymph % (Auto) [place] % (Auto) Eos % (Auto) Baso % (Auto) Lymph # (Auto) [place] # (Auto) Eos # (Auto) Baso # (Auto) Abs Immat Gran (auto) Absolute Neuts (auto) Absolute Nucleated RBC Total Counted Neutrophils % (Manual) Band Neutrophils % Lymphocytes % (Manual) Monocytes % (Manual) Eosinophils % (Manual) Basophils % (Manual) Metamyelocytes % Nucleated RBC % Abs Neuts (Manual) Abs Lymphs (Manual) Abs Monocytes (Manual) Absolute Eos (Manual) Abs Basophils (Manual) Nucleated RBCs Platelet Estimate % Immature Plt Fraction Anisocytosis Tear Drop Cells Ovalocytes Schistocytes Sodium Potassium Chloride Carbon Dioxide Anion Gap BUN Creatinine Estim Creat Clear Calc Estimated GFR Glucose Lactic Acid 2.7 H 2.3 H Calcium Magnesium Total Bilirubin AST ALT Alkaline Phosphatase Total Protein Albumin Procalcitonin 0.9 07/06/24 07/07/24 07/07/24 23:05 02:09 05:07 WBC 10.4 H RBC 2.35 L Hgb 8.2 L Hct 26.6 L MCV 113.2 H MCH 34.9 H MCHC 30.8 L RDW 23.4 H Plt Count 20 L* MPV TNP Immature Gran % (Auto) Not Reportable Neut % (Auto) Not Reportable Lymph % (Auto) Not Reportable [place] % (Auto) Not Reportable Eos % (Auto) Not Reportable Baso % (Auto) Not Reportable Lymph # (Auto) Not Reportable [place] # (Auto) Not Reportable Eos # (Auto) Not Reportable Baso # (Auto) Not Reportable Abs Immat Gran (auto) Not Reportable Absolute Neuts (auto) Not Reportable Absolute Nucleated RBC Not Reportable Total Counted 100 Neutrophils % (Manual) 68 Band Neutrophils % 7 H Lymphocytes % (Manual) 15 L Monocytes % (Manual) 6 Eosinophils % (Manual) 1 Basophils % (Manual) 2 H Metamyelocytes % 1 Nucleated RBC % Not Reportable Abs Neuts (Manual) 7.80 H Abs Lymphs (Manual) 1.56 Abs Monocytes (Manual) 0.62 Absolute Eos (Manual) 0.10 Abs Basophils (Manual) 0.20 H Nucleated RBCs 3 Platelet Estimate Decreased % Immature Plt Fraction 9.5 Anisocytosis 1+ Tear Drop Cells 1+ Ovalocytes 1+ Schistocytes None seen Sodium 142 Potassium 4.2 Chloride 113 H Carbon Dioxide 19 L Anion Gap 10 BUN 46 H Creatinine 1.26 H Estim Creat Clear Calc 34 Estimated GFR 42 L Glucose 87 Lactic Acid 2.1 H 1.8 4.7 H* Calcium 9.9 Magnesium 1.8 Total Bilirubin 1.4 H AST 339 H ALT 104 H Alkaline Phosphatase 527 H Total Protein 5.0 L Albumin 2.8 L Procalcitonin Quality VTE Prophylaxis VTE prophylaxis: mechanical ordered
--- NOTE | 2024-07-07 08:45 | P.DS_ITS ---
DS: Admitting Diagnosis Discharge Date 07/07/24 DS: Summary Time Spent with Patient Time attestation: Total time spent providing and/or coordinating discharge services: DS: Data Data Completed and Pending Labs on day of discharge: Labs from last 24 hours 07/07/24 07/07/24 07/06/24 05:07 02:09 23:05 WBC 10.4 H RBC 2.35 L Hgb 8.2 L Hct 26.6 L MCV 113.2 H MCH 34.9 H MCHC 30.8 L RDW 23.4 H Plt Count 20 L* MPV TNP Immature Gran % (Auto) Not Reportable Neut % (Auto) Not Reportable Lymph % (Auto) Not Reportable [place] % (Auto) Not Reportable Eos % (Auto) Not Reportable Baso % (Auto) Not Reportable Lymph # (Auto) Not Reportable [place] # (Auto) Not Reportable Eos # (Auto) Not Reportable Baso # (Auto) Not Reportable Abs Immat Gran (auto) Not Reportable Absolute Neuts (auto) Not Reportable Absolute Nucleated RBC Not Reportable Total Counted 100 Neutrophils % (Manual) 68 Band Neutrophils % 7 H Lymphocytes % (Manual) 15 L Monocytes % (Manual) 6 Eosinophils % (Manual) 1 Basophils % (Manual) 2 H Metamyelocytes % 1 Nucleated RBC % Not Reportable Abs Neuts (Manual) 7.80 H Abs Lymphs (Manual) 1.56 Abs Monocytes (Manual) 0.62 Absolute Eos (Manual) 0.10 Abs Basophils (Manual) 0.20 H Nucleated RBCs 3 Platelet Estimate Decreased % Immature Plt Fraction 9.5 Anisocytosis 1+ Tear Drop Cells 1+ Ovalocytes 1+ Schistocytes None seen Sodium 142 Potassium 4.2 Chloride 113 H Carbon Dioxide 19 L Anion Gap 10 BUN 46 H Creatinine 1.26 H Estim Creat Clear Calc 34 Estimated GFR 42 L Glucose 87 Lactic Acid 4.7 H* 1.8 2.1 H Calcium 9.9 Magnesium 1.8 Total Bilirubin 1.4 H AST 339 H ALT 104 H Alkaline Phosphatase 527 H Total Protein 5.0 L Albumin 2.8 L Procalcitonin 07/06/24 07/06/24 07/06/24 16:06 09:50 07:26 WBC RBC Hgb Hct MCV MCH MCHC RDW Plt Count MPV Immature Gran % (Auto) Neut % (Auto) Lymph % (Auto) [place] % (Auto) Eos % (Auto) Baso % (Auto) Lymph # (Auto) [place] # (Auto) Eos # (Auto) Baso # (Auto) Abs Immat Gran (auto) Absolute Neuts (auto) Absolute Nucleated RBC Total Counted Neutrophils % (Manual) Band Neutrophils % Lymphocytes % (Manual) Monocytes % (Manual) Eosinophils % (Manual) Basophils % (Manual) Metamyelocytes % Nucleated RBC % Abs Neuts (Manual) Abs Lymphs (Manual) Abs Monocytes (Manual) Absolute Eos (Manual) Abs Basophils (Manual) Nucleated RBCs Platelet Estimate % Immature Plt Fraction Anisocytosis Tear Drop Cells Ovalocytes Schistocytes Sodium Potassium Chloride Carbon Dioxide Anion Gap BUN Creatinine Estim Creat Clear Calc Estimated GFR Glucose Lactic Acid 2.3 H 2.7 H Calcium Magnesium Total Bilirubin AST ALT Alkaline Phosphatase Total Protein Albumin Procalcitonin 0.9 Preliminary micro results at discharge 07/06/24 03:38 Blood Culture - Preliminary Blood Discharge Plan Discharge Consulting providers: Nia Marino Patient Instructions: Aspirin (By mouth) Patient Language: [place] Discharge Medications: No Action multivitamin Tablet 1 tablet PO DAILY famotidine 20 mg Tablet 20 mg PO DAILY Rx Instructions: before dinner ascorbic acid (vitamin C) 500 mg Tablet 500 mg PO BID Patient Comments: . vitamin [id number] acid 1-0.8 mg Tablet 1,000 tablet PO DAILY megestrol 400 mg/10 mL (40 mg/mL) suspension 400 mg PO DAILY ferrous sulfate 325 mg (65 mg iron) Tablet 325 mg PO BID acetaminophen 500 mg Capsule 1,000 mg PO Q8H PRN (Reason: Pain) Patient Comments: .............. diphenoxylate-atropine 2.5-0.025 mg tablet 1 tablet PO PRN PRN (Reason: Diarrhea) Patient Comments: If lomotil isn't working ondansetron 8 mg tablet,disintegrating 8 mg PO Q8H PRN (Reason: Nausea) loperamide 2 mg Capsule 2 mg PO PRN PRN (Reason: Diarrhea) Rx Instructions: Take first prochlorperazine maleate 10 mg tablet 10 mg PO Q8H PRN (Reason: nausea and vomiting) magnesium citrate 34 mg tablet,chewable 34 mg PO BID Patient Comments: gummy form prednisone 10 mg tablet 10 mg PO DAILY Rx Instructions: day two of decreasing dose lisinopril 20 mg tablet See Rx Instructions .ROUTE .COMPLEX Qty: 90 2RF Dose Instruction: TAKE 1 TABLET BY MOUTH DAILY Rx Instructions: TAKE 1 TABLET BY MOUTH DAILY Date of admission: 07/06/24 00:34 Primary Care Provider: Alexey Medrano Admitting Provider: Dre Russell Attending physician on admission: Dre Russell Condition: Stable
[2024-07-07] MEDS: CEFEPIME 2 GM/NS 50 ML 2 GM/50 ML BAG IVPB (11:35)
[2024-07-07 14:00] VITALS: BP 163/72; PULSE 119; RESP 18; TEMP 36.3; O2SAT 82
[2024-07-07] MEDS: LORazepam INJ (*CRX) 2 MG/ML VIAL 1 MG IV PUSH ×2 (17:30→20:50)
[2024-07-08] MEDS: HYDROmorphone HCL INJ (*CRX) 2 MG/ML VIAL 1 MG IV PUSH ×2 (02:44→08:30)
[2024-07-08 06:00] VITALS: PULSE 129; RESP 14; TEMP 35.7; O2SAT 72
[2024-07-08] MEDS: CENTRAL LINE FLUSH 10 ML IV PUSH (06:51)
[2024-07-08] MEDS: LORazepam INJ (*CRX) 2 MG/ML VIAL 1 MG IV PUSH (08:32)
--- NOTE | 2024-07-08 08:59 | PC.NURSE ---
pt found agitated, moaning, groaning, squirming in bed; this RN gave medication to help calm pt down; pt also found on room air with cannula on bed; vitals taken with pt's O2 saturation at 62%, pt placed on 5L (found already at this setting before placing cannula) supplemental O2 for comfort. pt appears to be resting comfortably at this time, respirations 18/min.
[2024-07-08 09:00] VITALS: BP 95/45; PULSE 131; RESP 18; TEMP 36.1; O2SAT 62; O2SAT 85
--- NOTE | 2024-07-08 09:15 | P.DS_ITS ---
DS: Admitting Diagnosis Discharge Date 07/08/24 Admitting Diagnosis Weakness DS: Discharge Diagnosis Discharge Diagnosis (1) Metastatic malignant neoplasm to breast: Code(s): C79.81 - Secondary malignant neoplasm of breast Status: Acute (2) Sepsis: Code(s): A41.9 - Sepsis, unspecified organism Status: Acute (3) Pneumonia: Code(s): J18.9 - Pneumonia, unspecified organism Status: Acute (4) Acute hypoxemic respiratory failure: Code(s): J96.01 - Acute respiratory failure with hypoxia Status: Acute (5) Adult failure to thrive: Code(s): R62.7 - Adult failure to thrive Status: Acute (6) Weakness: Code(s): R53.1 - Weakness Status: Acute (7) Metastatic disease: Code(s): C79.9 - Secondary malignant neoplasm of unspecified site Status: Acute (8) GERD (gastroesophageal reflux disease): Code(s): K21.9 - Gastro-esophageal reflux disease without esophagitis Status: Chronic (9) Anemia: Code(s): D64.9 - Anemia, unspecified Status: Chronic DS: Summary Hospital Course Hospital Course: Workup performed in the emergency room consisted of labs and imaging. Labs significant for findings of leukocytosis at 17.8 with 7% bands. It is unclear whether not this was from her residual infection or from the dosing of steroids upon discharge from [facility]. Patient is anemic with hemoglobin of 10.0 which is her baseline and has thrombocytopenia with platelet level of 43. Metabolic pane l with mild renal insufficiency with creatinine of 1.44. BUN is 58. Patient has transaminitis with AST of 284, ALT of 107, alk-phos elevated at 653 and total bilirubin of 1.7, this is consistent with concerns for liver metastasis. Urinalysis remarkable only for trace ketones and 1+ protein. Chest x-ray performed showing multiple focal infiltrates. Head CT 07/06/24 08:46 IMPRESSION: 1. 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 No other acute intracranial process. 2. Mild scattered white matter hypoattenuation consistent with chronic small vessel ischemic disease. Patient received antibiotics. Patient with known breast cancer with metastasis to the bone and according to imaging performed recently at [facility] showing lesion on liver that is highly concerning for metastasis and does correlate with patient's transaminitis and elevated bilirubin and alk-phos. Oncologist Dr. Rivera saw patient on 07/06/24. Chemotherapy plan and PET scan discontinued due to her not being a candidate for any further chemotherapy given her declining performance status. Recommended hospice. Patient continued to worsen and increase pain. agreed to change to DNR, comfort care, and hospice consulted on 07/07/24. Patient signed up with [facility] and discharged home today on hospice. Status at Discharge Functional status at discharge: bed bound Overall status at discharge: patient is not back to baseline Time Spent with Patient Time attestation: Total time spent providing and/or coordinating discharge services: Time spent: Greater than 30 minutes Exam Const: General: comfortable and no acute distress Resp: Effort & Inspection: normal respiratory effort Auscultation: diminished lung sounds Cardio: Rate: tachycardic GI: GI Palp: Yes Soft to palpation Auscultation: normal bowel sounds Extrem: Other: Trace edema to bilateral hands and ankles. Psych: Other: Sleeping. DS: Data Data Completed and Pending Labs on day of discharge: Preliminary micro results at discharge 07/06/24 07:24 Blood Culture - Preliminary Blood 07/06/24 03:38 Blood Culture - Preliminary Blood Discharge Plan Discharge Attending physician on discharge: Arabella Gamino Consulting providers: Nia Marino Discharging Clinician: Melanie Gamboa Anticipated Discharge Date/Time: 07/08/24 10:00 Patient Disposition: Hospice - Home Activity: june shower Diet: as tolerated Discharge Instructions: * Home on [facility]. Patient Instructions: Aspirin (By mouth) Patient Language: [place] Stand Alone Forms: General Discharge Information Discharge Medications: Continued multivitamin Tablet 1 tablet PO DAILY famotidine 20 mg Tablet 20 mg PO DAILY Rx Instructions: before dinner ascorbic acid (vitamin C) 500 mg Tablet 500 mg PO BID Patient Comments: . vitamin S69-whjik acid 1-0.8 mg Tablet 1,000 tablet PO DAILY megestrol 400 mg/10 mL (40 mg/mL) suspension 400 mg PO DAILY ferrous sulfate 325 mg (65 mg iron) Tablet 325 mg PO BID acetaminophen 500 mg Capsule 1,000 mg PO Q8H PRN (Reason: Pain) Patient Comments: .............. diphenoxylate-atropine 2.5-0.025 mg tablet 1 tablet PO PRN PRN (Reason: Diarrhea) Patient Comments: If lomotil isn't working ondansetron 8 mg tablet,disintegrating 8 mg PO Q8H PRN (Reason: Nausea) loperamide 2 mg Capsule 2 mg PO PRN PRN (Reason: Diarrhea) Rx Instructions: Take first prochlorperazine maleate 10 mg tablet 10 mg PO Q8H PRN (Reason: nausea and vomiting) magnesium citrate 34 mg tablet,chewable 34 mg PO BID Patient Comments: gummy form prednisone 10 mg tablet 10 mg PO DAILY Rx Instructions: day two of decreasing dose lisinopril 20 mg tablet See Rx Instructions .ROUTE .COMPLEX Qty: 90 2RF Dose Instruction: TAKE 1 TABLET BY MOUTH DAILY Rx Instructions: TAKE 1 TABLET BY MOUTH DAILY Date of admission: 07/06/24 00:34 Primary Care Provider: Alexey Medrano Admitting Provider: Dre Russell Attending physician on admission: Dre Russell Condition: Terminal Hospitalist MIPS Heart Failure (Exclusion) Patient has history of Heart Transplant or Left Ventricular Assistive Device?: No IF YES, STOP HERE Heart Failure (Qualifier) Patient has current or prior documentation of LVEF less than or equal to 40%, or mod/servere depressed LVSF?: No IF NO, STOP HERE
[2024-07-08 09:24] VITALS: PULSE 133; RESP 18; O2SAT 85
== END 2024-07-08 12:10 | disposition hospice, home (50) ==
LOC: ANHED 21:04 → ANH3MEDSUR 07-06 02:59
PROVIDERS: Nurse Practitioner Adult Health; Nurse Practitioner Family; Admitting Provider Internal Medicine; Emergency Provider Emergency Medicine; PCP Internal Medicine; Visit Provider Family Medicine
DX: A41.9 Sepsis, unspecified organism (principal); J18.9 Pneumonia, unspecified organism; J96.01 Acute respiratory failure with hypoxia; C50.911 Malignant neoplasm of unspecified site of right female breast; C79.51 Secondary malignant neoplasm of bone; Z17.410 Hormone receptor positive with human epidermal growth factor receptor 2 positive status; K76.9 Liver disease, unspecified; D64.9 Anemia, unspecified; E86.0 Dehydration; R41.82 Altered mental status, unspecified; R53.1 Weakness; R62.7 Adult failure to thrive; Z68.27 Body mass index [BMI] 27.0-27.9, adult; I10 Essential (primary) hypertension; K21.9 Gastro-esophageal reflux disease without esophagitis; Z66 Do not resuscitate; Z79.899 Other long term (current) drug therapy
CPT/HCPCS: 36415; 70450; 71045; 80053; 81001; 83605; 83735; 84145; 85025; 85055; 87040; 96361; 96365; 96366; 96367; 96374; 96375; 96376; 99285; A9270; G0378; J0456; J0692; J0696; J1171; J1642; J2060; J2270; J7120